=== PATIENT | male | born 1950 | race Caucasian/White ===

== ENCOUNTER → 2016-08-04 | Day surgery (SDC) | payer OTHER, MEDICARE ==
[2016-07-14 07:57] VITALS: Ht 177.8 cm; Wt 104.5 kg
[~2016-08-04] VITALS: Ht 177.8 cm; Wt 104.5 kg
[~2016-08-04] MED LIST: ASPI81TA28 PO; BRIM0.2S OPR; BROM0.07 OPL; HYDR-4383 PO; LATA0.009 OPB; LIDOCAINE HCL 1% MPF 5 ML VIAL ONE; LISI1TAB3 PO; PHEN32.44 PO; PRED10TA PO; PRED1SUS3 OPL; SIMV20TA2 PO; SODIUM CHLORIDE 0.9% INJ 10 ML VIAL ONE
--- NOTE | 2016-08-04 13:24 | History & Physical Bridge - SC ---
H&P Re-Evaluation Bridge Note: I have examined the patient, reviewed the History & Physical and in the interval since the performance of the History & Physical I have noted the following changes of clinical significance: No changes noted
[2016-08-04 13:50] VITALS: TEMP 37
--- NOTE | 2016-08-04 13:58 | Discharge Instructions ---
Discharge Instructions Date of Service Aug 04, 2016. Visit Reason for Visit: Lumbar Disc Degeneration Discharge Discharge Diagnosis / Problem: Right leg pain Discharge Goals Goal(s): Decrease discomfort, Improve function Activity Recommendations Activity Limitations: resume your previous activity Anesthesia . Post Anesthesia Instructions: If you have had General Anesthesia or IV Sedation: * Do not drive today. * Resume driving when surgeon permits. * Do not make important decisions or sign legal documents today. * Call surgeon for: 1. Temperature elevations greater than 101 degrees F. 2. Uncontrollable pain. 3. Excessive bleeding. 4. Persistent nausea and vomiting. 5. Medication intolerance (nausea, vomiting or rash). * For nausea and vomiting use only clear liquids such as: tea, soda, bouillon until nausea subsides, then gradually increase diet as tolerated. * If you have any concerns or questions, call your surgeon's office. If physician is unavailable and it is an emergency, call 911 or go to the nearest emergency room. . Diet Recommendations Recommended Home Diet: resume previous diet Procedures Procedures Performed: Caudal Epidural Steroid Injection Pending Studies Studies pending at discharge: no Medical Emergencies . Who to Call and When: Medical Emergencies: If at any time you feel your situation is an emergency, please call 911 immediately. . Non-Emergent Contact Non-Emergency issues call your: Specialist . . "Provider Documentation" section prepared by Valentino Milton.
[2016-08-04 14:01] VITALS: BP 133/80; PULSE 68; O2SAT 98
--- NOTE | 2016-08-04 14:34 | OPERATIVE REPORT ---
DATE OF OPERATION: 08/04/2016 PREOPERATIVE DIAGNOSIS: History of a left hemilaminectomy L5-S1, L5-S1 disc disease with persistent right lower extremity radiculopathy. POSTOPERATIVE DIAGNOSIS: Same. PROCEDURE: Caudal epidural steroid injection under fluoroscopic guidance. SURGEON: Dr. Valentino Milton. INDICATIONS: The patient is a 66-year-old white male who has received caudal epidurals in the past with very good results in terms of relieving pain. He last underwent one in October with good results. However, the pain has returned and is problematic and functionally limiting to him. He presents today for an epidural steroid injection to provide him with relief. PHYSICAL EXAMINATION: GENERAL: Pleasant male seated comfortably in no apparent distress. MUSCULOSKELETAL: Lumbar paraspinal muscles had some mild sciatic notch sensitivity. He had normal lower extremity strength. Negative seated straight leg raises. CONSENT: Verbal and written consent was obtained from the patient. Risks and benefits were reviewed. Risks include but are not limited to epidural abscess and allergic reaction and he wishes to proceed. PROCEDURE: The patient was taken back to the special procedures room of the [facility] where he was maintained in a prone position. Backside was cleansed with Betadine x3 and a dry sterile dressing was applied. Fluoroscope was used to identify the sacral hiatus and the overlying skin was then anesthetized with 4 mL of lidocaine 1% with a 25 gauge 1.5-inch needle with 5 mL of preservative free sodium chloride. A 25 gauge 3.5 inch spinal needle was then directed into the canal and advanced under fluoroscopic guidance. He then underwent injection after negative aspiration of 40 mg of Depo-Medrol and 5 mL of preservative free sodium chloride. Injection was well tolerated. DISPOSITION: 1. The patient is taken out into the discharge recovery area where he will be discharged home once discharge criteria have been met. 2. Follow up in the [facility] office in 2-4 weeks. I attest to the content of the Intraoperative Record and any orders documented therein. Any exceptio ns are noted below.
== END | disposition home or self-care (01) ==
LOC: X.SURG 12:47
PROVIDERS: ATTEND Physical Medicine & Rehabilitation
DX: M51.37 Other intervertebral disc degeneration, lumbosacral region (principal); M54.17 Radiculopathy, lumbosacral region

== ENCOUNTER → 2016-08-16 | Day surgery (SDC) | payer OTHER, MEDICARE ==
[2016-07-22 10:28] VITALS: Ht 177.8 cm; Wt 104.5 kg
[~2016-08-16] VITALS: Ht 177.8 cm; Wt 104.5 kg
[~2016-08-16] MED LIST changes: +500ML BSS 0.3ML EPI 1:1000PF IRRIG ONE; +ACETAMINOPHEN 325 MG TAB PO PRN; +AMVISC PLUS 0.8ML SYRINGE INT OCU ONE; +ATROPINE SULFATE 0.1 MG/ML 5ML SYR IV PRN; +BSS FLUSH ONE; +EpHEDrine SULFATE INJ 50 MG/ML AMP IV PRN; +EpINEphrine INJ 1MG/ML AMP 1 MG/ML AMP ONE; +LACTATED RINGER'S 1000ML 500 ML IV SCH; +LIDOCAINE 3.5% OPH GEL PER APPLICATION CHARGE ONE; +LIDOCAINE HCL 1% MPF 2 ML VIAL ONE; -LIDOCAINE HCL 1% MPF 5 ML VIAL ONE; +MIDAZOLAM HCL 1 MG/ML 2ML VIAL ONE; +OCUCOAT 1 ML SOLN IO ONE; +POVIDONE-IODINE OP SOLN 30 ML BTL ONE; -PRED10TA PO; +PROPARACAINE 0.5% OP SOLN PER DROP CHARGE OPR SCH; -SODIUM CHLORIDE 0.9% INJ 10 ML VIAL ONE; +TOBRAMYCIN/DEXAMETHASONE OPH OINT PER APPLN CHARGE ONE
[2016-08-16] MEDS: PHENYLEPHRINE HCL 2.5% OP SOLN PER DROP CHARGE OPR SCH ×2 (09:33→09:38)
[2016-08-16] MEDS: TROPICAMIDE 1% OP SOLN PER DROP CHARGE OPR SCH ×2 (09:34→09:39)
[2016-08-16] MEDS: CYCLOPENTOLATE HCL 1% OP SOLN PER DROP CHARGE OPR SCH ×2 (09:35→09:40)
[2016-08-16] MEDS: KETOROLAC 0.5% OP SOLN PER DROP CHARGE OPR SCH ×2 (09:36→09:41)
[2016-08-16] MEDS: GATIFLOXACIN OP SOLN PER DROP CHARGE OPR SCH ×2 (09:37→09:47)
--- NOTE | 2016-08-16 09:46 | History & Physical Bridge - SC ---
H&P Re-Evaluation Bridge Note: I have examined the patient, reviewed the History & Physical and in the interval since the performance of the History & Physical I have noted the following changes of clinical significance: Diagnosis: Right Cataract Procedure: Right Cataract Removal with Lens Implant No changes noted
[2016-08-16] MEDS: AMVISC PLUS 0.8ML SYRINGE INT OCU ONE ×4 (10:32→10:33)
--- NOTE | 2016-08-16 10:43 | Discharge Instructions-SurgCtr ---
Discharge Instructions Date of Service Aug 16, 2016. Visit Reason for Visit: Cataract Right Eye Discharge Discharge Diagnosis / Problem: cataract Discharge Goals Goal(s): Improve function Activity Recommendations Activity Limitations: per Instructions/Follow-up section Anesthesia . Post Anesthesia Instructions: If you have had General Anesthesia or IV Sedation: * Do not drive today. * Resume driving when surgeon permits. * Do not make important decisions or sign legal documents today. * Call surgeon for: 1. Temperature elevations greater than 101 degrees F. 2. Uncontrollable pain. 3. Excessive bleeding. 4. Persistent nausea and vomiting. 5. Medication intolerance (nausea, vomiting or rash). * For nausea and vomiting use only clear liquids such as: tea, soda, bouillon until nausea subsides, then gradually increase diet as tolerated. * If you have any concerns or questions, call your surgeon's office. If physician is unavailable and it is an emergency, call 911 or go to the nearest emergency room. . Instructions / Follow-Up Instructions / Follow-Up ACTIVITY RECOMMENDATIONS: * No strenuous lifting, jogging or running for 4 days * No swimming or yard work for 1 week. * Limited bending is permitted, such as putting on shoes. RETURN TO SCHOOL/WORK: No work until seen by physician in office. MEDICATIONS: Resume previous medications unless instructed otherwise by your surgeon. This includes eye drops for glaucoma. Zymaxid/Gatifloxacin (miramontes cap) - one drop every 2 hours until bedtime Nevanac/Ilevro/Prolensa/Ketorolac (dior cap) - one drop every 4 hours until bedtime Prednisolone (white/pink cap, SHAKE WELL) - one drop every 2 hours until bedtime Starting tomorrow - all 3 drops every 4 hours until seen in the office Optive drops - as needed for discomfort SPECIAL CARE INSTRUCTIONS: * Wear eyeshield when sleeping, for four nights. * You may wear your own glasses or sunglasses while awake. * You may read or watch TV * You may shower and wash your face, but be gentle around the eye and pat dry. * Blurry vision and mild irritation are normal. * Call office if pain is more severe or vision becomes dark at . FOLLOW UP VISIT: Follow-up with Dr Velazquez tomorrow. Diet Recommendations Home Diet: resume previous diet Procedures Procedures Performed: Right Cataract Phacoemulsification With Intraocular Lens Implant Pending Studies Studies pending at discharge: no Medical Emergencies . Who to Call and When: Medical Emergencies: If at any time you feel your situation is an emergency, please call 911 immediately. . Non-Emergent Contact Non-Emergency issues call your: Paper Folder . . "Provider Documentation" section prepared by Dirk Velazquez.
--- NOTE | 2016-08-16 10:43 | [facility] Operative Report ---
Operative Report Date of Service Aug 16, 2016. Operative Report 1. PREOPERATIVE DIAGNOSIS: Cataract of the right eye. 2. POSTOPERATIVE DIAGNOSIS: Same. 3. PROCEDURE: Phacoemulsification with intraocular lens implantation of the right eye. SURGEON: Dr. Dirk Velazquez. ANESTHESIA: Topical Lidocaine gel, 1% Non- Preserved intracameral Lidocaine, and monitored intravenous sedation. INDICATIONS FOR THE PROCEDURE: The patient is a 66 - year-old male with a history of cataract of the right eye causing significant visual impairment. The details of the proposed procedure were explained to the patient who asked appropriate questions and following discussion of all risks, benefits and alternatives agreed to have the procedure done. 4. OPERATION AND FINDINGS: DESCRIPTION OF PROCEDURE: After informed consent was obtained, the patient was brought to the Operating Room at the [facility]. The patient was placed in a supine position and then the right eye was prepped and draped in the usual sterile fashion for intraocular surgery. A drop of topical Lidocaine gel was placed in the operative eye. A wire lid speculum was then placed in the fornices. A corneal paracentesis was then created temporally. The Non-Preserved Lidocaine was then instilled into the anterior chamber. The anterior chamber was then pressurized with viscoelastic. A 2.0 mm clear corneal incision was then created temporally. A cystotome was inserted into the anterior chamber and used to create a tear in the anterior lens capsule. This capsular tear was then used to create a small flap and the flap was dragged in a counterclockwise direction in order to create a continuous curvilinear capsulorrhexis. Hydrodissection was accomplished with balanced salt solution. Phacoemulsification of the lens nucleus was then performed in a standard [id number] technique. The phaco time was 39 seconds with an average power of 19 %. The remaining cortical material was removed using irrigation aspiration. The capsular bag was then filled with viscoelastic. A B[employer]ch [employer] Lomb MI60L +18.0 diopters lens was then loaded into the injector and injected into the capsular bag. The remaining viscoelastic was removed with the irrigation aspiration handpiece. The wound was hydrated and then checked and found to be watertight. The intraocular pressure was checked and found to be adequate. The wire lid speculum was removed and the patient's face was cleaned and dried. TobraDex ointment was placed in the inferior fornix. The patient was discharged to the Recovery Room having tolerated the procedure well. There were no complications. The patient will be seen tomorrow in the office for follow-up. I attest to the content of the Intraoperative Record and any orders documented therein. Any exceptions are noted below.
[2016-08-16 10:45] VITALS: TEMP 36.7
[2016-08-16 10:58] VITALS: BP 131/74; PULSE 66; O2SAT 96
--- NOTE | 2016-08-16 11:00 | Anesthesia Progress Nt - [facility] ---
Anesthesia Post Op Note Date & Time Aug 16, 2016 at 10:59 Vital Signs Pain Intensity: 0 Vital Signs Past 12 Hours Date Time Temp Pulse Resp B/P Pulse Ox O2 Delivery O2 Flow Rate FiO2 08/16/16 10:45 36.7 66 18 148/82 97 Room Air 08/16/16 09:16 36.8 72 16 145/73 97 Room Air Notes Mental Status: alert / awake / arousable, participated in evaluation Pt Amnestic to Procedure: Yes Nausea / Vomiting: adequately controlled Pain: adequately controlled Airway Patency, RR, SpO2: stable & adequate BP & HR: stable & adequate Hydration State: stable & adequate Anesthetic Complications: no major complications apparent
== END | disposition home or self-care (01) ==
LOC: X.SURG 08:47
PROVIDERS: ATTEND Ophthalmology
DX: H26.9 Unspecified cataract (principal); R56.9 Unspecified convulsions; I10 Essential (primary) hypertension; F17.200 Nicotine dependence, unspecified, uncomplicated; E78.5 Hyperlipidemia, unspecified; Z79.899 Other long term (current) drug therapy; Z79.82 Long term (current) use of aspirin; Z83.6 Family history of other diseases of the respiratory system

== ENCOUNTER → 2016-09-13 | Day surgery (SDC) | payer OTHER, MEDICARE ==
[2016-08-29 12:02] VITALS: Ht 177.8 cm; Wt 102.3 kg
[~2016-09-13] VITALS: Ht 177.8 cm; Wt 102.3 kg
[~2016-09-13] MED LIST changes: +ONDANSETRON INJ 2 MG/ML 2 ML VIAL IV PRN; +PROPARACAINE 0.5% OP SOLN PER DROP CHARGE OPL SCH; -PROPARACAINE 0.5% OP SOLN PER DROP CHARGE OPR SCH
[2016-09-13] MEDS: PHENYLEPHRINE HCL 2.5% OP SOLN PER DROP CHARGE OPL SCH ×2 (10:07→10:12)
[2016-09-13] MEDS: TROPICAMIDE 1% OP SOLN PER DROP CHARGE OPL SCH ×2 (10:08→10:13)
[2016-09-13] MEDS: CYCLOPENTOLATE HCL 1% OP SOLN PER DROP CHARGE OPL SCH ×2 (10:09→10:14)
[2016-09-13] MEDS: KETOROLAC 0.5% OP SOLN PER DROP CHARGE OPL SCH ×2 (10:10→10:15)
[2016-09-13] MEDS: GATIFLOXACIN OP SOLN PER DROP CHARGE OPL SCH ×2 (10:11→10:21)
--- NOTE | 2016-09-13 11:13 | [facility] Operative Report ---
Operative Report Date of Service September 13, 2016. Operative Report 1. PREOPERATIVE DIAGNOSIS: Cataract of the left eye. 2. POSTOPERATIVE DIAGNOSIS: Same. 3. PROCEDURE: Phacoemulsification with intraocular lens implantation of the left eye. SURGEON: Dr. Dirk Velazquez. ANESTHESIA: Topical Lidocaine gel, 1% Non- Preserved intracameral Lidocaine, and monitored intravenous sedation. INDICATIONS FOR THE PROCEDURE: The patient is a 66 - year-old male with a history of cataract of the left eye causing significant visual impairment. The details of the proposed procedure were explained to the patient who asked appropriate questions and following discussion of all risks, benefits and alternatives agreed to have the procedure done. 4. OPERATION AND FINDINGS: DESCRIPTION OF PROCEDURE: After informed consent was obtained, the patient was brought to the Operating Room at the [facility]. The patient was placed in a supine position and then the left eye was prepped and draped in the usual sterile fashion for intraocular surgery. A drop of topical Lidocaine gel was placed in the operative eye. A wire lid speculum was then placed in the fornices. A corneal paracentesis was then created temporally. The Non-Preserved Lidocaine was then instilled into the anterior chamber. The anterior chamber was then pressurized with viscoelastic. A 2.0 mm clear corneal incision was then created temporally. A cystotome was inserted into the anterior chamber and used to create a tear in the anterior lens capsule. This capsular tear was then used to create a small flap and the flap was dragged in a counterclockwise direction in order to create a continuous curvilinear capsulorrhexis. Hydrodissection was accomplished with balanced salt solution. Phacoemulsification of the lens nucleus was then performed in a standard [id number] technique. The phaco time was 28 seconds with an average power of 15 %. The remaining cortical material was removed using irrigation aspiration. The capsular bag was then filled with viscoelastic. A Bausch & Lomb MI60L +18.0 diopters lens was then loaded into the injector and injected into the capsular bag. The remaining viscoelastic was removed with the irrigation aspiration handpiece. The wound was hydrated and then checked and found to be watertight. The intraocular pressure was checked and found to be adequate. The wire lid speculum was removed and the patient's face was cleaned and dried. TobraDex ointment was placed in the inferior fornix. The patient was discharged to the Recovery Room having tolerated the procedure well. There were no complications. The patient will be seen tomorrow in the office for follow-up. I attest to the content of the Intraoperative Record and any orders documented therein. Any exceptions are noted below.
--- NOTE | 2016-09-13 11:13 | Discharge Instructions-SurgCtr ---
Discharge Instructions Date of Service September 13, 2016. Visit Reason for Visit: Left Cataract Discharge Discharge Diagnosis / Problem: cataract Discharge Goals Goal(s): Improve function Activity Recommendations Activity Limitations: per Instructions/Follow-up section Anesthesia . Post Anesthesia Instructions: If you have had General Anesthesia or IV Sedation: * Do not drive today. * Resume driving when surgeon permits. * Do not make important decisions or sign legal documents today. * Call surgeon for: 1. Temperature elevations greater than 101 degrees F. 2. Uncontrollable pain. 3. Excessive bleeding. 4. Persistent nausea and vomiting. 5. Medication intolerance (nausea, vomiting or rash). * For nausea and vomiting use only clear liquids such as: tea, soda, bouillon until nausea subsides, then gradually increase diet as tolerated. * If you have any concerns or questions, call your surgeon's office. If physician is unavailable and it is an emergency, call 911 or go to the nearest emergency room. . Instructions / Follow-Up Instructions / Follow-Up ACTIVITY RECOMMENDATIONS: * No strenuous lifting, jogging or running for 4 days * No swimming or yard work for 1 week. * Limited bending is permitted, such as putting on shoes. RETURN TO SCHOOL/WORK: No work until seen by physician in office. MEDICATIONS: Resume previous medications unless instructed otherwise by your surgeon. This includes eye drops for glaucoma. Zymaxid/Gatifloxacin (miramontes cap) - one drop every 2 hours until bedtime Nevanac/Ilevro/Prolensa/Ketorolac (dior cap) - one drop every 4 hours until bedtime Prednisolone (white/pink cap, SHAKE WELL) - one drop every 2 hours until bedtime Starting tomorrow - all 3 drops every 4 hours until seen in the office Optive drops - as needed for discomfort SPECIAL CARE INSTRUCTIONS: * Wear eyeshield when sleeping, for four nights. * You may wear your own glasses or sunglasses while awake. * You may read or watch TV * You may shower and wash your face, but be gentle around the eye and pat dry. * Blurry vision and mild irritation are normal. * Call office if pain is more severe or vision becomes dark at . FOLLOW UP VISIT: Follow-up with Dr Velazquez tomorrow. Diet Recommendations Home Diet: resume previous diet Procedures Procedures Performed: Left Cataract Phacoemulsification With Intraocular Lens Implant Pending Studies Studies pending at discharge: no Medical Emergencies . Who to Call and When: Medical Emergencies: If at any time you feel your situation is an emergency, please call 911 immediately. . Non-Emergent Contact Non-Emergency issues call your: Salon/Spa Manager . . "Provider Documentation" section prepared by Dirk Velazquez. .
[2016-09-13 11:14] VITALS: TEMP 36.6
[2016-09-13 11:30] VITALS: BP 129/75; PULSE 60; O2SAT 95
--- NOTE | 2016-09-13 11:43 | Anesthesiology Progress Note ---
Anesthesia Post Op Note Date & Time September 13, 2016 at 11:43 Vital Signs Pain Intensity: 0 Vital Signs Past 12 Hours Date Time Temp Pulse Resp B/P Pulse Ox O2 Delivery O2 Flow Rate FiO2 09/13/16 11:30 60 16 129/75 95 Room Air 09/13/16 11:14 36.6 59 16 122/70 95 Room Air 09/13/16 10:00 36.9 78 18 110/69 96 Room Air Notes Mental Status: alert / awake / arousable, participated in evaluation Pt Amnestic to Procedure: Yes Nausea / Vomiting: adequately controlled Pain: adequately controlled Airway Patency, RR, SpO2: stable & adequate BP & HR: stable & adequate Hydration State: stable & adequate Anesthetic Complications: no major complications apparent
--- NOTE | 2016-09-13 11:47 | Anesthesiology Progress Note ---
Anesthesia Post Op Note Date & Time September 13, 2016 at 11:47 Vital Signs Pain Intensity: 0 Vital Signs Past 12 Hours Date Time Temp Pulse Resp B/P Pulse Ox O2 Delivery O2 Flow Rate FiO2 09/13/16 11:30 60 16 129/75 95 Room Air 09/13/16 11:14 36.6 59 16 122/70 95 Room Air 09/13/16 10:00 36.9 78 18 110/69 96 Room Air Notes Mental Status: alert / awake / arousable, participated in evaluation Pt Amnestic to Procedure: Yes Nausea / Vomiting: adequately controlled Pain: adequately controlled Airway Patency, RR, SpO2: stable & adequate BP & HR: stable & adequate Hydration State: stable & adequate Anesthetic Complications: no major complications apparent
== END | disposition home or self-care (01) ==
LOC: X.SURG 09:46
PROVIDERS: ATTEND Ophthalmology
DX: H26.9 Unspecified cataract (principal); K21.9 Gastro-esophageal reflux disease without esophagitis; M19.90 Unspecified osteoarthritis, unspecified site; E78.00 Pure hypercholesterolemia, unspecified; I10 Essential (primary) hypertension; Z86.711 Personal history of pulmonary embolism; Z86.718 Personal history of other venous thrombosis and embolism; Z79.82 Long term (current) use of aspirin; R56.9 Unspecified convulsions; J44.9 Chronic obstructive pulmonary disease, unspecified; E66.9 Obesity, unspecified

== ENCOUNTER → 2016-12-19 | Outpatient (CLI) | payer OTHER, MEDICARE ==
[~2016-12-19] MED LIST changes: -500ML BSS 0.3ML EPI 1:1000PF IRRIG ONE; -ACETAMINOPHEN 325 MG TAB PO PRN; -AMVISC PLUS 0.8ML SYRINGE INT OCU ONE; -ATROPINE SULFATE 0.1 MG/ML 5ML SYR IV PRN; -BSS FLUSH ONE; -EpHEDrine SULFATE INJ 50 MG/ML AMP IV PRN; -EpINEphrine INJ 1MG/ML AMP 1 MG/ML AMP ONE; -LACTATED RINGER'S 1000ML 500 ML IV SCH; -LIDOCAINE 3.5% OPH GEL PER APPLICATION CHARGE ONE; -LIDOCAINE HCL 1% MPF 2 ML VIAL ONE; -MIDAZOLAM HCL 1 MG/ML 2ML VIAL ONE; -OCUCOAT 1 ML SOLN IO ONE; -ONDANSETRON INJ 2 MG/ML 2 ML VIAL IV PRN; -POVIDONE-IODINE OP SOLN 30 ML BTL ONE; -PROPARACAINE 0.5% OP SOLN PER DROP CHARGE OPL SCH; -TOBRAMYCIN/DEXAMETHASONE OPH OINT PER APPLN CHARGE ONE
--- NOTE | 2016-12-19 09:06 | DIAGNOSTIC IMAGING REPORT ---
LEFT UPPER EXT JOINT WITHOUT CLINICAL HISTORY: 66 years-old Male presenting with ACUTE PAIN OF LEFT SHOULDER, NO HISTORY OF CANCER, CONCERN FOR ROTATOR CUFF TEAR, INJECTION OF THE LEFT LEFT SHOULDER LAST WEDDAY. TECHNIQUE: Multisequence, multiplanar MR imaging of the left shoulder was performed without the use of intravenous contrast. IV contrast: None. COMPARISON: None. FINDINGS: Image quality is mildly degraded by motion artifact. Localizer images: Unremarkable. Bony cystic change subjacent to the greater tuberosity. Minimal bony edema noted in the acromion subjacent to extensive degenerative changes of the acromioclavicular joint. The undersurface of the acromion is concave without narrowing of the acromiohumeral interval area No subluxation of the humeral head. Articular cartilage grossly intact. No focal labral tear, however, increased signal within the superior labrum may suggest chronic degenerative change. Increased signal intensity within the biceps labral complex with focal linear defect at the bony glenoid insertion suggesting partial tear of the origin of the long head of the biceps. The long head of the biceps tendon remains within the intertubercular groove. Short head of the biceps tendon normal. Trace laminar fluid within the subacromial subdeltoid bursa with a small amount of joint fluid. Increased signal intensity diffusely within the supraspinatus and infraspinatus tendons in both the critical zone and insertion of fibers. Additionally, full-thickness tear of the supraspinatus at the critical zone is evident along the anterior fibers. There is also a full-thickness tear of the infraspinatus at the junction with the supraspinatus within the medial insertional fibers. Teres minor and subscapularis tendons intact. Normal muscle bulk. No evidence of extensive fatty atrophy of the rotator cuff musculature. IMPRESSION: 1. Full-thickness tear of the supraspinatus in the anterior fibers at the critical zone. 2. Full-thickness tear of the infraspinatus at the junction with the supraspinatus within the medial insertional fibers. 3. Concern for partial tear of the origin of the long head of the biceps at the bony glenoid. 4. Bony cystic change at the greater tuberosity suggest chronic impingement. 5. Degenerative changes of the acromioclavicular joint. Electronically signed by: Angel Mcclain M.D. 12/19/2016 9:05 AM Dictated Date/Time: 12/19/2016 8:53 AM
== END | disposition home or self-care (01) ==
LOC: C.MRI 07:45
PROVIDERS: ATTEND Orthopaedic Surgery
DX: M75.102 Unspecified rotator cuff tear or rupture of left shoulder, not specified as traumatic (principal); X58.XXXA Exposure to other specified factors, initial encounter

== ENCOUNTER 2023-06-14 12:59 | Observation (INO) ==
--- NOTE | 2023-06-14 13:07 | ED Triage Note ---
Date of Service June 14, 2023 Provider in Triage Author: Kermit Sparks History of Present Illness This patient was briefly evaluated while in triage. An abbreviated physical exam was performed. This patient is a 73-year-old Male who presents to the ED for evaluation of palpitations and episodes of passing out over the past. Patient does have an upcoming appointment with a manager food safety. The patient reports his symptoms have been ongoing since last January when he was diagnosed with COVID-19. Patient reports brain fog and lightheadedness. Patient denies any chest pain. He does report shortness of breath. Symptoms have been intermittent in nature. Last syncopal episode was this past Monday when he was rushing from an upper floor to lower floor in his house. Physical Exam CONSTITUTIONAL: Healthy and well nourished. Alert and oriented x 3. HEENT: Pupils equal, round and reactive. RESPIRATORY: Clear to auscultation bilaterally with no wheezing, crackles, rhonchi or stridor. CARDIOVASCULAR: Regular rate and rhythm with no murmurs, rubs or gallops. MUSCULOSKELETAL: Full range of motion of all joints without discomfort. INTEGUMENTARY: No rash or other significant dermatologic conditions noted. HEMATOLOGIC: No ecchymosis or petechiae. PSYCHIATRIC: Positive affect. NEUROLOGIC: No focal neurologic deficits noted. Initial orders for labs and / or imaging were placed and patient was placed in the waiting area until a bed is available. Please see further documentation for the full ED course.
--- NOTE | 2023-06-14 13:56 | CT Scan Report ---
CT head/brain wo con CLINICAL HISTORY: Syncope Technique: Contiguous axial CT images of the head were acquired from the base of the skull to the jacqueline godfrey without intravenous contrast administration. Images were viewed in brain, subdural and bone [facility] . Automated dose lowering techniques and/or adjustment according to patient size were utilized for this exam. Comparison: Comparison is made to CT head 1121 Findings: The ventricles, basal cisterns, and cerebral sulci are normal. There is no acute intracranial hemorrh age or evidence of acute territorial infarction. Neither mass effect, shift of the midline structures , nor abnormal extra-axial fluid collections are shown. Imaged portions of the paranasal sinuses and mastoid air cells are clear. The orbits appear normal. There are no acute fractures of the calvaria or scalp swelling. Impression: No acute intracranial hemorrhage, no evidence of acute territorial infarction or other acute intracra nial disease process. ACT 112: Negative or not required by law. Electronically signed by: Manuel Lopez M.D. 06/14/2023 1:55 PM
[2023-06-14 13:59] LABS: Basophils # (auto) 0.06 K/uL (0.00-0.20); Basophils % (auto) 0.8 %; Eosinophils # (auto) 0.12 K/uL (0.00-0.50); Eosinophils % (auto) 1.6 %; Hematocrit (blood only) 49.6 % (42.0-52.0); Hemoglobin 16.2 g/dl (14.0-18.0); Immature Granulocytes # (auto) 0.02 K/uL (0.01-0.20); Immature Granulocytes % (auto) 0.3 %; Lymphocytes # (auto) 2.01 K/uL (1.20-3.40); Mean Corpuscular Hemoglobin 29.9 pg (25.0-34.0); Mean Corpuscular Hgb Conc 32.7 g/dL (32.0-36.0); Mean Corpuscular Volume 91.7 fL (80.0-100.0); Mean Platelet Volume 9.6 fL (9.4-12.4); Monocytes # (auto) 0.66 K/uL (0.11-0.59); Monocytes % (auto) 8.9 %; Neutrophils # (auto) 4.57 K/uL (1.40-6.50); Neutrophils % (auto) 61.4 %; Platelet Count 354 K/uL (130-400); RDW Coefficient of Variation 15.8 % (11.5-14.5); RDW Standard Deviation 53.1 fL (36.4-46.3); Red Blood Count 5.41 M/uL (4.70-6.10); White Blood Count 7.44 K/ul (4.8-10.8)
[2023-06-14 14:19] LABS: Albumin Globulin Ratio 0.8 (0.9-2); Albumin Level 3.1 gm/dl (3.4-5.0); BUN Creatinine Ratio 20.5 (10-20); Bilirubin,Total 0.3 mg/dl (0.2-1.0); Creatinine Clr Calc Pharmacy 102.7 ml/min; Est GFR (African American) 103.1 ml/min; Est GFR (Non-African American) 88.9 ml/min; Globulin 3.8 gm/dl (2.5-4.0); Potassium 4.2 mmol/L (3.5-5.1); Total Protein 6.9 gm/dl (6.0-8.3)
[2023-06-14 14:25] LABS: Troponin I High Sensitivity 7.5 pg/ml (0-20)
[2023-06-14 14:28] LABS: INR 1.1 (0.9-1.1); Partial Thromboplastin Ratio 0.9; Partial Thromboplastin Time 26 Seconds (21-31); Prothrombin Time 12.2 Seconds (9.0-12.0)
[2023-06-14 14:32] LABS: Thyroid Stimulating Hormone 3.441 uIu/ml (0.300-4.500)
--- NOTE | 2023-06-14 14:33 | XRay Report ---
XR chest 1V not portable CLINICAL HISTORY: Chest pain, nonspecific TECHNIQUE: Single frontal radiograph of the chest was obtained. Comparison: Comparison is made to chest radiograph 12/03/2021 FINDINGS: Left shoulder arthroplasty is seen, new from prior. The cardiomediastinal silhouette is normal. The l ungs are clear. No evidence of pleural effusion or pneumothorax. IMPRESSION: No acute chest disease. ACT 112: Negative or not required by law. Electronically signed by: Manuel Lopez M.D. 06/14/2023 2:32 PM
[2023-06-14 15:07] LABS: D Dimer 1800 ug/L FEU (0-500)
[2023-06-14] MEDS: OPTIRAY 320 125ml IV ONE (16:08)
--- NOTE | 2023-06-14 16:28 | CT Scan Report ---
CT angio chest PE protocol CLINICAL HISTORY: PE TECHNIQUE: Multidetector row helical CT of the chest was performed with angiographic protocol. Flores l and sagittal reformations were obtained. Coronal and sagittal MIPS were obtained from the axial river a set and were submitted for review. Automated dose lowering techniques and/or adjustment according to patient size were utilized for this exam. CT DOSE: 783.52 mGy.cm Comparison: None available at the time of this dictation. FINDINGS: Lungs and pleura: Atelectasis versus scarring is seen in the dependent portions of the lungs. Bronchi al wall thickening is seen. Heart and pericardium: Heart size is normal. No pericardial effusion. Vessels: No evidence of pulmonary embolism. Mediastinum and phuong: Subcentimeter lymph nodes are seen. Chest wall and lower neck: Unremarkable. Abdomen: A hiatal hernia is seen. Bones: Unremarkable. IMPRESSION: No acute abnormality and in particular no evidence of pulmonary embolus. ACT 112: Negative or not required by law. Electronically signed by: Manuel Lopez M.D. 06/14/2023 4:27 PM
--- NOTE | 2023-06-14 16:57 | Emergency Department Note ---
Impression & Plan Syncope, Palpitation ED Provider Note ED Provider Note NAME: BETY CUI AGE:73 SEX: Male : 1950 ARRIVES VIA: [] INFORMANT: Patient ED PROVIDER(s): Vane Marquez DO CHIEF COMPLAINT: syncope HPI: This is a 73-year-old male presents emerged part with at bedside due to concern for recent syncopal events. She states last episode was on Monday when he passed out while working in their home. She states he did not remember the episode and it took a long time for him to be back to normal. He states he has had multiple frequent episodes ever since COVID of lightheadedness and has had intermittent hypotension when he checks it at home. Patient does feel some of it is related to dehydration. states even prior to that he had had episodes of hypotension and near syncope that they attributed to medications including eyedrops for his glaucoma. Patient states he feels the episodes coming on and gets lightheaded, sweaty, gets tunnel vision, and the next thing he knows he is on the floor waking up. He states with an episode 2 weeks ago he did hit his head on the toilet. He states when this first started 2 years ago they did take him off his lisinopril and he seemed better for several months. He states he does not use any anticoagulation. He does not get any preceding chest pain, shortness of breath, or headaches. denies any seizure-like activity in the episode she has noted. Patient states he does get intermittent palpitations that have been ongoing for quite some time, these are worse at night with laying down. He does have a scheduled appointment in [address] Jansen of cardiology. PAST MEDICAL HISTORY:See Below PAST SURGICAL HISTORY:See Below FAMILY HISTORY:See Below SOCIAL HISTORY:See Below HOME MEDICATIONS:See Below ALLERGIES:See Below VITALS:See Below PHYSICAL EXAMINATION: GENERAL: alert, well appearing, well nourished, no distress, non-toxic EYE EXAM: normal conjunctiva, PERRL and EOM's grossly intact OROPHARYNX: no exudate, no erythema, lips, buccal mucosa, and tongue normal and mucous membranes are moist NECK: supple, no nuchal rigidity, no adenopathy, non-tender LUNGS: Clear to auscultation. Normal chest wall mechanics, no w/r/r HEART: no murmurs, S1 normal and S2 normal ABDOMEN: abdomen soft, non-tender, normo-active bowel sounds, no masses, no rebound or guarding. BACK: Back is symmetrical on inspection and there is no deformity, no midline tenderness, no CVA tenderness. SKIN: no rashes, petechiae, orbruising UPPER EXTREMITIES: upper extremities are grossly normal. FROM, nml pulses b/l. LOWER EXTREMITIES: No pitting edema. FROM, nml pulses b/l. NEURO EXAM: Normal sensorium, cranial nerves II-XII grossly intact, normal speech, no facial droop,nogross weakness of arms, no gross weakness of legs. Gross sensation intact. No ataxia. Vital Signs: reviewed and remarkable Differential Diagnosis: vasovagal event, infection, hypoglycemia, electrolyte abnormalities, toxidrome, substance abuse, dysrhythmia, ACS, as well as others were entertained. MEDICAL DECISION MAKING: This is a 73-year-old male presents emergency department due to concern for several episodes of syncope in the last 2 to 3 weeks. Patient was afebrile vital signs stable. Labs drawn and sent, IV established, EKG and chest x-ray performed at bedside interpreted by me and patient monitored on telemetry. Patient initially sent for CT of the head from triage which was unremarkable. D-dimer came back elevated and patient does have prior history of PEs and so he was sent for CT angiography of the chest additionally. No PE is noted per radiology. Patient's other labs reassuring. Patient was given 1 L of normal saline based on our discussion of his poor water intake and likely coming dehydration. Patient is also had intermittent palpitations that do not necessarily seem related to his episodes of syncope although he states his syncope is always with exertion. After IV fluids given here orthostatics were performed and were negative. Ambulatory trial performed with nursing staff and patient appeared unsteady and reported feeling unsteady and off-balance. After additional bedside discussion regarding concern for his safety and going home, unclear etiology of his symptoms, and importance of additional evaluation, the case was discussed with the hospitalist team for additional evaluation and management. Patient had verbalized understanding of this and was in agreement with the plan. Consultation(s): 1943: Discussed with Dr. Calderon, [place] hospitalist, for additional evaluation. ER Treatment Provided: See below Diagnostics Interpreted By Me: -ECG: Normal sinus at 80, leftward axis, normal intervals, no acute ST/T wave changes -Cardiac Monitoring: An order was placed for continuous cardiac monitoring. The monitor shows a rate of 70 with normal sinus rhythm. -Laboratory studies: As stated above and show below. -Imaging studies: X-ray Chest: A single view study of the chest was reviewed and was negative for cardiomegaly, focal infiltrate, effusion, pulmonary edema, or wide mediastinum. Triage Nursing Note Reviewed Prior/Outside Records Reviewed Past Med/Surg History Medical History Bulging disc Degenerative disc disease Osteoarthritis GERD (gastroesophageal reflux disease) Glaucoma Restless leg syndrome Seizure Grand mal (most recent 1978) Migraine Pulmonary embolism 1985 post-op (back surgery) Hypertension Hyperlipidemia Surgical History History of sinus surgery Endoscopic sinus surgery (08/09/18): LMA#5, atraumatic at [facility] [place]. No issues noted per post-op anesthesia progress note. H/O eye surgery Detached retina repairs H/O sinus surgery History of repair of rotator cuff R/L History of carpal tunnel release R/L History of discectomy Lumbar History of colonoscopy Dr. Richards with polypectomy History of tooth extraction History of cataract surgery R/L Family History Father Family hx of colon cancer Cancer Colorectal cancer Heart disease Grandfather (Maternal) Family hx of colon cancer Grandfather Colorectal cancer Social History Smoking Status: Current every day smoker Tobacco Type: Cigarettes Cigarettes Per Day: 7; Second Hand Exposure: Yes; Do You Dip or Chew Tobacco: No; Tobacco Cessation Education Requested by Patient: No Hx Alcohol Use: Yes Alcohol type: beer Hx Substance Use: No Preferred Language: [place]i Communication Ability: Effective Etl [employer] Architect Required: No Beliefs That Will Affect Care: None marital status: Current Living Situation: Spouse Other Information That Helps Us Care for You: No Feels Safe at Home: Yes Safety Concerns: Feels Safe At This Time Diet: regular Assistive Devices: Glasses Allergies Allergies Allergy/AdvReac Type Severity Reaction Status Date / Time dorzolamide Allergy Severe eyes Verified 06/14/23 20:59 swollen azithromycin Allergy Intermediate Rash Verified 06/14/23 21:04 Home Meds Home Medications Medication Instructions Recorded Confirmed latanoprost 0.005 % eye drops 1 drp OPB .DAILY IN AFTERNOON 08/01/18 06/14/23 multivitamin 1 tab PO QAM 08/01/18 06/14/23 phenobarbital 32.4 mg tablet 6 tab PO QPM 08/01/18 06/14/23 simvastatin 40 mg tablet 20 mg PO PM 08/01/18 06/14/23 cholecalciferol (vitamin D3) 50 50 mcg PO QAM 12/02/21 06/14/23 mcg (2,000 unit) tablet (Vitamin D3) cyanocobalamin (vitamin B-12) 500 500 mcg PO QAM 12/02/21 06/14/23 mcg tablet zinc 50 mg tablet 50 mg PO Q OTHER DAY 12/02/21 06/14/23 aspirin 81 mg tablet,delayed 81 mg PO QPM 06/14/23 06/14/23 release tamsulosin 0.4 mg capsule 0.4 mg PO QPM 06/14/23 06/14/23 Results & Data (ED) Vital Signs Vital Signs - 24 hr 06/14/23 13:03 06/14/23 16:53 06/14/23 17:16 Temperature 36.8 C Temperature Source Temporal Artery Scan Pulse Rate - Lying 71 Pulse Rate - Sitting 80 Pulse Rate - Standing 77 Pulse Rate 85 69 Pulse Rate [Finger] Respiratory Rate 18 Respiratory Effort / Characteristics Non-Labored Spontaneous Respiratory Depth Normal Respiratory Pattern Regular Blood Pressure - Lying 181/87 H Blood Pressure - Sitting 172/79 H Blood Pressure- Standing 163/83 H Blood Pressure 131/81 Blood Pressure [Right Arm] Blood Pressure Mean 97 Blood Pressure Mean [Right Arm] Blood Pressure Position Sitting Pulse Oximetry 97 Oxygen Delivery Method Room Air Sepsis Recent Fever Within 48 Hours No Sepsis New/Unexplained Change in Mental Status N/A Sepsis Action Taken by Nursing No Action Required 06/14/23 19:16 06/14/23 20:16 Temperature Temperature Source Pulse Rate - Lying Pulse Rate - Sitting Pulse Rate - Standing Pulse Rate Pulse Rate [Finger] 70 76 Respiratory Rate 14 19 Respiratory Effort / Characteristics Respiratory Depth Respiratory Pattern Blood Pressure - Lying Blood Pressure - Sitting Blood Pressure- Standing Blood Pressure Blood Pressure [Right Arm] 166/89 H 155/93 H Blood Pressure Mean Blood Pressure Mean [Right Arm] 114 113 Blood Pressure Position Pulse Oximetry 94 95 Oxygen Delivery Method Room Air Sepsis Recent Fever Within 48 Hours Sepsis New/Unexplained Change in Mental Status Sepsis Action Taken by Nursing Laboratory Data 06/14/23 13:30 06/14/23 13:30 Lab Results 06/14/23 Range/Units 13:30 WBC 7.44 (4.8-10.8) K/ul RBC 5.41 (4.70-6.10) M/uL Hgb 16.2 (14.0-18.0) g/dl Hct 49.6 (42.0-52.0) % MCV 91.7 (80.0-100.0) fL MCH 29.9 (25.0-34.0) pg MCHC 32.7 (32.0-36.0) g/dL RDW Std Deviation 53.1 H (36.4-46.3) fL RDW Coeff of Vince 15.8 H (11.5-14.5) % Plt Count 354 (130-400) K/uL MPV 9.6 (9.4-12.4) fL Immature Gran % (Auto) 0.3 % Neut % (Auto) 61.4 % Lymph % (Auto) 27.0 % [place] % (Auto) 8.9 % Eos % (Auto) 1.6 % Baso % (Auto) 0.8 % Neut # (Auto) 4.57 (1.40-6.50) K/uL Lymph # (Auto) 2.01 (1.20-3.40) K/uL [place] # (Auto) 0.66 H (0.11-0.59) K/uL Eos # (Auto) 0.12 (0.00-0.50) K/uL Baso # (Auto) 0.06 (0.00-0.20) K/uL Immature Gran # (Auto) 0.02 (0.01-0.20) K/uL PT 12.2 H (9.0-12.0) Seconds INR 1.1 (0.9-1.1) APTT 26 (21-31) Seconds PTT Ratio 0.9 D-Dimer 1800 H* (0-500) ug/L FEU Sodium 136 (136-145) mmol/L Potassium 4.2 (3.5-5.1) mmol/L Chloride 104 (98-107) mmol/L Carbon Dioxide 27 (21-32) mmol/L Anion Gap 5 (3-11) BUN 16 (6-23) mg/dl Creatinine 0.78 (0.6-1.4) mg/dl Est Cr Clr Drug Dosing 102.7 ml/min Est GFR ( Amer) 103.1 ml/min Est GFR (Non-Af Amer) 88.9 ml/min BUN/Creatinine Ratio 20.5 H (10-20) Glucose 81 (70-99(Fasting)) mg/dl Calcium 9.0 (8.6-10.3) mg/dl Phosphorus 3.9 (2.5-4.9) mg/dl Magnesium 1.7 (1.7-2.4) mg/dl Total Bilirubin 0.3 (0.2-1.0) mg/dl AST 21 (13-39) U/L ALT 15 (7-52) U/L Alkaline Phosphatase 83 (34-104) U/L Troponin I High Sens 7.5 (0-20) pg/ml Total Protein 6.9 (6.0-8.3) gm/dl Albumin 3.1 L (3.4-5.0) gm/dl Globulin 3.8 (2.5-4.0) gm/dl Albumin/Globulin Ratio 0.8 L (0.9-2) TSH 3.441 (0.300-4.500) uIu/ml Administered Medications Discontinued Medications Aspirin (Aspirin 81 Mg Ectab) 81 mg PO NOW STA Stop: 06/14/23 21:53 Last Admin: 06/14/23 22:30 Dose: 81 mg Documented By: HARRIETT Sodium Chloride (Nss) 1,000 mls @ 999 mls/hr IV .Q1H1M ONE Stop: 06/14/23 18:11 Last Infusion: 06/14/23 18:20 Dose: Infused Documented By: Admin: 06/14/23 17:15 Dose: 999 mls/hr Documented By: CARMITA Ioversol (Optiray 320 125ml) 115 ml IV ONCE ONE Stop: 06/14/23 16:08 Last Admin: 06/14/23 16:08 Dose: 115 ml Documented By: CONNOR Phenobarbital (Phenobarbital 30 Mg Tab) 180 mg PO NOW STA Stop: 06/14/23 21:53 Last Admin: 06/14/23 22:30 Dose: 180 mg Documented By: HARRIETT Simvastatin (Simvastatin 20 Mg Tab) 20 mg PO NOW STA Stop: 06/14/23 21:53 Last Admin: 06/14/23 22:30 Dose: 20 mg Documented By: HARRIETT Imaging Data Radiologist's Impression: Chest X-Ray 06/14/23 13:07 XR chest 1V not portable CLINICAL HISTORY: Chest pain, nonspecific TECHNIQUE: Single frontal radiograph of the chest was obtained. Comparison: Comparison is made to chest radiograph 12/03/2021 FINDINGS: Left shoulder arthroplasty is seen, new from prior. The cardiomediastinal silhouette is normal. The lungs are clear. No evidence of pleural effusion or pneumothorax. IMPRESSION: No acute chest disease. ACT 112: Negative or not required by law. Electronically signed by: Manuel Lopez M.D. 06/14/2023 2:[address] 06/14/23 13:07 CT head/brain wo con CLINICAL HISTORY: Syncope Technique: Contiguous axial CT images of the head were acquired from the base of the skull to the vertex without intravenous contrast administration. Images were viewed in brain, subdural and bone windows. Automated dose lowering techniques and/or adjustment according to patient size were utilized for this exam. Comparison: Comparison is made to CT head 1121 Findings: The ventricles, basal cisterns, and cerebral sulci are normal. There is no acute intracranial hemorrhage or evidence of acute territorial infarction. Neither mass effect, shift of the midline structures, nor abnormal extra-axial fluid collections are shown. Imaged portions of the paranasal sinuses and mastoid air cells are clear. The orbits appear normal. There are no acute fractures of the calvaria or scalp swelling. Impression: No acute intracranial hemorrhage, no evidence of acute territorial infarction or other acute intracranial disease process. ACT 112: Negative or not required by law. Electronically signed by: Manuel Lopez M.D. 06/14/2023 1:55 PM Chest CTA 06/14/23 15:56 CT angio chest PE protocol CLINICAL HISTORY: PE TECHNIQUE: Multidetector row helical CT of the chest was performed with angiographic protocol. Coronal and sagittal reformations were obtained. Coronal and sagittal MIPS were obtained from the axial data set and were submitted for review. Automated dose lowering techniques and/or adjustment according to patient size were utilized for this exam. CT DOSE: 783.52 mGy.cm Comparison: None available at the time of this dictation. FINDINGS: Lungs and pleura: Atelectasis versus scarring is seen in the dependent portions of the lungs. Bronchial wall thickening is seen. Heart and pericardium: Heart size is normal. No pericardial effusion. Vessels: No evidence of pulmonary embolism. Mediastinum and phuong: Subcentimeter lymph nodes are seen. Chest wall and lower neck: Unremarkable. Abdomen: A hiatal hernia is seen. Bones: Unremarkable. IMPRESSION: No acute abnormality and in particular no evidence of pulmonary embolus. ACT 112: Negative or not required by law. Electronically signed by: Manuel Lopez M.D. 06/14/2023 4:27 PM Discharge Plan Visit Data Chief Complaint: Syncope Stated Complaint: lightheade,sob, syncope, ref by doc ED Provider: Vane Marquez Discharge Problem: Syncope, Palpitation Patient Disposition: Admitted As Inpatient Discharge Instructions Interventions: ED Discharge Assessment Last Done: 06/14/23 21:16
[2023-06-14] MEDS: SODIUM CHLORIDE 0.9% 1,000 ML IV ONE (17:15)
[2023-06-14 17:33] LABS: Magnesium 1.7 mg/dl (1.7-2.4)
--- NOTE | 2023-06-14 20:23 | History & Physical Report ---
Date of Service June 14, 2023 Assessment & Plan (1) Palpitation: Plan: Patient with ongoing palpitations for the last 3+ months - started after having Covid. Electroltyes WNL as is TSH. Troponin is unremarkable. Ectopy noted on monitor. ?autonomic dysfunction post-covid, ?POTS -Observation to medical with telemetry -Check 2D echo -Repeat Orthostatic VS -Consider tilt-table testing (2) Syncope: Plan: Possibly secondary to orthostatic BP changes, ?POTS post-Covid -Monitor BP -Check orthostatic VS -PT/OT evaluation (3) Seizure: Plan: Chronic. Stable. Last seizure in 1978 -Continue Phenobarbital at home dose -Check level (4) Hyperlipidemia: Plan: Chronic. Stable -Continue Simvastatin (5) Hypertension: History of Present Illness Chief Complaint: syncope Primary Care Provider: Krystian Joel Dre Vera is a pleasant 73yo male with history of HTN, HLP, prior PE and Seizure disorder presenting from home with palpitations. Patient reports his symptoms all started after having Covid in January. He has been having palpitations daily, multiple times per day. The episodes last several minutes to hours. He does not think that he has associated chest pain or shortness of breath with the palpitations. He has had ongoing lightheadedness, XIE as well as multiple episodes of syncope but cannot clearly state that these episodes are associated with his palpitations. He has had brain fog intermittently as well and occasional diarrhea. Patient has had three syncopal episodes in the last two weeks. His first episode he just got out of bed and walked to the bathroom. He became dizzy and passed out at the toilet. He had another syncopal episode today - he was rushing around the house and going upstairs to get tools when he became dizzy and passed out. This event was witnessed by his - no reported seizure activity or incontinence. He was confused when he woke up and had no recollection of passing out. He reports occasional dizziness with positional changes. No cardiac disease or CHF. No arrhythmia. Patient had an event monitor 20 years ago for palpitations with unremarkable findings. Orthostatic VS NEGATIVE in the ER Allergies Allergy/AdvReac Type Severity Reaction Status Date / Time dorzolamide Allergy Severe eyes Verified 06/14/23 20:59 swollen azithromycin Allergy Intermediate Rash Verified 06/14/23 21:04 Home Medications Medication Instructions Recorded Confirmed Type latanoprost 0.005 % eye drops 1 drp OPB .DAILY IN AFTERNOON 08/01/18 06/14/23 History multivitamin 1 tab PO QAM 08/01/18 06/14/23 History phenobarbital 32.4 mg tablet 6 tab PO QPM 08/01/18 06/14/23 History simvastatin 40 mg tablet 20 mg PO PM 08/01/18 06/14/23 History cholecalciferol (vitamin D3) 50 50 mcg PO QAM 12/02/21 06/14/23 History mcg (2,000 unit) tablet (Vitamin D3) cyanocobalamin (vitamin B-12) 500 500 mcg PO QAM 12/02/21 06/14/23 History mcg tablet zinc 50 mg tablet 50 mg PO Q OTHER DAY 12/02/21 06/14/23 History aspirin 81 mg tablet,delayed 81 mg PO QPM 06/14/23 06/14/23 History release tamsulosin 0.4 mg capsule 0.4 mg PO QPM 06/14/23 06/14/23 History Past Med/Surg History Medical History (Updated 06/15/23 @ 02:59 by Libby Calderon DO) Bulging disc Degenerative disc disease Osteoarthritis GERD (gastroesophageal reflux disease) Glaucoma Restless leg syndrome Seizure Grand mal (most recent 1978) Migraine Pulmonary embolism 1985 post-op (back surgery) Hypertension Hyperlipidemia Surgical History History of sinus surgery Endoscopic sinus surgery (08/09/18): [place] [facility] [place] No issues not ed per post-op anesthesia progress note. H/O eye surgery Detached retina repairs H/O sinus surgery History of repair of rotator cuff R/L History of carpal tunnel release R/L History of discectomy Lumbar History of colonoscopy Dr. Richards with polypectomy History of tooth extraction History of cataract surgery R/L Family History Father Family hx of colon cancer Cancer Colorectal cancer Heart disease Grandfather (Maternal) Family hx of colon cancer Grandfather Colorectal cancer Social History Smoking Status: Current every day smoker Tobacco Type: Cigarettes Cigarettes Per Day: 7; Second Hand Exposure: Yes; Do You Dip or Chew Tobacco: No; Tobacco Cessation Education Requested by Patient: No Hx Alcohol Use: Yes Alcohol type: beer Hx Substance Use: No Preferred Language: Bermudian Communication Ability: Effective Manager Online Required: No Beliefs That Will Affect Care: None marital status: Current Living Situation: Spouse Other Information That Helps Us Care for You: No Feels Safe at Home: Yes Safety Concerns: Feels Safe At This Time Diet: regular Assistive Devices: Glasses Review of Systems Review of Systems: All systems reviewed & are unremarkable except as noted in HPI & below Physical Exam Physical Exam: General: patient resting comfortably, NAD, non-toxic in appearance, AA&O x 4 Skin: warm, dry, intact, no rashes or lesions HEENT: NC/AT, PERRL, EOMI, anicteric sclera, conjunctiva without injection, external ear normal to inspection and nontender, nares patent, moist mucus membranes, dentition intact, no oropharyngeal lesions, neck supple, trachea midline, no LAD, no thyromegaly, no JVD Heart: +S1/S2, regular, +Ectopy, no m/r/g Lungs: equal air entry bilaterally, no rales/rhonchi/wheezes Abd: +BS, soft, NT/ND, no masses/organomegaly/ascites Ext: warm, 2+ pulses in UE/LE bilaterally, no clubbing/cyanosis or edema Neuro: nonfocal, patient AA&O x 4, speech intact, no facial droop, moving all extremities on command with equal strength 5/5 Frequent PACs noted on beer runner Results & Data Results & Data Vital Signs (Past 12 Hours) Vital Signs Temp Pulse Pulse Resp BP BP Pulse Ox 06/14/23 20:16 76 19 155/93 H 95 06/14/23 19:16 70 14 166/89 H 94 06/14/23 16:53 69 06/14/23 13:03 36.8 C 85 18 131/81 97 O2 Del Method 06/14/23 20:16 06/14/23 19:16 Room Air 06/14/23 16:53 06/14/23 13:03 Room Air Laboratory Results Laboratory Results WBC 7.44 K/ul (4.8-10.8) 06/14/23 13:30 RBC 5.41 M/uL (4.70-6.10) 06/14/23 13:30 Hgb 16.2 g/dl (14.0-18.0) 06/14/23 13:30 Hct 49.6 % (42.0-52.0) 06/14/23 13:30 MCV 91.7 fL (80.0-100.0) 06/14/23 13:30 MCH 29.9 pg (25.0-34.0) 06/14/23 13:30 MCHC 32.7 g/dL (32.0-36.0) 06/14/23 13:30 RDW Std Deviation 53.1 fL (36.4-46.3) H 06/14/23 13:30 RDW Coeff of Vince 15.8 % (11.5-14.5) H 06/14/23 13:30 Plt Count 354 K/uL (130-400) 06/14/23 13:30 MPV 9.6 fL (9.4-12.4) 06/14/23 13:30 Immature Gran % (Auto) 0.3 % 06/14/23 13:30 Neut % (Auto) 61.4 % 06/14/23 13:30 Lymph % (Auto) 27.0 % 06/14/23 13:30 [place] % (Auto) 8.9 % 06/14/23 13:30 Eos % (Auto) 1.6 % 06/14/23 13:30 Baso % (Auto) 0.8 % 06/14/23 13:30 Neut # (Auto) 4.57 K/uL (1.40-6.50) 06/14/23 13:30 Lymph # (Auto) 2.01 K/uL (1.20-3.40) 06/14/23 13:30 [place] # (Auto) 0.66 K/uL (0.11-0.59) H 06/14/23 13:30 Eos # (Auto) 0.12 K/uL (0.00-0.50) 06/14/23 13:30 Baso # (Auto) 0.06 K/uL (0.00-0.20) 06/14/23 13:30 Immature Gran # (Auto) 0.02 K/uL (0.01-0.20) 02/14/24 13:30 PT 12.2 Seconds (9.0-12.0) H 06/14/23 13:30 INR 1.1 (0.9-1.1) 06/14/23 13:30 APTT 26 Seconds (21-31) 06/14/23 13:30 PTT Ratio 0.9 06/14/23 13:30 D-Dimer 1800 ug/L FEU (0-500) H* 06/14/23 13:30 Sodium 136 mmol/L (136-145) 06/14/23 13:30 Potassium 4.2 mmol/L (3.5-5.1) 06/14/23 13:30 Chloride 104 mmol/L (98-107) 06/14/23 13:30 Carbon Dioxide 27 mmol/L (21-32) 06/14/23 13:30 Anion Gap 5 (3-11) 06/14/23 13:30 BUN 16 mg/dl (6-23) 06/14/23 13:30 Creatinine 0.78 mg/dl (0.6-1.4) 06/14/23 13:30 Est Cr Clr Drug Dosing 102.7 ml/min 06/14/23 13:30 Est GFR ( Amer) 103.1 ml/min 06/14/23 13:30 Est GFR (Non-Af Amer) 88.9 ml/min 06/14/23 13:30 BUN/Creatinine Ratio 20.5 (10-20) H 06/14/23 13:30 Glucose 81 mg/dl (70-99(Fasting)) 06/14/23 13:30 Calcium 9.0 mg/dl (8.6-10.3) 06/14/23 13:30 Phosphorus 3.9 mg/dl (2.5-4.9) 06/14/23 13:30 Magnesium 1.7 mg/dl (1.7-2.4) 06/14/23 13:30 Total Bilirubin 0.3 mg/dl (0.2-1.0) 06/14/23 13:30 AST 21 U/L (13-39) 06/14/23 13:30 ALT 15 U/L (7-52) 06/14/23 13:30 Alkaline Phosphatase 83 U/L (34-104) 06/14/23 13:30 Troponin I High Sens 7.5 pg/ml (0-20) 06/14/23 13:30 Total Protein 6.9 gm/dl (6.0-8.3) 06/14/23 13:30 Albumin 3.1 gm/dl (3.4-5.0) L 06/14/23 13:30 Globulin 3.8 gm/dl (2.5-4.0) 06/14/23 13:30 Albumin/Globulin Ratio 0.8 (0.9-2) L 06/14/23 13:30 TSH 3.441 uIu/ml (0.300-4.500) 06/14/23 13:30 Impressions Chest X-Ray 06/14/23 13:07 XR chest 1V not portable CLINICAL HISTORY: Chest pain, nonspecific TECHNIQUE: Single frontal radiograph of the chest was obtained. Comparison: Comparison is made to chest radiograph 12/03/2021 FINDINGS: Left shoulder arthroplasty is seen, new from prior. The cardiomediastinal silhouette is normal. The lungs are clear. No evidence of pleural effusion or pneumothorax. IMPRESSION: No acute chest disease. ACT 112: Negative or not required by law. Electronically signed by: Manuel Lopez M.D. 06/14/2023 2:[address] 06/14/23 13:07 CT head/brain wo con CLINICAL HISTORY: Syncope Technique: Contiguous axial CT images of the head were acquired from the base of the skull to the vertex without intravenous contrast administration. Images were viewed in brain, subdural and bone windows. Automated dose lowering techniques and/or adjustment according to patient size were utilized for this exam. Comparison: Comparison is made to CT head 1121 Findings: The ventricles, basal cisterns, and cerebral sulci are normal. There is no acute intracranial hemorrhage or evidence of acute territorial infarction. Neither mass effect, shift of the midline structures, nor abnormal extra-axial fluid collections are shown. Imaged portions of the paranasal sinuses and mastoid air cells are clear. The orbits appear normal. There are no acute fractures of the calvaria or scalp swelling. Impression: No acute intracranial hemorrhage, no evidence of acute territorial infarction or other acute intracranial disease process. ACT 112: Negative or not required by law. Electronically signed by: Manuel Lopez M.D. 06/14/2023 1:55 PM Chest CTA 06/14/23 15:56 CT angio chest PE protocol CLINICAL HISTORY: PE TECHNIQUE: Multidetector row helical CT of the chest was performed with angiographic protocol. Coronal and sagittal reformations were obtained. Coronal and sagittal MIPS were obtained from the axial data set and were submitted for review. Automated dose lowering techniques and/or adjustment according to patient size were utilized for this exam. CT DOSE: 783.52 mGy.cm Comparison: None available at the time of this dictation. FINDINGS: Lungs and pleura: Atelectasis versus scarring is seen in the dependent portions of the lungs. Bronchial wall thickening is seen. Heart and pericardium: Heart size is normal. No pericardial effusion. Vessels: No evidence of pulmonary embolism. Mediastinum and phuong: Subcentimeter lymph nodes are seen. Chest wall and lower neck: Unremarkable. Abdomen: A hiatal hernia is seen. Bones: Unremarkable. IMPRESSION: No acute abnormality and in particular no evidence of pulmonary embolus. ACT 112: Negative or not required by law. Electronically signed by: Manuel Lopez M.D. 06/14/2023 4:27 PM Carotid Doppler Study 06/14/23 21:52 Exam(s): US CAROTID EXAM: US Duplex Bilateral Extracranial Arteries CLINICAL HISTORY: Syncope. TECHNIQUE: Real-time duplex ultrasound scan of the extracranial arteries integrating B-mode two-dimensional vascular structure, Doppler spectral analysis and color flow Doppler imaging. COMPARISON: No relevant prior studies available. FINDINGS: Right common carotid artery: The peak systolic velocity of the right common carotid artery is 69.8 cm/s. No occlusion or significant stenosis on color flow and spectral Doppler imaging. Right internal carotid artery: The peak systolic velocity of the right internal carotid artery is 85.3 cm/s. No occlusion or significant stenosis on color flow and spectral Doppler imaging. Right external carotid artery: Unremarkable. No occlusion or significant stenosis on color flow and spectral Doppler imaging. Right vertebral artery: Unremarkable. Antegrade flow. Right ICA/CCA ratio: The right ICA/CCA ratio is 1.3. Left common carotid artery: The peak systolic velocity of the left common carotid artery is 93.8 cm/s. No occlusion or significant stenosis on color flow and spectral Doppler imaging. Left internal carotid artery: The peak systolic velocity of the left internal carotid artery is 89.3 cm/s. No occlusion or significant stenosis on color flow and spectral Doppler imaging. Left external carotid artery: Unremarkable. No occlusion or significant stenosis on color flow and spectral Doppler imaging. Left vertebral artery: Unremarkable. Antegrade flow. Left ICA/CCA ratio: The left ICA/CCA ratio is 1.5. Lymph nodes: Unremarkable. No lymphadenopathy. CAROTID STENOSIS REFERENCE USING SRU CRITERIA: Mild - <50% stenosis. ICA PSV is less than 125 cm/second and plaque or intimal thickening is visible. Moderate - 50-69% stenosis. ICA PSV is 125 to 230 cm/second and plaque is visible. Severe - 70-94% stenosis. ICA PSV is more than 230 cm/second and visible plaque with lumen narrowing is seen. Near occlusion - 95-99% stenosis. ICA PSV is variable and significant plaque with luminal narrowing is seen. Occluded - 100% stenosis. No flow identified. IMPRESSION: No hemodynamically significant stenosis. Electronically signed by: Dori Lucia MD 06/14/23 23:37 PM ECG Additional Comments: EKG wtih NSR at 80bpm, incomplete RBBB PG Care Time/CCT Total # of Minutes Spent Total Time Spent with Patient: Total time spent is greater than 50% in coordination of care (as documented) at patient's floor/unit and/or counseling patient: Coding Level of Care Code 04858 INT INP/OBS CARE 2/55MIN Diagnoses Palpitation R00.2 Syncope R55 Seizure R56.9 Hyperlipidemia E78.5 Hypertension I10
[2023-06-14] MEDS ORDERED: ONDANSETRON INJ 2 MG/ML 2 ML VIAL IV PRN (21:52)
[2023-06-14] MEDS ORDERED: ACETAMINOPHEN 325 MG TAB PO PRN (21:52)
[2023-06-14 22:24] LABS: Phosphorus 3.9 mg/dl (2.5-4.9)
[2023-06-14] MEDS: SIMVASTATIN 20 MG TAB PO STA (22:30)
[2023-06-14] MEDS: ASPIRIN 81 MG ECTAB PO STA (22:30)
[2023-06-14] MEDS: PHENobarbitaL 30 MG TAB PO STA (22:30)
--- OUTSIDE RECORDS SUMMARY | 2023-06-14 23:17 | External Medical Summary | Summary of Care ---
Author Name Unknown Organization [facility] Address [address] [facility] [place] [address] Phone [phone] Care Team Providers Care Acidizer Helper Name Role Phone Rahul Tucker MD Primary Care Provide r Reason for Visit * Reason Onset Date Comments Fax 02/14/2023 Encounter Details Date Type Department Care Team Description 02/14/2023 Telephone Family Medicine [address] [phone] Rahul Tucker MD [address] [place], [place] [address] [id number] Fax Allergies Active Allergy Reactions Severity Noted Date Comments Azithromycin Hives 12/10/2010 documented as of this encounter (statuses as of 02/15/2023) Medications Medication Sig Dispensed Refills Start Date End Date Status SIMVASTATIN 20 MG PO TABS One pill by mouth once a day at bedtime 30 Tab 11 12/10/2010 Active ASPIRIN 81 MG PO CHEW One pill by mouth once a day with food 100 Tab 5 12/10/2010 Active PHENOBARBITAL 32.4 MG PO TABSIndications:Epi leptic seizure (HCC) 5 tabs daily 150 Tab 11 07/25/2012 Active Additional Information Patient taking differently: (No sig reported), Reported on 05/19/2016 latanoprost (XALATAN) 0.005 % ophthalmic solution Instill 1 Drop into both eyes. Each eye 11 04/21/2016 Active Brimonidine Tartrate 0.2 % Ophthalmic Solution (Alphagan) Instill 1 Drop into eye in the morning and 1 Drop at noon and 1 Drop before bedtime. 0 Active Tamsulosin HCl 0.4 MG Oral Capsule (Flomax) Take 1 Capsule by mouth in the morning. 0 06/21/2022 Active Lisinopril 5 MG Oral Tablet (Prinivil)Indicatio ns:HTN, goal below 140/90 Take 1 Tablet by mouth in the morning. 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 (statuses as of 02/15/2023) Resolved Problems Problem Noted Date Resolved Date Carpal tunnel syndrome 06/17/2014 8 Allergic rhinitis 06/17/2014 02/08/2018 Adjustment disorder with depressed mood 12/11/19 14 07/20/2017 Eczema 06/22/2012 07/20/2017 Epileptic seizure 12/10/2010 08/16/2018 documented as of this encounter (statuses as of 02/15/2023) Immunizations Name Administration Dates Next Due Pneumococcal Conjugate Vacc, 13 Valent (Prevnar) 06/17/2014 Pneumococcal Conjugate Vacci ne, 20-valent ([id number]) 02/15/2022 Pneumococcal Polysaccharide PPV23 (Pneumovax) 05/19/2016 SEASONAL INFLUENZA, PF, 6 M & Above, IM , (FLULAVAL or FLUZONE) 02/15/2022,02/28/2020,03/01/2019,02/08 Seasonal Influenza, Quadriva lent Hd (Fluzone Hd) 02/26/2021 Seasonal Influenza, Split, I IV3, No Preserve, Inj 02/13/2016,01/29/2014,01/23/2013 TDAP (age 10 and older)(Boostrix) 11/17/2011 Varicella Zoster Vaccine (Adult) 01/23/2013 documented as of this encounter Social History Tobacco Use Types Packs/Day Years Used Date Smoking Tobacco: Every Day Cigarettes 0.5 11 Cigars Smokeless Tobacco: Former Quit: 01/08/2015 Comments:Quit for 12 years Alcohol Use Standard Drinks/Week Comments Yes 0 (1 standard drink = 0.6 oz pur e alcohol) Food Insecurity Answer Date Recorded Within the past 12 months, y ou worried that your food would run out before you got money to buy more. Never true 07/29/2019 Within the past 12 months, t he food you bought just didn't last and you didn't have money to get more. Never true 07/29/2019 Sex Assigned at Date Recorded Not on file Job Start Date Occupation Industry Not on file Not on file Not on file documented as of this encounter Miscellaneous Notes * Telephone Encounter - SHAHID Ma - 02/15/2023 3:04 PM EDT Faxed to [phone] * Telephone Encounter - SHAHID Sheriff - 02/14/2023 1:10 PM EDT Caller requesting the following information to be faxed: Name/Company of caller: [facility] Information requested to be faxed: Last Office Visit Notes Fax number: [phone] Attention to Name/Company: Attn: [facility] Any additional information?: N/A documented in this encounter Plan of Treatment Upcoming Encounters Date Type Specialty Care Team Description 08/01/2023 Office Visit Family Medicine Rahul Tucker MD [address] [place] [address] [place] [address] Health Maintenance Due Date Last Done Comments DISCUSS TOBACCO CESSATION (REFER TO SMARTSET #[id number]) 1950 COVID-19 Vaccine (#1) 1950 Hepatitis C Screening 1967 Cologuard 1994 Fecal Occult Blood Test 1994 Sigmoidoscopy 1994 Zoster Vaccines (2 of 3) 04/01/2013 02/04/2013, 12/31 Depression Screening 12/09/2020 12/10/2019 DTaP,Tdap,and Td Vaccines (2 - Td or Tdap) 11/16/2021 11/17/2011 Influenza Vaccine (FLU shot) (#1) 2022 02/15/2022, 02/26/2021, 02/28/2020, Additional history exists Lipid Panel 02/27/2023 02/27/2018, 05/2016, 03/07/2016, Additional history exists GFR 07/27/2023 07/26/2022, 12/2020, 04/02/2019, Additional history exists Albumin/Creatinine Ratio 07/26/2025 07/26/2022, 05/2018 Colonoscopy 06/23/2030 06/23/2020, 06/03/2015 Colorectal Cancer Screening 06/23/2030 AAA Screening Completed 01/06/2021, 03/05/2012 Pneumococcal Vaccine: 65+ Years Completed 02/15/2022, 05/19/2016, 06/17/2014 GARDASIL-HPV IMMUNIZATION SERIES Aged Out No longer eligible based on patient's age to complete this topic Hepatitis B Aged Out No longer eligi ble based on patient's age to complete this topic MENINGOCOCCAL (MENACTRA/MENVEO) Aged Out No longer eligible based on patient's age to complete this topic documented as of this encounter Medical Devices Not on filedocumented as of this encounter Care Teams Acidizer Helper Relationship Specialty Start Date End Date Rahul Tucker MD [address] [place] [address] [place] [address] PCP - General Family Medicine 08/03/18 documented as of this encounter
--- NOTE | 2023-06-14 23:38 | Ultrasound Report ---
Exam(s): US CAROTID EXAM: US Duplex Bilateral Extracranial Arteries CLINICAL HISTORY: Syncope. TECHNIQUE: Real-time duplex ultrasound scan of the extracranial arteries integrating B-mode two-dimensional vascular structure, Doppler spectral analysis and color flow Doppler imaging. COMPARISON: No relevant prior studies available. FINDINGS: Right common carotid artery: The peak systolic velocity of the right common carotid artery is 69.8 cm/s. No occlusion or significant stenosis on color flow and spectral Doppler imaging. Right internal carotid artery: The peak systolic velocity of the right internal carotid artery is 85.3 cm/s. No occlusion or significant stenosis on color flow and spectral Doppler imaging. Right external carotid artery: Unremarkable. No occlusion or significant stenosis on color flow and spectral Doppler imaging. Right vertebral artery: Unremarkable. Antegrade flow. Right ICA/CCA ratio: The right ICA/CCA ratio is 1.3. Left common carotid artery: The peak systolic velocity of the left common carotid artery is 93.8 cm/s. No occlusion or significant stenosis on color flow and spectral Doppler imaging. Left internal carotid artery: The peak systolic velocity of the left internal carotid artery is 89.3 cm/s. No occlusion or significant stenosis on color flow and spectral Doppler imaging. Left external carotid artery: Unremarkable. No occlusion or significant stenosis on color flow and spectral Doppler imaging. Left vertebral artery: Unremarkable. Antegrade flow. Left ICA/CCA ratio: The left ICA/CCA ratio is 1.5. Lymph nodes: Unremarkable. No lymphadenopathy. CAROTID STENOSIS REFERENCE USING SRU CRITERIA: Mild - <50% stenosis. ICA PSV is less than 125 cm/second and plaque or intimal thickening is visible. Moderate - 50-69% stenosis. ICA PSV is 125 to 230 cm/second and plaque is visible. Severe - 70-94% stenosis. ICA PSV is more than 230 cm/second and visible plaque with lumen narrowing is seen. Near occlusion - 95-99% stenosis. ICA PSV is variable and significant plaque with luminal narrowing is seen. Occluded - 100% stenosis. No flow identified. IMPRESSION: No hemodynamically significant stenosis. Electronically signed by: Dori Lucia MD 06/14/23 23:37 PM
[2023-06-15 06:51] LABS: Hematocrit (blood only) 43.9 % (42.0-52.0); Hemoglobin 14.7 g/dl (14.0-18.0); Mean Corpuscular Hemoglobin 30.2 pg (25.0-34.0); Mean Corpuscular Hgb Conc 33.5 g/dL (32.0-36.0); Mean Corpuscular Volume 90.3 fL (80.0-100.0); Mean Platelet Volume 9.8 fL (9.4-12.4); Platelet Count 321 K/uL (130-400); RDW Coefficient of Variation 15.7 % (11.5-14.5); RDW Standard Deviation 51.8 fL (36.4-46.3); Red Blood Count 4.86 M/uL (4.70-6.10); White Blood Count 6.51 K/ul (4.8-10.8)
[2023-06-15 07:20] LABS: BUN Creatinine Ratio 14.8 (10-20); Calcium 8.4 mg/dl (8.6-10.3); Creatinine Clr Calc Pharmacy 99.3 ml/min; Est GFR (African American) 101.5 ml/min; Est GFR (Non-African American) 87.6 ml/min; Potassium 4.3 mmol/L (3.5-5.1)
--- NOTE | 2023-06-15 09:12 | Cardiology Consultation ---
Date of Consultation June 15, 2023 Assessment & Plan (1) Palpitation: (2) Syncope: (3) Hypertension: (4) PAC (premature atrial contraction): Plan ASSESSMENT/PLAN: 1. Syncope: One of the 2 episodes appeared orthostatic and the other 1 may have been as he was standing and reaching over his head. Orthostatic vital signs here demonstrated orthostatic blood pressure drop of more than 20 mmHg when going from seated to standing. Recommended thigh-high compression stockings, and increasing hydration. Also, recommend outpatient monitor to ensure no arrhythmia, significant bradycardia, or pauses. 2. Palpitations/PACs: Has had symptoms while hospitalized and no arrhythmia on monitor, but rather ectopy. We discussed PACs and PVCs. He was reassured. No specific treatment necessary. Symptoms mostly while in bed, specifically on the left side. 3. Hypertension: Blood pressure has been normotensive to mildly hypertensive. Would not aggressively manage given his orthostatic blood pressure and episode of syncope consistent with orthostatic hypotension. 4. Disposition: He already has an appointment scheduled on 06/30/2023 and can keep this appointment. Arranging outpatient 30-day event monitor. Patient care communicated with primary hospitalist, Dr. Reynaga. Thank you for allowing me to participate in the care of your patient. Please call for any other questions or concerns. Sincerely, Preet Jansen M.D. History of Present Illness Reason for Consultation: Palpitations and syncope Requesting Physician: Erma Reynaga MD Attending Physician: Erma Reynaga MD History of Present Illness Mr. Vera is a very pleasant 73-year-old gentleman with a history significant for hypertension, dyslipidemia, pulmonary embolism in 1985 following back surgery, and seizure disorder (most recent grand mal seizure was 1978). He was admitted on 06/14/2023 with palpitations and recent syncope. He has been experiencing palpitations since January 2023 when he had COVID infection. He did not require treatment with COVID but had chest tightness, palpitations, and lower blood pressure. Since then he has had intermittent palpitations described as a thumping sensation. He denies any racing heart rate. Symptoms have actually improved somewhat over the past 7 to 10 days. He notes palpitations mostly while laying down, especially on his left side. He has not noted any palpitations with exertion. Sometimes he will note palpitations while sitting, after completing a meal. He felt palpitations while hospitalized in his bed and was noted to have ectopy on telemetry but no arrhythmia. He experiences lightheadedness when he gets up from a seated position which is a newer issue. It typically last only a few seconds. Approximately 3 weeks ago, he got out of bed abruptly and went to use the restroom and had a syncopal event while walking to the bathroom. It was unwitnessed. He reports that he was quite hypotensive with systolic pressure of 48 mmHg afterwards. When he woke up however, he felt well. His second episode of syncope was on 06/12/2023. He was up and down stairs and denied chest pain or shortness of breath or lightheadedness. But then he was using a hand drill above his head, felt lightheaded, and lost consciousness. This was also unwitnessed. When he woke up he felt disoriented and denies urinary or fecal incontinence. He does not believe that he had a seizure. He typically drinks 3 portions of 24 ounces of water per day. He also drinks 1 or 2 cups of tea. He is active but does not participate in dedicated exercise. He denies exertional chest pain, shortness of breath, edema, or bleeding such as melena, hematochezia, or hematuria. Review of systems: As above. Review of systems otherwise negative/unremarkable. Family history: No known premature CAD. Father had CABG near the age of 80. Social history: Has smoked intermittently throughout his life, up to 1 pack/day at 1 time, currently 6 to 7 cigarettes/day. Consumes 4-8 beers per week. Does not drink on a daily basis. Lives at home with his , Bina. He was unaccompanied. Allergies Allergy/AdvReac Type Severity Reaction Status Date / Time dorzolamide Allergy Severe eyes Verified 06/14/23 20:59 swollen azithromycin Allergy Intermediate Rash Verified 06/14/23 21:04 Home Medications Medication Instructions Recorded Confirmed Type latanoprost 0.005 % eye drops 1 drp OPB .DAILY IN AFTERNOON 08/01/18 06/14/23 History multivitamin 1 tab PO QAM 08/01/18 06/14/23 History phenobarbital 32.4 mg tablet 6 tab PO QPM 08/01/18 06/14/23 History simvastatin 40 mg tablet 20 mg PO PM 08/01/18 06/14/23 History cholecalciferol (vitamin D3) 50 50 mcg PO QAM 12/02/21 06/14/23 History mcg (2,000 unit) tablet (Vitamin D3) cyanocobalamin (vitamin B-12) 500 500 mcg PO QAM 12/02/21 06/14/23 History mcg tablet zinc 50 mg tablet 50 mg PO Q OTHER DAY 12/02/21 06/14/23 History aspirin 81 mg tablet,delayed 81 mg PO QPM 06/14/23 06/14/23 History release tamsulosin 0.4 mg capsule 0.4 mg PO QPM 06/14/23 06/14/23 History Patient History Medical History Bulging disc Degenerative disc disease Osteoarthritis GERD (gastroesophageal reflux disease) Glaucoma Restless leg syndrome Seizure Grand mal (most recent 1978) Migraine Pulmonary embolism 1985 post-op (back surgery) Hypertension Hyperlipidemia Surgical History History of sinus surgery Endoscopic sinus surgery (08/09/18): LMA#5, atraumatic at [facility] [place]. No issues noted per post-op anesthesia progress note. H/O eye surgery Detached retina repairs H/O sinus surgery History of repair of rotator cuff R/L History of carpal tunnel release R/L History of discectomy Lumbar History of colonoscopy Dr. Richards with polypectomy History of tooth extraction History of cataract surgery R/L Family History Father Family hx of colon cancer Cancer Colorectal cancer Heart disease Grandfather (Maternal) Family hx of colon cancer Grandfather Colorectal cancer Social History Smoking Status: Current every day smoker Tobacco Type: Cigarettes Cigarettes Per Day: 7; Second Hand Exposure: Yes; Do You Dip or Chew Tobacco: No; Tobacco Cessation Education Requested by Patient: No Hx Alcohol Use: Yes Alcohol type: beer Hx Substance Use: No Preferred Language: [place] Communication Ability: Effective Rrt Required: No Beliefs That Will Affect Care: None marital status: Current Living Situation: Spouse Other Information That Helps Us Care for You: No Feels Safe at Home: Yes Safety Concerns: Feels Safe At This Time Diet: regular Assistive Devices: None Physical Exam Physical Exam: Gen.: No acute distress. Alert and oriented. HEENT: Anicteric sclera. Neck: No JVD. No bruits. Normal carotid upstrokes bilaterally. Cardiac: No ventricular heave. Regular. Normal S1-S2. No murmurs, rubs, or gallops. Pulmonary: Clear to auscultation bilaterally without wheezes, rales, or rhonchi. Abdomen: Soft, nontender, nondistended, with normoactive bowel sounds. No bruits noted. Extremities: 2+ radial pulses bilaterally. 2+ posterior tibialis pulses bilaterally. No edema or cyanosis. Psychiatric: Affect appears appropriate. Results & Data Vital Signs (Past 12 Hours) Vital Signs Temp Pulse Pulse Resp BP BP Pulse Ox 06/15/23 07:55 36.5 C 77 18 144/75 H 93 06/15/23 07:00 72 06/15/23 03:00 36.7 C 72 18 155/76 H 94 06/14/23 23:47 67 06/14/23 23:14 06/14/23 23:14 36.5 C 71 20 157/55 H 94 06/14/23 21:52 36.5 C 71 20 157/55 H 94 06/14/23 21:30 84 O2 Del Method 06/15/23 07:55 Room Air 06/15/23 07:00 06/15/23 03:00 Room Air 06/14/23 23:47 06/14/23 23:14 Room Air 06/14/23 23:14 Room Air 06/14/23 21:52 Room Air 06/14/23 21:30 Orthostatic vital signs were completed on 06/15/2023. Blood pressure was orthostatic. Laboratory Results Laboratory Results - last 24 hr 06/14/23 06/15/23 13:30 06:30 WBC 7.44 6.51 RBC 5.41 4.86 Hgb 16.2 14.7 Hct 49.6 43.9 MCV 91.7 90.3 MCH 29.9 30.2 MCHC 32.7 33.5 RDW Std Deviation 53.1 H 51.8 H RDW Coeff of Vince 15.8 H 15.7 H Plt Count 354 321 MPV 9.6 9.8 Immature Gran % (Auto) 0.3 Neut % (Auto) 61.4 Lymph % (Auto) 27.0 [place] % (Auto) 8.9 Eos % (Auto) 1.6 Baso % (Auto) 0.8 Neut # (Auto) 4.57 Lymph # (Auto) 2.01 [place] # (Auto) 0.66 H Eos # (Auto) 0.12 Baso # (Auto) 0.06 Immature Gran # (Auto) 0.02 PT 12.2 H INR 1.1 APTT 26 PTT Ratio 0.9 D-Dimer 1800 H* Sodium 136 139 Potassium 4.2 4.3 Chloride 104 109 H Carbon Dioxide 27 27 Anion Gap 5 3 BUN 16 12 Creatinine 0.78 0.81 Est Cr Clr Drug Dosing 102.7 99.3 Est GFR ( Amer) 103.1 101.5 Est GFR (Non-Af Amer) 88.9 87.6 BUN/Creatinine Ratio 20.5 H 14.8 Glucose 81 81 Calcium 9.0 8.4 L Phosphorus 3.9 Magnesium 1.7 Total Bilirubin 0.3 AST 21 ALT 15 Alkaline Phosphatase 83 Troponin I High Sens 7.5 Total Protein 6.9 Albumin 3.1 L Globulin 3.8 Albumin/Globulin Ratio 0.8 L TSH 3.441 Phenobarbital 12.1 Diagnostic Findings Chart reviewed. History and physical report reviewed. ECG personally reviewed 06/14/2023 at 1328: Sinus rhythm 80 bpm. Poor R wave progression. Incomplete right bundle branch block. Labs reviewed and notable for normal blood counts, elevated D-dimer, normal renal function, normal potassium, normal TSH, normal high-sensitivity troponin. CTA chest 06/14/2023 report reviewed: No acute abnormality. No PE. No pericardial effusion. Head CT 06/14/2023: No acute intracranial hemorrhage or stroke. Carotid Doppler 06/14/2023: No hemodynamically significant stenosis. Echo 06/15/2023: Normal LV size, wall motion, systolic function. EF 60 to 65%. No regional wall motion abnormalities. Telemetry personally reviewed: Sinus rhythm. No arrhythmias. PACs. Medications Administered Current Inpatient Medications Acetaminophen (Acetaminophen 325 Mg Tab) 650 mg PO Q4H PRN PRN Reason: pain/fever Stop: 03/15/24 21:51 Aspirin (Aspirin 81 Mg Ectab) 81 mg PO QPM MICHELLE Stop: 07/15/23 20:59 Latanoprost (Latanoprost 0.005% Op Soln 2.5 Ml Btl) 1 drops OPB Q24H MICHELLE Stop: 07/15/23 14:59 Ondansetron HCl (Ondansetron Inj 2 Mg/Ml 2 Ml Vial) 4 mg IV Q6H PRN PRN Reason: Nausea Stop: 07/14/23 21:51 Phenobarbital (Phenobarbital 30 Mg Tab) 180 mg PO QPM MICHELLE Stop: 07/15/23 20:59 Simvastatin (Simvastatin 20 Mg Tab) 20 mg PO PM MICHELLE Stop: 07/15/23 20:59 Tamsulosin HCl (Tamsulosin Hcl 0.4 Mg Cap) 0.4 mg PO QPM MICHELLE Stop: 07/15/23 20:59 PG Care Time/CCT Total # of Minutes Spent Total Time Spent with Patient: Total time spent is greater than 50% in coordination of care (as documented) at patient's floor/unit and/or counseling patient: Coding Level of Care Code 24338 INT INP/OBS CARE 2/55MIN Diagnoses Palpitation R00.2 Syncope R55 Hypertension I10 PAC (premature atrial contraction) I49.1
--- NOTE | 2023-06-15 09:20 | XCELERA ---
[id number]
--- NOTE | 2023-06-15 11:19 | Hospitalist Progress Note ---
Date of Service June 15, 2023 Assessment & Plan (1) Palpitation: Plan: Patient with ongoing palpitations for the last 3+ months - started after having Covid. Electroltyes WNL as is TSH. Troponin is unremarkable. Ectopy noted on monitor. He said episodes of palpitation have gotten worse over the past couple of weeks Etiology is uncertain 2D echo done ejection fraction 55 to 60%, no regional wall abnormalities -Observation to medical with telemetry (2) Syncope: Plan: Possibly secondary to orthostatic BP changes, ?POTS post-Covid -Monitor BP -Check orthostatic VS -PT/OT evaluation -Consider tilt table (3) Seizure: Plan: Chronic. Stable. Last seizure in 1978 -Continue Phenobarbital at home dose -Check level (4) Fall: Plan: Patient states that he has fallen twice, probably following a syncopal episode CT scan of the head did not show any acute pathology (5) Hyperlipidemia: Plan: Chronic. Stable -Continue Simvastatin (6) Hypertension: Plan Hopefully discharge in next 24 hours Admission and Anticipated Discharge Date Admission Date: June 14, 2023 Subjective Patient seen and examined, still complains of palpitations, but denies chest pain or shortness of breath or leg swelling. Review of Systems Review of Systems: All systems reviewed are negative, apart from the ones contained in the history. Physical Exam Physical Exam: The patient is awake, alert and oriented 3, well developed and well nourished, normocephalic and atraumatic, lying in bed and in no acute distress. HEENT--PERRL, EOMI, mucous membranes and oropharynx mildly dry Neck--supple. No JVD. No bruits. Thyroid normal, trachea midline, no adenopathy. Heart--normal S1 and S2. No murmurs, rubs or gallops. Lungs--clear bilaterally, no respiratory distress, no accessory muscle use. Abdomen--normal bowel sounds and soft. Mild epigastric and left sided abdominal pain Extremities--no cyanosis or clubbing. No edema. Dermatologic--normal skin turgor, normal color, no abnormal lymph nodes, no rash. Neurologic--cranial nerves II through XII grossly intact. Rheumatologic--normal range of motion. Psychiatric--normal affect. Results & Data Results & Data Vital Signs (Past 12 Hours) Vital Signs Temp Pulse Pulse Resp BP BP Pulse Ox 06/15/23 11:10 97.7 F 75 18 135/76 96 06/15/23 07:55 97.7 F 77 18 144/75 H 93 06/15/23 07:00 72 06/15/23 03:00 98.1 F 72 18 155/76 H 94 06/14/23 23:47 67 O2 Del Method 06/15/23 11:10 Room Air 06/15/23 07:55 Room Air 06/15/23 07:00 06/15/23 03:00 Room Air 06/14/23 23:47 PG Care Time/CCT Total # of Minutes Spent Total Time Spent with Patient: Total time spent is greater than 50% in coordination of care (as documented) at patient's floor/unit and/or counseling patient: Coding Level of Care Code 71663 SUB INP/OBS CARE 2/35MIN Diagnoses Palpitation R00.2 Syncope R55 Seizure R56.9 Fall W19.XXXA Hyperlipidemia E78.5 Hypertension I10 Time Spent (min) 35
[2023-06-15] MEDS: LATANOPROST 0.005% OP SOLN 2.5 ML BTL OPB SCH (15:19)
[2023-06-15] MEDS: TAMSULOSIN HCL 0.4 MG CAP PO SCH (20:59)
[2023-06-15] MEDS: SIMVASTATIN 20 MG TAB PO SCH (20:59)
[2023-06-15] MEDS: ASPIRIN 81 MG ECTAB PO SCH (20:59)
[2023-06-15] MEDS: PHENobarbitaL 30 MG TAB PO SCH (21:00)
--- NOTE | 2023-06-15 21:05 | Electrocardiogram Report ---
Test Reason : Blood Pressure : / mmHG Vent. Rate : 080 BPM Atrial Rate : 080 BPM P-R Int : 158 ms QRS Dur : 094 ms QT Int : 382 ms P-R-T Axes : 042 -55 048 degrees QTc Int : 440 ms Poor data quality, interpretation may be adversely affected Normal sinus rhythm Incomplete right bundle branch block Left anterior fascicular block Minimal voltage criteria for LVH, may be normal variant ( R in aVL ) Abnormal ECG When compared with ECG of 07-DEC-2010 11:57, Left anterior fascicular block is now Present Confirmed by Blas Jansen ([id number]) on 06/15/2023 9:05:49 PM Referred By: Confirmed By:Blas Jansen
--- NOTE | 2023-06-16 10:36 | Discharge Summary ---
Date of Service June 16, 2023 Admission HPI Per Admitting Provider Dre Vera is a pleasant 73yo male with history of HTN, HLP, prior PE and Seizure disorder presenting from home with palpitations. Patient reports his symptoms all started after having Covid in January. He has been having palpitations daily, multiple times per day. The episodes last several minutes to hours. He does not think that he has associated chest pain or shortness of breath with the palpitations. He has had ongoing lightheadedness, XIE as well as multiple episodes of syncope but cannot clearly state that these episodes are associated with his palpitations. He has had brain fog intermittently as well and occasional diarrhea. Patient has had three syncopal episodes in the last two weeks. His first episode he just got out of bed and walked to the bathroom. He became dizzy and passed out at the toilet. He had another syncopal episode today - he was rushing around the house and going upstairs to get tools when he became dizzy and passed out. This event was witnessed by his - no reported seizure activity or incontinence. He was confused when he woke up and had no recollection of passing out. He reports occasional dizziness with positional changes. No cardiac disease or CHF. No arrhythmia. Patient had an event monitor 20 years ago for palpitations with unremarkable findings. Orthostatic VS NEGATIVE in the ER Principal Diagnosis Palpitations, orthostatic hypotension Discharge Exam The patient is awake, alert and oriented 3, well developed and well nourished, normocephalic and atraumatic, lying in bed and in no acute distress. HEENT--PERRL, EOMI, mucous membranes and oropharynx mildly dry Neck--supple. No JVD. No bruits. Thyroid normal, trachea midline, no adenopathy. Heart--normal S1 and S2. No murmurs, rubs or gallops. Lungs--clear bilaterally, no respiratory distress, no accessory muscle use. Abdomen--normal bowel sounds and soft. Mild epigastric and left sided abdominal pain Extremities--no cyanosis or clubbing. No edema. Dermatologic--normal skin turgor, normal color, no abnormal lymph nodes, no rash. Neurologic--cranial nerves II through XII grossly intact. Rheumatologic--normal range of motion. Psychiatric--normal affect. Discharge Data Allergies Allergy/AdvReac Type Severity Reaction Status Date / Time dorzolamide Allergy Severe eyes Verified 06/14/23 20:59 swollen azithromycin Allergy Intermediate Rash Verified 06/14/23 21:04 Consultations 06/14/23 20:33 ED Decision to Admit Stat 06/15/23 07:32 Consult Cardiology Routine Ordered Studies 06/14/23 13:07 CT head/brain wo con Stat 06/14/23 15:56 CT angio chest PE protocol Stat 06/14/23 21:52 Carotid duplex [US carotid doppler BI] Urgent Hospital Course (1) Palpitation: Patient with ongoing palpitations for the last 3+ months - started after having Covid. Electroltyes WNL as is TSH. Troponin is unremarkable. Ectopy noted on monitor. He said episodes of palpitation have gotten worse over the past couple of weeks Etiology is uncertain 2D echo done ejection fraction 55 to 60%, no regional wall abnormalities -Observation to medical with telemetry -Discharge with 30-day Holter monitor Follow-up with cardiology- (2) Syncope: Secondary to orthostatic blood pressure changes -Monitor BP -Check orthostatic VS -PT/OT evaluation -Consider tilt table outpatient -Encourage compression stockings, -Also encourage getting up in stages (3) Seizure: Chronic. Stable. Last seizure in 1978 -Continue Phenobarbital at home dose -Check level (4) Fall: Patient states that he has fallen twice, probably following a syncopal episode CT scan of the head did not show any acute pathology (5) Hyperlipidemia: Chronic. Stable -Continue Simvastatin (6) Hypertension: Plan Discharge home Total Time Total Time Spent Total Time Spent (In Minutes): 35 Discharge Plan Discharge Items Patient Disposition: Home - Self-Care Reason For Visit: SYNCOPE, PALPITATIONS Discharge Diagnosis: syncope, orthostatic hypotension Activity: Resume your previous activity Non-emergency contact: Primary Care Provider and Director Of Patient Care Call non-emergency contact if: you have any medication questions Follow-up/Referrals: Krystian Joel [Primary Care Provider] - (PLEASE CALL YOUR PRIMARY CARE PROVIDER TO SCHEDULE A HOSPITAL FOLLOW-UP DISCHARGE APPOINTMENT WITHIN 7-10 DAYS) Diet: Regular Addtl Attending Provider Instructions: Please, as discussed, get up from a lying position in stages, first sit up for a few seconds, before standing up to go. Wear your compression stockings. 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 for your 30 day heart monitor Pending Studies at Discharge: No Stand-Alone Forms: My [facility], Smoking Cessation Medications and DC Order Prescriptions: Continued latanoprost 0.005 % Drops 1 drp OPB .DAILY IN AFTERNOON simvastatin 40 mg Tablet 20 mg PO PM phenobarbital 32.4 mg Tablet 6 tab PO QPM multivitamin Tablet 1 tab PO QAM cyanocobalamin (vitamin B-12) 500 mcg Tablet 500 mcg PO QAM zinc 50 mg Tablet 50 mg PO Q OTHER DAY cholecalciferol (vitamin D3) [Vitamin D3] 50 mcg (2,000 unit) Tablet 50 mcg PO QAM aspirin 81 mg tablet,delayed release (DR/EC) 81 mg PO QPM tamsulosin 0.4 mg Capsule 0.4 mg PO QPM Discharge Orders: Discharge Order (Routine); Ordered 06/16/23 Ordered By: Erma Reynaga Admission Data Admit Date/Time: 06/14/23 20:23 Attending Provider: Erma Reynaga Admit Provider: Libby Calderon Primary Care Provider: Krystian Joel Other Providers: Libby Calderon; Blas Jansen Coding Level of Care Code 64720 INP/OBS DISCH >30 MIN Diagnoses Palpitation R00.2 Syncope R55 Seizure R56.9 Fall W19.XXXA Hyperlipidemia E78.5 Hypertension I10 Time Spent (min) 35
== END 2023-06-16 13:12 | disposition home or self-care (01) ==
LOC: SUATTDRO → ED 12:59 → 2N 12:59 → SUATTDRO 20:23 → 2N 21:16

== ENCOUNTER 2023-11-19 11:50 | Observation (INO) ==
--- NOTE | 2023-11-19 12:08 | Emergency Department Note ---
Impression & Plan Cirrhosis, Abdominal pain, Abdominal ascites, Hypoalbuminemia ED Provider Note NAME: BETY CUI AGE: 73 SEX: M : 1950 ARRIVES VIA: Walk-In INFORMANT: Patient ED PROVIDER(S): Gurjit Izaguirre MD CHIEF COMPLAINT: Abdominal pain. PLAN: Disposition: Admit MEDICAL DECISION MAKING: The patient is a pleasant 73-year-old gentleman with a past medical history of hypertension, hyperlipidemia, GERD, migraines, seizure disorder who presents to the emergency department via walk-in accompanied by his for evaluation of acute onset mid abdominal pain that began around 1030 this morning and lasted for approximately an hour and a half before resolving spontaneously. On arrival emergency department he reports he has no active pain. He reports feeling some nausea but denies any vomiting. He reports he did have a bowel movement this morning which was small in volume but formed. He denies any fevers, chills, cough, congestion. He denies any burning with urination. Patient describes recent history of having edema of his legs which occurs in the setting of his report of having low blood pressure and near fainting episodes involving after having COVID-19 in January 2023. He had attributed these episodes to being on Flomax and understood that it was recommended that he increase his salt and fluid intake which she had subsequently then reports that his leg edema had developed. He reports recently started on Lasix. He had an outpatient echo performed through his primary care doctor in [facility] but he is unaware of the results. He did have an unremarkable echo at this facility in June of this year. On evaluation the patient is no acute distress, afebrile with stable vital signs. He exhibits dry mucous membranes but does have 2+ bilateral lower extremity pitting edema. He has mild anasarca. Abdomen is nontender/nondistended. EKG without overt acute ischemia. WBC within normal limits. H/H within normal limits. Platelets mildly elevated at 425, nonspecific. INR is slightly above normal at 1.3. Chemistry without metabolic acidosis. Electrolytes unremarkable. Alk phos is 158, mildly above normal and LFTs otherwise normal including normal total bilirubin. High- sensitivity troponin 18.1, within normal limits. Albumin continues to be low at 2.3 similar to a week or so ago and approximate to June when it was 3.1. Lipase is 18. CT of the abdomen pelvis demonstrates evidence of cirrhotic liver with small amount of ascites and moderate body wall edema and trace bilateral pleural effusions. Small amount of pericholecystic fluid is noted without gallbladder wall thickening likely related to diffuse edematous state. A few borderline fluid-filled dilated loops of bowel. Within the left side of the abdomen measures 3 cm in diameter without definitive transition point and may be consistent with mild ileus or low-grade partial small bowel obstruction (consider less likely given resolution of patient's symptoms). Additional note of indeterminate 1.4 cm lesion within the right interpolar kidney is described. Findings reviewed with the patient and his at the bedside. Patient is unaware of any previous diagnosis of cirrhosis. Review of the patient's CTA chest from June of this year does not show evidence of ascites in upper abdomen. Patient does report regular alcohol use but confidently describes his use to be limited to less than 5 beers a week which she usually consumes on Monday nights at the doctors hospital. They agree with plan for admission for further evaluation and management. Case was discussed with Dr. Kohli [facility] hospitalist, who will evaluate the patient for admission. Triage Nursing notes reviewed and agree them. Prior/external medical records reviewed Vital Signs: reviewed Differential diagnosis: Gastroenteritis, food borne illness, infections, appendicitis, diverticulitis, inflammatory bowel disease, obstruction, GI bleed, biliary pathology, volvulus, as well as other pathologies. ER treatment provided: See below. Diagnostics interpreted by me: ECG: Normal sinus rhythm, 77 bpm, no ectopy, no overt ST elevation or depression, left anterior fascicular block, QTc 457, QRS 88. Cardiac Monitoring: An order for continuous cardiac monitoring was placed and demonstrated Normal sinus rhythm, 77 bpm, no ectopy. Laboratory studies: See below Imaging studies: See below Consultation(s): Case was discussed with CHARISSE Samuels hospitalist, who will evaluate the patient for admission. HPI: The patient is a pleasant 73-year-old gentleman with a past medical history of hypertension, hyperlipidemia, GERD, migraines, seizure disorder who presents to the emergency department via walk-in accompanied by his for evaluation of acute onset mid abdominal pain that began around 1030 this morning and lasted for approximately an hour and a half before resolving spontaneously. On arrival emergency department he reports he has no active pain. He reports feeling some nausea but denies any vomiting. He reports he did have a bowel movement this morning which was small in volume but formed. He denies any fevers, chills, cough, congestion. He denies any burning with urination. Patient describes recent history of having edema of his legs which occurs in the setting of his report of having low blood pressure and near fainting episodes involving after having COVID-19 in January 2023. He had attributed these episodes to being on Flomax and understood that it was recommended that he increase his salt and fluid intake which she had subsequently then reports that his leg edema had developed. He reports recently started on Lasix. He had an outpatient echo performed through his primary care doctor in [facility] but he is unaware of the results. He did have an unremarkable echo at this facility in June of this year. ROS: See above HPI for pertinent positives & negatives. A total of 10 systems reviewed and were otherwise negative. VITALS:See Below PHYSICAL EXAMINATION: GENERAL: Awake, alert, in no distress HENT: Normocephalic, atraumatic. Oropharynx with dry mucous membranes and otherwise unremarkable. EYES: Normal conjunctiva. Sclera non-icteric. NECK: Supple. No nuchal rigidity. FROM. No JVD. RESPIRATORY: Clear to auscultation. CARDIAC: Regular rate, normal rhythm. Extremities warm and well perfused. Pulses equal. ABDOMEN: Mild anasarca. Nontender/nondistended. No rebound or guarding. MUSCULOSKELETAL: Chest examination reveals no tenderness. The back is symmetrical on inspection without obvious abnormality. There is no CVA tenderness to palpation. No joint edema. LOWER EXTREMITIES: Calves are equal size bilaterally and non-tender. 2+ BLE pitting edema. No discoloration. NEURO: Normal sensorium. No sensory or motor deficits noted. SKIN: No rash or jaundice noted. Gurjit Izaguirre MD Past Med/Surg History Problem List (Updated 11/19/23 @ 17:07 by Gurjit Izaguirre MD) Hypoalbuminemia (Acute) Abdominal ascites (Acute) Abdominal pain (Acute) Cirrhosis (Acute) Weakness (Acute) Edema (Acute) Shortness of breath (Acute) PVCs (premature ventricular contractions) PAC (premature atrial contraction) Fall Palpitation (Acute) Syncope (Acute) Rectal bleeding Rotator cuff arthropathy of right shoulder Impacted cerumen, right ear Sensorineural hearing loss (SNHL) of left ear with restricted hearing of right ear Perforation of tympanic membrane of left ear due to otitis media Allergic rhinitis Otitis externa in mycoses Abdominal pain Impacted cerumen of both ears Chronic sinusitis Encounter for pre-operative examination Orthostatic hypotension it's his standing blood pressure he has trouble with Seizure Grand mal (most recent 1978) GERD (gastroesophageal reflux disease) no current meds Hyperlipidemia Hypertension hx-no current meds; "has low blood pressure now" Migraine Medical History History of palpitations , hospitalized @[facility], "due to orthostatic hypotension"; f/u dr. garcia, [place] BPH (benign prostatic hyperplasia) History of COVID-19 03/2023, not hosp; still has low blood pressure now w/orthostatice hypotension Bulging disc Degenerative disc disease Osteoarthritis Glaucoma Restless leg syndrome Pulmonary embolism 1985 post-op (back surgery) Surgical History History of reverse total replacement of right shoulder joint right History of sinus surgery Endoscopic sinus surgery (08/09/18): LMA#5, atraumatic at [facility]. No issues noted per post-op anesthesia progress note. H/O eye surgery Detached retina repairs-bilateral H/O sinus surgery History of repair of rotator cuff R/L History of carpal tunnel release R/L History of discectomy Lumbar History of colonoscopy Dr. Richards with polypectomy History of tooth extraction History of cataract surgery R/L Family History Father Family hx of colon cancer Cancer Colorectal cancer Heart disease Grandfather (Maternal) Family hx of colon cancer Grandfather Colorectal cancer Social History Smoking Status: Current every day smoker Tobacco Type: Cigarettes Cigarettes Per Day: 10; Second Hand Exposure: Yes (hx growing up); Do You Dip or Chew Tobacco: No; Hx Alcohol Use: Yes Alcohol type: beer Hx Substance Use: No Preferred Language: Romanian Communication Ability: Effective Front Desk Person Required: No Beliefs That Will Affect Care: None marital status: Current Living Situation: Spouse Feels Safe at Home: Yes Diet: regular Assistive Devices: Glasses Allergies Allergies Allergy/AdvReac Type Severity Reaction Status Date / Time dorzolamide Allergy Severe eyes Verified 11/19/23 15:51 swollen azithromycin Allergy Intermediate Rash Verified 11/19/23 15:51 Home Meds Home Medications Medication Instructions Recorded Confirmed phenobarbital 32.4 mg tablet 6 tab PO QPM 08/01/18 11/19/23 simvastatin 40 mg tablet 20 mg PO QPM 08/01/18 11/19/23 aspirin 81 mg tablet,delayed 81 mg PO QPM 06/14/23 11/19/23 release furosemide 20 mg tablet 20 mg PO QAM 11/19/23 11/19/23 potassium chloride 10 mEq 10 meq PO Q OTHER DAY 11/19/23 11/19/23 tablet,extended release Results & Data (ED) Vital Signs Vital Signs - 24 hr 11/19/23 11:55 11/19/23 12:11 11/19/23 12:12 Temperature 36.9 C Temperature Source Oral Pulse Rate 77 Pulse Rate [Apical] 73 Pulse Strength [Apical] Normal Respiratory Rate 12 15 Respiratory Effort / Characteristics Non-Labored Spontaneous Non-Labored Spontaneous Respiratory Depth Normal Normal Respiratory Pattern Blood Pressure 128/79 Blood Pressure [Left Arm] 159/76 H Blood Pressure Mean 95 Blood Pressure Mean [Left Arm] 103 Pulse Oximetry 98 94 94 Oxygen Delivery Method Room Air Room Air Room Air Sepsis Recent Fever Within 48 Hours No Sepsis New/Unexplained Change in Mental Status No Sepsis Action Taken by Nursing No Action Required 11/19/23 12:19 11/19/23 12:54 11/19/23 14:03 Temperature Temperature Source Pulse Rate 73 Pulse Rate [Apical] 66 72 Pulse Strength [Apical] Respiratory Rate 18 19 Respiratory Effort / Characteristics Non-Labored Respiratory Depth Normal Respiratory Pattern Regular Blood Pressure Blood Pressure [Left Arm] 155/80 H 153/78 H Blood Pressure Mean Blood Pressure Mean [Left Arm] 105 103 Pulse Oximetry 94 95 Oxygen Delivery Method Room Air Sepsis Recent Fever Within 48 Hours Sepsis New/Unexplained Change in Mental Status Sepsis Action Taken by Nursing Laboratory Data Attestation: I reviewed the patient's lab results. 11/19/23 12:09 11/19/23 12:09 Lab Results 11/19/23 Range/Units 12:09 WBC 8.70 (4.8-10.8) K/ul RBC 5.26 (4.70-6.10) M/uL Hgb 15.9 (14.0-18.0) g/dl Hct 47.0 (42.0-52.0) % MCV 89.4 (80.0-100.0) fL MCH 30.2 (25.0-34.0) pg MCHC 33.8 (32.0-36.0) g/dL RDW Std Deviation 54.0 H (36.4-46.3) fL RDW Coeff of Vince 16.6 H (11.5-14.5) % Plt Count 425 H (130-400) K/uL MPV 9.9 (9.4-12.4) fL Immature Gran % (Auto) 0.2 % Neut % (Auto) 73.1 % Lymph % (Auto) 17.6 % Rogers % (Auto) 7.1 % Eos % (Auto) 1.3 % Baso % (Auto) 0.7 % Neut # (Auto) 6.36 (1.40-6.50) K/uL Lymph # (Auto) 1.53 (1.20-3.40) K/uL Rogers # (Auto) 0.62 H (0.11-0.59) K/uL Eos # (Auto) 0.11 (0.00-0.50) K/uL Baso # (Auto) 0.06 (0.00-0.20) K/uL Immature Gran # (Auto) 0.02 (0.01-0.20) K/uL PT 13.5 H (9.0-12.0) Seconds INR 1.3 H (0.9-1.1) Sodium 139 (136-145) mmol/L Potassium 4.4 (3.5-5.1) mmol/L Chloride 102 (98-107) mmol/L Carbon Dioxide 31 (21-32) mmol/L Anion Gap 6 (3-11) BUN 15 (6-23) mg/dl Creatinine 0.86 (0.6-1.4) mg/dl Est Cr Clr Drug Dosing 91.9 ml/min Est GFR ( Amer) 99.0 ml/min Est GFR (Non-Af Amer) 85.4 ml/min BUN/Creatinine Ratio 17.4 (10-20) Glucose 92 (70-99(Fasting)) mg/dl Calcium 8.6 (8.6-10.3) mg/dl Total Bilirubin 0.3 (0.2-1.0) mg/dl Direct Bilirubin 0.0 (0-0.2) mg/dl AST 29 (13-39) U/L ALT 15 (7-52) U/L Alkaline Phosphatase 158 H (34-104) U/L Troponin I High Sens 18.1 (0-20) pg/ml Total Protein 5.8 L (6.0-8.3) gm/dl Albumin 2.3 L (3.4-5.0) gm/dl Globulin 3.5 (2.5-4.0) gm/dl Albumin/Globulin Ratio 0.7 L (0.9-2) Lipase 18 (11-82) U/L Administered Medications Discontinued Medications Sodium Chloride (Nss) 1,000 mls @ 999 mls/hr IV .Q1H1M ONE Stop: 11/19/23 12:59 Last Infusion: 11/19/23 14:22 Dose: Infused Documented By: Admin: 11/19/23 12:35 Dose: 999 mls/hr Documented By: CLIF Ioversol (Optiray 320 100ml) 94 ml IV ONCE ONE Stop: 11/19/23 13:52 Last Admin: 11/19/23 13:52 Dose: 94 ml Documented By: HENRRY Imaging Data Radiologist's Impression: Abdomen/Pelvis CT 11/19/23 13:[address] WITH IV CONTRAST CT DOSE: 1484.46 mGy.cm HISTORY: mid abdominal pain TECHNIQUE: Multiaxial CT images of the abdomen and pelvis were performed following the use of intravenous contrast. A dose lowering technique was utilized adhering to the principles of ALARA. COMPARISON STUDY: None. FINDINGS: There are trace bilateral pleural effusions. Otherwise, the lung bases are clear. Moderate body wall edema. Nodular contour to the liver consistent with cirrhosis. No hepatic or splenic masses. The spleen is normal in size. The adrenal glands and pancreas unremarkable. Mild pericholecystic fluid. No gallbladder wall thickening. The main portal vein is patent. Normal caliber abdominal aorta. No retroperitoneal lymphadenopathy. Multiple bilateral renal hypodense lesions. These favor cysts. Some of these are too small to characterize. There is also an indeterminate exophytic 1.4 cm lesion within the interpolar right kidney on image 126. This could represent a hyperdense cyst or possibly a solid renal mass. No hydronephrosis. The bladder is unremarkable. Small amount of ascites is noted. No bowel wall thickening. A few colonic diverticula. No evidence for acute diverticulitis. Mild mesenteric edema is noted. Normal appendix. A few fluid-filled borderline dilated loops of small bowel within the left side of the abdomen measuring up to 3 cm in diameter. No definite transition point identified. This could represent a mild ileus or low- grade partial small bowel obstruction. IMPRESSION: 1. Cirrhotic liver with a small amount of ascites. 2. Moderate body wall edema and trace bilateral pleural effusions. 3. Small amount of pericholecystic fluid without gallbladder wall thickening. This is likely due to the patient's diffuse edematous state. 4. A few fluid-filled borderline dilated loops of small bowel within the left side of the abdomen measuring up to 3 cm in diameter. No definite transition point identified. This could represent a mild ileus or low-grade partial small bowel obstruction. 5. There is also an indeterminate exophytic 1.4 cm lesion within the interpolar right kidney which could represent a hyperdense cyst or possibly a solid renal mass. Follow-up nonemergent renal ultrasound recommended for further evaluation. ACT 112: Positive. There are findings on this exam that require communication between the performing entity and the patient following Patient Test Result Information Act ([place] Act 112) guidelines. Electronically signed by: Hitesh Garcia M.D. 11/19/2023 2:04 PM Discharge Plan Visit Data Chief Complaint: Abdominal Pain Stated Complaint: ABDOMINAL PAIN ED Provider: Gurjit Izaguirre Discharge Problem: Cirrhosis, Abdominal pain, Abdominal ascites, Hypoalbuminemia Forms Stand Alone Forms: [facility] Prescriptions Prescriptions: No Action simvastatin 40 mg Tablet 20 mg PO QPM phenobarbital 32.4 mg Tablet 6 tab PO QPM Rx Instructions: DOSE 194.4 MG potassium chloride 10 mEq tablet extended release 10 meq PO Q OTHER DAY furosemide 20 mg tablet 20 mg PO QAM aspirin 81 mg tablet,delayed release (DR/EC) 81 mg PO QPM Referrals Referrals: Krystian Joel [Primary Care Provider] - Discharge Problem: Cirrhosis Qualifiers: Hepatic cirrhosis type: unspecified hepatic cirrhosis Ascites presence: with ascites Qualified Code(s): K74.60 - Unspecified cirrhosis of liver Abdominal pain Qualifiers: Abdominal location: periumbilical Qualified Code(s): R10.33 - Periumbilical pain Abdominal ascites Qualifiers: Ascites type: other type Qualified Code(s): R18.8 - Other ascites
[2023-11-19 12:25] LABS: Basophils # (auto) 0.06 K/uL (0.00-0.20); Basophils % (auto) 0.7 %; Eosinophils # (auto) 0.11 K/uL (0.00-0.50); Eosinophils % (auto) 1.3 %; Hemoglobin 15.9 g/dl (14.0-18.0); Immature Granulocytes # (auto) 0.02 K/uL (0.01-0.20); Immature Granulocytes % (auto) 0.2 %; Lymphocytes # (auto) 1.53 K/uL (1.20-3.40); Lymphocytes % (auto) 17.6 %; Mean Corpuscular Hemoglobin 30.2 pg (25.0-34.0); Mean Corpuscular Hgb Conc 33.8 g/dL (32.0-36.0); Mean Corpuscular Volume 89.4 fL (80.0-100.0); Mean Platelet Volume 9.9 fL (9.4-12.4); Monocytes # (auto) 0.62 K/uL (0.11-0.59); Monocytes % (auto) 7.1 %; Neutrophils # (auto) 6.36 K/uL (1.40-6.50); Neutrophils % (auto) 73.1 %; Platelet Count 425 K/uL (130-400); RDW Coefficient of Variation 16.6 % (11.5-14.5); Red Blood Count 5.26 M/uL (4.70-6.10)
[2023-11-19] MEDS: SODIUM CHLORIDE 0.9% 1,000 ML IV ONE (12:35)
[2023-11-19 13:08] LABS: INR 1.3 (0.9-1.1); Prothrombin Time 13.5 Seconds (9.0-12.0)
[2023-11-19 13:14] LABS: Albumin Globulin Ratio 0.7 (0.9-2); Albumin Level 2.3 gm/dl (3.4-5.0); BUN Creatinine Ratio 17.4 (10-20); Bilirubin,Total 0.3 mg/dl (0.2-1.0); Calcium 8.6 mg/dl (8.6-10.3); Creatinine Clr Calc Pharmacy 91.9 ml/min; Est GFR (Non-African American) 85.4 ml/min; Globulin 3.5 gm/dl (2.5-4.0); Potassium 4.4 mmol/L (3.5-5.1); Total Protein 5.8 gm/dl (6.0-8.3)
[2023-11-19 13:21] LABS: Troponin I High Sensitivity 18.1 pg/ml (0-20)
[2023-11-19] MEDS: OPTIRAY 320 100ml IV ONE (13:52)
--- NOTE | 2023-11-19 14:06 | CT Scan Report ---
ABDOMEN AND PELVIS CT WITH IV CONTRAST CT DOSE: 1484.46 mGy.cm HISTORY: mid abdominal pain TECHNIQUE: Multiaxial CT images of the abdomen and pelvis were performed following the use of intrave nous contrast. A dose lowering technique was utilized adhering to the principles of ALARA. COMPARISON STUDY: None. FINDINGS: There are trace bilateral pleural effusions. Otherwise, the lung bases are clear. Moderate body wall edema. Nodular contour to the liver consistent with cirrhosis. No hepatic or splenic masses . The spleen is normal in size. The adrenal glands and pancreas unremarkable. Mild pericholecystic fl uid. No gallbladder wall thickening. The main portal vein is patent. Normal caliber abdominal aorta. No retroperitoneal lymphadenopathy. Multiple bilateral renal hypodense lesions. These favor cysts. So me of these are too small to characterize. There is also an indeterminate exophytic 1.4 cm lesion wit hin the interpolar right kidney on image 126. This could represent a hyperdense cyst or possibly a so lid renal mass. No hydronephrosis. The bladder is unremarkable. Small amount of ascites is noted. No bowel wall thickening. A few colonic diverticula. No evidence for acute diverticulitis. Mild mesenter ic edema is noted. Normal appendix. A few fluid-filled borderline dilated loops of small bowel within the left side of the abdomen measuring up to 3 cm in diameter. No definite transition point identifi ed. This could represent a mild ileus or low-grade partial small bowel obstruction. IMPRESSION: 1. Cirrhotic liver with a small amount of ascites. 2. Moderate body wall edema and trace bilateral pleural effusions. 3. Small amount of pericholecystic fluid without gallbladder wall thickening. This is likely due to t he patient's diffuse edematous state. 4. A few fluid-filled borderline dilated loops of small bowel within the left side of the abdomen dylan suring up to 3 cm in diameter. No definite transition point identified. This could represent a mild i leus or low-grade partial small bowel obstruction. 5. There is also an indeterminate exophytic 1.4 cm lesion within the interpolar right kidney which co uld represent a hyperdense cyst or possibly a solid renal mass. Follow-up nonemergent renal ultrasoun d recommended for further evaluation. ACT 112: Positive. There are findings on this exam that require communication between the performing entity and the patient following Patient Test Result Information Act ([place] Act 112) guidelines. Electronically signed by: Hitesh Garcia M.D. 11/19/2023 2:04 PM
--- NOTE | 2023-11-19 15:56 | History & Physical Report ---
Date of Service November 19, 2023 Assessment & Plan (1) Abdominal pain: Plan: Acute onset of abdominal pain, diaphoresis, nausea, and SOB that began at [facility] on 11/18 at 10:30 AM; lasted approximately 1 hour A/P CT revealed cirrhotic liver, pericholecystic fluid, and mild ileus versus low-grade partial SBO Concern regarding new onset of cirrhosis Notably, no transaminitis INR mildly elevated at 1.3 on arrival Mildly elevated alk phos at 158 Hypoalbuminemia at 2.3 Stool PCR ordered, pending Clear liquid diet for now Zofran as needed for nausea/vomiting Acetaminophen IV as needed for pain Dilaudid IV q3h as needed for breakthrough pain A.m. CBC, CMP, A1c, fasting lipid panel, PT/INR, magnesium, and phenobarb level (2) Cirrhosis: Plan: Blood patient reports his abdominal pain has subsided, he is mainly coming in at this time for new onset cirrhosis workup Liver ultrasound ordered, pending Lab work includes: RICKY Alpha-1 antitrypsin Anti-smooth muscle Ferritin Acute hepatitis panel DDx at this time includes autoimmune hepatitis, alcohol associated liver disease, nonalcoholic associated fatty liver disease, medication-induced cirrhosis, alpha 1 antitrypsin deficiency, hepatitis, hemochromatosis, and infection (among other etiologies) (3) Orthostatic hypotension: Plan: Fall precautions PT/OT evaluations appreciated (4) Hypertension: Plan Disposition: Obs -admit to MedSurg Full code Clear liquid diet, then advance to low-sodium diet as tolerated VTE PPx: Lovenox 40 mg SQ q24h History of Present Illness Chief Complaint: Abdominal pain Primary Care Provider: Krystian Erickson is a 73-year-old male with PMH of syncope, seizure, migraine, HTN, HLD, GERD, orthostatic hypotension, chronic sinusitis, and rectal bleeding. He presented on 11/18 for acute onset of abdominal pain that started while he was at [facility] today at 1030. Pain was located midline transverse across his umbilicus. He describes it as a sharp stabbing, constant pain. He rates it 10/10 at its worst, it is 0/10 now. The pain lasted from 10:30 AM to 12:30 PM (just over 1 hour) before subsiding on its own. Associated symptoms at the time included dizziness, diaphoresis, SOB, and nausea. Patient reports he has not had anything to eat today, and that has been feeling queasy. No similar past experiences like this 1. No prior history of abdominal surgeries. Patient reports he has not been eating as much recently because he has no appetite. The only medication he took this morning was his Lasix, which she started recently for lower extremity edema. He denies history of heart failure, CVA, DM, or FL. He does have a history of PE in 1985 that occurred after surgery, but this was a provoked episode, and he is not currently on blood thinners. No sick contacts. Additionally he endorses diarrhea x 1 week with 1 episode of bloody diarrhea. He attributes the bloody diarrhea to his rectal fissure. He also endorses loose stool for most of the diarrhea, but 1 day when it was completely liquid. No melena reported. No history of GI bleeds. No history of UTIs. Patient is a current everyday tobacco cigarette smoker; 0.5-1 PPD. He does endorse alcohol use6 beers per week. He denies history of heavy alcohol use. Denies other recreational drug use. Patient also endorses dizziness, diaphoresis, SOB, and blood in the stool. Patient is hypertensive at 153/78 at time of admission; vitals otherwise stable. ED course: NSS 1000 mL IV ROS: Patient endorses one episode of sever abdominal pain, increased fatigue, brain fog, XIE (ongoing; attributes it to low BP, then stopped taking Flomax and it went back up), intermittent chest palpitations, productive cough (clear; patient attributes to smoking), nausea, diarrhea, increased urinary frequency and straining (since he quit Tamsulosin), dysuria, burning with urination, nad intermittent hand tingling/numbness. Patient denies fever, chills, night-sweats, headache, changes in vision, fainting, chest pain, SOB at rest, hemopytsis, pleuritic CP, vomiting, melena, and gross hematuria. Allergies Allergy/AdvReac Type Severity Reaction Status Date / Time dorzolamide Allergy Severe eyes Verified 11/19/23 15:51 swollen azithromycin Allergy Intermediate Rash Verified 11/19/23 15:51 Home Medications Medication Instructions Recorded Confirmed Type phenobarbital 32.4 mg tablet 6 tab PO QPM 08/01/18 11/19/23 History simvastatin 40 mg tablet 20 mg PO QPM 08/01/18 11/19/23 History aspirin 81 mg tablet,delayed 81 mg PO QPM 06/14/23 11/19/23 History release furosemide 20 mg tablet 20 mg PO QAM 11/19/23 11/19/23 History potassium chloride 10 mEq 10 meq PO Q OTHER DAY 11/19/23 11/19/23 History tablet,extended release Past Med/Surg History Problem List (Updated 11/19/23 @ 16:52 by Hitesh Valladares PA-C) Cirrhosis Weakness (Acute) Edema (Acute) Shortness of breath (Acute) PVCs (premature ventricular contractions) PAC (premature atrial contraction) Fall Palpitation (Acute) Syncope (Acute) Rectal bleeding Rotator cuff arthropathy of right shoulder Impacted cerumen, right ear Sensorineural hearing loss (SNHL) of left ear with restricted hearing of right ear Perforation of tympanic membrane of left ear due to otitis media Allergic rhinitis Otitis externa in mycoses Abdominal pain Impacted cerumen of both ears Chronic sinusitis Encounter for pre-operative examination Orthostatic hypotension it's his standing blood pressure he has trouble with Seizure Grand mal (most recent 1978) GERD (gastroesophageal reflux disease) no current meds Hyperlipidemia Hypertension hx-no current meds; "has low blood pressure now" Migraine Medical History (Updated 11/19/23 @ 16:52 by Hitesh Valladares PA-C) History of palpitations , hospitalized @[facility], "due to orthostatic hypotension"; f/u dr. garcia, ma BPH (benign prostatic hyperplasia) History of COVID-19 03/2023, not hosp; still has low blood pressure now w/orthostatice hypotension Bulging disc Degenerative disc disease Osteoarthritis Glaucoma Restless leg syndrome Pulmonary embolism 1985 post-op (back surgery) Surgical History History of reverse total replacement of right shoulder joint right History of sinus surgery Endoscopic sinus surgery (08/09/18): [place]#5[place] [facility] [place] No issues noted per post-op anesthesia progress note. H/O eye surgery Detached retina repairs-bilateral H/O sinus surgery History of repair of rotator cuff R/L History of carpal tunnel release R/L History of discectomy Lumbar History of colonoscopy Dr. Richards with polypectomy History of tooth extraction History of cataract surgery R/L Family History Father Family hx of colon cancer Cancer Colorectal cancer Heart disease Grandfather (Maternal) Family hx of colon cancer Grandfather Colorectal cancer Social History Smoking Status: Current every day smoker Tobacco Type: Cigarettes Cigarettes Per Day: 10; Second Hand Exposure: Yes (hx growing up); Do You Dip or Chew Tobacco: No; Hx Alcohol Use: Yes Alcohol type: beer Hx Substance Use: No Preferred Language: Barbadian Communication Ability: Effective Repairer Finished Metal Required: No Beliefs That Will Affect Care: None marital status: Current Living Situation: Spouse Feels Safe at Home: Yes Diet: regular Assistive Devices: Glasses Review of Systems Review of Systems: See HPI above Physical Exam Physical Exam: General: no acute distress; pleasant affect; non-toxic appearing; well- nourished; cooperative; SpO2 92% on RA HEENT: normocephalic, atraumatic; no scleral icterus; PERRLA; vision and hearing grossly intact Neck: supple; no lymphadenopathy; trachea midline Skin: warm, dry without signs of tenting; no cyanosis; no rashes, bruising, lesions, or erythema noted CV: chest wall NTP; RRR; S1/S2 normal; no murmurs/rubs/gallops; pulses intact and symmetric at radial, DP, and PT Lungs: no acute respiratory distress; symmetrical chest wall expansion; clear breath sounds across all lung patten w/o adventitious sounds; no wheezing ABD: Soft, NTP in all 4 quadrants; specifically, no tenderness to palpation in the right upper quadrant, or around the umbilicus; BS present; no rebound/guarding; moderate distention secondary to body habitus; no signs of rashes, bruising, or erythema on the abdomen or flanks bilaterally MSK: no tics or fasciculations; +2 pitting edema in the lower extremities bilaterally, nonerythematous Neuro: A&Ox3; normal mood and affect; fluent speech; no focal deficits; sensation grossly intact in the LEs b/l Results & Data Results & Data Vital Signs (Past 12 Hours) Vital Signs Temp Pulse Pulse Resp BP BP Pulse Ox 11/19/23 14:03 72 19 153/78 H 95 11/19/23 12:54 66 18 155/80 H 94 11/19/23 12:19 73 11/19/23 12:12 94 11/19/23 12:11 73 15 159/76 H 94 11/19/23 11:55 36.9 C 77 12 128/79 98 O2 Del Method 11/19/23 14:03 Room Air 11/19/23 12:54 11/19/23 12:19 11/19/23 12:12 Room Air 11/19/23 12:11 Room Air 11/19/23 11:55 Room Air Laboratory Results Abnormal lab results 11/19/23 Range/Units 12:09 RDW Std Deviation 54.0 H (36.4-46.3) fL RDW Coeff of Vince 16.6 H (11.5-14.5) % Plt Count 425 H (130-400) K/uL Bremer # (Auto) 0.62 H (0.11-0.59) K/uL PT 13.5 H (9.0-12.0) Seconds INR 1.3 H (0.9-1.1) Alkaline Phosphatase 158 H (34-104) U/L Total Protein 5.8 L (6.0-8.3) gm/dl Albumin 2.3 L (3.4-5.0) gm/dl Albumin/Globulin Ratio 0.7 L (0.9-2) Diagnostic Findings Abdomen/Pelvis CT 11/19/23 13:[address] WITH IV CONTRAST CT DOSE: 1484.46 mGy.cm HISTORY: mid abdominal pain TECHNIQUE: Multiaxial CT images of the abdomen and pelvis were performed fol lowing the use of intravenous contrast. A dose lowering technique was utilized adhering to the principles of ALARA. COMPARISON STUDY: None. FINDINGS: There are trace bilateral pleural effusions. Otherwise, the lung bases are clear. Moderate body wall edema. Nodular contour to the liver consistent with cirrhosis. No hepatic or splenic masses. The spleen is normal in size. The adrenal glands and pancreas unremarkable. Mild pericholecystic fluid. No gallbladder wall thickening. The main portal vein is patent. Normal caliber abdominal aorta. No retroperitoneal lymphadenopathy. Multiple bilateral renal hypodense lesions. These favor cysts. Some of these are too small to characterize. There is also an indeterminate exophytic 1.4 cm lesion within the interpolar right kidney on image 126. This could represent a hyperdense cyst or possibly a solid renal mass. No hydronephrosis. The bladder is unremarkable. Small amount of ascites is noted. No bowel wall thickening. A few colonic diverticula. No evidence for acute diverticulitis. Mild mesenteric edema is noted. Normal appendix. A few fluid-filled borderline dilated loops of small bowel within the left side of the abdomen measuring up to 3 cm in diameter. No definite transition point identified. This could represent a mild ileus or low- grade partial small bowel obstruction. IMPRESSION: 1. Cirrhotic liver with a small amount of ascites. 2. Moderate body wall edema and trace bilateral pleural effusions. 3. Small amount of pericholecystic fluid without gallbladder wall thickening. This is likely due to the patient's diffuse edematous state. 4. A few fluid-filled borderline dilated loops of small bowel within the left side of the abdomen measuring up to 3 cm in diameter. No definite transition point identified. This could represent a mild ileus or low-grade partial small bowel obstruction. 5. There is also an indeterminate exophytic 1.4 cm lesion within the interpolar right kidney which could represent a hyperdense cyst or possibly a solid renal mass. Follow-up nonemergent renal ultrasound recommended for further evaluation. ACT 112: Positive. There are findings on this exam that require communication between the performing entity and the patient following Patient Test Result Information Act ([place] Act 112) guidelines. Electronically signed by: Hitesh Garcia M.D. 11/19/2023 2:04 PM ECG Additional Comments: ECG revealed NSR at 77 bpm; QTc 457 Code Status & VTE Plan Code Status Full code VTE Prophylaxis Plan VTE Prophylaxis will be ordered: Yes Supervising Physician Co-Signing Physician Notes Patient seen and examined, chart reviewed, case discussed with Hitesh Valladares PA-C and I agree with the assessment and plan as above except as otherwise noted Labs and images reviewed Dre is a 73-year-old male who presented for abdominal pain 2/10 and associated with dizziness, diaphoresis, shortness of breath which worsened during [facility] today. Has had blood in his stool with diarrhea recently. EKG normal sinus rhythm, left fascicular block. No territorial ST/T wave changes. No leukocytosis. Troponin is normal. No transaminitis. CTA/P shows cirrhotic liver with small amount of ascites, moderate body wall edema with trace bilateral pleural effusions, small amount of pericholecystic fluid without gall bladder wall thickening likely due to edema. Fluid filled loops of small bowel at the left abdomen measuring 3 cm suspicious for mild ileus versus low-grade partial small bowel obstruction. Exophytic 1.4 cm lesion within the interpolar right kidney noted? Dense cyst versus solid renal mass, follow-up with nonemergent renal ultrasound recommended. History of bilateral lower extremity edema, exertional dyspnea follows with cardiology. Patient has been taking teaspoons of salt prior development of edema to help increase his blood pressure, this was suspected to the cause of his edema. Was recommended for follow-up with PCP due to elevated protein/alk phos/abnormal UA. Last echo 06/2023 with EF 60-65%. 1-2 hours of abdominal pain with interval improvement. CT ?new cirrhosis. No prior history of cirrhosis. CT-chest did not note any abnormalities of the abdomen 06/2023 at that time. Has development of ascites today. Since march progressive fatigue and low BP, was taking salt to try and help with this. Cirrhosis Patient with evidence of cirrhosis and on CT which is new compared to prior imaging. He does not have a transaminitis. Small amount of ascites, can review with IR 11/19 to see if there is any pocket amenable to ultrasound-guided paracentesis with fluid analysis Has evidence of synthetic dysfunction with hypoalbuminemia and elevated INR at 1.3, does report that he eats around diet with lots of greens. No hemodynamic instability. Approximate 5 beers per week Lab workup ordered including hepatitis panel,fasting lipid panel, A1c, ferritin/iron panel, RICKY screen with anti-smooth muscle and alpha antitrypsin. No metastatic or malignant appearing lesions are noted on CT, patient does have an elevated alkaline phosphatase with weight loss. Follow-up of renal mass as noted below Right renal mass Right renal ultrasound ordered for further characterization ? Ileus CT with some concern for mild ileus versus low-grade partial small bowel obstruction. Patient reports he is passing gas, having bowel movements, has had some intermittent morning nausea but none currently and has been tolerating meals. Have some nausea this morning improved. Abdomen is soft and nontender, although distended.? Reactive from edema. Clears, advance diet as tolerated to low-salt Volume overload Patient with fluid overload including ascites and effusion; however has been taking teaspoons of salt and large amounts of water to try to keep his blood pressure. Does not have a history of systolic heart failure. Will continue above workup, Lasix 20 mg IV x 1, follow ins and outs and follow progression is noted Agree with above PG Care Time/CCT Total # of Minutes Spent Total Time Spent with Patient: Total time spent is greater than 50% in coordination of care (as documented) at patient's floor/unit and/or counseling patient: Coding [place] [address] INT INP/OBS CARE 3/75MIN Patient Type Established History Comprehensive Exam Comprehensive Medical Decision Making High Complexity Diagnoses Abdominal pain R10.9 Cirrhosis K74.60 Orthostatic hypotension I95.1 Hypertension I10
[2023-11-19 17:28] LABS: Magnesium 1.6 mg/dl (1.7-2.4)
[2023-11-19 17:48] LABS: Ferritin 85.6 ng/ml (8-388)
[2023-11-19] MEDS ORDERED: ACETAMINOPHEN 1,000 MG/100 ML VIAL IV PRN (17:50)
[2023-11-19] MEDS ORDERED: ONDANSETRON INJ 2 MG/ML 2 ML VIAL IV PRN (17:50)
[2023-11-19] MEDS ORDERED: HYDROmorphone INJ 0.5 MG/0.5 ML SYR IV PRN (17:50)
[2023-11-19] MEDS ORDERED: HYDROmorphone INJ 1 MG/ML SYRINGE IV PRN (17:50)
--- NOTE | 2023-11-19 18:16 | Ultrasound Report ---
ABDOMINAL ULTRASOUND, RIGHT UPPER QUADRANT HISTORY: Mid abdominal pain. Cirrhosis, gallbladder edema. COMPARISON: Abdomen and pelvis CT 11/19/2023. FINDINGS: Pancreas: The pancreatic head and tail are obscured by overlying bowel gas. The remaining portions of the pancreas are within normal limits. Liver: Subtle nodular contour to the liver consistent with cirrhosis. There is a small amount of gayatri hepatic ascites. The main portal vein is patent. Gallbladder: No gallbladder wall thickening. No gallstones. Trace pericholecystic fluid is again note d which likely corresponds the patient's known ascites. Negative sonographic Gutierrez sign. CBD: 5 mm. Right kidney: No hydronephrosis. Multiple cysts with the largest measuring 3 cm. The exophytic 1.4 cm lesion within the upper pole seen on the prior CT is not well visualized on this study. IMPRESSION: 1. Cirrhotic liver with a small amount of ascites. 2. No gallbladder wall thickening. No gallstones. 3. Normal caliber common bile duct. 4. The exophytic 1.4 cm lesion within the upper pole seen on the prior CT is not well visualized on t his study. This can be reassessed with a dedicated renal MRI to exclude the possibility of a renal ma ss. ACT 112: Positive. There are findings on this exam that require communication between the performing entity and the patient following Patient Test Result Information Act ([place] Act 112) guidelines. Electronically signed by: Hitesh Garcia M.D. 11/19/2023 6:14 PM
[2023-11-19 18:22] LABS: Appearance Urine Clear (Clear); Bacteria Urine Automated None Seen (None Seen); Bilirubin Urine Negative (Negative); Blood Urine 1+ (Negative); Cast Urine Automated 0-2 /lpf (0-2); Color Urine Yellow; Epithelial Cell Urine Auto 0-2 /hpf (0-2); Glucose Urine UA Negative (Negative); Ketones Urine Negative (Negative); Leukocyte Esterase Urine Negative (Negative); Nitrite Urine Negative (Negative); Protein Urine 4+ (Negative); RBC Urine Automated 0-2 /hpf (0-2); Specific Gravity Urine 1.045 (1.000-1.030); Urobilinogen Urine Negative (Negative); WBC Urine Automated 0-5 /hpf (0-5); pH Urine 6.5 (4.5-7.5)
[2023-11-19] MEDS: ENOXAPARIN INJ 40 MG/0.4 ML SYR SQ SCH (19:52)
[2023-11-19] MEDS: SIMVASTATIN 20 MG TAB PO SCH (19:53)
[2023-11-19] MEDS: ASPIRIN 81 MG ECTAB PO SCH (19:53)
[2023-11-19] MEDS: PHENobarbitaL 30 MG TAB PO SCH (21:06)
[2023-11-20 05:50] LABS: Basophils # (auto) 0.07 K/uL (0.00-0.20); Eosinophils % (auto) 2.9 %; Hematocrit (blood only) 40.6 % (42.0-52.0); Hemoglobin 13.8 g/dl (14.0-18.0); Immature Granulocytes # (auto) 0.02 K/uL (0.01-0.20); Immature Granulocytes % (auto) 0.3 %; Lymphocytes # (auto) 2.07 K/uL (1.20-3.40); Lymphocytes % (auto) 30.5 %; Mean Corpuscular Hemoglobin 29.9 pg (25.0-34.0); Mean Corpuscular Volume 88.1 fL (80.0-100.0); Mean Platelet Volume 9.7 fL (9.4-12.4); Monocytes # (auto) 0.73 K/uL (0.11-0.59); Monocytes % (auto) 10.8 %; Neutrophils % (auto) 54.5 %; Platelet Count 360 K/uL (130-400); RDW Coefficient of Variation 16.2 % (11.5-14.5); RDW Standard Deviation 52.5 fL (36.4-46.3); Red Blood Count 4.61 M/uL (4.70-6.10); White Blood Count 6.79 K/ul (4.8-10.8)
[2023-11-20 06:15] LABS: INR 1.2 (0.9-1.1); Prothrombin Time 12.8 Seconds (9.0-12.0)
[2023-11-20 06:16] LABS: Albumin Globulin Ratio 0.6 (0.9-2); Albumin Level 1.8 gm/dl (3.4-5.0); BUN Creatinine Ratio 15.3 (10-20); Bilirubin,Total 0.3 mg/dl (0.2-1.0); Calcium 7.7 mg/dl (8.6-10.3); Chol HDL Ratio 5.7 (0-5); Creatinine Clr Calc Pharmacy 109.7 ml/min; Est GFR (African American) 106.5 ml/min; Est GFR (Non-African American) 91.9 ml/min; Globulin 2.8 gm/dl (2.5-4.0); Magnesium 1.7 mg/dl (1.7-2.4); Potassium 3.9 mmol/L (3.5-5.1); Total Protein 4.6 gm/dl (6.0-8.3)
[2023-11-20 06:40] LABS: HepB Surface Ag with confirm Negative (Negative)
[2023-11-20 06:45] LABS: HepC Ab Rflx HepCQuant RNA Negative (Negative)
[2023-11-20] MEDS: POTASSIUM CHLORIDE 10 MEQ TABCR PO SCH (07:07)
[2023-11-20] MEDS: FUROSEMIDE 20 MG TAB PO SCH (07:08)
[2023-11-20 07:51] LABS: Estimated Average Glucose 105 mg/dl; Hemoglobin A1C 5.3 % (4.5-5.6)
--- NOTE | 2023-11-20 11:13 | Discharge Summary ---
Date of Service November 20, 2023 Admission HPI Per Admitting Provider Dre is a 73-year-old male with PMH of syncope, seizure, migraine, HTN, HLD, GERD, orthostatic hypotension, chronic sinusitis, and rectal bleeding. He presented on 11/18 for acute onset of abdominal pain that started while he was at [facility] today at 1030. Pain was located midline transverse across his umbilicus. He describes it as a sharp stabbing, constant pain. He rates it 10/10 at its worst, it is 0/10 now. The pain lasted from 10:30 AM to 12:30 PM (just over 1 hour) before subsiding on its own. Associated symptoms at the time included dizziness, diaphoresis, SOB, and nausea. Patient reports he has not had anything to eat today, and that has been feeling queasy. No similar past experiences like this 1. No prior history of abdominal surgeries. Patient reports he has not been eating as much recently because he has no appetite. The only medication he took this morning was his Lasix, which she started recently for lower extremity edema. He denies history of heart failure, CVA, DM, or OR. He does have a history of PE in 1985 that occurred after surgery, but this was a provoked episode, and he is not currently on blood thinners. No sick contacts. Additionally he endorses diarrhea x 1 week with 1 episode of bloody diarrhea. He attributes the bloody diarrhea to his rectal fissure. He also endorses loose stool for most of the diarrhea, but 1 day when it was completely liquid. No melena reported. No history of GI bleeds. No history of UTIs. Patient is a current everyday tobacco cigarette smoker; 0.5-1 PPD. He does endorse alcohol use6 beers per week. He denies history of heavy alcohol use. Denies other recreational drug use. Patient also endorses dizziness, diaphoresis, SOB, and blood in the stool. Patient is hypertensive at 153/78 at time of admission; vitals otherwise stable. ED course: NSS 1000 mL IV ROS: Patient endorses one episode of sever abdominal pain, increased fatigue, brain fog, XIE (ongoing; attributes it to low BP, then stopped taking Flomax and it went back up), intermittent chest palpitations, productive cough (clear; patient attributes to smoking), nausea, diarrhea, increased urinary frequency and straining (since he quit Tamsulosin), dysuria, burning with urination, nad intermittent hand tingling/numbness. Patient denies fever, chills, night-sweats, headache, changes in vision, fainting, chest pain, SOB at rest, hemopytsis, pleuritic CP, vomiting, melena, and gross hematuria. Principal Diagnosis epigastric abdominal pain, cirrhosis Discharge Exam Constitutional WD/WN, vitals as above Respiratory normal respiratory effort, lungs clear to auscultation Cardiovascular RRR, no murmur, no edema Gastrointestinal (Abdomen) normal bowel sounds, soft, nontender, no hepatosplenomegaly Skin no rashes, warm and dry Psychiatric A+Ox3, euthymic affect Discharge Data Allergies Allergy/AdvReac Type Severity Reaction Status Date / Time dorzolamide Allergy Severe eyes Verified 11/19/23 15:51 swollen azithromycin Allergy Intermediate Rash Verified 11/19/23 15:51 Consultations 11/19/23 15:47 ED Decision to Admit Stat Ordered Studies Abdomen/Pelvis CT 11/19/23 13:09 IMPRESSION: 1. Cirrhotic liver with a small amount of ascites. 2. Moderate body wall edema and trace bilateral pleural effusions. 3. Small amount of pericholecystic fluid without gallbladder wall thickening. This is likely due to the patient's diffuse edematous state. 4. A few fluid-filled borderline dilated loops of small bowel within the left side of the abdomen measuring up to 3 cm in diameter. No definite transition point identified. This could represent a mild ileus or low-grade partial small bowel obstruction. 5. There is also an indeterminate exophytic 1.4 cm lesion within the interpolar right kidney which could represent a hyperdense cyst or possibly a solid renal mass. Follow-up nonemergent renal ultrasound recommended for further evaluation. Electronically signed by: Hitesh Garcia M.D. 11/19/2023 2:04 PM Liver Ultrasound 11/19/23 16:43 IMPRESSION: 1. Cirrhotic liver with a small amount of ascites. 2. No gallbladder wall thickening. No gallstones. 3. Normal caliber common bile duct. 4. The exophytic 1.4 cm lesion within the upper pole seen on the prior CT is not well visualized on this study. This can be reassessed with a dedicated renal MRI to exclude the possibility of a renal mass. Electronically signed by: Hitesh Garcia M.D. 11/19/2023 6:14 PM 11/20/23 05:22 11/20/23 05:22 Vital Signs Temp 36.5 C 11/20/23 09:57 Pulse 76 11/20/23 09:57 Resp 16 11/20/23 09:57 BP 156/76 H 11/20/23 09:57 Pulse Ox 93 11/20/23 09:57 O2 Del Method Room Air 11/20/23 07:34 Hospital Course (1) Abdominal pain: Patient presented to the ED on 11/18 with chief complaint of abdominal pain, diaphoresis, nausea, and SOB that lasted about 1 hour. He underwent a CTAP that revealed new onset of cirrhosis, pericholecystic fluid, & mild ileus vs low grade partial SBO. Patient did endorse about a 1 week history of diarrhea. Patient has not had a BM since he reported to the hospital. CMP, CBC WNL. Patient was tolerating clear liquid diet. He reported his abdominal pain was subsided by time he went to ER but wanted to get a further workup for cirrhosis. He was given zofran as needed for nausea/vomiting and Tylenol as needed for pain with Dilaudid for breakthrough pain. On day of discharge patient reported no complaints. Hgb was 13.8 but likely dilutional from IVF. WBC WNL. Patient's protein and albumin were decreased but patient reports minimal oral intake over last week due to diarrhea. Patient likely had episode of gastroenteritis. Stool studies unfortunately not completed since patient did not have BM. (2) Cirrhosis: CTAP revealed new onset of cirrhosis. Follow up RUQ ultrasound also consistent with cirrhosis. Discussed w/ patient in detail. Liver workup was ordered including RICKY, ASMA, AMA, alpha-1 antitrypsin, ferritin, and acute hepatitis panel. Patient will follow up with PCP and GI upon discharge for results. If negative, likely alcohol induced given he drinks 6 pack of beer daily. Alcohol cessation highly encouraged to patient. Plan Patient discharged on low sodium diet. He is to resume previous outpatient medications. Total Time Total Time Spent Total Time Spent (In Minutes): 35 Total Time Includes: Examination of the Patient, Discharge Planning and Medication Reconciliation Discharge Plan Discharge Items Patient Disposition: Home - Self-Care Reason For Visit: ACUTE ABDOMINAL PAIN Discharge Diagnosis: epigastric abdominal pain Activity: Resume your previous activity Non-emergency contact: Primary Care Provider Call non-emergency contact if: you have any medication questions, your symptoms worsen and your pain is not controlled Follow-up/Referrals: Krystian Jole [Primary Care Provider] - (PLEASE CALL YOUR PCP TO MAKE A HOSPITAL FOLLOW UP VISIT IN 7-10 DAYS. I TRIED TO MAKE THIS APPOINTMENT FOR YOU, HOWEVER; THE OFFICE IS CLOSED ON MONDAYS.) Diet: Low Sodium (2gm) Addtl Attending Provider Instructions: Mr. Vera, You were recently hospitalized overnight due to abdominal pain. While in the hospital your symptoms resolved. There was findings of cirrhosis (advanced liver disease) on both CAT scan and ultrasound. You have been given a packet of information regarding cirrhosis as well to take home and review. Please see recommendations below regarding discharge. 1. Please continue on Lasix 20mg daily 2. Please restrict your sodium in your diet to 2gm daily for cirrhosis. -You may resume a regular diet since your abdominal pain has resolved. 3. Please start taking Pantoprazole 40mg once daily. -It is suspected that your abdominal pain was due to GERD vs gastritis. 4. Someone will be in contact with you to follow up in the GI office for further evaluation of cirrhosis. 5. Please resume previous medications as prescribed by your PCP. Please follow up with your PCP within 1-2 weeks. If you develop any worsening abdominal pain, chest pain, or shortness of breath please report to the ER for further evaluation. Sincerely, Brittney Gar PA-C Pending Studies at Discharge: No Stand-Alone Forms: My [facility], Smoking Cessation Medications and DC Order Prescriptions: New pantoprazole 40 mg tablet,delayed release (DR/EC) 40 mg PO QAM Qty: 30 0RF Continued simvastatin 40 mg Tablet 20 mg PO QPM phenobarbital 32.4 mg Tablet 6 tab PO QPM Rx Instructions: DOSE 194.4 MG potassium chloride 10 mEq tablet extended release 10 meq PO Q OTHER DAY furosemide 20 mg tablet 20 mg PO QAM aspirin 81 mg tablet,delayed release (DR/EC) 81 mg PO QPM Discharge Orders: Discharge Order (Routine); Ordered 11/20/23 Ordered By: Brittney Gar Admission Data Admit Date/Time: 11/19/23 16:50 Attending Provider: Meet Ruano Admit Provider: Angel Kohli Primary Care Provider: Krystian Joel Other Providers: Angel Kohli Other Interventions: Discharge Summary Assessment (RN) Last Done: 11/20/23 09:57 Supervising Physician Co-Signing Physician Notes The patient was not seen by me. The chart was reviewed. Case discussed with ELIA Erazo. Agree with assessment and plan Coding Level of Care Code 76714 INP/OBS DISCH >30 MIN Diagnoses Abdominal pain R10.9 Cirrhosis K74.60; R18.8 Ascites presence: with ascites Hepatic cirrhosis type: unspecified hepatic cirrhosis
--- NOTE | 2023-11-21 06:24 | Electrocardiogram Report ---
Test Reason : Blood Pressure : / mmHG Vent. Rate : 077 BPM Atrial Rate : 077 BPM P-R Int : 178 ms QRS Dur : 088 ms QT Int : 404 ms P-R-T Axes : 057 -63 057 degrees QTc Int : 457 ms Normal sinus rhythm Left anterior fascicular block Abnormal ECG When compared with ECG of 12-NOV-2023 12:27, No significant change was found Confirmed by Edward Villavicencio ([id number]) on 11/21/2023 6:24:24 AM Referred By: Confirmed By:Edward Villavicencio
== END 2023-11-20 11:38 | disposition home or self-care (01) ==
LOC: 3E 11:50 → ED 11:50 → SUATTDRO 16:50 → 3E 17:34

== ENCOUNTER 2024-03-13 12:13 | Inpatient (IN) ==
[2024-03-13] MEDS: MoRPHine SULFATE 4 MG/ML 1 ML CARP\\VIAL IV STA (13:55)
--- NOTE | 2024-03-13 13:56 | Ultrasound Report ---
LEFT LOWER EXTREMITY ARTERIAL DOPPLER ULTRASOUND CLINICAL HISTORY: Left lower extremity, pale LLE. COMPARISON STUDY: No previous studies for comparison. TECHNIQUE: Grayscale, color and duplex Doppler sonography of the left lower extremity arterial system was performed. FINDINGS: There is extensive atherosclerotic plaque within the left lower extremity. There is triphas ic flow within the left common femoral artery and biphasic flow within the proximal left superficial femoral artery. Elevated peak systolic velocity of 359 cm/s within the mid left superficial femoral a rtery is noted. Markedly dampened, monophasic flow within the mid to distal left superficial femoral artery is noted. There is monophasic flow within the left popliteal artery. There is markedly dampene d, monophasic flow within the proximal left posterior tibial and anterior tibial arteries with no def inite flow within the distal aspects of these vessels. 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 T here is no flow within the left dorsalis pedis. IMPRESSION: 1. Extensive atherosclerotic plaque within the left lower extremity. 2. Findings consistent with a stenosis, likely severe, within the mid left superficial femoral artery . Markedly dampened, monophasic flow distal to this stenosis. 3. Markedly diminished flow within the left calf vessels. Minimal flow within the proximal left calf vessels without definite distal flow. This suggests occlusion of the distal left calf vessels. These findings are age indeterminate. ACT 112: Negative or not required by law. Electronically signed by: Kulwant Odnonell M.D. 03/13/2024 1:54 PM
--- NOTE | 2024-03-13 13:57 | Emergency Department Note ---
Impression & Plan Ischemic leg, Abdominal ascites, Hypoalbuminemia, Left leg pain ED Provider Note CHIEF COMPLAINT: Left leg pain HISTORY OF PRESENT ILLNESS: This 73 year old male patient presents to the emergency department via private vehicle accompanied by female for evaluation of left leg pain. Pt. states symptoms started 1-2 days ago. Patient reports intermittent pain and swelling for several weeks. He states he is experiencing "liver issues" and being worked up by [facility]. Patient does report history of DVT after surgery. No DVT since that time. He denies any chest pain or shortness of breath at this time. He states that he has had some ascites and weight gain over the past several weeks. Pt. states he was taking ASA daily, but recently discontinued this due to some bleeding at the uretra with straight catheterizing himself and from an anal fissure. Patient states the leg pain is worse with sitting down and seems to improve when he is up and moving around. He states that when he removed the sock, the foot was red, but now appears to be more pale in color. History provided by: Patient REVIEW OF SYSTEMS: A 10 system review of systems was performed with positives and pertinent negatives listed in the history of present illness. All other systems were reviewed and are negative. ALLERGIES: azithromycin, dorzolamide PHYSICAL EXAM: VITALS: Vitals are noted on the nurse's note and reviewed by myself. GENERAL: This is a 73 year old male, in no acute distress, nondiaphoretic, well- developed well-nourished. SKIN: The left lower extremity from the knee to the toes is pale. There is no edema. There is some mild tenderness to palpation of the posterior aspect of the calf. Able to move the toes. He does report decreased sensation. Otherwise the skin was without rashes, erythema, edema, or bruising. There is no tenting of the skin. Capillary refill less than 2 seconds. HEAD: Normocephalic atraumatic. EYES: Conjunctivae without injection, sclerae without icterus. MOUTH: Mucous membranes moist. NECK: Supple without nuchal rigidity. No lymphadenopathy. No JVD. LUNGS: No retractions or accessory muscle use. MUSCULOSKELETAL: No muscle atrophy, erythema, or edema noted. Full range of motion without joint tenderness in all extremities. Strength 5/5 throughout. NEURO: Patient was alert and oriented to person place and time. Decreased sensation to light and sharp touch of the LLE. No focal neurological deficits. VASCULAR: Diminished left dorsal pedal and posterior tibial pulses. Imaging as interpreted by myself and the radiologist revealed arterial occlusion of the LLE, with radiologist interpretation as above. I agree with the radiologist's findings as based upon my independent interpretation. EMERGENCY DEPARTMENT COURSE: The patient was seen and evaluated as above. The patient presents to the emergency department for left lower extremity pain. This started about 1 to 2 days ago. On examination, the patient had diminished dorsal pedal pulse on the left lower extremity. The leg was pale. There is no significant edema. Given the examination findings and the history, we did elect to perform arterial study to evaluate the arterial flow of the left lower extremity. Ultrasound study was completed and reviewed by myself radiologist as noted. This was concerning for an occlusion of the left lower extremity. IV access was obtained, labs are drawn. I discussed the case with my attending physician. I discussed the case with Dr. Smith, vascular surgeon. He reviewed the imaging studies and is concerned for an arterial occlusion. He would like the patient to be admitted to the hospitalist service, initiated on heparin with cardiac workup completed go to the OR tomorrow. Discussed this recommendation with the patient and visitor at bedside. Labs are still pending at this time. Pt. agreeable with inpatient care. At this time, the LLE appears mottled and feels cool. I discussed case with transit manager. I discussed the case with Beatris Rapp PA-C with [facility] hospitalist. She did agree to evaluate the patient. Please see hospitalist/vascular dictation regarding ongoing management of this patient. Case was discussed with the attending physician. This visit is during a period of high volume and high acuity in the emergency department. I attest that I have personally reviewed the patient medication list. I attest that I have reviewed the patient's blood pressure and it was found to be elevated. GCS: 15 In the evaluation and treatment of this patient the following differential diagnoses were entertained: DVT, arterial occlusion, musculoskeletal, infection, joint effusion, trauma, lymphedema, idiopathic, CHF, as well as other pathologies. The chart was completed utilizing [employer] voice recognition software. Grammatical errors, random word insertions, pronoun errors, and incomplete sentences are an occasional consequence of this system due to software limitations, ambient noise, and hardware issues. Any formal questions or concerns about the content, text, or information contained within the body of this dictation should be directly addressed to the provider for clarification. Past Med/Surg History Problem List (Updated 03/13/24 @ 15:36 by Merry Barboza PA-C) Left leg pain (Acute) Ischemic leg (Acute) Hypoalbuminemia (Acute) Abdominal ascites (Acute) Abdominal pain (Acute) Cirrhosis (Acute) PVCs (premature ventricular contractions) PAC (premature atrial contraction) Fall Palpitation (Acute) Syncope (Acute) Rectal bleeding Rotator cuff arthropathy of right shoulder Impacted cerumen, right ear Sensorineural hearing loss (SNHL) of left ear with restricted hearing of right ear Perforation of tympanic membrane of left ear due to otitis media Allergic rhinitis Otitis externa in mycoses Abdominal pain Impacted cerumen of both ears Chronic sinusitis Encounter for pre-operative examination Orthostatic hypotension it's his standing blood pressure he has trouble with Seizure Grand mal (most recent 1978) GERD (gastroesophageal reflux disease) no current meds Hyperlipidemia Hypertension hx-no current meds; "has low blood pressure now" Migraine Medical History History of palpitations , hospitalized @[facility], "due to orthostatic hypotension"; f/u dr. 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 issues noted per post-op anesthesia progress note. H/O eye surgery Detached retina repairs-bilateral H/O sinus surgery History of repair of rotator cuff R/L History of carpal tunnel release R/L History of discectomy Lumbar History of colonoscopy Dr. Richards with polypectomy History of tooth extraction History of cataract surgery R/L Family History Father Family hx of colon cancer Cancer Colorectal cancer Heart disease Grandfather (Maternal) Family hx of colon cancer Grandfather Colorectal cancer Social History Smoking Status: Current every day smoker Tobacco Type: Cigarettes Cigarettes Per Day: 10; Second Hand Exposure: Yes (hx growing up); Do You Dip or Chew Tobacco: No; Hx Alcohol Use: Yes Alcohol type: beer Hx Substance Use: No Preferred Language: Yi Communication Ability: Effective Dba Developer Required: No Beliefs That Will Affect Care: None marital status: Current Living Situation: Spouse Feels Safe at Home: Yes Diet: regular Assistive Devices: None Allergies Allergies Allergy/AdvReac Type Severity Reaction Status Date / Time dorzolamide Allergy Severe eyes Verified 01/18/24 11:40 swollen azithromycin Allergy Intermediate Rash Verified 01/18/24 11:40 Home Meds Home Medications Medication Instructions Recorded Confirmed phenobarbital 32.4 mg tablet 6 tab PO QPM 08/01/18 01/18/24 simvastatin 40 mg tablet 20 mg PO QPM 08/01/18 01/18/24 aspirin 81 mg tablet,delayed 81 mg PO QPM 06/14/23 01/18/24 release potassium chloride 10 mEq 10 meq PO Q OTHER DAY 11/19/23 01/18/24 tablet,extended release furosemide 20 mg tablet 20 mg PO QAM PRN edema, wt gain, 01/18/24 01/18/24 short of breath Previous Rx's Medication Instructions Recorded pantoprazole 40 mg tablet,delayed 40 mg PO QAM #30 tabs 11/20/23 release midodrine 10 mg tablet 10 mg PO TID #60 tabs 02/04/24 Results & Data (ED) Vital Signs Vital Signs - 24 hr 03/13/24 12:16 03/13/24 14:15 03/13/24 14:39 Temperature 36.4 C L Temperature Source Temporal Artery Scan Pulse Rate 86 Pulse Rate [Apical] 59 L Pulse Rhythm [Apical] Pulse Strength [Apical] Respiratory Rate 18 16 11 L Respiratory Effort / Characteristics Non-Labored Non-Labored Spontaneous Respiratory Depth Normal Normal Respiratory Pattern Regular Regular Blood Pressure 128/78 Blood Pressure [Left Arm] 134/70 143/84 H Blood Pressure Mean 94 Blood Pressure Mean [Left Arm] 91 103 Blood Pressure Position [Left Arm] Sitting Pulse Oximetry 91 94 Oxygen Delivery Method Room Air Room Air Sepsis Recent Fever Within 48 Hours No Sepsis New/Unexplained Change in Mental Status N/A Sepsis Action Taken by Nursing No Action Required 03/13/24 14:44 Temperature Temperature Source Pulse Rate Pulse Rate [Apical] 60 Pulse Rhythm [Apical] Regular Pulse Strength [Apical] Normal Respiratory Rate 16 Respiratory Effort / Characteristics Non-Labored Spontaneous Respiratory Depth Normal Respiratory Pattern Regular Blood Pressure Blood Pressure [Left Arm] 143/84 H Blood Pressure Mean Blood Pressure Mean [Left Arm] 103 Blood Pressure Position [Left Arm] Sitting Pulse Oximetry 95 Oxygen Delivery Method Room Air Sepsis Recent Fever Within 48 Hours Sepsis New/Unexplained Change in Mental Status Sepsis Action Taken by Nursing Laboratory Data 03/13/24 13:30 03/13/24 13:30 Lab Results 03/13/24 Range/Units 13:30 WBC 16.04 H (4.8-10.8) K/ul RBC 5.18 (4.70-6.10) M/uL Hgb 15.9 (14.0-18.0) g/dl Hct 45.6 (42.0-52.0) % MCV 88.0 (80.0-100.0) fL MCH 30.7 (25.0-34.0) pg MCHC 34.9 (32.0-36.0) g/dL RDW Std Deviation 59.9 H (36.4-46.3) fL RDW Coeff of Vince 19.3 H (11.5-14.5) % Plt Count 490 H (130-400) K/uL MPV 10.3 (9.4-12.4) fL PT 13.0 H (9.0-12.0) Seconds INR 1.2 H (0.9-1.1) APTT 28 (21-31) Seconds PTT Ratio 1.0 Sodium 140 (136-145) mmol/L Potassium 4.2 (3.5-5.1) mmol/L Chloride 108 H (98-107) mmol/L Carbon Dioxide 25 (21-32) mmol/L Anion Gap 7 (3-11) BUN 79 H (6-23) mg/dl Creatinine 1.63 H (0.6-1.4) mg/dl Est Cr Clr Drug Dosing 48.1 ml/min eGFR 43.94 BUN/Creatinine Ratio 48.5 H (10-20) Glucose 125 H (70-99(Fasting)) mg/dl Calcium 8.2 L (8.6-10.3) mg/dl Magnesium 1.9 (1.7-2.4) mg/dl Total Bilirubin 0.3 (0.2-1.0) mg/dl AST 58 H (13-39) U/L ALT 36 (7-52) U/L Alkaline Phosphatase 741 H (34-104) U/L B-Natriuretic Peptide 445 H (0-100) pg/ml Total Protein 5.1 L (6.0-8.3) gm/dl Albumin 1.8 L (3.4-5.0) gm/dl Globulin 3.3 (2.5-4.0) gm/dl Albumin/Globulin Ratio 0.5 L (0.9-2) Administered Medications Discontinued Medications Morphine Sulfate (Morphine Sulfate 4 Mg/Ml 1 Ml Carp\\Vial) 4 mg IV NOW STA Stop: 03/13/24 13:53 Last Admin: 03/13/24 13:55 Dose: 4 mg Documented By: SNS Imaging Data Radiologist's Impression: Duplex Scan Lower Extremity Artery 03/13/24 12:48 LEFT LOWER EXTREMITY ARTERIAL DOPPLER ULTRASOUND CLINICAL HISTORY: Left lower extremity, pale LLE. COMPARISON STUDY: No previous studies for comparison. TECHNIQUE: Grayscale, color and duplex Doppler sonography of the left lower extremity arterial system was performed. FINDINGS: There is extensive atherosclerotic plaque within the left lower extremity. There is triphasic flow within the left common femoral artery and biphasic flow within the proximal left superficial femoral artery. Elevated peak systolic velocity of 359 cm/s within the mid left superficial femoral artery is noted. Markedly dampened, monophasic flow within the mid to distal left superficial femoral artery is noted. There is monophasic flow within the left popliteal artery. There is markedly dampened, monophasic flow within the proximal left posterior tibial and anterior tibial arteries with no definite flow within the distal aspects of these vessels. 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 There is no flow within the left dorsalis pedis. IMPRESSION: 1. Extensive atherosclerotic plaque within the left lower extremity. 2. Findings consistent with a stenosis, likely severe, within the mid left superficial femoral artery. Markedly dampened, monophasic flow distal to this stenosis. 3. Markedly diminished flow within the left calf vessels. Minimal flow within the proximal left calf vessels without definite distal flow. This suggests occlusion of the distal left calf vessels. These findings are age indeterminate. ACT 112: Negative or not required by law. Electronically signed by: Kulwant Odonnell M.D. 03/13/2024 1:54 PM Discharge Plan Visit Data Chief Complaint: Leg Injury/Pain Stated Complaint: LT LEG PAIN/POSSIBLE BLOOD CLOT ED Provider: [facility] ED Midlevel Provider: Merry Barboza Discharge Problem: Ischemic leg, Abdominal ascites, Hypoalbuminemia, Left leg pain Patient Disposition: Admitted As Inpatient Forms Stand Alone Forms: [facility] Prescriptions Prescriptions: No Action midodrine 10 mg tablet 10 mg PO TID Qty: 60 5RF Rx Instructions: do not give last dose of day after 6PM or within 4 hrs of bedtime furosemide 20 mg tablet 20 mg PO QAM PRN (Reason: edema, wt gain, short of breath) simvastatin 40 mg Tablet 20 mg PO QPM Hold Instructions: cirosis phenobarbital 32.4 mg Tablet 6 tab PO QPM Hold Instructions: diagnosed with cirosis Rx Instructions: DOSE 194.4 MG potassium chloride 10 mEq tablet extended release 10 meq PO Q OTHER DAY Hold Instructions: cirosis pantoprazole 40 mg tablet,delayed release (DR/EC) 40 mg PO QAM Qty: 30 0RF Hold Instructions: diagnosed with cirosis aspirin 81 mg tablet,delayed release (DR/EC) 81 mg PO QPM Referrals Referrals: Rahul Tucker MD [Primary Care Provider] -
--- NOTE | 2024-03-13 14:09 | Emergency Department Note ---
ED Visit Note I was consulted by the Advanced Practice Provider. I personally made or approved the management plan for the patient. I performed a substantive portion of the visit. This includes the aspects of: MDM. .
[2024-03-13 14:46] LABS: Hematocrit (blood only) 45.6 % (42.0-52.0); Hemoglobin 15.9 g/dl (14.0-18.0); Mean Corpuscular Hemoglobin 30.7 pg (25.0-34.0); Mean Corpuscular Hgb Conc 34.9 g/dL (32.0-36.0); Mean Platelet Volume 10.3 fL (9.4-12.4); Platelet Count 490 K/uL (130-400); RDW Coefficient of Variation 19.3 % (11.5-14.5); RDW Standard Deviation 59.9 fL (36.4-46.3); Red Blood Count 5.18 M/uL (4.70-6.10); White Blood Count 16.04 K/ul (4.8-10.8)
[2024-03-13 14:50] LABS: INR 1.2 (0.9-1.1); Partial Thromboplastin Time 28 Seconds (21-31)
--- NOTE | 2024-03-13 14:53 | History & Physical Report ---
Date of Service March 13, 2024 Assessment & Plan (1) Occlusion of artery of lower extremity: Plan Dre Vera is a 73y/o M with PMHx significant for dyslipidemia, peripheral vascular disease, Buerger's disease, HTN, BPH with obstruction/lower urinary tract symptoms, urinary retention, bilateral renal cyst, epilepsy, history of pulmonary embolism, monoclonal IgG kappa gammopathy, orthostatic hypotension, cirrhosis with ascites, CKD stage III and tobacco use disorder who presented to the ED on 03/13/2024 for evaluation of left lower leg pain and was found to have an occlusion of the distal left calf vessels on arterial ultrasound imaging. LLE Arterial Occlusion, Buerger's Disease: LLE Arterial Doppler US --> Extensive atherosclerotic plaque within the LLE, findings consistent with a stenosis (likely severe) within the mid L superficial femoral artery, markedly diminished flow within the L calf vessels and minimal flow within the proximal L calf vessels without definite distal flow suggesting occlusion of the distal L calf vessels. Vascular surgery already on board --> IV heparin drip initiated; Plan for patient to undergo LLE angio with possible thrombolysis, possible open thrombectomy/possible fem-distal bypass for limb salvage in OR tomorrow. Type/cross for 2 units of PRBCs if needed. Repeat H/H this evening to monitor Hgb - stable at this time. PRN pain control. Leukocytosis: WBC 16k on admission, likely reactive 2/2 pain however patient has been having some sinus congestion/chills/dysuria recently. CXR, UA pending to r/o infection. CKD Stage III, HTN History of Urinary Retention, BPH: Patient follows with [facility] - Dr. Swann. Per most recent outpatient documentation on [facility], it appears that the patient was diagnosed with CKD stage III. His baseline creatinine has been slowly uptrending since November of this year: 1.2 (November) -> 1.3 (January) -> 1.5 (03/05/2024) -> 1.63 on admission. Hold home Lasix. Bladder scan PRN. Avoid nephrotoxic medications when able. Monitor renal function closely and renally dose medications when able. May benefit from nephrology consultation. Patient does have previous issues with urinary retention. He has been seen by Dr. Dgulas Tadeo [[facility]] as an outpatient. He has been requiring self-catheterization at home. According to outpatient records on [facility], he is supposed to undergo cystoscopy to evaluate his lower urinary tract anatomy. Continue finasteride. Cirrhosis: reports he was recently diagnosed with cirrhosis back in October of this year. He recently saw Dr. Edmonds with [facility] in January. It was thought that his presumed etiology of cirrhosis was drug-induced +/- undiagnosed prior history of fatty liver disease. AST 58, Alk Phos 741 on admission, continue to monitor. May benefit from liver US. Seizure Disorder: Patient was previously on phenobarbital, however he stopped taking this medication approximately 2 months ago. He has not had a seizure since 1975. Seizure precautions. Tobacco Use Disorder: Patient smokes approximately 3 to 4 cigarettes/day. Encour age smoking cessation. Denies need for nicotine patch at this time. History of Proteinuria: He is currently being worked up by [facility] - Dr. Brian Dyson. There was concern of the possibly that the patient may have multiple myeloma as there was evidence of Bence-Cosme proteins in a recent urine sample as an outpatient. He had a bone marrow biopsy done on 03/05/2024 and patient was not made aware of the results. He has a PET scan scheduled next week on 03/19/2024. According to outpatient records on [facility], it was also suspected that the patient may have amyloidosis due to postural hypotension, nephrotic range proteinuria and hepatomegaly. Other Chronic Medical Conditions: BPH/glaucoma --> Can continue home medications for these specific conditions. PRN midodrine for SBP<100 - he takes this TID at home. DVT Prophylaxis: On IV heparin as per above. Code Status: FULL CODE PCP: Rahul Tucker MD Disposition: Admit to PCU/Telemetry Patient seen in collaboration with Dr. Hough. Please see addendum. I spent a total of 65 minutes coordinating, documenting, and providing care for this patient excluding time spent in the performance of separately billed services. This included personally reviewing all current laboratories and imaging studies, medical reconciliation, outpatient chart review and discussion with specialists. This chart was completed in part utilizing Speech Voice Recognition Software. Grammatical errors, random word insertions, pronoun errors, and incomplete sentences are an occasional consequence of this system due to software limitations, ambient noise, and hardware issues. Any formal questions or concerns about the content, text, or information contained within the body of this dictation should be directly addressed to the provider for clarification. History of Present Illness Chief Complaint: Left Lower Leg Pain Primary Care Provider: Rahul Tucker MD Dre Vera is a 73y/o M with PMHx significant for dyslipidemia, peripheral vascular disease, Buerger's disease, HTN, BPH with obstruction/lower urinary tract symptoms, urinary retention, bilateral renal cyst, epilepsy, history of pulmonary embolism, monoclonal IgG kappa gammopathy, orthostatic hypotension, cirrhosis and tobacco use disorder who presented to the ED on 03/13/2024 for evaluation of left lower leg pain. History obtained from the patient, at bedside (whom is a nurse) and associated chart review. Patient with worsening left lower leg pain since yesterday morning. reports that he has been south ving some pain in that left lower leg with ambulation for a few weeks however it worsened more so yesterday and has not improved. Admits that he has noticed some discoloration in his left foot and that it is cooler to the touch. Denies any recent fevers but does endorse some intermittent chills which he mentions he has had since being on midodrine. He had COVID about a year ago and has been dealing with some chronic shortness of breath with exertion since that however he has not required any supplemental oxygen use. He denies any recent increase in the shortness of breath but has been dealing with some sinus congestion. He reports that he had a urine sample taken earlier this month that was infected but he was never started on an oral antibiotic course. He mentions he has been having some burning with urination intermittently. He is currently being worked up by [facility] [Dr. Brian Dyson]. There was concern of the possibly that the patient may have multiple myeloma as there was evidence of Bence-Cosme proteins in a recent urine sample as an outpatient. He had a bone marrow biopsy done on 03/05/2024 and patient was not made aware of the results. He has a PET scan scheduled next week on 03/19/2024. According to outpatient records on [facility], it was also suspected that the patient may have amyloidosis due to postural hypotension, nephrotic range proteinuria and hepatomegaly. reports he was recently diagnosed with cirrhosis back in October of this year. reports that he is not as active as he used to be. Patient mentions that his energy level has significantly declined over the past month or so. Patient does have previous issues with urinary retention. He has seen Dr. Duglas Tadeo [[facility]] as an outpatient. reports that he has had to self catheterize and she has even had to put in a Sousa catheter at home to help drain his bladder. According to outpatient records on [facility], he is supposed to undergo cystoscopy to evaluate his lower urinary tract anatomy. He was started on finasteride in January of this year which seems to be helping per his . Patient reports he was diagnosed with Buerger's disease in 2020. He has a history of PE back in the late following a surgical procedure but has not dealt with any clots since then. He is not currently on any anticoagulation therapy as an outpatient. He is unsure of who diagnosed him with Buerger's disease. Patient and his were unsure of the pathophysiology of this disease as well. They report they were never educated well on this diagnosis. Allergies Allergy/AdvReac Type Severity Reaction Status Date / Time dorzolamide Allergy Severe eyes Verified 01/18/24 11:40 swollen azithromycin Allergy Intermediate Rash Verified 01/18/24 11:40 Home Medications Medication Instructions Recorded Confirmed Type furosemide 20 mg tablet 40 mg PO BID 01/18/24 03/13/24 History midodrine 10 mg tablet 10 mg PO TID #60 tabs 02/04/24 03/13/24 Rx finasteride 5 mg tablet 5 mg PO DAILY 03/13/24 03/13/24 History latanoprost 0.005 % eye drops 1 drp OPB DAILY 03/13/24 03/13/24 History Past Med/Surg History Problem List Occlusion of artery of lower extremity Left leg pain (Acute) Ischemic leg (Acute) Hypoalbuminemia (Acute) Abdominal ascites (Acute) Abdominal pain (Acute) Cirrhosis (Acute) PVCs (premature ventricular contractions) PAC (premature atrial contraction) Fall Palpitation (Acute) Syncope (Acute) Rectal bleeding Rotator cuff arthropathy of right shoulder Impacted cerumen, right ear Sensorineural hearing loss (SNHL) of left ear with restricted hearing of right ear Perforation of tympanic membrane of left ear due to otitis media Allergic rhinitis Otitis externa in mycoses Abdominal pain Impacted cerumen of both ears Chronic sinusitis Encounter for pre-operative examination Orthostatic hypotension it's his standing blood pressure he has trouble with Seizure Grand mal (most recent 1978) GERD (gastroesophageal reflux disease) no current meds Hyperlipidemia Hypertension hx-no current meds; "has low blood pressure now" Migraine Medical History History of palpitations , hospitalized @[facility], "due to orthostatic hypotension"; f/u dr. garcia, ms BPH (benign prostatic hyperplasia) History of COVID-19 03/2023, not hosp; still has low blood pressure now w/orthostatice hypotension Bulging disc Degenerative disc disease Osteoarthritis Glaucoma Restless leg syndrome Pulmonary embolism 1985 post-op (back surgery) Surgical History History of reverse total replacement of right shoulder joint right History of sinus surgery Endoscopic sinus surgery (08/09/18): LMA#5, [place] [facility] [place] No issues noted per post-op anesthesia progress note. H/O eye surgery Detached retina repairs-bilateral H/O sinus surgery History of repair of rotator cuff R/L History of carpal tunnel release R/L History of discectomy Lumbar History of colonoscopy Dr. Richards with polypectomy History of tooth extraction History of cataract surgery R/L Family History Father Family hx of colon cancer Cancer Colorectal cancer Heart disease Grandfather (Maternal) Family hx of colon cancer Grandfather Colorectal cancer Social History Smoking Status: Current every day smoker Tobacco Type: Cigarettes Cigarettes Per Day: 3; Second Hand Exposure: No; Do You Dip or Chew Tobacco: No; Tobacco Cessation Education Requested by Patient: No Hx Alcohol Use: No Hx Substance Use: No Preferred Language: Ugandan Communication Ability: Effective Client Service Administrator Required: No Beliefs That Will Affect Care: None marital status: Current Living Situation: Spouse Other Information That Helps Us Care for You: No Feels Safe at Home: Yes Safety Concerns: Feels Safe At This Time Diet: regular Assistive Devices: None Review of Systems Review of Systems: At least ten systems reviewed and negative, except as noted in the HPI. Physical Exam Physical Exam: General: WD/WN, vitals as above, NAD, sitting up in bed, pleasant, conversing appropriately, at bedside. A+Ox3, euthymic affect. HEENT: Normocephalic, atraumatic. Conjunctivae normal, anicteric sclerae. External ear and nose normal, oropharynx normal. Respiratory: Normal respiratory effort, lungs clear to auscultation, no wheeze, rales, rhonchi. No accessory muscle use. Cardiovascular: Regular rate, rhythm, no murmur, no BLE edema. Vessels: No JVD. Abdomen/GI: Normal bowel sounds, distended but soft, nontender. Extremities/Musculoskeletal: L lower leg and foot cool to the touch, L foot with evidence of mottling. Neurologic: No focal deficits, CN's II-XI not formally tested but appear grossly intact bilaterally. Results & Data Results & Data Vital Signs (Past 12 Hours) Vital Signs Temp Pulse Pulse Resp BP BP Pulse Ox 03/13/24 14:44 60 16 143/84 H 95 03/13/24 14:39 59 L 11 L 143/84 H 94 03/13/24 14:15 16 134/70 03/13/24 12:16 36.4 C L 86 18 128/78 91 O2 Del Method 03/13/24 14:44 Room Air 03/13/24 14:39 Room Air 03/13/24 14:15 03/13/24 12:16 Room Air Laboratory Results Short CBC 03/13/24 Range/Units 13:30 WBC 16.04 H (4.8-10.8) K/ul Hgb 15.9 (14.0-18.0) g/dl Hct 45.6 (42.0-52.0) % Plt Count 490 H (130-400) K/uL Diagnostic Findings Duplex Scan Lower Extremity Artery 03/13/24 12:48 LEFT LOWER EXTREMITY ARTERIAL DOPPLER ULTRASOUND CLINICAL HISTORY: Left lower extremity, pale LLE. COMPARISON STUDY: No previous studies for comparison. TECHNIQUE: Grayscale, color and duplex Doppler sonography of the left lower extremity arterial system was performed. FINDINGS: There is extensive atherosclerotic plaque within the left lower extremity. There is triphasic flow within the left common femoral artery and biphasic flow within the proximal left superficial femoral artery. Elevated peak systolic velocity of 359 cm/s within the mid left superficial femoral artery is noted. Markedly dampened, monophasic flow within the mid to distal left superficial femoral artery is noted. There is monophasic flow within the left popliteal artery. There is markedly dampened, monophasic flow within the proximal left posterior tibial and anterior tibial arteries with no definite flow within the distal aspects of these vessels. 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 There is no flow within the left dorsalis pedis. IMPRESSION: 1. Extensive atherosclerotic plaque within the left lower extremity. 2. Findings consistent with a stenosis, likely severe, within the mid left superficial femoral artery. Markedly dampened, monophasic flow distal to this stenosis. 3. Markedly diminished flow within the left calf vessels. Minimal flow within the proximal left calf vessels without definite distal flow. This suggests occlusion of the distal left calf vessels. These findings are age indeterminate. ACT 112: Negative or not required by law. Electronically signed by: Kulwant Odonnell M.D. 03/13/2024 1:54 PM Medications Administered Discontinued Medications Morphine Sulfate (Morphine Sulfate 4 Mg/Ml 1 Ml Carp\\Vial) 4 mg IV NOW STA Stop: 03/13/24 13:53 Last Admin: 03/13/24 13:55 Dose: 4 mg Documented By: SNS Code Status & VTE Plan Code Status FULL CODE Supervising Physician Co-Signing Physician Notes Patient is a 73-year-old male with multiple comorbidities presents for evaluation of worsening left leg pain since yesterday. He has been having intermittent pain with ambulation for the past few weeks. He noticed some discoloration of left foot and cold to touch. He has been having ongoing minimal cough but some shortness of breath for many months which he attributes to COVID infection. Also reports possible urinary tract infection workup done as outpatient. He reports minimal dysuria but no hematuria. Please review HPI for complete details of presentation. I personally reviewed blood work and imaging studies. Noted elevated white blood cell count 16K, creatinine 1.6. Left lower extremity arterial Doppler suggestive of extensive atherosclerotic plaque within the left lower extremity, findings suggestive of severe stenosis within mid left superficial femoral artery and also findings suggestive of occlusion of the distal left calf vessels. Physical Exam: Vitals signs as noted above General Appearance:Moderately built and nourished, no apparent distress Head: normocephalic, Atraumatic Eyes: normal inspection, EOMI Neck: supple, Trachea midline Respiratory/Chest: Normal breath sounds, CTA, No accessory muscle use Cardiovascular: S1, S2, No murmur Abdomen/GI:Soft, Non tender, Bowel sounds present Extremities/Musculoskeletal:normal inspection, left lower extremity cold, mottled, edematous Neurologic/Psych:AAOX3, grossly no focal neurological deficits Skin: normal color, warm Left lower extremity ischemia Peripheral artery disease Agree with starting IV heparin Vascular surgery consulted for possible thrombolysis, Gómez distal bypass [employer] SAL[employer] after midnight Pain control as needed Will update right lower extremity Doppler ultrasound as well [employer]keeping [employer] to quit smoking tobacco use Check lipid panel Consider to add aspirin daily as able Check urinalysis, chest x-ray as workup for leukocytosis I personally interviewed and examined at bedside. Patient's care is coordinated with Maribell Mackay PA-C. I have reviewed the advanced practitioner's documentation, and I agree with plan of care. Please refer to the documentation above for details of patient's presentation and for discussion of other issues. I spent a total [id number] coordinating, documenting, and providing care for this patient excluding time spent in the performance of separately billed services.
[2024-03-13 15:02] LABS: Albumin Level 1.8 gm/dl (3.4-5.0); Bilirubin,Total 0.3 mg/dl (0.2-1.0); Calcium 8.2 mg/dl (8.6-10.3); Magnesium 1.9 mg/dl (1.7-2.4); Potassium 4.2 mmol/L (3.5-5.1)
[2024-03-13 15:08] LABS: Albumin Globulin Ratio 0.5 (0.9-2); BUN Creatinine Ratio 48.5 (10-20); Creatinine Clr Calc Pharmacy 48.1 ml/min; Globulin 3.3 gm/dl (2.5-4.0); Total Protein 5.1 gm/dl (6.0-8.3)
--- NOTE | 2024-03-13 15:17 | Consultation ---
Date of Consultation March 13, 2024 Assessment & Plan (1) Ischemic leg: Pt with LLE ischemia, approx 1-2 days old. Pt with rest pain and mottled foot. Still able to move toes and has some sensation intact. Artieral US demonstrates a pop occlusion and no patent arteries to foot. Pt also seen by Dr Smith, recommends pt undergo LLE angio with possible thrombolysis, possible open thrombectomy, possible fem-distal bypass for limb salvage in OR tomorrow. Pt also present. Pt is agreeable. Start heparin drip. History of Present Illness Reason for Consultation: LLE ischemia History of Present Illness 73 yo m with hx of HTN, liver cirrhosis with ascites, PAC, hyperlipidemia, migraines, GERD, seizure, admitted with LLE pain and ischemia, seen in consultation today for same. Pt states he has had pain in L calf when ambulating for some time, but developed worse pain in LLE and foot 2 nights ago. Admits discoloration to L foot, chronic BLE edema and ascites, rest pain. Denies HERNANDEZ, fever, chest pain, SOB, abd pain, N/V, other complaints. Arterial US demonstrates pop occlusion with no patent arteries to foot. Allergies Allergy/AdvReac Type Severity Reaction Status Date / Time dorzolamide Allergy Severe eyes Verified 01/18/24 11:40 swollen azithromycin Allergy Intermediate Rash Verified 01/18/24 11:40 Home Medications Medication Instructions Recorded Confirmed Type phenobarbital 32.4 mg tablet 6 tab PO QPM 08/01/18 01/18/24 History simvastatin 40 mg tablet 20 mg PO QPM 08/01/18 01/18/24 History aspirin 81 mg tablet,delayed 81 mg PO QPM 06/14/23 01/18/24 History release potassium chloride 10 mEq 10 meq PO Q OTHER DAY 11/19/23 01/18/24 History tablet,extended release pantoprazole 40 mg tablet,delayed 40 mg PO QAM #30 tabs 11/20/23 01/18/24 Rx release furosemide 20 mg tablet 20 mg PO QAM PRN edema, wt gain, 01/18/24 01/18/24 History short of breath midodrine 10 mg tablet 10 mg PO TID #60 tabs 02/04/24 Rx Patient History Medical History History of palpitations , hospitalized @[facility], "due to orthostatic hypotension"; f/u dr. garcia, or BPH (benign prostatic hyperplasia) History of COVID-19 03/2023, not hosp; still has low blood pressure now w/orthostatice hypotension Bulging disc Degenerative disc disease Osteoarthritis Glaucoma Restless leg syndrome Pulmonary embolism 1985 post-op (back surgery) Surgical History History of reverse total replacement of right shoulder joint right History of sinus surgery Endoscopic sinus surgery (08/09/18): LMA#5, atraumatic at [facility] [place]. No issues noted per post-op anesthesia progress note. H/O eye surgery Detached retina repairs-bilateral H/O sinus surgery History of repair of rotator cuff R/L History of carpal tunnel release R/L History of discectomy Lumbar History of colonoscopy Dr. Richards with polypectomy History of tooth extraction History of cataract surgery R/L Family History Father Family hx of colon cancer Cancer Colorectal cancer Heart disease Grandfather (Maternal) Family hx of colon cancer Grandfather Colorectal cancer Social History Smoking Status: Current every day smoker Tobacco Type: Cigarettes Cigarettes Per Day: 10; Second Hand Exposure: Yes (hx growing up); Do You Dip or Chew Tobacco: No; Hx Alcohol Use: Yes Alcohol type: beer Hx Substance Use: No Preferred Language: Mohawk Communication Ability: Effective Neurosurgical Nurse Practitioner Required: No Beliefs That Will Affect Care: None marital status: Current Living Situation: Spouse Feels Safe at Home: Yes Diet: regular Assistive Devices: None Review of Systems Review of Systems: All systems reviewed & are unremarkable except as noted in HPI & below Physical Exam Constitutional: WD/WN, vitals as above healthy appearing, cooperative and comfortable; not in distress Neck: trachea midline Respiratory: normal respiratory effort, lungs clear to auscultation Auscultation: + diminished lung sounds Cardiovascular: Rate/Rhythm: regular rate and regular rhythm Vessels: posterior tibial pulses present (LLE no doppler) and dorsalis pedis pulses present (LLE no doppler); + abnormal peripheral pulses Extremities: + edema; + abnormal capillary refill (L foot mottled/cold) Gastrointestinal (Abdomen): Inspection/Auscultation: + abdomen distended Percussion/Palpation: abdomen soft; abdomen nontender Skin: no rashes, warm and dry L foot and lower leg mottled and cold. Neurologic: moves all extremities and awake; no focal motor deficits and not confused Psychiatric: A+Ox3, euthymic affect Results & Data Vital Signs (Past 12 Hours) Vital Signs Temp Pulse Pulse Resp BP BP Pulse Ox 03/13/24 14:44 60 16 143/84 H 95 03/13/24 14:39 59 L 11 L 143/84 H 94 03/13/24 14:15 16 134/70 03/13/24 12:16 36.4 C L 86 18 128/78 91 O2 Del Method 03/13/24 14:44 Room Air 03/13/24 14:39 Room Air 03/13/24 14:15 03/13/24 12:16 Room Air
[2024-03-13] MEDS: Heparin IV Adult Wt-Based Standard w/ INITIAL Bolus Protocol IV STA (15:19)
[2024-03-13 15:24] LABS: Basophils # (auto) 0.01 K/uL (0.00-0.20); Basophils % (auto) 0.1 %; Echinocytes 1+; Immature Granulocytes # (auto) 0.07 K/uL (0.01-0.20); Immature Granulocytes % (auto) 0.4 %; Lymphocytes % (auto) 5.6 %; Monocytes # (auto) 0.51 K/uL (0.11-0.59); Monocytes % (auto) 3.2 %; Neutrophils # (auto) 14.55 K/uL (1.40-6.50); Neutrophils % (auto) 90.7 %; Polychromasia 1+
[2024-03-13] MEDS ORDERED: SODIUM CHLORIDE 0.9% 100 ML IV PRN (16:35)
[2024-03-13] MEDS ORDERED: MAGNESIUM HYDROXIDE SUSP 30 ML UDC PO PRN (16:35)
[2024-03-13] MEDS ORDERED: SODIUM CHLORIDE 0.9% 50 ML IV PRN (16:35)
[2024-03-13] MEDS ORDERED: POLYETHYLENE (MIRALAX) 17 GM PACK PO PRN (16:35)
[2024-03-13] MEDS ORDERED: ACETAMINOPHEN 325 MG TAB PO PRN ×2 (16:35→17:32)
[2024-03-13] MEDS ORDERED: ONDANSETRON INJ 2 MG/ML 2 ML VIAL IV PRN (16:35)
[2024-03-13] MEDS ORDERED: MIDODRINE HCL 10 MG TAB PO PRN (17:00)
[2024-03-13] MEDS: HEPARIN SOD (PORCINE) 1000 UNIT/ML IV ONE (17:07)
[2024-03-13] MEDS: HEPARIN SODIUM/DEXTROSE 25,000 UNITS/500 ML BAG IV SCH (17:08)
[2024-03-13] MEDS: MoRPHine SULFATE 2 MG/ML CARP IV PRN (19:14)
[2024-03-13 19:54] LABS: Hemoglobin 14.5 g/dl (14.0-18.0)
--- NOTE | 2024-03-13 20:08 | XRay Report ---
Exam(s): XR CXR 1 VIEW EXAM: XR Chest, 1 View CLINICAL HISTORY: Reason for exam: R/o infection. TECHNIQUE: Frontal view of the chest. COMPARISON: 02/07/2024 FINDINGS: Lungs: Underexpanded lungs. Bilateral perihilar prominent bronchovascular/interstitial markings. Right basilar linear atelectatic changes. No consolidation. Pleural space: Eventration of the right hemidiaphragm. Blunting of right costophrenic sulcus. No pneumothorax. Heart: Stable mildly enlarged heart size. Mediastinum: Atherosclerotic mild tortuosity of the thoracic aorta. Normal mediastinal contour. Bones/joints: Osteopenia. No acute fracture. Total right shoulder replacement. Degenerative changes of the spine and shoulders. IMPRESSION: Low lung volumes. Prominent peripheral pulmonary vascular/interstitial markings, mild pulmonary interstitial edema versus infiltrates. Recommend clinical correlation. . Electronically signed by: Ramana Flynn MD, DABR 03/13/24 20:06 PM
[2024-03-13 22:00] LABS: Appearance Urine Cloudy (Clear); Bacteria Urine Automated None Seen (None Seen); Bilirubin Urine Negative (Negative); Blood Urine 2+ (Negative); Cast Urine Automated >20 /lpf (0-2); Color Urine Yellow; Glucose Urine UA Negative (Negative); Hyaline Casts Urine Present /lpf (None Presnt); Ketones Urine Negative (Negative); Leukocyte Esterase Urine Negative (Negative); Nitrite Urine Negative (Negative); Protein Urine 4+ (Negative); Specific Gravity Urine 1.021 (1.000-1.030); Urobilinogen Urine Negative (Negative); WBC Urine Automated 0-5 /hpf (0-5); pH Urine 5.5 (4.5-7.5)
--- NOTE | 2024-03-14 01:44 | Ultrasound Report ---
Exam(s): US ARTERIAL RIGHT LOWER EXTREMITY EXAM: US Duplex Right Lower Extremity Arteries CLINICAL HISTORY: Reason for exam: PAD. TECHNIQUE: Real-time duplex ultrasound scan of the right lower extremity arteries integrating B-mode two-dimensional vascular structure, Doppler spectral analysis and color flow Doppler imaging. COMPARISON: None. FINDINGS: Right common femoral artery: There is elevated peak systolic flow velocity: 233 cm/s. No occlusion . Normal triphasic waveform. Right superficial femoral artery: No acute findings. No occlusion or significant stenosis on color flow and spectral Doppler imaging. Normal waveform. Right popliteal artery: No acute findings. No occlusion or significant stenosis on color flow and spectral Doppler imaging. Normal waveform. Right calf/foot arteries: No acute findings. No occlusion or significant stenosis on color flow and spectral Doppler imaging. Triphasic/biphasic waveforms Soft tissues: Unremarkable.. 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 Mild/moderate arterial atherosclerosis below the knee joint. No high-grade stenosis or occlusion demonstrated in the rest of the right lower extremity arteries. . Electronically signed by: Ramana Flynn MD, MARIIR 03/14/24 01:42 AM
--- OUTSIDE RECORDS SUMMARY | 2024-03-14 01:50 | External Medical Summary | Summary of Care ---
Author Name Unknown Organization [facility] Address [address] [facility] [place] [address] Phone [phone] Care Team Providers Care Metal Die Finisher Name Role Phone Rahul Tucker MD Primary Care Provide r Reason for Visit * Reason Comments Outpatient Testing Encounter Details Date Type Department Care Team (Late st Contact Info) Description 03/06/2024 12:00 PM EST Laboratory Laboratory [address] [place] [phone] , Specimen Drop Off [address] [place] [address] Other cirrhosis of liver (HCC) Allergies Active Allergy Reactions Criticality Noted Date Comments Azithromycin Hives 12/10/2010 documented as of this encounter (statuses as of 03/06/2024) Medications Medication Sig Dispensed Refills Start Date End Date Status ASPIRIN 81 MG PO CHEW One pill by mouth once a day with food 100 Tab 5 12/10/2010 Active PHENOBARBITAL 32.4 MG PO TABSIndications:Ep ileptic seizure (HCC) 5 tabs daily 150 Tab 11 07/25/2012 Active Additional Information Patient not taking.Reported on 02/09/2024 Vyzulta 0.024 % Ophthalmic Solution (Latanoprostene Bunod) Instill into eye. Active Pantoprazole Sodium 40 MG Oral Tablet Delayed Release (Protonix) Take 1 Tablet by mouth in the morning. Active Potassium Chloride Rosamaria ER 10 MEQ Oral Tablet Extended Release Take 1 Tablet by mouth every other day. Active Midodrine HCl 10 MG Oral Tablet (Proamatine) Take 1 Tablet by mouth in the morning and 1 Tablet at noon and 1 Tablet in the evening. Active Furosemide 40 MG Oral Tablet (Lasix) Take 1 Tablet by mouth in the morning. 90 Tablet 3 02/13/2024 Active Tamsulosin HCl 0.4 MG Oral Capsule (Flomax) Take 1 Capsule by mouth in the morning. Taking every other day. 90 Capsule 3 02/13/2024 Active Additional Information Patient not taking.Reported on 02/28/2024 Finasteride 5 MG Oral Tablet (Proscar) Take 1 Tablet by mouth in the morning. 90 Tablet 3 02/28/2024 Active Latanoprost 0.005 % Ophthalmic Solution (Xalatan) Instill into eye. 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 (statuses as of 03/06/2024) Resolved Problems Problem Noted Date Diagnosed Date Resolved Date Carpal tunnel syndrome 06/17/201402/08 Allergic rhinitis 06/17/2014 02/08/2018 Adjustment disorder with depressed mood 12/10/2013 07/20/2017 Eczema 06/22/2012 07/20/2017 Epileptic seizure 12/10/2010 08/16/2018 documented as of this encounter (statuses as of 03/06/2024) Immunizations Name Administration Dates Next Due Pneumococcal Conjugate Vacc, 13 Valent (Prevnar) 06/17/2014 Pneumococcal Conjugate Vacci ne, 20-valent ([id number]) 02/15/2022 Pneumococcal Polysaccharide PPV23 (Pneumovax) 05/19/2016 Seasonal Influenza, PF, 6 M & above, IM , (FluLaval or Fluzone) 02/15/2022,02/28/2020,03/01/2019,02/08 Seasonal Influenza, Quadriva lent Hd (Fluzone Hd) 02/26/2021 Seasonal Influenza, Trivalen t, (IIV3), PF, (Fluzone) 02/13/2016,01/29/2014,01/23/2013 TDAP (age 10 and older)(Boostrix) 11/17/2011 Varicella Zoster Vaccine (Adult) 01/23/2013 documented as of this encounter Social History Tobacco Use Types Packs/Day Years Used Date Smoking Tobacco: Every Day Cigarettes 0.5 11 Cigars Smokeless Tobacco: Former Quit: 01/08/2015 Comments:Quit for 12 years Alcohol Use Standard Drinks/Week Comments Yes 0 (1 standard drink = 0.6 oz pur e alcohol) PHQ-2 Answer Date Recorded PHQ-2 Score 0 12/10/2019 Hunger Vital Sign Answer Date Recorded Worried About Running Out of Food in the Last Ye ar Never true 07/29/2019 Ran Out of Food in the Last Year Never true 07/29/2019 Sex and Gender Information Value Date Recorded Sex Assigned at Not on file Gender Identity Not on file Sexual Orientation Not on file Job Start Date Occupation Industry Not on file Not on file Not on file documented as of this encounter Plan of Treatment Upcoming Encounters Date Type Department Care Team (Late st Contact Info) Description 03/21/2024 11:30 AM EST Cardiac Studies Cardiac Studies [address] [place] [address] 03/23/2024 10:30 AM EST Imaging Radiology [address] 132 [facility] [place] [address] 03/25/2024 1:45 PM EST Imaging Radiology [address] 132 [place] [address] 04/03/2024 11:15 AM EST Office Visit Hematology/Oncology [facility] 200 [facility] [place] [phone] Brian Dyson MD 200 [facility] [place] [address] 04/15/2024 10:20 AM EST Office Visit Nephrology, [facility] 200 [facility] [place] [address] Arvin Swann MD [address] [place] [phone] 05/20/2024 6:20 PM EST Office Visit Family Medicine [address] [phone] Rahul Tucker MD [address] [place], [place] [address] [address] 07/17/2024 11:15 AM EDT Procedure Only Urology, [facility] 132 [facility] [place] [address] Duglas Tadeo MD [address] [facility] [place] [address] Pending Results Name Type Priority Associated Diagnoses Date /Time URINALYSIS WITH MICROSCOPIC EXAM Lab Routine Other cirrhosis of liver (HCC) 03/06/2024 2:37 PM EST Scheduled Procedures Name Priority Associated Diagnoses Date/Ti me ESOPHAGOGASTRODUODENOSCOPY ( EGD), FLEXIBLE, TRANSORAL, DIAGNOSTIC Recall Cirrhosis (HCC) Esophageal varices (HCC) Health Maintenance Due Date Last Done Comments DISCUSS TOBACCO CESSATION (REFER TO SMARTSET #1691) 1949 Cologuard 1994 Fecal Occult Blood Test 1994 Sigmoidoscopy 1994 Zoster Vaccines (2 of 3) 04/01/2013 02/04/2013, 12/31 Adult Wellness Visit 2015 Depression Screening 12/09/2020 12/10/2019 DTap/Tdap Vaccines (2 - Td or Tdap) 11/16/2021 11/17/2011 Lipid Panel 02/27/2023 02/27/2018, 1105/2016, 03/07/2016, Additional history exists COVID-19 Vaccine ( season) 2023 Influenza Vaccine (FLU shot) (#1) 2023 02/15/2022, 02/26/2021, 02/28/2020, Additional history exists GFR 03/05/2025 03/05/2024, 12/31, 12/25/2023, Additional history exists Albumin/Creatinine Ratio 07/26/2025 07/26/2022, 05/2018 Colonoscopy 06/23/2030 06/23/2020, 06/03/2015 Colorectal Cancer Screening 06/23/2030 AAA Screening Completed 01/06/2021, 03/05/2012 Pneumococcal Vaccine: 65+ Years Completed 02/15/2022, 05/18/2020, 05/19/2016, Additional history exists Hepatitis C Screening Completed 12/18/2023 HPV (Gardasil) Vaccine Aged Out No lo nger eligible based on patient's age to complete this topic Hepatitis B Vaccine Aged Out No longe r eligible based on patient's age to complete this topic MENINGOCOCCAL (MENACTRA/MENVEO) Aged Out No longer eligible based on patient's age to complete this topic documented as of this encounter Medical Devices Not on filedocumented as of this encounter Visit Diagnoses Diagnosis Other cirrhosis of liver (HCC) documented in this encounter Care Teams Metal Die Finisher Relationship Specialty Start Date End Date Rahul Tucker MD [address] [place] [address] [place] [phone] PCP - General Family Medicine 08/03/18 documented as of this encounter
--- OUTSIDE RECORDS SUMMARY | 2024-03-14 01:50 | External Medical Summary | Summary of Care ---
Author Name Unknown Organization [facility] Address [address] [facility] [place] [address] Phone [phone] Care Team Providers Care Paralegals Name Role Phone Rahul Tucker MD Primary Care Provide r Reason for Visit * Reason Comments Outpatient Testing Encounter Details Date Type Department Care Team (Late st Contact Info) Description 03/06/2024 12:00 PM EST Laboratory Laboratory [address] [place] [phone] , Specimen Drop Off [address] [place] [address] Other cirrhosis of liver (HCC) Allergies Active [...] (Prevnar) 06/17/2014 Pneumococcal Conjugate Vacci ne, 20-valent ([id number]) 02/15/2022 Pneumococcal Polysaccharide PPV23 (Pneumovax) 05/19/2016 Seasonal [...] 11:30 AM EST Cardiac Studies Cardiac Studies [address] [place] [address] 03/23/2024 10:30 AM EST Imaging Radiology [address] 132 [facility] [place] [address] 03/25/2024 1:45 PM EST Imaging Radiology [address] 132 [place] [address] 04/03/2024 11:15 AM EST Office Visit Hematology/Oncology [facility] 200 [facility] [place] [phone] Brian Dyson MD 200 [facility] [place] [address] 04/15/2024 10:20 AM EST Office Visit Nephrology, [facility] 200 [facility] [place] [address] Arvin Swann MD [address] [place] [phone] 05/20/2024 6:20 PM EST Office Visit Family Medicine [address] [place] [phone] Rahul Tucker MD [address] [place], [place] [address] [address] 07/17/2024 11:15 AM EDT Procedure Only Urology, [facility] 132 [facility] [place] [address] Duglas Tadeo MD [address] [place] [address] Pending Results Name Type Priority Associated Diagnoses Date /Time COMPREHENSIVE METABOLIC PANEL Lab Routine Other cirrhosis of liver (HCC) 03/06/2024 11:59 AM EST PT INR Lab Routine Other cirrhosis of liver (HCC) 03/06/2024 11:59 AM EST Scheduled Procedures Name Priority Associated Diagnoses Date/Ti me ESOPHAGOGASTRODUODENOSCOPY ( EGD), FLEXIBLE, TRANSORAL, DIAGNOSTIC Recall Cirrhosis (HCC) Esophageal varices (HCC) Health Maintenance Due Date Last Done Comments DISCUSS TOBACCO CESSATION (REFER TO SMARTSET #5071) 1949 Cologuard 1994 Fecal Occult Blood Test 1994 Sigmoidoscopy 1994 Zoster Vaccines (2 of 3) 04/01/2013 02/04/2013, 12/31 Adult Wellness Visit 2015 Depression Screening 12/09/2020 12/10/2019 DTap/Tdap Vaccines (2 - Td or Tdap) 11/16/2021 11/17/2011 Lipid Panel 02/27/2023 02/27/2018, 11/0 05/2016, 03/07/2016, Additional history exists COVID-19 Vaccine ( [...] (HCC) documented in this encounter Care Teams Paralegals Relationship Specialty Start Date End Date Rahul Tucker MD [address] [place] [address] [place] [phone] PCP - General Family Medicine 08/03/18 documented as of this encounter
--- OUTSIDE RECORDS SUMMARY | 2024-03-14 01:50 | External Medical Summary | Summary of Care ---
Author Name Unknown Organization [facility] Address [address] [facility] [place] [address] Phone [phone] Care Team Providers Care Loom Blower Name Role Phone Rahul Tucker MD Primary Care Provide r Reason for Visit * Reason Comments Outpatient Testing Encounter Details Date Type Department Care Team (Late st Contact Info) Description 03/06/2024 12:00 PM EST Laboratory Laboratory [address] [place] [phone] , Specimen Drop Off [address] [place] [address] Other cirrhosis of liver (HCC) Allergies Active [...] (Prevnar) 06/17/2014 Pneumococcal Conjugate Vacci ne, 20-valent ([id number]) 02/15/2022 Pneumococcal Polysaccharide PPV23 (Pneumovax) 05/19/2016 Seasonal [...] 11:30 AM EST Cardiac Studies Cardiac Studies [address] [place] [address] 03/23/2024 10:30 AM EST Imaging Radiology [address] 132 [facility] [place] [address] 03/25/2024 1:45 PM EST Imaging Radiology [address] 132 [place] [address] 04/03/2024 11:15 AM EST Office Visit Hematology/Oncology [facility] 200 [facility] [place] [phone] Brian Dyson MD 200 [place] [address] 04/15/2024 10:20 AM EST Office Visit Nephrology, [facility] 200 [facility] [place] [address] Arvin Swann MD 400 [facility] [place] [address] 05/20/2024 6:20 PM EST Office Visit Family Medicine [address] [phone] Rahul Tucker MD [address] [place], [place] [address] [address] 07/17/2024 11:15 AM EDT Procedure Only Urology, [facility] 132 [facility] [place] [address] Duglas Tadeo MD [address] [facility] [place] [phone] Scheduled Procedures Name Priority Associated Diagnoses Date/Ti me ESOPHAGOGASTRODUODENOSCOPY ( EGD), FLEXIBLE, TRANSORAL, DIAGNOSTIC Recall Cirrhosis (HCC) Esophageal varices (HCC) Health Maintenance Due Date Last Done Comments DISCUSS TOBACCO CESSATION (REFER TO SMARTSET #4124) 1949 Cologuard 1994 Fecal Occult Blood Test 1994 Sigmoidoscopy 1994 Zoster Vaccines (2 of 3) 04/01/2013 02/04/2013, 12/31 Adult Wellness Visit 2015 Depression Screening 12/09/2020 12/10/2019 DTap/Tdap Vaccines (2 - Td or Tdap) 11/16/2021 11/17/2011 Lipid Panel 02/27/2023 02/27/2018, 11/0 05/2016, 03/07/2016, Additional history exists COVID-19 Vaccine ( - season) 2023 Influenza Vaccine (FLU shot) (#1) 2023 02/15/2022, 02/26/2021, 02/28/2020, Additional history exists GFR 03/05/2025 03/05/2024, 12/31, 12/25/2023, Additional history exists Albumin/Creatinine Ratio 07/26/2025 07/26/2022, 11/0 05/2018 Colonoscopy 06/23/2030 06/23/2020, 06/03/2015 Colorectal Cancer [...] (HCC) documented in this encounter Care Teams Loom Blower Relationship Specialty Start Date End Date Rahul Tucker MD [address] [place] [address] [place] [address] PCP - General Family Medicine 08/03/18 documented as of this encounter
--- OUTSIDE RECORDS SUMMARY | 2024-03-14 01:50 | External Medical Summary | Summary of Care ---
Author Name Unknown Organization [facility] Address [address] [facility] [place] [address] Phone [phone] Care Team Providers Care Landing Scaler Name Role Phone Rahul Tucker MD Primary Care Provide r Reason for Visit * Reason Comments Outpatient Testing Encounter Details Date Type Department Care Team (Late st Contact Info) Description 03/06/2024 12:00 PM EST Laboratory Laboratory [address] [place] [phone] , Specimen Drop Off [address] [place] [address] Other cirrhosis of liver (HCC) Allergies Active [...] (Prevnar) 06/17/2014 Pneumococcal Conjugate Vacci ne, 20-valent ([id number]) 02/15/2022 Pneumococcal Polysaccharide PPV23 (Pneumovax) 05/19/2016 Seasonal [...] 11:30 AM EST Cardiac Studies Cardiac Studies [address] [place] [address] 03/23/2024 10:30 AM EST Imaging Radiology [address] 132 [facility] [place] [address] 03/25/2024 1:45 PM EST Imaging Radiology [address] 132 [place] [address] 04/03/2024 11:15 AM EST Office Visit Hematology/Oncology [facility] 200 [facility] [place] [phone] Brian Dyson MD 200 [facility] [place] [address] 04/15/2024 10:20 AM EST Office Visit Nephrology, [facility] 200 [facility] [place] [address] Arvin Swann MD [address] [place] [phone] 05/20/2024 6:20 PM EST Office Visit Family Medicine [address] [phone] Rahul Tucker MD [address] [place] [address] [place] [address] 07/17/2024 11:15 AM EDT Procedure Only Urology, [facility] 132 [facility] [place] [address] Duglas Tadeo MD [address] [place] [phone] Pending Results Name Type Priority Associated Diagnoses Date /Time CBC Lab Routine Other cirrhosis of liver (HCC) 03/06/2024 11:59 AM EST URINALYSIS WITH MICROSCOPIC EXAM Lab Routine Other cirrhosis of liver (HCC) 03/06/2024 11:59 AM EST COMPREHENSIVE METABOLIC PANEL Lab Routine Other cirrhosis of liver (HCC) 03/06/2024 11:59 AM EST PT INR Lab Routine Other cirrhosis of liver (HCC) 03/06/2024 11:59 AM EST Scheduled Procedures Name Priority Associated Diagnoses Date/Ti me ESOPHAGOGASTRODUODENOSCOPY ( EGD), FLEXIBLE, TRANSORAL, DIAGNOSTIC Recall Cirrhosis (HCC) Esophageal varices (HCC) Health Maintenance Due Date Last Done Comments DISCUSS TOBACCO CESSATION (REFER TO SMARTSET #1278) 1949 Cologuard 1994 Fecal Occult Blood Test [...] (HCC) documented in this encounter Care Teams Landing Scaler Relationship Specialty Start Date End Date Rahul Tucker MD [address] [place] [address] [place] [phone] PCP - General Family Medicine 08/03/18 documented as of this encounter
--- OUTSIDE RECORDS SUMMARY | 2024-03-14 01:51 | External Medical Summary ---
Author Name Unknown Address Unknown Organization [id number]:[facility] [place] - [address] [place] [address] Laboratory Report Ordering Provider Test Date Status YOLA CHURCH 03/05/2024 08:37:37 Final Exclude Heart Failure: <300 pg/mL
Diagnose Heart Failure:
Age <50 yr: >450 pg/mL
50-75 yr: >900 pg/mL
>75 yr: >1800 pg/mL
GFR is 30-59 mL/min: >1200 pg/mL or Age- adjusted values
GFR <30 mL/min: do not use, not reliable

Prognostic threshold: 1000 pg/mL Observation Date Value Abnormality Reference (Units ) Status BNP, Pro-hormone 03/05/2024 08:37:37 1478 Above high no rmal <300 (pg/mL) Final Performing Location [facility]ORY [facility] [place] - [address] [place] [address]
--- OUTSIDE RECORDS SUMMARY | 2024-03-14 01:51 | External Medical Summary ---
Author Name Unknown Address Unknown Organization [id number]:LAB[facility]ATORY [facility] - [address] [place] [address] Laboratory Report Ordering Provider Test Date Status YOLA CHURCH 03/05/2024 08:15:00 Final Observation Date Value Abnormality Reference (Units ) Status BONE MARROW FOR FLOW CYTOMETRY 03/05/2024 08:15:00 Yes Final Performing Location LABORATORY [facility] - [address] [place] [address]
--- OUTSIDE RECORDS SUMMARY | 2024-03-14 01:51 | External Medical Summary ---
Author Name Unknown Address Unknown Organization [id number]:[facility] [place] [address] [facility] [place] [address] Laboratory Report Ordering Provider Test Date Status YOLA CHURCH 03/05/2024 08:37:37 Final Observation Date Value Abnormality Reference (Units ) Status SYNC LEUKOCYTES IN BLOOD BY AUTOMATED COUNT 03/05/2024 08:37:37 10.82 Above high normal 4.00-10.80 (K/uL) Final Segs 03/05/2024 08:37:37 77.7 Above high normal 40.0-75.0 (%) Final Lymphs % 03/05/2024 08:37:37 13.2 Below low normal 18.0-42.0 (%) Final Monos 03/05/2024 08:37:37 7.0 1.0-11.0 (%) Final Eosinophils 03/05/2024 08:37:37 0.9 0.0-6.0 (%) Final Basos 03/05/2024 08:37:37 0.8 0.0-2.0 (%) Final Immature Granulocyte, Percent 03/05/2024 08:37:37 0.4 0.0-2.0 (%) Final Absolute Segs 03/05/2024 08:37:37 8.40 Above high normal 1.80-7.70 (K/uL) Final Lymphs, absolute 03/05/2024 08:37:37 1.43 1.00-4.80 (K/ul) Final Monos, Abs 03/05/2024 08:37:37 0.76 0.00-1.10 (K/uL) Final Eos, Abs 03/05/2024 08:37:37 0.10 0.00-0.70 (K/uL) Final Basos, Abs 03/05/2024 08:37:37 0.09 0.00-0.20 (K/uL) Final Immature Granulocytes, Number 03/05/2024 08:37:37 0.04 0.00-0.20 (K/uL) Final Performing Location [facility] [place] [facility] [place] [address]
--- OUTSIDE RECORDS SUMMARY | 2024-03-14 01:51 | External Medical Summary ---
Author Name Unknown Address Unknown Organization [id number]:[facility] [place] [address] Laboratory Report Ordering Provider Test Date Status YOLA CHURCH 03/05/2024 08:37:37 Final Observation Date Value Abnormality Reference (Units ) Status BUN 03/05/2024 08:37:37 58 Above high normal 6-20 (mg/dL) Final Creatinine 03/05/2024 08:37:37 1.5 Above high normal 0.6-1.2 (mg/dL) Final Glomerular filtration rate/1.73 sq M.predicted [Volume Rate/Area] in Serum, Plasma or Blood by Creatinine-based formula (CKD-EPI) 03/05/2024 08:37:37 47 Below low normal >=60 (mL/min) Final eGFR is calculated based on the CKD-EPI 2020 equation. Sodium 03/05/2024 08:37:37 143 135-146 (m mol/L) Final Potassium 03/05/2024 08:37:37 4.5 3.5-5.1 (m mol/L) Final Cl 03/05/2024 08:37:37 110 Above high normal 98 -107 (mmol/L) Final CO2 03/05/2024 08:37:37 25 22-32 (mmo l/L) Final Anion gap 03/05/2024 08:37:37 8 7-15 (mmol /L) Final Glucose 03/05/2024 08:37:37 107 70-120 (mg /dL) Final Albumin 03/05/2024 08:37:37 1.5 Below low normal 3.8 -5.0 (g/dL) Final Results rechecked. AST (Aspartate aminotransferase) 03/05/2024 08:37:37 65 Above high normal 10-50 (U/L) Final Alk Phos 03/05/2024 08:37:37 681 Above hi gh normal 35-130 (U/L) Final Bilirubin, Total 03/05/2024 08:37:37 0.2 <=1 .2 (mg/dL) Final Calcium 03/05/2024 08:37:37 8.8 8.4-1 0.2 (mg/dL) Final Protein 03/05/2024 08:37:37 5.1 Below lo w normal 6.0-8.3 (g/dL) Final ALT (Alanine aminotransferase) 03/05/2024 08:37:37 27 10-50 (U/L) Sarthak baez Performing Location [facility] [address] [place] [address]
--- OUTSIDE RECORDS SUMMARY | 2024-03-14 01:51 | External Medical Summary ---
Author Name Unknown Address Unknown Organization K09:[facility] [place] [address] Laboratory Report Ordering Provider Test Date Status YOLA CHURCH 03/05/2024 08:37:58 Final Warfarin Therapy
INR: 2 .0-3.0 conventional anticoagulation
INR: 2.5- 3.5 high intensity anticoagulation Observation Date Value Abnormality Reference (Units ) Status PT 03/05/2024 08:37:58 14.5 11.6-15.2 (seconds) Final INR 03/05/2024 08:37:58 1.1 0.8-1.2 Final Performing Location [facility] [place] [address]
--- OUTSIDE RECORDS SUMMARY | 2024-03-14 01:51 | External Medical Summary ---
Author Name Unknown Address Unknown Organization K01:LAB[facility] [place] - [address] [place] [address] Laboratory Report Ordering Provider Test Date Status YOLA CHURCH 03/05/2024 08:37:37 Final Anticoagulation may affect t esting. Refer to [facility] Test Catalog for a list of effects. Observation Date Value Abnormality Reference (Units ) Status aPTT panel - Platelet poor plasma 03/05/2024 08:37:37 36 21-38 (seconds) Final Performing Location LAB[facility]ORY [facility] [place] - [address] [place] [address]
--- OUTSIDE RECORDS SUMMARY | 2024-03-14 01:51 | External Medical Summary | Summary of Care ---
Author Name Unknown Organization [facility] Address [address] [place] [address] Phone [phone] Care Team Providers Care Log Deckman Name Role Phone Rahul Tucker MD Primary Care Provide r Reason for Referral * Precert (Diagnostic Medical) (Within 10 days (routine)) - Authorized Specialty Diagnoses / Procedures Referred By Contac t Referred To Contact Cardiac Studies Diagnoses Other cirrhosis of liver (HCC) Procedures ECHO, COMPLETE (2D), TRANS-THORACIC Dolores Edmonds MD [facility] [place] [address] Referral ID Status Reason Start Date Expiration Date V isits Requested Visits Authorized [id number] Authorized Precert 02/28/2024 999 999 * Precert (Within 10 days (routine)) - Authorized Specialty Diagnoses / Procedures Referred By Contac t Referred To Contact Radiology Diagnoses Other cirrhosis of liver (HCC) Procedures MRI LIVER W CONTRAST Dolores Edmonds MD [address] [place] [address] Referral ID Status Reason Start Date Expiration Date V isits Requested Visits Authorized [id number] Authorized 02/28/2024 999 999 Reason for Visit * Reason Onset Date Comments Test Results 02/27/2024 Encounter Details Date Type Department Care Team (Late st Contact Info) Description 02/27/2024 Telephone Family Medicine Vickey Pringle [address] [place] [address] [place] [phone] Rahul Tucker MD [address] [place] [address] [place] [id number] Test Results Allergies Active Allergy Reactions Criticality Noted Date Comments Azithromycin Hives 12/10/2010 documented as of this encounter (statuses as of 02/29/2024) Medications Medication Sig Dispensed Refills Start Date [...] Additional Information Patient not taking.Reported on 02/28/2024 documented as of this encounter (statuses as of 02/29/2024) Active Problems Problem Noted Date Diagnosed Date [...] as of this encounter (statuses as of 02/29/2024) Resolved Problems Problem Noted Date Diagnosed Date Resolved Date Carpal tunnel syndrome 06/17/201402/08 Allergic rhinitis 06/17/2014 02/08/2018 Adjustment disorder with depressed mood 12/10/2013 07/20/2017 Eczema 06/22/2012 07/20/2017 Epileptic seizure 12/10/2010 08/16/2018 documented as of this encounter (statuses as of 02/29/2024) Immunizations Name Administration Dates Next Due Pneumococcal Conjugate Vacc, 13 Valent (Prevnar) 06/17/2014 Pneumococcal Conjugate Vacci ne, 20-valent ([id number]) 02/15/2022 Pneumococcal Polysaccharide PPV23 (Pneumovax) 05/19/2016 Seasonal [...] encounter Miscellaneous Notes * Telephone Encounter - Skyla Ching LPN - 02/29/2024 2:12 PM EDT Bina is aware of recommendations. She will have lab work done tomorrow at his appt in [facility]. * Telephone Encounter - Skyla Ching LPN - 02/29/2024 1:53 PM EDT LMTRC. Please transfer back when she returns call. * Telephone Encounter - Edilson DeborahSHAHID - 02/29/2024 12:59 PM EDT Pt's Bina called returning phone call. Please contact Bina * Telephone Encounter - Vangie Ratliff CMA - 02/29/2024 10:10 AM EDT LM to call back RE: note. * Telephone Encounter - Dolores Edmonds MD - 02/28/2024 9:56 AM EDT Chart has been reviewed - I think she is confused based on what the radiologist wrote in the CT reports. MRI liver is ordered. Was going to order midodrine - but he is on it tid. Would check a cbc to see if hgb dropped regarding rectal bleeding, last egd 2 months ago and a repeat can be pursued if a drop in hgb. Would continue with trying to eat a higher protein diet which can be helpful to improve albumin. Given concerns over confusion- I will just order a ua to rule out infection as a contributor, I am not able to order blood cultures. I also ordered an echo of the heart. Orders placed. Please inform. * Telephone Encounter - Skyla Ching LPN - 02/27/2024 2:29 PM EDT Phone call placed to . She is very concerned about Dre. His BP is so low that he cannot stand up without being lightheaded and experiencing vertigo. She states he has SOB d/t his ascites. He has no appetite. He is very forgetful and has rectal bleeding. After she was given the impression from Dr. Edmonds, she became very upset, stating that is not what she read on his portal. She read the impression back to me: IMPRESSION 1. Ascites and suspected small gastric varices are concerning for portal hypertension. Liver is mildly nodular without definite evidence of cirrhosis on CT. Findings are nonspecific. Hepatomegaly is observed, which is typically more commonly seen with acute hepatic injury than chronic cirrhosis. 2. Small volume ascites and small gastric varices. 3. Mild body wall edema. Correlate with serum albumin level. 4. Additional findings as above. Spouse is requesting repeat EGD, labs and any other testing that may be needed to see if Dre has acute hepatic injury and portal hypertension. Please advise * Telephone Encounter - Skyla Ching LPN - 02/27/2024 2:29 PM EDT Dolores Edmonds MD P [facility] Gastro Nurse Pool/Class Please call and inform them the CT showed concerns for evolving cirrhosis in the setting of underlying fatty liver and a small amount of ascites. Would recommend repeat imaging in 6 months. * Telephone Encounter - Rebeca Todd OSA - 02/27/2024 10:22 AM EDT Patient calling in asking about liver scan results, please return call documented in this encounter Plan of Treatment Upcoming Encounters Date Type Department Care Team (Late st Contact Info) Description 03/01/2024 12:15 PM EDT Office Visit Hematology/Oncology [facility] [address] [facility] [place] [phone] Brian Dyson MD [address] [facility] [place] [address] 03/23/2024 10:30 AM EST Imaging Radiology [facility] [facility] [address] [facility] [place] [address] 04/15/2024 10:20 AM EST Office Visit Nephrology, [facility] [address] [facility] [place] [address] Arvin Swann MD [address] [place] [address] 05/20/2024 6:20 PM EST Office Visit Family Medicine [address] [place] [phone] Rahul Tucker MD [address] [place] [address] [place] [address] 07/17/2024 11:15 AM EDT Procedure Only Urology, [facility] [address] [facility] [place] [address] Duglas Tadeo MD [address] [place] [address] Scheduled Orders Name Type Priority Associated Diagnoses Orde r Schedule MRI LIVER W CONTRAST Medical Imaging Routine Other cirrhosis of liver (HCC) Expected: 02/28/2024, Expires: 03/30/2025 CBC Lab Routine Other cirrhosis of liver (HCC) Expected: 02/28/2024, Expires: 02/27/2025 ECHO, COMPLETE (2D), TRANS-THORACIC Echocardiology Routine Other cirrhosis of liver (HCC) Expected: 02/28/2024, Expires: 03/30/2026 URINALYSIS WITH MICROSCOPIC EXAM Lab Routine Other cirrhosis of liver (HCC) Expected: 02/28/2024, Expires: 02/27/2025 COMPREHENSIVE METABOLIC PANEL Lab Routine Other cirrhosis of liver (HCC) Expected: 02/28/2024, Expires: 02/27/2025 PT INR Lab Routine Other cirrhosis of liver (HCC) Expected: 02/28/2024, Expires: 02/27/2025 Health Maintenance Due Date Last Done Comments DISCUSS TOBACCO CESSATION (REFER TO SMARTSET #3165) 1950 Cologuard 1994 Fecal Occult Blood Test 1994 Sigmoidoscopy 1994 Zoster Vaccines (2 of 3) 04/01/2013 02/04/2013, 12/31 Adult Wellness Visit 2015 Depression Screening 12/09/2020 12/10/2019 DTap/Tdap Vaccines (2 - Td or Tdap) 11/16/2021 11/17/2011 Lipid Panel 02/27/2023 02/27/2018, 05/2016, 03/07/2016, Additional history exists COVID-19 Vaccine ( season) 2023 Influenza Vaccine (FLU shot) (#1) 2023 02/15/2022, 02/26/2021, 02/28/2020, Additional history exists GFR 01/18/2025 01/19/2024, 11/30, 12/18/2023, Additional history exists Albumin/Creatinine Ratio 07/26/2025 07/26/2022, [...] Visit Diagnoses Diagnosis Other cirrhosis of liver (HCC)- Primary documented in this encounter Care Teams Log Deckman Relationship Specialty Start Date End Date Rahul Tucker MD [address] [place] [address] [place] [phone] PCP - General Family Medicine 08/03/18 documented as of this encounter
--- OUTSIDE RECORDS SUMMARY | 2024-03-14 01:51 | External Medical Summary | Summary of Care ---
Author Name Unknown Organization [facility] Address [address] [facility] [place] [address] Phone [phone] Care Team Providers Care Lung Splitter Name Role Phone Rahul Tucker MD Primary Care Provide r Reason for Referral * Precert (Diagnostic Medical) (Within 10 days (routine)) - Authorized Specialty Diagnoses / Procedures Referred By Contac t Referred To Contact Cardiac Studies Diagnoses Other cirrhosis of liver (HCC) Procedures ECHO, COMPLETE (2D), TRANS-THORACIC Dolores Edmonds MD [facility] [place] [address] Referral ID Status Reason Start Date Expiration Date V isits Requested Visits Authorized [id number] Authorized Precert 02/28/2024 999 999 * Precert (Within 10 days (routine)) - Authorized Specialty Diagnoses / Procedures Referred By Contac t Referred To Contact Radiology Diagnoses Other cirrhosis of liver (HCC) Procedures MRI LIVER W CONTRAST Dolores Edmonds MD [address] [place] [address] Referral ID Status Reason Start Date Expiration Date V isits Requested Visits Authorized [id number] Authorized 02/28/2024 999 999 Reason for Visit * Reason Onset Date Comments Test Results 02/27/2024 Encounter Details Date Type Department Care Team (Late st Contact Info) Description 02/27/2024 Telephone Family Medicine Vickey Pringle [address] [place] [address] [place] [phone] Rahul Tucker MD [address] [place] [address] [place] [address] Test Results Allergies Active Allergy Reactions Criticality [...] (Prevnar) 06/17/2014 Pneumococcal Conjugate Vacci ne, 20-valent ([id number]) 02/15/2022 Pneumococcal Polysaccharide PPV23 (Pneumovax) 05/19/2016 Seasonal [...] she returns call. * Telephone Encounter - Deborah Waggoner OSA - 02/29/2024 12:59 PM EDT Pt's Bina [...] placed. Please inform. * Telephone Encounter - Sykla Ching LPN - 02/27/2024 2:29 PM EDT [...] 02/27/2024 2:29 PM EDT Dolores Edmonds MD [facility] Gastro Nurse Pool/Class Please call and inform [...] 03/01/2024 12:15 PM EDT Office Visit Hematology/Oncology [facility] Ronqu[facility] [place] [address] [facility] [place] [phone] Brian Dyson MD [address] [place] [place] [address] 03/23/2024 10:30 AM EST Imaging Radiology [facility] [address] [facility] [address] [place] [address] 04/15/2024 10:20 AM EST Office Visit Nephrology, [facility] [address] [facility] [place] [address] Arvin Swann MD [address] [facility] [place] [address] 05/20/2024 6:20 PM EST Office Visit Family Medicine [address] [phone] Rahul Tucker MD [address] [place] [address] [place] [address] 07/17/2024 11:15 AM EDT Procedure Only Urology, [facility] [address] [place] [address] Duglas Tadeo MD [address] [place] [address] [place] [address] Scheduled Orders Name Type Priority Associated Diagnoses [...] Comments DISCUSS TOBACCO CESSATION (REFER TO SMARTSET #0781) 1950 Cologuard 1994 Fecal Occult Blood Test [...] Primary documented in this encounter Care Teams Lung Splitter Relationship Specialty Start Date End Date Rahul Tucker MD [address] [place] [address] [place] [address] PCP - General Family Medicine 08/03/18 documented as of this encounter
--- OUTSIDE RECORDS SUMMARY | 2024-03-14 01:51 | External Medical Summary | Summary of Care ---
Author Name Unknown Organization [facility] [address] [facility] [address] Phone [phone] Care Team Providers Care Sweet Potato Disintegrator Name Role Phone Rahul Tucker MD Primary Care Provide r Reason for Referral * Precert (Within 10 days (routine)) - Authorized Specialty Diagnoses / Procedures Referred By Contac t Referred To Contact Radiology Diagnoses Paraproteinemia Light chain (AL) amyloidosis (HCC) Multiple myeloma not having achieved remission (HCC) Procedures PET CT WHOLE BODY FDG Brian Dyson MD [address] [facility] [place] [address] Referral ID Status Reason Start Date Expiration Date V isits Requested Visits Authorized [id number] Authorized 03/05/2024 999 999 Reason for Visit * Reason Comments Procedure BMBX Encounter Details Date Type Department Care Team (Late st Contact Info) Description 03/05/2024 8:00 AM EST Office Visit Hematology/Oncology [facility] [place] [address] [place] [id number] Brian Dyson MD [address] [facility] [place] [address] Paraproteinemia*; Light chain (AL) amyloidosis (HCC); Multiple myeloma not having achieved remission (HCC) Allergies Active Allergy Reactions Criticality Noted Date Comments Azithromycin Hives 12/10/2010 documented as of this encounter (statuses as of 03/05/2024) Medications Medication Sig Dispensed Refills Start Date [...] as of this encounter (statuses as of 03/05/2024) Active Problems Problem Noted Date Diagnosed Date [...] as of this encounter (statuses as of 03/05/2024) Resolved Problems Problem Noted Date Diagnosed Date Resolved Date Carpal tunnel syndrome 06/17/201402/08 Allergic rhinitis 06/17/2014 02/08/2018 Adjustment disorder with depressed mood 12/10/2013 07/20/2017 Eczema 06/22/2012 07/20/2017 Epileptic seizure 12/10/2010 08/16/2018 documented as of this encounter (statuses as of 03/05/2024) Immunizations Name Administration Dates Next Due Pneumococcal Conjugate Vacc, 13 Valent (Prevnar) 06/17/2014 Pneumococcal Conjugate Vacci ne, 20-valent ([id number]) 02/15/2022 Pneumococcal Polysaccharide PPV23 (Pneumovax) 05/19/2016 Seasonal [...] 11 Cigars Smokeless Tobacco: Former Quit: 01/08/2015 Tobacco Cessation:Ready to Q uit: Not Asked; Counseling Given: Not Answered Comments:Quit for 12 years Alcohol Use Standard [...] on file documented as of this encounter Last Filed Vital Signs Vital Sign Reading Time Taken Comments Blood Pressure 105/70 03/05/2024 7:51 AM EST Pulse 96 03/05/2024 7:50 AM EST Temperature 36.1 C (97 F) 03/05/2024 7:50 AM EST Respiratory Rate 20 03/05/2024 7:50 AM EST Oxygen Saturation 96% 03/05/2024 7:50 AM EST Inhaled Oxygen Concentration - - Weight 103.8 kg (228 lb 12.8 oz) 03/05/2024 7:50 AM EST Height - - Body Mass Index 32.83 03/01/2024 12:00 PM EDT documented in this encounter Patient Instructions * Patient Instructions* Brian Dyson MD - 03/05/2024 8:24 AM EST Patient Instructions for Bone Marrow Aspiration/Biopsy A pressure dressing was applied to your bone marrow aspiration/biopsy site. This should be checked when you return home to look for any bleeding. If the dressing is wet with blood apply pressure to the site for ten minutes and then replace the dressing with a new bandage. If the bleeding doesn't stop, then call the doctor's office immediately or go to the local emergency room. If the dressing is dry when you check it, please remove the dressing prior to going to bed. You may want to cover the site with a bandaid for one or two days until the wound is healed. Should you notice any redness or warmth around the wound, please notify the doctor's office immediately. You may use Tylenol as directed on the bottle for any discomfort that occurs after you return home. 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 INFORMED CONSENT: Obtain and in chart. Risks, benefits, and complications discussed with patient prior to procedure. SITE OF BONE MARROW: Right posterior superior iliac crest. ANESTHESIA: 1% Lidocaine - Local SUMMARY OF PROCEDURE: Patient place in left lateral decubitus position and posterior superior iliacspine palpated and marked. Area clean and draped in the usual fashion using sterile technique with Betadine. The skin, superficial and deep tissues, and periosteum anesthetized with 1% lidocaine in the usual fashion. Small skin incision made and bone marrow needle placed through this opening. Bone marrow needle advanced into bone with minimal difficulty. Bone marrow aspirate obtained without difficulty. Bone marrow needle advanced further and biopsy taken in the usual fashion without difficulty. Lab assisted and spicules present with biopsy specimen. Direct pressure applied to incisional sitewith good hemostasis and a 4 x [address] as a pressure dressing. Patient tolerated the procedure well and will remain in the Heme/Onc Clinic for approx 30 minutes. SPECIMENS: Bone marrow aspiration and bone marrow biopsy sent to the laboratory. Bone marrow sent for flow cytometry cytogenetics, FISH. ESTIMATED BLOOD LOSS: Less than approx 2 milliliters. COMPLICATIONS: NONE DISPOSITION: As above, patient to remain in Heme/Onc Clinic for approx 30 minutes prior to going home. May remove pressure dressing tomorrow AM. Will inform her regarding the bone marrow findings. RTC in about [address] Brian Dyson Hem/Onc documented in this encounter Nursing Notes * Emilia Rai MED ASSIST - 03/05/2024 8:53 AM EST Pt was identified by name and birthdate. All staff in the room agreed. Bone marrow biopsy performedon right side by Dr. Dyson. Patient was given instructions after the procedure * Brittney Rodas LPN - 03/05/2024 7:54 AM EST Patient identifed by name and birthdate Do you have any concerns about pain management for today's visit? No Living Will or Advance Directive for Health Care as noted on the problem list. [facility] is a way you can talk to your provider on line through e-mail. Would you like to sign up? I can activate it for you? ALREADY ACTIVE Filed Vitals: 03/05/24 0750 03/05/24 0751 BP: 94/66 105/70 Pulse: 96 Resp: 20 Temp: 36.1 C (97 F) TempSrc: Tympanic SpO2: 96% Weight: 103.8 kg (228 lb 12.8 oz) Patient was instructed to not get up on the exam table/exam chair until directed and assisted by their provider; patient is to remain seated in the chair/ wheelchair/ exam table/ exam chair for fall prevention and safety reasons. Patient is aware to have assistance to step down off exam table/exam chair with personnel. Patient voiced full comprehension of instructions. documented in this encounter Plan of Treatment Upcoming Encounters Date Type Department Care Team (Late st Contact Info) Description 03/21/2024 11:30 AM EST Cardiac Studies Cardiac Studies [address] [place] [address] 03/23/2024 10:30 AM EST Imaging Radiology [address] [facility] [place] [address] 03/25/2024 1:45 PM EST Imaging Radiology [address] [place] [address] 04/03/2024 11:15 AM EST Office Visit Hematology/Oncology [facility] [address] [facility] [place] [phone] Brian Dyson MD [address] [facility] [place] [address] 04/15/2024 10:20 AM EST Office Visit Nephrology, [facility] [address] [facility] [place] [address] Arvin Sawnn MD [address] [place] [address] [place] [address] 05/20/2024 6:20 PM EST Office Visit Family Medicine [address] [place] [phone] Rahul Tucker MD [address] [place] [address] [place] [address] 07/17/2024 11:15 AM EDT Procedure Only Urology, [facility] [address] [facility] [place] [address] Duglas Tadeo MD [address] [place] [address] Pending Results Name Type Priority Associated Diagnoses Date /Time BONE MARROW PANEL Lab Routine Paraproteinemia 03/05/2024 8:15 AM EST SURGICAL PATHOLOGY Pathology Routine Paraproteinemia 03/05/2024 8:15 AM EST [id number], SERUM Lab Routine Paraproteinemia 03/05/2024 8:37 AM EST APTT Lab Routine Paraproteinemia 03/05/2024 8:37 AM EST FACTOR X (10) CLOTTING ACTIVITY Lab Routine Paraproteinemia 03/05/2024 8:37 AM EST BONE MARROW ASPIRATE LAVENDER (MOLECULAR) - 2 TUB* Lab Routine Paraproteinemia 03/05/2024 8:15 AM EST BONE MARROW ASPIRATE GREEN (FLOW) Lab Routine Paraproteinemia 03/05/2024 8:15 AM EST BONE MARROW ASPIRATE GREEN (REFERRED) Lab Routine Paraproteinemia 03/05/2024 8:15 AM EST BONE MARROW WITH REFLEX TESTING Pathology Routine Paraproteinemia 03/05/2024 8:15 AM EST COMPREHENSIVE BONE MARROW CONSULTATION Pathology Routine Paraproteinemia 03/05/2024 8:15 AM EST Scheduled Orders Name Type Priority Associated Diagnoses Orde r Schedule DIAGNOSTIC BONE MARROW; BIOPSY(IES) AND ASPIRATION(S) Procedures Routine Paraproteinemia Ordered: 03/05/2024 BONE MARROW PANEL Lab Routine Paraproteinemia Expected: 03/05/2024, Expires: 03/05/2025 FACTOR X (10) CLOTTING ACTIVITY Lab Routine Paraproteinemia Expected: 03/05/2024, Expires: 03/05/[address] WHOLE BODY FDG Medical Imaging Routine Paraproteinemia Light chain (AL) amyloidosis (HCC) Multiple myeloma not having achieved remission (HCC) Ordered: 03/05/2024 Scheduled Procedures Name Priority Associated Diagnoses Date/Ti me ESOPHAGOGASTRODUODENOSCOPY ( EGD), FLEXIBLE, TRANSORAL, DIAGNOSTIC Recall Cirrhosis (HCC) Esophageal varices (HCC) Health Maintenance Due Date Last Done Comments DISCUSS TOBACCO CESSATION (REFER TO SMARTSET #1457) 1950 Cologuard 1994 Fecal Occult Blood Test [...] Not on filedocumented as of this encounter Procedures Procedure Name Priority Date/Time Associated Diagnosis Comments DIFFERENTIAL, AUTOMATED STAT 03/05/2024 8:37 AM EST Paraproteinemia BNP (NT-PROBNP) Routine 03/05/2024 8:37 AM EST Paraproteinemia COMPREHENSIVE METABOLIC PANEL STAT 03/05/2024 8:37 AM EST Paraproteinemia CBC STAT 03/05/2024 8:37 AM EST Paraproteinemia PT INR Routine 03/05/2024 8:37 AM EST Paraproteinemia CBC STAT 03/05/2024 8:37 AM EST Paraproteinemia DIFFERENTIAL, TECHNOLOGIST REVIEW Routine 03/05/2024 8:37 AM EST Paraproteinemia documented in this encounter Results * DIFFERENTIAL, TECHNOLOGIST REVIEW (03/05/2024 8:37 AM EST) Blood Venous blood specimen / Unknown Venipuncture / Unknown 03/05/2024 8:37 AM EST 03/05/2024 8:37 AM EST Brian Dyson MD LAB BLOOD ORDERABLES Performing Organization Address City/State/[facility] Co de Phone Number [facility]ATORY [facility] [address] [place] [address] * (ABNORMAL) DIFFERENTIAL, AUTOMATED (03/05/2024 8:37 AM EST) WBC 10.82(H) 4.00 - 10.80 K/uL 03/05/2024 3:03 PM EST [facility] Neutrophils % 77.7(H) 40.0 - 75.0 % 03/05/2024 3:03 PM EST [facility] Lymphocytes % 13.2(L) 18.0 - 42.0 % 03/05/2024 3:03 PM EST [facility] Monocytes % 7.0 1.0 - 11.0 % 03/05/2024 3:03 PM EST [facility] Eosinophils % 0.9 0.0 - 6.0 % 03/05/2024 3:03 PM EST [facility] Basophils % 0.8 0.0 - 2.0 % 03/05/2024 3:03 PM EST [facility] Immature Granulocytes % 0.4 0.0 - 2.0 % 03/05/2024 3:03 PM EST [facility] Absolute Neutrophils 8.40(H) 1.80 - 7.70 K/uL 03/05/2024 3:03 PM EST [facility] Absolute Lymphocytes 1.43 1.00 - 4.80 K/ul 03/05/2024 3:03 PM EST [facility] Absolute Monocytes 0.76 0.00 - 1.10 K/uL 03/05/2024 3:03 PM EST [facility] Absolute Eosinophils 0.10 0.00 - 0.70 K/uL 03/05/2024 3:03 PM EST [facility] Absolute Basophils 0.09 0.00 - 0.20 K/uL 03/05/2024 3:03 PM EST [facility] Absolute Immature Granulocytes 0.04 0.00 - 0.20 K/uL 03/05/2024 3:03 PM EST [facility] Blood Venous blood specimen / Unknown Venipuncture / Unknown 03/05/2024 8:37 AM EST 03/05/2024 8:37 AM EST Brian Dyson MD LAB BLOOD ORDERABLES Performing Organization Address City/State/[facility] Co de Phone Number [facility] [address] [place] [address] * (ABNORMAL) CBC (03/05/2024 8:37 AM EST) WBC 10.82(H) 4.00 - 10.80 K/uL 03/05/2024 2:35 PM EST [facility] RBC 5.13 4.50 - 5.25 M/uL 03/05/2024 2:35 PM EST [facility] HGB 15.5 14.0 - 16.8 g/dL 03/05/2024 2:35 PM EST [facility] HCT 47.9 40.0 - 48.4 % 03/05/2024 2:35 PM EST [facility] MCV 93.4 82.0 - 99.5 fL 03/05/2024 2:35 PM EST [facility] MCH 30.2 27.0 - 34.0 pg 03/05/2024 2:35 PM EST [facility] MCHC 32.4 32.0 - 36.0 g/dL 03/05/2024 2:35 PM EST [facility] RDW 19.1 11.5 - 15.5 % 03/05/2024 2:35 PM EST LABORATORY [facility] PLT 565(H) 140 - 400 K/uL 03/05/2024 2:35 PM EST [facility]ORY [facility] MPV 9.9 6.6 - 11.1 fL 03/05/2024 2:35 PM EST [facility] nRBCs 0 <=0 /100 WBCs 03/05/2024 2:35 PM EST [facility] Blood Venous blood specimen / Unknown Venipuncture / Unknown 03/05/2024 8:37 AM EST 03/05/2024 8:37 AM EST Brian Dyson MD LAB BLOOD ORDERABLES Performing Organization Address [facility] Phone Number LABORATORY [address] [address] * (ABNORMAL) BNP, NT-PRO (03/05/2024 8:37 AM EST) Pathologist [facility] BNP, NT-Pro 1,478(H) <300 pg/mL 03/05/2024 1:52 PM EST [facility]ORY [facility] Blood Venous blood specimen / Unknown Venipuncture / Unknown 03/05/2024 8:37 AM EST 03/05/2024 8:37 AM EST Narrative [facility] - 03/05/2024 1:52 PM EST Exclude Heart Failure: <300 pg/mL Diagnose Heart Failure: Age <50 yr: >450 pg/mL 50-75 yr: >900 pg/mL >75 yr: >1800 pg/mL GFR is 30-59 mL/min: >1200 pg/mL or Age-adjusted values GFR <30 mL/min: do not use, not reliable Prognostic threshold: 1000 pg/mL Brian Dyson MD LAB BLOOD ORDERABLES Performing Organization Address [facility] de Phone Number LABORATORY [address] [address] * PT INR (03/05/2024 8:37 AM EST) Prothrombin Time 14.5 11.6 - 15.2 seconds 03/05/2024 9:07 AM EST [facility] INR 1.1 0.8 - 1.2 03/05/2024 9:07 AM [facility] Blood Venous blood specimen / Unknown Venipuncture / Unknown 03/05/2024 8:37 AM EST 03/05/2024 8:37 AM EST Narrative [facility] 56- - 03/05/2024 9:07 AM EST Warfarin Therapy INR: 2.0-3.0 conventional anticoagulation INR: 2.5-3.5 high intensity anticoagulation Brian Dyson MD LAB BLOOD ORDERABLES [facility] [address] [place] [address] * (ABNORMAL) COMPREHENSIVE METABOLIC PANEL (03/05/2024 8:37 AM EST) BUN 58(H) 6 - 20 mg/dL 03/05/2024 9:50 AM [facility] CREATININE 1.5(H) 0.6 - 1.2 mg/dL 03/05/2024 9:50 AM [facility] 56 EGFR 47(L) >=60 mL/min 03/05/2024 9:50 AM [facility] Comment:eGFR is calculated b ased on the CKD-EPI 2020 equation. SODIUM 143 135 - 146 mmol/L 03/05/2024 9:50 AM [facility] POTASSIUM 4.5 3.5 - 5.1 mmol/L 03/05/2024 9:50 AM [facility] CHLORIDE 110(H) 98 - 107 mmol/L 03/05/2024 9:50 AM [facility] 56 CO2 25 22 - 32 mmol/L 03/05/2024 9:50 AM [facility] 56 ANION GAP 8 7 - 15 mmol/L 03/05/2024 9:50 AM [facility] 56 GLUCOSE 107 70 - 120 mg/dL 03/05/2024 9:50 AM [facility] Albumin 1.5(L) 3.8 - 5.0 g/dL 03/05/2024 9:50 AM [facility] 56 Comment:Results rechecked. AST 65(H) 10 - 50 U/L 03/05/2024 9:50 AM EST [facility] 56- Alkaline Phosphatase 681(H) 35 - 130 U/L 03/05/2024 9:50 AM EST [facility] 56 Bilirubin, Total 0.2 <=1.2 mg/dL 03/05/2024 9:50 AM EST [facility] 56- CALCIUM 8.8 8.4 - 10.2 mg/dL 03/05/2024 9:50 AM [facility] 56 Protein 5.1(L) 6.0 - 8.3 g/dL 03/05/2024 9:50 AM [facility] 56 ALT 27 10 - 50 U/L 03/05/2024 9:50 AM [facility] 56 Blood Venous blood specimen / Unknown Venipuncture / Unknown 03/05/2024 8:37 AM EST 03/05/2024 8:37 AM EST Brian Dyson MD LAB BLOOD ORDERABLES [facility] [address] [place], [place] [address] documented in this encounter Visit Diagnoses Diagnosis Paraproteinemia- Primary Other paraproteinemias Light chain (AL) amyloidosis (HCC) Multiple myeloma not having achieved remission (HCC) Multiple myeloma, without mention of having achieved remission documented in this encounter Care Teams Sweet Potato Disintegrator Relationship Specialty Start Date End Date Rahul Tucker MD [address] [place] [address] [place] [address] PCP - General Family Medicine 08/03/18 documented as of this encounter
--- OUTSIDE RECORDS SUMMARY | 2024-03-14 01:51 | External Medical Summary | Summary of Care ---
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 * Evaluate & Treat - Unlimited Visits (Within 3 days (urgent)) - Authorized Specialty Diagnoses / Procedures Referred By Contac t Referred To Contact Hematology/Oncology / Hematology Oncology Diagnoses IgG monoclonal protein disorder Arvin Swann MD [address] [place] [address] Referral ID Status Reason Start Date Expiration Date Visits Requested Visits Authorized [id number] Authorized Specialty Services Required 4 [phone] Encounter Details Date Type Department Care Team (Late st Contact Info) Description 03/01/2024 12:15 PM EDT Office Visit Hematology/Oncology [address] [place] [address] [place] [phone] Brian Dyson MD [address] [place] [address] Paraproteinemia* Allergies Active Allergy Reactions Criticality Noted Date Comments Azithromycin Hives 12/10/2010 documented as of this encounter (statuses as of 03/01/2024) Medications Medication Sig Dispensed Refills Start Date [...] the morning. 90 Tablet 3 02/28/2024 Active documented as of this encounter (statuses as of 03/01/2024) Active Problems Problem Noted Date Diagnosed Date [...] as of this encounter (statuses as of 03/01/2024) Resolved Problems Problem Noted Date Diagnosed Date Resolved Date Carpal tunnel syndrome 06/17/201402/08 Allergic rhinitis 06/17/2014 02/08/2018 Adjustment disorder with depressed mood 12/10/2013 07/20/2017 Eczema 06/22/2012 07/20/2017 Epileptic seizure 12/10/2010 08/16/2018 documented as of this encounter (statuses as of 03/01/2024) Immunizations Name Administration Dates Next Due Pneumococcal Conjugate Vacc, 13 Valent (Prevnar) 06/17/2014 Pneumococcal Conjugate Vacci ne, 20-valent ([id number]) 02/15/2022 Pneumococcal Polysaccharide PPV23 (Pneumovax) 05/19/2016 Seasonal [...] Sign Reading Time Taken Comments Blood Pressure 101/69 03/01/2024 12:01 PM EDT Pulse 88 03/01/2024 12:00 PM EDT Temperature 36.3 C (97.4 F) 03/01/2024 12:00 PM E DT Respiratory Rate - - Oxygen Saturation 93% 03/01/2024 12:00 PM EDT Inhaled Oxygen Concentration - - Weight 103.4 kg (228 lb) 03/01/2024 12:00 PM EDT Height 177.8 cm (5' 10") 03/01/2024 12:00 PM EDT Body Mass Index 32.71 03/01/2024 12:00 PM EDT documented in this encounter Progress Notes * Brian Dyson MD - 03/01/2024 12:15 PM EDT Hematology/Oncology Outpatient Consult Note [facility] [address] [facility] [place] [address] DRE VERA MR # [id number] :1950 73 years old male, REASON FOR CONSULTATION: Consultation for Dre Hitchcock Jody requested by Dr. 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 CURRENT TREATMENT: Planning for bone marrow next week. DIAGNOSTIC WORKUP: He says that he had a COVID-19 infection earlier in March of 2023 and he is not feeling quite well since then. In June of 2023, he had low blood pressure, he was passing out, he was seen at [facility] ER, CT head was unremarkable, CT chest with PE protocol on 06/14/2023: Unremarkable, normal cardiac size noted, no pericardial effusion. No PE. Subcentimeter mediastinal lymph nodes noted. Once again he was admitted in October 2023 for increasing leg edema, there was no evidence of DVT on Doppler evaluation CT scan of the abdomen pelvis with contrast on 11/19/2023 at [facility] showed findings suggestive of nodular counter of the liver consistent with cirrhosis, no liver or spleen masses. Blood workup showed normal WBC, normal hemoglobin level, Platelet count is slightly higher side around 450 to [id number] range. Urine showed significant protein. (4+). PT 13.5, INR 1.3, D-dimer 1800 (June 2023). BNP --> 416 (11/12/2023) --> 167 ( 02/07/2024). Liver function test showed normal AST, ALT but alkaline phosphatase gradually increased from normalvalue of 83 in June 2023 --> 150 in October 2019 4 to 370 o 02/07/[address] scan of the liver on 02/15/2024 showed nodular liver but enlargement of the liver with liver size measuring about 21 cm no splenomegaly. Small volume ascites and small gastric varices noted. Urine for protein/creatinine ratio --> 10,847 (02/13/2024). Blood workup on 01/19/2024: -BUN/Creat: 33/1.3, AST 54, ALT 37, alkaline phosphatase 400, bilirubin level less than 0.2. Albumin 2.1. Total protein 4.5. IgG 1067, IgA 207, IgM 106 SPEP showed IgG kappa paraprotein, M spike--> to 0.74 g/dL. Free kappa light chain --> 106, free lambda light chain--> 24.9, Calcium of 4.25 (02/19/2024). -Ferritin level --> 69. Acute hepatitis serology --> negative. OTHER IMPORTANT HISTORY: He is on Lasix 80 mg every day. He is on midodrine for hypotension -he had Sousa's catheter, currently he self catheterize 3 times a day. -history of smoking present -drinks alcohol socially. History of seizure, he was on phenobarbital, scan about 3 months back when he was noticed to have some abnormal liver findings. No seizure since 1978 INTERVAL HISTORY: He has come the clinic for the initial evaluation, he came to clinic in the wheelchair, he says that since last 9 months or so he is not feeling well, ambulating with the help of the wheelchair, has increasing bilateral leg edema, distention of the abdomen, weight loss noted, current weight around 228 lb, no headache, no bleeding from any sites. No fever. No infections. Denies any abdominal pain.Shortness of breath on minimal exertion. Blood pressure has remained on the lower side. Had few episodes of syncope in the past. REVIEW OF SYSTEMS: GENERAL: Weight loss, feeling weak and tired, no fever, sweats or chills. SKIN: No skin rash, no bruising. HEAD: No new or increasing headache, dizziness present. EYES: No recent change in the vision, no diplopia, EARS: No earache no tinnitus, NOSE: No epistaxis, No nasal discharge or stuffiness, MOUTH: No sores, no dysphagia, no hoarseness of voice, NECK: No lumps, No swelling in thyroid area. No stiffness. PULMONARY: No cough, shortness of breath, no hemoptysis, no chest pain, No wheezing. CARDIOVASCULAR: No anginal chest pain, no PND, no orthopnea. No palpitation, leg edema. No syncope. GASTROINTESTINAL: No abdominal pain, no nausea or vomiting. No diarrhea, No constipation. No blood in stool or black tarry stools. No abdominal distention. UROLOGIC: Had hematuria. MUSCULOSKELETAL: Chronic back pain, he says that he had spine surgery in the past. He is not on pain medication on a regular basis. HEMATOLOGIC: No anemia, no bleeding disorder, No bruising. NEUROLOGIC: History of seizures, no focal weakness, no speech difficulty, No memory disturbances. No tingling or numbness of the extremities. PSYCHIATRIC: No depression. No anxiety. No psychosis. Past Medical History: Diagnosis Date Buerger's disease (HCC) Cirrhosis (HCC) Dyslipidemia, goal LDL below 130 HTN, goal below 140/90 Other forms of epilepsy and recurrent seizures without mention of intractable epilepsy 05/01/1970 While in the service--Last seizure in 1978 Other pulmonary embolism and infarction 05/01/1985 10 days after back surgery Past Surgical History: Procedure Laterality Date CARPAL TUNNEL SURGERY 2011 right 2011 COLONOSCOPY 06/03/2015 PR--polyps--benign DENTAL SURGERY PROCEDURE NEC [place] teeth removed EGD, FLEXIBLE, DIAGNOSTIC 12/11/2023 ESOPHAGOGASTRODUODENOSCOPY (EGD), FLEXIBLE, TRANSORAL, DIAGNOSTIC performed by Dolores Edmonds MD at ENDOSCOPY [facility] PATIENT EDU, LUMBAR LAMINECTOMY 1986 Back surgery at [facility] ARTHROPLASTY GLENOHUMERAL JOINT TOTAL SHOULDER Right 11/2021 Dr. Correia RE-REPAIR DETACHED RETINA Both eyes REPAIR ARM TENDON/MUSCLE 2007 Right rotator cuff repair REPAIR RUPTURED ROTATOR CUFF, ACUTE Left 04/27/2017 Dr. Hui Current Outpatient Medications Medication Sig Dispense Refill ASPIRIN 81 MG PO CHEW One pill by mouth once a day with food 100 Tab 5 PHENOBARBITAL 32.4 MG PO TABS 5 tabs daily (Patient not taking: Reported on 02/09/2024) 150 Tab 11 Vyzulta 0.024 % Ophthalmic Solution (Latanoprostene Bunod) Instill into eye. Pantoprazole Sodium 40 MG Oral Tablet Delayed Release (Protonix) Take 1 Tablet by mouth in the morning. (Patient not taking: Reported on 02/09/2024) Potassium Chloride Rosamaria ER 10 MEQ Oral Tablet Extended Release Take 1 Tablet by mouth every other day. (Patient not taking: Reported on 02/09/2024) Midodrine HCl 10 MG Oral Tablet (Proamatine) Take 1 Tablet by mouth in the morning and 1 Tablet at noon and 1 Tablet in the evening. Furosemide 40 MG Oral Tablet (Lasix) Take 1 Tablet by mouth in the morning. 90 Tablet 3 Tamsulosin HCl 0.4 MG Oral Capsule (Flomax) Take 1 Capsule by mouth in the morning. Taking every other day. (Patient not taking: Reported on 02/28/2024) 90 Capsule 3 Finasteride 5 MG Oral Tablet (Proscar) Take 1 Tablet by mouth in the morning. 90 Tablet 3 No current facility-administered medications for this visit. Family History Problem Relation Name Age of Onset Neurological Disorder Mother Parkinson's Heart Disorder Father Musculo-skeletal Disorder Brother Back problems Other (Other) Son from overdose Social History Socioeconomic History Marital status: Spouse name: Not on file Number of children: Not on file Years of education: Not on file Highest education level: Not on file Occupational History Not on file Tobacco Use Smoking status: Every Day Current packs/day: 0.50 Average packs/day: 0.5 packs/day for 11.0 years (5.5 ttl pk-yrs) Types: Cigarettes, Cigars Smokeless tobacco: Former Quit date: 01/08/2015 Tobacco comments: Quit for 12 years Vaping Use Vaping status: Never Used Substance and Sexual Activity Alcohol use: Yes Drug use: No Sexual activity: Not on file Other Topics Concern Not on file Social History Narrative Not on file Social Determinants of Health Financial Resource Strain: Not on file Food Insecurity: No Food Insecurity (07/29/2019) Hunger Vital Sign Worried About Running Out of Food in the Last Year: Never true Ran Out of Food in the Last Year: Never true Transportation Needs: Not on file Social Connections: Unknown (02/28/2024) Social Connections How often do you feel lonely or isolated from those around you? (Adult - for ages 18 years and over): Not on file Housing Stability: Not on file On Exam: BP 101/69 (BP Site: Left Arm, BP Position: Standing, BP Cuff Size: Regular) | Pulse 88 | Temp 36.3 C (97.4 F) (Tympanic) | Ht 1.778 m (5' 10") | Wt 103.4 kg (228 lb) | SpO2 93% | BMI 32.71 kg/m| BSA 2.26 m Constitutional: Patient is alert, cooperative and oriented x 3. Well built man, Patient is in no acute distress. HEENT:No icterus, no pallor, Throat and pharynx normal. Sinuses are non-tender. Neck: Supple and without lymphadenopathy or masses. No JVD. No Palpable supraclavicular lymph nodes. Lungs: Clear to auscultation. Bilateral symmetric air entry. No wheezing or rhonchi. Cardiovascular: Normal heart sounds, no murmurs.Regular rate and rhythm. Abdomen: s/o free fluid, hepatomegaly +, no splenomegaly. Bowel sounds are normal. Neurological: No gross focal neurological deficit; Extremities: No finger clubbing, No cyanosis. leg edema. Skin:: No skin rash. SPINE: No spinal or paraspinal tenderness. LABS: As described below. IMAGING: As described above. ASSESSMENT AND PLAN: 73-year-old male, who has progressively increasing shortness of breath, syncope, hypotension, foundto have hepatomegaly, liver size about 21 cm, no splenomegaly, nephrotic range proteinuria, bilateral leg edema, declining performed status, ambulating with the help of the wheelchair. Additional blood workup shows IgG kappa paraprotein in the blood. No anemia, serum creatinine around 1.3 mg/dL, no hypercalcemia. Pro BNP was slightly on the high side around 450 range earlier. Overall clinical picture is suspicious for underlying amyloidosis. I would like to proceed with bone marrow early next week, will get additional blood workup at the same time when he comes for the bone marrow. -CBCD, comprehensive metabolic panel. - echocardiogram ( already ordered). - PET-CT scan -pro BNP, troponin T. -[id number] -PT, PTT, factor 10 level. Will decide about further management after reviewing bone marrow findings. Thanks for the consultation. Dr. Brian Dyson Hem/Onc (This note was completed using the dictation program Fluency Direct. As such, there may be misspellings word substitutions, or other variations that should not change the essence of the clinical content of this encounter note. If there is need for further clarification, please direct questions to the provider listed above.) documented in this encounter Nursing Notes * Yaima Urias CMA - 03/01/2024 12:01 PM EDT Patient identifed by name and birthdate Do you have any concerns about pain management for today's visit? No Living Will or Advance Directive for Health Care as noted on the problem list. [facility] is a way you can talk to your provider on line through e-mail. Would you like to sign up? I can activate it for you? ALREADY ACTIVE Filed Vitals: 03/01/24 1200 03/01/24 1201 BP: 96/62 101/69 Pulse: 88 Temp: 36.3 C (97.4 F) TempSrc: Tympanic SpO2: 93% Weight: 103.4 kg (228 lb) Height: 1.778 m (5' 10") Patient was instructed to not get up on the exam table/exam chair until directed and assisted by their provider; patient is to remain seated in the chair/ wheelchair/ exam table/ exam chair for fall prevention and safety reasons. Patient is aware to have assistance to step down off exam table/exam chair with personnel. Patient voiced full comprehension of instructions. Patient states that he does get lightheaded at times. documented in this encounter Plan of Treatment Upcoming Encounters Date Type Department Care Team (Late st Contact Info) Description 03/05/2024 8:00 AM EST Office Visit Hematology/Oncology [facility] [address] [facility] [place] [phone] Brian Dyson MD [address] [facility] [place] [address] 03/23/2024 10:30 AM EST Imaging Radiology [facility] [facility] [address] [facility] [place] [address] 04/15/2024 10:20 AM EST Office Visit Nephrology, [facility] [address] [facility] [place] [address] Arvin Swann MD 400 [facility] [place] [address] 05/20/2024 6:20 PM EST Office Visit Family Medicine [address] [phone] Rahul Tucker MD [address] [place] [address] [place] [address] 07/17/2024 11:15 AM EDT Procedure Only Urology, [facility] [address] [facility] [place] [address] Duglas Tadeo MD [address] [place] [address] [place] [address] Scheduled Procedures Name Priority Associated Diagnoses Date/Ti me ESOPHAGOGASTRODUODENOSCOPY ( EGD), FLEXIBLE, TRANSORAL, DIAGNOSTIC Recall Cirrhosis (HCC) Esophageal varices (HCC) Scheduled Referrals Name Type Priority Associated Diagnoses Orde r Schedule HEMATOLOGY/ONCOLOGY REFERRAL OP Referral Within 3 days (urgent) IgG monoclonal protein disorder Ordered: 02/20/2024 Health Maintenance Due Date Last Done Comments DISCUSS TOBACCO CESSATION (REFER TO SMARTSET #[id number]) 1950 Cologuard 1994 Fecal Occult Blood Test [...] as of this encounter Visit Diagnoses Diagnosis Paraproteinemia- Primary Other paraproteinemias documented in this encounter Care Teams Aerial Lineman Relationship Specialty Start Date End Date Rahul Tucker MD [address] [place] [address] [place] [address] PCP - General Family Medicine 08/03/18 documented as of this encounter
--- OUTSIDE RECORDS SUMMARY | 2024-03-14 01:51 | External Medical Summary ---
Author Name Unknown Address Unknown Organization : Laboratory Report Ordering Provider Test Date Status LYNNETTEYOLA 03/05/2024 08:37:58 Final Observation Date Value Abnormality Reference (Units ) Status Beta-2 Microglobulin 03/05/2024 08:37:58 5.76 Above high normal <=2.51 (mg/L) Final Test Performed at:
[facility]
[address] [facility] [place] [address]
Hitesh Treviño M.D., Ph.D.,Director of Laboratories Performing Location
--- OUTSIDE RECORDS SUMMARY | 2024-03-14 01:51 | External Medical Summary ---
Author Name Unknown Address Unknown Organization K01:LABOR[facility]ORY [facility] - [address] [facility] [place] [address] Laboratory Report Ordering Provider Test Date Status KACY NORTON 03/06/2024 14:37:53 Final Observation Date Value Abnormality Reference (Units ) Status Color of Urine by Auto 03/06/2024 14:37:53 Yellow Colorless, Light Yellow, Yellow, Dark Yellow Final Clarity, Urine 03/06/2024 14:37:53 Clear Clear Final Glucose [Mass/volume] in Urine by Automated test strip 03/06/2024 14:37:53 Negative Negative (mg/dL) Final Bilirubin.total [Presence] in Urine by Automated test strip 03/06/2024 14:37:53 Negative Negative Final Ketones [Mass/volume] in Urine by Automated test strip 03/06/2024 14:37:53 Negative Negative (mg/dL) Final Specific gravity, Urine 03/06/2024 14:37:53 1.016 1.003-1.030 Final Hemoglobin [Presence] in Urine by Automated test strip 03/06/2024 14:37:53 Small Abnormal Negative Final pH, Urine 03/06/2024 14:37:53 6.5 5.0-7.5 (Units) Final Protein [Mass/volume] in Urine by Automated test strip 03/06/2024 14:37:53 >300 Abnormal Negative (mg/dL) Final Urobilinogen [Mass/volume] in Urine by Automated test strip 03/06/2024 14:37:53 Normal Normal (mg/dL) Final Nitrite [Presence] in Urine by Automated test strip 03/06/2024 14:37:53 Negative Negative Final Leukocyte esterase [Presence] in Urine by Automated test strip 03/06/2024 14:37:53 Negative Negative Final RBC, Urine 03/06/2024 14:37:53 0-2 0-2 (/HPF) Final WBC, Urine 03/06/2024 14:37:53 3-5 Abnormal 0-2 (/HPF) Final Bacteria [#/area] in Urine sediment by Microscopy high power field 03/06/2024 14:37:53 26-50 Abnormal 0-25 (/HPF) Final Hyaline casts, Urine 03/06/2024 14:37:53 1-4 Abnormal None (/LPF) Final Granular casts [#/area] in Urine sediment by Microscopy low power field 03/06/2024 14:37:53 10-19 Abnormal None (/LPF) Final Performing Location LABOR[facility]ORY [facility] - [facility] [address] [address]
--- OUTSIDE RECORDS SUMMARY | 2024-03-14 01:51 | External Medical Summary ---
Author Name Unknown Address Unknown Organization K01:LABORATORY [facility] - [address] [place] [address] Laboratory Report Ordering Provider Test Date Status YOLA CHURCH 03/05/2024 08:37:37 Final Observation Date Value Abnormality Reference (Units ) Status WBC, Total 03/05/2024 08:37:37 10.82 Above high normal 4.00-10.80 (K/uL) Final RBC 03/05/2024 08:37:37 5.13 4.50-5.25 (M/uL) Final Hemoglobin 03/05/2024 08:37:37 15.5 14.0-16.8 (g/dL) Final HCT 03/05/2024 08:37:37 47.9 40.0-48.4 (%) Final MCV 03/05/2024 08:37:37 93.4 82.0-99.5 (fL) Final MCH 03/05/2024 08:37:37 30.2 27.0-34.0 (pg) Final MCHC 03/05/2024 08:37:37 32.4 32.0-36.0 (g/dL) Final RDW 03/05/2024 08:37:37 19.1 11.5-15.5 (%) Final Platelets 03/05/2024 08:37:37 565 Above high normal 140-400 (K/uL) Final MPV 03/05/2024 08:37:37 9.9 6.6-11.1 (fL) Final Nucleated erythrocytes/100 leukocytes [Ratio] in Blood by Automated count 03/05/2024 08:37:37 0 <=0 (/100 WBCs) Final Performing Location LABORATORY [facility] - [address] [place] [address]
--- OUTSIDE RECORDS SUMMARY | 2024-03-14 01:52 | External Medical Summary | Summary of Care ---
Author Name Unknown Organization [facility] Address [address] [facility] [address] Phone [phone] Care Team Providers Care Machine Builder Name Role Phone Evert Tucker MD Primary Care Provide r Reason for Visit * Reason Comments NEW PATIENT * Evaluate & Treat - Unlimited Visits (Within 3 days (urgent)) - Authorized Specialty Diagnoses / Procedures Referred By David t Referred To Contact Urology Diagnoses Acute on chronic urinary retention Arvin Swann MD [address] [facility] [place] [address] Referral ID Status Reason Start Date Expiration Date Visits Requested Visits Authorized [id number] Authorized Specialty Services Required 4 [phone] Encounter Details Date Type Department Care Team (Late st Contact Info) Description 02/28/2024 9:30 AM EDT Office Visit Urology, [facility] [address] [facility] [place] [address] Duglas Tadeo MD [address] [place] [address] BPH with obstruction/lower urinary tract symptoms*; Retention of urine; Renal cysts, acquired, bilateral Allergies Active Allergy Reactions Criticality Noted Date Comments Azithromycin Hives 12/10/2010 documented as of this encounter (statuses as of 02/28/2024) Medications Medication Sig Dispensed Refills Start Date [...] as of this encounter (statuses as of 02/28/2024) Active Problems Problem Noted Date Diagnosed Date [...] as of this encounter (statuses as of 02/28/2024) Resolved Problems Problem Noted Date Diagnosed Date Resolved Date Carpal tunnel syndrome 06/17/201402/08 Allergic rhinitis 06/17/2014 02/08/2018 Adjustment disorder with depressed mood 12/10/2013 07/20/2017 Eczema 06/22/2012 07/20/2017 Epileptic seizure 12/10/2010 08/16/2018 documented as of this encounter (statuses as of 02/28/2024) Immunizations Name Administration Dates Next Due Pneumococcal Conjugate Vacc, 13 Valent (Prevnar) 06/17/2014 Pneumococcal Conjugate Vacci ne, 20-valent ([id number]) 02/15/2022 Pneumococcal Polysaccharide PPV23 (Pneumovax) 05/19/2016 Seasonal [...] on file documented as of this encounter Progress Notes * Duglas Tadeo MD - 02/28/2024 9:30 AM EDT [id number] PCP: EVERT TUCKER [address] [place] [address] [place] [address] [phone] Dre Vera is a comorbid 73 year old male, who presents in referral for evaluation of urinary retention. Patient's recent visit with Nephrology is appreciated. Patient's history of orthostasisassociated with tamsulosin use is also noted. PVR in office 2 weeks ago was over 500 mL. Patient was recommended to initiate CIC which was performed by his who is also a nurse. She notes low urine output and therefore placed a Alcaraz catheter which has been in place for a couple of weeks. Interestingly, on catheter placement, minimal urine output was also noted. notes that this took place with the patient was still taking his poorly tolerated tamsulosin therefore might have been emptying better. Patient's diagnosis of hepatic dysfunction is noted. They notes difficulties with orthostasis. Patient notes a PSA of "approximately 5" from [facility] in the last year. BPH: Patient is being seen for BPH today. He has had the following symptoms: need for catheter placementand incomplete emptying. Severity is high. He has tried tamsulosin and indwelling alcaraz. Side effects of orthostasis with tamsulosin. He has previously had no surgery done. Problem has been present for years. Problem is getting worse. PSA Results: Lab Results Component Value Date/Time PSA-OUTSIDE LAB 1.60 03/16/2015 12:00 AM PSA-OUTSIDE LAB 1.90 02/04/2013 12:00 AM PSA-OUTSIDE LAB 1.2 04/19/2011 12:00 AM Creatinine Results: Lab Results Component Value Date/Time CREATININE - [facility] 1.3 (H) 01/19/2024 09:58 AM CREATININE - [facility] 1.1 12/25/2023 10:02 AM CREATININE - [facility] 1.2 12/18/2023 09:58 AM CREATININE - [facility] 1.03 04/02/2019 12:00 AM CREATININE - [facility] 1.0 02/27/2018 12:00 AM CREATININE - [facility] 1.2 12/06/2017 12:26 PM CREATININE - [facility] 1.0 03/01/2017 12:00 AM CREATININE - [facility] 0.9 03/08/2012 09:00 AM CREATININE, RANDOM URINE - [facility] 334 02/13/2024 03:27 PM CREATININE, RANDOM URINE - [facility] 159 07/26/2022 10:10 AM CREATININE, RANDOM URINE - [facility] 89 03/01/2019 10:13 AM Current Outpatient Medications Medication Sig Dispense Refill [...] Taking every other day. 90 Capsule 3 No current facility-administered medications for this visit. Review of patient's allergies indicates: Allergen Reactions Zithromax [Azithromycin] Hives Social History: Social History Tobacco Use Smoking status: Every Day Current packs/day: 0.50 Average packs/day: 0.5 packs/day for 11.0 years (5.5 ttl pk-yrs) Types: Cigarettes, Cigars Smokeless tobacco: Former Quit date: 01/08/2015 Tobacco comments: Quit for 12 years Substance Use Topics Alcohol use: Yes Vaping/E-Cigarette Use Vaping/E-Cigarette Use Never User Vaping/E-Cigarette Substances Vaping/E-Cigarette Devices Family History Problem Relation Name Age of Onset Neurological Disorder Mother Parkinson's Heart Disorder Father Musculo-skeletal Disorder Brother Back problems Other (Other) Son from overdose Past Surgical History: Procedure Laterality Date CARPAL TUNNEL SURGERY 2011 right 2011 [facility]ONOSCOPY [facility]/2015 [facility]benign DENTAL SURGERY PROCEDURE [facility] [place] teeth removed EGD, FLEXIBLE, DIAGNOSTIC 12/11/2023 ESOPHAGOGASTRODUODENOSCOPY (EGD), FLEXIBLE, TRANSORAL, DIAGNOSTIC performed by Dolores Edmonds MD at ENDOSCOPY [facility] PATIENT EDU, LUMBAR LAMINECTOMY 1985 Back surgery at [facility] ARTHROPLASTY GLENOHUMERAL JOINT TOTAL SHOULDER Right 11/2021 Dr. Correia RE-REPAIR DETACHED RETINA Both eyes REPAIR ARM TENDON/MUSCLE 2007 Right rotator cuff repair REPAIR RUPTURED ROTATOR CUFF, ACUTE Left 04/27/2017 Dr. 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 Constitutional: General: He is not in acute distress. Appearance: He is not ill-appearing or toxic-appearing. Comments: Using wheelchair HENT: Head: Normocephalic and atraumatic. Right Ear: External ear normal. Left Ear: External ear normal. Nose: Nose normal. Mouth/Throat: Mouth: Mucous membranes are moist. Eyes: Extraocular Movements: Extraocular movements intact. Cardiovascular: Pulses: Normal pulses. Heart sounds: No murmur heard. Pulmonary: Effort: Pulmonary effort is normal. No respiratory distress. Abdominal: General: There is no distension. Palpations: Abdomen is soft. Skin: Coloration: Skin is not pale. Neurological: Motor: Weakness present. Gait: Gait abnormal. Psychiatric: Behavior: Behavior normal. Thought Content: Thought content normal. Impression/Plan: 73 yo male with questionable retention. The possibility that the patient's postvoid residual outside medical sales representative ascitic fluid is reviewed. In any case, I think it would be fallon to restart CIC rather than indwelling alcaraz. Can perform CIC QID with a 16 fr straight catheter. Will arrange for cystoscopy to evaluate lower urinary tract anatomy. Will defer workup for the patient's ongoing issues to Nephrology and Hematology Oncology. Will startfinasteride for BPH control without associated orthostasis. Mechanism of action and time until onset of clinical effect is reviewed. Will see the patient back at the time of cystoscopy, contact us sooner with any interval difficulties. Above content is personally reviewed. Patient vocalizes good und erstanding of the treatment plan. Duglas Tadeo MD 8:00 AM 02/28/2024 documented in this encounter Nursing Notes * Libby De La Cruz LPN - 02/28/2024 9:13 AM EDT New pt. Patient presents with spouse. Postvoid residual 538 mL 02/12 at nephro appt, instructed to CIC TID. Patient's spouse states unable to get much urine via straight cath. Indwelling alcaraz x 2 weeks, placed by . documented in this encounter Plan of Treatment Upcoming Encounters Date Type Department Care Team (Late st Contact Info) Description 03/01/2024 12:15 PM EDT Office Visit Hematology/Oncology [employer] [facility] [place] [phone] Brian Dyson MD [address] [facility] [place] [address] 04/15/2024 10:20 AM EST Office [facility] [place] [address] Arvin Swann MD [address] [place] [address] [place] [address] 05/20/2024 6:20 PM EST Office Visit [address] [phone] Evert Tucker MD [address] [place] [address] [place] [address] 07/17/2024 11:15 AM EDT Procedure Only Urology, [facility] [address] [place] [address] Duglas Tadeo MD [address] [place] [address] Health Maintenance Due Date Last Done Comments DISCUSS TOBACCO CESSATION (REFER TO SMARTSET #[id number]) 1949 Cologuard 1994 Fecal Occult Blood Test [...] as of this encounter Visit Diagnoses Diagnosis BPH with obstruction/lower urinary tract symptoms- Primary Hypertrophy of prostate with urinary obstruction and other lower urinary tract symptoms (LUTS) Retention of urine Retention of urine, unspecified Renal cysts, acquired, bilateral Acquired cyst of kidney documented in this encounter Care Teams Machine Builder Relationship Specialty Start Date End Date Evert Tucker MD [address] [place] [address] [place] [phone] PCP - General Family Medicine 08/03/18 documented as of this encounter
--- OUTSIDE RECORDS SUMMARY | 2024-03-14 01:52 | External Medical Summary ---
Author Name Unknown Address Unknown Organization K01:[facility] - [facility] [address] [place] [address] Laboratory Report Ordering Provider Test Date Status BIBI MARLOW 02/19/2024 13:21:55 Final Observation Date Value Abnormality Reference (Units) Status PARAPROTEIN NORMAL/ABNORMAL 02/19/2024 13:21:55 Abnormal Abnormal Normal Final Protein, Urine 02/19/2024 13:21:55 436 (mg/dL) Final Albumin / Total protein, Urine 02/19/2024 13:21:55 66.7 (%) Final Gamma globulin / protein (UPEP) 02/19/2024 13:21:55 33.3 (%) Final Urine Protein Electrophoresis (UPEP) 02/19/2024 13:21:55 7.8 (%) Final Protein Fractions [Interpretation] in Urine by Electrophoresis Narrative 02/19/2024 13:21:55 Abnormal. Paraprotein present. See urine immunofixation results. Final Performing Location [facility] - [facility] [address] [place] [address]
--- OUTSIDE RECORDS SUMMARY | 2024-03-14 01:52 | External Medical Summary | Summary of Care ---
Author Name Unknown Organization [facility] Address [address] [facility] [address] Phone [phone] Care Team Providers Care Naturopathic Doctor Name Role Phone Rahul Tucker MD Primary Care Provide r Reason for Referral * Evaluate & Treat - Unlimited Visits (Within 3 days (urgent)) - Authorized Specialty Diagnoses / Procedures Referred By David sharp Referred To Contact Urology Diagnoses Acute on chronic urinary retention Arvin Swann MD [address] [place] [phone] Referral ID Status Reason Start Date Expiration Date Visits Requested Visits Authorized [id number] Authorized Specialty Services Required 4 [phone] Question Answer Referral Priority Within 3 days (urgent) Where should this appointment be scheduled? [facility] What is the patient being referred for? BPH - urinary retention Comments Has acute urinary retention Reason for Visit * Reason Onset Date Comments Outpatient Testing 02/15/2024 Encounter Details Date Type Department Care Team (Late st Contact Info) Description 02/15/2024 Telephone Nephrology, [place] [address] [place] [address] Arvin Swann MD [address] [place] [address] Outpatient Testing Allergies Active Allergy Reactions Criticality Noted Date Comments Azithromycin Hives 12/10/2010 documented as of this encounter (statuses as of 02/16/2024) Medications Medication Sig Dispensed Refills Start Date [...] other day. 90 Capsule 3 02/13/2024 Active documented as of this encounter (statuses as of 02/16/2024) Active Problems Problem Noted Date Diagnosed Date 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 08/16/2018 Tobacco use disorder 06/17/2014 Peripheral vascular disease 03/05/2012 HTN, goal below 140/90 12/10/2010 Dyslipidemia, goal LDL below 100 12/10/2010 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 (statuses as of 02/16/2024) Resolved Problems Problem Noted Date Diagnosed Date Resolved Date Carpal tunnel syndrome 06/17/201402/08 Allergic rhinitis 06/17/2014 02/08/2018 Adjustment disorder with depressed mood 12/10/2013 07/20/2017 Eczema 06/22/2012 07/20/2017 Epileptic seizure 12/10/2010 08/16/2018 documented as of this encounter (statuses as of 02/16/2024) Immunizations Name Administration Dates Next Due Pneumococcal Conjugate Vacc, 13 Valent (Prevnar) 06/17/2014 Pneumococcal Conjugate Vacci ne, 20-valent ([id number]) 02/15/2022 Pneumococcal Polysaccharide PPV23 (Pneumovax) 05/19/2016 Seasonal [...] encounter Miscellaneous Notes * Telephone Encounter - Yelena Corona LPN - 02/16/2024 4:25 PM EDT Let patient know to go for blood work tomorrow. PT IS AWARE TO HAVE LABS PER DR SWANN. MAY HAVE MONDAY, BUT MORE LIKELY ON MONDAY. * Telephone Encounter - Arvin Swann MD - 02/15/2024 5:11 PM EDT Called patient to discuss massive proteinuria of 10 g. I have ordered SPEP UPEP. catheterized patient and drain 2.2 L of urine. I placed Urology referral for acute urinary retention. They stopped Flomax due to hypotension. Patient says the edema has subsided on the Lasix 40 mg daily. Arvin Swann MD documented in this encounter Plan of Treatment Upcoming Encounters Date Type Department Care Team (Late st Contact Info) Description 04/15/2024 10:20 AM EST Office Visit Nephrology, [address] [place] [address] Arvin Swann MD [address] [facility] [place] [address] 05/20/2024 6:20 PM EST Office Visit Family Medicine [address] [phone] Rahul Tucker MD [address] [place] [address] [place] [address] 09/10/2024 9:30 AM EDT Office Visit Urology, [address] [place] [address] Duglas Tadeo MD [address] [place] [address] Scheduled Orders Name Type Priority Associated Diagnoses Orde r Schedule SERUM PROTEIN ELECTROPHORESIS REFLEX PROFILE Lab Routine Acute on chronic urinary retention Expected: 02/16/2024, Expires: 02/14/2025 URINE PROTEIN ELECTROPHORESIS REFLEX PROFILE, RANDOM URINE Lab Routine Acute on chronic urinary retention Expected: 02/15/2024, Expires: 02/14/2025 SERUM FREE LIGHT CHAINS Lab Routine Acute on chronic urinary retention Expected: 02/16/2024, Expires: 02/14/2025 Scheduled Referrals Name Type Priority Associated Diagnoses Orde r Schedule ADULT/PEDS UROLOGY REFERRAL OP Referral Within 3 days (urgent) Acute on chronic urinary retention Ordered: 02/15/2024 Health Maintenance Due Date Last Done Comments DISCUSS TOBACCO CESSATION (REFER TO SMARTSET #[id number]) 1949 Cologuard 1994 Fecal Occult Blood Test [...] Additional history exists Albumin/Creatinine Ratio 07/26/2025 07/26/2022, 1105/2018 Colonoscopy 06/23/2030 06/23/2020, 06/03/2015 Colorectal Cancer Screening [...] as of this encounter Visit Diagnoses Diagnosis Acute on chronic urinary retention- Primary documented in this encounter Additional Health Concerns Infection Onset Date Last Indicated Resolved Time Gastrointestinal Rule-Out 02/13/2024 02/13/2024 1:04 PM EDT documented as of this encounter Care Teams Naturopathic Doctor Relationship Specialty Start Date End Date Rahul Tucker MD [address] [place] [address] [place] [address] PCP - General Family Medicine 08/03/18 documented as of this encounter
--- OUTSIDE RECORDS SUMMARY | 2024-03-14 01:52 | External Medical Summary | Summary of Care ---
Author Name Unknown Organization [facility] Address [address] [facility] [place] [address] Phone [phone] Care Team Providers Care Negotiator Sales Name Role Phone Rahul Tucker MD Primary Care Provide r Reason for Visit * Reason Comments Outpatient Testing Encounter Details Date Type Department Care Team (Late st Contact Info) Description 02/19/2024 1:20 PM EDT Laboratory Laboratory [address] [place] [phone] [facility] Lab [address] [place] [address] Acute on chronic urinary retention Allergies Active Allergy Reactions Criticality Noted Date Comments Azithromycin Hives 12/10/2010 documented as of this encounter (statuses as of 02/20/2024) Medications Medication Sig Dispensed Refills Start Date [...] as of this encounter (statuses as of 02/20/2024) Active Problems Problem Noted Date Diagnosed Date 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 08/16/2018 Tobacco use disorder 06/17/2014 Peripheral vascular disease 03/05/2012 HTN, goal below 140/90 12/10/2010 Dyslipidemia, goal LDL below 100 12/10/2010 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 (statuses as of 02/20/2024) Resolved Problems Problem Noted Date Diagnosed Date Resolved Date Carpal tunnel syndrome 06/17/201402/08 Allergic rhinitis 06/17/2014 02/08/2018 Adjustment disorder with depressed mood 12/10/2013 07/20/2017 Eczema 06/22/2012 07/20/2017 Epileptic seizure 12/10/2010 08/16/2018 documented as of this encounter (statuses as of 02/20/2024) Immunizations Name Administration Dates Next Due Pneumococcal Conjugate Vacc, 13 Valent (Prevnar) 06/17/2014 Pneumococcal Conjugate Vacci ne, 20-valent ([id number]) 02/15/2022 Pneumococcal Polysaccharide PPV23 (Pneumovax) 05/19/2016 Seasonal [...] as of this encounter Miscellaneous Notes * Addendum Note - Jina Macdonald TECH - 02/20/2024 1:45 PM EDTAddended by: JINA MACDONALD on: 02/20/2024 01:45 PM Modules accepted: Orders documented in this encounter Plan of Treatment Upcoming Encounters Date Type Department Care Team (Late st Contact Info) Description 04/15/2024 10:20 AM EST Office Visit Nephrology, [address] [place] [address] Arvin Swann MD [address] [place] [address] [place] [phone] 05/20/2024 6:20 PM EST Office Visit Family Medicine [address] [place] [phone] Rahul Tucker MD [address] [place] [address] [place] [address] 09/10/2024 9:30 AM EDT Office Visit Urology, [facility] [address] [facility] [place] [address] Duglas Tadeo MD [address] [place] [address] Pending Results Name Type Priority Associated Diagnoses Date /Time IMMUNOGLOBULIN QUANTITATIVE Lab Routine Acute on chronic urinary retention 02/19/2024 1:21 PM EDT Scheduled Orders Name Type Priority Associated Diagnoses Orde r Schedule IMMUNOGLOBULIN QUANTITATIVE Lab Routine Acute on chronic urinary retention Expected: 02/20/2024, Expires: 02/19/2025 Health Maintenance Due Date Last Done Comments DISCUSS TOBACCO CESSATION (REFER TO SMARTSET #3297) 1950 Cologuard 1994 Fecal Occult Blood Test [...] Procedure Name Priority Date/Time Associated Diagnosis Comments URINE IMMUNOFIXATION, BENCE BADILLO PROTEIN, RANDOM URINE Routine 02/19/2024 1:21 PM EDT Acute on chronic urinary retention SERUM PROTEIN ELECTROPHORESIS REFLEX PROFILE Routine 02/19/2024 1:21 PM EDT Acute on chronic urinary retention SERUM IMMUNOFIXATION Routine 02/19/2024 1:21 PM EDT Acute on chronic urinary retention SERUM FREE LIGHT CHAINS Routine 02/19/20 1:21 PM EDT Acute on chronic urinary retention URINE PROTEIN ELECTROPHORESIS REFLEX PROFILE, RANDOM URINE Routine 02/19/2024 1:21 PM EDT Acute on chronic urinary retention documented in this encounter Results * (ABNORMAL) URINE IMMUNOFIXATION, BENCE BADILLO PROTEIN, RANDOM URINE (02/19/2024 1:21 PM EDT) Normal/Abnormal Abnormal(A) Normal 02/20/20 24 1:34 PM EDT [facility] Protein, Random Urine 436 mg/dL 02/20/2024 1:34 PM EDT [facility] Immunofixation Interpretation Abnormal. Monoclonal intact immunoglobulins present. A monoclonal IgG kappa gammopathy is present. 02/20/2024 1:34 PM EDT LABORATORY [facility] Urine Non-blood Collection / Unknown 02/19/2024 1:21 PM EDT 02/19/2024 1:28 PM EDT Arvin Swann MD LAB URINE ORDERABLES LABORATORY [facility] [address] [place] [address] * (ABNORMAL) SERUM IMMUNOFIXATION (02/19/2024 1:21 PM EDT) Normal/Abnormal Abnormal(A) Normal 02/20/20 1:34 PM EDT LAB[facility] Immunofixation Interpretation Abnormal, a monoclonal IgG kappa gammopathy is present. 02/20/2024 1:34 PM EDT [facility] Blood Venous blood specimen / Unknown Venipuncture / Unknown 02/19/2024 1:21 PM EDT 02/19/2024 1:21 PM EDT Arvin Swann MD LAB BLOOD ORDERABLES Performing Organization Address City/[facility] Co de Phone Number LABORATORY [facility] [address] [place] [address] * (ABNORMAL) SERUM FREE LIGHT CHAINS (02/19/2024 1:21 PM EDT) [place] Free Light Chains, Serum 106.85(H) 3.30 - 19.40 mg/L 02/20/2024 12:15 PM EDT LABORATORY [facility] Lambda Free Light Chains, Serum 24.95 5.71 - 26.30 mg/L 02/20/2024 12:15 PM EDT LAB[facility]ORY [facility] [place] Lambda Free Light Chains Ratio 4.28(H) 0.26 - 1.65 02/20/2024 12:15 PM EDT LABORATORY [facility] Blood Venous blood specimen / Unknown Venipuncture / Unknown 02/19/2024 1:21 PM EDT 02/19/2024 1:21 PM EDT Arvin Swann MD LAB BLOOD ORDERABLES Performing Organization Address [facility] Co de Phone Number LABORATORY [place] [address] [place] [address] * (ABNORMAL) URINE PROTEIN ELECTROPHORESIS REFLEX PROFILE, RANDOM URINE (02/19/2024 1:21 PM EDT) Normal/Abnormal Abnormal(A) Normal 02/20/20 1:34 PM EDT LABORATORY [facility] Protein, Random Urine 436 mg/dL 02/20/2024 1:34 PM EDT [facility] Albumin, Urine 66.7 % 02/20/2024 1:34 PM EDT [facility] Globulins, Urine 33.3 % 02/20/20 1:34 PM EDT [facility] M Jeff, Urine 7.8 % 02/20/2024 1:34 PM EDT [facility] Electrophoresis Intepretation Abnormal. Paraprotein present. See urine immunofixation results. 02/20/2024 1:34 PM EDT [facility] Urine Non-blood Collection / Unknown 02/19/2024 1:21 PM EDT 02/19/2024 1:28 PM EDT Arvin Swann MD LAB URINE ORDERABLES LABORATORY [facility] [address] [place] [address] * (ABNORMAL) SERUM PROTEIN ELECTROPHORESIS REFLEX PROFILE (02/19/2024 1:21 PM EDT) Normal/Abnormal Abnormal(A) Normal 02/20/20 1:33 PM EDT [facility] Protein 4.5(L) 6.0 - 8.3 g/dL 02/20/2024 1:33 PM EDT LAB[facility] Albumin 1.14(L) 3.30 - 4.40 g/dL 02/20/2024 1:33 PM EDT [facility] Alpha-1 Globulin 0.14 0.10 - 0.30 g/dL 02/20/2024 1:33 PM EDT LAB[facility] Alpha-2 Globulin 1.14(H) 0.60 - 1.00 g/dL 02/20/2024 1:33 PM EDT [facility] Beta-Globulin 0.98 0.80 - 1.30 g/dL 02/20/2024 1:33 PM EDT [facility] Gamma-Globulin 1.10 0.70 - 1.70 g/dL 02/20/2024 1:33 PM EDT LAB[facility] M Jeff 0.74 g/dL 02/20/2024 1:33 PM EDT LAB[facility] Electrophoresis Interpretation Abnormal. A paraprotein is present. Appropriate studies including quantitative immunoglobulins, serum free light chains, and serum immunofixation have been ordered in follow up. See serum immunofixation results. Urine immunofixation recommended in follow up if clinically indicated. 02/20/2024 1:33 PM EDT LABORATORY [facility] Blood Venous blood specimen / Unknown Venipuncture / Unknown 02/19/2024 1:21 PM EDT 02/19/2024 1:21 PM EDT Arvin Swann MD LAB BLOOD ORDERABLES [facility] [address] [facility] [place] [address] documented in this encounter Visit Diagnoses Diagnosis Acute on chronic urinary retention documented in this encounter Care Teams Negotiator Sales Relationship Specialty Start Date End Date Rahul Tucker MD [address] [place] [address] [place] [address] PCP - General Family Medicine 08/03/18 documented as of this encounter
--- OUTSIDE RECORDS SUMMARY | 2024-03-14 01:52 | External Medical Summary | Summary of Care ---
Author Name Unknown Organization [facility] Address [address] [facility] [address] Phone [phone] Care Team Providers Care Elementary School Counselor Name Role Phone Rahul Tucker MD Primary Care Provide r Reason for Visit * Reason Comments Outpatient Testing Encounter Details Date Type Department Care Team (Late st Contact Info) Description 02/13/2024 3:30 PM EDT Laboratory Laboratory [facility] [address] [place] [phone] [facility] [address] [place] [address] GARY (acute kidney injury) (HCC) Allergies Active Allergy Reactions Criticality Noted Date Comments Azithromycin Hives 12/10/2010 documented as of this encounter (statuses as of 02/13/2024) Medications Medication Sig Dispensed Refills Start Date [...] as of this encounter (statuses as of 02/13/2024) Active Problems Problem Noted Date Diagnosed Date 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 08/16/2018 Tobacco use disorder 06/17/2014 Peripheral vascular disease 03/05/2012 HTN, goal below 140/90 12/10/2010 Dyslipidemia, goal LDL below 100 12/10/2010 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 (statuses as of 02/13/2024) Resolved Problems Problem Noted Date Diagnosed Date Resolved Date Carpal tunnel syndrome 06/17/201402/08 Allergic rhinitis 06/17/2014 02/08/2018 Adjustment disorder with depressed mood 12/10/2013 07/20/2017 Eczema 06/22/2012 07/20/2017 Epileptic seizure 12/10/2010 08/16/2018 documented as of this encounter (statuses as of 02/13/2024) Immunizations Name Administration Dates Next Due Pneumococcal Conjugate Vacc, 13 Valent (Prevnar) 06/17/2014 Pneumococcal Conjugate Vacci ne, 20-valent ([id number]) 02/15/2022 Pneumococcal Polysaccharide PPV23 (Pneumovax) 05/19/2016 Seasonal [...] Team (Late st Contact Info) Description 02/15/2024 2:00 PM EDT Imaging Radiology [address] [place] [address] 04/15/2024 10:20 AM EST Office [address], [address] [address] Arvin Swann MD [address] [place], [place] [address] [address] 05/20/2024 6:20 PM EST Office Visit Family Medicine [address] [place] [phone] Rahul Tucker MD [address] [place] [address] [place] [address] Pending Results Name Type Priority Associated Diagnoses Date /Time URINALYSIS WITH MICROSCOPIC EXAM Lab Routine GARY (acute kidney injury) (HCC) 02/13/2024 3:27 PM EDT Health Maintenance Due Date Last Done Comments DISCUSS TOBACCO CESSATION (REFER TO SMARTSET #9814) 1950 Cologuard 1994 Fecal Occult Blood Test [...] Additional history exists Albumin/Creatinine Ratio 07/26/2025 07/26/2022, 110 05/2018 Colonoscopy 06/23/2030 06/23/2020, 06/03/2015 Colorectal Cancer [...] as of this encounter Visit Diagnoses Diagnosis GARY (acute kidney injury) (HCC) Acute kidney failure, unspecified documented in this encounter Additional Health Concerns Infection Onset Date Last Indicated Resolved Time C. difficile Rule-Out 02/13/2024 02/13/2024 Gastrointestinal Rule-Out 02/13/2024 02/13/2024 documented as of this encounter Care Teams Elementary [employer] Counselor Relationship Specialty Start Date End Date Rahul Tucker MD [address] [place] [address] [place] [phone] PCP - General Family Medicine 08/03/18 documented as of this encounter
--- OUTSIDE RECORDS SUMMARY | 2024-03-14 01:52 | External Medical Summary | Summary of Care ---
Author Name Unknown Organization [facility] Address [address] [place] [address] Phone [phone] Care Team Providers Care Oracle Developer Name Role Phone Rahul Tucker MD Primary Care Provide r Reason for Visit * Reason Onset Date Comments Order Request 02/16/2024 Encounter Details Date Type Department Care Team (Late st Contact Info) Description 02/16/2024 Telephone Nephrology, [address] [address] Arvin Swann MD [address] [place] [address] Order Request Allergies Active Allergy Reactions Criticality Noted Date Comments Azithromycin Hives 12/10/2010 documented as of this encounter (statuses as of 02/27/2024) Medications Medication Sig Dispensed Refills Start Date [...] as of this encounter (statuses as of 02/27/2024) Active Problems Problem Noted Date Diagnosed Date 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 08/16/2018 Tobacco use disorder 06/17/2014 Peripheral vascular disease 03/05/2012 HTN, goal below 140/90 12/10/2010 Dyslipidemia, goal LDL below 100 12/10/2010 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 (statuses as of 02/27/2024) Resolved Problems Problem Noted Date Diagnosed Date Resolved Date Carpal tunnel syndrome 06/17/201402/08 Allergic rhinitis 06/17/2014 02/08/2018 Adjustment disorder with depressed mood 12/10/2013 07/20/2017 Eczema 06/22/2012 07/20/2017 Epileptic seizure 12/10/2010 08/16/2018 documented as of this encounter (statuses as of 02/27/2024) Immunizations Name Administration Dates Next Due Pneumococcal Conjugate Vacc, 13 Valent (Prevnar) 06/17/2014 Pneumococcal Conjugate Vacci ne, 20-valent ([id number]) 02/15/2022 Pneumococcal Polysaccharide PPV23 (Pneumovax) 05/19/2016 Seasonal [...] Telephone Encounter - Yelena Corona LPN - 02/27/2024 8:48 AM EDT Urology appt 02-28-24. * Telephone Encounter - Yelena Corona LPN - 02/20/2024 4:00 PM EDT Per chart review, pt not yet scheduled with urology. * Telephone Encounter - Genoveva Cool OSA - 02/16/2024 12:37 PM EDT An order was requested for this patient. Name of Requesting Provider: pt Order Requested: urine catheter and supplies (Fully kit, straight cat kit thinks size 16, leg bag, iodine or swab, pre filled saline syringes, gloves large, ky jelly) Diagnosis/Reason for Request: stated that provider ordered this If order request is for Mammogram: Is the patient having any breast symptoms? N/A Is there a chance of ? N/A Has the patient had any breast problems in the past? NA What location AND department does the patient wish to have their order completed at? [facility] Fax Number, if applicable: [phone] If the caller is not a current patient, please advise the patient to call their current PCP to havethe order's prior to being seen in our office. The patient was informed that our providers would not order anything (medication, labs, etc.) prior to being seen. documented in this encounter Plan of Treatment Upcoming Encounters Date Type Department Care Team (Late st Contact Info) Description 02/28/2024 9:30 AM EDT Office Visit Urology, [facility] [address] [facility] [place] [address] Duglas Tadeo MD [address] [facility] [place] [address] 03/01/2024 12:15 PM EDT Office Visit Hematology/Oncology [facility] [phone] Brian Dyson MD [address] [place] [address] 04/15/2024 10:20 AM EST Office Visit Nephrology, [facility] [address] Arvin Swann MD [address] [place], [place] [address] [address] 05/20/2024 6:20 PM EST Office Visit Family Medicine [address] [place] [phone] Rahul Tucker MD [address] [place] [address] [place] [address] Health Maintenance Due Date Last Done Comments DISCUSS TOBACCO CESSATION (REFER TO SMARTSET #2319) 1950 Cologuard 1994 Fecal Occult Blood Test [...] filedocumented as of this encounter Care Teams Oracle Developer Relationship Specialty Start Date End Date Rahul Tucker MD [address] [place] [address] [place] [phone] PCP - General Family Medicine 08/03/18 documented as of this encounter
--- OUTSIDE RECORDS SUMMARY | 2024-03-14 01:52 | External Medical Summary | Summary of Care ---
Author Name Unknown Organization [facility] Address [address] [facility] [place] [address] Phone [phone] Care Team Providers Care Life Specialist Name Role Phone Rahul Tucker MD Primary Care Provide r Reason for Referral * Evaluate & Treat - Unlimited Visits (Within 3 days (urgent)) - Authorized Specialty Diagnoses / Procedures Referred By Contac t Referred To Contact Hematology/Oncology / Hematology Oncology Diagnoses IgG monoclonal protein disorder Arvin Swann MD [address] [place] [address] Referral ID Status Reason Start Date Expiration Date Visits Requested Visits Authorized [id number] Authorized Specialty Services Required 4 [phone] Question Answer Referral Priority Within 3 days (urgent) Where should this appointment be scheduled? [facility] Reason for Referral Abnormal SPEP or Protein Encounter Details Date Type Department Care Team (Late st Contact Info) Description 02/20/2024 Telephone Nephrology, [address] [address] Arvin Swann MD [address] [place] [address] Allergies Active Allergy Reactions Criticality Noted Date [...] (Prevnar) 06/17/2014 Pneumococcal Conjugate Vacci ne, 20-valent ([id number]) 02/15/2022 Pneumococcal Polysaccharide PPV23 (Pneumovax) 05/19/2016 Seasonal [...] encounter Miscellaneous Notes * Telephone Encounter - Arvin Swann MD - 02/20/2024 4:19 PM EDT Called patient to discuss recent results. He has 10 g of proteinuria. He also has monoclonal IgG kappa gammopathy. Will refer to Hematology. Arvin Swann MD documented in this encounter Plan of Treatment Upcoming Encounters Date Type Department Care Team (Late st Contact Info) Description 04/15/2024 10:20 AM EST Office Visit Nephrology, [facility] 200 [facility] [place] [address] Arvin Swann MD [address] [place] [address] 05/20/2024 6:20 PM EST Office Visit Family Medicine [address] [place] [phone] Rahul Tucker MD [address] [place] [address] [place] [address] 09/10/2024 9:30 AM EDT Office Visit Urology, [facility] 132 [facility] [place] [address] Duglas Tadeo MD 27 [facility] [place] [address] Scheduled Referrals Name Type Priority Associated Diagnoses Orde r Schedule HEMATOLOGY/ONCOLOGY REFERRAL OP Referral Within 3 days (urgent) IgG monoclonal protein disorder Ordered: 02/20/2024 Health Maintenance Due Date Last Done Comments DISCUSS TOBACCO CESSATION (REFER TO SMARTSET #6042) 1950 Cologuard 1994 Fecal Occult Blood Test [...] as of this encounter Visit Diagnoses Diagnosis 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
--- OUTSIDE RECORDS SUMMARY | 2024-03-14 01:52 | External Medical Summary ---
Author Name Unknown Address Unknown Organization K01:LABORATORY [facility] - [address] [place] [address] Laboratory Report Ordering Provider Test Date Status ROCIOAURABIBI 02/19/2024 13:21:55 Final Observation Date Value Abnormality Reference (Units) Status PARAPROTEIN NORMAL/ABNORMAL 02/19/2024 13:21:55 Abnormal Abnormal Normal Final Immunofixation for Serum or Plasma 02/19/2024 13:21:55 Abnormal, a monoclonal IgG kappa gammopathy is present. Final Performing Location LABORATORY [facility] - [address] [place] [address]
--- OUTSIDE RECORDS SUMMARY | 2024-03-14 01:52 | External Medical Summary ---
Author Name Unknown Address Unknown Organization K01:LABORATORY [facility] - [facility] [place] [address] Laboratory Report Ordering Provider Test Date Status BIBI MARLOW 02/19/2024 13:21:55 Final Observation Date Value Abnormality Reference (Units ) Status [place] light chains, Free, Serum 02/19/2024 13:21:55 106.85 Above high normal 3.30-19.40 (mg/L) Final Lambda light chains, free, Serum 02/19/2024 13:21:55 24.95 5.71-26.30 (mg/L) Final KAPPA LAMBDA FLC RATIO 02/19/2024 13:21:55 4.28 Above high normal 0.26-1.65 Final Performing Location LABORATORY [facility] - [facility] [place] [address]
--- OUTSIDE RECORDS SUMMARY | 2024-03-14 01:52 | External Medical Summary | Summary of Care ---
Author Name Unknown Organization [facility] Address [address] [facility] [place] [address] Phone [phone] Care Team Providers Care Activity Therapy Specialist Name Role Phone Rahul Tucker MD Primary Care Provide r Reason for Visit * Reason Comments NEW PATIENT Hx of Cirrhosis * Evaluate & Treat - Unlimited Visits (Within 30 days (routine)) - Authorized Specialty Diagnoses / Procedures Referred By Contac t Referred To Contact Nephrology Diagnoses Abnormal finding of diagnostic imaging Dolores Edmonds MD [address] [place] [address] [place] [address] Referral ID Status Reason Start Date Expiration Date Visits Requested Visits Authorized [id number] Authorized Specialty Services Required 4 [phone] Encounter Details Date Type Department Care Team (Late st Contact Info) Description 02/13/2024 1:40 PM EDT Office Visit Nephrology, [address] [place] [address] Arvin Swann MD [address] [place] [address] GARY (acute kidney injury) (HCC)*; Cirrhosis of liver with ascites, unspecified hepatic cirrhosis type (HCC); BPH with obstruction/lower urinary tract symptoms; Renal lesion Allergies Active Allergy Reactions Criticality Noted Date Comments Azithromycin Hives 12/10/2010 documented as of this encounter (statuses as of 02/13/2024) Medications Medication Sig Dispensed Refills Start Date End Date Status ASPIRIN 81 MG PO CHEW One pill by mouth once a day with food 100 Tab 5 12/10/2010 Active PHENOBARBITAL 32.4 MG PO TABSIndications: Epileptic seizure (HCC) 5 tabs daily 150 Tab [...] other day. 90 Capsule 3 02/13/2024 Active SIMVASTATIN 20 MG PO TABS One pill by mouth once a day at bedtime 30 Tab 11 12/10/2010 4 Discontinued Tamsulosin HCl 0.4 MG Oral Capsule (Flomax) Take 1 Capsule by mouth in the morning. Taking every other day. 06/21/2022 4 Discontinued Furosemide 20 MG Oral Tablet (Lasix) Take 1 Tablet by mouth in the morning. Taking 40mg for 3 days and then returning to 20mg. 4 Discontinued Furosemide 40 MG Oral Tablet (Lasix) Take 1 Tablet by mouth 2 times a day in the morning and at noon. 180 Tablet 3 02/13/2024 4 Discontinued documented as of this encounter (statuses as [...] (Prevnar) 06/17/2014 Pneumococcal Conjugate Vacci ne, 20-valent ([id number]) 02/15/2022 Pneumococcal Polysaccharide PPV23 (Pneumovax) 05/19/2016 Seasonal [...] Sign Reading Time Taken Comments Blood Pressure 95/58 02/13/2024 1:35 PM EDT Pulse 93 02/13/2024 1:35 PM EDT Temperature 36.4 C (97.6 F) 02/13/2024 1:29 PM ED T Respiratory Rate 20 02/13/2024 1:29 PM EDT Oxygen Saturation 95% 02/13/2024 1:29 PM EDT Inhaled Oxygen Concentration - - Weight 103.4 kg (228 lb) 02/13/2024 1:29 PM EDT Height - - Body Mass Index 32.71 12/15/2023 2:04 PM EDT documented in this encounter Progress Notes * Arvin Swann MD - 02/13/2024 1:40 PM EDT REASON FOR CONSULT: CKD Requesting physician:Dolores Edmonds MD HPI: Dre Vera is a 73 year old male seen in initial consultation. 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 Main complaint is abdominal swelling and exertional dyspnea. He quit taking phenobarbital about 2 months ago but has not had any seizures. No NSAID use. He was taking Flomax for BPH but quit due to dizziness. He is reporting reduced urinary output. Postvoid bladder scan today was positive [id number] mL. 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 Systems: General ROS: negative for - chills or fever Psychological ROS: negative for - mood swings ENT ROS: negative for - nasal congestion or nasal discharge Endocrine ROS: negative Respiratory ROS: + shortness of breath Cardiovascular ROS: + dyspnea on exertion Gastrointestinal ROS: no abdominal pain, change in bowel habits, or black or bloody stools Genito-Urinary ROS: Reduced urine output, urinary retention Musculoskeletal ROS: negative for - muscle pain Neurological ROS: no TIA or stroke symptoms Dermatological ROS: negative for rash Past Medical History: Diagnosis Date Buerger's disease [...] TUNNEL SURGERY 2011 right 2011 COLONOSCOPY 06/03/2015 RI--polyps--benign DENTAL SURGERY PROCEDURE NEC [place] teeth removed EGD, FLEXIBLE, DIAGNOSTIC 12/11/2023 ESOPHAGOGASTRODUODENOSCOPY (EGD), FLEXIBLE, TRANSORAL, DIAGNOSTIC performed by Dolores Edmonds MD at ENDOSCOPY [facility] PATIENT EDU, LUMBAR LAMINECTOMY 1985 Back surgery at [facility] ARTHROPLASTY GLENOHUMERAL JOINT TOTAL SHOULDER Right 11/2021 Dr. Correia RE-REPAIR DETACHED RETINA Both eyes REPAIR ARM TENDON/MUSCLE 2007 Right rotator cuff repair REPAIR RUPTURED ROTATOR CUFF, ACUTE Left 04/27/2017 Dr. Hui Review of patient's allergies indicates: Allergen Reactions Zithromax [Azithromycin] Hives Current Outpatient Medications Medication Sig Dispense Refill ASPIRIN 81 MG PO CHEW One pill by mouth once a day with food 100 Tab 5 Vyzulta 0.024 % Ophthalmic Solution (Latanoprostene Bunod) Instill into eye. Midodrine HCl 10 MG Oral Tablet (Proamatine) [...] Taking every other day. 90 Capsule 3 PHENOBARBITAL 32.4 MG PO TABS 5 tabs daily (Patient not taking: Reported on 02/09/2024) 150 Tab 11 Pantoprazole Sodium 40 MG Oral Tablet Delayed Release (Protonix) Take 1 Tablet by mouth in the morning. (Patient not taking: Reported on 02/09/2024) Potassium Chloride Rosamaria ER 10 MEQ Oral Tablet Extended Release Take 1 Tablet by mouth every other day. (Patient not taking: Reported on 02/09/2024) No current facility-administered medications for this visit. [...] Needs: Not on file Social Connections: Unknown (02/13/2024) Social Connections How often do you feel lonely or isolated from those around you? (Adult - for ages 18 years and over): Not on file Housing Stability: Not on file Filed Vitals: 02/13/24 1329 02/13/24 1335 BP: 120/70 95/58 Pulse: 85 93 Resp: 20 Temp: 36.4 C (97.6 F) SpO2: 95% Weight: 103.4 kg (228 lb) PHYSICAL EXAM: GENERAL: Well-appearing, Alert, in no acute distress. EYES: PERRL, conjunctivae anicteric. ENT: Mucous membranes moist, oropharynx clear. NECK: Supple, no JVD. LYMPH: No cervical or supraclavicular lymphadenopathy. LUNGS: Clear to auscultation bilaterally, no respiratory distress. CARDIAC: Regular rate and rhythm, normal S1/S2, no murmurs, rubs, or gallops. ABDOMEN: Soft, non-tender, mildly-distended, bowel sounds present. EXT/MSK: No clubbing, cyanosis, 1+ edema. SKIN: No rash, no jaundice. NEURO: Oriented x3, No tremor, no asterixis. LABS/STUDIES: Recent Labs Units 01/19/24 0958 12/25/23 1002 12/18/23 0958 08/10/22 1114 07/26/22 1010 SODIUM - [facility] mmol/L 137 137 137 -- 139 POTASSIUM - [facility] mmol/L 5.0 4.6 5.5* 5.1 5.6* CHLORIDE - [facility] mmol/L 104 103 102 -- 104 CO2 - [facility] mmol/L 27 27 27 -- 27 BUN - [facility] mg/dL 33* 27* 24* -- 19 CREATININE - [facility] mg/dL 1.3* 1.1 1.2 -- 0.9 Recent Labs Units 12/18/23 0958 WBC K/uL 8.74 HGB g/dL 16.4 PLT K/uL 477* Recent Labs Units 01/19/24 0958 12/25/23 1002 12/18/23 0958 07/26/22 1010 CALCIUM - [facility] mg/dL 8.9 8.8 9.2 9.4 No results for input(s): "HGBA1C" in the last 68002 hours. No results for input(s): "MICROALBUMIN", "PROCRRATIO" in the last 01314 hours. ASSESSMENT/PLAN: Dre was seen today for new patient. Diagnoses and all orders for this visit: GARY (acute kidney injury) (HCC) Patient with the acute kidney injury likely due to decompensated cirrhosis. Patient has been hypotensive. Blood pressure is slightly better on midodrine. He also has signs of volume overload. Will check urinalysis and urine protein. Repeat BMP in a week. Cirrhosis of liver with ascites, unspecified hepatic cirrhosis type (HCC) Patient with a liver cirrhosis thought to be due to phenobarbital. He is scheduled for a liver scan. He has edema some ascites and pleural effusion. Will increase his Lasix to 40 mg daily. If he tolerates that, will likely increase it 40 mg twice daily. BPH with obstruction/lower urinary tract symptoms Patient with BPH and urinary retention. He had a postvoid residual 538 mL. I have asked him to restart the Flomax. He needs catheterization as well. I offered to refer him to the Emergency Room but patient declined. 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 I have asked them to get straight cath and due clean intermittent catheterization at least 3 times a day. I also offered to refer to Urology but patient prefers to wait until he is done with the current workup for the liver issues. Renal lesion Patient found have a 1.4 cm intermediate renal lesion on CT scan done at [facility]. He will need the MRI kidney with contrast but again this can be done the next office visit after patient is done with the current workup for the liver cirrhosis. I spent a total of Greater than 55 mins (exact time 58 mins) on the date of service in preparation,delivery, and documentation of the care provided to Dre Vera excluding any time spent in the performance of separately billed services or time spent by another provider/QHP. Follow Up: Return in about 2 months (around 04/14/2024). Arvin Swann MD Nephrology, [facility] [address] [place] [address] This note was generated with the help of voice recognition software. Please excuse for errors. documented in this encounter Nursing Notes * Alem Beverly RN - 02/13/2024 1:36 PM EDT New patient today referred by Hepatology for Abnormal findings from ER visit on 02/07/24. ER recordsscanned in to GI record. Pt states that he is feeling like he is retaining fluid. Hx of Cirrhosis. present in room for visit. Er ordered increased Lasix to 40mg x 3 days though pt only took thatdose one day and returned to 20mg dose. Dyspnic on exertion and feels that he has increased abdominal swelling. He is also noting some upper thigh edema. documented in this encounter Plan of Treatment Upcoming Encounters Date Type Department Care Team (Late st Contact Info) Description 02/15/2024 2:00 PM EDT Imaging Radiology [facility], [place] [address] [facility] [place] [address] 04/15/2024 10:20 AM EST Office Visit Nephrology, [facility] [address] [place] [address] Arvin Swann MD [address] [place], [place] [address] [address] 05/20/2024 6:20 PM EST Office [place] [address] [place] [phone] Rahul Tucker MD [address] [place] [address] [place] [phone] Pending Results Name Type Priority Associated Diagnoses Date /Time URINALYSIS WITH MICROSCOPIC EXAM Lab Routine GARY (acute kidney injury) ([facility]) 02/13/2024 3:27 PM EDT PROTEIN/ CREATININE RATIO, URINE Lab Routine GARY (acute kidney injury) ([facility]) 02/13/2024 3:27 PM EDT Scheduled Orders Name Type Priority Associated Diagnoses Orde r Schedule POST VOID RESIDUAL BLADDER US (NURSE ONLY) Procedures Routine BPH with obstruction/lower urinary tract symptoms Ordered: 02/13/2024 URINALYSIS WITH MICROSCOPIC EXAM Lab Routine GARY (acute kidney injury) ([facility]) Expected: 02/13/2024, Expires: 02/12/2025 Health Maintenance Due Date Last Done Comments DISCUSS TOBACCO CESSATION (REFER TO SMARTSET #3296) 1950 Cologuard 1994 Fecal Occult Blood Test 1994 Sigmoidoscopy 1994 Zoster Vaccines (2 of 3) 04/01/2013 02/04/2013, 12/31 Adult Wellness Visit 2015 Depression Screening 12/09/2020 12/10/2019 DTap/Tdap Vaccines (2 - Td or Tdap) 11/16/2021 11/17/2011 Lipid Panel 02/27/2023 02/27/2018, 11/05/2016, 03/07/2016, Additional history exists COVID-19 Vaccine ( [...] Visit Diagnoses Diagnosis GARY (acute kidney injury) (HCC)- Primary Acute kidney failure, unspecified Cirrhosis of liver with ascites, unspecified hepatic cirrhosis type (HCC) BPH with obstruction/lower urinary tract symptoms Hypertrophy of prostate with urinary obstruction and other lower urinary tract symptoms (LUTS) Renal lesion Unspecified disorder of kidney and ureter documented in this encounter Additional Health Concerns Infection Onset Date Last Indicated Resolved Time C. difficile Rule-Out 02/13/2024 02/13/2024 Gastrointestinal Rule-Out 02/13/2024 02/13/2024 documented as of this encounter Care Teams Activity Therapy Specialist Relationship Specialty Start Date End Date Rahul Tucker MD [address] [place] [address] [place] [address] PCP - General Family Medicine 08/03/18 documented as of this encounter
--- OUTSIDE RECORDS SUMMARY | 2024-03-14 01:52 | External Medical Summary | Summary of Care ---
Author Name Unknown Organization [facility] Address [address] [facility] [place] [address] Phone [phone] Care Team Providers Care Code Machine Operator Name Role Phone Rahul Tucker MD Primary Care Provide r Reason for Visit * Reason Comments Outpatient Testing Encounter Details Date Type Department Care Team (Late st Contact Info) Description 02/19/2024 1:20 PM EDT Laboratory Laboratory [address] [place] [phone] [facility] [address] [place] [address] Acute on chronic urinary retention Allergies Active Allergy Reactions Criticality Noted Date Comments Azithromycin Hives 12/10/2010 documented as of this encounter (statuses as of 02/19/2024) Medications Medication Sig Dispensed Refills Start Date [...] as of this encounter (statuses as of 02/19/2024) Active Problems Problem Noted Date Diagnosed Date 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 08/16/2018 Tobacco use disorder 06/17/2014 Peripheral vascular disease 03/05/2012 HTN, goal below 140/90 12/10/2010 Dyslipidemia, goal LDL below 100 12/10/2010 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 (statuses as of 02/19/2024) Resolved Problems Problem Noted Date Diagnosed Date Resolved Date Carpal tunnel syndrome 06/17/201402/08 Allergic rhinitis 06/17/2014 02/08/2018 Adjustment disorder with depressed mood 12/10/2013 07/20/2017 Eczema 06/22/2012 07/20/2017 Epileptic seizure 12/10/2010 08/16/2018 documented as of this encounter (statuses as of 02/19/2024) Immunizations Name Administration Dates Next Due Pneumococcal Conjugate Vacc, 13 Valent (Prevnar) 06/17/2014 Pneumococcal Conjugate Vacci ne, 20-valent ([id number]) 02/15/2022 Pneumococcal Polysaccharide PPV23 (Pneumovax) 05/19/2016 Seasonal [...] 04/15/2024 10:20 AM EST Office Visit Nephrology, [address] [place] [address] Arvin Swann MD [address] [facility] [place] [address] 05/20/2024 6:20 PM EST Office Visit Family Medicine [address] [phone] Rahul Tucker MD [address] [place] [address] [place] [address] 09/10/2024 9:30 AM EDT Office Visit Urology, [facility] [address] [facility] [place] [address] Duglas Tadeo MD [address] [place] [phone] Pending Results Name Type Priority Associated Diagnoses Date /Time SERUM PROTEIN ELECTROPHORESIS REFLEX PROFILE Lab Routine Acute on chronic urinary retention 02/19/2024 1:21 PM EDT URINE PROTEIN ELECTROPHORESIS REFLEX PROFILE, RANDOM URINE Lab Routine Acute on chronic urinary retention 02/19/2024 1:21 PM EDT SERUM FREE LIGHT CHAINS Lab Routine Acute on chronic urinary retention 02/19/2024 1:21 PM EDT Health Maintenance Due Date Last Done Comments DISCUSS TOBACCO CESSATION (REFER TO SMARTSET #8087) 1949 Cologuard 1994 Fecal Occult Blood Test [...] retention documented in this encounter Care Teams Code Machine Operator Relationship Specialty Start Date End Date Rahul Tucker MD [address] [place] [address] [place] [phone] PCP - General Family Medicine 08/03/18 documented as of this encounter
--- OUTSIDE RECORDS SUMMARY | 2024-03-14 01:52 | External Medical Summary | Summary of Care ---
Author Name Unknown Organization [facility] Address [address] [place] [facility] [place] [place] [address] Phone [phone] Care Team Providers Care Price Accuracy Supervisor Name Role Phone Rahul Tucker MD Primary Care Provide r Reason for Referral * Precert (Diagnostic Medical) (Within 10 days (routine)) - Authorized Specialty Diagnoses / Procedures Referred By Contac t Referred To Contact Cardiac Studies Diagnoses Other cirrhosis of liver (HCC) Procedures ECHO, COMPLETE (2D), TRANS-THORACIC Dolores Edmonds MD [facility] [place] [address] Referral ID Status Reason Start Date Expiration Date V isits Requested Visits Authorized [id number] Authorized Precert 02/28/2024 999 999 * Precert (Within 10 days (routine)) - Authorized Specialty Diagnoses / Procedures Referred By Contac t Referred To Contact Radiology Diagnoses Other cirrhosis of liver (HCC) Procedures MRI LIVER W CONTRAST Dolores Edmonds MD [address] [place] [address] Referral ID Status Reason Start Date Expiration Date V isits Requested Visits Authorized [id number] Authorized 02/28/2024 999 999 Reason for Visit * Reason Onset Date Comments Test Results 02/27/2024 Encounter Details Date Type Department Care Team (Late st Contact Info) Description 02/27/2024 Telephone Family Medicine Vickey Pringle [address] [place] [address] [place] [phone] Rahul Tucker MD [address] [place] [address] [place] [address] Test Results Allergies Active Allergy Reactions Criticality [...] (Prevnar) 06/17/2014 Pneumococcal Conjugate Vacci ne, 20-valent ([id number]) 02/15/2022 Pneumococcal Polysaccharide PPV23 (Pneumovax) 05/19/2016 Seasonal [...] encounter Miscellaneous Notes * Telephone Encounter - Vangie Ratliff CMA [...] Please inform. * Telephone Encounter - Skyla ChingAMANDA - 02/27/2024 2:29 PM EDT Phone call [...] 2:29 PM EDT Dolores Edmonds MD P [facility] Gastro Nurse Pool/Class Please call and [...] 03/01/2024 12:15 PM EDT Office Visit Hematology/Oncology [facility] 200 [facility] [place] [phone] Brian Dyson MD [address] [facility] [address] [place] [address] 04/15/2024 10:20 AM EST Office Visit Nephrology, [facility] [address] [facility] [place] [address] Arvin Swann MD [address] [place] [address] [place] [address] 05/20/2024 6:20 PM EST Office Visit [address] [phone] Rahul Tucker MD [address] [place] [address] [place] [address] 07/17/2024 11:15 AM EDT Procedure Only Urology, [facility] [address] [place] [address] Duglas Tadeo MD [address] [place] [address] Scheduled Orders Name Type Priority Associated Diagnoses [...] TOBACCO CESSATION (REFER TO SMARTSET #3291) 1949 Cologuard 1994 Fecal Occult Blood Test [...] Primary documented in this encounter Care Teams Price Accuracy Supervisor Relationship Specialty Start Date End Date Rahul Tucker MD [address] [place] [address] [place] [address] PCP - General Family Medicine 08/03/18 documented as of this encounter
--- OUTSIDE RECORDS SUMMARY | 2024-03-14 01:52 | External Medical Summary ---
Author Name Unknown Address Unknown Organization K01:[facility] [place] [address] [place] [address] Laboratory Report Ordering Provider Test Date Status BIBI MARLOW 02/19/2024 13:21:55 Final Observation Date Value Abnormality Reference (Units ) Status IgG 02/19/2024 13:21:55 3148 [id number] ( mg/dL) Final IgA 02/19/2024 13:21:55 207 70-400 (mg /dL) Final IgM 02/19/2024 13:21:55 106 40-230 (mg /dL) Final Performing Location LABORATORY C - [address] [place] [address]
--- OUTSIDE RECORDS SUMMARY | 2024-03-14 01:52 | External Medical Summary | Summary of Care ---
Author Name Unknown Organization [facility] Address [address] [place] [facility] [place] [address] Phone [phone] Care Team Providers Care Inspector And Sorter Name Role Phone Rahul Tucker MD Primary Care Provide r Reason for Referral * Precert (Diagnostic Medical) (Within 10 days (routine)) - Authorized Specialty Diagnoses / Procedures Referred By Contac t Referred To Contact Cardiac Studies Diagnoses Other cirrhosis of liver (HCC) Procedures ECHO, COMPLETE (2D), TRANS-THORACIC Dolores Edmonds MD [facility] [place] [address] Referral ID Status Reason Start Date Expiration Date V isits Requested Visits Authorized [id number] Authorized Precert 02/28/2024 999 999 * Precert (Within 10 days (routine)) - Authorized Specialty Diagnoses / Procedures Referred By Contac t Referred To Contact Radiology Diagnoses Other cirrhosis of liver (HCC) Procedures MRI LIVER W CONTRAST Dolores Edmonds MD [address] [place] [address] Referral ID Status Reason Start Date Expiration Date V isits Requested Visits Authorized [id number] Authorized 02/28/2024 999 999 Reason for Visit * Reason Onset Date Comments Test Results 02/27/2024 Encounter Details Date Type Department Care Team (Late st Contact Info) Description 02/27/2024 Telephone Family Medicine Vickey Pringle [address] [place] [address] [place] [phone] Rahul Tucker MD [address] [place] [address] [place] [address] Test Results Allergies Active Allergy Reactions Criticality [...] (Prevnar) 06/17/2014 Pneumococcal Conjugate Vacci ne, 20-valent ([id number]) 02/15/2022 Pneumococcal Polysaccharide PPV23 (Pneumovax) 05/19/2016 Seasonal [...] encounter Miscellaneous Notes * Telephone Encounter - Deborah Waggoner OSA [...] 02/27/2024 2:29 PM EDT Dolores Edmonds MD [facility] Gastro Nurse Pool/Class Please call and [...] PM EDT Office Visit Hematology/Oncology [place] [address] [place] [phone] Brian Dyson MD 200 [facility] [place] [address] 03/23/2024 10:30 AM EST Imaging Radiology [address] 132 [facility] [place] [address] 04/15/2024 10:20 AM EST Office Visit Nephrology, [facility] 200 [facility] [place] [address] Arvin Swann MD [address] [place] [address] 05/20/2024 6:20 PM EST Office Visit Family Medicine [address] [place] [phone] Rahul Tucker MD [address] [place] [address] [place] [address] 07/17/2024 11:15 AM EDT Procedure Only Urology, [facility] 132 [facility] [place] [address] Duglas Tadeo MD [address] [place] [address] Scheduled Orders Name Type Priority Associated Diagnoses [...] Comments DISCUSS TOBACCO CESSATION (REFER TO SMARTSET #2032) 1950 Cologuard 1994 Fecal Occult Blood Test [...] Primary documented in this encounter Care Teams Inspector And Sorter Relationship Specialty Start Date End Date Rahul Tucker MD [address] [place] [address] [place] [phone] PCP - General Family Medicine 08/03/18 documented as of this encounter
--- OUTSIDE RECORDS SUMMARY | 2024-03-14 01:52 | External Medical Summary ---
Author Name Unknown Address Unknown Organization K01:LABORATORY [facility] [place] - [address] [place] [address] Laboratory Report Ordering Provider Test Date Status BIBI MARLOW 02/19/2024 13:21:55 Final Observation Date Value Abnormality Reference (Units) Status PARAPROTEIN NORMAL/ABNORMAL 02/19/2024 13:21:55 Abnormal Abnormal Normal Final Protein, Urine 02/19/2024 13:21:55 436 (mg/dL) Final Immunofixation for Urine Narrative 02/19/2024 13:21:55 Abnormal. Monoclonal intact immunoglobulins present. A monoclonal IgG kappa gammopathy is present. Final Performing Location LABORATORY [facility] - [address] [place] [address]
--- OUTSIDE RECORDS SUMMARY | 2024-03-14 01:52 | External Medical Summary ---
Author Name Unknown Address Unknown Organization K01:LAB[facility]ATORY [facility] - [address] [facility] [address] Laboratory Report Ordering Provider Test Date Status BIBI MARLOW 02/19/2024 13:21:55 Final Observation Date Value Abnormality Reference (Units) Status PARAPROTEIN NORMAL/ABNORMAL 13:21:55 Abnormal Abnormal Normal Final Protein 13:21:55 4.5 Below low normal 6.0-8.3 (g/dL) Final Albumin/Protein.tota l [Pure mass fraction] in Serum or Plasma by Electrophoresis 13:21:55 1.14 Below low normal 3.30-4.40 (g/dL) Final Alpha 1 globulin/Protein.tot al [Pure mass fraction] in Serum or Plasma by Electrophoresis 13:21:55 0.14 0.10-0.30 (g/dL) Final Alpha 2 globulin/Protein.tot al [Pure mass fraction] in Serum or Plasma by Electrophoresis 13:21:55 1.14 Above high normal 0.60-1.00 (g/dL) Final Beta globulin/Protein.tot al [Pure mass fraction] in Serum or Plasma by Electrophoresis 13:21:55 0.98 0.80-1.30 (g/dL) Final Gamma globulin/Protein.tot al [Pure mass fraction] in Serum or Plasma by Electrophoresis 13:21:55 1.10 0.70-1.70 (g/dL) Final Monoclonal protein 13:21:55 0.74 (g/dL) Final Protein Fractions [Interpretation] in Serum or Plasma by Electrophoresis Narrative 13:21:55 Abnormal. A paraprotein is present. Appropriate studies including quantitative immunoglobulins, serum free light chains, and serum immunofixation have been ordered in follow up. See serum immunofixation results. Urine immunofixation recommended in follow Final Protein Fractions [Interpretation] in Serum or Plasma by Electrophoresis Narrative 4 13:21:55 up if clinically indicated. Final Performing Location LAB[facility]ORY [facility] - [facility] [address] [facility] [address]
--- OUTSIDE RECORDS SUMMARY | 2024-03-14 01:52 | External Medical Summary | Summary of Care ---
Author Name Unknown Organization [facility] Address [address] [facility] [address] Phone [phone] Care Team Providers Care Pipe Organ Mechanic Name Role Phone Rahul Tucker MD Primary Care Provide r Reason for Referral * Precert (Diagnostic Medical) (Within 10 days (routine)) - Authorized Specialty Diagnoses / Procedures Referred By Contac t Referred To Contact Cardiac Studies Diagnoses Other cirrhosis of liver (HCC) Procedures ECHO, COMPLETE (2D), TRANS-THORACIC Dolores Edmonds MD [facility] [place] [address] Referral ID Status Reason Start Date Expiration Date V isits Requested Visits Authorized [id number] Authorized Precert 02/28/2024 999 999 * Precert (Within 10 days (routine)) - Authorized Specialty Diagnoses / Procedures Referred By Contac t Referred To Contact Radiology Diagnoses Other cirrhosis of liver (HCC) Procedures MRI LIVER W CONTRAST Dolores Edmonds MD [address] [place] [address] Referral ID Status Reason Start Date Expiration Date V isits Requested Visits Authorized [id number] Authorized 02/28/2024 999 999 Reason for Visit * Reason Onset Date Comments Test Results 02/27/2024 Encounter Details Date Type Department Care Team (Late st Contact Info) Description 02/27/2024 Telephone Family Medicine Vickey Pringle [address] [place] [address] [place] [phone] Rahul Tucker MD [address] [place] [address] [place] [address] Test Results Allergies Active Allergy Reactions Criticality [...] (Prevnar) 06/17/2014 Pneumococcal Conjugate Vacci ne, 20-valent ([id number]) 02/15/2022 Pneumococcal Polysaccharide PPV23 (Pneumovax) 05/19/2016 Seasonal [...] encounter Miscellaneous Notes * Telephone Encounter - Dolores Edmonds MD [...] 02/27/2024 2:29 PM EDT Dolores Edmonds MD Alan Timmons Gastro Nurse Pool/Class Please call and inform [...] 03/01/2024 12:15 PM EDT Office Visit Hematology/Oncology [facility] [address] [facility] [place] [phone] Brian Dyson MD [address] [facility] [place] [address] 04/15/2024 10:20 AM EST Office Visit Nephrology, [facility] [address] [facility] [place] [address] Arvin Swann MD [address] [place] [address] [place] [address] 05/20/2024 6:20 PM EST Office Visit Family Medicine [address] [place] [phone] Rahul Tucker MD [address] [place] [address] [place] [address] 07/17/2024 11:15 AM EDT Procedure Only Urology, [facility] [address] [place] [address] Duglas Tadeo MD [address] [place] [address] Scheduled Orders Name Type Priority Associated Diagnoses [...] Primary documented in this encounter Care Teams Pipe Organ Mechanic Relationship Specialty Start Date End Date Rahul Tucker MD [address] [place] [address] [place] [address] PCP - General Family Medicine 08/03/18 documented as of this encounter
--- OUTSIDE RECORDS SUMMARY | 2024-03-14 01:53 | External Medical Summary | Summary of Care ---
Author Name Unknown Organization [facility] Address [address] [facility] [place] [address] Phone [phone] Care Team Providers Care Playground Worker Name Role Phone Rahul Tucker MD Primary Care Provide r Reason for Visit * Reason Comments Outpatient Testing Encounter Details Date Type Department Care Team (Late st Contact Info) Description 02/13/2024 12:10 PM EDT Laboratory Laboratory [address] [place] [phone] Dr Specimen Drop Off [address] [place] [address] Diarrhea, unspecified type Allergies Active Allergy Reactions Criticality Noted Date [...] 5 12/10/2010 Active PHENOBARBITAL 32.4 MG PO TABSIndications:Epil eptic seizure (HCC) 5 tabs daily 150 Tab 11 07/25/2012 Active Additional Information Patient not taking.Reported on 02/09/2024 Tamsulosin HCl 0.4 MG Oral Capsule (Flomax) Take 1 Capsule by mouth in the morning. Taking every other day. 06/21/2022 Active Vyzulta 0.024 % Ophthalmic Solution (Latanoprostene Bunod) Instill into eye. Active Furosemide 20 MG Oral Tablet (Lasix) Take 1 Tablet by mouth in the morning. Taking 40mg for 3 days and then returning to 20mg. Active Pantoprazole Sodium 40 MG Oral Tablet [...] and 1 Tablet in the evening. Active documented as of this encounter (statuses [...] (Prevnar) 06/17/2014 Pneumococcal Conjugate Vacci ne, 20-valent ([id number]) 02/15/2022 Pneumococcal Polysaccharide PPV23 (Pneumovax) 05/19/2016 Seasonal [...] 02/13/2024 1:40 PM EDT Office Visit Nephrology, [address] [place] [address] Arvin Swann MD [address] [place] [address] [place] [address] 02/15/2024 2:00 PM EDT Imaging Radiology [address] [place] [address] 05/20/2024 6:20 PM EST Office Visit Family Medicine [address] [place] [phone] Rahul Tucker MD [address] [place] [address] [place] [address] Pending Results Name Type Priority Associated Diagnoses Date /Time CLOSTRIDIUM DIFFICILE, PCR Lab Routine Diarrhea, unspecified type 02/13/2024 12:02 PM EDT GASTROINTESTINAL PATHOGEN PANEL, STOOL Lab Routine Diarrhea, unspecified type 02/13/2024 12:02 PM EDT GASTROINTESTINAL PATHOGEN PANEL PCR Lab Routine Diarrhea, unspecified type 02/13/2024 12:02 PM EDT GASTROINTESTINAL PATHOGEN PANEL CULTURE Lab Routine Diarrhea, unspecified type 02/13/2024 12:02 PM EDT Health Maintenance Due Date Last [...] as of this encounter Visit Diagnoses Diagnosis Diarrhea, unspecified type documented in this encounter Additional Health Concerns Infection Onset Date Last Indicated Resolved Time C. difficile Rule-Out 02/13/2024 02/13/2024 Gastrointestinal Rule-Out 02/13/2024 02/13/2024 documented as of this encounter Care Teams Playground Worker Relationship Specialty Start Date End Date Rahul Tucker MD [address] [place] [address] [place] [phone] PCP - General Family Medicine 08/03/18 documented as of this encounter
--- OUTSIDE RECORDS SUMMARY | 2024-03-14 01:53 | External Medical Summary | Summary of Care ---
Author Name Unknown Organization [facility] Address [address] [facility] [place] [address] Phone [phone] Care Team Providers Care Chart Collector Name Role Phone Rahul Tucker MD Primary Care Provide r Reason for Visit * Reason Onset Date Comments Medical Nutrition Therapy 02/13/2024 Encounter Details Date Type Department Care Team (Late st Contact Info) Description 02/13/2024 2:00 PM EDT Scheduled Telephone Alan Mazariegos [address] [place] [address] Vikki Leiva, BLANK [address] [place] [address] Allergies Active Allergy Reactions Criticality Noted Date [...] and at noon. 180 Tablet 3 02/13/2024 Active documented as of this [...] (Prevnar) 06/17/2014 Pneumococcal Conjugate Vacci ne, 20-valent ([id number]) 02/15/2022 Pneumococcal Polysaccharide PPV23 (Pneumovax) 05/19/2016 Seasonal [...] encounter Miscellaneous Notes * Telephone Encounter - Vikki Leiva RDN - 02/13/2024 2:21 PM EDT Received phone call yesterday from pt that he is not doing well with eating recently. States he washaving abdominal pain the previous evening; questioning if these symptoms are related to gall bladder issues. States his weight has increased 14 lbs recently, but notes he is not eating well. Reportshe will be having a CT of his abdomen on , and is seeing a Gastroenterology provider on Monday this week. Notes he needs to see a Nephrology provider soon also. Encouraged him to eat what he can for now. Discussed scheduling a follow- up appointment after these symptoms are addressed and he is agreeable with this. Vikki Leiva RDN, Clinical Dietitian II, [facility] Clinical Nutrition Services [facility] [address] [place] [address] Available via Between Digital Portal documented in this encounter Plan of Treatment Upcoming Encounters Date Type Department Care Team (Late st Contact Info) Description 02/15/2024 2:00 PM EDT Imaging Radiology [facility] [place] [address] [facility] [place] [address] 05/20/2024 6:20 PM EST Office Visit Family Medicine [address] [place] [phone] Rahul Tucker MD [address] [place] [address] [place] [address] Health Maintenance Due Date Last Done Comments DISCUSS TOBACCO CESSATION (REFER TO SMARTSET #2366) 1950 Cologuard 1994 Fecal Occult Blood Test [...] Not on filedocumented as of this encounter Additional Health Concerns Infection Onset Date Last Indicated Resolved Time C. difficile Rule-Out 02/13/2024 02/13/2024 Gastrointestinal Rule-Out 02/13/2024 02/13/2024 documented as of this encounter Care Teams Chart Collector Relationship Specialty Start Date End Date Rahul Tucker MD [address] [place] [address] [place] [phone] PCP - General Family Medicine 08/03/18 documented as of this encounter
--- OUTSIDE RECORDS SUMMARY | 2024-03-14 01:53 | External Medical Summary ---
Author Name Unknown Address Unknown Organization K09:[facility]ATORY [facility] [address] - [address] [place] [address] Laboratory Report Ordering Provider Test Date Status BIBI MARLOW 02/13/2024 15:27:32 Final Observation Date Value Abnormality Reference (Units ) Status Color of Urine by Auto 02/13/2024 15:27:32 Brown Abnormal Light Yellow, Yellow, Dark Yellow Final Clarity, Urine 02/13/2024 15:27:32 Clear Clear Final Glucose [Mass/volume] in Urine by Automated test strip 02/13/2024 15:27:32 100 Abnormal Negative (mg/dL) Final Bilirubin.total [Presence] in Urine by Automated test strip 02/13/2024 15:27:32 Moderate Abnormal Negative Final Ketones [Mass/volume] in Urine by Automated test strip 02/13/2024 15:27:32 Trace Abnormal Negative (mg/dL) Final Specific gravity, Urine 02/13/2024 15:27:32 1.025 1.003-1.030 Final Hemoglobin [Presence] in Urine by Automated test strip 02/13/2024 15:27:32 Moderate Abnormal Negative Final pH, Urine 02/13/2024 15:27:32 5.5 5.0-7.5 (Units) Final Protein [Mass/volume] in Urine by Automated test strip 02/13/2024 15:27:32 >=300 Abnormal Negative (mg/dL) Final Urobilinogen [Mass/volume] in Urine by Automated test strip 02/13/2024 15:27:32 1.0 0.2, 1.0 (mg/dL) Final Nitrite [Presence] in Urine by Automated test strip 02/13/2024 15:27:32 Negative Negative Final Leukocyte esterase [Presence] in Urine by Automated test strip 02/13/2024 15:27:32 Negative Negative Final RBC, Urine 02/13/2024 15:27:32 6-9 Abnormal 0-2 (/HPF) Final WBC, Urine 02/13/2024 15:27:32 6-9 Abnormal 0-2 (/HPF) Final Bacteria [#/area] in Urine sediment by Microscopy high power field 02/13/2024 15:27:32 0-25 0-25 (/HPF) Final Granular casts [#/area] in Urine sediment by Microscopy low power field 02/13/2024 15:27:32 1-4 Abnormal None (/LPF) Final Performing Location [facility] [address] [place] [address]
--- OUTSIDE RECORDS SUMMARY | 2024-03-14 01:53 | External Medical Summary | Summary of Care ---
Author Name Unknown Organization [facility] Address [address] [facility] [place] [address] Phone [phone] Care Team Providers Care Clerk General Name Role Phone Rahul Tucker MD Primary Care Provide r Reason for Visit * Reason Onset Date Comments Medical Nutrition Therapy 02/12/2024 Encounter Details Date Type Department Care Team (Late st Contact Info) Description 02/12/2024 8:30 AM EDT Scheduled Telephone Alan Mazariegos [address] [place] [address] Vikki Leiva, BLANK [address] [place] [address] Allergies Active Allergy Reactions Criticality Noted Date Comments Azithromycin Hives 12/10/2010 documented as of this encounter (statuses as of 02/12/2024) Medications Medication Sig Dispensed Refills Start Date [...] as of this encounter (statuses as of 02/12/2024) Active Problems Problem Noted Date Diagnosed Date 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 08/16/2018 Tobacco use disorder 06/17/2014 Peripheral vascular disease 03/05/2012 HTN, goal below 140/90 12/10/2010 Dyslipidemia, goal LDL below 100 12/10/2010 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 (statuses as of 02/12/2024) Resolved Problems Problem Noted Date Diagnosed Date Resolved Date Carpal tunnel syndrome 06/17/201402/08 Allergic rhinitis 06/17/2014 02/08/2018 Adjustment disorder with depressed mood 12/10/2013 07/20/2017 Eczema 06/22/2012 07/20/2017 Epileptic seizure 12/10/2010 08/16/2018 documented as of this encounter (statuses as of 02/12/2024) Immunizations Name Administration Dates Next Due Pneumococcal Conjugate Vacc, 13 Valent (Prevnar) 06/17/2014 Pneumococcal Conjugate Vacci ne, 20-valent ([id number]) 02/15/2022 Pneumococcal Polysaccharide PPV23 (Pneumovax) 05/19/2016 Seasonal [...] Telephone Encounter - Vikki Leiva RDN - 02/12/2024 9:13 AM EDT Attempted to contact pt via cell phone to follow-up from initial nutrition visit from December 14. Left message on voicemail. Also, contacted pt on house phone. Left message with regarding scheduling a follow-up appointment. Vikki Leiva RDN, Clinical Dietitian II, [facility] Clinical Nutrition Services [facility] [address] [place] [address] Available via [employer] Portal documented in this encounter Plan of Treatment Upcoming Encounters Date Type Department Care Team (Late st Contact Info) Description 02/13/2024 1:40 PM EDT Office Visit Nephrology, Derrell Ronquillo [address] [place] [address] [place], [place] [phone] Arvin Swann MD [address] [place] [address] [place] [address] 02/15/2024 2:00 PM EDT Imaging Radiology [address], [place] [address] [place] [address] 05/20/2024 6:20 PM EST Office Visit Family Medicine [address] [place] [phone] Rahul Tucker MD [address] [place] [address] [place] [address] Health Maintenance Due Date Last Done Comments DISCUSS TOBACCO CESSATION (REFER TO SMARTSET #8981) 1950 Cologuard 1994 Fecal Occult Blood Test [...] filedocumented as of this encounter Care Teams Clerk General Relationship Specialty Start Date End Date Rahul Tucker MD [address] [place] [address] [place] [address] PCP - General Family Medicine 08/03/18 documented as of this encounter
--- OUTSIDE RECORDS SUMMARY | 2024-03-14 01:53 | External Medical Summary ---
Author Name Unknown Address Unknown Organization K01:LABORATORY [facility] - [address] [place] [address] Laboratory Report Ordering Provider Test Date Status KACY NORTON 02/13/2024 12:02:46 Final Observation Date Value Abnormality Reference (Units) Status Bacteria identified in Specimen by Culture 02/13/2024 12:02:46 No Aeromonas species or Plesiomonas species isolated. Final Test: Gastrointestinal Patho gen Panel Culture
Specimen Source: Stool
Specimen Type: Stool
Specimen Date: 02/13/2024 1202
Result Date: 02/16/2024 1122
Result Status: Final result
Resulting Lab: [facility]
[address]
[place] [address]

CULTURE

No Aeromonas species or Plesiomonas species isolated.

null Performing Location [facility]ORY [facility] - [address] [place] [address]
--- OUTSIDE RECORDS SUMMARY | 2024-03-14 01:53 | External Medical Summary | Summary of Care ---
Author Name Unknown Organization [facility] Address [address] [facility] [place] [address] Phone [phone] Care Team Providers Care Blender / Cook Name Role Phone Rahul Tucker MD Primary Care Provide r Reason for Visit * Reason Onset Date Comments Medical Nutrition Therapy 02/12/2024 Encounter Details Date Type Department Care Team (Late st Contact Info) Description 02/12/2024 8:30 AM EDT Scheduled Telephone Alan Mazariegos [address] [place] [address] Vikki Leiva, BLANK [address] [place] [address] Allergies Active Allergy Reactions Criticality Noted Date [...] (Prevnar) 06/17/2014 Pneumococcal Conjugate Vacci ne, 20-valent ([id number]) 02/15/2022 Pneumococcal Polysaccharide PPV23 (Pneumovax) 05/19/2016 Seasonal [...] appointment. Vikki Leiva RDN, Clinical Dietitian II, [facility] Clinical Nutrition Services [facility] [address] [place] [address] Available via [email or web address] Portal documented in this encounter Plan of Treatment Upcoming Encounters Date Type Department Care Team (Late st Contact Info) Description 02/13/2024 1:40 PM EDT Office Visit Nephrology, Derrell Ronquillo [address] [place] [address] [place], [place] [phone] Arvin Swann MD [address] [place] [address] [place] [address] 02/15/2024 2:00 PM EDT Imaging Radiology [address], [place] [address] [place] [address] 05/20/2024 6:20 PM EST Office Visit Family Medicine [address] [place] [phone] Rahul Tucker MD [address] [place] [address] [place] [address] Health Maintenance Due Date Last Done Comments DISCUSS TOBACCO CESSATION (REFER TO SMARTSET #8906) 1950 Cologuard 1994 Fecal Occult Blood Test [...] filedocumented as of this encounter Care Teams Blender / Cook Relationship Specialty Start Date End Date Rahul Tucker MD [address] [place] [address] [place] [address] PCP - General Family Medicine 08/03/18 documented as of this encounter
--- OUTSIDE RECORDS SUMMARY | 2024-03-14 01:53 | External Medical Summary | Summary of Care ---
Author Name Unknown Organization [facility] [address] [address] Phone [phone] Care Team Providers Care Director Digital Communications Name Role Phone Rahul Tucker MD Primary Care Provide r Reason for Referral * Evaluate & Treat - Unlimited Visits (Within 30 days (routine)) - Authorized Specialty Diagnoses / Procedures Referred By David sharp Referred To Contact Nephrology Diagnoses Abnormal finding of diagnostic imaging Dolores Edmonds MD [address] [place] [address] Referral ID Status Reason Start Date Expiration Date Visits Requested Visits Authorized [id number] Authorized Specialty Services Required 999 999 Question Answer Referral Priority Within 30 days (routine) Where should this appointment be scheduled? [facility] What condition is this patient being seen for? Other (please specify) - renal lesion * Precert (Within 10 days (routine)) - Authorized Specialty Diagnoses / Procedures Referred By David sharp Referred To Contact Radiology Diagnoses Other cirrhosis of liver (HCC) Procedures CT LIVER W WO IV CONTRAST - WO ORAL CONTRAST Dolores Edmonds MD [address] [place] [address] Referral ID Status Reason Start Date Expiration Date V isits Requested Visits Authorized [id number] Authorized 02/09/2024 999 999 Reason for Visit * Reason Comments NEW PATIENT New pt ref by Krystian Myles for cirrhosis. Pt has seen [facility] [place] [facility] [place] Pt c/o abdominal discomfort today w/ nausea and diarrhea. Worse after meals. Pt was recently seen at [facility] ED for abd bloating/discomfort. ED Dr increased his lasix to 40mg. Encounter Details Date Type Department Care Team (Late st Contact Info) Description 02/09/2024 11:20 AM EDT Office Visit Hepatology, [facility] [address] [facility] [place] [id number] Dolores Edmonds MD [address] [place] [address] Other cirrhosis of liver (HCC)*; Abnormal finding of diagnostic imaging; Diarrhea, unspecified type Allergies Active Allergy Reactions Criticality Noted Date Comments Azithromycin Hives 12/10/2010 documented as of this encounter (statuses as of 02/09/2024) Medications Medication Sig Dispensed Refills Start Date [...] as of this encounter (statuses as of 02/09/2024) Active Problems Problem Noted Date Diagnosed Date 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 08/16/2018 Tobacco use disorder 06/17/2014 Peripheral vascular disease 03/05/2012 HTN, goal below 140/90 12/10/2010 Dyslipidemia, goal LDL below 100 12/10/2010 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 (statuses as of 02/09/2024) Resolved Problems Problem Noted Date Diagnosed Date Resolved Date Carpal tunnel syndrome 06/17/201402/08 Allergic rhinitis 06/17/2014 02/08/2018 Adjustment disorder with depressed mood 12/10/2013 07/20/2017 Eczema 06/22/2012 07/20/2017 Epileptic seizure 12/10/2010 08/16/2018 documented as of this encounter (statuses as of 02/09/2024) Immunizations Name Administration Dates Next Due Pneumococcal Conjugate Vacc, 13 Valent (Prevnar) 06/17/2014 Pneumococcal Conjugate Vacci ne, 20-valent ([id number]) 02/15/2022 Pneumococcal Polysaccharide PPV23 (Pneumovax) 05/19/2016 Seasonal [...] Sign Reading Time Taken Comments Blood Pressure 100/62 02/09/2024 10:57 AM EDT Pulse 72 02/09/2024 10:57 AM EDT Temperature 36.6 C (97.9 F) 02/09/2024 1 0:57 AM EDT Respiratory Rate - - Oxygen Saturation 94% 02/09/2024 10: 57 AM EDT Inhaled Oxygen Concentration - - Weight 101.9 kg (224 lb 9.6 oz) 024 10:57 AM EDT Height - - Body Mass Index 32.23 12/15/2023 2:04 PM EDT documented in this encounter Progress Notes * Dolores Edmonds MD - 02/09/2024 11:06 AM EDT Hepatology [facility]: cirrhosis Referred by Rahul Tucker HPI: 73 yo male with a history of htn, hl, referred now for cirrhosis of the liver. He's with his today (she is a nurse) He has been seen at [facility], [place], and then also thru telemedicine in [place] prior to this appt. Had a diagnosis of cirrhosis made this summer- he was to the ER on at [facility] and diagnosed with cirrhosis thru imaging He was filling up with fluid - told it was from the heart, but it wasn't from the heart after seeing cardiology reportedly from what they tell me, and he was put on lasix 40 mg po daily, never on aldactone. Went back to the ER two weeks later for randa pain - cat scan was done that showed cirrhosis of theliver. He was referred to hepatology - with his today. They did a telemedicine appt with Hepatology in [place] and now here today. Drink 4-5 beers a week, no dui's, no dwi's. 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 No family history of liver problems. Never told he had a fatty liver. Prior needlesticks working in the lab but was told he tested negative for hepatitis b, c Hepatitis a igg + He reports he feels mild nausea, and also mild diarrhea for the last week - does not take abx. He doesn't do anything all day - just sits on the couch as he feels he doesn't have energy. 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 He also had been on Phenobarbital for many years that [place] [facility] had mentioned ? that may have contributed. 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 Furosemide 20 MG Oral Tablet (Lasix) Take 1 Tablet by mouth in the morning. Taking 40mg for 3 days and then returning to 20mg. Midodrine HCl 10 MG Oral Tablet (Proamatine) Take 1 Tablet by mouth in the morning and 1 Tablet at noon and 1 Tablet in the evening. SIMVASTATIN 20 MG PO TABS One pill by mouth once a day at bedtime (Patient not taking: Reported on 12/08/2023) 30 Tab 11 PHENOBARBITAL 32.4 MG PO TABS 5 tabs daily (Patient not taking: Reported on 02/09/2024) 150 Tab 11 Tamsulosin HCl 0.4 MG Oral Capsule (Flomax) Take 1 Capsule by mouth in the morning. Taking every other day. (Patient not taking: Reported on 12/08/2023) Pantoprazole Sodium 40 MG Oral Tablet Delayed [...] indicates: Allergen Reactions Zithromax [Azithromycin] Hives Social History Socioeconomic History Marital status: Spouse [...] Needs: Not on file Social Connections: Unknown (02/09/2024) Social Connections How often do you feel lonely or isolated from those around you? (Adult - for ages 18 years and over): Not on file Housing Stability: Not on file Family History Problem Relation Name Age of Onset Neurological Disorder Mother Parkinson's Heart Disorder Father Musculo-skeletal Disorder Brother Back problems Other (Other) Son from overdose ROS: Constitutional: No report of fever, chills, night sweats. There have been no non-intentional weightchanges. Eyes: No recent changes in visual acuity or blurring of vision. ENT: No change in auditory acuity, sense of smell or taste. CV: No chest pain, palpitations, dyspnea on exertion. Respiratory: No wheezing, cough, sputum production. : No dysuria, polyuria, change in urinary frequency. GI: Per HPI, otherwise negative. Psychiatric: No chronic changes in mood, affect or sensorium. Musculoskeletal: No myalgias, arthralgias, or joint pains. Neurological: No change in gait, change in maintenance of balance, neurologic injuries. Physical Exam Constitutional: BP 100/62 | Pulse 72 | Temp 36.6 C (97.9 F) | Wt 101.9 kg (224 lb 9.6 oz) | SpO2 94% | BMI 32.23 kg/m | BSA 2.24 m Well developed, well nourished male in no apparent distress. Eyes: Conjunctivae and sclerae are clear and non-icteric. Pupils are equally round and reactive to light, extra-ocular movements intact. ENT: Nares are patent and without discharge. Oropharynx is clear and without erythema or exudates. Buccal mucosa is moist. Neck: Supple; there is no adenopathy. No supraclavicular adenopathy is noted. CV: Heart is regular without murmur, rub or liu. Pulm: Clear to percussion and auscultation. GI: Abdomen is soft, non-tender, with normo-active bowel sounds in all four quadrants. No hepatosplenomegaly is appreciated. No masses are palpated. No guarding or rebound is noted. Psychiatric: The patient is alert and oriented in all four spheres. Mood is euthymic. Affect is appropriate for the situation. Skin: No rashes were noted. Musculoskeletal: Gait is normal. Patient is able to transfer from sitting position to exam table without assistance. Labs reviewed thru [facility] INR 1.1 Na 137 Cr 1.2 Biirubin 0.2 Aih markers negative, Iron markers negative Ceruloplasmin markers negative 02/07/24: Wbc 8.61, hbg 17.2, hct 51.6, plt 475 AST 51 LAT 27 AP 370 BNP 167 Alb 2.0 Lipase 28 TB 0.4 Over 50 pages of paperwork was reviewed that they brought with them today A/P: Cirrhosis - presumed etiology drug induced +/- undiagnosed prior history of fatty liver He was told he ascites- not seen on recent imaging, not seen on abd vivek that was done at [facility] for aparacentesis - on lasix 40, would cut back to 20 daily give he reports he has low bp and is on midodrine that his states is not working, eating egg whites and his wants him to get albumin infusions as he feels he is orthostatic but we discussed that typically albumin infusions are given with large volume paracentesis not as a standard of care as a daily infusion or even weekly infusion for cirrhotic patients Counseled on importance of prophylactic vaccines. We spoke of what cirrhosis is, what the meld score is, checking in every 6 months for meld labs andhcc screening, low salt diet, avoidance of ethanol CT liver in the interim before he comes back Given findings of a kidney lesion- refer to nephrology as he has never seen them before he states 6 month fup Dolores Edmonds MD documented in this encounter Nursing Notes * Vangie Ratliff CMA - 02/09/2024 10:57 AM EDT Chief Complaint Patient presents with NEW PATIENT New pt ref by Krystian Myles for cirrhosis. Pt has seen [facility] [place] [facility] [place] Pt c/o abdominal discomfort today w/ nausea and diarrhea. Worse after meals. Pt was recently seen at [facility] ED for abd bloating/discomfort. ED Dr increased his lasix to 40mg. documented in this encounter Plan of Treatment Upcoming Encounters Date Type Department Care Team (Late st Contact Info) Description 02/13/2024 1:40 PM EDT Office Visit Nephrology, [facility] [address] [place] [address] Arvin Swann MD [address] [place] [address] [place] [address] 02/15/2024 2:00 PM EDT Imaging [facility] 1[facility] Floor, [place] [address] [facility] [place] [address] 05/20/2024 6:20 PM EST Office Visit Family Medicine [address] [place] [phone] Rahul Tucker MD [address] [place] [address] [place] [address] Scheduled Orders Name Type Priority Associated Diagnoses Order Schedule CT LIVER W WO IV CONTRAST - WO ORAL CONTRAST Medical Imaging Routine Other cirrhosis of liver (HCC) Expected: 02/09/2024, Expires: 03/11/2025 GASTROINTESTINAL PATHOGEN PANEL, STOOL Lab Routine Diarrhea, unspecified type Expected: 02/09/2024, Expires: 02/08/2025 CLOSTRIDIUM DIFFICILE, PCR Lab Routine Diarrhea, unspecified type Expected: 02/09/2024, Expires: 02/08/2025 Scheduled Referrals Name Type Priority Associated Diagnoses Orde r Schedule NEPHROLOGY REFERRAL OP Referral Within 30 days (routine) Abnormal finding of diagnostic imaging Ordered: 02/09/2024 Health Maintenance Due Date Last Done Comments [...] Diagnosis Other cirrhosis of liver (HCC)- Primary Abnormal finding of diagnostic imaging Other nonspecific (abnormal) findings on radiological and other examinations of body structure Diarrhea, unspecified type documented in this encounter Care Teams Director Digital Communications Relationship Specialty Start Date End Date Rahul Tucker MD [address] [place] [address] [place] [address] PCP - General Family Medicine 08/03/18 documented as of this encounter"
--- OUTSIDE RECORDS SUMMARY | 2024-03-14 01:53 | External Medical Summary ---
Author Name Unknown Address Unknown Organization [id number]:[facility] [place] [facility] [address] [facility] [address] Laboratory Report Ordering Provider Test Date Status KACY NORTON 02/13/2024 12:02:46 Final Observation Date Value Abnormality Reference (Units ) Status Campylobacter sp DNA.diarrheagenic [Presence] in Stool by AURE with probe detection 02/13/2024 12:02:46 Negative Negative Final Salmonella sp rpoD gene [Presence] in Stool by AURE with probe detection 02/13/2024 12:02:46 Negative Negative Final Shigella species+EIEC invasion plasmid antigen H ipaH gene [Presence] in Stool by AURE with probe detection 02/13/2024 12:02:46 Negative Negative Final Vibrio sp DNA [Identifier] in Specimen by AURE with probe detection 02/13/2024 12:02:46 Negative Negative Final Yersinia enterocolitica recN gene [Presence] in Stool by AURE with probe detection 02/13/2024 12:02:46 Negative Negative Final Escherichia coli Stx1 toxin stx1 gene [Presence] in Stool by AURE with probe detection 02/13/2024 12:02:46 Negative Negative Final Escherichia coli Stx2 toxin stx2 gene [Presence] in Stool by AURE with probe detection 02/13/2024 12:02:46 Negative Negative Final Norovirus genogroups I and II RNA panel - Stool by AURE with probe detection 02/13/2024 12:02:46 Negative Negative Final Rotavirus A RNA [Presence] in Stool by AURE with probe detection 02/13/2024 12:02:46 Negative Negative Final Performing Location [facility] [place] [facility] [address] [facility] [address] [facility] [address]
--- OUTSIDE RECORDS SUMMARY | 2024-03-14 01:53 | External Medical Summary ---
Author Name Unknown Address Unknown Organization [id number]:[facility] [place] [address] [place] [address] Laboratory Report Ordering Provider Test Date Status KACY NORTON 02/13/2024 12:02:37 Final Observation Date Value Abnormality Reference (Units) Status Source 02/13/2024 12:02:37 Semi-formed Final Clostridioides difficile toxin and [id number] strain DNA panel - Stool by AURE with probe detection 02/13/2024 12:02:37 Negative. No C. difficile toxin B gene DNA detected by PCR (Amplified Probe). Negative Final Performing Location [facility] [place] [address] [place] [address]
--- OUTSIDE RECORDS SUMMARY | 2024-03-14 01:53 | External Medical Summary ---
Author Name Unknown Address Unknown Organization [id number][place] [place] [address] [place] [address] Laboratory Report Ordering Provider Test Date Status BIBI MARLOW 02/13/2024 15:27:32 Final Normal: <150 mg/ g creatinine
High: 150-500 mg/g creatinine
Very High: >500 mg/g creatinine
Nephrotic: >3000 mg/g creatinine Observation Date Value Abnormality Reference (Units ) Status Protein/Creatinine [Ratio] in Urine 02/13/2024 15:27:32 [address] Above high normal <150 (mg/g ) Final Protein, Urine 02/13/2024 15:27:32 3623 (mg/dL) Final Creatinine, Urine 02/13/2024 15:27:32 334 (mg/dL) Final Performing Location [facility] [place] [address] [place] [address]
[2024-03-14 02:37] LABS: ANTI-Xa, UFH(UnfractionatedHep 0.11 IU/ml (0.3-0.7)
[2024-03-14] MEDS: HEPARIN SOD (PORCINE) 1000 UNIT/ML IV ONE (03:16)
[2024-03-14] MEDS: FINASTERIDE 5 MG TAB PO SCH (08:37)
[2024-03-14] MEDS: LATANOPROST 0.005% OP SOLN 2.5 ML BTL OPB SCH (08:38)
[2024-03-14] MEDS ORDERED: fentaNYL citrate PF 100 MCG/2 ML VIAL ONE ×2 (08:38→10:30)
[2024-03-14] MEDS ORDERED: ONDANSETRON INJ 2 MG/ML 2 ML VIAL ONE (08:38)
[2024-03-14] MEDS ORDERED: MIDAZOLAM HCL 1 MG/ML 2ML VIAL ONE (08:38)
[2024-03-14] MEDS ORDERED: PROPOFOL IV EMULSION 10 MG/ML 20 ML VIAL IV ONE (08:38)
[2024-03-14] MEDS ORDERED: LIDOCAINE 2% 2 ML VIAL/AMP(20MG/ML) INFIL ONE (08:38)
[2024-03-14] MEDS ORDERED: ALBUMIN HUMAN 5% 12.5 GM/250 ML VIAL IV ONE (08:45)
--- NOTE | 2024-03-14 08:49 | Anesthesiology Consultation ---
Date of Service March 14, 2024 Assessment & Plan (1) Encounter for pre-operative examination: Chart Review Chart Review: Acceptable Risk for Surgery (urgent procedure) History Surgery Operation Date: 03/14/24 10:15 Proposed Procedures p Left Open Lower Extremity Thrombectomy, Possible Bypass - Abhishek Smith MD Height/Weight Height: 5 ft 10 in Weight: 106.7 kg Allergies Allergy/AdvReac Type Severity Reaction Status Date / Time dorzolamide Allergy Severe eyes Verified 01/18/24 11:40 swollen azithromycin Allergy Intermediate Rash Verified 01/18/24 11:40 Medications Home Medications Medication Instructions Recorded Confirmed Last Taken furosemide 20 mg tablet 40 mg PO BID 01/18/24 03/13/24 Unknown midodrine 10 mg tablet 10 mg PO TID #60 tabs 02/04/24 03/13/24 Unknown finasteride 5 mg tablet 5 mg PO DAILY 03/13/24 03/13/24 Unknown latanoprost 0.005 % eye drops 1 drp OPB DAILY 03/13/24 03/13/24 Unknown Active Medications Generic Name Dose Route Start Last Admin Trade Name Freq PRN Reason Stop Dose Admin Finasteride 5 mg 03/14/24 09:00 03/14/24 08:37 Finasteride 5 Mg Tab PO 04/13/24 08:59 5 mg DAILY MICHELLE Administration Heparin Sodium/Dextrose 25,000 units in 500 mls @ 34 mls/hr 03/13/24 15:30 03/14/24 07:35 Heparin Sodium/Dextrose IV 04/12/24 15:29 1,700 units/hr .[id number] MICHELLE 34 mls/hr Administration Protocol 1,700 UNITS/HR Latanoprost 1 drops 03/14/24 09:00 03/14/24 08:38 Latanoprost 0.005% Op Soln 2.5 Ml Btl OPB 04/13/24 08:59 1 drops DAILY MICHELLE Administration Morphine Sulfate 2 mg 03/13/24 17:25 03/13/24 23:05 Morphine Sulfate 2 Mg/Ml Carp IV 03/27/24 17:24 2 mg Q4H PRN Administration Severe Pain (Scale 7, 8, 9,10) Past Medical History Medical History (Updated 03/14/24 @ 08:46 by Dre Castaneda MD) Acute on chronic renal insufficiency Hypoalbuminemia Cirrhosis Orthostatic hypotension Syncope Sensorineural hearing loss (SNHL) of left ear with restricted hearing of right ear Seizure Grand mal (most recent 1978) Migraine History of palpitations BPH (benign prostatic hyperplasia) Bulging disc Osteoarthritis Glaucoma Restless leg syndrome Pulmonary embolism 1985 post-op (back surgery) Past Family History Family History Father Family hx of colon cancer Cancer Colorectal cancer Heart disease Grandfather (Maternal) Family hx of colon cancer Grandfather Colorectal cancer Past Surgical History Surgical History History of reverse total replacement of right shoulder joint right History of sinus surgery Endoscopic sinus surgery (08/09/18): LMA#5, [facility]ra[facility] at [facility] [place]. No issues noted per post-op anesthesia progress note. H/O eye surgery Detached retina repairs-bilateral H/O sinus surgery History of repair of rotator cuff R/L History of carpal tunnel release R/L History of discectomy Lumbar History of colonoscopy Dr. Richards with polypectomy History of tooth extraction History of cataract surgery R/L Social History Smoking Status: Current every day smoker tobacco type: cigarettes Smoking cigarettes per day: 3 Do You Dip or Chew Tobacco: No Hx Alcohol Use: No Alcohol type: beer alcohol intake frequency: a few times a week Hx Substance Use: No substance use type: does not use Physical Exam Vital Signs Last Vital Signs Temp 36.3 C L 03/14/24 07:22 Pulse 59 L 03/14/24 07:22 Resp 18 03/14/24 07:22 BP 128/55 L 03/14/24 07:22 Pulse Ox 94 03/14/24 07:22 O2 Del Method Room Air 03/14/24 07:22 Testing Laboratory Results 03/13/24 19:40 03/13/24 13:30 PT 13.0 Seconds (9.0-12.0) H 03/13/24 13:30 INR 1.2 (0.9-1.1) H 03/13/24 13:30 APTT 28 Seconds (21-31) 03/13/24 13:30 Urine Color Yellow 03/13/24 Unknown Urine Appearance Cloudy (Clear) A 03/13/24 Unknown Urine pH 5.5 (4.5-7.5) 03/13/24 Unknown Ur Specific [place] 1.021 (1.000-1.030) 03/13/24 Unknown Urine Protein 4+ (Negative) H 03/13/24 Unknown Urine Glucose (UA) Negative (Negative) 03/13/24 Unknown Urine Ketones Negative (Negative) 03/13/24 Unknown Urine Nitrite Negative (Negative) 03/13/24 Unknown Ur Leukocyte Esterase Negative (Negative) 03/13/24 Unknown Urine WBC (Auto) 0-5 /hpf (0-5) 03/13/24 Unknown Urine RBC (Auto) 11-20 /hpf (0-2) H 03/13/24 Unknown U Hyaline Cast (Auto) >20 /lpf (0-2) H 03/13/24 Unknown U Epithel Cells (Auto) 6-10 /hpf (0-2) H 03/13/24 Unknown Urine Bacteria (Auto) None Seen (None Seen) 03/13/24 Unknown Blood Type A Positive 03/13/24 16:50 Antibody Screen NEGATIVE 03/13/24 16:50 Laboratory Tests 03/13/24 13:30 Plt Count 490 H Electrocardiogram Date: 11/19/23 Findings: + NSR @ (77) Chest X-Ray Date: 03/13/24 mild pulmonary edema vs infiltrates low lung volumes Echocardiogram Date: 11/16/23 EF: 55-60% LV Function: normal Other Findings: + LVH (mild) Valvular Disease: + no significant valvular disease
--- NOTE | 2024-03-14 08:59 | Hospitalist Progress Note ---
Date of Service March 14, 2024 Assessment & Plan (1) Occlusion of artery of lower extremity: Plan Dre Vera is a 73y/o M with PMHx significant for dyslipidemia, peripheral vascular disease, Buerger's disease, HTN, BPH with obstruction/lower urinary tract symptoms, urinary retention, bilateral renal cyst, epilepsy, history of pulmonary embolism, monoclonal IgG kappa gammopathy, orthostatic hypotension, cirrhosis with ascites, CKD stage III and tobacco use disorder who presented to the ED on 03/13/2024 for evaluation of left lower leg pain and was found to have an occlusion of the distal left calf vessels on arterial ultrasound imaging. LLE Arterial Occlusion, Buerger's Disease: LLE Arterial Doppler US --> Extensive atherosclerotic plaque within the LLE, findings consistent with a stenosis (likely severe) within the mid L superficial femoral artery, markedly diminished flow within the L calf vessels and minimal flow within the proximal L calf vessels without definite distal flow suggesting occlusion of the distal L calf vessels. RLE Arterial Doppler US --> Mild/moderate arterial atherosclerosis below the knee joint, no high-grade stenosis or occlusion in the rest of the RLE arteries. Vascular surgery was consulted on admission. Patient underwent mechanical thrombectomy of the L superficial femoral artery and anterior tibial artery, SENIOR STRATEGY MANAGER and stenting of the L superficial femoral artery, LLE arteriogram with Dr. Smith today. He was transitioned to the ICU postoperatively for tPA infusion. Patient is currently NPO. He is scheduled to undergo LLE tPA recheck, possible intervention/femoral popliteal bypass with Dr. Smith tomorrow morning. Continue IV heparin. Hgb stable, PRBCs ordered if needed. Leukocytosis, Recent Untreated UTI: WBC continues to rise, likely reactive 2/2 pain however patient has been having some sinus congestion/chills/dysuria recently. CXR reviewed and without any evidence of consolidation. UA negative for bacteria this admission however he recently had an outpatient UA done on 03/06/2024 that was infected, which he never received ABX for. Will initiate IV Rocephin for now pending urine culture results. CKD Stage III, HTN History of Urinary Retention, BPH: [facility] - Dr. Swann. Per most recent outpatient documentation on [facility], it appears that the patient has CKD stage III. His baseline creatinine has been slowly uptrending since November of this year: 1.2 (November) -> 1.3 (January) -> 1.5 (03/05/2024) -> 1.63 on admission. Cr continues to worsen, likely 2/2 contrast use. Home Lasix on hold. May benefit from nephrology consultation. Bladder scan PRN. Avoid nephrotoxic medications when able. Patient does have previous issues with urinary retention. He has been seen by Dr. Duglas Tadeo [[facility]] as an outpatient. He has been requiring self-catheterization at home. According to outpatient records on [facility], he is supposed to undergo cystoscopy to evaluate his lower urinary tract anatomy. Continue finasteride, Sousa catheter in place. Cirrhosis: reports he was recently diagnosed with cirrhosis back in October of this year. He recently saw Dr. Edmonds with [facility] in January. It was thought that his presumed etiology of cirrhosis was drug-induced +/- undiagnosed prior history of fatty liver disease. AST 52, Alk Phos 627 today, continue to monitor. May benefit from liver US. Hyperlipidemia: Lipid panel this admission -> Total cholesterol 380, LDL 322, HDL 37. Patient was previously on statin therapy however this was stopped for unknown reasons. He would benefit from resumption of statin therapy and possibly even daily ASA. Seizure Disorder: Patient was previously on phenobarbital, however he stopped taking this medication approximately 2 months ago. He has not had a seizure since 1975. Seizure precautions. Tobacco Use Disorder: Patient smokes approximately 3 to 4 cigarettes/day. Encourage smoking cessation. Denies need for nicotine patch at this time. History of Proteinuria: He is currently being worked up by [facility] - Dr. Brian Dyson. There was concern of the possibly that the patient may have multiple myeloma as there was evidence of Bence-Cosme proteins in a recent urine sample as an outpatient. He had a bone marrow biopsy done on 03/05/2024 and patient was not made aware of the results. He has a PET scan scheduled next week on 03/19/2024. According to outpatient records on [facility], it was also suspected that the patient may have amyloidosis due to postural hypotension, nephrotic range proteinuria and hepatomegaly. Other Chronic Medical Conditions: BPH/glaucoma --> Can continue home medications for these specific conditions. PRN midodrine for SBP<100 - he takes this TID at home. DVT Prophylaxis: On IV heparin as per above. Code Status: FULL CODE PCP: Rahul Tucker MD Disposition: Admitted in ICU 2/2 tPA infusion ordered by vascular surgery. Patient seen in collaboration with Dr. Hough. Please see addendum. I spent a total of 50 minutes coordinating, documenting, and providing care for this patient excluding time spent in the performance of separately billed services. This included personally reviewing all current laboratories and imaging studies, medical reconciliation, outpatient chart review and discussion with specialists. This chart was completed in part utilizing Speech Voice Recognition Software. Grammatical errors, random word insertions, pronoun errors, and incomplete sentences are an occasional consequence of this system due to software limitations, ambient noise, and hardware issues. Any formal questions or concerns about the content, text, or information contained within the body of this dictation should be directly addressed to the provider for clarification. Admission and Anticipated Discharge Date Admission Date: March 13, 2024 Supervising Physician Co-Signing Physician Notes Patient is seen and examined at bedside Left leg pain much improved Reports some left leg stiffness this morning no bleeding issues while on IV heparin States feeling tired today Physical Exam: Vitals signs as noted above General Appearance:Moderately built and nourished, no apparent distress Head: normocephalic, Atraumatic Eyes: normal inspection, EOMI Neck: supple, Trachea midline Respiratory/Chest: Normal breath sounds, CTA, No accessory muscle use Cardiovascular: S1, S2, No murmur Abdomen/GI:Soft, Non tender, Bowel sounds present Extremities/Musculoskeletal:normal inspection, left lower extremity cold, mottled, edematous Neurologic/Psych:AAOX3, grossly no focal neurological deficits Skin: normal color, warm Left lower extremity ischemia/occlusion Peripheral artery disease Hyperlipidemia --S/P mechanical thrombectomy left superficial femoral artery and anterior tibial artery, tPA stenting by Dr. Smith on 03/14/2024 Continue IV heparin appreciate vascular surgery, critical care input Pain control Security Orderly to quit smoking tobacco use Consider to add aspirin, statin as able Persistent leukocytosis Check urine culture Empirically on Rocephin CKD Monitor renal function closely Avoid nephrotoxic agents as able Follows with [facility] nephrology as outpatient I personally interviewed and examined at bedside. Patient's care is coordinated with Maribell Mackay PA-C. I have reviewed the advanced practitioner's documentation, and I agree with plan of care. Please refer to the documentation above for details of patient's presentation and for discussion of other issues. I spent a total [id number] coordinating, documenting, and providing care for this patient excluding time spent in the performance of separately billed services. Subjective Patient seen and examined at bedside postoperatively this afternoon with his wif Bina vasquez, at bedside. Patient is receiving an infusion of tPA in the ICU. He reports that he has some burning in his left lower leg. His noted some mild swelling in his right lower extremity that started earlier this morning and is unchanged. Patient is complaining of a dry mouth but is being fed some ice chips. His reports that he has to go back to the OR tomorrow for further intervention. Review of Systems Review of Systems: At least ten systems reviewed and negative, except as noted in the subjective section. Physical Exam Physical Exam: General: NAD, laying down flat in bed eating some ice chips, conversing appropriately, at bedside. A+Ox3, euthymic affect. HEENT: Normocephalic, atraumatic. Conjunctivae normal, anicteric sclerae. Dance Therapist al ear and nose normal, oropharynx normal. Respiratory: Normal respiratory effort, lungs clear to auscultation, no wheeze, rales, rhonchi. No accessory muscle use. Cardiovascular: Regular rate, rhythm, no murmur, +1 RLE edema. Vessels: No JVD. Abdomen/GI: Normal bowel sounds, distended but soft, nontender. : Sousa catheter intact and draining clear, yellow urine without issue. No evidence of hematuria. Extremities/Musculoskeletal: L lower leg and foot cool to the touch, L foot mottling, R femoral sheath/cath site intact. Neurologic: No focal deficits, CN's II-XI not formally tested but appear grossly intact bilaterally. Results & Data Results & Data Vital Signs (Past 12 Hours) Vital Signs Temp Pulse Pulse Resp BP Pulse Ox O2 Del Method 03/14/24 07:22 36.3 C L 59 L 18 128/55 L 94 Room Air 03/14/24 03:29 36.4 C L 59 L 18 133/66 94 Room Air 03/13/24 23:09 36.5 C 65 18 144/75 H 91 Room Air 03/13/24 22:00 61 Laboratory Results Short CBC 03/13/24 03/13/24 Range/Units 13:30 19:40 WBC 16.04 H (4.8-10.8) K/ul Hgb 15.9 14.5 (14.0-18.0) g/dl Hct 45.6 42.0 (42.0-52.0) % Plt Count 490 H (130-400) K/uL BMP 03/13/24 13:30 Sodium 140 Potassium 4.2 Chloride 108 H Carbon Dioxide 25 BUN 79 H Creatinine 1.63 H Glucose 125 H Calcium 8.2 L Liver Function 03/13/24 Range/Units 13:30 Total Bilirubin 0.3 (0.2-1.0) mg/dl AST 58 H (13-39) U/L ALT 36 (7-52) U/L Alkaline Phosphatase 741 H (34-104) U/L Albumin 1.8 L (3.4-5.0) gm/dl Urine 03/13/24 Range/Units Unknown Urine Color Yellow Urine Appearance Cloudy A (Clear) Urine pH 5.5 (4.5-7.5) Ur Specific [place] 1.021 (1.000-1.030) Urine Protein 4+ H (Negative) Urine Glucose (UA) Negative (Negative)
--- NOTE | 2024-03-14 09:22 | History & Physical Bridge Note ---
Date of Service March 14, 2024 History & Physical Bridge Note I have examined the patient, reviewed the History & Physical and in the interval since the performance of the History & Physical I have noted the following changes of clinical significance: no changes noted
[2024-03-14 09:30] LABS: Basophils # (auto) 0.02 K/uL (0.00-0.20); Basophils % (auto) 0.1 %; Hematocrit (blood only) 41.2 % (42.0-52.0); Hemoglobin 14.5 g/dl (14.0-18.0); Immature Granulocytes % (auto) 0.6 %; Lymphocytes # (auto) 1.29 K/uL (1.20-3.40); Lymphocytes % (auto) 7.3 %; Mean Corpuscular Hemoglobin 30.7 pg (25.0-34.0); Mean Corpuscular Hgb Conc 35.2 g/dL (32.0-36.0); Mean Corpuscular Volume 87.1 fL (80.0-100.0); Mean Platelet Volume 9.9 fL (9.4-12.4); Monocytes # (auto) 1.01 K/uL (0.11-0.59); Monocytes % (auto) 5.7 %; Neutrophils # (auto) 15.22 K/uL (1.40-6.50); Neutrophils % (auto) 86.3 %; Platelet Count 434 K/uL (130-400); RDW Coefficient of Variation 18.9 % (11.5-14.5); RDW Standard Deviation 59.6 fL (36.4-46.3); Red Blood Count 4.73 M/uL (4.70-6.10); White Blood Count 17.64 K/ul (4.8-10.8)
--- NOTE | 2024-03-14 09:32 | XCELERA ---
[id number]
[2024-03-14 09:43] LABS: Albumin Globulin Ratio 0.5 (0.9-2); Albumin Level 1.6 gm/dl (3.4-5.0); BUN Creatinine Ratio 47.4 (10-20); Bilirubin,Total 0.3 mg/dl (0.2-1.0); Calcium 7.8 mg/dl (8.6-10.3); Chol HDL Ratio 10.3 (0-5); Creatinine Clr Calc Pharmacy 45.8 ml/min; Magnesium 1.9 mg/dl (1.7-2.4); Phosphorus 5.5 mg/dl (2.5-4.9); Potassium 4.3 mmol/L (3.5-5.1); Total Protein 4.6 gm/dl (6.0-8.3)
[2024-03-14] MEDS ORDERED: HYDROmorphone INJ 1 MG/ML SYRINGE IV PRN (09:45)
[2024-03-14] MEDS ORDERED: ONDANSETRON INJ 2 MG/ML 2 ML VIAL IV PRN (09:45)
[2024-03-14] MEDS ORDERED: ATROPINE SULFATE 0.1 MG/ML 10ML SYR IV PRN (09:45)
[2024-03-14 09:49] LABS: ANTI-Xa, UFH(UnfractionatedHep 0.13 IU/ml (0.3-0.7)
[2024-03-14] MEDS: ceFAZolin 2000MG 2,000 MG/15 ML SYR IV SCH (09:54)
[2024-03-14] MEDS ORDERED: ETOMIDATE 2 MG/ML 20 ML VIAL IV ONE (10:25)
[2024-03-14] MEDS ORDERED: HEPARIN SOD (PORCINE) 1000 UNIT/ML ONE (10:52)
[2024-03-14] MEDS: THROMBIN FOR SOLN 20000 UNIT KIT ONE (10:54)
[2024-03-14] MEDS: GELATIN SPONGE SZ 100 ONE (10:54)
[2024-03-14] MEDS: ceFAZolin 330 MG/ML 1 GM VIAL ONE (10:54)
[2024-03-14] MEDS: HEPARIN (PORCINE) 1000 UNIT/ML 10 ML (CATH LAB USE ONLY) ONE (11:35)
[2024-03-14] MEDS ORDERED: SUGAMMADEX SODIUM 200 MG/2 ML VIAL IV ONE (11:38)
[2024-03-14] MEDS: VISIPAQUE IV PRN (11:50)
[2024-03-14] MEDS ORDERED: ROCURONIUM BROMIDE 10 MG/ML 5 ML VIAL IV ONE (12:27)
--- NOTE | 2024-03-14 12:27 | Post Operative Brief Note ---
Immediate Post Op Note Date of Surgery March 14, 2024 Pre & Post Diagnosis Operation Date: 03/14/24 10:15 Pre-Op Diagnosis: Left lower extremity occlusion Post-Op Diagnosis: Left lower extremity occlusion I identified the patient and participated in the time-out.: Yes Procedure Operation Date: 03/14/24 10:15 Actual Procedures p Mechanical thrombectomy left superficial femoral artery and anterior tibial artery, ASSISTANT SECRETARY and stenting left superficial femoral artery, institution of TPA, left lower extremity arteriogram, ultrasound right common femoral artery(Left) - Abhishek Smith MD Surgeon Abhishek Smith MD Lapel Baster none Estimated Blood Loss 20 Findings Consistent with Post-Op Diagnosis Drains Sousa Catheter Anesthesia Type General Complications none Disposition Accompanied Patient To Recovery: No Disposition: Recovery Room
[2024-03-14] MEDS: HEPARIN SODIUM/DEXTROSE 25,000 UNIT/500 ML BAG IV SCH (12:58)
[2024-03-14] MEDS ORDERED: SODIUM CHLORIDE 0.9% 50 ML IV PRN (13:00)
[2024-03-14] MEDS ORDERED: SODIUM CHLORIDE 0.9% 100 ML IV PRN (13:00)
[2024-03-14 13:14] LABS: Basophils # (auto) 0.03 K/uL (0.00-0.20); Basophils % (auto) 0.2 %; Hematocrit (blood only) 43.6 % (42.0-52.0); Hemoglobin 15.3 g/dl (14.0-18.0); Immature Granulocytes # (auto) 0.11 K/uL (0.01-0.20); Immature Granulocytes % (auto) 0.6 %; Lymphocytes # (auto) 0.89 K/uL (1.20-3.40); Lymphocytes % (auto) 5.2 %; Mean Corpuscular Hemoglobin 30.9 pg (25.0-34.0); Mean Corpuscular Hgb Conc 35.1 g/dL (32.0-36.0); Mean Corpuscular Volume 88.1 fL (80.0-100.0); Monocytes # (auto) 0.69 K/uL (0.11-0.59); Neutrophils # (auto) 15.54 K/uL (1.40-6.50); Platelet Count 435 K/uL (130-400); RDW Coefficient of Variation 19.3 % (11.5-14.5); RDW Standard Deviation 60.7 fL (36.4-46.3); Red Blood Count 4.95 M/uL (4.70-6.10); White Blood Count 17.26 K/ul (4.8-10.8)
[2024-03-14] MEDS: ALTEPLASE, RECOMBINANT 24 MG in SODIUM CHLORIDE 0.9% 250 ML IV SCH (13:31)
[2024-03-14 13:49] LABS: Fibrinogen 427 mg/dl (184-400); Partial Thromboplastin Ratio 1.2; Partial Thromboplastin Time 33 Seconds (21-31)
--- NOTE | 2024-03-14 14:02 | Anesthesiology Progress Note ---
Date of Service March 14, 2024 Anesthesia Post Procedure Vital Signs Vital Signs: Temp Pulse Pulse Resp BP Pulse Ox O2 Del Method 03/14/24 13:51 Nasal Cannula 03/14/24 12:47 54 L 12 142/76 H 11 L Oxymask 03/14/24 12:25 52 L 19 153/85 H 98 Oxymask 03/14/24 12:10 36.5 C 54 L 8 L 147/86 H 99 Oxymask 03/14/24 09:24 36.6 C 64 18 134/69 96 Room Air 03/14/24 07:22 36.3 C L 59 L 18 128/55 L 94 Room Air 03/14/24 07:15 58 L 03/14/24 03:29 36.4 C L 59 L 18 133/66 94 Room Air 03/13/24 23:09 36.5 C 65 18 144/75 H 91 Room Air 03/13/24 22:00 61 03/13/24 19:35 36.3 C L 63 17 126/76 92 Room Air 03/13/24 17:00 70 03/13/24 16:39 36.3 C L 61 18 149/77 H 93 Room Air 03/13/24 15:00 65 18 160/81 H 96 Room Air 03/13/24 14:44 60 16 143/84 H 95 Room Air 03/13/24 14:39 59 L 11 L 143/84 H 94 Room Air 03/13/24 14:15 16 134/70 O2 Flow Rate 03/14/24 13:51 4 03/14/24 12:47 4 03/14/24 12:25 4 03/14/24 12:10 4 03/14/24 09:24 03/14/24 07:22 03/14/24 07:15 03/14/24 03:29 03/13/24 23:09 03/13/24 22:00 03/13/24 19:35 03/13/24 17:00 03/13/24 16:39 03/13/24 15:00 03/13/24 14:44 03/13/24 14:39 03/13/24 14:15 above pulse ov is a mistake - he is 98% Transfer of Care Handoff Completed per policy Notes Mental Status: alert / awake / arousable Patient Amnestic to Procedure: Yes Nausea / Vomiting: adequately controlled Pain: adequately controlled Airway Patency, RR, SpO2: stable & adequate BP & HR: stable & adequate Hydration State: stable & adequate Anesthetic Complications: no major complications apparent
[2024-03-14] MEDS: SODIUM CHLORIDE 0.9% 500 ML IV SCH (14:17)
[2024-03-14] MEDS: cefTRIAXone SODIUM 2,000 MG/50 ML BAG IV SCH (14:17)
[2024-03-14] MEDS: HEPARIN 25000 UNIT/500 ML D5W IV ONE (14:37)
--- NOTE | 2024-03-14 15:20 | Critical Care Consultation ---
Date of Consultation March 14, 2024 Assessment & Plan (1) Occlusion of artery of lower extremity: Postop day 0 from mechanical thrombectomy -Continuous tPA per vascular surgery (2) Left leg pain: (3) Ischemic leg: (4) GARY (acute kidney injury): Present on admission. -Avoid nephrotoxic medications History of Present Illness Reason for Consultation: Postprocedural tPA infusion Attending Physician: Munir Hough MD History of Present Illness Patient is a 73-year-old male with a history of peripheral arterial disease who presented with acute leg ischemia. Patient was seen in the ED for acute lower extremity pain was admitted to the hospital with an arterial ultrasound demonstrating a popliteal occlusion with no patent arteries to the foot. Today the patient went to the operating room with vascular surgery and underwent a mechanical thrombectomy of the left superficial femoral artery anterior tibial artery. Patient is receiving an infusion of tPA through indwelling catheters. Patient reports the pain has by enlarge resolved and his lower extremity and is now generally just numb. Mildly uncomfortable having to remain in a supine position. Otherwise no significant complaint. Allergies Allergy/AdvReac Type Severity Reaction Status Date / Time dorzolamide Allergy Severe eyes Verified 01/18/24 11:40 swollen azithromycin Allergy Intermediate Rash Verified 01/18/24 11:40 Home Medications Medication Instructions Recorded Confirmed Type furosemide 20 mg tablet 40 mg PO BID 01/18/24 03/13/24 History midodrine 10 mg tablet 10 mg PO TID #60 tabs 02/04/24 03/13/24 Rx finasteride 5 mg tablet 5 mg PO DAILY 03/13/24 03/13/24 History latanoprost 0.005 % eye drops 1 drp OPB DAILY 03/13/24 03/13/24 History Patient History Medical History (Updated 03/14/24 @ 15:57 by Champ Marino DO) Acute on chronic renal insufficiency Hypoalbuminemia Cirrhosis Orthostatic hypotension Syncope Sensorineural hearing loss (SNHL) of left ear with restricted hearing of right ear Seizure Grand mal (most recent 1978) Migraine History of palpitations BPH (benign prostatic hyperplasia) Bulging disc Osteoarthritis Glaucoma Restless leg syndrome Pulmonary embolism 1985 post-op (back surgery) Surgical History History of reverse total replacement of right shoulder joint right History of sinus surgery Endoscopic sinus surgery (08/09/18): LMA#5, atraumatic at [facility]. No issues noted per post-op anesthesia progress note. H/O eye surgery Detached retina repairs-bilateral H/O sinus surgery History of repair of rotator cuff R/L History of carpal tunnel release R/L History of discectomy Lumbar History of colonoscopy Dr. Richards with polypectomy History of tooth extraction History of cataract surgery R/L Family History Father Family hx of colon cancer Cancer Colorectal cancer Heart disease Grandfather (Maternal) Family hx of colon cancer Grandfather Colorectal cancer Social History Smoking Status: Current every day smoker Tobacco Type: Cigarettes Cigarettes Per Day: 3; Second Hand Exposure: No; Do You Dip or Chew Tobacco: No; Hx Alcohol Use: No Hx Substance Use: No Preferred Language: Kenyan Communication Ability: Effective Help Desk Administrator Required: No Beliefs That Will Affect Care: None marital status: Current Living Situation: Spouse Feels Safe at Home: Yes Diet: regular Assistive Devices: None Physical Exam Physical Exam: General: Alert. nontoxic. Skin: Warm, dry, Head: Atraumatic Ears, nose, mouth and throat: airway patent Cardiovascular: Normal peripheral perfusion Respiratory: no respiratory distress Gastrointestinal: Non distended Musculoskeletal: 1+ edema of the lower extremity. Results & Data Results & Data Vital Signs (Past 12 Hours) Vital Signs Temp Pulse Pulse Resp BP Pulse Ox O2 Del Method 03/14/24 13:51 Nasal Cannula 03/14/24 12:47 54 L 12 142/76 H 11 L Oxymask 03/14/24 12:25 52 L 19 153/85 H 98 Oxymask 03/14/24 12:10 36.5 C 54 L 8 L 147/86 H 99 Oxymask 03/14/24 09:24 36.6 C 64 18 134/69 96 Room Air 03/14/24 07:22 36.3 C L 59 L 18 128/55 L 94 Room Air 03/14/24 07:15 58 L 03/14/24 03:29 36.4 C L 59 L 18 133/66 94 Room Air O2 Flow Rate 03/14/24 13:51 4 03/14/24 12:47 4 03/14/24 12:25 4 03/14/24 12:10 4 03/14/24 09:24 03/14/24 07:22 03/14/24 07:15 03/14/24 03:29 Critical Care Results & Data Vital Signs (Past 12 Hours) Vital Signs Temp Pulse Pulse Resp BP BP Pulse Ox 03/14/24 15:30 159/84 H 03/14/24 15:30 60 14 97 03/14/24 15:27 65 14 95 03/14/24 15:21 36.4 C L 03/14/24 15:09 48 L 16 97 03/14/24 15:00 151/73 H 03/14/24 15:00 03/14/24 14:57 45 L 97 03/14/24 14:51 49 L 16 97 03/14/24 14:36 54 L 18 98 03/14/24 14:30 154/74 H 03/14/24 14:24 52 L 14 98 03/14/24 14:18 52 L 12 97 03/14/24 14:15 153/75 H 03/14/24 14:00 145/74 H 03/14/24 13:54 45 L 98 03/14/24 13:51 48 L 14 97 03/14/24 13:51 03/14/24 13:30 145/73 H 03/14/24 13:24 49 L 16 98 03/14/24 13:15 162/75 H 03/14/24 13:15 51 L 16 98 03/14/24 13:03 52 L 8 L 99 03/14/24 13:00 157/76 H 03/14/24 12:47 54 L 12 142/76 H 11 L 03/14/24 12:25 52 L 19 153/85 H 98 03/14/24 12:10 36.5 C 54 L 8 L 147/86 H 99 03/14/24 09:24 36.6 C 64 18 134/69 96 03/14/24 07:22 36.3 C L 59 L 18 128/55 L 94 03/14/24 07:15 58 L O2 Del Method O2 Flow Rate 03/14/24 15:30 03/14/24 15:30 Nasal Cannula 2 03/14/24 15:27 03/14/24 15:21 03/14/24 15:09 03/14/24 15:00 03/14/24 15:00 Nasal Cannula 4 03/14/24 14:57 03/14/24 14:51 Nasal Cannula 2 03/14/24 14:36 03/14/24 14:30 03/14/24 14:24 03/14/24 14:18 03/14/24 14:15 03/14/24 14:00 03/14/24 13:54 03/14/24 13:51 03/14/24 13:51 Nasal Cannula 4 03/14/24 13:30 03/14/24 13:24 03/14/24 13:15 03/14/24 13:15 Nasal Cannula 4 03/14/24 13:03 03/14/24 13:00 03/14/24 12:47 Oxymask 4 03/14/24 12:25 Oxymask 4 03/14/24 12:10 Oxymask 4 03/14/24 09:24 Room Air 03/14/24 07:22 Room Air 03/14/24 07:15 Lab & Micro Results (Past 24 Hours) RBC 4.95 M/uL (4.70-6.10) 03/14/24 WBC 17.26 K/ul (4.8-10.8) H 03/14/24 Hgb 15.3 g/dl (14.0-18.0) 03/14/24 Hct 43.6 % (42.0-52.0) 03/14/24 MCV 88.1 fL (80.0-100.0) 03/14/24 MCH 30.9 pg (25.0-34.0) 03/14/24 MCHC 35.1 g/dL (32.0-36.0) 03/14/24 RDW Standard Deviation 60.7 fL (36.4-46.3) H 03/14/24 RDW Coefficient of Variation 19.3 % (11.5-14.5) H 03/14/24 Plt Count 435 K/uL (130-400) H 03/14/24 MPV 10.0 fL (9.4-12.4) 03/14/24 Neutrophils (%) (Auto) 90.0 % 03/14/24 Lymphocytes (%) (Auto) 5.2 % 03/14/24 Monocytes # (Auto) 0.69 K/uL (0.11-0.59) H 03/14/24 Eosinophils # (Auto) 0.00 K/uL (0.00-0.50) 03/14/24 Immature Granulocyte % (Auto) 0.6 % 03/14/24 Neutrophils # (Auto) 15.54 K/uL (1.40-6.50) H 03/14/24 Lymphocytes # (Auto) 0.89 K/uL (1.20-3.40) L 03/14/24 Monocytes # (Auto) 0.69 K/uL (0.11-0.59) H 03/14/24 Eosinophils # (Auto) 0.00 K/uL (0.00-0.50) 03/14/24 Basophils # (Auto) 0.03 K/uL (0.00-0.20) 03/14/24 Immature Granulocyte # (Auto) 0.11 K/uL (0.01-0.20) 4 Na 139 mmol/L (136-145) 03/14/24 K 4.3 mmol/L (3.5-5.1) 03/14/24 Cl 108 mmol/L (98-107) H 03/14/24 CO2 24 mmol/L (21-32) 03/14/24 Anion Gap 7 (3-11) 03/14/24 BUN 82 mg/dl (6-23) H 03/14/24 Creatinine 1.73 mg/dl (0.6-1.4) H 03/14/24 BUN/Creatinine Ratio 47.4 (10-20) H 03/14/24 Glu 118 mg/dl (70-99(Fasting)) H 03/14/24 Ca 7.8 mg/dl (8.6-10.3) L 03/14/24 Phosphorus Level 5.5 mg/dl (2.5-4.9) H 03/14/24 Total Bilirubin 0.3 mg/dl (0.2-1.0) 03/14/24 AST 52 U/L (13-39) H 03/14/24 ALT 32 U/L (7-52) 03/14/24 Alkaline Phosphatase 627 U/L (34-104) H 03/14/24 TP 4.6 gm/dl (6.0-8.3) L 03/14/24 Albumin 1.6 gm/dl (3.4-5.0) L 03/14/24 Globulin 3.0 gm/dl (2.5-4.0) 03/14/24 Albumin/Globulin Ratio 0.5 (0.9-2) L 03/14/24 Mg 1.9 mg/dl (1.7-2.4) 03/14/24 08:49 Calcium Level 7.8 mg/dl (8.6-10.3) L 03/14/24 08:49 Diagnostic Findings (Past 24 Hours) Duplex Scan Lower Extremity Artery 03/13/24 17:51 Exam(s): US ARTERIAL RIGHT LOWER EXTREMITY EXAM: US Duplex Right Lower Extremity Arteries CLINICAL HISTORY: Reason for exam: PAD. TECHNIQUE: Real-time duplex ultrasound scan of the right lower extremity arteries integrating B-mode two-dimensional vascular structure, Doppler spectral analysis and color flow Doppler imaging. COMPARISON: None. FINDINGS: Right common femoral artery: There is elevated peak systolic flow velocity: 233 cm/s. No occlusion . Normal triphasic waveform. Right superficial femoral artery: No acute findings. No occlusion or significant stenosis on color flow and spectral Doppler imaging. Normal waveform. Right popliteal artery: No acute findings. No occlusion or significant stenosis on color flow and spectral Doppler imaging. Normal waveform. Right calf/foot arteries: No acute findings. No occlusion or significant stenosis on color flow and spectral Doppler imaging. Triphasic/biphasic waveforms Soft tissues: Unremarkable.. 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 Mild/moderate arterial atherosclerosis below the knee joint. No high-grade stenosis or occlusion demonstrated in the rest of the right lower extremity arteries. . Electronically signed by: Ramana Flynn MD, DABR 03/14/24 01:42 AM Chest X-Ray 03/13/24 17:59 Exam(s): XR CXR 1 VIEW EXAM: XR Chest, 1 View CLINICAL HISTORY: Reason for exam: R/o infection. TECHNIQUE: Frontal view of the chest. COMPARISON: 02/07/2024 FINDINGS: Lungs: Underexpanded lungs. Bilateral perihilar prominent bronchovascular/interstitial markings. Right basilar linear atelectatic changes. No consolidation. Pleural space: Eventration of the right hemidiaphragm. Blunting of right costophrenic sulcus. No pneumothorax. Heart: Stable mildly enlarged heart size. Mediastinum: Atherosclerotic mild tortuosity of the thoracic aorta. Normal mediastinal contour. Bones/joints: Osteopenia. No acute fracture. Total right shoulder replacement. Degenerative changes of the spine and shoulders. IMPRESSION: Low lung volumes. Prominent peripheral pulmonary vascular/interstitial markings, mild pulmonary interstitial edema versus infiltrates. Recommend clinical correlation. . Electronically signed by: Ramana Flynn MD, MARIIR 03/13/24 20:06 PM I & O Totals 24 Hours 03/13/24 03/14/24 03/15/24 06:59 06:59 06:59 Intake Total 438.184 / 438.184 24.367 / 24.367 Output Total 450 / 450 150 / 150 Balance -11.816 / -11.816 -125.633 / -125.633 Cumulative 03/13/24 12:13 thru 03/14/24 13:49 Intake Total 462.551 Output Total 600 Balance -137.449 RT Ventilator Mngmt (Last Documented) Ventilator Ordered Settings Respiratory Rate 14 03/14/24 15:30 Ventilator - PT Measurements Respiratory Rate 14 Coding Level of Care Code 68310 IN/OBS CONSULT LVL 3,45M Diagnoses Occlusion of artery of lower extremity I70.209 Left leg pain M79.605 Ischemic leg I99.8 GARY (acute kidney injury) N17.9
[2024-03-14] MEDS: oxyCODONE/ACETAMINOPHEN 5mg/325mg TAB PO PRN (15:58)
[2024-03-14] MEDS: ONDANSETRON INJ 2 MG/ML 2 ML VIAL IV PRN (16:07)
[2024-03-14] MEDS: HYDROmorphone INJ 1 MG/ML SYRINGE IV PRN (16:19)
[2024-03-14] MEDS: ceFAZolin 2000MG 2,000 MG/15 ML SYR IV ONE (18:06)
[2024-03-14 19:28] LABS: Hemoglobin 16.6 g/dl (14.0-18.0); Mean Corpuscular Hemoglobin 30.1 pg (25.0-34.0); Mean Corpuscular Hgb Conc 33.9 g/dL (32.0-36.0); Mean Corpuscular Volume 88.9 fL (80.0-100.0); Mean Platelet Volume 9.5 fL (9.4-12.4); Platelet Count 390 K/uL (130-400); RDW Coefficient of Variation 20.1 % (11.5-14.5); RDW Standard Deviation 62.2 fL (36.4-46.3); Red Blood Count 5.51 M/uL (4.70-6.10); White Blood Count 22.21 K/ul (4.8-10.8)
[2024-03-14 20:08] LABS: Anisocytosis Present; Basophils # (auto) 0.03 K/uL (0.00-0.20); Basophils % (auto) 0.1 %; Immature Granulocytes # (auto) 0.14 K/uL (0.01-0.20); Immature Granulocytes % (auto) 0.6 %; Lymphocytes # (auto) 0.67 K/uL (1.20-3.40); Monocytes # (auto) 1.37 K/uL (0.11-0.59); Monocytes % (auto) 6.2 %; Neutrophils % (auto) 90.1 %; Polychromasia 1+
[2024-03-14 20:25] LABS: Fibrinogen 521 mg/dl (184-400); Partial Thromboplastin Ratio 1.3; Partial Thromboplastin Time 35 Seconds (21-31)
[2024-03-15] MEDS: SODIUM CHLORIDE 0.9% 500 ML IV ONE ×3 (00:44→19:33)
[2024-03-15 01:07] LABS: Basophils # (auto) 0.03 K/uL (0.00-0.20); Basophils % (auto) 0.1 %; Hemoglobin 16.3 g/dl (14.0-18.0); Immature Granulocytes # (auto) 0.34 K/uL (0.01-0.20); Immature Granulocytes % (auto) 1.5 %; Lymphocytes # (auto) 0.66 K/uL (1.20-3.40); Lymphocytes % (auto) 2.9 %; Mean Corpuscular Hemoglobin 30.2 pg (25.0-34.0); Mean Corpuscular Volume 89.1 fL (80.0-100.0); Mean Platelet Volume 9.5 fL (9.4-12.4); Monocytes # (auto) 1.76 K/uL (0.11-0.59); Monocytes % (auto) 7.8 %; Neutrophils % (auto) 87.7 %; Platelet Count 365 K/uL (130-400); RDW Coefficient of Variation 20.4 % (11.5-14.5); RDW Standard Deviation 62.9 fL (36.4-46.3); Red Blood Count 5.39 M/uL (4.70-6.10); White Blood Count 22.49 K/ul (4.8-10.8)
[2024-03-15] MEDS: ALTEPLASE, RECOMBINANT 12 MG in SODIUM CHLORIDE 0.9% 250 ML IV SCH (01:14)
[2024-03-15] MEDS ORDERED: ALTEPLASE, RECOMBINANT 12 MG in SODIUM CHLORIDE 0.9% 250 ML IV SCH (01:15)
[2024-03-15 01:24] LABS: Anisocytosis Present
[2024-03-15 01:34] LABS: Fibrinogen 387 mg/dl (184-400); Partial Thromboplastin Ratio 1.4; Partial Thromboplastin Time 37 Seconds (21-31)
[2024-03-15] MEDS: FUROSEMIDE INJ 20 MG/2 ML VIAL IV STA (04:15)
[2024-03-15 05:27] LABS: Basophils # (auto) 0.04 K/uL (0.00-0.20); Basophils % (auto) 0.2 %; Hematocrit (blood only) 47.8 % (42.0-52.0); Hemoglobin 15.9 g/dl (14.0-18.0); Immature Granulocytes % (auto) 1.5 %; Lymphocytes # (auto) 1.04 K/uL (1.20-3.40); Lymphocytes % (auto) 5.2 %; Mean Corpuscular Hemoglobin 29.9 pg (25.0-34.0); Mean Corpuscular Hgb Conc 33.3 g/dL (32.0-36.0); Mean Platelet Volume 9.7 fL (9.4-12.4); Monocytes % (auto) 8.5 %; Neutrophils # (auto) 16.98 K/uL (1.40-6.50); Neutrophils % (auto) 84.6 %; Nucleated RBC # (auto) 0.02 K/uL (0.00-0.12); Nucleated RBC % (auto) 0.1 %; Platelet Count 363 K/uL (130-400); RDW Coefficient of Variation 20.4 % (11.5-14.5); Red Blood Count 5.31 M/uL (4.70-6.10); White Blood Count 20.06 K/ul (4.8-10.8)
[2024-03-15 05:42] LABS: Calcium 7.8 mg/dl (8.6-10.3); Creatinine Clr Calc Pharmacy 35.2 ml/min; Potassium 5.1 mmol/L (3.5-5.1)
[2024-03-15 05:56] LABS: Anisocytosis Present
[2024-03-15 06:02] LABS: Fibrinogen 319 mg/dl (184-400); Partial Thromboplastin Ratio 1.4; Partial Thromboplastin Time 39 Seconds (21-31)
--- NOTE | 2024-03-15 06:38 | Critical Care Progress Note ---
Date of Service March 15, 2024 Assessment & Plan (1) Occlusion of artery of lower extremity: (2) GARY (acute kidney injury): Plan Reason for critical care: LLE arterial occlusion Neuro: Dilaudid for pain control CV: LLE acute limb ischemia - POD#1 s/p mechanical thrombectomy, LLE still appears severely hypoperfused, tPA discontinued, continue Heparin. Vascular surgery to take patient back to OR for likely left AKA. Resp: Overnight supplemental O2 requirement, currently stable on room air. GI: No acute concerns. Consider escalating bowel regimen if persistently requiring opioids for pain control. Renal: GARY with worsening creatinine 1.7 -> 2.25, likely multifactorial in the setting of limb ischemia, contrast exposure, relative intravascular volume contraction. Continue IV NS @125ml/hour Avoid nephrotoxic meds. : Urine culture pending WBC 20, continue empiric Rocephin ID: as above Lines/Access: peripheral IV DVT ppx: Heparin Dispo: pending operative management Admission and Anticipated Discharge Date Admission Date: March 13, 2024 Supervising Physician Co-Signing Physician Notes Dr. Still was resident physician during care of patient. I separately evaluated patient for [place] portions of the history and the exam. I was present during the critical portion of medical decision making, and I discussed the case with the resident. I generally agree with the findings and plan. Patient's tPA is off, planned operative intervention today with likelihood of proceeding with lower extremity amputation. Worsening GARY. Awaiting postoperative report and disposition pending operative management. Subjective Patient reports severe overnight pain, now improved after receiving a dose of Dilaudid. Describes LLE as numb but not painful at present. Denies h/o respiratory issues or baseline supplemental O2 requirement but states that his shortness of breath has been progressively worsening. Review of Systems Review of Systems: as per HPI Physical Exam Constitutional: WD/WN, vitals as above Respiratory: normal respiratory effort; no respiratory distress Cardiovascular: Extremities: + abnormal capillary refill Absent distal pulses in LLE, cool to touch from knee down with diffuse pallor/mottling. 1+ edema Psychiatric: A+Ox3, euthymic affect Results & Data Results & Data Vital Signs (Past 12 Hours) Vital Signs Temp Pulse Resp BP Pulse Ox O2 Del Method O2 Flow Rate 03/15/24 06:09 75 23 95 03/15/24 06:00 36.6 C 127/62 03/15/24 05:51 84 30 H 92 03/15/24 05:00 87 21 96 03/15/24 05:00 161/67 H 03/15/24 04:09 78 10 L 93 03/15/24 04:00 136/73 03/15/24 04:00 136/73 03/15/24 03:45 68 3 L 95 03/15/24 03:06 66 4 L 97 03/15/24 03:01 119/68 03/15/24 03:01 119/68 03/15/24 02:54 66 4 L 96 03/15/24 02:11 82 03/15/24 02:00 102/57 L 03/15/24 02:00 70 3 L 97 03/15/24 01:03 75 2 L 93 03/15/24 01:00 109/59 L 03/15/24 01:00 109/59 L 03/15/24 00:57 79 4 L 96 03/15/24 00:03 36.4 C L 82 14 95 Nasal Cannula 4 03/15/24 00:00 126/72 03/15/24 00:00 126/72 03/14/24 23:57 75 8 L 95 03/14/24 23:09 69 0 L 96 03/14/24 23:00 102/62 03/14/24 23:00 102/62 03/14/24 22:57 75 0 L 96 03/14/24 22:12 68 4 L 96 03/14/24 22:00 110/65 03/14/24 22:00 110/65 03/14/24 21:54 68 5 L 96 03/14/24 21:49 113/69 03/14/24 21:48 83 12 96 03/14/24 21:45 73 5 L 95 03/14/24 21:36 73 4 L 95 03/14/24 21:21 76 6 L 96 03/14/24 21:12 75 10 L 113/69 96 03/14/24 21:03 79 3 L 94 03/14/24 20:54 83 8 L 96 03/14/24 20:30 79 5 L 95 03/14/24 20:30 116/74 03/14/24 20:15 122/68 03/14/24 20:00 Nasal Cannula 4 03/14/24 20:00 81 4 L 95 03/14/24 19:45 84 6 L 94 03/14/24 19:45 105/73 03/14/24 19:45 105/73 03/14/24 19:33 85 9 L 96 03/14/24 19:25 128/73 03/14/24 19:00 134/76 Resident Activity Tracking Resident Involvement: Resident Care Provided Care Provided: Adult [facility]
[2024-03-15] MEDS: SODIUM CHLORIDE 0.9% 1,000 ML IV SCH (07:21)
--- NOTE | 2024-03-15 07:49 | Surgery Progress Note ---
Date of Service March 15, 2024 Assessment & Plan (1) Ischemic leg: Plan: TPA did not improve flow to left lower leg. Leg is severely ischemic. Patient no developing GARY. Would recommend a left AKA on an emergent basis. Discussed this with the patient and his . She is on her way in to the hospital at this time. (2) GARY (acute kidney injury): Plan: Kidney function worsened. Most likely secondary to muscle breakdown, third spacing of fluid as he has total body edema, and a small amount of contrast during the procedure yesterday. Admission and Anticipated Discharge Date Admission Date: March 13, 2024 Subjective Patient complains of severe left leg pain. Physical Exam Constitutional: WD/WN, vitals as above Respiratory: normal respiratory effort, lungs clear to auscultation Cardiovascular: Rate/Rhythm: regular rate and regular rhythm Vessels: + posterior tibial pulses abnormal (none on left) and + dorsalis pedis pulses abnormal (none on left) Extremities: + calf tenderness; + abnormal capillary refill left leg cool from knee distally. No cap refill. Foot mottled. No sensation in left foot. Minimal toe movement in left foot Psychiatric: Orientation: alert and oriented x 3 Results & Data Vital Signs (Past 12 Hours) Vital Signs Temp Pulse Resp BP Pulse Ox O2 Del Method O2 Flow Rate 03/15/24 06:09 75 23 95 03/15/24 06:00 36.6 C 127/62 03/15/24 05:51 84 30 H 92 03/15/24 05:00 87 21 96 03/15/24 05:00 161/67 H 03/15/24 04:09 78 10 L 93 03/15/24 04:00 136/73 03/15/24 04:00 136/73 03/15/24 03:45 68 3 L 95 03/15/24 03:06 66 4 L 97 03/15/24 03:01 119/68 03/15/24 03:01 119/68 03/15/24 02:54 66 4 L 96 03/15/24 02:11 82 03/15/24 02:00 102/57 L 03/15/24 02:00 70 3 L 97 03/15/24 01:03 75 2 L 93 03/15/24 01:00 109/59 L 03/15/24 01:00 109/59 L 03/15/24 00:57 79 4 L 96 03/15/24 00:03 36.4 C L 82 14 95 Nasal Cannula 4 03/15/24 00:00 126/72 03/15/24 00:00 126/72 03/14/24 23:57 75 8 L 95 03/14/24 23:09 69 0 L 96 03/14/24 23:00 102/62 03/14/24 23:00 102/62 03/14/24 22:57 75 0 L 96 03/14/24 22:12 68 4 L 96 03/14/24 22:00 110/65 03/14/24 22:00 110/65 03/14/24 21:54 68 5 L 96 03/14/24 21:49 113/69 03/14/24 21:48 83 12 96 03/14/24 21:45 73 5 L 95 03/14/24 21:36 73 4 L 95 03/14/24 21:21 76 6 L 96 03/14/24 21:12 75 10 L 113/69 96 03/14/24 21:03 79 3 L 94 03/14/24 20:54 83 8 L 96 03/14/24 20:30 79 5 L 95 03/14/24 20:30 116/74 03/14/24 20:15 122/68 03/14/24 20:00 Nasal Cannula 4 03/14/24 20:00 81 4 L 95 03/14/24 19:45 84 6 L 94 03/14/24 19:45 105/73 03/14/24 19:45 105/73
--- NOTE | 2024-03-15 08:43 | Hospitalist Progress Note ---
Date of Service March 15, 2024 Assessment & Plan (1) Occlusion of artery of lower extremity: Plan This is a 73y/o M with PMHx significant for dyslipidemia, peripheral vascular disease, Buerger's disease, HTN, BPH with obstruction/lower urinary tract symptoms, urinary retention, bilateral renal cyst, epilepsy, history of pulmonary embolism, monoclonal IgG kappa gammopathy, orthostatic hypotension, cirrhosis with ascites, CKD stage III and tobacco use disorder who presented to the ED on 03/13/2024 for evaluation of left lower leg pain and was found to have an occlusion of the distal left calf vessels on arterial ultrasound imaging. LLE Arterial Occlusion, Buerger's Disease: LLE Arterial Doppler US --> Extensive atherosclerotic plaque within the LLE, findings consistent with a stenosis (likely severe) within the mid L superficial femoral artery, markedly diminished flow within the L calf vessels and minimal flow within the proximal L calf vessels without definite distal flow suggesting occlusion of the distal L calf vessels. POD#1 s/p mechanical thrombectomy, LLE severely ischemic this AM, vascular discontinued tPA, Heparin POD#0 L [id number] amputation, removal of tPA catheter right groin, mechanical closure right common femoral artery by Dr. Smith Post-op mgmt in ICU Consider to add aspirin, statin as able Continue local wound care Needs follow-up with vascular surgery on discharge GARY (acute kidney injury) on CKD III Cr 2.25 (1.73) in setting of limb ischemia, contrast exposure Continue IV NSS @ 125 ml/hr Repeat BMP in AM Leukocytosis, Recent Untreated UTI: WBC 20k CXR reviewed and without any evidence of consolidation Recent outpatient UA done on 03/06/2024 that was infected, which he never received ABX for. Empiric Rocephin discontinued today 2/2 negative urine cx History of Urinary Retention, BPH, CKD: Patient follows with [facility] Nephrology - Dr. Swann. Per most recent outpatient documentation on [facility], it appears that the patient has CKD stage III. His baseline creatinine has been slowly uptrending since November of this year: 1.2 (November) -> 1.3 (January) -> 1.5 (03/05/2024) -> 1.63 on admission. Cr continues to worsen, likely 2/2 contrast use. Home Lasix on hold Continue finasteride, Sousa catheter in place Cirrhosis: reports he was recently diagnosed with cirrhosis back in October of this year. He recently saw Dr. Edmonds with [facility]atology in January. It was thought that his presumed etiology of cirrhosis was drug-induced +/- undiagnosed prior history of fatty liver disease. AST 52, Alk Phos 627 today, continue to monitor. May benefit from liver US. Hyperlipidemia: Lipid panel this admission -> Total cholesterol 380, LDL 322, HDL 37. Patient was previously on statin therapy however this was stopped for unknown reasons. He would benefit from resumption of statin therapy and possibly even daily ASA Seizure Disorder: Patient was previously on phenobarbital, however he stopped taking this medication approximately 2 months ago. He has not had a seizure since 1975. Seizure precautions Tobacco Use Disorder: Patient smokes approximately 3 to 4 cigarettes/day. Encourage smoking cessation. Denies need for nicotine patch at this time History of Proteinuria: He is currently being worked up by [facility] Hematology/Oncology - Dr. Brian Dyson. There was concern of the possibly that the patient may have multiple myeloma as there was evidence of Bence-Cosme proteins in a recent urine sample as an outpatient. He had a bone marrow biopsy done on 03/05/2024 and patient was not made aware of the results. He has a PET scan scheduled next week on 03/19/2024. According to outpatient records on [facility], it was also suspected that the patient may have amyloidosis due to postural hypotension, nephrotic range proteinuria and hepatomegaly. Other Chronic Medical Conditions: BPH/glaucoma --> Can continue home medications for these specific conditions. PRN midodrine for SBP<100 - he takes this TID at home. DVT Prophylaxis: On IV heparin as per above. Code Status: FULL CODE PCP: Rahul Tucker MD Disposition: Admitted in ICU 2/2 vascular surgery. Patient seen in collaboration with Dr. Hough. Please see addendum. I spent a total of 50 minutes coordinating, documenting, and providing care for this patient excluding time spent in the performance of separately billed services. This included personally reviewing all current laboratories and imaging studies, medical reconciliation, outpatient chart review and discussion with specialists. Admission and Anticipated Discharge Date Admission Date: March 13, 2024 Supervising Physician Co-Signing Physician Notes Patient is seen and examined at bedside Drowsy during my encounter secondary to pain medications Patient's left leg ischemia and did not improve with angioplasty. Patient to undergo left AKA Family is aware and at bedside during my encounter Renal function noted to be worsening as well Physical Exam: Vitals signs as noted above General Appearance:Moderately built and nourished, no apparent distress Head: normocephalic, Atraumatic Eyes: normal inspection, EOMI Neck: supple, Trachea midline Respiratory/Chest: Normal breath sounds, CTA, No accessory muscle use Cardiovascular: S1, S2, No murmur Abdomen/GI:Soft, Non tender, Bowel sounds present Extremities/Musculoskeletal:normal inspection, left lower extremity cold, significantly mottled, edematous Neurologic/Psych:AAOX3, grossly no focal neurological deficits Skin: normal color, warm Left lower extremity ischemia/occlusion Peripheral artery disease Hyperlipidemia --S/P mechanical thrombectomy left superficial femoral artery and anterior tibial artery, tPA stenting by Dr. Smith on 03/14/2024 --Given no improvement of limb ischemia with angioplasty, plan for left AKA Appreciate vascular surgery, critical care input Pain control IV heparin discontinued [employer] to quit smoking tobacco use Consider to add aspirin, statin as able Continue local wound care Needs follow-up with vascular surgery on discharge Persistent leukocytosis likely due to above Urine culture negative IV Rocephin discontinued GARY on CKD III Monitor renal function closely Avoid nephrotoxic agents as able Follows with [facility] nephrology as outpatient Consider consulting nephrology if renal function continues to worsen Currently on IV fluids Monitor volume status closely I personally interviewed and examined at bedside. Patient's care is coordinated with Arianna Calderon PA-C. I have reviewed the advanced practitioner's documentation, and I agree with plan of care. Please refer to the documentation above for details of patient's presentation and for discussion of other issues. I spent a total [id number] coordinating, documenting, and providing care for this patient excluding time spent in the performance of separately billed services. Subjective Patient seen and examined in 110. Reporting pain of left lower extremity overnight but improved with IV pain medication. Resting comfortably. Denies any chest pain or shortness of breath. at bedside. Plan for return to OR today. Review of Systems Review of Systems: At least ten systems reviewed and negative except as noted in the HPI. Physical Exam Physical Exam: Gen: WD/WN, NAD, resting in bed, A&Ox3 HEENT: Normocephalic, atraumatic, conjunctivae moist, sclerae anicteric, mucous membranes moist Lung: Clear to Auscultation bilaterally, no wheezes/rales/rhonchi Heart: Regular rate, regular rhythm Abdomen: Soft, NT, ND +BS x 4 Extremities: no edema Skin: + LLE cool, pale, pulses absent with mottling, 1+ BLE edema Results & Data Results & Data Vital Signs (Past 12 Hours) Vital Signs Temp Pulse Resp BP Pulse Ox O2 Del Method O2 Flow Rate 03/15/24 06:09 75 23 95 03/15/24 06:00 36.6 C 127/62 03/15/24 05:51 84 30 H 92 03/15/24 05:00 87 21 96 03/15/24 05:00 161/67 H 03/15/24 04:09 78 10 L 93 03/15/24 04:00 136/73 03/15/24 04:00 136/73 03/15/24 03:45 68 3 L 95 03/15/24 03:06 66 4 L 97 03/15/24 03:01 119/68 03/15/24 03:01 119/68 03/15/24 02:54 66 4 L 96 03/15/24 02:11 82 03/15/24 02:00 102/57 L 03/15/24 02:00 70 3 L 97 03/15/24 01:03 75 2 L 93 03/15/24 01:00 109/59 L 03/15/24 01:00 109/59 L 03/15/24 00:57 79 4 L 96 03/15/24 00:03 36.4 C L 82 14 95 Nasal Cannula 4 03/15/24 00:00 126/72 03/15/24 00:00 126/72 03/14/24 23:57 75 8 L 95 03/14/24 23:09 69 0 L 96 03/14/24 23:00 102/62 03/14/24 23:00 102/62 03/14/24 22:57 75 0 L 96 03/14/24 22:12 68 4 L 96 03/14/24 22:00 110/65 03/14/24 22:00 110/65 03/14/24 21:54 68 5 L 96 03/14/24 21:49 113/69 03/14/24 21:48 83 12 96 03/14/24 21:45 73 5 L 95 03/14/24 21:36 73 4 L 95 03/14/24 21:21 76 6 L 96 03/14/24 21:12 75 10 L 113/69 96 03/14/24 21:03 79 3 L 94 03/14/24 20:54 83 8 L 96 Laboratory Results Short CBC 03/14/24 03/15/24 03/15/24 Range/Units 19:17 00:18 04:56 WBC 22.21 H 22.49 H 20.06 H (4.8-10.8) K/ul Hgb 16.6 16.3 15.9 (14.0-18.0) g/dl Hct 49.0 48.0 47.8 (42.0-52.0) % Plt Count 390 365 363 (130-400) K/uL BMP 03/15/24 04:56 Sodium 138 Potassium 5.1 Chloride 108 H Carbon Dioxide 21 BUN 90 H Creatinine 2.25 H D Glucose 112 H Calcium 7.8 L Diagnostic Findings Duplex Scan Lower Extremity Artery 03/13/24 12:48 LEFT LOWER EXTREMITY ARTERIAL DOPPLER ULTRASOUND CLINICAL HISTORY: Left lower extremity, pale LLE. COMPARISON STUDY: No previous studies for comparison. TECHNIQUE: Grayscale, color and duplex Doppler sonography of the left lower extr emity arterial system was performed. FINDINGS: There is extensive atherosclerotic plaque within the left lower extremity. There is triphasic flow within the left common femoral artery and biphasic flow within the proximal left superficial femoral artery. Elevated peak systolic velocity of 359 cm/s within the mid left superficial femoral artery is noted. Markedly dampened, monophasic flow within the mid to distal left superficial femoral artery is noted. There is monophasic flow within the left popliteal artery. There is markedly dampened, monophasic flow within the proximal left posterior tibial and anterior tibial arteries with no definite flow within the distal aspects of these vessels. 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 There is no flow within the left dorsalis pedis. IMPRESSION: 1. Extensive atherosclerotic plaque within the left lower extremity. 2. Findings consistent with a stenosis, likely severe, within the mid left superficial femoral artery. Markedly dampened, monophasic flow distal to this stenosis. 3. Markedly diminished flow within the left calf vessels. Minimal flow within the proximal left calf vessels without definite distal flow. This suggests occlusion of the distal left calf vessels. These findings are age indeterminate. ACT 112: Negative or not required by law. Electronically signed by: Kulwant Odonnell M.D. 03/13/2024 1:54 PM Duplex Scan Lower Extremity Artery 03/13/24 17:51 Exam(s): US ARTERIAL RIGHT LOWER EXTREMITY EXAM: US Duplex Right Lower Extremity Arteries CLINICAL HISTORY: Reason for exam: PAD. TECHNIQUE: Real-time duplex ultrasound scan of the right lower extremity arteries integrating B-mode two-dimensional vascular structure, Doppler spectral analysis and color flow Doppler imaging. COMPARISON: None. FINDINGS: Right common femoral artery: There is elevated peak systolic flow velocity: 233 cm/s. No occlusion . Normal triphasic waveform. Right superficial femoral artery: No acute findings. No occlusion or significant stenosis on color flow and spectral Doppler imaging. Normal waveform. Right popliteal artery: No acute findings. No occlusion or significant stenosis on color flow and spectral Doppler imaging. Normal waveform. Right calf/foot arteries: No acute findings. No occlusion or significant stenosis on color flow and spectral Doppler imaging. Triphasic/biphasic waveforms Soft tissues: Unremarkable.. IMPRESSION: Elevated velocity of the right [employer]: Hemodynamically significant stenosis. Mild/moderate arterial atherosclerosis below the knee joint. No high-grade stenosis or occlusion demonstrated in the rest of the right lower extremity arteries. . Electronically signed by: Ramana Flynn MD, DABR 03/14/24 01:42 AM Chest X-Ray 03/13/24 17:59 Exam(s): XR CXR 1 VIEW EXAM: XR Chest, 1 View CLINICAL HISTORY: Reason for exam: R/o infection. TECHNIQUE: Frontal view of the chest. COMPARISON: 02/07/2024 FINDINGS: Lungs: Underexpanded lungs. Bilateral perihilar prominent bronchovascular/interstitial markings. Right basilar linear atelectatic changes. No consolidation. Pleural space: Eventration of the right hemidiaphragm. Blunting of right costophrenic sulcus. No pneumothorax. Heart: Stable mildly enlarged heart size. Mediastinum: Atherosclerotic mild tortuosity of the thoracic aorta. Normal mediastinal contour. Bones/joints: Osteopenia. No acute fracture. Total right shoulder replacement. Degenerative changes of the spine and shoulders. IMPRESSION: Low lung volumes. Prominent peripheral pulmonary vascular/interstitial markings, mild pulmonary interstitial edema versus infiltrates. Recommend clinical correlation. . Electronically signed by: Ramana Flynn MD, DABR 03/13/24 20:06 PM
--- NOTE | 2024-03-15 09:33 | Billing Data ---
Date of Service March 15, 2024 Coding Level of Care Code 47555 SUB INP/OBS CARE MIN
[2024-03-15] MEDS ORDERED: fentaNYL citrate PF 100 MCG/2 ML VIAL ONE (11:37)
--- NOTE | 2024-03-15 11:40 | Anesthesiology Consultation ---
Date of Service March 15, 2024 Assessment & Plan (1) Encounter for pre-operative examination: Chart Review Chart Review: Acceptable Risk for Surgery History Surgery Operation Date: 03/14/24 10:15 Proposed Procedures p Left Open Lower Extremity Thrombectomy, Possible Bypass - Abhishek Smith MD Operation Date: 03/15/24 11:45 Proposed Procedures p Left Lower Extremity TPA Re-Check, Possible Intervention, Possible Femoral Popliteal Bypass - Abhishek Smith MD s Amputation Leg - Abhishek Smith MD Height/Weight Height: 5 ft 10 in Weight: 109.1 kg Allergies Allergy/AdvReac Type Severity Reaction Status Date / Time dorzolamide Allergy Severe eyes Verified 01/18/24 11:40 swollen azithromycin Allergy Intermediate Rash Verified 01/18/24 11:40 Medications Home Medications Medication Instructions Recorded Confirmed Last Taken furosemide 20 mg tablet 40 mg PO BID 01/18/24 03/13/24 Unknown midodrine 10 mg tablet 10 mg PO TID #60 tabs 02/04/24 03/13/24 Unknown finasteride 5 mg tablet 5 mg PO DAILY 03/13/24 03/13/24 Unknown latanoprost 0.005 % eye drops 1 drp OPB DAILY 03/13/24 03/13/24 Unknown Active Medications Generic Name Dose Route Start Last Admin Trade Name Freq PRN Reason Stop Dose Admin Finasteride 5 mg 03/14/24 09:00 03/15/24 11:28 Finasteride 5 Mg Tab PO 04/13/24 08:59 Not Given DAILY MICHELLE Hydromorphone HCl 1 mg 03/14/24 16:08 03/15/24 11:09 Hydromorphone Inj 1 Mg/Ml Syringe IV 03/28/24 16:00 1 mg Q1HWA PRN Administration Pain Heparin Sodium/Dextrose 25,000 unit in 500 mls @ 16 mls/hr 03/14/24 13:00 03/14/24 12:58 Heparin Sodium/Dextrose IV 04/13/24 12:59 16 mls/hr .Q24H MICHELLE Administration Ceftriaxone Sodium 2,000 mg in 50 mls @ 100 mls/hr 03/14/24 14:00 03/14/24 15:56 Rocephin IV 03/19/24 13:59 Infused Q24H MICHELLE Infusion Sodium Chloride 1,000 mls @ 125 mls/hr 03/15/24 06:15 03/15/24 07:21 Nss IV 03/16/24 06:14 125 mls/hr .Q8H MICHELLE Administration Iodixanol 100 ml 03/14/24 10:55 03/14/24 11:50 Visipaque IV 03/18/24 10:54 70 ml UD PRN Administration Radiology Use Latanoprost 1 drops 03/14/24 09:00 03/15/24 09:20 Latanoprost 0.005% Op Soln 2.5 Ml Btl OPB 04/13/24 08:59 1 drops DAILY MICHELLE Administration Ondansetron HCl 4 mg 03/14/24 12:13 03/14/24 16:07 Ondansetron Inj 2 Mg/Ml 2 Ml Vial IV 04/13/24 12:12 4 mg Q6H PRN Administration Nausea And Vomiting Oxycodone/Acetaminophen 1 tab 03/13/24 17:25 03/14/24 15:58 Oxycodone/Acetaminophen 5mg/325mg Tab PO 03/27/24 17:24 1 tab Q4H PRN Administration Moderate Pain (Scale 4, 5, 6) NPO Date Last Intake of Fluids: 03/14/24 Time Last Intake of Fluids: 21:00 Last Intake of Fluids Comment: ice chips Date Last Intake of Solids: 03/13/24 Time Last Intake of Solids: 20:00 Past Medical History Medical History Acute on chronic renal insufficiency Hypoalbuminemia Cirrhosis Orthostatic hypotension Syncope Sensorineural hearing loss (SNHL) of left ear with restricted hearing of right ear Seizure Grand mal (most recent 1978) Migraine History of palpitations BPH (benign prostatic hyperplasia) Bulging disc Osteoarthritis Glaucoma Restless leg syndrome Pulmonary embolism 1985 post-op (back surgery) Past Family History Family History Father Family hx of colon cancer Cancer Colorectal cancer Heart disease Grandfather (Maternal) Family hx of colon cancer Grandfather Colorectal cancer Past Surgical History Surgical History History of reverse total replacement of right shoulder joint right History of sinus surgery Endoscopic sinus surgery (08/09/18): LMA#5, atraumatic at [facility] [place]. No issues noted per post-op anesthesia progress note. H/O eye surgery Detached retina repairs-bilateral H/O sinus surgery History of repair of rotator cuff R/L History of carpal tunnel release R/L History of discectomy Lumbar History of colonoscopy Dr. Richards with polypectomy History of tooth extraction History of cataract surgery R/L Social History Smoking Status: Current every day smoker tobacco type: cigarettes Smoking cigarettes per day: 3 Do You Dip or Chew Tobacco: No Hx Alcohol Use: No Alcohol type: beer alcohol intake frequency: a few times a week Hx Substance Use: No substance use type: does not use Physical Exam Vital Signs Last Vital Signs Temp 36.4 C L 03/15/24 11:10 Pulse 80 03/15/24 11:10 Resp 29 H 03/15/24 11:10 BP 109/63 03/15/24 11:10 Pulse Ox 96 03/15/24 11:10 O2 Del Method Nasal Cannula 03/15/24 11:10 O2 Flow Rate 6 03/15/24 11:10 Testing Laboratory Results 03/15/24 04:56 03/15/24 04:56 PT 13.0 Seconds (9.0-12.0) H 03/13/24 13:30 INR 1.2 (0.9-1.1) H 03/13/24 13:30 APTT 39 Seconds (21-31) H 03/15/24 04:56 Urine Color Yellow 03/13/24 Unknown Urine Appearance Cloudy (Clear) A 03/13/24 Unknown Urine pH 5.5 (4.5-7.5) 03/13/24 Unknown Ur Specific [place] 1.021 (1.000-1.030) 03/13/24 Unknown Urine Protein 4+ (Negative) H 03/13/24 Unknown Urine Glucose (UA) Negative (Negative) 03/13/24 Unknown Urine Ketones Negative (Negative) 03/13/24 Unknown Urine Nitrite Negative (Negative) 03/13/24 Unknown Ur Leukocyte Esterase Negative (Negative) 03/13/24 Unknown Urine WBC (Auto) 0-5 /hpf (0-5) 03/13/24 Unknown Urine RBC (Auto) 11-20 /hpf (0-2) H 03/13/24 Unknown U Hyaline Cast (Auto) >20 /lpf (0-2) H 03/13/24 Unknown U Epithel Cells (Auto) 6-10 /hpf (0-2) H 03/13/24 Unknown Urine Bacteria (Auto) None Seen (None Seen) 03/13/24 Unknown Blood Type A Positive 03/13/24 16:50 Antibody Screen NEGATIVE 03/13/24 16:50 Electrocardiogram Date: 11/19/23 Findings: + NSR @ (77) Echocardiogram Date: 03/14/24 EF: 65-70% LV Function: normal Other Findings: + LVH (moderate) Valvular Disease: + no significant valvular disease
[2024-03-15] MEDS ORDERED: ATROPINE SULFATE 0.1 MG/ML 10ML SYR IV PRN (11:47)
[2024-03-15] MEDS ORDERED: ONDANSETRON INJ 2 MG/ML 2 ML VIAL IV PRN (11:47)
[2024-03-15] MEDS ORDERED: HYDROmorphone INJ 1 MG/ML SYRINGE IV PRN (11:47)
[2024-03-15] MEDS: ceFAZolin 2000MG 2,000 MG/15 ML SYR IV ONE (12:29)
[2024-03-15] MEDS ORDERED: ONDANSETRON INJ 2 MG/ML 2 ML VIAL ONE (13:28)
[2024-03-15] MEDS ORDERED: LIDOCAINE 2% 2 ML VIAL/AMP(20MG/ML) INFIL ONE (13:28)
[2024-03-15] MEDS ORDERED: PROPOFOL IV EMULSION 10 MG/ML 20 ML VIAL IV ONE (13:28)
[2024-03-15] MEDS ORDERED: ROCURONIUM BROMIDE 10 MG/ML 5 ML VIAL IV ONE (13:28)
[2024-03-15] MEDS ORDERED: SUGAMMADEX SODIUM 200 MG/2 ML VIAL IV ONE (13:29)
--- NOTE | 2024-03-15 14:07 | Post Operative Brief Note ---
Immediate Post Op Note Date of Surgery March 15, 2024 Pre & Post Diagnosis Operation Date: 03/15/24 11:45 Pre-Op Diagnosis: LEFT LOWER EXTREMITY ARTERIAL OCCLUSION Post-Op Diagnosis: LEFT LOWER EXTREMITY ARTERIAL OCCLUSION I identified the patient and participated in the time-out.: Yes Procedure Operation Date: 03/15/24 11:45 Actual Procedures p LEFT ABOVE THE KNEE AMPUTATION, REMOVAL OF TPA CATHETER RIGHT GROIN,MECHANICAL CLOSURE RIGHT COMMON FEMORAL ARTERY - Abhishek Smith MD Surgeon Abhishek Smith MD Bilingual Sales Consultant Kaitlyn,PAC Estimated Blood Loss 250 Findings Consistent with Post-Op Diagnosis Drains Sousa Catheter Anesthesia Type General Complications none Disposition Accompanied Patient To Recovery: No Disposition: Surgical ICU
[2024-03-15] MEDS ORDERED: PHENYLEPHRINE 100MCG/ML 5ML SYR ONE (14:09)
--- NOTE | 2024-03-15 15:44 | Anesthesiology Progress Note ---
Date of Service March 15, 2024 Anesthesia Post Procedure Vital Signs Vital Signs: Temp Pulse Pulse Resp BP BP Pulse Ox 03/15/24 15:00 36.5 C 91 H 16 136/67 97 03/15/24 14:45 36.5 C 90 18 134/61 97 03/15/24 14:39 128/71 03/15/24 14:39 128/71 03/15/24 14:35 139/69 03/15/24 14:33 86 0 L 98 03/15/24 14:30 135/78 03/15/24 14:30 135/78 03/15/24 14:25 143/79 H 03/15/24 14:25 143/79 H 03/15/24 14:25 143/79 H 03/15/24 14:21 85 0 L 98 03/15/24 14:20 158/71 H 03/15/24 14:20 158/71 H 03/15/24 14:20 158/71 H 03/15/24 14:20 158/71 H 03/15/24 14:18 88 0 L 97 03/15/24 14:15 144/72 H 03/15/24 14:15 144/72 H 03/15/24 14:15 144/72 H 03/15/24 14:15 144/72 H 03/15/24 14:15 83 0 L 98 03/15/24 14:10 146/74 H 03/15/24 14:10 36.6 C 84 16 146/74 H 97 03/15/24 14:05 162/73 H 03/15/24 14:05 162/73 H 03/15/24 13:39 0 L 03/15/24 13:30 0 L 03/15/24 13:15 0 L 03/15/24 13:03 0 L 03/15/24 12:45 0 L 03/15/24 12:30 0 L 03/15/24 12:15 0 L 03/15/24 12:03 88 11 L 94 03/15/24 12:00 121/82 03/15/24 11:57 89 4 L 95 03/15/24 11:45 88 6 L 90 03/15/24 11:18 81 4 L 96 03/15/24 11:10 36.4 C L 80 29 H 109/63 96 03/15/24 11:03 83 19 97 03/15/24 11:00 109/63 03/15/24 11:00 109/63 03/15/24 10:54 76 96 03/15/24 10:12 81 96 03/15/24 10:00 135/55 L 03/15/24 09:57 76 93 03/15/24 09:24 83 94 03/15/24 09:00 120/79 03/15/24 08:51 80 96 03/15/24 08:48 77 10 L 95 03/15/24 08:42 79 87 L 03/15/24 08:15 76 96 03/15/24 08:03 81 92 03/15/24 08:00 03/15/24 08:00 36.5 C 121/63 03/15/24 07:57 88 17 97 03/15/24 07:48 82 6 L 93 03/15/24 07:33 86 12 96 03/15/24 07:30 70 03/15/24 07:24 74 3 L 93 03/15/24 07:00 130/57 L 03/15/24 07:00 130/57 L 03/15/24 06:54 70 9 L 96 03/15/24 06:45 73 5 L 95 03/15/24 06:30 72 5 L 96 03/15/24 06:15 75 0 L 93 03/15/24 06:09 75 23 95 03/15/24 06:00 36.6 C 127/62 03/15/24 05:51 84 30 H 92 03/15/24 05:00 87 21 96 03/15/24 05:00 161/67 H 03/15/24 04:09 78 10 L 93 03/15/24 04:00 136/73 03/15/24 04:00 136/73 03/15/24 03:45 68 3 L 95 03/15/24 03:06 66 4 L 97 03/15/24 03:01 119/68 03/15/24 03:01 119/68 03/15/24 02:54 66 4 L 96 03/15/24 02:11 82 03/15/24 02:00 102/57 L 03/15/24 02:00 70 3 L 97 03/15/24 01:03 75 2 L 93 03/15/24 01:00 109/59 L 03/15/24 01:00 109/59 L 03/15/24 00:57 79 4 L 96 03/15/24 00:03 36.4 C L 82 14 95 03/15/24 00:00 126/72 03/15/24 00:00 126/72 03/14/24 23:57 75 8 L 95 03/14/24 23:09 69 0 L 96 03/14/24 23:00 102/62 03/14/24 23:00 102/62 03/14/24 22:57 75 0 L 96 03/14/24 22:12 68 4 L 96 03/14/24 22:00 110/65 03/14/24 22:00 110/65 03/14/24 21:54 68 5 L 96 03/14/24 21:49 113/69 03/14/24 21:48 83 12 96 03/14/24 21:45 73 5 L 95 03/14/24 21:36 73 4 L 95 03/14/24 21:21 76 6 L 96 03/14/24 21:12 75 10 L 113/69 96 03/14/24 21:03 79 3 L 94 03/14/24 20:54 83 8 L 96 03/14/24 20:30 79 5 L 95 03/14/24 20:30 116/74 03/14/24 20:15 122/68 03/14/24 20:00 03/14/24 20:00 81 4 L 95 03/14/24 19:45 84 6 L 94 03/14/24 19:45 105/73 03/14/24 19:45 105/73 03/14/24 19:33 85 9 L 96 03/14/24 19:25 128/73 03/14/24 19:00 134/76 03/14/24 17:42 69 91 03/14/24 17:36 77 22 91 03/14/24 17:31 148/78 H 03/14/24 17:18 61 93 03/14/24 17:15 131/69 03/14/24 17:00 143/72 H 03/14/24 16:51 56 L 92 03/14/24 16:45 65 19 92 03/14/24 16:45 157/72 H 03/14/24 16:35 03/14/24 16:30 148/113 H 03/14/24 16:30 61 14 93 03/14/24 16:30 66 03/14/24 16:25 147/77 H 03/14/24 16:24 63 14 96 03/14/24 16:15 152/76 H 03/14/24 16:12 60 97 03/14/24 16:06 59 L 17 95 03/14/24 16:01 161/79 H 03/14/24 15:57 60 14 96 03/14/24 15:45 150/110 H Pulse Ox O2 Del Method O2 Del Method O2 Flow Rate 03/15/24 15:00 Room Air 03/15/24 14:45 Oxymask 6 03/15/24 14:39 03/15/24 14:39 03/15/24 14:35 03/15/24 14:33 03/15/24 14:30 03/15/24 14:30 03/15/24 14:25 03/15/24 14:25 03/15/24 14:25 03/15/24 14:21 03/15/24 14:20 03/15/24 14:20 03/15/24 14:20 03/15/24 14:20 03/15/24 14:18 03/15/24 14:15 03/15/24 14:15 03/15/24 14:15 03/15/24 14:15 03/15/24 14:15 03/15/24 14:10 03/15/24 14:10 Oxymask 6 03/15/24 14:05 03/15/24 14:05 03/15/24 13:39 03/15/24 13:30 03/15/24 13:15 03/15/24 13:03 03/15/24 12:45 03/15/24 12:30 03/15/24 12:15 03/15/24 12:03 03/15/24 12:00 03/15/24 11:57 03/15/24 11:45 03/15/24 11:18 03/15/24 11:10 Nasal Cannula 6 03/15/24 11:03 03/15/24 11:00 03/15/24 11:00 03/15/24 10:54 03/15/24 10:12 03/15/24 10:00 03/15/24 09:57 03/15/24 09:24 03/15/24 09:00 03/15/24 08:51 03/15/24 08:48 03/15/24 08:42 03/15/24 08:15 03/15/24 08:03 03/15/24 08:00 Room Air 03/15/24 08:00 03/15/24 07:57 03/15/24 07:48 03/15/24 07:33 03/15/24 07:30 03/15/24 07:24 03/15/24 07:00 03/15/24 07:00 03/15/24 06:54 03/15/24 06:45 03/15/24 06:30 03/15/24 06:15 03/15/24 06:09 03/15/24 06:00 03/15/24 05:51 03/15/24 05:00 03/15/24 05:00 03/15/24 04:09 03/15/24 04:00 03/15/24 04:00 03/15/24 03:45 03/15/24 03:06 03/15/24 03:01 03/15/24 03:01 03/15/24 02:54 03/15/24 02:11 03/15/24 02:00 03/15/24 02:00 03/15/24 01:03 03/15/24 01:00 03/15/24 01:00 03/15/24 00:57 03/15/24 00:03 Nasal Cannula 4 03/15/24 00:00 03/15/24 00:00 03/14/24 23:57 03/14/24 23:09 03/14/24 23:00 03/14/24 23:00 03/14/24 22:57 03/14/24 22:12 03/14/24 22:00 03/14/24 22:00 03/14/24 21:54 03/14/24 21:49 03/14/24 21:48 03/14/24 21:45 03/14/24 21:36 03/14/24 21:21 03/14/24 21:12 03/14/24 21:03 03/14/24 20:54 03/14/24 20:30 03/14/24 20:30 03/14/24 20:15 03/14/24 20:00 Nasal Cannula 4 03/14/24 20:00 03/14/24 19:45 03/14/24 19:45 03/14/24 19:45 03/14/24 19:33 03/14/24 19:25 03/14/24 19:00 03/14/24 17:42 03/14/24 17:36 03/14/24 17:31 03/14/24 17:18 03/14/24 17:15 03/14/24 17:00 03/14/24 16:51 03/14/24 16:45 03/14/24 16:45 03/14/24 16:35 96 Nasal Cannula 03/14/24 16:30 03/14/24 16:30 03/14/24 16:30 03/14/24 16:25 03/14/24 16:24 03/14/24 16:15 03/14/24 16:12 03/14/24 16:06 03/14/24 16:01 03/14/24 15:57 Nasal Cannula 2 03/14/24 15:45 Pain Intensity Left Leg: Pain Intensity: 10 Transfer of Care Handoff Completed per policy Notes Mental Status: alert / awake / arousable Patient Amnestic to Procedure: Yes Nausea / Vomiting: adequately controlled Pain: adequately controlled Airway Patency, RR, SpO2: stable & adequate BP & HR: stable & adequate Hydration State: stable & adequate Anesthetic Complications: no major complications apparent
[2024-03-15] MEDS: ALBUMIN 25% 25 GM/100 ML VIAL IV ONE (19:42)
--- NOTE | 2024-03-15 19:53 | Communication Note ---
Date of Service: March 15, 2024 Patient with decreased urine output today as per RN. Vascular surgery and supervisor rod placing service deferring to hospitalist service for medical management as per CLASSROOM INSTRUCTIONAL AIDE. Patient denies chest pain, SOB. No unusual abdominal/flank pain. Just feeling weak all over. Serum creatinine 2.69 from 1.63 on admission (03/13) Serum potassium 5.5 AP ARF on CKD (baseline creatinine of 1.3-1.5 as per outpatient records) Recent LE angio procedure History BPH Monitor creatinine response to IV albumin (Patient with significant fluid retention from baseline likely from from NAFLD cirrhosis.) IV insulin and bicarb for hyperkalemia Hold home diuretic for now Renal ultrasound to rule out obstructive pathology Nephrology consult in a.m. for progressive kidney dysfunction if ultrasound negative for obstructive pathology (Patient well-known to [facility].) Plan discussed with patient and at bedside.
[2024-03-15] MEDS ORDERED: ACETAMINOPHEN 500 MG TAB PO PRN (20:41)
[2024-03-15 20:42] LABS: BUN Creatinine Ratio 36.1 (10-20); Calcium 7.7 mg/dl (8.6-10.3); Creatinine Clr Calc Pharmacy 29.8 ml/min; Potassium 5.5 mmol/L (3.5-5.1)
[2024-03-15] MEDS: PROMETHAZINE 6.25 MG/50.25 ML BAG IV PRN (21:00)
[2024-03-15] MEDS: SODIUM BICARB 8.4% INJ 50 MEQ/50 ML SYR IV STA (21:00)
[2024-03-15] MEDS: ceFAZolin 2000MG 2,000 MG/15 ML SYR IV SCH (21:00)
[2024-03-15] MEDS: DEXTROSE 50% 50 ML SYRINGE IV ONE (21:12)
[2024-03-15] MEDS: INSULIN HUMAN REGULAR PER UNIT 5 UNITS in SYRINGE 4.95 ML IV STA (21:12)
[2024-03-15 22:24] LABS: Amorphous Sediment Urine Present (None Prsent); Appearance Urine Cloudy (Clear); Bacteria Urine Automated None Seen (None Seen); Bilirubin Urine Negative (Negative); Blood Urine 2+ (Negative); Cast Urine Automated >20 /lpf (0-2); Color Urine Yellow; Epithelial Cell Urine Auto 0-2 /hpf (0-2); Glucose Urine UA Negative (Negative); Granular Casts Urine Present /lpf (None Prsent); Ketones Urine Negative (Negative); Leukocyte Esterase Urine 1+ (Negative); Nitrite Urine Negative (Negative); Protein Urine 4+ (Negative); Specific Gravity Urine 1.017 (1.000-1.030); Urobilinogen Urine Negative (Negative); WBC Urine Automated 21-50 /hpf (0-5); pH Urine 5.5 (4.5-7.5)
[2024-03-16] MEDS: ALBUMIN 25% 25 GM/100 ML VIAL IV SCH (00:15)
--- NOTE | 2024-03-16 00:43 | XRay Report ---
Exam(s): XR CXR 1 VIEW EXAM: XR Chest, 1 View CLINICAL HISTORY: Reason for exam: renal failure. TECHNIQUE: Frontal view of the chest. COMPARISON: 03/13/2024 FINDINGS: Lungs: Underexpanded lungs. Mildly prominent peripheral vascular markings. No consolidation. Pleural space: An elevated/eventrated right hemidiaphragm. No pneumothorax. Heart: Mildly enlarged cardiac silhouette. Mild tortuosity of the aortic arch. Bones/joints: Right shoulder replacement. No acute fracture. Left shoulder osteoarthrosis.. IMPRESSION: No acute cardiopulmonary abnormality noted. . Electronically signed by: Ramana Flynn MD, DABR 03/16/24 00:42 AM
--- NOTE | 2024-03-16 00:49 | Ultrasound Report ---
Exam(s): US RENAL EXAM: US Retroperitoneal Limited, Renal CLINICAL HISTORY: Reason for exam: worsening kidney dyfunction. TECHNIQUE: Real-time limited ultrasound of the retroperitoneum with image documentation. COMPARISON: CT abdomen and pelvis: 11/19/2023 FINDINGS: Right kidney: 12.0 x 4.5 x 5.0 cm in size. Multiple cortical cysts, largest is 2.3 x 2.3 x 2.1 cm. No stones. No solid mass. No hydronephrosis. Left kidney: 12.8 x 7.3 x 5.8 cm in size. Cortical cysts, largest is 1. 1 x 0.8 x 0.7 cm. No stones. No solid mass. No hydronephrosis. Other findings: Large amount of abdominal ascites is visualized. . IMPRESSION: Bilateral renal cortical cysts. Neither kidney shows calculi, hydronephrosis or discernible solid mass. . Electronically signed by: Ramana Flynn MD, MARIIR 03/16/24 00:49 AM
[2024-03-16 05:05] LABS: Calcium 7.7 mg/dl (8.6-10.3); Creatinine Clr Calc Pharmacy 25.9 ml/min; Magnesium 2.1 mg/dl (1.7-2.4); Potassium 4.7 mmol/L (3.5-5.1)
[2024-03-16 05:19] LABS: Hematocrit (blood only) 35.6 % (42.0-52.0); Hemoglobin 11.9 g/dl (14.0-18.0); Mean Corpuscular Hemoglobin 29.9 pg (25.0-34.0); Mean Corpuscular Hgb Conc 33.4 g/dL (32.0-36.0); Mean Corpuscular Volume 89.4 fL (80.0-100.0); Nucleated RBC # (auto) 0.06 K/uL (0.00-0.12); Nucleated RBC % (auto) 0.3 %; Platelet Count 259 K/uL (130-400); RDW Coefficient of Variation 19.5 % (11.5-14.5); RDW Standard Deviation 63.4 fL (36.4-46.3); Red Blood Count 3.98 M/uL (4.70-6.10); White Blood Count 18.41 K/ul (4.8-10.8)
--- NOTE | 2024-03-16 06:40 | Critical Care Progress Note ---
Date of Service March 16, 2024 Assessment & Plan (1) Occlusion of artery of lower extremity: (2) GARY (acute kidney injury): Plan Reason for critical care: LLE arterial occlusion Neuro: Oxycodone, Dilaudid for pain control CV: LLE acute limb ischemia - POD#1 s/p LLE AKA. Stable for downgrade. Resp: No acute concerns, currently stable on room air. GI: No acute concerns. Consider escalating bowel regimen if persistently requiring opioids for pain control. Renal: GARY with progressive worsening of renal function, decline in urine output - nephrology consulted, no need for urgent dialysis but will continue to monitor. Continue to monitor I/O, check AM BMP Avoid nephrotoxic meds. : As above Heme: Acute blood loss anemia, monitor for stability. Lines/Access: peripheral IV DVT ppx: chemical prophylaxis deferred in immediate post-op setting Dispo: stable for downgrade, critical care will sign off Admission and Anticipated Discharge Date Admission Date: March 13, 2024 Supervising Physician Co-Signing Physician Notes Dr. Still was resident physician during care of patient. I separately evaluated patient for [place] portions of the history and the exam. I was present during the critical portion of medical decision making, and I discussed the case with the resident. I generally agree with the findings and plan. Patient with worsening GARY. Nephrology consulted. Attempting to obtain advanced access with IV team. Critical care will sign off. Subjective Patient resting comfortably in bed, reports that pain is significantly less than pre-procedure. Denies fever/chills, chest pain, shortness of breath also improving today. Review of Systems Review of Systems: as per HPI Physical Exam Constitutional: WD/WN, vitals as above Respiratory: normal respiratory effort; no respiratory distress Neurologic: PERRL, EOMI, accommodation nl, no face palsy, no dysarthria Psychiatric: A+Ox3, euthymic affect Results & Data Results & Data Vital Signs (Past 12 Hours) Vital Signs Temp Pulse Resp BP Pulse Ox O2 Del Method O2 Flow Rate 03/16/24 06:00 72 10 L 96 03/16/24 05:06 75 14 97 03/16/24 05:00 136/64 03/16/24 04:57 72 20 97 03/16/24 04:30 147/62 H 03/16/24 04:30 147/62 H 03/16/24 04:24 75 16 98 03/16/24 04:00 75 14 95 03/16/24 03:30 133/65 03/16/24 03:30 133/65 03/16/24 03:30 133/65 03/16/24 03:30 73 20 95 03/16/24 03:03 74 20 94 03/16/24 03:00 140/66 03/16/24 03:00 140/66 03/16/24 03:00 140/66 03/16/24 02:57 75 17 96 03/16/24 02:30 80 17 98 03/16/24 02:30 146/70 H 03/16/24 02:30 146/70 H 03/16/24 02:30 146/70 H 03/16/24 02:30 146/70 H 03/16/24 02:03 73 17 96 03/16/24 02:00 138/68 03/16/24 02:00 138/68 03/16/24 01:51 66 14 96 03/16/24 01:30 141/60 H 03/16/24 01:30 141/60 H 03/16/24 01:27 78 16 97 03/16/24 01:00 122/60 03/16/24 01:00 122/60 03/16/24 00:48 71 16 97 03/16/24 00:00 144/65 H 03/16/24 00:00 36.5 C 144/65 H 03/16/24 00:00 144/65 H 03/16/24 00:00 68 03/16/24 00:00 36.5 C 70 12 144/65 H 97 Nasal Cannula 2 03/15/24 23:30 137/63 03/15/24 23:30 137/63 03/15/24 23:27 73 97 03/15/24 23:15 70 12 97 03/15/24 23:01 146/67 H 03/15/24 23:01 146/67 H 03/15/24 22:54 69 14 97 03/15/24 22:30 117/59 L 03/15/24 22:30 117/59 L 03/15/24 22:21 69 97 03/15/24 22:06 73 16 97 03/15/24 22:00 101/60 03/15/24 22:00 101/60 03/15/24 21:30 107 H 14 97 03/15/24 21:00 111/64 03/15/24 21:00 73 16 95 03/15/24 20:30 79 22 90 03/15/24 20:30 107/56 L 03/15/24 20:30 107/56 L 03/15/24 20:30 107/56 L 03/15/24 20:30 107/56 L 03/15/24 20:06 82 96 03/15/24 20:02 Nasal Cannula 2 03/15/24 19:30 75 93 03/15/24 19:30 130/58 L 03/15/24 19:30 130/58 L 03/15/24 19:30 130/58 L 03/15/24 19:30 130/58 L 03/15/24 19:06 75 96 Resident Activity Tracking Resident Involvement: Resident Care Provided Care Provided: Adult Hospital Medicine
--- NOTE | 2024-03-16 06:53 | Nephrology Consultation ---
Date of Consultation March 16, 2024 Assessment & Plan (1) GARY (acute kidney injury): rapidly worsening nonoliguric stage 2 GARY in the setting of prior to admission nephrotic range proteinuria (11 gm), monoclonal IgG kappa gammopathy, and already rapidly progressive/emerging CKD (baseline creatinine 1.0 until Dec 2023 when his creatinine moved to 1.4 w/ creat 1.5 on 03/05) in the setting of newly diagnosed gammopathy and of newly diagnosed liver disease. now also with acute illness including critical limb ischemia s/p obligate IV contrast for limb-preserving thrombectomy and then unfortunately limb. UA shows he already had ATN or nephritis (not UTI) on admission and on 03/05 prior to admission. differential here for GARY cause is broad > ATN, contrast induced nephropathy, hepatorenal syndrome; but really needs biopsy to evaluate likely impact of plasma cell neoplasm on kidney > including light chain cast nephropathy, interstitial nephritis, amyloidosis, plasma cell infiltration, or other. The same thrombophilic process that caused large artery clot could potentially affect the kidney, though no evidence to date of this. -continue strict I/O -continue daily BMP >>needs renal biopsy to evaluate for possible treatment -fairly likely to need urgent dialysis next 24-48 hours, though none needed today -agree w/ heart healthy, low K diet I sat with pt and his for 30 minutes and reviewed health events past several months and particularly past few weeks including the pathophysiology of nephrotic syndrome. Suggest transfer to tertiary care center for multispecialty care not available here > particularly renal biopsy and ko/urgent hematology evaluation for possible plasma cell neoplasm therapy and hypercoagulable w/u; care coordinated w/ Dr Hough regarding possible transfer and above concerns by telephone. I spent a total of 100 minutes coordinating, documenting, and providing care for this patient excluding time spent in the performance of separately billed services. This included personally reviewing all current laboratories and imaging studies, medication reconciliation, outpatient chart review, and discussion with other physicians, with nursing, and as applicable with the patient and family. (2) Ischemic leg: s/p L AKA; ? if in the setting of nephrotic range proteinuria and plasma cell neoplasm (both of which are pro-thrombotic conditions) or if this may relate to Buergers disease (aka thromboangiitis obliterans) << though this is usually in medium and small vessels and sounds like the dx is remote/details scarce; somewhat unusual to have arterial thrombosis in setting of nephrosis >>need discussion of whether hypercoagulable workup and/or anticoagulation is indicated; need ko evaluation by heme and possibly rheum -whatever the cause, makes tobacco cessation that much more important >> reviewed w/ pt and his (3) Cirrhosis: new diagnosis as of October 2023; undergoing w/u w/ hepatology; attributed to NAFLD and phenobarbital; do not believe plasma cell neoplasm has a role here but liver issues complicate his care >low Na diet (4) Plasma cell neoplasm: s/p bone marrow biopsy earlier this month and for PET scan later this month; fat pad biopsy also planned -continue OP f/u w/ hematology -may have a role in renal failure and ? in clotting -low threshold for renal biopsy History of Present Illness Reason for Consultation: GARY on CKD Requesting Physician: Dr Chavez Attending Physician: Munir Hough MD History of Present Illness 73 y/o M whom I'm asked to see for GARY on CKD was admitted on 03/13 for acute LLE ischemia s/p 03/14 mechanical thrombectomy w/ GARBAGE PERSON and stenting and then s/p 03/15 L above the knee amputation. PMH includes nephrotic range proteinuria (11 gm), emerging/progressive CKD (baseline creatinine 1.0 until Dec 2023 when his creatinine moved to 1.4 w/ creat 1.5 on 03/05), plasma cell neoplasm undergoing diagnostic work up (pt has not yet been apprised of test results from bone marrow bx 03/04 supporting this diagnosis) and monoclonal IgG kappa gammopathy, PVD, Buerger's disease diagnosed and w/o further details, HTN w/ orthostatic hypotension, prostatic hypertrophy with urinary retention and LUTS, bilateral renal cysts, long history of epilepsy, history of pulmonary embolism in the post operatively and not on OP AC, liver cirrhosis dx'd October 2023 attributed to NAFLD/phenobarbital, HL, and tobacco use disorder. also w/ chronic exertional though non hypoxic dyspnea since late 2022 Covid. Recently established in nephro clinic, where there was concern for 540 mL urinary retention but on urology evaluation this was attributed to ascites. PET scan to further delineate plasma cell neoplasm is scheduled 03/19; also has been referred to dermatology for fat pad biopsy to evaluate for amyloidosis. His creatinine on presentation here 03/13 was 1.6; the day after thrombectomy 03/15 creatinine increased to 2.23; it's up to 3.1 this am. Averaging 450-550 mL uop daily since admission, though so far today only 175 mL UOP. WBC are running 18-22 K since admission. no F since admission; SBP have been in 130- 140s and HR in 70-80s. Prior to admission pt c/o intermittent dysuria; outpatient UACM as below. his is at bedside and helps w/ hx. he has been sick for several months w/ anasarca and in 2 months gained 22 lb (from 206# > 228 on home scale). also w/ joint pain particularly in his small joints. stable chronic exertional dyspnea; lower extremities have only recently begun to swell. has hiccups and GI upset both attributed by him to anasarca/ ascites. no rash, no f/c; notes months of mm wasting. Allergies Allergy/AdvReac Type Severity Reaction Status Date / Time dorzolamide Allergy Severe eyes Verified 01/18/24 11:40 swollen azithromycin Allergy Intermediate Rash Verified 01/18/24 11:40 Home Medications Medication Instructions Recorded Confirmed Type furosemide 20 mg tablet 40 mg PO BID 01/18/24 03/13/24 History midodrine 10 mg tablet 10 mg PO TID #60 tabs 02/04/24 03/13/24 Rx finasteride 5 mg tablet 5 mg PO DAILY 03/13/24 03/13/24 History latanoprost 0.005 % eye drops 1 drp OPB DAILY 03/13/24 03/13/24 History Patient History Medical History Monoclonal gammopathy work up underway March 2024 Acute on chronic renal insufficiency Hypoalbuminemia Cirrhosis Orthostatic hypotension Syncope Sensorineural hearing loss (SNHL) of left ear with restricted hearing of right ear Seizure Grand mal (most recent 1978) Migraine History of palpitations BPH (benign prostatic hyperplasia) Bulging disc Osteoarthritis Glaucoma Restless leg syndrome Pulmonary embolism 1985 post-op (back surgery) Surgical History History of reverse total replacement of right shoulder joint right History of sinus surgery Endoscopic sinus surgery (08/09/18): LMA#5, atraumatic at [facility]. No issues noted per post-op anesthesia progress note. H/O eye surgery Detached retina repairs-bilateral H/O sinus surgery History of repair of rotator cuff R/L History of carpal tunnel release R/L History of discectomy Lumbar History of colonoscopy Dr. Richards with polypectomy History of tooth extraction History of cataract surgery R/L Family History Father Family hx of colon cancer Cancer Colorectal cancer Heart disease Grandfather (Maternal) Family hx of colon cancer Grandfather Colorectal cancer Social History Smoking Status: Current every day smoker Tobacco Type: Cigarettes Cigarettes Per Day: 3; Second Hand Exposure: No; Do You Dip or Chew Tobacco: No; Hx Alcohol Use: No Hx Substance Use: No Preferred Language: B[place] Communication Ability: Effective Welder Fitter Arc Required: No Beliefs That Will Affect Care: None marital status: Current Living Situation: Spouse Feels Safe at Home: Yes Diet: regular Assistive Devices: None Review of Systems 2 Review of Systems: All systems reviewed & are unremarkable except as noted in HPI & below Physical Exam 2 Constitutional: well developed (sitting in bed on RA > 2 person assist to role/move in bed), + frail appearing and cooperative; no acute distress Eyes: EOM intact bilaterally ENMT: Mouth: + dry oral mucous membranes Respiratory: normal respiratory effort Auscultation: + diminished lung sounds and + crackles (bibasilar) Cardiovascular: Rate/Rhythm: regular rate and regular rhythm Extremities: + edema (3+ R foot to hips) Gastrointestinal (Abdomen): Inspection/Auscultation: + abdomen distended, normal bowel sounds and + abdominal edema (anasarca) Percussion/Palpation: a bdomen soft and + ascites; abdomen nontender and no guarding Musculoskeletal: Extremities: strength 5/5 throughout Skin: no rashes, warm and dry Neurologic: mendez, fluent speech, no tremor Psychiatric: Orientation: alert and oriented x 3 Results & Data Vital Signs (Past 12 Hours) Vital Signs Temp Pulse Resp BP Pulse Ox O2 Del Method O2 Flow Rate 03/16/24 06:00 72 10 L 96 03/16/24 05:06 75 14 97 03/16/24 05:00 136/64 03/16/24 04:57 72 20 97 03/16/24 04:30 147/62 H 03/16/24 04:30 147/62 H 03/16/24 04:24 75 16 98 03/16/24 04:00 75 14 95 03/16/24 03:30 133/65 03/16/24 03:30 133/65 03/16/24 03:30 133/65 03/16/24 03:30 73 20 95 03/16/24 03:03 74 20 94 03/16/24 03:00 140/66 03/16/24 03:00 140/66 03/16/24 03:00 140/66 03/16/24 02:57 75 17 96 03/16/24 02:30 80 17 98 03/16/24 02:30 146/70 H 03/16/24 02:30 146/70 H 03/16/24 02:30 146/70 H 03/16/24 02:30 146/70 H 03/16/24 02:03 73 17 96 03/16/24 02:00 138/68 03/16/24 02:00 138/68 03/16/24 01:51 66 14 96 03/16/24 01:30 141/60 H 03/16/24 01:30 141/60 H 03/16/24 01:27 78 16 97 03/16/24 01:00 122/60 03/16/24 01:00 122/60 03/16/24 00:48 71 16 97 03/16/24 00:00 144/65 H 03/16/24 00:00 36.5 C 144/65 H 03/16/24 00:00 144/65 H 03/16/24 00:00 68 03/16/24 00:00 36.5 C 70 12 144/65 H 97 Nasal Cannula 2 03/15/24 23:30 137/63 03/15/24 23:30 137/63 03/15/24 23:27 73 97 03/15/24 23:15 70 12 97 03/15/24 23:01 146/67 H 03/15/24 23:01 146/67 H 03/15/24 22:54 69 14 97 03/15/24 22:30 117/59 L 03/15/24 22:30 117/59 L 03/15/24 22:21 69 97 03/15/24 22:06 73 16 97 03/15/24 22:00 101/60 03/15/24 22:00 101/60 03/15/24 21:30 107 H 14 97 03/15/24 21:00 111/64 03/15/24 21:00 73 16 95 03/15/24 20:30 79 22 90 03/15/24 20:30 107/56 L 03/15/24 20:30 107/56 L 03/15/24 20:30 107/56 L 03/15/24 20:30 107/56 L 03/15/24 20:06 82 96 03/15/24 20:02 Nasal Cannula 2 03/15/24 19:30 75 93 03/15/24 19:30 130/58 L 03/15/24 19:30 130/58 L 03/15/24 19:30 130/58 L 03/15/24 19:30 130/58 L 03/15/24 19:06 75 96 Laboratory Results 03/16/24 04:27 03/16/24 04:27 OP UA 03/05 26-50 bacteria, granular casts, no LE, no nitrites; + blood and protein OP BM Bx reviewed 03/05 03/15 UA 2+ blood, 4+ protein, granular casts, 21-50 WBC, 1+ LE, no nitrites Diagnostic Findings Renal u/s 03/15 Other findings: Large amount of abdominal ascites is visualized. . IMPRESSION: Bilateral renal cortical cysts. Neither kidney shows calculi, hydronephrosis or discernible solid mass. cxr no acute cp process (3) Cirrhosis Ascites presence: with ascites Hepatic cirrhosis type: unspecified hepatic cirrhosis Qualified Code(s): K74.60 - Unspecified cirrhosis of liver; R18.8 - Other ascites
[2024-03-16] MEDS: oxyCODONE HCL IR 5 MG TAB (IMMEDIATE RELEASE) PO PRN (09:03)
--- NOTE | 2024-03-16 09:47 | Surgery Progress Note ---
Date of Service March 16, 2024 Assessment & Plan (1) GARY (acute kidney injury): Plan: Creatinine up to 3. He is making urine at this point. Hopefully will improve renal function now that he is rehydrated and his ischemic lower extremity is now amputated. (2) Amputation above knee: Plan: Dressing dry and intact. Will start PT\OT. Will need rehab (3) Acute blood loss anemia: Plan: Drop in hgb a result of hydration and blood loss from a left AKA. Will follow blood counts Admission and Anticipated Discharge Date Admission Date: March 13, 2024 Subjective Patient much more alert today. Does have incisional pain but much less than pre amputation Physical Exam Constitutional: WD/WN, vitals as above Respiratory: normal respiratory effort; no respiratory distress Cardiovascular: Rate/Rhythm: regular rate and regular rhythm Extremities: + edema Gastrointestinal (Abdomen): Inspection/Auscultation: abdomen normal to inspection Percussion/Palpation: abdomen soft Skin: + incision (dressing intact) Neurologic: CN's II-XI intact bilaterally and moves all extremities Psychiatric: A+Ox3, euthymic affect Results & Data Vital Signs (Past 12 Hours) Vital Signs Temp Pulse Resp BP Pulse Ox O2 Del Method O2 Flow Rate 03/16/24 08:30 69 9 L 97 03/16/24 08:03 71 14 99 03/16/24 08:00 151/69 H 03/16/24 07:54 69 9 L 98 03/16/24 07:30 70 5 L 93 03/16/24 07:24 80 18 99 03/16/24 07:03 151/66 H 03/16/24 06:51 43 H 98 03/16/24 06:30 70 7 L 97 03/16/24 06:00 72 10 L 96 03/16/24 05:06 75 14 97 03/16/24 05:00 136/64 03/16/24 04:57 72 20 97 03/16/24 04:30 147/62 H 03/16/24 04:30 147/62 H 03/16/24 04:24 75 16 98 03/16/24 04:00 75 14 95 03/16/24 03:30 133/65 03/16/24 03:30 133/65 03/16/24 03:30 133/65 03/16/24 03:30 73 20 95 03/16/24 03:03 74 20 94 03/16/24 03:00 140/66 03/16/24 03:00 140/66 03/16/24 03:00 140/66 03/16/24 02:57 75 17 96 03/16/24 02:30 80 17 98 03/16/24 02:30 146/70 H 03/16/24 02:30 146/70 H 03/16/24 02:30 146/70 H 03/16/24 02:30 146/70 H 03/16/24 02:03 73 17 96 03/16/24 02:00 138/68 03/16/24 02:00 138/68 03/16/24 01:51 66 14 96 03/16/24 01:30 141/60 H 03/16/24 01:30 141/60 H 03/16/24 01:27 78 16 97 03/16/24 01:00 122/60 03/16/24 01:00 122/60 03/16/24 00:48 71 16 97 03/16/24 00:00 144/65 H 03/16/24 00:00 36.5 C 144/65 H 03/16/24 00:00 144/65 H 03/16/24 00:00 68 03/16/24 00:00 36.5 C 70 12 144/65 H 97 Nasal Cannula 2 03/15/24 23:30 137/63 03/15/24 23:30 137/63 03/15/24 23:27 73 97 03/15/24 23:15 70 12 97 03/15/24 23:01 146/67 H 03/15/24 23:01 146/67 H 03/15/24 22:54 69 14 97 03/15/24 22:30 117/59 L 03/15/24 22:30 117/59 L 03/15/24 22:21 69 97 03/15/24 22:06 73 16 97 03/15/24 22:00 101/60 03/15/24 22:00 101/60
[2024-03-16] MEDS ORDERED: ALBUMIN 25% 25 GM/100 ML VIAL IV SCH (12:00)
--- NOTE | 2024-03-16 13:37 | Hospitalist Progress Note ---
Date of Service March 16, 2024 Assessment & Plan (1) Occlusion of artery of lower extremity: Plan Patient is a 73 yr male with H/O significant for dyslipidemia, peripheral vascular disease, Buerger's disease, HTN, BPH with obstruction/lower urinary tract symptoms, urinary retention, bilateral renal cyst, epilepsy, history of pulmonary embolism, monoclonal IgG kappa gammopathy, orthostatic hypotension, cirrhosis with ascites, CKD stage III and tobacco use disorder who presented to the ED on 03/13/2024 for evaluation of left lower leg pain and was found to have an occlusion of the distal left calf vessels on arterial ultrasound imaging. LLE Arterial Occlusion, Buerger's Disease: LLE Arterial Doppler US --> Extensive atherosclerotic plaque within the LLE, findings consistent with a stenosis (likely severe) within the mid L superficial femoral artery, markedly diminished flow within the L calf vessels and minimal flow within the proximal L calf vessels without definite distal flow suggesting occlusion of the distal L calf vessels. S/P mechanical thrombectomy, tPA, IV Heparin>> no improvement needing amputation S/P left above-knee amputation by Dr. Smith on 03/15/2024 Acute blood loss anemia Pain control Continue local wound care Follow-up pathology results Appreciate vascular surgery, side sawyer help Consider to add aspirin, statin as able Needs follow-up with vascular surgery on discharge PT OT as able Acute kidney injury on CKD III Ongoing proteinuria Volume overload Baseline creatinine ~1 to 1.5 H/O bilateral renal cysts, undergoing diagnostic workup for plasma cell neoplasm, monoclonal IgG [place] gammopathy. Plan for PET scan as outpatient H/O urinary retention, BPH --Renal USD:Bilateral renal cortical cysts. Neither kidney shows calculi, hydronephrosis or discernible solid mass. Avoid nephrotoxic agents as able Follows with [facility] nephrology as outpatient Received IV fluids Currently on IV albumin Will likely need diuretics to help with volume overload Appreciate nephrology input Urine culture pending Continue Sousa catheter for now Monitor urine output, volume status closely Leukocytosis, Recent Untreated UTI: CXR reviewed and without any evidence of consolidation Recent outpatient UA done on 03/06/2024 that was infected, which he never received ABX for. Empiric Rocephin discontinued today 2/2 negative urine cx Repeat urine culture pending Monitor Cirrhosis: reports he was recently diagnosed with cirrhosis back in October of this year. He recently saw Dr. Edmonds with [facility] Hepatology in January. It was thought that his presumed etiology of cirrhosis was drug-induced +/- undiagnosed prior history of fatty liver disease. Follow-up as outpatient Hyperlipidemia: Lipid panel this admission -> Total cholesterol 380, LDL 322, HDL 37. Patient was previously on statin therapy however this was stopped for unknown reasons. He would benefit from resumption of statin therapy and possibly even daily ASA Seizure Disorder: Patient was previously on phenobarbital, however he stopped taking this medication approximately 2 months ago. He has not had a seizure since 1975. Seizure precautions Tobacco Use Disorder: Patient smokes approximately 3 to 4 cigarettes/day. Encourage smoking cessation. Denies need for nicotine patch History of Proteinuria: He is currently being worked up by [facility] Hematology/Oncology - Dr. Brian Dyson. There was concern of the possibly that the patient may have multiple myeloma as there was evidence of Bence-Cosme proteins in a recent urine sample as an outpatient. He had a bone marrow biopsy done on 03/05/2024 and patient was not made aware of the results. He has a PET scan scheduled on 03/19/2024. According to outpatient records on [facility], it was also suspected that the patient may have amyloidosis due to postural hypotension, nephrotic range proteinuria and hepatomegaly. DVT Px IV heparin discontinued Consider starting SQ heparin if ok with surgery Code Status: FULL CODE Disposition: To be determined Will need rehab placement Admission and Anticipated Discharge Date Admission Date: March 13, 2024 Subjective Patient is seen and examined at bedside Denies any significant left lower extremity pain Also denies any chest pain, dyspnea, nausea, vomiting, abdominal pain Discussed with patient's family at bedside Plan to transfer to PCU Review of Systems Review of Systems: All systems reviewed & are unremarkable except as noted in Subjective Physical Exam Physical Exam: Physical Exam: Vitals signs as noted above General Appearance:Moderately built and nourished, no apparent distress Head: normocephalic, Atraumatic Eyes: normal inspection, EOMI Neck: supple, Trachea midline Respiratory/Chest: Normal breath sounds, CTA, No accessory muscle use Cardiovascular: S1, S2, No murmur Abdomen/GI:Soft, Non tender, Bowel sounds present Extremities/Musculoskeletal:normal inspection, left AKA in dressing, edema Neurologic/Psych:AAOX3, grossly no focal neurological deficits Skin: normal color, warm Results & Data Results & Data Vital Signs (Past 12 Hours) Vital Signs Pulse Resp BP Pulse Ox 11/16/24 11:00 76 14 03/16/24 11:00 138/66 03/16/24 11:00 138/66 03/16/24 10:06 72 23 98 03/16/24 09:00 141/75 H 03/16/24 09:00 18 99 03/16/24 08:30 69 9 L 97 03/16/24 08:03 71 14 99 03/16/24 08:00 151/69 H 03/16/24 07:54 69 9 L 98 03/16/24 07:30 70 5 L 93 03/16/24 07:24 80 18 99 03/16/24 07:03 151/66 H 03/16/24 06:51 43 H 98 03/16/24 06:30 70 7 L 97 03/16/24 06:00 72 10 L 96 03/16/24 05:06 75 14 97 03/16/24 05:00 136/64 03/16/24 04:57 72 20 97 03/16/24 04:30 147/62 H 03/16/24 04:30 147/62 H 03/16/24 04:24 75 16 98 03/16/24 04:00 75 14 95 03/16/24 03:30 133/65 03/16/24 03:30 133/65 03/16/24 03:30 133/65 03/16/24 03:30 73 20 95 03/16/24 03:03 74 20 94 03/16/24 03:00 140/66 03/16/24 03:00 140/66 03/16/24 03:00 140/66 03/16/24 02:57 75 17 96 03/16/24 02:30 80 17 98 03/16/24 02:30 146/70 H 03/16/24 02:30 146/70 H 03/16/24 02:30 146/70 H 03/16/24 02:30 146/70 H 03/16/24 02:03 73 17 96 03/16/24 02:00 138/68 03/16/24 02:00 138/68 03/16/24 01:51 66 14 96 03/16/24 01:30 141/60 H 03/16/24 01:30 141/60 H 11/16/24 01:27 78 16 97 Laboratory Results Short CBC 03/16/24 Range/Units 04:27 WBC 18.41 H (4.8-10.8) K/ul Hgb 11.9 L D (14.0-18.0) g/dl Hct 35.6 L (42.0-52.0) % Plt Count 259 (130-400) K/uL BMP 03/15/24 03/15/24 03/16/24 19:57 22:58 04:27 Sodium 138 138 Potassium 5.5 H 4.8 4.7 Chloride 108 H 107 Carbon Dioxide 21 23 BUN 97 H 102 H Creatinine 2.69 H D 3.09 H D Glucose 91 78 Calcium 7.7 L 7.7 L Urine 03/15/24 Range/Units 21:40 Urine Color Yellow Urine Appearance Cloudy A (Clear) Urine pH 5.5 (4.5-7.5) Ur Specific [place] 1.017 (1.000-1.030) Urine Protein 4+ H (Negative) Urine Glucose (UA) Negative (Negative)
[2024-03-16] MEDS: BACLOFEN 10 MG TAB PO PRN (16:50)
--- NOTE | 2024-03-16 18:15 | Communication Note ---
Date of Service: March 16, 2024 On further discussion with Job Compositor emissions testing and repair technician, given worsening renal function and no clear diagnosis of worsening kidney function and need for Kidney biopsy, patient is recommended to be transferred to a tertiary care facility for further management. IR services limited at [facility]. Discussed with patient's family in detail who agrees to be transferred if accepted. discussed with emissions testing and repair technician Job Compositor at [facility] who agrees that patient would benefit from being transferred for further management.
[2024-03-17 05:54] LABS: Hemoglobin 10.6 g/dl (14.0-18.0); Mean Corpuscular Hemoglobin 30.2 pg (25.0-34.0); Mean Corpuscular Hgb Conc 34.2 g/dL (32.0-36.0); Mean Corpuscular Volume 88.3 fL (80.0-100.0); Mean Platelet Volume 10.2 fL (9.4-12.4); Nucleated RBC # (auto) 0.02 K/uL (0.00-0.12); Nucleated RBC % (auto) 0.2 %; Platelet Count 220 K/uL (130-400); Red Blood Count 3.51 M/uL (4.70-6.10); White Blood Count 11.94 K/ul (4.8-10.8)
[2024-03-17 06:10] LABS: BUN Creatinine Ratio 29.2 (10-20); Calcium 7.6 mg/dl (8.6-10.3); Potassium 4.6 mmol/L (3.5-5.1)
[2024-03-17 09:17] VITALS: RESP 18
--- NOTE | 2024-03-17 11:19 | Nephrology Progress Note ---
Date of Service March 17, 2024 Assessment & Plan (1) GARY (acute kidney injury): Plan: further and not unexpected worsening now borderline oliguric now stage 3 GARY in the setting of prior to admission nephrotic range proteinuria (11 gm), monoclonal IgG kappa gammopathy, and already rapidly progressive/emerging CKD (baseline creatinine 1.0 until Dec 2023 when his creatinine moved to 1.4 w/ creat 1.5 on 03/05) in the setting of newly diagnosed monoclonal gammopathy and of newly diagnosed liver disease. now also with acute illness including critical limb ischemia s/p obligate IV contrast for limb-preserving thrombectomy and then unfortunately limb. UA shows he already had ATN or nephritis (not UTI) on admission and on 03/05 prior to admission. differential here for GARY cause is broad > ATN, contrast induced nephropathy, hepatorenal syndrome; but really needs biopsy to evaluate likely/potential impact of plasma cell neoplasm on kidney > including light chain cast nephropathy, interstitial nephritis, amyloidosis, plasma cell infiltration, or other. The same thrombophilic process that caused large artery clot could potentially affect the kidney, as could his thromboangiitis obliterans, though no evidence to date of this. BUN up to 121 today and creat to 4.2, both rapdily climbing; UOP 475 today >ICU will get CXR after line to check placement; and will also reassess volume -continue strict I/O -continue daily BMP -stopped IV albumin > only worsening volume status at this point and now 2 days out from IV contrast >>needs renal biopsy to evaluate for possible treatment targets -agree w/ heart healthy, low K diet >>>w/ climbing/worsening uremia he needs to start dialysis. -coordinated w/ Dr Marino for dialysis catheter -coordinated w/ envelope stamping machine operator -reviewed indications, risks of, benefits for dialysis for about 15 minutes; consent obtained I sat with pt and his for another 10 minutes and again reviewed health events past several months and particularly past few weeks and how nephrotic syndrome and IV contrast and plasma cell neoplasm affect kidney function. Awaiting transfer to tertiary care center for multispecialty care not available here > particularly renal biopsy and ko/urgent hematology evaluation for possible plasma cell neoplasm therapy and hypercoagulable w/u. Care coordinated w/ Vinnie Hough and Ned in person and via TText repeatedly regarding dialysis indications/timing/plan > we are in agreement. I spent a total of 60 minutes coordinating, documenting, and providing care for this patient excluding time spent in the performance of separately billed services. This included personally reviewing all current laboratories and imaging studies, medication reconciliation, outpatient chart review, and discussion with other physicians, with nursing, and as applicable with the patient and family. (2) Ischemic leg: Plan: s/p emergent L AKA; ? if in the setting of nephrotic range proteinuria and plasma cell neoplasm (both of which are pro-thrombotic conditions) or if this may relate to Buergers disease (aka thromboangiitis obliterans) << though this is usually in medium and small vessels and sounds like the dx is remote/details scarce; somewhat unusual to have arterial thrombosis in setting of nephrosis >>need discussion of whether hypercoagulable workup and/or anticoagulation is indicated; needs ko evaluation by heme and possibly rheum -whatever the cause, makes tobacco cessation that much more important >> reviewed w/ pt and his (3) Cirrhosis: Plan: new diagnosis as of October 2023; undergoing w/u w/ hepatology; attributed to NAFLD and phenobarbital; do not believe plasma cell neoplasm has a role here but liver issues complicate his care >low Na diet (4) Plasma cell neoplasm: Plan: s/p bone marrow biopsy earlier this month and for PET scan later this month; fat pad biopsy also planned -continue OP f/u w/ hematology -may have a role in renal failure and ? in clotting -semi urgent renal bx is best path forward to tandem work up both renal failure and plasma cell neoplasm/monoclonal gammopathy >> transfer to [facility] when bed available Admission and Anticipated Discharge Date Admission Date: March 13, 2024 Subjective uneventful evening; no worsening sob; does c/o more tremors today; ongoing minimal/poor appetite; no uncontrolled pain; ongoing hiccups and reflux like sx; waiting on a bed at [facility] where he's been accepted Review of Systems 2 Review of Systems: All systems reviewed & are unremarkable except as noted in Subjective Physical Exam 2 Constitutional: well developed (sitting in bed on RA > still 2 person assist to sit forward in bed), + thin (but w/ volume overload), + frail appearing and cooperative; no acute distress Eyes: EOM intact bilaterally ENMT: Mouth: + dry oral mucous membranes Respiratory: normal respiratory effort Auscultation: + diminished lung sounds and + crackles (bibasilar) Cardiovascular: Rate/Rhythm: regular rate and regular rhythm Extremities: + edema (3+ R foot to hips) Gastrointestinal (Abdomen): Inspection/Auscultation: + abdomen distended, normal bowel sounds and + abdominal edema (anasarca) Percussion/Palpation: a bdomen soft and + ascites; abdomen nontender and no guarding Musculoskeletal: Extremities: strength 5/5 throughout (L AKA) Skin: no rashes, warm and dry (skin tear/groin irritation in R) Neurologic: mendez, fluent speech, mild new tremor Psychiatric: Orientation: alert and oriented x 3 Results & Data Vital Signs (Past 12 Hours) Vital Signs Temp Pulse Resp BP Pulse Ox O2 Del Method 03/17/24 09:16 36.5 C 72 18 163/65 H 93 Room Air 03/17/24 04:01 36.5 C 69 20 150/68 H 93 Room Air 03/16/24 23:30 36.6 C 79 16 147/66 H 96 Room Air Laboratory Results 03/17/24 05:10 03/17/24 05:10 (3) Cirrhosis Ascites presence: with ascites Hepatic cirrhosis type: unspecified hepatic cirrhosis Qualified Code(s): K74.60 - Unspecified cirrhosis of liver; R18.8 - Other ascites
--- NOTE | 2024-03-17 11:57 | Hospitalist Progress Note ---
Date of Service March 17, 2024 Assessment & Plan (1) Occlusion of artery of lower extremity: Plan Patient is a 73 yr male with H/O significant for dyslipidemia, peripheral vascular disease, Buerger's disease, HTN, BPH with obstruction/lower urinary tract symptoms, urinary retention, bilateral renal cyst, epilepsy, history of pulmonary embolism, monoclonal IgG kappa gammopathy, orthostatic hypotension, cirrhosis with ascites, CKD stage III and tobacco use disorder who presented to the ED on 03/13/2024 for evaluation of left lower leg pain and was found to have an occlusion of the distal left calf vessels on arterial ultrasound imaging. LLE Arterial Occlusion, Buerger's Disease: LLE Arterial Doppler US --> Extensive atherosclerotic plaque within the LLE, findings consistent with a stenosis (likely severe) within the mid L superficial femoral artery, markedly diminished flow within the L calf vessels and minimal flow within the proximal L calf vessels without definite distal flow suggesting occlusion of the distal L calf vessels. S/P mechanical thrombectomy, tPA, IV Heparin>> no improvement needing amputation S/P left above-knee amputation by Dr. Smith on 03/15/2024 Acute blood loss anemia Pain control Continue local wound care Follow-up pathology results--pending Appreciate vascular surgery, lab tester help Consider to add aspirin, statin as able Needs follow-up with vascular surgery on discharge Hemoglobin 10.6 today, drop partly dilutional secondary to volume overload Monitor CBC closely Leukocytosis trending down Acute kidney injury on CKD III Nephrotic range proteinuria Volume overload Baseline creatinine ~1 to 1.5 DD: Hepatorenal syndrome, plasma cell neoplasm of kidney, light chain cast nephropathy, plasma cell infiltration etc. H/O bilateral renal cysts, undergoing diagnostic workup for plasma cell neoplasm, monoclonal IgG [place] gammopathy. Plan for PET scan as outpatient H/O urinary retention, BPH --Renal USD:Bilateral renal cortical cysts. Neither kidney shows calculi, hydronephrosis or discernible solid mass. Avoid nephrotoxic agents as able Cr:4.15 tofday Follows with [facility] nephrology as outpatient Received IV fluids IV albumin discontinued Urine culture negative to date Continue Sousa catheter Monitor urine output, volume status closely Given worsening uremia, nephrology plans to initiate dialysis today Appreciate nephrology help Patient will need biopsy of the kidney to understand clear etiology. Patient is accepted at [facility], awaiting bed availability. Leukocytosis, Recent Untreated UTI: CXR reviewed and without any evidence of consolidation Recent outpatient UA done on 03/06/2024 that was infected, which he never received ABX for. Empiric Rocephin discontinued today 2/2 negative urine cx Repeat urine culture negative to date Monitor Cirrhosis: reports he was recently diagnosed with cirrhosis back in October of this year. He recently saw Dr. Edmonds with [facility] Hepatology in January. It was thought that his presumed etiology of cirrhosis was drug-induced +/- undiagnosed prior history of fatty liver disease. Follow-up as outpatient Hyperlipidemia: Lipid panel this admission -> Total cholesterol 380, LDL 322, HDL 37. Patient was previously on statin therapy however this was stopped for unknown reasons. He would benefit from resumption of statin therapy and possibly even daily ASA Seizure Disorder: Patient was previously on phenobarbital, however he stopped taking this medication approximately 2 months ago. He has not had a seizure since 1975. Seizure precautions Tobacco Use Disorder: Patient smokes approximately 3 to 4 cigarettes/day. Encourage smoking cessation. Denies need for nicotine patch History of Proteinuria: Monoclonal IgG kappa gammopathy He is currently being worked up by [facility] Hematology/Oncology - Dr. Brian Dyson. There was concern of the possibly that the patient may have multiple myeloma as there was evidence of Bence-Cosme proteins in a recent urine sample as an outpatient. He had a bone marrow biopsy done on 03/05/2024 and patient was not made aware of the results. He has a PET scan scheduled on 03/19/2024. According to outpatient records on [facility], it was also suspected that the patient may have amyloidosis due to postural hypotension, nephrotic range proteinuria and hepatomegaly. DVT Px IV heparin discontinued Consider starting SQ heparin if ok with surgery Code Status: FULL CODE Disposition: [facility] once bed available Admission and Anticipated Discharge Date Admission Date: March 13, 2024 Subjective Patient is seen and examined at bedside Reports constipation Left lower extremity stump pain is controlled Planned for dialysis today per Nephrology poor oral intake Discussed with patient's family at bedside Denies any chest pain, dyspnea, nausea, vomiting, abdominal pain Plan to transfer to [facility] once bed is available Review of Systems Review of Systems: All systems reviewed & are unremarkable except as noted in Subjective Physical Exam Physical Exam: Physical Exam: Vitals signs as noted above General Appearance:Moderately built and nourished, no apparent distress Head: normocephalic, Atraumatic Eyes: normal inspection, EOMI Neck: supple, Trachea midline Respiratory/Chest: Normal breath sounds, CTA, No accessory muscle use Cardiovascular: S1, S2, No murmur Abdomen/GI:Soft, Non tender, Bowel sounds present Extremities/Musculoskeletal:normal inspection, left AKA in dressing, significant edema Neurologic/Psych:AAOX3, grossly no focal neurological deficits Skin: normal color, warm Results & Data Results & Data Vital Signs (Past 12 Hours) Vital Signs Temp Pulse Resp BP Pulse Ox O2 Del Method 03/17/24 09:16 36.5 C 72 18 163/65 H 93 Room Air 03/17/24 04:01 36.5 C 69 20 150/68 H 93 Room Air Laboratory Results Short CBC 03/17/24 Range/Units 05:10 WBC 11.94 H (4.8-10.8) K/ul Hgb 10.6 L (14.0-18.0) g/dl Hct 31.0 L (42.0-52.0) % Plt Count 220 (130-400) K/uL BMP 03/17/24 05:10 Sodium 139 Potassium 4.6 Chloride 108 H Carbon Dioxide 21 BUN 121 H Creatinine 4.15 H D Glucose 85 Calcium 7.6 L
--- NOTE | 2024-03-17 12:46 | Procedure Note ---
Procedure Note Date of Service March 17, 2024 Procedure date: Noted above Procedure: Temporary hemodialysis catheter Pre-procedure indication: Need for hemodialysis Post-procedure Diagnosis: same as above Prior to Procedure: Informed Consent: The risks, benefits, indications, potential complications, and alternatives were explained to the patient and informed consent obtained. Attending Staff: Noemi Marino DO Resident/APC: Not applicable Skin Prep: Chlorhexidine Anesthesia: 4 mL 1% lidocaine without epinephrine The identity of the patient was confirmed and a bedside time out was performed. Description of Procedure: After sterile prep and sterile drape utilizing standard sterile technique the superficial skin of the right internal jugular area was anesthetized. The target vessel was identified and entered with an 18- gauge needle. Dark venous blood return was noted. A guidewire was inserted through the needle and into the vessel. The needle was withdrawn and a skin sung was made. A tissue dilator was advanced via Seldinger technique and removed. A double lumen catheter was inserted via Seldinger technique and the guidewire removed. All ports renata and flushed easily. A Biopatch was placed, and the catheter was secured via nylon. A sterile dressing was then applied. Complications: None Estimated blood loss: Trace Patient tolerated the procedure well. Procedure Date: Noted Above Procedure: Procedural Ultrasound Indication: Central venous access Attending: Noemi Marino DO Resident/Physician Traffic Operator: Not applicable Artery visualized: Yes Vein visualized: Yes Compressible Vein: Yes Vein patent: Yes Guidewire or Short Catheter seen in vein prior to dilation: Yes Line confirmed in Vein with ultrasound: Yes Lung Sliding on side of attempt (if applicable): NA If no lung sliding or not obtained has CXR been ordered: Yes Impression: Successful central venous access placement Images obtained are saved for permanent record [facility] Procedure Codes (Charges) Tubes, Drains, and Vasc Access Procedure 1: Tubes, Drains, and Vasc Access: [id number] Insertion Of Non-tunneled Catheter Age 4 Yrs> Procedure 2: Tubes, Drains, and Vasc Access: [id number] Ultrasound Guidance For Vascular Coding CPT Codes Tubes, Drains, and Vasc Access - Tubes, Drains, and Vasc Access: [id number] Insertion Of Non-tunneled Catheter Age 4 Yrs> ([id number]) Tubes, Drains, and Vasc Access - Tubes, Drains, and Vasc Access: [id number] Ultrasound Guidance For Vascular ([id number]) Additional Codes Date of Service ([email or web address])
[2024-03-17 12:47] VITALS: O2SAT 95
--- NOTE | 2024-03-17 13:17 | Discharge Summary ---
Date of Service March 17, 2024 Admission HPI Per Admitting Provider Dre Vera is a 73y/o M with PMHx significant for dyslipidemia, peripheral vascular disease, Buerger's disease, HTN, BPH with obstruction/lower urinary tract symptoms, urinary retention, bilateral renal cyst, epilepsy, history of pulmonary embolism, monoclonal IgG kappa gammopathy, orthostatic hypotension, cirrhosis and tobacco use disorder who presented to the ED on 03/13/2024 for evaluation of left lower leg pain. History obtained from the patient, at bedside (whom is a nurse) and associated chart review. Patient with worsening left lower leg pain since yesterday morning. reports that he has been having some pain in that left lower leg with ambulation for a few weeks however it worsened more so yesterday and has not improved. Admits that he has noticed some discoloration in his left foot and that it is cooler to the touch. Denies any recent fevers but does endorse some intermittent chills which he mentions he has had since being on midodrine. He had COVID about a year ago and has been dealing with some chronic shortness of breath with exertion since that however he has not required any supplemental oxygen use. He denies any recent increase in the shortness of breath but has been dealing with some sinus congestion. He reports that he had a urine sample taken earlier this month that was infected but he was never started on an oral antibiotic course. He mentions he has been having some burning with urination intermittently. He is currently being worked up by [facility] [Dr. Brian Dyson]. There was concern of the possibly that the patient may have multiple myeloma as there was evidence of Bence-Cosme proteins in a recent urine sample as an outpatient. He had a bone marrow biopsy done on 03/05/2024 and patient was not made aware of the results. He has a PET scan scheduled next week on 03/19/2024. According to outpatient records on [facility], it was also suspected that the patient may have amyloidosis due to postural hypotension, nephrotic range proteinuria and hepatomegaly. reports he was recently diagnosed with cirrhosis back in October of this year. reports that he is not as active as he used to be. Patient mentions that his energy level has significantly declined over the past month or so. Patient does have previous issues with urinary retention. He has seen Dr. Duglas Tadeo [[facility]] as an outpatient. reports that he has had to self catheterize and she has even had to put in a Sousa catheter at home to help drain his bladder. According to outpatient records on [facility], he is supposed to undergo cystoscopy to evaluate his lower urinary tract anatomy. He was started on finasteride in January of this year which seems to be helping per his . Patient reports he was diagnosed with Buerger's disease in 2020. He has a history of PE back in the late following a surgical procedure but has not dealt with any clots since then. He is not currently on any anticoagulation therapy as an outpatient. He is unsure of who diagnosed him with Buerger's disease. Patient and his were unsure of the pathophysiology of this disease as well. They report they were never educated well on this diagnosis. Admission Exam Per Admitting Provider General: WD/WN, vitals as above, NAD, sitting up in bed, pleasant, conversing appropriately, at bedside. A+Ox3, euthymic affect. HEENT: Normocephalic, atraumatic. Conjunctivae normal, anicteric sclerae. External ear and nose normal, oropharynx normal. Respiratory: Normal respiratory effort, lungs clear to auscultation, no wheeze, rales, rhonchi. No accessory muscle use. Cardiovascular: Regular rate, rhythm, no murmur, no BLE edema. Vessels: No JVD. Abdomen/GI: Normal bowel sounds, distended but soft, nontender. Extremities/Musculoskeletal: L lower leg and foot cool to the touch, L foot with evidence of mottling. Neurologic: No focal deficits, CN's II-XI not formally tested but appear grossly intact bilaterally. 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 plasma cell neoplasm on kidney/Multiple Myeloma/light chain cast nephropathy, interstitial nephritis, amyloidosis Cirrhosis Discharge Data Allergies Allergy/AdvReac Type Severity Reaction Status Date / Time dorzolamide Allergy Severe eyes Verified 01/18/24 11:40 swollen azithromycin Allergy Intermediate Rash Verified 01/18/24 11:40 Consultations 03/13/24 14:46 Consult Vascular Surgery Stat ED Decision to Admit Stat 03/14/24 12:13 Consult Loan Processing Supervisor Routine 03/16/24 01:18 Consult Nephrology Routine Laboratory Results WBC 11.94 K/ul (4.8-10.8) H 03/17/24 05:10 RBC 3.51 M/uL (4.70-6.10) L 03/17/24 05:10 Hgb 10.6 g/dl (14.0-18.0) L 03/17/24 05:10 Hct 31.0 % (42.0-52.0) L 03/17/24 05:10 MCV 88.3 fL (80.0-100.0) 03/17/24 05:10 MCH 30.2 pg (25.0-34.0) 03/17/24 05:10 MCHC 34.2 g/dL (32.0-36.0) 03/17/24 05:10 RDW Std Deviation 61.0 fL (36.4-46.3) H 03/17/24 05:10 RDW Coeff of Vince 19.0 % (11.5-14.5) H 03/17/24 05:10 Plt Count 220 K/uL (130-400) 03/17/24 05:10 MPV 10.2 fL (9.4-12.4) 03/17/24 05:10 Immature Gran % (Auto) 1.5 % 03/15/24 04:56 Neut % (Auto) 84.6 % 03/15/24 04:56 Lymph % (Auto) 5.2 % 03/15/24 04:56 [place] % (Auto) 8.5 % 03/15/24 04:56 Eos % (Auto) 0.0 % 03/15/24 04:56 Baso % (Auto) 0.2 % 03/15/24 04:56 Neut # (Auto) 16.98 K/uL (1.40-6.50) H 03/15/24 04:56 Lymph # (Auto) 1.04 K/uL (1.20-3.40) L 03/15/24 04:56 [place] # (Auto) 1.70 K/uL (0.11-0.59) H 03/15/24 04:56 Eos # (Auto) 0.00 K/uL (0.00-0.50) 03/15/24 04:56 Baso # (Auto) 0.04 K/uL (0.00-0.20) 03/15/24 04:56 Immature Gran # (Auto) 0.30 K/uL (0.01-0.20) H 03/15/24 04:56 Absolute Nucleated RBC 0.02 K/uL (0.00-0.12) 03/17/24 05:10 Nucleated RBC % (auto) 0.2 % 03/17/24 05:10 Polychromasia 1+ 03/14/24 19:17 Anisocytosis Present 03/15/24 04:56 Echinocytes 1+ 03/13/24 13:30 PT 13.0 Seconds (9.0-12.0) H 03/13/24 13:30 INR 1.2 (0.9-1.1) H 03/13/24 13:30 APTT 39 Seconds (21-31) H 03/15/24 04:56 PTT Ratio 1.4 03/15/24 04:56 Fibrinogen 319 mg/dl (184-400) 03/15/24 04:56 Heparin Anti-Xa, Unfract 0.13 IU/ml (0.3-0.7) L 03/14/24 08:49 Sodium 139 mmol/L (136-145) 03/17/24 05:10 Potassium 4.6 mmol/L (3.5-5.1) 03/17/24 05:10 Chloride 108 mmol/L (98-107) H 03/17/24 05:10 Carbon Dioxide 21 mmol/L (21-32) 03/17/24 05:10 Anion Gap 10 (3-11) 03/17/24 05:10 BUN 121 mg/dl (6-23) H 03/17/24 05:10 Creatinine 4.15 mg/dl (0.6-1.4) H D 03/17/24 05:10 Est Cr Clr Drug Dosing 19.0 ml/min 03/17/24 05:10 eGFR 14.32 03/17/24 05:10 BUN/Creatinine Ratio 29.2 (10-20) H 03/17/24 05:10 Glucose 85 mg/dl (70-99(Fasting)) 03/17/24 05:10 POC Glucose 112 mg/dl (70-99) H 03/15/24 21:43 Calcium 7.6 mg/dl (8.6-10.3) L 03/17/24 05:10 Phosphorus 5.5 mg/dl (2.5-4.9) H 03/14/24 08:49 Magnesium 2.1 mg/dl (1.7-2.4) 03/16/24 04:27 Total Bilirubin 0.3 mg/dl (0.2-1.0) 03/14/24 08:49 AST 52 U/L (13-39) H 03/14/24 08:49 ALT 32 U/L (7-52) 03/14/24 08:49 Alkaline Phosphatase 627 U/L (34-104) H 03/14/24 08:49 B-Natriuretic Peptide 445 pg/ml (0-100) H 03/13/24 13:30 Total Protein 4.6 gm/dl (6.0-8.3) L 03/14/24 08:49 Albumin 1.6 gm/dl (3.4-5.0) L 03/14/24 08:49 Globulin 3.0 gm/dl (2.5-4.0) 03/14/24 08:49 Albumin/Globulin Ratio 0.5 (0.9-2) L 03/14/24 08:49 Triglycerides 106 mg/dl (0-150) 03/14/24 08:49 Cholesterol 380 mg/dl (0-200) H 03/14/24 08:49 LDL Cholesterol, Calc 322 mg/dl 03/14/24 08:49 VLDL Cholesterol, Calc 21 mg/dl (0-30) 03/14/24 08:49 HDL Cholesterol 37 mg/dl 03/14/24 08:49 Cholesterol/HDL Ratio 10.3 (0-5) H 03/14/24 08:49 Urine Color Yellow 03/15/24 21:40 Urine Appearance Cloudy (Clear) A 03/15/24 21:40 Urine pH 5.5 (4.5-7.5) 03/15/24 21:40 Ur Specific [place] 1.017 (1.000-1.030) 03/15/24 21:40 Urine Protein 4+ (Negative) H 03/15/24 21:40 Urine Glucose (UA) Negative (Negative) 03/15/24 21:40 Urine Ketones Negative (Negative) 03/15/24 21:40 Urine Blood 2+ (Negative) H 03/15/24 21:40 Urine Nitrite Negative (Negative) 03/15/24 21:40 Urine Bilirubin Negative (Negative) 03/15/24 21:40 Urine Urobilinogen Negative (Negative) 03/15/24 21:40 Ur Leukocyte Esterase 1+ (Negative) H 03/15/24 21:40 Urine WBC (Auto) 21-50 /hpf (0-5) H 03/15/24 21:40 Urine RBC (Auto) 6-10 /hpf (0-2) H 03/15/24 21:40 U Hyaline Cast (Auto) >20 /lpf (0-2) H 03/15/24 21:40 U Epithel Cells (Auto) 0-2 /hpf (0-2) 03/15/24 21:40 Urine Bacteria (Auto) None Seen (None Seen) 03/15/24 21:40 Amorphous Sediment Present (None Prsent) A 03/15/24 21:40 Hyaline Casts Present /lpf (None Presnt) A 03/13/24 Unknown Granular Casts Present /lpf (None Prsent) A 03/15/24 21:40 Blood Type A Positive 03/13/24 16:50 Antibody Screen NEGATIVE 03/13/24 16:50 Crossmatch See Detail 03/13/24 16:50 Impressions Duplex Scan Lower Extremity Artery 03/13/24 17:51 Exam(s): US ARTERIAL RIGHT LOWER EXTREMITY EXAM: US Duplex Right Lower Extremity Arteries CLINICAL HISTORY: Reason for exam: PAD. TECHNIQUE: Real-time duplex ultrasound scan of the right lower extremity arteries integrating B-mode two-dimensional vascular structure, Doppler spectral analysis and color flow Doppler imaging. COMPARISON: None. FINDINGS: Right common femoral artery: There is elevated peak systolic flow velocity: 233 cm/s. No occlusion . Normal triphasic waveform. Right superficial femoral artery: No acute findings. No occlusion or significant stenosis on color flow and spectral Doppler imaging. Normal waveform. Right popliteal artery: No acute findings. No occlusion or significant stenosis on color flow and spectral Doppler imaging. Normal waveform. Right calf/foot arteries: No acute findings. No occlusion or significant stenosis on color flow and spectral Doppler imaging. Triphasic/biphasic waveforms Soft tissues: Unremarkable.. IMPRESSION: Elevated velocity of the right GLASSWARE ENGRAVER: Hemodynamically significant stenosis. Mild/moderate arterial atherosclerosis below the knee joint. No high-grade stenosis or occlusion demonstrated in the rest of the right lower extremity arteries. . Electronically signed by: Ramana Flynn MD, DABR 03/14/24 01:42 AM Renal Ultrasound 03/15/24 20:53 Exam(s): US RENAL EXAM: US Retroperitoneal Limited, Renal CLINICAL HISTORY: Reason for exam: worsening kidney dyfunction. TECHNIQUE: Real-time limited ultrasound of the retroperitoneum with image documentation. COMPARISON: CT abdomen and pelvis: 11/19/2023 FINDINGS: Right kidney: 12.0 x 4.5 x 5.0 cm in size. Multiple cortical cysts, largest is 2.3 x 2.3 x 2.1 cm. No stones. No solid mass. No hydronephrosis. Left kidney: 12.8 x 7.3 x 5.8 cm in size. Cortical cysts, largest is 1. 1 x 0.8 x 0.7 cm. No stones. No solid mass. No hydronephrosis. Other findings: Large amount of abdominal ascites is visualized. . IMPRESSION: Bilateral renal cortical cysts. Neither kidney shows calculi, hydronephrosis or discernible solid mass. . Electronically signed by: Ramana Flynn MD, DABR 03/16/24 00:49 AM Procedures Performed Operation Date: 03/15/24 11:45 Actual Procedures p LEFT ABOVE THE KNEE AMPUTATION, REMOVAL OF INFUSION CATHETER RIGHT GROIN (Left) - Abhishek Smith MD Ordered Studies 03/13/24 12:48 US arterial duplex LE LT Stat 03/13/24 17:51 US arterial duplex LE RT Routine 03/14/24 09:57 EV angio LE LT Routine US EV guide vascular access Routine 03/15/24 20:53 US renal/blad retro comp Urgent 03/17/24 12:06 US point of care ultrasound Routine Hospital Course (1) Occlusion of artery of lower extremity: Plan Patient is a 73 yr male with H/O significant for dyslipidemia, peripheral vascular disease, Buerger's disease, HTN, BPH with obstruction/lower urinary tract symptoms, urinary retention, bilateral renal cyst, epilepsy, history of pulmonary embolism, monoclonal IgG kappa gammopathy, orthostatic hypotension, cirrhosis with ascites, CKD stage III and tobacco use disorder who presented to the ED on 03/13/2024 for evaluation of left lower leg pain and was found to have an occlusion of the distal left calf vessels on arterial ultrasound imaging. LLE Arterial Occlusion, Buerger's Disease: LLE Arterial Doppler US --> Extensive atherosclerotic plaque within the LLE, findings consistent with a stenosis (likely severe) within the mid L superficial femoral artery, markedly diminished flow within the L calf vessels and minimal flow within the proximal L calf vessels without definite distal flow suggesting occlusion of the distal L calf vessels. S/P mechanical thrombectomy, tPA, IV Heparin>> no improvement needing amputation S/P left above-knee amputation by Dr. Smith on 03/15/2024 Acute blood loss anemia Pain control Continue local wound care Follow-up pathology results--pending Appreciate vascular surgery, piano regulator help Consider to add aspirin, statin as able Needs follow-up with vascular surgery on discharge Hemoglobin 10.6 today, drop partly dilutional secondary to volume overload Monitor CBC closely Leukocytosis trending down Acute kidney injury on CKD III Nephrotic range proteinuria Volume overload Baseline creatinine ~1 to 1.5 DD: Hepatorenal syndrome, plasma cell neoplasm of kidney, light chain cast nephropathy, plasma cell infiltration etc. H/O bilateral renal cysts, undergoing diagnostic workup for plasma cell neoplasm, monoclonal IgG [place] gammopathy. Plan for PET scan as outpatient H/O urinary retention, BPH --Renal USD:Bilateral renal cortical cysts. Neither kidney shows calculi, hydronephrosis or discernible solid mass. Avoid nephrotoxic agents as able Cr:4.15 tofday Follows with [facility] nephrology as outpatient Received IV fluids IV albumin discontinued Urine culture negative to date Continue Sousa catheter Monitor urine output, volume status closely Given worsening uremia, nephrology plans to initiate dialysis today Appreciate nephrology help Patient will need biopsy of the kidney to understand clear etiology. Patient is accepted at [facility], awaiting bed availability. Leukocytosis, Recent Untreated UTI: CXR reviewed and without any evidence of consolidation Recent outpatient UA done on 03/06/2024 that was infected, which he never rece ived ABX for. Empiric Rocephin discontinued today 2/2 negative urine cx Repeat urine culture negative to date Monitor Cirrhosis: reports he was recently diagnosed with cirrhosis back in October of this year. He recently saw Dr. Edmonds with [facility] in January. It was thought that his presumed etiology of cirrhosis was drug-induced +/- undiagnosed prior history of fatty liver disease. Follow-up as outpatient Hyperlipidemia: Lipid panel this admission -> Total cholesterol 380, LDL 322, HDL 37. Patient was previously on statin therapy however this was stopped for unknown re asons. He would benefit from resumption of statin therapy and possibly even daily ASA Seizure Disorder: Patient was previously on phenobarbital, however he stopped taking this medication approximately 2 months ago. He has not had a seizure since 1975. Seizure precautions Tobacco Use Disorder: Patient smokes approximately 3 to 4 cigarettes/day. Encourage smoking cessation. Denies need for nicotine patch History of Proteinuria: Monoclonal IgG kappa gammopathy He is currently being worked up by [facility] - Dr. Brian Dyson. There was concern of the possibly that the patient may have multiple myeloma as there was evidence of Bence-Cosme proteins in a recent urine sample as an outpatient. He had a bone marrow biopsy done on 03/05/2024 and patient was not made aware of the results. He has a PET scan scheduled on 03/19/2024. According to outpatient records on [facility], it was also suspected that the patient may have amyloidosis due to postural hypotension, nephrotic range proteinuria and hepatomegaly. DVT Px IV heparin discontinued Consider starting SQ heparin if ok with surgery Code Status: FULL CODE Disposition: 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 David Quach and Smoke Tester at [facility] for further Management Follow up with Vascular surgery as recommended Seek immediate medical attention if your symptoms reoccur or worsen Please take all medications as instructed on discharge list below. Please call if you have any questions or problems. You can reach a [facility] hospitalist on duty at [facility] 24 hours a day by calling [phone] [facility] Security Systems Integrator Provider Instructions: Current Inpatient Medications Acetaminophen (Acetaminophen 500 Mg Tab) 500 mg PO Q6H PRN PRN Reason: fever/pain Stop: 04/14/24 20:40 Baclofen (Baclofen 10 Mg Tab) 5 mg PO TID PRN PRN Reason: Hiccups Stop: 04/15/24 20:59 Last Admin: 03/16/24 16:50 Dose: 5 mg Finasteride (Finasteride 5 Mg Tab) 5 mg PO DAILY MICHELLE Stop: 04/13/24 08:59 Last Admin: 03/16/24 09:03 Dose: 5 mg Hydromorphone HCl (Hydromorphone Inj 1 Mg/Ml Syringe) 1 mg IV Q1HWA PRN PRN Reason: Pain Stop: 03/28/24 16:00 Last Admin: 03/15/24 18:52 Dose: 1 mg Cefazolin Sodium (Ancef 2000mg) 2,000 mg in 15 mls @ 3.75 mls/min IV Q8H MICHELLE Stop: 03/16/24 19:59 Last Admin: 03/16/24 12:05 Dose: 3.75 mls/min Promethazine HCl (Phenergan) 6.25 mg in 50.25 mls @ 201 mls/hr IV Q6H PRN PRN Reason: Nausea And Vomiting Stop: 04/14/24 20:09 Last Infusion: 03/15/24 21:15 Dose: Infused Albumin Human (Albumin 25%) 25 gm in 100 mls @ 50 mls/hr IV Q8H MICHELLE Stop: 03/19/24 00:00 Last Admin: 03/16/24 16:51 Dose: 50 mls/hr Latanoprost (Latanoprost 0.005% Op Soln 2.5 Ml Btl) 1 drops OPB DAILY MICHELLE Stop: 04/13/24 08:59 Last Admin: 03/16/24 09:05 Dose: 1 drops Magnesium Hydroxide (Magnesium Hydroxide Susp 30 Ml Udc) 30 ml PO Q12H PRN PRN Reason: Constipation Stop: 04/12/24 16:34 Midodrine (Midodrine Hcl 10 Mg Tab) 10 mg PO BID PRN PRN Reason: SBP LESS THAN 100 Stop: 04/12/24 16:59 Ondansetron HCl (Ondansetron Inj 2 Mg/Ml 2 Ml Vial) 4 mg IV Q6H PRN PRN Reason: Nausea And Vomiting Stop: 04/13/24 12:12 Last Admin: 03/16/24 09:07 Dose: 4 mg Oxycodone HCl (Oxycodone Hcl Ir 5 Mg Tab (Immediate Release)) 5 mg PO Q4H PRN PRN Reason: Pain Stop: 03/29/24 14:40 Last Admin: 03/16/24 15:11 Dose: 5 mg Polyethylene Glycol (Polyethylene (Miralax) 17 Gm Pack) 17 gm PO DAILY PRN PRN Reason: Constipation Stop: 04/12/24 16:34 Pending Studies at Discharge: Yes Studies:: Urine Culture Stand-Alone Forms: [facility] Skilled Items Patient informed of condition?: Yes DNR: No Discharge Level of Care: Other Communicable Disease: No Discharge Prognosis: Stable Lines: Peripheral IV Urinary Catheter: Yes Medications and DC Order Prescriptions: Continued latanoprost 0.005 % Drops 1 drp OPB DAILY finasteride 5 mg Tablet 5 mg PO DAILY Held midodrine 10 mg tablet 10 mg PO TID Qty: 60 5RF Hold Instructions: until further recommendations furosemide 20 mg tablet 40 mg PO BID Hold Instructions: Hold until further recommendations Discharge Orders: Discharge Order (Routine); Ordered 03/17/24 Ordered By: Munir Hough Admission Data Admit Date/Time: 03/13/24 15:11 Attending Provider: Munir Hough Admit Provider: Munir Hough Primary Care Provider: Rahul Tucker Other Providers: [place]; [facility]; Abhishek Smith; Munir Hough; Champ Marino; Cricket Warren; Martin Chiu; Jhoan Vidales; Valentino Kent; Berta Tellez; Johan Tadeo; Rebecca Bernabe; Tila Mazariegos; Benjamin Prado; Kyrie Mercer; Enedelia Jameson; Darby Mayorga; Madi Persaud; Arvin Swann; Chrissy Ferraro; Erna Covarrubias.
--- NOTE | 2024-03-17 13:41 | XRay Report ---
XR chest 1V portable HISTORY: 73 years-old Male lines status post placement of a right IJ central venous catheter COMPARISON: 03/15/2024 TECHNIQUE: AP view of the chest FINDINGS: Status post placement of a right IJ central venous catheter with distal tip in the expected location of the mid SVC. No pneumothorax. Pulmonary vascular congestion. Trace pleural effusions. Cardiomegaly . Right shoulder arthroplasty. IMPRESSION: 1. Status post placement of a right IJ central venous catheter. No postprocedural pneumothorax. 2. Cardiomegaly with pulmonary vascular congestion and trace pleural effusions. ACT 112: Negative or not required by law. The above report was generated using voice recognition software. It may contain grammatical, syntax o r spelling errors. Electronically signed by: Trevon Veliz M.D. 03/17/2024 1:39 PM
[2024-03-17 16:14] VITALS: BP 141/73; PULSE 66; TEMP 98.1
--- NOTE | 2024-03-18 19:08 | Electrocardiogram Report ---
Test Reason : Blood Pressure : */* mmHG Vent. Rate : 75 BPM Atrial Rate : 75 BPM P-R Int : 156 ms QRS Dur : 92 ms QT Int : 392 ms P-R-T Axes : 53 -59 82 degrees QTcB Int : 437 ms Normal sinus rhythm Left anterior fascicular block Possible Lateral infarct , age undetermined Abnormal ECG When compared with ECG of 19-Nov-2023 12:06, No significant change was found Confirmed by Blas Jansen ([id number]) on 03/18/2024 7:08:23 PM Referred By: REFERRED SELF Confirmed By: Blas Jansen
--- NOTE | 2024-03-27 10:02 | Operative Report ---
Post Operative Report Pre & Post Diagnosis Operation Date: 03/15/24 11:45 Pre-Op Diagnosis: LEFT LOWER EXTREMITY ARTERIAL OCCLUSION Post-Op Diagnosis: LEFT LOWER EXTREMITY ARTERIAL OCCLUSION I identified the patient and participated in the time-out.: Yes Procedure Operation Date: 03/15/24 11:45 Actual Procedures p LEFT ABOVE THE KNEE AMPUTATION, REMOVAL OF INFUSION CATHETER RIGHT GROIN, DISCONTINUATION OF THROMBOLYSIS (Left) - Abhishek Smith MD Surgeon Abhishek Smith MD Deputy Juvenile Officer Kaitlyn,PAC Estimated Blood Loss 250 Findings Consistent with Post-Op Diagnosis Specimens none Anesthesia Type General Complications none Disposition Accompanied Patient To Recovery: No Disposition: Recovery Room Indications This is a 74-year-old gentleman with severe ischemia left lower extremity. He underwent thrombectomy of his left superficial femoral artery and anterior tibial artery as well as thrombolytic therapy overnight. We were able to restore flow down to just above the knee but were unable to restore flow below the knee. He was in severe pain in the foot is fairly ischemic with no motion or sensation in the foot. Above-knee amputation and discontinuation of the thrombolytics was recommended. I have discussed the risks options and benefits of the procedure with the patient. The patient understands the risks options and benefits and agrees to the procedure. Description of Procedure The patient was taken the operating placed spine position. After general anesthesia was accomplished left lower extremity right groin prepped draped in a sterile manner. The infusion catheter was removed from the right groin sheath. We then inserted a 035 wire. Sheath was then pulled and the puncture site was closed with a Star closure device. Added hemostasis was noted. We then addressed the left lower extremity. We made a fishmouth incision just above the knee. The muscle of the anterior thigh were then transected using electrocautery. Once the femur was identified the periosteum was elevated. The femur was then transected using the Gigli saw. The posterior flap was then completed using the amputation knife and the leg was removed. Added hemostasis was obtained using free ties and suture ligatures. Once adequate hemostasis was noted the posterior fascial layer was brought up to the anterior fascial layer and approximated using 3-0 Vicryl sutures. Once this was completed the laly were used for the skin incision. Sterile dressings were applied to the wound.The patient left the operation room in satisfactory condition and tolerated the procedure well. All needle and sponge counts were correct at the end of the procedure. Bonnie Parikh Pac assisted due to lack of resident availability and was necessary for positioning, draping, retraction, wound closure deep layers, subcutaneous tissue, and skin closure and was necessary for assisting with the case. I attest to the content of the Intraoperative Record and any orders documented therein. Any exceptions are noted below.
--- NOTE | 2024-04-22 09:30 | Operative Report ---
Post Operative Report Pre & Post Diagnosis Operation Date: 03/14/24 10:15 Pre-Op Diagnosis: Left lower extremity occlusion Post-Op Diagnosis: Left lower extremity occlusion identified the patient and participated in the time-out.: Yes I identified the patient and participated in the time-out.: Yes Procedure Procedure Operation Date: 03/14/24 10:15 Actual Procedures p Mechanical thrombectomy left superficial femoral artery and anterior tibial artery, [employer] and stenting left superficial femoral artery, institution of TPA, left lower extremity arteriogram, ultrasound right common femoral artery(right) - Abhishek Smith MD Surgeon Abhishek Smith MD Junior [employer] Math Teacher KaitlynPAC Estimated Blood Loss 250 Findings Consistent with Post-Op Diagnosis Specimens none Anesthesia Type General Complications none Disposition Accompanied Patient To Recovery: No Disposition: Surgical ICU Indications This is a 69 severe right lower extremity ischemia. He has had multiple vascular procedures in the past. Attempt at Thrombectomy was recommended. I have discussed the risks options and benefits of the procedure with the patient. The patient understands the risks options and benefits and agrees to the procedure. Description of Procedure The patient was taken the operating placed spine position. General anesthesia was then accomplished. After groins and left lower extremities prepped draped in a sterile manner a timeout was performed and the patient was identified. Using ultrasound the right common femoral artery was identified. It was percutaneously punctured under ultrasound guidance. The common femoral artery is patent on ultrasound. 035 wire inserted as well as a rim catheter. This was passed around to the left side and advanced into the external iliac artery.Arteriography was then performed which showed occlusion of superficial femoral-popliteal popliteal vessels. A stiffened 035 wire was inserted. the 5fr sheath was exchanged to a 7fr destination sheath. The 035 wire was reinserted and passed down through the superficial femoral artery through the popliteal into the tibioperoneal. using an AngioJet catheter mechanical thro mbectomy was performed of the superficial femoral artery popliteal artery and the anterior tibial artery. Superficial femoral artery had a significant narrowing in the midportion. The wire was exchanged to an 018 wire and a 6x15 Viabahn stent inserted. Good results were seen, There was still no flow in the infrapopliteal vessels even after the mechanical thrombectomy of the popliteal and ant tibial artery. We therefore inserted an infusion catheter and began TPA infusion into the infrapopliteal vessels. Sterile dressing were the applied to the sheath insertion site and the patient transported to the ICU to continue TPA infusion. The patient left the operation room in satisfactory condition and tolerated the procedure well. All needle and sponge counts were correct at the end of the procedure. Bonnie Parikh Pac assisted due to lack of resident availability and was necessary for positioning, draping, retraction, wound closure deep layers, subcutaneous tissue, and skin closure and was necessary for assisting with the case. I attest to the content of the Intraoperative Record and any orders documented therein. Any exceptions are noted below.
== END 2024-03-17 16:35 | disposition short-term general hospital (02) | DRG 270 ==
LOC: ED 12:13 → 2S 15:11 → 1E 03-14 12:34 → 2E 03-16 14:47

== ENCOUNTER 2024-05-05 16:35 | Inpatient (IN) ==
--- OUTSIDE RECORDS SUMMARY | 2024-05-05 16:42 | External Medical Summary | Summary of Care ---
Author Name Unknown Organization [facility] Address [address] [place] [address] Phone [phone] Care Team Providers Care International Student Counselor Name Role Phone Rahul Tucker MD Primary Care Provide r Reason for Visit * Reason Onset Date Comments Advice 05/02/2024 Benadryl Encounter Details Date Type Department Care Team (Late st Contact Info) Description 05/02/2024 Telephone Hematology/Oncology [facility] [address] [place] [phone] Brian Dyson MD [address] [place] [address] Advice (Benadryl) Allergies Active Allergy Reactions Criticality Noted Date Comments Azithromycin Hives 12/10/2010 documented as of this encounter (statuses as of 05/02/2024) Medications Finasteride 5 MG Oral Tablet (Proscar) Take 1 Tablet by mouth in the morning. 90 Tablet 3 02/28/20 24 Active Latanoprost 0.005 % Ophthalmic Solution (Xalatan) Instill into eye. Ac tive Aspirin 81 MG Oral Tablet Delayed Release Take 1 Tablet by mouth in the morning. Active Atorvastatin Calcium 40 MG Oral Tablet (Lipitor) Take 1 Tablet by mouth every afternoon. 30 Tablet 5 03/29/20 24 Active Additional Information Patient not taking.Reported on 04/18/2024 Bisacodyl 5 MG Oral Tablet Delayed Release (Dulcolax) Take 1 Tablet by mouth twice per day (morning, before bedtime). 60 Tablet 5 03/29/20 24 Active Additional Information Patient not taking.Reported on 04/18/2024 Polyethylene Glycol 3350 17 GM/SCOOP Oral Powder (Miralax) Mix and dissove one capful (to fill line) in 8 oz of juice or water and take by mouth twice per day (morning, before bedtime). 238 g 03/29/20 Active Sennosides-Docu sate Sodium 8.6-50 MG Oral Tablet (Senokot-S) Take 1 Tablet by mouth in the morning and 1 Tablet at noon and 1 Tablet before bedtime. 90 Tablet 5 03/29/20 Active Additional Information Patient not taking.Reported on 04/22/2024 LiquaCel Oral Liquid Take 30 mL by mouth in the morning and 30 mL before bedtime. 1920 mL 11 03/29/20 24 025 Active Additional Information Patient not taking.Reported on 04/22/2024 Prochlorperazin e Maleate 10 MG Oral Tablet (Compazine)Kathryn cations:Light chain (AL) amyloidosis (HCC) Take 1 Tablet by mouth every 6 hours as needed for Nausea. 30 Tablet 3 04/11/20 24 Active Ondansetron HCl 8 MG Oral Tablet (Zofran)Indicat ions:Light chain (AL) amyloidosis (HCC) Take 1 Tablet by mouth every 8 hours as needed for Nausea. 30 Tablet 2 04/11/20 24 Active dexAMETHasone 4 MG Oral Tablet (Decadron)Indic ations:Light chain (AL) amyloidosis (HCC) Take 5 tablets by mouth once a week prior to treatment for 3 weeks, then 10 tablets weekly after. 55 Tablet 04/11/20 24 Active Acyclovir 400 MG Oral Tablet (Zovirax)Indica tions:Light chain (AL) amyloidosis (HCC) Take 1 Tablet by mouth in the morning and 1 Tablet before bedtime. 180 Tablet 1 04/11/20 24 Active Omeprazole 20 MG Oral Capsule Delayed Release (PriLOSEC)Indic ations:Light chain (AL) amyloidosis (HCC) Take 1 Capsule by mouth in the morning. 30 Capsule 1 04/16/20 24 Active cycloPHOSphamid e 50 MG Oral Capsule (Cytoxan)Indica tions:Amyloidos is, unspecified type (HCC) Take 6 capsules by mouth once a week. 24 Capsule 5 4 11:58 AM EST 04/18/20 24 Active Warfarin Sodium 5 MG Oral Tablet (Coumadin) Take up to 1 tablet by mouth daily as directed by anticoagulation clinic. 30 Tablet 5 04/19/20 24 Active Gabapentin 100 MG Oral Capsule (Neurontin) Take 1 capsule in AM and 1 capsule in afternoon. 04/22/20 24 Active Gabapentin 300 MG Oral Capsule (Neurontin) Take 1 Capsule by mouth at bedtime. 90 Capsule 3 04/26/20 24 Active Torsemide 20 MG Oral Tablet (Demadex) Take 3 Tablets by mouth in the morning. 90 Tablet 5 04/29/20 24 Active Midodrine HCl 10 MG Oral Tablet (Proamatine) Take 1 Tablet by mouth in the morning and 1 Tablet at noon and 1 Tablet in the evening. 60 Tablet 3 04/29/20 24 Active oxyCODONE HCl 5 MG Oral Tablet (Oxy IR) Take 1 Tablet by mouth at bedtime as needed for Pain, Severe. 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 Nephrotic range proteinuria 03/18/2024 Status post above-knee amputation of left lower extremity 03/18/2024 Cirrhosis of liver 03/17/2024 Retention of urine 02/28/2024 Renal cysts, acquired, bilateral 02/28/2024 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 08/16/2018 Tobacco use disorder 06/17/2014 Peripheral vascular disease 03/05/2012 HTN, goal below 140/90 12/10/2010 Dyslipidemia, goal LDL below 100 12/10/2010 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 (statuses as of 05/02/2024) Resolved Problems Problem Noted Date Diagnosed Date Resolved Date CKD (chronic kidney disease) stage 5, GFR less than 15 ml/min 03/28/2024 04/22/2024 Carpal tunnel syndrome 06/17/201402/08 Allergic rhinitis 06/17/2014 02/08/2018 Adjustment disorder with depressed mood 12/10/2013 07/20/2017 Eczema 06/22/2012 07/20/2017 Epileptic seizure 12/10/2010 08/16/2018 documented as of this encounter (statuses as of 05/02/2024) Immunizations Name Administration Dates Next Due Pneumococcal Conjugate Vacc, 13 Valent (Prevnar) 06/17/2014 Pneumococcal Conjugate Vacci ne, 20-valent ([id number]) 02/15/2022 Pneumococcal Polysaccharide PPV23 (Pneumovax) 05/19/2016 Seasonal Influenza, PF, 6 M & above, IM , (FluLaval or Fluzone) 02/15/2022,02/28/2020,03/01/2019,02/08 Seasonal Influenza, Quadriva lent Hd (Fluzone Hd) 02/26/2021 Seasonal Influenza, Trivalen t, (IIV3), PF, (Fluzone) 02/13/2016,01/29/2014,01/23/2013 TDAP (age 10 and older)(Boostrix) 11/17/2011 Varicella Zoster Vaccine (Adult) 01/23/2013 documented as of this encounter Social History Tobacco Use Types Packs/Day Years Used Date Smoking Tobacco: Former Cigarettes 0.5 11 Cigars Smokeless Tobacco: Former Quit: 01/08/2015 Comments:Quit 6 weeks ago Alcohol Use Standard Drinks/Week Comments Never 0 (1 standard drink = 0.6 oz pur e alcohol) PHQ-2 Answer Date Recorded PHQ Adult Total Score 2 04/18/2024 Hunger Vital Sign Answer Date Recorded Within the past 12 months, y ou worried that your food would run out before you got the money to buy more. Never true 04/18/20 24 Within the past 12 months, t he food you bought just didn't last and you didn't have money to get more. Never true 04/18/2024 Childcare Answer Date Recorded Do you feel overwhelmed with taking care of a child, family member or friend? No 04/18/2024 Does your family need help f inding childcare? (Household - for ages 0-17 years) Not on file 04/18/2024 Clothing Answer Date Recorded Have you been unable to get clothing when it was really needed? No 04/18/2024 Is your family able to get c lothes or diapers when needed? (Household - for ages 0-17 years) Not on file 04/18/2024 Personal Safety Answer Date Recorded Do you feel unsafe or have concerns for your saf ety? No 04/18/2024 Do you have concerns for you r family's safety? (Household - for ages 0-17 years) Not on file 04/18/2024 Utilities Answer Date Recorded Do you have trouble paying y our heating, water, or electric bill? No 04/18/2024 Is your family able to pay t he heat, water, or electric bill? (Household - for ages 0-17 years) Not on file 04/18/2024 Does your family have access to good internet? (Household - for ages 0-17 years) Not on file 04/18/2024 Employment Status Answer Date Recorded Are you unemployed or without regular income? No 04/18/2024 Does the [facility] have a [facility] source [facility] income? (Household - for ages 0-17 years) Not on file 04/18/2024 Social Connections Answer Date Recorded How often do you feel lonely or isolated from th ose around you? Never 04/18/2024 Financial Resource Strain Answer Date R ecorded Do you have any trouble payi ng for your medications, or do you think you might in the future? No 04/18/2024 Does your family have troubl e paying for medicine? (Household - for ages 0-17 years) Not on file 04/18/2024 Transportation Needs Answer Date Record ed Do you have trouble getting a ride to medical visits or work? (Adult - for ages 18 years and over) Not on file 04/18/2024 Does your family have a hard time getting a ride to doctors visits? (Household - for ages 0-17 years) Not on file 04/18/2024 Has lack of transportation k ept you from medical appointments, meetings, work, or from getting things needed for daily living? Check all that apply. No 04/18/2024 Do you (or your family) have trouble finding or paying for a ride (transportation)? (Household - for ages 0-17 years) Not on file 04/18/2024 Housing Stability Answer Date Recorded Do you currently live in a s helter or have no steady place to sleep at night? No 04/18/2024 Do you think you are at risk of becoming homeless? (Adult - for ages 18 years and over) Not on file 04/18/2024 Does your family worry about paying for your home or becoming homeless? (Household - for ages 0-17 years) Not on file 1 06/19/2023 Are you homeless or worried that you might be in the future? No 04/18/2024 Are you (or your family) cristóbal eless or worried that you might be in the future? (Household - for ages 0-17 years) Not on file Food Insecurity Answer Date Recorded Do you need food for this week? No 04/18/2024 Are you able to get enough f ood for your family? (Household - for ages 0-17 years) Not on file 04/18/2024 Does your family need food t his week? (Household - for ages 0-17 years) Not on file 04/18/2024 Do you always have enough fo od for your family? (Household - for ages 0-17 years) Not on file 04/18/2024 Sex and Gender Information Value Date Recorded Sex Assigned at Not on file Legal Sex Male 5:27 AM EST Gender Identity Not on file Sexual Orientation Not on file documented as of this encounter Functional Status * Are you deaf or do you have serious difficulty hearing? Answer Date of Assessment Author No 03/17/2024 6:46 PM Genoveva Vidal RN * Are you blind or do you have serious difficulty seeing, even when wearing glasses? Answer Date of Assessment Author No 03/17/2024 6:46 PM Genoveva Vidal RN * Do you have serious difficulty walking or climbing stairs? (5 years old or older) Answer Date of Assessment Author No 03/17/2024 6:46 PM EST Billheim, Genoveva, RN * Do you have difficulty dressing or bathing? (5 years old or older) Answer Date of Assessment Author No 03/17/2024 6:46 PM EST Genoveva Cardona RN * Because of a physical, mental, or emotional condition, do you have difficulty doing errands alone such as visiting a doctors office or shopping? (15 years old or older) Answer Date of Assessment Author No 03/17/2024 6:46 PM EST Genoveva Cardona RN documented as of this encounter Mental Status * Because of a physical, mental, or emotional condition, do you have serious difficulty concentrating, remembering, or making decisions? (5 years old or older) Answer Entry Date Author No 03/17/2024 6:46 PM EST Genoveva Cardona RN documented in this encounter Miscellaneous Notes * Telephone Encounter - Hitesh Worthy RN - 05/02/2024 1:[address] Dyson- change Benadryl pretreatment for all cycles from 50mg to 25mg. documented in this encounter Plan of Treatment Upcoming Encounters Date Type Department Care Team (Latest Contact Info) Description 05/02/2024 5:30 PM EST Anticoagulation Pharmacy, [address] [place] [id number] [place] [address] GARY (acute kidney injury) (HCC)*; Light chain (AL) amyloidosis (HCC) 05/09/2024 9:00 AM EST Pharmacy Pharmacy Hematology Oncology [facility] [address] [place] [address] [facility] Hem/Onc [address] [place] [address] 05/20/2024 6:20 PM EST Office Visit Family Medicine [address] [place] [phone] Rahul Tucker MD [address] [place] [address] [place] [address] 07/17/2024 11:15 AM EDT Procedure Only Urology, [facility] [address] [place] [address] Duglas Tadeo MD [address] [place] [id number] Scheduled Procedures Name Priority Associated Diagnoses Date/Ti me ESOPHAGOGASTRODUODENOSCOPY ( EGD), FLEXIBLE, TRANSORAL, DIAGNOSTIC Recall Cirrhosis (HCC) Esophageal varices (HCC) Health Maintenance Due Date Last Done Comments COVID-19 Vaccine (#1) 1955 Hepatitis B Vaccine (1 of 3 - Risk 3-dose series) 2009 Zoster Vaccines (1 of 2) 04/01/2013 02/04/2013, 12/31 Adult Wellness Visit 2015 DTap/Tdap Vaccines (2 - Td or Tdap) 11/16/2021 11/17/2011 Influenza Vaccine (FLU shot) (#1) 2023 02/15/2022, 02/26/2021, 02/28/2020, Additional history exists Depression Screening 04/18/2025 04/18/2024 Colonoscopy Discontinued 06/23/2020, 06/03/2015 Colorectal Cancer Screening Discontinued Pneumococcal Vaccine: 50+ Years Completed 02/15/2022, 05/18/2020, 05/19/2016, Additional history exists Albumin/Creatinine Ratio Discontinued 024, 07/26/2022, 03/01/2019 Cologuard Discontinued Fecal Occult Blood Test Discontinued HPV (Gardasil) Vaccine Aged Out No lo nger eligible based on patient's age to complete this topic MENINGOCOCCAL (MENACTRA/MENVEO) Aged Out No longer eligible based on patient's age to complete this topic Sigmoidoscopy Discontinued documented as of this encounter Medical Devices Not on filedocumented as of this encounter Advance Directives * Full Code (Latest Code Status on File) Date Activated Date Inactivated Comments 03/17/2024 7:37 PM 03/29/2024 7:58 PM This order reflects the patients wishes and were consensually agreed upon. Question Answer Comments Discussion of Advance Directives occurred with: Patient Care Teams International Student Counselor Relationship Specialty Start Date End Date Rahul Tucker MD [address] [place] [address] [place] [address] PCP - General Family Medicine 08/03/18 documented as of this encounter
--- OUTSIDE RECORDS SUMMARY | 2024-05-05 16:42 | External Medical Summary | Summary of Care ---
Author Name Unknown Organization [facility] Address [address] [facility] [address] Phone [phone] Care Team Providers Care Cardiothoracic Surgeon Name Role Phone Rahul Tucker MD Primary Care Provide r Encounter Details Date Type Department Care Team (Late st Contact Info) Description 04/25/2024 Orders Only Hematology/Oncology [facility] [place] [address] [facility] [place] [phone] Brian Dyson MD [address] [facility] [place] [address] Allergies Active Allergy Reactions Criticality Noted Date [...] day (morning, before bedtime). 238 g 03/29/20 24 Active Sennosides-Docu sate Sodium 8.6-50 MG Oral [...] 1 capsule in afternoon. 04/22/20 24 Active documented as of this encounter [...] (Prevnar) 06/17/2014 Pneumococcal Conjugate Vacci ne, 20-valent ([id number]) 02/15/2022 Pneumococcal Polysaccharide PPV23 (Pneumovax) 05/19/2016 Seasonal [...] No 04/18/2024 Does the household have a [facility] source of income? (Household - for ages [...] Genoveva Vidal RN * Do you have difficulty dressing or bathing? (5 years old or older) Answer Date of Assessment Author No 03/17/2024 6:46 PM Genoveva Vidal RN * Because of a physical, mental, or emotional condition, do you have difficulty doing errands alone such as visiting a doctors office or shopping? (15 years old or older) Answer Date of Assessment Author No 03/17/2024 6:46 PM Genoveva Vidal RN documented as of this encounter Mental Status * Because of a physical, mental, or emotional condition, do you have serious difficulty concentrating, remembering, or making decisions? (5 years old or older) Answer Entry Date Author No 03/17/2024 6:46 PM Genoveva Vidal RN documented in this encounter Plan of Treatment Upcoming Encounters Date Type Department Care Team (Latest Contact Info) Description 05/02/2024 5:30 PM EST Anticoagulation Pharmacy, [address] [place] [address] [place] [address] GARY (acute kidney injury) (HCC)*; Light chain (AL) amyloidosis (HCC) 05/09/2024 9:00 AM EST Pharmacy Pharmacy Hematology Oncology [facility] [address] [place] [address] [facility] Hem/Onc [facility] [place] [address] 05/20/2024 6:20 PM EST Office Visit Family Medicine [address] [place] [phone] Rahul Tucker MD [address] [place] [address] [place] [address] 07/17/2024 11:15 AM EDT Procedure Only Urology, [facility] [address] [facility] [place] [address] Duglas Tadeo MD [address] [place] [address] [place] [id number] Scheduled Procedures Name Priority Associated Diagnoses Date/Ti [...] Advance Directives occurred with: Patient Care Teams Cardiothoracic Surgeon Relationship Specialty Start Date End Date Rahul Tucker MD [address] [place] [address] [place] [address] PCP - General Family Medicine 08/03/18 documented as of this encounter
--- OUTSIDE RECORDS SUMMARY | 2024-05-05 16:42 | External Medical Summary | Summary of Care ---
Author Name Unknown Organization [facility] Address [address] [place] [address] Phone [phone] Care Team Providers Care Roof Fixer Name Role Phone Rahul Tucker MD Primary Care Provide r Reason for Visit * Reason Comments Chemotherapy C1/D1 - DaraVRD * Episode Based Medications (Routine) - Authorized Specialty Diagnoses / Procedures Referred By David t Referred To Contact Diagnoses Light chain (AL) amyloidosis (HCC) Procedures SD DARATUMUMAB, HYALURONIDASE SD INJECTION, BORTEZOMIB, 0.1MG Brian Dyson MD [address] [place] [address] Phone: tel: fax: Hematology/Oncology Treatment, [address] [address] Phone: tel: fax: Referral ID Status Reason Start Date Expiration Date V isits Requested Visits Authorized [id number] Authorized 04/11/2024 04/30/2099 [id number] Encounter Details Date Type Department Care Team (Latest Contact Info) Description 05/02/2024 11:45 AM EST Hem/Onc Treatment Hematology/Oncolog y Treatment, [address] [address] Light chain (AL) amyloidosis (HCC)*; Encounter for antineoplastic chemotherapy Allergies Active Allergy Reactions Criticality Noted Date [...] Tablet before bedtime. 90 Tablet 5 03/29/20 24 Active Additional Information [...] (Prevnar) 06/17/2014 Pneumococcal Conjugate Vacci ne, 20-valent ([id number]) 02/15/2022 Pneumococcal Polysaccharide PPV23 (Pneumovax) 05/19/2016 Seasonal [...] No 04/18/2024 Does the household have a re gular source of income? (Household - for ages [...] Sign Reading Time Taken Comments Blood Pressure 90/53 05/02/2024 11:37 AM EST baseline Pulse 64 05/02/2024 11:37 AM EST Temperature 36.5 C (97.7 F) 05/02/2024 1 1:37 AM EST Respiratory Rate 18 05/02/2024 11:3 7 AM EST Oxygen Saturation 94% 05/02/2024 11: 37 AM EST Inhaled Oxygen Concentration - - Weight 87.5 kg (192 lb 14.4 oz) 025 11:37 AM EST Height - - Body Mass Index 27.68 03/17/2024 6:46 PM EST documented in this encounter Functional Status * Are you deaf or do you have serious difficulty hearing? Answer Date of Assessment Author No 03/17/2024 6:46 PM EST Genoveva Cardona RN * Are you blind or do you have serious difficulty seeing, even when wearing glasses? Answer Date of Assessment Author No 03/17/2024 6:46 PM EST Genoveva Cardona RN * Do you have serious difficulty walking or climbing stairs? (5 years old or older) Answer Date of Assessment Author No 03/17/2024 6:46 PM EST Genoveva Cardona RN * Do you have difficulty dressing [...] Genoveva Vidal RN documented in this encounter Nursing Notes * Kavita Andrade RN - 05/02/2024 5:05 PM EST Goals: Patient will remain free from injury. Possible barriers to meeting goals: L AKA, use of wheelchair, low BP, dizziness on occaison Stability of the patient: Moderately stable - low risk of patient condition declining or worsening Summary regarding today's goals: Met: pt remained free of harm today Patient tolerated treatment well without any acute issues or problems. Injections given and patientstayed for 4 hour observation period. No issues. Background fluid ran at 10 ml/hr d/t renal function and on HD. Patient left facility in stable condition, in wheelchair, with , and denied any further needs. * Kavita Andrade RN - 05/02/2024 4:57 PM EST Chair 6. IV inserted. Labs reviewed with Dr. Dyson - sravan for tx today. Cr 4.3 - gets HD MWF, getting tomorrow. Overall feeling no different. Alk phos 1027. Okay to tx per Dr. Dyson. Patient here today with . Patient presents today for first cycle of chemotherapy. Patient was educated about establishing IV access, giving premeds, taking PRN home medications, process of getting medication from pharmacy, layout of treatment room, use of call costa, etc. Patient communicated understanding and denied any further questions, concerns, needs. Patient has L AKA and uses wheelchair, weight obtained with wheelchair weight subtracted from actual weight. Patient is ordered 50 mg IVP Benadryl. Since patient has hypotension, age is 74 yo, and also took Oxycodone before coming today and it fatigued, will only give 25 mg IVP Benadryl before treatments - reviewed and ordered by Dr. Dyson Chemotherapy/Immunotherapy agents: VELCADE and DARZALEX, plus Oral Cytoxan Consent for chemotherapy drug treatment complete, dated, and signed? yes, date - 04/10/2024 Treatment lab parameters met? Yes Has treatment weight changed > than 10%? No Treatment preauthorized? Yes VITALS Filed Vitals: 05/02/24 1137 BP: 90/53 Pulse: 64 Resp: 18 Temp: 36.5 C (97.7 F) TempSrc: Tympanic SpO2: 94% Weight: 87.5 kg (192 lb 14.4 oz) BP Readings from Last 2 Encounters: 05/02/24 90/53 04/25/24 68/44 Pulse Readings from Last 2 Encounters: 05/02/24 64 04/25/24 78 Resp Readings from Last 2 Encounters: 05/02/24 18 03/29/24 16 SpO2 Readings from Last 2 Encounters: 05/02/24 94% 04/25/24 94% Temp Readings from Last 2 Encounters: 05/02/24 36.5 C (97.7 F) (Tympanic) 04/25/24 36.9 C (98.4 F) (Tympanic) Urine protein: N/A Patient education completed for treatment? Yes Blood transfusion consent signed and complete? NA Return appointment scheduled? Yes Patient had provider visit today? No - If no provider visit must complete Pretreatment Assessment Functional Status: Functional status at today's visit: Ambulatory and capable of all selfcare but unable to carry out any work activities. Up and about more than 50% of waking hours The drug name, dose, infusion volume, rate and route of administration, expiration date and time, appearance and physical integrity of the drug and rate set on the pump and sequencing of drug administration (as applicable) were verified by me and second sign-in RN. Patient was assessed for symptoms or adverse side effects during treatment. Patient Education: Patient instructed on use of heat and massage functions where applicable. Patient shown how to operate the heat function of the chair and to alert nursing staff if the chair feels too warm. Patient instructed on the risk of potential mckeon while using the heat function. PRE-TREATMENT ASSESSMENT: NEURO: numbness or tingling: L stump, off and on, previously was painful but now more numb at the site, fatigue:ongoing and stable at this time, has not had tx yet, and OTHER: L AKA as of March 2024 CV/RESP: shortness of breath: d/t ascites GI/: OTHER: ascites present, has not been drained d/t hypotension, has a alcaraz catheter present OTHER: denies any additional symptoms PAIN: 0 no pain at this time, took 5 mg Oxycodone before coming today and states his L AKA stump only feels numb Safety and Risk for Injury Patient will remain free from injury. Ensure appropriate safety devices are available. Provide and maintain safe environment. documented in this encounter Plan of Treatment Upcoming Encounters Date Type Department Care Team (Latest Contact Info) Description 05/02/2024 5:30 PM EST Anticoagulation Pharmacy, [address] [place] [address] [place] [address] Anticoagulation management encounter*; GARY (acute kidney injury) (HCC); Light chain (AL) amyloidosis (HCC) 05/06/2024 5:40 PM EST Anticoagulation Pharmacy, [address] [place] [address] [place] [address] 05/09/2024 9:00 AM EST Pharmacy Pharmacy Hematology Oncology [address] [address] [facility] Hem/Onc [facility] [place] [address] 05/09/2024 11:40 AM EST Laboratory Laboratory Scenery [facility] [place] [address] [place] [phone] [place], Lab Scenery [address] [place] [address] 05/09/2024 12:45 PM EST Hem/Onc Treatment Hematology/Oncolog y Treatment, [place] [address] [place] [phone] Sh[place], Chair 7 Hem Onc Scenery [address] [place] [address] 05/16/2024 10:00 AM EST Laboratory Laboratory [address] [place] [address] [place] [phone] [place], Lab Scenery [address] [place] [address] 05/16/2024 11:00 AM EST Hem/Onc Treatment Hematology/Oncolog y Treatment, [place] [address] [place], [place] [phone] Shima, Chair 7 Hem Onc Scenery [address] [place], [place] [address] 05/20/2024 6:20 PM EST Office Visit [address] [place] [phone] Rahul Tucker MD [address] [place] [address] [place] [address] 05/23/2024 10:00 AM EST Laboratory Laboratory [facility] [place] [address] [place], [place] [phone] [place], Lab Scenery [address] [place], [place] [address] 05/23/2024 11:00 AM EST Hem/Onc Treatment Hematology/Oncolog y Treatment, [place] [facility] [place] [phone] Shima, Chair 11 Hem Onc Scenery [address] [place], [place] [address] 05/30/2024 10:00 AM EST Laboratory Laboratory [facility] [place] [address] [place], [place] [phone] [place], Lab Scenery [address] [place], [place] [address] 05/30/2024 11:00 AM EST Office Visit Hematology/Oncolog y Scenery [place] [address] [place], [place] [phone] Rebeca Aguillon CRNP [address] [facility] [place] [address] 05/30/2024 11:30 AM EST Hem/Onc Treatment Hematology/Oncolog y Treatment, [place] [address] [place] [address] Shima, Chair 8 Hem Onc Scenery [address] [place] [address] 07/17/2024 11:15 AM EDT Procedure Only Urology, [facility], [place] [address] [place] [address] Duglas Tadeo MD [address] [place] [address] Scheduled Procedures Name Priority Associated Diagnoses Date/Ti [...] as of this encounter Visit Diagnoses Diagnosis Light chain (AL) amyloidosis (HCC)- Primary Encounter for antineoplastic chemotherapy Anticoagulation management encounter- Primary Encounter for therapeutic drug monitoring GARY (acute kidney injury) (HCC) Acute kidney failure, unspecified Light chain (AL) amyloidosis (HCC) documented in this encounter Administered Medications Active Administered Medications - up to 3 most recent administrations Medication Order MAR Action Action Date Dose Rate Site diphenhydrAMINE (Benadryl) inj 50 mg 50 mg, IV Push, ONCE PRN Other, Hypersensitivity Reaction, Starting on Mon05/02/24 at 1210, Until Mon05/03/24 at 1209, For 24 hoursIndications:Light chain (AL) amyloidosis (HCC) EPINEPHrine 1 MG/ML inj 0.3 mg 0.3 mg, Intramuscular, ONCE PRN Other, Hypersensitivity Reaction or Anaphylaxis, Starting on Mon05/02/24 at 1210, Until Mon05/03/24 at 1209, For 24 hoursIndications:Light chain (AL) amyloidosis (HCC) Hydrocortisone Sod Suc (PF) (Solu-Cortef) inj 100 mg 100 mg, IV Push, ONCE PRN Other, Hypersensitivity Reaction, Starting on Mon05/02/24 at 1210, Until Mon05/03/24 at 1209, For 24 hoursIndications:Light chain (AL) amyloidosis (HCC) meperidine (Demerol) 25 MG/ML inj 25 mg 25 mg, Intramuscular, ONCE PRN Shivering, Chills/Rigors from acute infusion reaction, Starting on Mon05/02/24 at 1210, Until Mon05/03/24 at 1209, For 24 hoursIndications:Light chain (AL) amyloidosis (HCC) meperidine (Demerol) 25 MG/ML inj 25 mg 25 mg, IV Push, ONCE PRN Shivering, Starting on Mon05/02/24 at 1210, Until DiscontinuedIndications:Light chain (AL) amyloidosis (HCC) NSS infusion Intravenous, at 50 mL/hr, PRN, Starting on Mon05/02/24 at 1315, Until Discontinued, Maintenance lineIndications:Light chain (AL) amyloidosis (HCC) Rate Change 05/02/2024 1:11 PM EST 10 mL/hr Start Infusion 05/02/2024 12:15 PM EST 50 mL/hr oxygen GAS Inhalation, OXYGEN, First dose on Mon05/02/24 at 1600, Until Discontinued, Device/Managed by: Low Flow Device, Goal SPO2 (%): 91-95, Starting Device: Nasal Cannula, Initial Flow Rate (LPM): 2, Lowest Support: Nasal Cannula: Flow 0-6 LPM. Titrate up/down by 1 LPM., Higher Support: Non-Rebreather (NRB) Mask: Minimum of 10 LPM. Titrate to maintain bag inflation., Titration Interval: Q2 minutes and as needed., Notify Provider: For sudden DECREASE in resting SPO2 to less than 85% and when escalating delivery device., Wean patient off Oxygen when the oxygen saturation is greater than or equal to 93%Indications:Light chain (AL) amyloidosis (HCC) Inactive Administered Medications - up to 3 most recent administrations Medication Order MAR Action Action Date Dose Rate Site Acetaminophen (Tylenol) tab 650 mg 650 mg, Oral, ONCE, On Sabrina 05/02/24 at 1245, For 1 dose, Maximum of 4 grams (4000 mg) per day.Indications:Light chain (AL) amyloidosis (HCC) Given 05/02/2024 12:27 PM EST 650 mg Bortezomib (Velcade) 2.5 mg/mL subQ inj 2.75 mg 2.75 mg (rounded from 2.821 mg = 1.3 mg/m2 2.17 m2 Treatment Plan BSA from Recorded weight), Subcutaneous, ONCE, On Sabrina 05/02/24 at 1345, For 1 dose, Administer subcutaneously in thigh or abdomen-rotate siteIndications:Light chain (AL) amyloidosis (HCC) Given 05/02/2024 12:59 PM EST 2.75 mg Abdomen Right Lower Daratumumab-hyaluronida se-fij (Darzalex Faspro) 1800 mg-95009 units/ 15 ml subcut inj 15 mL, Subcutaneous, ONCE, On Sabrina 05/02/24 at 1415, For 1 dose, Inject subcutanteously into abdomen over 3 to 5 minutesIndications:Ligh t chain (AL) amyloidosis (HCC) Given 05/02/2024 12:59 PM EST 15 mL Abdomen Left Lower dexamethasone sodium phosphate 20 mg in NSS 50 mL ivpb 20 mg, IV Piggyback, ONCE, On Sabrina 05/02/24 at 1315, For 1 dose, PROTECT FROM LIGHT Infuse over 30 minutes!Indications:Lig ht chain (AL) amyloidosis (HCC) Start Infusion 05/02/2024 12:17 PM EST 20 mg 108 mL/hr diphenhydrAMINE (Benadryl) inj 50 mg 50 mg, IV Push, ONCE, On Sabrina 05/02/24 at 1315, For 1 doseIndications:Light chain (AL) amyloidosis (HCC) Given 05/02/2024 12:26 PM EST 25 mg Famotidine (Pepcid) tab 20 mg 20 mg, Oral, ONCE, On Sabrina 05/02/24 at 1315, For 1 doseIndications:Light chain (AL) amyloidosis (HCC) Given 05/02/2024 12:27 PM EST 20 mg documented in this encounter Advance Directives * Full Code (Latest Code Status on File) Date Activated Date Inactivated Comments 03/17/2024 7:37 PM 03/29/2024 7:58 PM This order reflects the patients wishes and were consensually agreed upon. Question Answer Comments Discussion of Advance Directives occurred with: Patient Care Teams Roof Fixer Relationship Specialty Start Date End Date Rahul Tucker MD [address] [place] [address] [place] [address] PCP - General Family Medicine 08/03/18 documented as of this encounter
--- OUTSIDE RECORDS SUMMARY | 2024-05-05 16:42 | External Medical Summary | Summary of Care ---
Author Name Unknown Organization [facility] Address [address] [place] [facility] [place] [address] Phone [phone] Care Team Providers Care Mat Repairer Name Role Phone Rahul Tucker MD Primary Care Provide r Reason for Visit * Reason Comments Dosage Adjustment Via Phone (anticoag Cl inic) Encounter Details Date Type Department Care Team (Latest Contact Info) Description 05/02/2024 5:30 PM [facility] Anticoagulation Pharmacy, [address] [place] [address] [place] [address] Anticoagulation management encounter*; GARY (acute kidney injury) (HCC); Light chain (AL) amyloidosis ([facility]) Allergies Active Allergy Reactions Criticality Noted Date [...] and 30 mL before bedtime. 1920 mL 03/29/20 24 025 Active Additional Information Patient [...] Capsule 5 4 11:58 AM EST 04/18/20 Active Warfarin Sodium 5 MG Oral Tablet [...] (Prevnar) 06/17/2014 Pneumococcal Conjugate Vacci ne, 20-valent ([id number]) 02/15/2022 Pneumococcal Polysaccharide PPV23 (Pneumovax) 05/19/2016 Seasonal [...] Genoveva Vidal RN documented in this encounter Progress Notes * Elli Tate CPhT - 05/02/2024 2:23 PM EST Caller's name: Bina Preferred call back number(OFFICE NUMBER FOR ): [phone] Reason for call: Pts spouse returning Brittney's call. Please return her call. Thank you, Elli Tate Conference Director Centralized Clinical Pharmacy Services 05/02/2024,2:23 PM * Brittney Villela Kelly, [facility] - 05/02/2024 11:30 AM EST Medication Therapy Disease Management - Anticoagulation Patient: Dre Vera | : 1950 Subjective Contacts Contact Date/Time Type Contact Phone/Fax 05/02/2024 12:33 PM EST Phone (Outgoing) Dre Vera V (Self) [phone] (M) Left Message 05/02/2024 02:22 PM EST Phone (Incoming) Bina Vera (Emergency Contact) [phone] (M) 05/02/2024 03:28 PM EST Phone (Outgoing) Bina Vera (Emergency Contact) [phone] (M) Spoke to Bina Patient-Reported Symptoms: Patient Findings Negatives: Signs/symptoms of thrombosis, Signs/symptoms of bleeding, Change in health, Change in alcohol use, Change in activity, Upcoming invasive procedure, Missed doses, Extra doses, Change in medications, Change in diet/appetite, Bruising Objective Current Warfarin Dose As of 05/02/2024 Warfarin maintenance plan: No maintenance plan INR Result As of 05/02/2024 INR goal: 2.0-3.0 INR used for dosin.5 (05/02/2024) Assessment & Plan Warfarin Plan As of 05/02/2024 Full warfarin instructions: 05/02: 2.5 mg; 05/03: 2.5 mg; 05/04: 5 mg; 05/05: 5 mg Next INR check: 05/06/2024 Repeat PT/INR in 4 day(s) Weekly dose: establishing Additional Dosing Information: Next INR with [facility] to be obtained on 05/06. Will need updated/new orders at that point for continued management. Description Pt would like to consider a home INR machine -- advised can try to submit paperwork after ~1 month of therapy (per most insurance requirements) Can use [facility] for INR draws (fax: [phone]) I spent a total of 10-19 minutes (exact time 10 mins) on the date of service in preparation, delivery, and documentation of the care provided to Dre Vera excluding any time spent in the performance of separately billed services or time spent by another provider/QHP. Brittney Villela [facility] Clinical Pharmacist 05/02/2024, 11:31 AM documented in this encounter Plan of Treatment Upcoming Encounters Date Type Department Care Team (Late st Contact Info) Description 05/06/2024 5:40 PM EST Anticoagulation Pharmacy, [address] [place] [address] [place] [address] 05/09/2024 9:00 AM EST Pharmacy Pharmacy Hematology Oncology [address] [place] [address] [facility] Hem/Onc [address] [place] [address] 05/20/2024 6:20 PM EST Office Visit Family [address] [place] [phone] Rahul Tucker MD [address] [place] [address] [place] [address] 07/17/2024 11:15 AM EDT Procedure Only Urology, [facility] [address] [place] [address] Duglas Tadeo MD [address] [place] [address] Scheduled Procedures Name Priority Associated Diagnoses Date/Ti [...] as of this encounter Visit Diagnoses Diagnosis Anticoagulation management encounter- Primary Encounter for therapeutic drug monitoring GARY (acute kidney injury) (HCC) Acute kidney failure, unspecified Light chain (AL) amyloidosis (HCC) documented in this encounter Advance Directives * Full Code (Latest Code Status on File) Date Activated Date Inactivated Comments 03/17/2024 7:37 PM 03/29/2024 7:58 PM This order reflects the patients wishes and were consensually agreed upon. Question Answer Comments Discussion of Advance Directives occurred with: Patient Care Teams Mat Repairer Relationship Specialty Start Date End Date Rahul Tucker MD [address] [place] [address] [place] [address] PCP - General Family Medicine 08/03/18 documented as of this encounter"
--- OUTSIDE RECORDS SUMMARY | 2024-05-05 16:43 | External Medical Summary | Summary of Care ---
Author Name Unknown Organization [facility] Address [address] [place] [address] Phone [phone] Care Team Providers Care Supervisor Force Adjustment Name Role Phone Rahul Tucker MD Primary Care Provide r Reason for Visit * Reason Comments Outpatient Testing Encounter Details Date Type Department Care Team (Late st Contact Info) Description 05/02/2024 10:40 AM EST Laboratory Laboratory Scenery [place] [address] [place] [phone] [facility] Lab Scenery [address] [place] [address] Light chain (AL) amyloidosis ([facility]); GARY (acute kidney injury) ([facility]); Anticoagulation management encounter Allergies Active Allergy Reactions Criticality Noted Date [...] (morning, before bedtime). 60 Tablet 5 03/29/20 Active Additional Information Patient [...] 30 mL before bedtime. 1920 mL 03/29/20 025 Active Additional Information Patient not taking.Reported [...] (Prevnar) 06/17/2014 Pneumococcal Conjugate Vacci ne, 20-valent ([id number]) 02/15/2022 Pneumococcal Polysaccharide PPV23 (Pneumovax) 05/19/2016 Seasonal [...] 04/18/2024 Does the household have a re lar source of income? (Household - for ages [...] Assessment Author No 03/17/2024 6:46 PM Genoveva Vidal, YOHAN * Do you have serious difficulty walking [...] Team (Late st Contact Info) Description 05/02/2024 11:45 AM EST Hem/Onc Treatment Hematology/Oncology Treatment, [place] [address] [place] [facility] [place] [address] Arrived 05/02/2024 5:30 PM EST Anticoagulation Pharmacy, [address] [place] [address] [place] [address] 05/20/2024 6:20 PM EST Office Visit Family Medicine [address] [place] [address] Rahul Tucker MD [address] [place] [address] [place] [address] 07/17/2024 11:15 AM EDT Procedure Only Urology, [facility] [address] [place] [address] Duglas Tadeo MD [address] [place] [id number] Pending Results Name Type Priority Associated Diagnoses Date /Time CBC WITH WBC DIFFERENTIAL Lab STAT Light chain (AL) amyloidosis (HCC) 05/02/2024 10:51 AM EST COMPREHENSIVE METABOLIC PANEL Lab STAT Light chain (AL) amyloidosis (HCC) 05/02/2024 10:51 AM EST SERUM PROTEIN ELECTROPHORESIS REFLEX PROFILE Lab STAT Light chain (AL) amyloidosis (HCC) 05/02/2024 10:51 AM EST CBC Lab STAT Light chain (AL) amyloidosis (HCC) 05/02/2024 10:51 AM EST DIFFERENTIAL, AUTOMATED Lab STAT Light chain (AL) amyloidosis (HCC) 05/02/2024 10:51 AM EST Scheduled Procedures Name Priority Associated [...] Visit Diagnoses Diagnosis Light chain (AL) amyloidosis (HCC) GARY (acute kidney injury) (HCC) Acute kidney failure, unspecified Anticoagulation management encounter Encounter for therapeutic drug monitoring documented in this encounter Advance Directives * Full Code (Latest Code Status on File) Date Activated Date Inactivated Comments 03/17/2024 7:37 PM 03/29/2024 7:58 PM This order reflects the patients wishes and were consensually agreed upon. Question Answer Comments Discussion of Advance Directives occurred with: Patient Care Teams Supervisor Force Adjustment Relationship Specialty Start Date End Date Rahul Tucker MD [address] [place] [address] [place] [id number] PCP - General Family Medicine 08/03/18 documented as of this encounter
--- OUTSIDE RECORDS SUMMARY | 2024-05-05 16:43 | External Medical Summary | Summary of Care ---
Author Name Unknown Organization [facility] Address [address] [place] [address] Phone [phone] Care Team Providers Care Party Supply Specialist Name Role Phone Rahul Tucker MD Primary Care Provide r Reason for Visit * Reason Onset Date Comments Home Health 04/29/2024 Encounter Details Date Type Department Care Team (Late st Contact Info) Description 04/29/2024 Telephone Family Medicine [address] [phone] Rahul Tucker MD [address] [place] [address] [place] [address] Home Health Allergies Active Allergy Reactions Criticality Noted Date Comments Azithromycin Hives 12/10/2010 documented as of this encounter (statuses as of 04/29/2024) Medications Finasteride 5 MG Oral Tablet (Proscar) [...] Additional Information Patient not taking.Reported on 04/18/2024 Torsemide 20 MG Oral Tablet (Demadex) Take 2 Tablets by mouth in the morning. 60 Tablet 5 03/29/20 Active Additional Information Patient taking differently: 60 mgOral Daily(AM), Reported on 04/26/2024 Bisacodyl 5 MG Oral Tablet Delayed Release [...] morning. 30 Capsule 1 04/16/20 24 Active Midodrine HCl 10 MG Oral Tablet (Proamatine) Take 1 Tablet by mouth in the morning and 1 Tablet at noon and 1 Tablet in the evening. Active cycloPHOSphamid e 50 MG Oral Capsule [...] bedtime. 90 Capsule 3 04/26/20 24 Active documented as of this encounter (statuses as of 04/29/2024) Active Problems Problem Noted Date Diagnosed Date [...] as of this encounter (statuses as of 04/29/2024) Resolved Problems Problem Noted Date Diagnosed Date Resolved Date CKD (chronic kidney disease) stage 5, GFR less than 15 ml/min 03/28/2024 04/22/2024 Carpal tunnel syndrome 06/17/201402/08 Allergic rhinitis 06/17/2014 02/08/2018 Adjustment disorder with depressed mood 12/10/2013 07/20/2017 Eczema 06/22/2012 07/20/2017 Epileptic seizure 12/10/2010 08/16/2018 documented as of this encounter (statuses as of 04/29/2024) Immunizations Name Administration Dates Next Due Pneumococcal Conjugate Vacc, 13 Valent (Prevnar) 06/17/2014 Pneumococcal Conjugate Vacci ne, 20-valent ([id number]) 02/15/2022 Pneumococcal Polysaccharide PPV23 (Pneumovax) 05/19/2016 Seasonal [...] Genoveva Vidal RN documented in this encounter Miscellaneous Notes * Telephone Encounter - Silvia Louis RPh - 04/29/2024 9:31 AM EST Faxing order to request INR be drawn today, 04/29/24 if possible and then 05/06/24 --> pt is scheduled for labs already on 05/02/24 and will have INR drawn then. Silvia Louis, PharmD, BCACP Clinical Pharmacist Medication Therapy Disease Management 04/29/2024, 9:32 AM * Telephone Encounter - Sarah Beth Hodges LPN - 04/29/2024 9:19 AM EST [facility], to request [facility]R order to be faxed. There is a standing order in chart but needs it to have dates of draw to be on order. Per [facility] note today pt is to have INR done tomorrow. Please fax order with dates to have INR completed to [facility] FAX [phone] documented in this encounter Plan of Treatment Upcoming Encounters Date Type Department Care Team (Late st Contact Info) Description 04/30/2024 7:00 AM EST Anticoagulation Pharmacy, [address] [place] [address] [place] [address] 05/02/2024 9:00 AM EST Pharmacy Pharmacy Hematology Oncology [facility] [place] [address] [place] [address] [facility] Hem/Onc [address] [place] [address] 05/02/2024 10:40 AM EST Laboratory Laboratory [facility] [address] [place] [phone] [place] [address] [place] [address] 05/02/2024 11:45 AM EST [facility] [address] [place] [phone] 05/02/2024 5:30 PM EST Anticoagulation Pharmacy, [address] [place] [address] [place] [address] 05/20/2024 6:20 PM EST Office Visit Family Medicine [address] [place] [phone] Rahul Tucker MD [address] [place] [address] [place] [address] 07/17/2024 11:15 AM EDT Procedure Only Urology, [facility] [address] [facility] [place] [address] Duglas Tadeo MD [address] [place] [address] [...] Advance Directives occurred with: Patient Care Teams Party Supply Specialist Relationship Specialty Start Date End Date Rahul Tucker MD [address] [place] [address] [place] [address] PCP - General Family Medicine 08/03/18 documented as of this encounter
--- OUTSIDE RECORDS SUMMARY | 2024-05-05 16:43 | External Medical Summary ---
Author Name Unknown Address Unknown Organization K[facility] [address] [place] [address] Laboratory Report Ordering Provider Test Date Status YOLA CHURCH 05/02/2024 10:51:06 Final Observation Date Value Abnormality Reference (Units ) Status BUN 05/02/2024 10:51:06 58 Above high normal 6-20 (mg/dL) Final Creatinine 05/02/2024 10:51:06 4.3 Above high normal 0.6-1.2 (mg/dL) Final Glomerular filtration rate/1.73 sq M.predicted [Volume Rate/Area] in Serum, Plasma or Blood by Creatinine-based formula (CKD-EPI) 05/02/2024 10:51:06 13 Below low normal >=60 (mL/min) Final eGFR is calculated based on the CKD-EPI 2020 equation. Sodium 05/02/2024 10:51:06 140 135-146 (m mol/L) Final Potassium 05/02/2024 10:51:06 3.8 3.5-5.1 (m mol/L) Final Cl 05/02/2024 10:51:06 98 98-107 (mm ol/L) Final CO2 05/02/2024 10:51:06 28 22-32 (mmo l/L) Final Anion gap 05/02/2024 10:51:06 14 7-15 (mmol /L) Final Glucose 05/02/2024 10:51:06 137 Above high normal 70 -120 (mg/dL) Final Albumin 05/02/2024 10:51:06 1.7 Below low normal 3.8 -5.0 (g/dL) Final AST (Aspartate aminotransferase) 05/02/2024 10:51:06 53 Above high normal 10-50 (U/L) Final Alk Phos 05/02/2024 10:51:06 1027 Above high normal 35 -130 (U/L) Final Bilirubin, Total 05/02/2024 10:51:06 0.3 <=1 .2 (mg/dL) Final Calcium 05/02/2024 10:51:06 8.0 Below low normal 8.4 -10.2 (mg/dL) Final Protein 05/02/2024 10:51:06 6.2 6.0-8.3 (g /dL) Final ALT (Alanine aminotransferase) 05/02/2024 10:51:06 25 10-50 (U/L) Sarthak baez Performing Location [facility] [address] [place] [address]
--- OUTSIDE RECORDS SUMMARY | 2024-05-05 16:43 | External Medical Summary | Summary of Care ---
Author Name Unknown Organization [facility] Address [address] [place] [address] Phone [phone] Care Team Providers Care Administrative Specialist Name Role Phone Rahul Tucker MD Primary Care Provide r Reason for Visit * Reason Onset Date Comments Advice 04/26/2024 Encounter Details Date Type Department Care Team (Late st Contact Info) Description 04/26/2024 Telephone Family Medicine [address] [phone] Rahul Tucker MD [address] [place] [address] [place] [id number] Advice Allergies Active Allergy Reactions Criticality Noted Date [...] 1 capsule in afternoon. 04/22/20 24 Active oxyCODONE HCl 5 MG Oral Tablet (Oxy IR) Take 1 Tablet by mouth at bedtime as needed for Pain, Severe. 20 Tablet 04/30/20 24 Active Torsemide 20 MG Oral Tablet (Demadex) Take 2 Tablets by mouth in the morning. 60 Tablet 5 03/29/20 24 024 Discontin ued(Refil l) Midodrine HCl 10 MG Oral Tablet (Proamatine) Take 1 Tablet by mouth in the morning and 1 Tablet at noon and 1 Tablet in the evening. 024 Discontin ued(Refil l) documented as of this encounter (statuses as [...] (Prevnar) 06/17/2014 Pneumococcal Conjugate Vacci ne, 20-valent ([id number]) 02/15/2022 Pneumococcal Polysaccharide PPV23 (Pneumovax) 05/19/2016 Seasonal [...] encounter Miscellaneous Notes * Telephone Encounter - Cassie Posadas LPN - 05/02/2024 11:46 AM EST Rebecca LOPEZ already talked to pt's about this. * Telephone Encounter - Rahul Tucker MD - 04/30/2024 10:28 AM EST Would recommend he hold gabapentin today and tomorrow and then can resume at just the 100 mg three times a day. He was dizzy before the gabapentin increase as well due to his low blood pressure. * Telephone Encounter - Adry Lopez LPN - 04/30/2024 9:27 AM EST YOHAN Hidalgo from [facility] is calling to check on the status of pt being prescribed for pain. Made Gwen aware that PCP prescribed Oxycodone 5 mg. Per 04/27 Med Request Encounter- reported that the pt is experiencing side effects from Gabapentin (dizziness, drowsiness and extremity swelling) Reports that the pt yesterday canceled all of his appts due to being too weak. Pt told his that he is never going back to the ER, hospital or rehab. Pt did see OT yesterday. Gwen is going out to see the pt this morning. Please advise. * Telephone Encounter - Rahul Tucker MD - 04/30/2024 8:51 AM EST With the complexity of his medical problems, he will need specialists to prescribe some of his medications. 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 If the pain remains uncontrolled, we could then have him see pain management. * Telephone Encounter - Merry Uriostegui MD - 04/29/2024 3:[address] Tucker is out of the office this week. Discussed with Rebecca. Unfortunately, as I am not familiar with the patient, I would recommend an appointment before any sort of controlled pain meds could be done (and no guarantee that would be appropriate if they do come in). Can consider a referral to pain management as he may need detention pain meds if they'd prefer. I will leave this message as well for Dr Tucker's return if she feels otherwise. * Telephone Encounter - Darby Mayorga MD - 04/26/2024 4:38 PM EST Unfortunately in complex pt like him unlikely that one provider can cover all meds Defer to PCP and to surgery to address phantom leg pain; pls update pt/ * Telephone Encounter - Rebecca Kaba RN - 04/26/2024 11:25 AM EST Hello. Patient is still having pretty bad phantom leg pain despite increasing the gabapentin dose. Patientis still restless at night and still moans from the pain. They are requesting something for pain. Bina called the surgeons office and the surgeon is out until after the new year to see if they could give something for pain. She spoke with the nurse and the nurse suggests reaching out to PCP to request pain medication or get a referral for pain management. Patients is wondering if one doctor can start prescribing all of his medications. She is getting frustrated with having to go back and fourth. Made her aware that sometimes this is hard because different specialist manages different medications but she wanted to me reach out to Dr. Tucker and Dr. Leigh and see if they have any suggestions. Thank you! documented in this encounter Plan of Treatment Upcoming Encounters Date Type Department Care Team (Latest Contact Info) Description 05/02/2024 5:30 PM EST Anticoagulation Pharmacy, [address] [place] [address] [place] [address] GARY (acute kidney injury) (HCC)*; Light chain (AL) amyloidosis (HCC) 05/20/2024 6:20 PM EST Office Visit Family Medicine [address] [place] [phone] Rahul Tucker MD [address] [place] [address] [place] [address] 07/17/2024 11:15 AM EDT Procedure Only Urology, [facility] [address] [facility] [place] [address] Duglas Tadeo MD [address] [place] [address] [...] Advance Directives occurred with: Patient Care Teams Administrative Specialist Relationship Specialty Start Date End Date Rahul Tucker MD [address] [place] [address] [place] [address] PCP - General Family Medicine 08/03/18 documented as of this encounter
--- OUTSIDE RECORDS SUMMARY | 2024-05-05 16:43 | External Medical Summary ---
Author Name Unknown Address Unknown Organization K09:[facility] [place] [address] Laboratory Report Ordering Provider Test Date Status YOLA CHURCH 05/02/2024 10:51:06 Final Observation Date Value Abnormality Reference (Units ) Status SYNC LEUKOCYTES IN BLOOD BY AUTOMATED COUNT 05/02/2024 10:51:06 20.32 Above high normal 4.00-10.80 (K/uL) Final Neutrophils/100 leukocytes in Blood by Manual count 05/02/2024 10:51:06 89.0 Above high normal 40.0-75.0 (%) Final Lymphocytes/100 leukocytes in Blood by Manual count 05/02/2024 10:51:06 6.0 Below low normal 18.0-42.0 (%) Final Monocytes/100 leukocytes in Blood by Manual count 05/02/2024 10:51:06 5.0 1.0-11.0 (%) Final Neutrophils [#/volume] in Blood by Manual count 05/02/2024 10:51:06 18.08 Above high normal 1.80-7.70 (K/uL) Final Lymphocytes [#/volume] in Blood by Manual count 05/02/2024 10:51:06 1.22 1.00-4.80 (K/uL) Final Monocytes [#/volume] in Blood by Manual count 05/02/2024 10:51:06 1.02 0.00-1.10 (K/uL) Final Nucleated erythrocytes/100 leukocytes [Ratio] in Blood by Automated count 05/02/2024 10:51:06 Final Target cells [Presence] in Blood by Light microscopy 05/02/2024 10:51:06 Moderate Abnormal None Seen Final Performing Location [facility] [address]
--- OUTSIDE RECORDS SUMMARY | 2024-05-05 16:43 | External Medical Summary | Summary of Care ---
Author Name Unknown Organization [facility] [address] [facility] [address] Phone [phone] Care Team Providers Care Asphalt Smoother Name Role Phone Rahul Tucker MD Primary Care Provide r Reason for Visit * Reason Onset Date Comments Other 05/02/2024 Encounter Details Date Type Department Care Team (Late st Contact Info) Description 05/02/2024 Telephone Pharmacy, [address] [place] [address] [place] [address] Other Allergies Active Allergy Reactions Criticality Noted Date [...] (Prevnar) 06/17/2014 Pneumococcal Conjugate Vacci ne, 20-valent ([id number]) 02/15/2022 Pneumococcal Polysaccharide PPV23 (Pneumovax) 05/19/2016 Seasonal [...] encounter Miscellaneous Notes * Telephone Encounter - Brittney Villela RPh - 05/02/2024 12:34 PM EST Patient Phone Numbers Attempted to return call, no answer. Will continue to follow up in separate ACC encounter. Brittney Villela RP, PharmD Clinical Pharmacist - Investigations Chief Medication Therapy [facility] 05/02/2024, 12:34 PM Ph.[phone] * Telephone Encounter - Hattie Merchant CPhT - 05/02/2024 8:57 AM EST Caller's name: Bina Preferred call back number(OFFICE NUMBER FOR ): [phone] Reason for call: Patient's calling in to let [facility] Brittney know that patient had a quite a bit of seeping from his incision site this morning. Asking for return call to [phone]. Thank you, Hattie Merchant General Farm Manager [facility] ([facility]) 05/02/2024,8:58 AM documented in this encounter Plan of Treatment Upcoming Encounters Date Type Department Care Team (Latest Contact Info) Description 05/02/2024 5:30 PM EST Anticoagulation Pharmacy, [address] [place] [address] [place] [address] GARY (acute kidney injury) (HCC)*; Light chain (AL) amyloidosis (HCC) 05/20/2024 6:20 PM EST Office Visit Family Medicine [address] [place] [phone] Rahul Tucker MD [address] [place] [address] [place] [address] 07/17/2024 11:15 AM EDT Procedure Only Urology, [facility] [address] [facility] [place] [address] Duglas Tadeo MD [address] [place] [address] Scheduled Procedures Name Priority Associated Diagnoses Date/Ti [...] Advance Directives occurred with: Patient Care Teams Asphalt Smoother Relationship Specialty Start Date End Date Rahul Tucker MD [address] [place] [address] [place] [address] PCP - General Family Medicine 08/03/18 documented as of this encounter
--- OUTSIDE RECORDS SUMMARY | 2024-05-05 16:43 | External Medical Summary | Summary of Care ---
Author Name Unknown Organization [facility] [address] [facility] [address] Phone [phone] Care Team Providers Care Senior Gl Accountant Name Role Phone Rahul Tucker MD Primary Care Provide r Encounter Details Date Type Department Care Team (Late st Contact Info) Description 05/02/2024 Orders Only Hematology/Oncology [address] [place] [address] [facility] [place] [phone] Brian Dyson MD [address] [facility] [place] [address] Allergies Active Allergy Reactions Criticality Noted Date [...] (Prevnar) 06/17/2014 Pneumococcal Conjugate Vacci ne, 20-valent ([id number]) 02/15/2022 Pneumococcal Polysaccharide PPV23 (Pneumovax) 05/19/2016 Seasonal [...] of Assessment Author No 03/17/2024 6:46 PM Gneoveva Vidal RN * Are you blind or [...] (Latest Contact Info) Description 05/02/2024 5:30 PM [facility] Anticoagulation Pharmacy, [address] [place] [address] [place] [address] GARY (acute kidney injury) (HCC)*; Light chain (AL) amyloidosis (HCC) 05/09/2024 9:00 AM [facility] Pharmacy Pharmacy Hematology Oncology [facility] [address] [place] [address] [facility] Hem/Onc [address] [place] [address] 05/20/2024 6:20 PM EST Office Visit Family Medicine [address] [place] [phone] Rahul Tucker MD [address] [place] [address] [place] [address] 07/17/2024 11:15 AM EDT Procedure Only Urology, [address] [place] [address] Duglas Tadeo MD [address] [place] [address] Scheduled Procedures Name Priority Associated Diagnoses Date/Ti [...] Advance Directives occurred with: Patient Care Teams Senior Gl Accountant Relationship Specialty Start Date End Date Rahul Tucker MD [address] [place] [address] [place] [address] PCP - General Family Medicine 08/03/18 documented as of this encounter
--- OUTSIDE RECORDS SUMMARY | 2024-05-05 16:43 | External Medical Summary | Summary of Care ---
Author Name Unknown Organization [facility] Address [address] [place] [facility] [place] [address] Phone [phone] Care Team Providers Care Optoelectronic Technician Name Role Phone Rahul Tucker MD Primary Care Provide r Reason for Visit * Reason Comments Dosage Adjustment Via Phone (anticoag Cl inic) Encounter Details Date Type Department Care Team (Latest Contact Info) Description 04/30/2024 7:00 AM EST Anticoagulation Pharmacy, [address] [place] [address] [place] [address] Anticoagulation management encounter*; GARY (acute kidney injury) (HCC); Light chain (AL) amyloidosis ([facility]) Allergies Active Allergy Reactions Criticality Noted Date Comments Azithromycin Hives 12/10/2010 documented as of this encounter (statuses as of 04/30/2024) Medications Finasteride 5 MG Oral Tablet (Proscar) [...] as of this encounter (statuses as of 04/30/2024) Active Problems Problem Noted Date Diagnosed Date [...] as of this encounter (statuses as of 04/30/2024) Resolved Problems Problem Noted Date Diagnosed Date Resolved Date CKD (chronic kidney disease) stage 5, GFR less than 15 ml/min 03/28/2024 04/22/2024 Carpal tunnel syndrome 06/17/201402/08 Allergic rhinitis 06/17/2014 02/08/2018 Adjustment disorder with depressed mood 12/10/2013 07/20/2017 Eczema 06/22/2012 07/20/2017 Epileptic seizure 12/10/2010 08/16/2018 documented as of this encounter (statuses as of 04/30/2024) Immunizations Name Administration Dates Next Due Pneumococcal Conjugate Vacc, 13 Valent (Prevnar) 06/17/2014 Pneumococcal Conjugate Vacci ne, 20-valent ([id number]) 02/15/2022 Pneumococcal Polysaccharide PPV23 (Pneumovax) 05/19/2016 Seasonal [...] documented in this encounter Progress Notes * Johanne Myers applied biology professor - 04/30/2024 11:06 AM EST Caller's name: Gwen Ortiz call back number(OFFICE NUMBER FOR ): [phone] Reason for call: nursing facility, [facility], calling with INR results. Result is 1.8 which was drawn on 04/30. Patient is not being discharged. Call with dosing instructions. Johanne Myers Industrial Truck Operator [facility] Clinical Pharmacy Services [address] [place] [address] [address] [place] [phone] 04/30/2024,11:06 AM * Brittney Villela [facility] - 04/30/2024 9:37 AM EST Images from the original note were not included. Medication Therapy Disease Management - Anticoagulation Patient: Dre Hitchcock Jody | : 1950 Subjective Contacts Contact Date/Time Type Contact Phone/Fax 04/30/2024 08:49 AM EST Phone (Outgoing) Dre Vera V (Self) [phone] (M) spoke to Bina 04/30/2024 11:05 AM EST Phone (Incoming) Gwen Mari [phone] 04/30/2024 11:21 AM EST Phone (Outgoing) Bina Vera (Emergency Contact) [phone] (M) Spoke to spouse Patient-Reported Symptoms: Patient Findings Negatives: Signs/symptoms of thrombosis, Signs/symptoms of bleeding, Change in health, Change in alcohol use, Change in activity, Upcoming invasive procedure, Missed doses, Extra doses, Change in medications, Change in diet/appetite, Bruising Objective Current Warfarin Dose As of 04/30/2024 Warfarin maintenance plan: No maintenance plan INR Result As of 04/30/2024 INR goal: 2.0-3.0 INR used for dosin.8 (04/30/2024) Assessment & Plan Warfarin Plan As of 04/30/2024 Full warfarin instructions: 04/30: 7.5 mg; 05/01: 5 mg Next INR check: 05/02/2024 Repeat PT/INR in 2 day(s) Weekly dose: establishing Additional Dosing Information: 9:39 AM - Called and spoke with Sammyctjaneen , confirmed they are planning to obtain INR this AM. Next INR with [facility] to be obtained on 05/06. Will need updated/new orders at that point for continued management. 11:18 AM - Spoke to spouse. Made aware of INR to be obtained with labs on 05/02, then [facility] toobtain on 05/06. Provided dosing, instructed to contact clinic with any additional questions or concerns. Description Pt would like to consider a home INR machine -- advised can try to submit paperwork after ~1 month of therapy (per most insurance requirements) Can use [facility] for INR draws (fax: [phone]) I spent a total of 20-29 minutes (exact time 20 mins) on the date of service in preparation, delivery, and documentation of the care provided to Dre Vera excluding any time spent in the performance of separately billed services or time spent by another provider/QHP. Brittney Villela RPh Clinical Pharmacist 04/30/2024, 9:39 AM * Vaishnavi Boo, applied biology professor - 04/30/2024 8:50 AM EST Called to remind pt they are due for INR labs. answered and stated she will not be taking him for INR draws. He had an episode yesterday and she didn't want to take him plus he does dialysis andits too much to be taking him out all the time for labs. She stated [facility] will be coming fora visit today at 10 and she would like for them to draw it weekly. Please advise documented in this encounter Plan of Treatment Upcoming Encounters Date Type Department Care Team (Late st Contact Info) Description 05/02/2024 9:00 AM EST Pharmacy Pharmacy Hematology Oncology [address] [address] [facility] Hem/Onc [facility] [place] [address] 05/02/2024 10:40 AM EST Laboratory Laboratory Scenery [facility] [address] [place] [phone] [place], Lab Scenery [address] [facility] [place] [address] 05/02/2024 11:45 AM EST Hem/Onc Treatment Hematology/Oncology Treatment, [place] [address] [facility] [phone] 05/02/2024 5:30 PM EST Anticoagulation Pharmacy, [address] [place] [address] [place] [address] 05/20/2024 6:20 PM EST Office Visit Family Medicine [address] [place] [phone] Rahul Tucker MD [address] [place] [address] [place] [address] 07/17/2024 11:15 AM EDT Procedure Only Urology, [facility] [address] [facility] [place] [id number] Duglas Tadeo MD [address] [place] [address] Scheduled Procedures Name Priority Associated [...] Procedure Name Priority Date/Time Associated Diagnosis Comments OUTSIDE LAB-PT/INR Routine 04/30/2024 documented in this encounter Results * OUTSIDE LAB-PT/INR (04/30/2024) INR-OUTSIDE LAB 1.8 04/30/2024 us History Per Patient LABORATORY Final Result documented in this encounter Visit Diagnoses Diagnosis Anticoagulation management [...] Advance Directives occurred with: Patient Care Teams Optoelectronic Technician Relationship Specialty Start Date End Date Rahul Tucker MD [address] [place] [address] [place] [address] PCP - General Family Medicine 08/03/18 documented as of this encounter"
--- OUTSIDE RECORDS SUMMARY | 2024-05-05 16:43 | External Medical Summary ---
Author Name Unknown Address Unknown Organization K01:LABORATORY [facility] - [address] [facility] [address] Laboratory Report Ordering Provider Test Date Status YOLA CHURCH 05/02/2024 10:51:06 Final Observation Date Value Abnormality Reference (Units) Status PARAPROTEIN NORMAL/ABNORMAL 05/02/2024 10:51:06 Abnormal Abnormal Normal Final Protein 05/02/2024 10:51:06 5.7 Below low normal 6.0-8.3 (g/dL) Final Albumin/Protein.total [Pure mass fraction] in Serum or Plasma by Electrophoresis 05/02/2024 10:51:06 1.39 Below low normal 3.30-4.40 (g/dL) Final Alpha 1 globulin/Protein.tota l [Pure mass fraction] in Serum or Plasma by Electrophoresis 05/02/2024 10:51:06 0.27 0.10-0.30 (g/dL) Final Alpha 2 globulin/Protein.tota l [Pure mass fraction] in Serum or Plasma by Electrophoresis 05/02/2024 10:51:06 0.96 0.60-1.00 (g/dL) Final Beta globulin/Protein.tota l [Pure mass fraction] in Serum or Plasma by Electrophoresis 05/02/2024 10:51:06 1.06 0.80-1.30 (g/dL) Final Gamma globulin/Protein.tota l [Pure mass fraction] in Serum or Plasma by Electrophoresis 05/02/2024 10:51:06 2.02 Above high normal 0.70-1.70 (g/dL) Final Monoclonal protein 05/02/2024 10:51:06 1.61 (g/dL) Final Protein Fractions [Interpretation] in Serum or Plasma by Electrophoresis Narrative 05/02/2024 10:51:06 Abnormal. 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 Final Performing Location LABORATORY C - [address] [facility] [address]
--- OUTSIDE RECORDS SUMMARY | 2024-05-05 16:43 | External Medical Summary | Summary of Care ---
Author Name Unknown Organization [facility] Address [address] [place] [facility] [place] [address] Phone [phone] Care Team Providers Care Inter Fold Roll Cutter Name Role Phone Rahul Tucker MD Primary Care Provide r Reason for Visit * Reason Onset Date Comments Med Request 04/27/2024 Encounter Details Date Type Department Care Team (Late st Contact Info) Description 04/27/2024 Telephone Family Medicine [address] [phone] Rahul Tucker MD [address] [place] [address] [place] [address] Med Request Allergies Active Allergy Reactions Criticality Noted [...] evening. 60 Tablet 3 04/29/20 24 Active Torsemide 20 MG Oral Tablet [...] (Prevnar) 06/17/2014 Pneumococcal Conjugate Vacci ne, 20-valent ([id number]) 02/15/2022 Pneumococcal Polysaccharide PPV23 (Pneumovax) 05/19/2016 Seasonal [...] documented in this encounter Miscellaneous Notes * Addendum Note - Alie Uriostegui MD - 04/29/2024 6:33 PM EST Addended by: ALIE URIOSTEGUI on: 04/29/2024 06:33 PM Modules accepted: Orders * Telephone Encounter - Alie Uriostegui MD - 04/29/2024 6:32 PM EST Covering for Dr Tucker, sent refills. * Addendum Note - Jena Akers RN - 04/29/2024 4:49 PM ESTAddended by: JENA AKERS on: 04/29/2024 04:49 PM Modules accepted: Orders * Telephone Encounter - Silvia Louis [facility] - 04/29/2024 7:49 AM EST Spoke to Alie regarding the PT/INR machine at home and explained that insurance likely will not yet cover until patient has been established on warfarin therapy for at least 30 days (some plans require 90 days or more). Alie can draw the INR on the home visit May 02. Pt was scheduled for a fingerstick today at [facility], but [facility] called off-- need to call and changethat to an arm draw, which I will do a little later this morning. 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 Those include dizziness, drowsiness, swelling extremities, and he was also in for an extra treatment of dialysis. Pt also needs refill for Midodrine and Torsemide. She's asking for a 90 day supply per refill. She would also like the Torsemide to be updated from 100mg to the 60 that he's supposed to be taking. Alie also was wondering if it would be possible to order a PT INR machine for home or if it couldbe arranged for the [facility] to draw the PT INRs. documented in this encounter Plan of Treatment Upcoming Encounters Date Type Department Care Team (Late st Contact Info) Description 04/30/2024 7:00 AM EST Anticoagulation Pharmacy, [address] [place] [address] [place] [address] 05/02/2024 9:00 AM EST Pharmacy Pharmacy Hematology Oncology [address] [place] [address] [facility], [facility] Hem/Onc [address] [place] [address] 05/02/2024 10:40 AM EST Laboratory Laboratory [facility] [place] [address] [place] [phone] [place], Lab Scenery [address] [facility] [place] [address] 05/02/2024 11:45 AM EST Hem/Onc Treatment Hematology/Oncology Treatment, [place] [address] [facility] [place] [phone] 05/02/2024 5:30 PM EST Anticoagulation Pharmacy, [address] [place] [address] [place] [address] 05/20/2024 6:20 PM EST Office Visit Family Medicine [address] [place] [phone] Rahul Tucker MD [address] [place] [address] [place] [address] 07/17/2024 11:15 AM EDT Procedure Only Urology, [facility] [address] [facility] [place] [address] Duglas Tadeo MD [address] [place] [address] Scheduled Procedures Name Priority Associated Diagnoses Date/Ti [...] Advance Directives occurred with: Patient Care Teams Inter Fold Roll Cutter Relationship Specialty Start Date End Date Rahul Tucker MD [address] [place] [address] [place] [phone] PCP - General Family Medicine 08/03/18 documented as of this encounter
--- OUTSIDE RECORDS SUMMARY | 2024-05-05 16:43 | External Medical Summary ---
Author Name Unknown Address Unknown Organization K09:[facility] [place] [address] Laboratory Report Ordering Provider Test Date Status YOLA CHURCH 05/02/2024 10:51:06 Final Observation Date Value Abnormality Reference (Units ) Status WBC, Total 05/02/2024 10:51:06 20.32 Above high normal 4 .00-10.80 (K/uL) Final RBC 05/02/2024 10:51:06 3.13 4.50-5.25 (M/uL) Final Hemoglobin 05/02/2024 10:51:06 9.8 Below low normal 14 .0-16.8 (g/dL) Final HCT 05/02/2024 10:51:06 31.0 Below low normal 40. 0-48.4 (%) Final MCV 05/02/2024 10:51:06 99.0 82.0-99.5 (fL) Final MCH 05/02/2024 10:51:06 31.3 27.0-34.0 (pg) Final MCHC 05/02/2024 10:51:06 31.6 32.0-36.0 (g/dL) Final RDW 05/02/2024 10:51:06 19.9 11.5-15.5 (%) Final Platelets 05/02/2024 10:51:06 810 Above high normal 14 0-400 (K/uL) Final MPV 05/02/2024 10:51:06 9.6 6.6-11.1 ( fL) Final Performing Location [facility] [place] [address]
--- OUTSIDE RECORDS SUMMARY | 2024-05-05 16:43 | External Medical Summary | Summary of Care ---
Author Name Unknown Organization [facility] Address [address] [facility] [place] [address] Phone [phone] Care Team Providers Care Director Of Leadership Development Name Role Phone Rahul Tucker MD Primary Care Provide r Encounter Details Date Type Department Care Team (Late st Contact Info) Description 05/02/2024 Orders Only Hematology/Oncology [place] [address] [facility] [place] [phone] Brian Dyson MD [address] [facility] [place] [address] Light chain (AL) amyloidosis (HCC)* Allergies Active Allergy Reactions Criticality Noted Date [...] (Prevnar) 06/17/2014 Pneumococcal Conjugate Vacci ne, 20-valent ([id number]) 02/15/2022 Pneumococcal Polysaccharide PPV23 (Pneumovax) 05/19/2016 Seasonal [...] Author No 03/17/2024 6:46 PM EST Genoveva Cardona, YOHAN documented as of this encounter Mental Status * Because of a physical, mental, or emotional condition, do you have serious difficulty concentrating, remembering, or making decisions? (5 years old or older) Answer Entry Date Author No 03/17/2024 6:46 PM EST Genoveva Cardona RN documented in this encounter Progress Notes * Brian Dyson MD - 05/02/2024 12:26 PM EST Would like to cut down the dose of Benadryl to 25 mg IV as a part of the pre- chemotherapy. ( his blood pressure on lower side, he is on hemodialysis, sleeping a lot). documented in this encounter Plan of Treatment Upcoming Encounters Date Type Department Care Team (Latest Contact Info) Description 05/02/2024 5:30 PM EST Anticoagulation Pharmacy, [address] [place] [address] [place] [address] GARY (acute kidney injury) (HCC)*; Light chain (AL) amyloidosis (HCC) 05/20/2024 6:20 PM EST Office Visit Family Medicine [address] [place] [phone] Rahul Tucker MD [address] [place] [address] [place] [address] 07/17/2024 11:15 AM EDT Procedure Only Urology, 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 Question Answer Comments Discussion of Advance Directives occurred with: Patient Care Teams Director Of Leadership Development Relationship Specialty Start Date End Date Rahul Tucker MD [address] [place] [address] [place] [phone] PCP - General Family Medicine 08/03/18 documented as of this encounter
--- OUTSIDE RECORDS SUMMARY | 2024-05-05 16:43 | External Medical Summary | Summary of Care ---
Author Name Unknown Organization [facility] Address [address] [place] [address] Phone [phone] Care Team Providers Care Vba Developer Name Role Phone Rahul Tucker MD Primary Care Provide r Reason for Visit * Reason Comments Medication Management Encounter Details Date Type Department Care Team (Late st Contact Info) Description 05/02/2024 9:00 AM [facility] Pharmacy Pharmacy Hematology Oncology [facility] [address] [place] [address] [facility], [facility] Hem/Onc [address] [place], [place] [id number] Light chain (AL) amyloidosis (HCC)* Allergies Active [...] (Prevnar) 06/17/2014 Pneumococcal Conjugate Vacci ne, 20-valent ([id number]) 02/15/2022 Pneumococcal Polysaccharide PPV23 (Pneumovax) 05/19/2016 Seasonal [...] No 04/18/2024 Does the household have a [facility] source of income? 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 Jeane Dyson Additional Therapy: Bortezomib Daratumumab Dexamethasone Supportive Care Meds: Ondansetron Prochlorperazine Prophylactic Meds: Acyclovir Bisacodyl Miralax Senokot Docusate Relevant Chronic Medications: Category Medications Pertinent Notes Antihypertensives Torsemide 40mg daily Per PCP Anticoagulation ASA 81mg daily Pt hx Treatment History: None Medication education: Confirmed pt has received information regarding goals and duration of therapy: yes Reviewed dosing and administration: yes Reviewed importance of medication compliance (document recommendations if barriers identified): yes Reviewed appropriate storage conditions: yes Reviewed handling precautions: yes empties pt's alcaraz bag - advised to wear gloves for safety. replied with understanding Reviewed handling body fluids and waste: yes Reviewed side effects, monitoring, and supportive care measures: yes Cystitis - Diarrhea This medication can cause loose stools You can purchase OTC loperamide (Imodium A-D) to help manage this side effect (4 mg x 1, followed by 2 mg Q4H or after every loose stool, not to exceed 16 mg/day) Drink plenty of fluids to prevent dehydration, ideally 8-10 glasses per day (unless a healthcare provider has instructed you to limit your fluid intake due to other health conditions) Dietary modifications: eat bland, low fiber foods such as bananas, rice, applesauce, and toast (BRAT diet), avoid dairy, avoid spicy, greasy or fatty foods When to call clinic: If approaching maximum dose of loperamide and still having diarrhea or if you have any s/sx of dehydration; if there is a concern for infectious diarrhea (especially in setting of neutropenia) Nausea/Vomiting This medication may cause nausea or vomiting Moderate/high emetic risk: Zofran 30 minutes prior to chemotherapy and q8h PRN. Compazine for breakthrough N/V Dietary modifications: avoid spicy, greasy, fatty foods If vomiting, increase water intake to avoid dehydration When to call clinic: N/V refractory to antiemetics or if unable to keep up with oral intake Confirmed pt has received written information about drug therapy: yes Changes to medication list since last visit: no Drug interaction assessment: Treatment plan and current medication list evaluated for drug-drug interactions. No clinically significant drug interaction identified Does patient rely on caregiver for medication management? no Assessment and plan: Pt verbalized understanding to information provided. All questions answered to the patient's satisfaction Pt was educated about role of Oral Chemotherapy Clinic and pharmacist in medication management, andplan for follow up. WBC/ALC elevated. Will monitor closely PLT elevated. Will monitor closely AST slightly above ULN. Will monitor closely All other labs stable Provided with [facility] and [facility] contact information. Advised pt to start cyclophosphamide and take after HD Repeat labs in 1 week Follow up: 1 week Eulalia Lawrence, PharmD, BCOP Clinical Pharmacist, [facility] Oral Chemotherapy [facility] 05/02/2024, 1:04 PM Monitoring Parameters: Estimated CrCl ESRD - on HD Hepatitis panel Latest Reference Range & Units 04/03/24 06:04 Hepatitis B Surface Antibody, Quantitative mIU/mL 8.5 HEPATITIS B SURFACE ANTIBODY Rpt Hepatitis B Surface Antibody, Interpretation Suggest repeat testing in 1 to 3 months. Hepatitis B Surface Antibody, Qualitative Indeterminate Hepatitis B Core Antibody IgM Negative Negative test N/A - male Suggested lab monitoring Suggested lab monitoring: CBCd/BMP every month; UA every Month (presence of erythrocytes and other signs of urotoxicity and nephrotoxicity). Urinalysis Date Protein result Next Due 03/20/24 7352 (24 hour urine);' 929 Treatment Parameters Per PI Pertinent labs: Latest Reference Range & Units 05/02/24 10:51 WBC 4.00 - 10.80 K/uL 20.32 (H) RBC 4.50 - 5.25 M/uL 3.13 HGB 14.0 - 16.8 g/dL 9.8 (L) HCT 40.0 - 48.4 % 31.0 (L) MCV 82.0 - 99.5 fL 99.0 MCH 27.0 - 34.0 pg 31.3 MCHC 32.0 - 36.0 g/dL 31.6 RDW 11.5 - 15.5 % 19.9 PLT 140 - 400 K/uL 810 (H) MPV 6.6 - 11.1 fL 9.6 CBC WITH WBC DIFFERENTIAL Rpt ! Absolute Neutrophils 1.80 - 7.70 K/uL 18.08 (H) Latest Reference Range & Units 05/02/24 10:51 Albumin 3.8 - 5.0 g/dL 1.7 (L) AST 10 - 50 U/L 53 (H) ALT 10 - 50 U/L 25 Alkaline Phosphatase 35 - 130 U/L 1,027 (H) Bilirubin, Total <=1.2 mg/dL 0.3 Time Spent on Encounter: 16 - 20 minutes Encounter Group: Hematology Encounter Interventions Item Category: Oral Chemotherapy Cyclophosphamide Problem/Rationale: Indication: Needs additional medication therapy - Untreated condition, - Synergistic therapy Education: Initial education Pharmacist Intervention(s): Education provided and Lab monitoring Magnitude of Intervention: Monitoring with direction (Level 1) documented in this encounter Plan of Treatment Upcoming Encounters Date Type Department Care Team (Latest Contact Info) Description 05/02/2024 5:30 PM EST Anticoagulation Pharmacy, [address] [place] [address] [place] [address] GARY (acute kidney injury) (HCC)*; Light chain (AL) amyloidosis (HCC) 05/09/2024 9:00 AM EST Pharmacy Pharmacy Hematology Oncology [facility] [address] [place] [address] [facility] Hem/Onc [facility] [place] [address] 05/20/2024 6:20 PM EST Office Visit Family Medicine [address] [place] [phone] Rahul Tucker MD [address] [place] [address] [place] [address] 07/17/2024 11:15 AM EDT Procedure Only Urology, [facility] 132 [facility] [place] [address] Duglas Tadeo MD [address] [place] [address] Scheduled Procedures Name Priority Associated Diagnoses Date/Ti [...] Diagnosis Light chain (AL) amyloidosis (HCC)- Primary GARY (acute kidney injury) (HCC)- Primary Acute kidney failure, unspecified Light chain (AL) amyloidosis (HCC) documented in this encounter Advance Directives * Full Code (Latest Code Status on File) Date Activated Date Inactivated Comments 03/17/2024 7:37 PM 03/29/2024 7:58 PM This order reflects the patients wishes and were consensually agreed upon. Question Answer Comments Discussion of Advance Directives occurred with: Patient Care Teams Vba Developer Relationship Specialty Start Date End Date Rahul Tucker MD [address] [place] [address] [place] [address] PCP - General Family Medicine 08/03/18 documented as of this encounter
--- OUTSIDE RECORDS SUMMARY | 2024-05-05 16:43 | External Medical Summary | Summary of Care ---
Author Name Unknown Organization [facility] Address [address] [place] [address] Phone [phone] Care Team Providers Care Welding Rod Coater Name Role Phone Rahul Tucker MD Primary Care Provide r Reason for Visit * Reason Onset Date Comments Med Request 04/27/2024 Encounter Details Date Type Department Care Team (Late st Contact Info) Description 04/27/2024 Telephone Family Medicine [address] [phone] Rahul Tucker MD [address] [place] [address] [place] [address] Med Request Allergies Active Allergy Reactions [...] (Prevnar) 06/17/2014 Pneumococcal Conjugate Vacci ne, 20-valent ([id number]) 02/15/2022 Pneumococcal Polysaccharide PPV23 (Pneumovax) 05/19/2016 Seasonal [...] Tucker, sent refills. * Addendum Note - New Akers RN - 04/29/2024 4:49 PM ESTAddended by: NEW AKERS on: 04/29/2024 04:49 PM Modules accepted: Orders * Telephone Encounter - Silvia Louis [facility] - 04/29/2024 7:49 AM EST Spoke to Alie regarding the PT/INR machine at home and explained that insurance likely will not yet cover until patient has been established on warfarin therapy for at least 30 days (some plans require 90 days or more). Alie can draw the INR on the home visit May 02. Pt was scheduled for a fingerstick today at [facility] [place], but [facility] called off-- need to call and changethat to an arm draw, which I will do a little later this morning. Silvia Louis, PharmD, BCACP Clinical Pharmacist Medication Therapy Disease Management 04/29/2024, 7:51 AM * Telephone Encounter - Fan Gonzalez OSA - 04/27/2024 3:36 PM EST Alie from [facility] called to inform Rahul Tucker MD that [...] or if it couldbe arranged for the [facility] to draw the PT INRs. documented in this encounter Plan of Treatment Upcoming Encounters Date Type Department Care Team (Late st Contact Info) Description 05/02/2024 9:00 AM EST Pharmacy Pharmacy Hematology Oncology [place] [address] [place] [address] [facility] Hem/Onc [facility] [place] [address] 05/02/2024 10:40 AM EST Laboratory Laboratory [facility] [address] [place] [phone] [place], Lab Scenery [address] [place] [address] 05/02/2024 11:45 AM EST Hem/Onc Treatment [facility]ematology[facility]cology [facility], [place] [facility] [place] [phone] 05/02/2024 5:30 PM EST Anticoagulation Pharmacy, [address] [place] [address] [place] [address] 05/20/2024 6:20 PM EST Office Visit Family Medicine [address] [place] [phone] Rahul Tucker MD [address] [place] [address] [place] [address] 07/17/2024 11:15 AM EDT Procedure Only Urology, [facility] [address] [place] [facility] [place] [address] Duglas Tadeo MD [address] [facility] [place] [phone] Scheduled Procedures Name Priority Associated Diagnoses Date/Ti [...] Advance Directives occurred with: Patient Care Teams Welding Rod Coater Relationship Specialty Start Date End Date aRhul Tucker MD [address] [place] [address] [place] [address] PCP - General Family Medicine 08/03/18 documented as of this encounter
--- OUTSIDE RECORDS SUMMARY | 2024-05-05 16:43 | External Medical Summary | Summary of Care ---
Author Name Unknown Organization [facility] Address [address] [place] [address] Phone [phone] Care Team Providers Care Vamp Strap Ironer Name Role Phone Rahul Tucker MD Primary Care Provide r Reason for Visit * Reason Onset Date Comments Med Request 04/27/2024 Encounter Details Date Type Department Care Team (Late st Contact Info) Description 04/27/2024 Telephone Family Medicine [address] [phone] Rahul Tucker MD [address] [place] [address] [place] [address] Med Request Allergies Active Allergy Reactions [...] (Prevnar) 06/17/2014 Pneumococcal Conjugate Vacci ne, 20-valent ([id number]) 02/15/2022 Pneumococcal Polysaccharide PPV23 (Pneumovax) 05/19/2016 Seasonal [...] encounter Miscellaneous Notes * Addendum Note - Jena Akers RN - 04/29/2024 4:49 PM ESTAddended by: JENA AKERS on: 04/29/2024 04:49 PM Modules accepted: Orders * Telephone Encounter - Silvia Louis [facility] - 04/29/2024 7:49 AM EST Spoke to Merry regarding the PT/INR machine at home and explained that insurance likely will not yet cover until patient has been established on warfarin therapy for at least 30 days (some plans require 90 days or more). Merry can draw the INR on the home visit May 02. Pt was scheduled for a fingerstick today at clinic, but [facility] called off-- need to call and changethat to an arm draw, which I will do a little later this morning. [place] Louis, PharmD, BCACP Clinical Pharmacist Medication Therapy Disease Management 04/29/2024, 7:51 AM Electronically signed by Silvia Louis [facility] at 04/29/2024 7:51 AM EST * Telephone Encounter - Fan Gonzalez OSA - 04/27/2024 3:36 PM EST Merry from [facility] called to inform Rahul Tucker MD [...] 60 that he's supposed to be taking. Merry also was wondering if it would be possible to order a PT INR machine for home or if it couldbe arranged for the [facility] to draw the PT INRs. documented in this encounter Plan of Treatment Upcoming Encounters Date Type Department Care Team (Late st Contact Info) Description 04/30/2024 7:00 AM EST Anticoagulation Pharmacy, [address] [place] [address] [place] [address] 05/02/2024 9:00 AM EST Pharmacy Pharmacy Hematology Oncology [place] [address] [place] [address] [facility] Hem/Onc [facility] [place] [address] 05/02/2024 10:40 AM EST Laboratory Laboratory [facility] [place] [address] [place] [phone] [place], Lab Scenery [address] [facility] [place] [address] 05/02/2024 11:45 AM EST Hem/Onc Treatment Hematology/Oncology Treatment, [place] [address] [place] [phone] 05/02/2024 5:30 PM EST Anticoagulation Pharmacy, [address] [place] [address] [place] [address] 05/20/2024 6:20 PM EST Office Visit Family Medicine [address] [place] [phone] Rahul Tucker MD [address] [place] [address] [place] [address] 07/17/2024 11:15 AM EDT Procedure Only Urology, [facility] 132 [facility] [place] [address] Duglas Tadeo MD [address] [place] [address] Scheduled Procedures Name Priority Associated Diagnoses Date/Ti [...] Advance Directives occurred with: Patient Care Teams Vamp Strap Ironer Relationship Specialty Start Date End Date Rahul Tucker MD [address] [place] [address] [place] [address] PCP - General Family Medicine 08/03/18 documented as of this encounter
--- OUTSIDE RECORDS SUMMARY | 2024-05-05 16:44 | External Medical Summary | Summary of Care ---
Author Name Unknown Organization [facility] Address [address] [place] [address] Phone [phone] Care Team Providers Care Supervisor Sewing Department Name Role Phone Rahul Tucker MD Primary Care Provide r Reason for Visit * Reason Comments Outpatient Testing Encounter Details Date Type Department Care Team (Late st Contact Info) Description 04/25/2024 11:30 AM EST Laboratory Laboratory Sc[place]ery [place] [address] [place] [phone] [facility] Lab Scenery [address] [place] [address] GARY (acute kidney injury) ([facility]); Anticoagulation management encounter Allergies Active Allergy Reactions Criticality Noted Date Comments Azithromycin Hives 12/10/2010 documented as of this encounter (statuses as of 04/25/2024) Medications Finasteride 5 MG Oral Tablet (Proscar) [...] 03/29/20 Active Additional Information Patient taking differently: 100 mgOral Daily(AM), Reported on 04/22/2024 Bisacodyl 5 MG Oral Tablet Delayed Release [...] 30 Tablet 5 04/19/20 24 Active Gabapentin 300 MG Oral Capsule (Neurontin) Take 1 Capsule by mouth at bedtime. 04/22/20 24 Active Gabapentin 100 MG Oral Capsule (Neurontin) Take 1 capsule in AM and 1 capsule in afternoon. 04/22/20 24 Active documented as of this encounter (statuses as of 04/25/2024) Active Problems Problem Noted Date Diagnosed Date [...] as of this encounter (statuses as of 04/25/2024) Resolved Problems Problem Noted Date Diagnosed Date Resolved Date CKD (chronic kidney disease) stage 5, GFR less than 15 ml/min 03/28/2024 04/22/2024 Carpal tunnel syndrome 06/17/201402/08 Allergic rhinitis 06/17/2014 02/08/2018 Adjustment disorder with depressed mood 12/10/2013 07/20/2017 Eczema 06/22/2012 07/20/2017 Epileptic seizure 12/10/2010 08/16/2018 documented as of this encounter (statuses as of 04/25/2024) Immunizations Name Administration Dates Next Due Pneumococcal Conjugate Vacc, 13 Valent (Prevnar) 06/17/2014 Pneumococcal Conjugate Vacci ne, 20-valent ([id number]) 02/15/2022 Pneumococcal Polysaccharide PPV23 (Pneumovax) 05/19/2016 Seasonal [...] Team (Late st Contact Info) Description 04/25/2024 5:30 PM EST Anticoagulation Pharmacy, [address] [place] [address] [place] [address] 04/26/2024 9:15 AM EST Pharmacy Pharmacy Hematology Oncology [address] [address] [facility] Hem/Onc [facility] [place] [address] 05/02/2024 10:40 AM EST Laboratory Laboratory [facility] [address] [place] [phone] [place], Lab Scenery [address] [place] [address] 05/02/2024 11:45 AM EST Hem/Onc Treatment Hematology/Oncology Treatment, [place] 200 [facility] [place] [phone] 05/20/2024 6:20 PM EST Office Visit Family Medicine [address] [place] [phone] Rahul Tucker MD [address] [place] [address] [place] [address] 07/17/2024 11:15 AM EDT Procedure Only Urology, [facility] [address] [place] [address] Duglas Tadeo MD [address] [place] [address] Pending Results Name Type Priority Associated Diagnoses Date /Time PT INR Lab Routine GARY (acute kidney injury) (HCC) Anticoagulation management encounter 04/25/2024 11:42 AM EST Scheduled Procedures Name Priority Associated [...] Directives occurred with: Patient Care Teams Supervisor Sewing Department Relationship Specialty Start Date End Date Rahul Tucker MD [address] [place] [address] [place] [phone] PCP - General Family Medicine 08/03/18 documented as of this encounter
--- OUTSIDE RECORDS SUMMARY | 2024-05-05 16:44 | External Medical Summary | Summary of Care ---
Author Name Unknown Organization [facility] Address [address] [place] [address] Phone [phone] Care Team Providers Care Electronics Production Supervisor Name Role Phone Rahul Tucker MD Primary Care Provide r Reason for Visit * Reason Onset Date Comments Precert Future 04/11/2024 DaraVd + Oral Cy toxan Encounter Details Date Type Department Care Team (Late st Contact Info) Description 04/11/2024 Telephone Hematology/Oncology [facility] [address] [facility] [place] [address] Lynnette Dyson MD [address] [place] [facility] [place] [address] Precert Future (DaraVd + Oral Cytoxan) Allergies Active Allergy Reactions Criticality Noted Date Comments Azithromycin Hives 12/10/2010 documented as of this encounter (statuses as of 04/25/2024) Medications Finasteride 5 MG Oral Tablet (Proscar) Take 1 Tablet by mouth in the morning. 90 Tablet 3 02/28/20 24 Active Latanoprost 0.005 % Ophthalmic Solution (Xalatan) Instill into eye. Active Aspirin 81 MG Oral Tablet Delayed Release Take 1 Tablet by mouth in the morning. Active Atorvastatin Calcium 40 MG Oral Tablet (Lipitor) Take 1 Tablet by mouth every afternoon. 30 Tablet 5 03/29/20 Active Additional Information Patient [...] (morning, before bedtime). 238 g 03/29/20 Active Sennosides-Doc usate Sodium 8.6-50 MG Oral Tablet (Senokot-S) Take 1 Tablet by mouth in the morning and 1 Tablet at noon and 1 Tablet before bedtime. 90 Tablet 5 03/29/20 Active Additional Information Patient not taking.Reported on 04/22/2024 LiquaCel Oral Liquid Take 30 mL by mouth in the morning and 30 mL before bedtime. 1920 mL 11 03/29/20 025 Active Additional Information Patient not taking.Reported on 04/22/2024 Gabapentin 100 MG Oral Capsule (Neurontin) Take 1 Capsule by mouth at bedtime. 30 Capsule 5 03/29/20 024 Discontinued documented as of this encounter (statuses [...] (Prevnar) 06/17/2014 Pneumococcal Conjugate Vacci ne, 20-valent ([id number]) 02/15/2022 Pneumococcal Polysaccharide PPV23 (Pneumovax) 05/19/2016 Seasonal [...] encounter Miscellaneous Notes * Telephone Encounter - Kyree Zhu OSA - 04/25/2024 11:48 AM EST Patient scheduled at check out * Telephone Encounter - Genoveva Diez RN - 04/25/2024 10:50 AM EST Per chart review, Cytoxan was shipped 04/19/24. Scheduling: after patient is done seeing Dr Dyson, please schedule - labs "CBCd, CMP"- can be day of or day prior to treatment - 5 hour appt "C1D1 daraCyBorD" Thanks! * Telephone Encounter - Alida Rios RN - 04/15/2024 1:14 PM EST Education completed, T&S completed 04/12. * Addendum Note - Alida Rios RN - 04/12/2024 8:42 AM ESTAddended by: ALIDA RIOS on: 04/12/2024 08:42 AM Modules accepted: Orders * Telephone Encounter - Genoveva Diez RN - 04/12/2024 8:14 AM EST Referral entered for darzalex and velcade. * Addendum Note - Lynnette Dyson MD - 04/11/2024 4:58 PM ESTAddended by: LYNNETTE DYSON on: 04/11/2024 04:58 PM Modules accepted: Orders * Telephone Encounter - Lynnette Dyson MD - 04/11/2024 4:58 PM EST Ordered oral chemotherapy with oral cyclophosphamide. * Telephone Encounter - Alida Rios RN - 04/11/2024 4:[address] Dyson- please place new oral oncology plan for oral cyclophosphamide. Thank you. MTM - fyi. * Telephone Encounter - Alida Rios RN - 04/11/2024 3:09 PM EST Orders received, plan built and routed. Awaiting auth. -Chemo Consent: 04/10/24 -Chemo Education: 04/12/24 -Port Placement: N/A -Standing Lab orders placed: CBCD,CMP, [place], SPEP, IG Quant ---- Also T&S for patient to have completed at [facility] prior to starting. -Medications Pended: Decadron, Zofran, Compazine, Acyclovir -Hep B Labs: Completed 03/17/24 documented in this encounter Plan of Treatment Upcoming Encounters Date Type Department Care Team (Late st Contact Info) Description 04/25/2024 5:30 PM EST Anticoagulation Pharmacy, [address] [place] [address] [place] [address] 04/26/2024 9:15 AM EST Pharmacy Pharmacy Hematology Oncology [address] [address] [facility] Hem/Onc [facility] [place] [address] 05/02/2024 10:40 AM EST Laboratory Laboratory [facility] [address] [facility] [place] [address] [place], Lab [facility] [address] [facility] [place] [address] 05/02/2024 11:45 AM EST Hem/Onc Treatment Hematology/Oncology Treatment, [place] [address] [facility] [place] [phone] 05/20/2024 6:20 PM EST Office Visit Family Medicine [address] [place] [phone] Rahul Tucker MD [address] [place] [address] [place] [address] 07/17/2024 11:15 AM EDT Procedure Only Urology, [facility] 132 [facility] [place] [address] Duglas Tadeo MD [address] [place] [address] Scheduled Orders Name Type Priority Associated Diagnoses Orde r Schedule CBC WITH WBC DIFFERENTIAL Lab STAT Light chain (AL) amyloidosis (HCC) Every Week for 52 Occurrences starting 04/11/2024 until 04/11/2025, 1 completed COMPREHENSIVE METABOLIC PANEL Lab STAT Light chain (AL) amyloidosis (HCC) Every Week for 52 Occurrences starting 04/11/2024 until 04/11/2025, 1 completed IMMUNOGLOBULIN QUANTITATIVE Lab STAT Light chain (AL) amyloidosis (HCC) Every Month for 12 Occurrences starting 04/11/2024 until 04/11/2025, 1 completed SERUM FREE LIGHT CHAINS Lab STAT Light chain (AL) amyloidosis (HCC) Every Month for 12 Occurrences starting 04/11/2024 until 04/11/2025, 1 completed SERUM PROTEIN ELECTROPHORESIS REFLEX PROFILE Lab STAT Light chain (AL) amyloidosis (HCC) 12 Occurrences starting 04/11/2024 until 04/11/2025, 1 completed Scheduled Procedures Name Priority Associated Diagnoses Date/Ti [...] Not on filedocumented as of this encounter Results * (ABNORMAL) SERUM PROTEIN ELECTROPHORESIS REFLEX PROFILE (04/22/2024 2:18 PM EST) Normal/Abnormal Abnormal(A) Normal 04/23/20 2:37 PM EST [facility] Protein 5.5(L) 6.0 - 8.3 g/dL 04/23/2024 2:37 PM EST [facility] Albumin 1.35(L) 3.30 - 4.40 g/dL 04/23/2024 2:37 PM EST [facility] Alpha-1 Globulin 0.26 0.10 - 0.30 g/dL 04/23/2024 2:37 PM EST [facility] Alpha-2 Globulin 0.90 0.60 - 1.00 g/dL 04/23/2024 2:37 PM EST [facility] Beta-Globulin 1.03 0.80 - 1.30 g/dL 04/23/2024 2:37 PM EST [facility] Gamma-Globulin 1.97(H) 0.70 - 1.70 g/dL 04/23/2024 2:37 PM EST [facility] M Jeff 1.63 g/dL 04/23/2024 2:37 PM EST [facility] Electrophoresis Interpretation Abnormal. 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 04/23/2024 2:37 PM EST [facility] Blood Venous blood specimen / Unknown Venipuncture / Unknown 04/22/2024 2:18 PM EST 04/22/2024 2:18 PM EST us Lynnette Dyson MD LAB BLOOD ORDERABLES Final Res ult [facility] [address] [place] [address] * (ABNORMAL) SERUM FREE LIGHT CHAINS (04/22/2024 2:18 PM EST) Misenheimer Free Light Chains, Serum 308.00(H) 3.30 - 19.40 mg/L 04/23/2024 3:16 PM EST [facility] Lambda Free Light Chains, Serum 143.09(H) 5.71 - 26.30 mg/L 04/23/2024 3:16 PM EST [facility] [place]heimer Lambda Free Light Chains Ratio 2.15(H) 0.26 - 1.65 04/23/2024 3:16 PM EST [facility] Blood Venous blood specimen / Unknown Venipuncture / Unknown 04/22/2024 2:18 PM EST 04/22/2024 2:18 PM EST Lynnette Dyson MD LAB BLOOD ORDERABLES Final Res ult [facility] [address] [place] [address] * (ABNORMAL) IMMUNOGLOBULIN QUANTITATIVE (04/22/2024 2:18 PM EST) Pathologist [facility] IgG 2,137(H) 700 - 1,600 mg/dL 04/23/2024 12:21 AM EST [facility] IgA 305 70 - 400 mg/dL 04/23/2024 12:21 AM EST [facility] IgM 99 40 - 230 mg/dL 04/23/2024 12:21 AM EST [facility] Blood Venous blood specimen / Unknown Venipuncture / Unknown 04/22/2024 2:18 PM EST 04/22/2024 2:18 PM EST Lynnette Dyson MD LAB BLOOD ORDERABLES Final Res ult [facility] [address] [place] [address] * (ABNORMAL) COMPREHENSIVE METABOLIC PANEL (04/22/2024 2:18 PM EST) Pathologist [facility] BUN 43(H) 6 - 20 mg/dL 04/23/2024 1:42 AM EST LABORATORY [facility] CREATININE 3.5(H) 0.6 - 1.2 mg/dL 04/23/2024 1:42 AM EST [facility] EGFR 18(L) >=60 mL/min 04/23/2024 1:42 AM EST [facility] Comment:eGFR is calculated b ased on the CKD-EPI 2020 equation. SODIUM 140 135 - 146 mmol/L 04/23/2024 1:42 AM EST [facility] POTASSIUM 4.2 3.5 - 5.1 mmol/L 04/23/2024 1:42 AM EST [facility] CHLORIDE 99 98 - 107 mmol/L 04/23/2024 1:42 AM EST [facility] CO2 26 22 - 32 mmol/L 04/23/2024 1:42 AM EST [facility] ANION GAP 15 7 - 15 mmol/L 04/23/2024 1:42 AM EST [facility] GLUCOSE 92 70 - 120 mg/dL 04/23/2024 1:42 AM EST [facility] Albumin 1.7(L) 3.8 - 5.0 g/dL 04/23/2024 1:42 AM EST [facility] AST 68(H) 10 - 50 U/L 04/23/2024 1:42 AM EST [facility] Alkaline Phosphatase 1,710(H) 35 - 130 U/L 04/23/2024 1:42 AM EST [facility] Bilirubin, Total 0.4 <=1.2 mg/dL 04/23/2024 1:42 AM EST [facility] CALCIUM 7.7(L) 8.4 - 10.2 mg/dL 04/23/2024 1:42 AM EST [facility] Protein 5.5(L) 6.0 - 8.3 g/dL 04/23/2024 1:42 AM EST [facility] ALT 35 10 - 50 U/L 04/23/2024 1:42 AM EST [facility] Blood Venous blood specimen / Unknown Venipuncture / Unknown 04/22/2024 2:18 PM EST 04/22/2024 2:18 PM EST us Lynnette Dyson MD LAB BLOOD ORDERABLES Final Res ult [facility] [address] [place] [address] * TYPE AND SCREEN (04/12/2024) Blood Venous blood specimen / Unknown 04/12/2024 us Lynnette Dyson MD LAB BLOOD BANK TEST ORDERABLES Final Result documented in this encounter Visit Diagnoses Diagnosis Light chain (AL) amyloidosis (HCC)- Primary documented in this encounter Advance Directives * Full Code (Latest Code Status on File) Date Activated Date Inactivated Comments 03/17/2024 7:37 PM 03/29/2024 7:58 PM This order reflects the patients wishes and were consensually agreed upon. Question Answer Comments Discussion of Advance Directives occurred with: Patient Care Teams Electronics Production Supervisor Relationship Specialty Start Date End Date Rahul Tucker MD [address] [place] [address] [place] [address] PCP - General Family Medicine 08/03/18 documented as of this encounter
--- OUTSIDE RECORDS SUMMARY | 2024-05-05 16:44 | External Medical Summary | Summary of Care ---
Author Name Unknown Organization [facility] Address [address] [place] [facility] [facility] [place] [address] Phone [phone] Care Team Providers Care Scan Coordinator Name Role Phone Rahul Tucker MD Primary Care Provide r Reason for Visit * Reason Comments Dosage Adjustment Via Phone (anticoag Cl inic) Encounter Details Date Type Department Care Team (Latest Contact Info) Description 04/29/2024 1:20 PM [facility] Anticoagulation Pharmacy, [address] [place] [address] [place] [address] Anticoagulation management encounter*; GARY (acute kidney injury) [...] (Prevnar) 06/17/2014 Pneumococcal Conjugate Vacci ne, 20-valent ([id number]) 02/15/2022 Pneumococcal Polysaccharide PPV23 (Pneumovax) 05/19/2016 Seasonal [...] documented in this encounter Progress Notes * Luis Louis, [facility] - 04/29/2024 7:52 AM EST Medication Therapy Disease Management - Anticoagulation Patient: Dre Hitchcock Jody | : 1950 Subjective Contacts Contact Date/Time Type Contact Phone/Fax 04/29/2024 08:16 AM EST Phone (Outgoing) Bina Vera (Emergency Contact) [phone] (M) Spoke to Patient Objective Current Warfarin Dose As of 04/29/2024 Warfarin maintenance plan: No maintenance plan INR Result As of 04/29/2024 INR goal: 2.0-3.0 INR used for dosing: No new INR was available at the time of this encounter. Assessment & Plan Warfarin Plan As of 04/29/2024 Full warfarin instructions: 04/29: 5 mg Next INR check: 04/29/2024 or 04/30/2024 -- > pt's unsure if they will be able to make it to the lab today Repeat PT/INR in 1 day(s) Weekly dose: establishing Additional Dosing Information: Description Pt would like to consider a home INR machine -- advised will try to submit paperwork after 1 month of therapy (per most insurance requirements) Can use [facility] for INR draws (fax: [phone]). I spent a total of 10-19 minutes (exact time 16 mins) on the date of service in preparation, delivery, and documentation of the care provided to Dre Vera excluding any time spent in the performance of separately billed services or time spent by another provider/QHP. Luis Louis [facility] Clinical Pharmacist 04/29/2024, 8:22 AM documented in this encounter Miscellaneous Notes * Addendum Note - Luis Louis RPh - 04/29/2024 12:53 PM EST Addended by: LUIS LOUIS on: 04/29/2024 12:53 PM Modules accepted: Level of Service documented in this encounter Plan of Treatment Upcoming Encounters Date Type Department Care Team (Late st Contact Info) Description 04/30/2024 7:00 AM EST Anticoagulation Pharmacy, [address] [place] [address] [place] [address] 05/02/2024 9:00 AM EST Pharmacy Pharmacy Hematology Oncology [address] [address] [facility] Hem/[place] [address] 05/02/2024 10:40 AM EST Laboratory Laboratory [facility] [place] [address] [place] [phone] [place], [facility] 200 [facility] [place] [address] 05/02/2024 11:45 AM EST Hem/Onc Treatment Hematology/Oncology Treatment, [place] [address] [facility] [place] [address] 05/02/2024 5:30 PM EST Anticoagulation Pharmacy, [address] [place] [address] [place] [address] 05/20/2024 6:20 PM EST Office Visit Family [address] [place] [phone] Rahul Tucker MD [address] [place] [address] [place] [address] 07/17/2024 11:15 AM EDT Procedure Only Urology, [facility] [address] [facility] [place] [address] uDglas Tadeo MD [address] [place] [address] Scheduled Procedures Name Priority Associated Diagnoses [...] Advance Directives occurred with: Patient Care Teams Scan Coordinator Relationship Specialty Start Date End Date Rahul Tucker MD [address] [place] [address] [place] [address] PCP - General Family Medicine 08/03/18 documented as of this encounter"
--- OUTSIDE RECORDS SUMMARY | 2024-05-05 16:44 | External Medical Summary | Summary of Care ---
Author Name Unknown Organization [facility] Address [address] [place] [address] Phone [phone] Care Team Providers Care Grocery Bagger Name Role Phone Rahul Tucker MD Primary Care Provide r Reason for Visit * Reason Onset Date Comments Advice 04/26/2024 Alcaraz cath Encounter Details Date Type Department Care Team (Late st Contact Info) Description 04/26/2024 Telephone Family Medicine [address] [phone] Rahul Tucker MD [address] [place] [address] [place] [address] Advice (Alcaraz cath) Allergies Active Allergy Reactions Criticality Noted Date Comments Azithromycin Hives 12/10/2010 documented as of this encounter (statuses as of 04/26/2024) Medications Finasteride 5 MG Oral Tablet (Proscar) [...] as of this encounter (statuses as of 04/26/2024) Active Problems Problem Noted Date Diagnosed Date [...] as of this encounter (statuses as of 04/26/2024) Resolved Problems Problem Noted Date Diagnosed Date Resolved Date CKD (chronic kidney disease) stage 5, GFR less than 15 ml/min 03/28/2024 04/22/2024 Carpal tunnel syndrome 06/17/201402/08 Allergic rhinitis 06/17/2014 02/08/2018 Adjustment disorder with depressed mood 12/10/2013 07/20/2017 Eczema 06/22/2012 07/20/2017 Epileptic seizure 12/10/2010 08/16/2018 documented as of this encounter (statuses as of 04/26/2024) Immunizations Name Administration Dates Next Due Pneumococcal Conjugate Vacc, 13 Valent (Prevnar) 06/17/2014 Pneumococcal Conjugate Vacci ne, 20-valent ([id number]) 02/15/2022 Pneumococcal Polysaccharide PPV23 (Pneumovax) 05/19/2016 Seasonal [...] encounter Miscellaneous Notes * Telephone Encounter - Ivania Tenorio CMA - 04/26/2024 11:29 AM EST Kaleigh called from [facility]. Dre still has the alcaraz catheter in place. She was questioning if it still needed to be in. I read her Dr. Bingham plan from the 04/22/2024 note that said they could remove it and resume straight cathing. She asked if they have the supplies. I told her I didn't know but base off the documenatation in the office visit it sounded like they had the knowledge and ability to do it. I told if they didn't tocall us back with the name of their home health and we could send the office note with the plan to them for orders or get an order put in to have it removed at his vist on Monday. documented in this encounter Plan of Treatment Upcoming Encounters Date Type Department Care Team (Latest Contact Info) Description 04/26/2024 5:10 PM EST Anticoagulation Pharmacy, [address] [place] [address] [place] [address] Anticoagulation management encounter*; GARY (acute kidney injury) (HCC); Light chain (AL) amyloidosis (HCC) 04/29/2024 1:20 PM EST Anticoagulation Pharmacy, [address] [place] [address] [place] [address] 05/02/2024 9:00 AM EST Pharmacy Pharmacy Hematology Oncology [facility] [address] [place] [address] [facility] Hem/Onc [address] [place] [address] 05/02/2024 10:40 AM EST Laboratory Laboratory [address] [place] [address] [place] [phone] [place], Lab [address]enery [address] [place] [address] 05/02/2024 11:45 AM EST Hem/Onc Treatment Hematology/Oncolog y Treatment, [place] [address] [place] [phone] 05/20/2024 6:20 PM EST Office Visit Family Medicine [address] [place] [phone] Rahul Tucker MD [address] [place] [address] [place] [address] 07/17/2024 11:15 AM EDT Procedure Only Urology, [facility] [address] [facility] [place] [address] Duglas Tadoe MD [address] [place] [address] Scheduled Procedures Name Priority Associated Diagnoses Date/Ti [...] Advance Directives occurred with: Patient Care Teams Grocery Bagger Relationship Specialty Start Date End Date Rahul Tucker MD [address] [place] [address] [place] [address] PCP - General Family Medicine 08/03/18 documented as of this encounter
--- OUTSIDE RECORDS SUMMARY | 2024-05-05 16:44 | External Medical Summary | Summary of Care ---
Author Name Unknown Organization [facility] Address [address] [facility] [place] [address] Phone [phone] Care Team Providers Care Provider Contracting Consultant Name Role Phone Rahul Tucker MD Primary Care Provide r Reason for Visit * Reason Comments Dosage Adjustment Via Phone (anticoag Cl inic) Encounter Details Date Type Department Care Team (Latest Contact Info) Description 04/29/2024 1:20 PM [facility] Anticoagulation Pharmacy, [address] [place] [address] [place] [address] Anticoagulation management encounter*; GARY (acute kidney injury) (HCC); Light chain (AL) amyloidosis ([facility]) Allergies Active Allergy Reactions Criticality [...] (Prevnar) 06/17/2014 Pneumococcal Conjugate Vacci ne, 20-valent ([id number]) 02/15/2022 Pneumococcal Polysaccharide PPV23 (Pneumovax) 05/19/2016 Seasonal [...] documented in this encounter Progress Notes * Silvia Louis, [facility] - 04/29/2024 7:52 AM EST Medication Therapy Disease Management - Anticoagulation Patient: Dre Hitchcock Jody | : 1950 Subjective Contacts Contact Date/Time Type Contact Phone/Fax 04/29/2024 08:16 AM EST Phone (Outgoing) Bina Vera (Emergency Contact) [phone] (M) Spoke to Patient Objective Current Warfarin [...] therapy (per most insurance requirements) [facility] (fax: [phone]). I spent a total of 10-19 minutes (exact time 16 mins) on the date of service in preparation, delivery, and documentation of the care provided to Dre Vera excluding any time spent in the performance of separately billed services or time spent by another provider/QHP. Silvia Louis [facility] Clinical Pharmacist 04/29/2024, 8:22 AM documented in this encounter Plan of Treatment Upcoming Encounters Date Type Department Care Team (Late st Contact Info) Description 04/30/2024 7:00 AM EST Anticoagulation Pharmacy, [address] [place] [address] [place] [address] 05/02/2024 9:00 AM EST Pharmacy Pharmacy Hematology Oncology [address] [address] [facility] Hem/Onc [facility] [place] [address] 05/02/2024 10:40 AM EST Laboratory Laboratory Scenery [facility] [address] [place] [phone] [place], Lab Scenery [address] [place] [address] 05/02/2024 11:45 AM EST Hem/Onc Treatment Hematology/Oncology Treatment, [place] [address] [place] [address] 05/02/2024 5:30 PM EST Anticoagulation Pharmacy, [address] [place] [address] [place] [address] 05/20/2024 6:20 PM EST Office Visit Family Medicine [address] [place] [phone] Rahul Tucker MD [address] [place] [address] [place] [address] 07/17/2024 11:15 AM EDT Procedure Only Urology, [facility] [place] [address] Duglas Tadeo MD [address] [place] [address] Scheduled Procedures Name Priority Associated Diagnoses Date/Ti [...] Advance Directives occurred with: Patient Care Teams Provider Contracting Consultant Relationship Specialty Start Date End Date Rahul Tucker MD [address] [place] [address] [place] [address] PCP - General Family Medicine 08/03/18 documented as of this encounter"
--- OUTSIDE RECORDS SUMMARY | 2024-05-05 16:44 | External Medical Summary | Summary of Care ---
Author Name Unknown Organization [facility] Address [address] [place] [address] Phone [phone] Care Team Providers Care Photo Studio Assistant Name Role Phone Rahul Tucker MD Primary Care Provide r Reason for Visit * Reason Comments Outpatient Testing Encounter Details Date Type Department Care Team (Late st Contact Info) Description 04/25/2024 11:30 AM EST Laboratory Laboratory [address] [place] [address] [place] [phone] [facility] Lab Scenery [address] [place] [address] GARY (acute kidney injury) ([facility]); Anticoagulation management encounter Allergies Active Allergy Reactions [...] (Prevnar) 06/17/2014 Pneumococcal Conjugate Vacci ne, 20-valent ([id number]) 02/15/2022 Pneumococcal Polysaccharide PPV23 (Pneumovax) 05/19/2016 Seasonal [...] Description 04/25/2024 5:30 PM EST Anticoagulation Pharmacy, [address] [place] [address] [place] [address] 04/26/2024 9:15 AM EST Pharmacy Pharmacy Hematology Oncology [address] [address] [facility] Hem/Onc [facility] [place] [address] 05/02/2024 10:40 AM EST Laboratory Laboratory [facility] [address] [place] [phone] [place], Lab Scenery [address] [place] [address] 05/02/2024 11:45 AM EST Hem/Onc Treatment Hematology/Oncology Treatment, [place] 200 [facility] [place] [address] 05/20/2024 6:20 PM EST Office Visit Family Medicine [address] [place] [phone] Rahul Tucker MD [address] [place] [address] [place] [address] 07/17/2024 11:15 AM EDT Procedure Only Urology, [facility] [address] [place] [address] Duglas Tadeo MD [address] [place] [address] Pending Results Name Type Priority Associated Diagnoses [...] Advance Directives occurred with: Patient Care Teams Photo Studio Assistant Relationship Specialty Start Date End Date Rahul Tucker MD [address] [place] [address] [place] [phone] PCP - General Family Medicine 08/03/18 documented as of this encounter
--- OUTSIDE RECORDS SUMMARY | 2024-05-05 16:44 | External Medical Summary | Summary of Care ---
Author Name Unknown Organization [facility] Address [address] [place] [address] Phone [phone] Care Team Providers Care Spirits Model Name Role Phone Rahul Tucker MD Primary Care Provide r Reason for Visit * Reason Comments Follow Up Return/Scan review Encounter Details Date Type Department Care Team (Late st Contact Info) Description 04/25/2024 10:45 AM EST Office Visit Hematology/Oncology [facility] [address] [facility] [place] [phone] Brian Dyson MD 200 [place] [address] Light chain (AL) amyloidosis (HCC)* Allergies Active [...] (Prevnar) 06/17/2014 Pneumococcal Conjugate Vacci ne, 20-valent ([id number]) 02/15/2022 Pneumococcal Polysaccharide PPV23 (Pneumovax) 05/19/2016 Seasonal [...] Sign Reading Time Taken Comments Blood Pressure 68/44 04/25/2024 10:32 AM EST Pulse 78 04/25/2024 10:32 AM EST Temperature 36.9 C (98.4 F) 04/25/2024 10:[address] Respiratory Rate - - Oxygen Saturation 94% 04/25/2024 10:32 AM EST Inhaled Oxygen Concentration - - Weight 90.7 kg (200 lb) 04/25/2024 10:32 AM EST Height - - Body Mass Index 28.7 03/17/2024 6:46 PM EST documented in this [...] Progress Notes * Brian Dyson MD - 04/25/2024 10:45 AM EST Hematology/Oncology Outpatient Consult Note Carson Dove [address] 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 He has significant proteinuria. Urine protein/creatinine ratio was around 26 g. ESRD, currently on hemodialysis. 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 He will have treatment on the following day of the dialysis. ( he is on dialysis 3 days a week, Monday, Monday, Monday). He was on heparin prophylaxis, now he is on oral Coumadin prophylaxis as he is at high-risk for thrombotic complications. DIAGNOSTIC WORKUP: He says that he had a COVID-19 infection earlier in March of 2023 and he is not feeling quite well since then. In June of 2023, he had low blood pressure, he was passing out, he was seen at [facility] ER, CT head was unremarkable, CT chest with PE protocol on 06/14/2023: Unremarkable, normal cardiac size noted, no pericardial effusion. No PE. Subcentimeter mediastinal lymph nodes noted. Once again he was admitted in October 2023 for increasing leg edema, there was no evidence of DVT on Doppler evaluation CT scan of the abdomen pelvis with contrast on 11/19/2023 at [facility] showed findings suggestive of nodular counter of the liver consistent with cirrhosis, no liver or spleen masses. Blood workup showed normal WBC, normal hemoglobin level, Platelet count is slightly higher side around 450 to 840397 range. Urine showed significant protein. (4+). PT [...] abnormal liver findings. 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 Currently he is on hemodialysis 3 days a week. His blood pressure has remained on the lower side, we have not start him on any kind of treatment so far but planning to start next week. He came to clinic in the wheelchair. No fever, feeling weak and tired, appetite, current weight around 200 lb, he says he still makes small amount of urine about 200 in a day. No fever. Shortness of breath is present. No anginal chest pain. No abdominal pain. No diarrhea or constipation. Past Medical History: Diagnosis Date Myras disease (HCC) Cirrhosis (HCC) Dyslipidemia, goal LDL below 130 HTN, goal below 140/90 Other forms of epilepsy and recurrent seizures without mention of intractable epilepsy 05/01/1970 While in the service--Last seizure in 1978 Other pulmonary embolism and infarction 05/01/1985 10 days after back surgery Past Surgical History: Procedure Laterality Date CARPAL TUNNEL SURGERY 2011 right 2011 COLONOSCOPY 06/03/2015 [place]--polyps--benign DENTAL SURGERY PROCEDURE NEC [place] teeth removed EGD, FLEXIBLE, DIAGNOSTIC 12/11/2023 mild portal hypertensive gastropathy/recall 2 years/ESOPHAGOGASTRODUODENOSCOPY (EGD), FLEXIBLE, TRANSORAL, DIAGNOSTIC performed by Dolores Edmonds MD at ENDOSCOPY [facility] IR BIOPSY 03/21/2024 IR VENOUS ACCESS NON-MEDIPORT 03/21/2024 PATIENT EDU, LUMBAR LAMINECTOMY 1986 Back surgery at [facility] [place] ARTHROPLASTY GLENOHUMERAL JOINT TOTAL SHOULDER Right 11/2021 Dr. Correia RE-REPAIR DETACHED RETINA Both eyes REPAIR ARM TENDON/MUSCLE 2007 Right rotator cuff repair REPAIR RUPTURED ROTATOR CUFF, ACUTE Left 04/27/2017 Dr. Hui Current Outpatient Medications Medication Sig Dispense Refill Finasteride 5 MG Oral Tablet (Proscar) Take 1 Tablet by mouth in the morning. 90 Tablet 3 Latanoprost 0.005 % Ophthalmic Solution (Xalatan) Instill into eye. Aspirin 81 MG Oral Tablet Delayed Release Take 1 Tablet by mouth in the morning. Atorvastatin Calcium 40 MG Oral Tablet (Lipitor) Take 1 Tablet by mouth every afternoon. (Patient not taking: Reported on 04/18/2024) 30 Tablet 5 Torsemide 20 MG Oral Tablet (Demadex) Take 2 Tablets by mouth in the morning. (Patient taking differently: Take 5 Tablets by mouth in the morning.) 60 Tablet 5 Bisacodyl 5 MG Oral Tablet Delayed Release (Dulcolax) Take 1 Tablet by mouth twice per day (morning, before bedtime). (Patient not taking: Reported on 04/18/2024) 60 Tablet 5 Polyethylene Glycol 3350 17 GM/SCOOP Oral Powder (Miralax) Mix and dissove one capful (to fill line) in 8 oz of juice or water and take by mouth twice per day (morning, before bedtime). 238 g 0 Sennosides-Docusate Sodium 8.6-50 MG Oral Tablet (Senokot-S) Take 1 Tablet by mouth in the morning and 1 Tablet at noon and 1 Tablet before bedtime. (Patient not taking: Reported on 04/22/2024) 90 Tablet 5 LiquaCel Oral Liquid Take 30 mL by mouth in the morning and 30 mL before bedtime. (Patient not taking: Reported on 04/22/2024) 1920 mL 11 Prochlorperazine Maleate 10 MG Oral Tablet (Compazine) Take 1 Tablet by mouth every 6 hours as needed for Nausea. 30 Tablet 3 Ondansetron HCl 8 MG Oral Tablet (Zofran) Take 1 Tablet by mouth every 8 hours as needed for Nausea. 30 Tablet 2 dexAMETHasone 4 MG Oral Tablet (Decadron) Take 5 tablets by mouth once a week prior to treatment for 3 weeks, then 10 tablets weekly after. 55 Tablet 0 Acyclovir 400 MG Oral Tablet (Zovirax) Take 1 Tablet by mouth in the morning and 1 Tablet before bedtime. 180 Tablet 1 Omeprazole 20 MG Oral Capsule Delayed Release (PriLOSEC) Take 1 Capsule by mouth in the morning. 30Capsule 1 Midodrine HCl 10 MG Oral Tablet (Proamatine) Take 1 Tablet by mouth in the morning and 1 Tablet at noon and 1 Tablet in the evening. cycloPHOSphamide 50 MG Oral Capsule (Cytoxan) Take 6 capsules by mouth once a week. 24 Capsule 5 Warfarin Sodium 5 MG Oral Tablet (Coumadin) Take up to 1 tablet by mouth daily as directed by anticoagulation clinic. 30 Tablet 5 Gabapentin 300 MG Oral Capsule (Neurontin) Take 1 Capsule by mouth at bedtime. Gabapentin 100 MG Oral Capsule (Neurontin) Take 1 capsule in AM and 1 capsule in afternoon. No current facility-administered medications for this visit. [...] Not on file Tobacco Use Smoking status: Former Current packs/day: 0.50 Average packs/day: 0.5 packs/day for 11.0 years (5.5 ttl pk-yrs) Types: Cigarettes, Cigars Smokeless tobacco: Former Quit date: 01/08/2015 Tobacco comments: Quit 6 weeks ago Vaping Use Vaping status: Never Used Substance and Sexual Activity Alcohol use: Never Drug use: No Sexual activity: Not on file Other Topics Concern Not on file Social History Narrative Not on file Social Needs Financial Resource Strain: Low Risk (04/18/2024) Financial Resource Strain Do you have any trouble paying for your medications, or do you think you might in the future? (Adult - for ages 18 years and over): No Does your family have trouble paying for medicine? (Household - for ages 0-17 years): Not on file Food Insecurity: No Food Insecurity (04/18/2024) Food Insecurity Do you need food for this week? (Adult - for ages 18 years and over): No Are you able to get enough food for your family? (Household - for ages 0-17 years): Not on file Does your family need food this week? (Household - for ages 0-17 years): Not on file Do you always have enough food for your family? (Household - for ages 0-17 years): Not on file Transportation Needs: No Transportation Needs (04/18/2024) Transportation Needs Do you have trouble getting a ride to medical visits or work? (Adult - for ages 18 years and over):Not on file Does your family have a hard time getting a ride to doctors visits? (Household - for ages 0-17 years): Not on file Has lack of transportation kept you from medical appointments, meetings, work, or from getting things needed for daily living? Check all that apply. (Adult - for ages 18 years and over): No Do you (or your family) have trouble finding or paying for a ride (transportation)? (Household - for ages 0-17 years): Not on file Social Connections: Socially Integrated (04/18/2024) Social Connections How often do you feel lonely or isolated from those around you? (Adult - for ages 18 years and over): Never Housing Stability: Low Risk (04/18/2024) Housing Stability Do you currently live in a skilled nursing or have no steady place to sleep at night? (Adult - for ages 18 years and over): No Do you think you are at risk of becoming homeless? (Adult - for ages 18 years and over): Not on file Does your family worry about paying for your home or becoming homeless? (Household - for ages 0-17 years): Not on file Are you homeless or worried that you might be in the future? (Adult - for ages 18 years and over): No Are you (or your family) homeless or worried that you might be in the future? (Household - for ages0-17 years): Not on file On Exam: BP 68/44 (BP Site: Left Arm, BP Position: Sitting, BP Cuff Size: Regular) | Pulse 78 | Temp 36.9 C (98.4 F) (Tympanic) | Wt 90.7 kg (200 lb) | SpO2 94% | BMI 28.70 kg/m | BSA 2.12 m Constitutional: Patient is alert, cooperative and [...] SPINE: No spinal or paraspinal tenderness. LABS: Reviewed blood workup done on 04/19/2024: -WBC 24865, Hemoglobin and hematocrit - 9.1/27.9, Platelet count of 072854 -MCV 94 -BUN/Creat: 27/2.8, AST 104, ALT 44, alkaline phosphatase > 1200, bilirubin level 0.6. IMAGING: Echocardiogram done on 03/26/2024: -LV ejection fraction 55 to 59%, -Beta-2 microglobulin--> 5.7 ( 03/05/2024 ) -pro BNP --> 9922 ( 03/18/2024). ASSESSMENT AND PLAN: 73-year-old male, who has progressively increasing shortness of breath, syncope, hypotension, foundto have hepatomegaly, liver size about 21 cm, no splenomegaly, nephrotic range proteinuria, bilateral leg edema, declining performed status, ambulating with the help of the wheelchair. Additional blood workup shows IgG kappa paraprotein in the blood. No anemia, serum creatinine around 1.3 mg/dL, no hypercalcemia. Subsequently he developed worseningrenal function test, he was transferred at [facility], had kidney biopsy which confirmed the diagnosis of AL amyloidosis, reviewed the bone marrow findings with him and his . He had left leg [id number] amputation for arterial clot. I reviewed with them regarding the diagnostic workup, has significantly elevated pro BNP around 10,000 range, currently on hemodialysis 5 days a week. We talked about systemic treatment that can be considered, reviewed the information outlined on [facility] website. I would consider following treatment plan and they are in agreement for that. -cyclophosphamide 150 mg/m every weekly by mouth (50% dose reduction because of ongoing hemodialysis ) -Velcade 1.3 mg/m every weekly -Darzalex Faspro every weekly for 8 weeks followed by every 2 weekly for additional x 8 doses and then every 4 weekly - Decadron 40 mg every weekly ( p.o. ). He should take oral medication as well as subcutaneous injections after the hemodialysis is done. He gets dialysis 3 days a week ( Monday, Monday, Monday, will come for the treatment on the following day of the dialysis). Earlier he was on heparin prophylaxis, now switch over to oral Coumadin prophylaxis. No new bleeding complications. He will take acyclovir prophylaxis. He will take Compazine Zofran for the symptomatic treatment of nausea and vomiting. Once we start on treatment will see him in about [address] Brian Dyson Hem/Onc (This note was [...] Nursing Notes * Yaima Urias CMA - 04/25/2024 10:32 AM EST Patient identifed by name and [...] it for you? ALREADY ACTIVE Filed Vitals: 04/25/24 1032 BP: 68/44 Pulse: 78 Temp: 36.9 C (98.4 F) TempSrc: Tympanic SpO2: 94% Weight: 90.7 kg (200 lb) Patient was instructed to not get up on the exam table/exam chair until directed and assisted by their provider; patient is to remain seated in the chair/ wheelchair/ exam table/ exam chair for fall prevention and safety reasons. Patient is aware to have assistance to step down off exam table/exam chair with personnel. Patient voiced full comprehension of instructions. Patient states that he is not dizzy some shortness of breathe and lightheadedness. documented in this encounter Plan of Treatment Upcoming Encounters Date Type Department Care Team (Late st Contact Info) Description 04/25/2024 5:30 PM EST Anticoagulation Pharmacy, [address] [place] [address] [place] [address] 04/26/2024 9:15 AM EST Pharmacy Pharmacy Hematology Oncology [place] [address] [place] [address] [facility] Hem/Onc [address] [place] [address] 05/02/2024 10:40 AM EST Laboratory Laboratory [facility] [place] [address] [place] [phone] [place], Lab [facility] 200 [facility] [place] [address] 05/02/2024 11:45 AM EST Hem/Onc Treatment Hematology/Oncology Treatment, [place] [address] [facility] [place] [phone] 05/20/2024 6:20 PM EST Office Visit Family Medicine [address] [place] [phone] Rahul Tucker MD [address] [facility] [place] [address] 07/17/2024 11:15 AM EDT Procedure Only Urology, [facility] [address] [facility] [place] [address] Duglas Tadeo MD [address] [place] [id number] Scheduled Procedures Name Priority Associated Diagnoses Date/Ti [...] Advance Directives occurred with: Patient Care Teams Spirits Model Relationship Specialty Start Date End Date Rahul Tucker MD [address] [place] [address] [place] [address] PCP - General Family Medicine 08/03/18 documented as of this encounter"
--- OUTSIDE RECORDS SUMMARY | 2024-05-05 16:44 | External Medical Summary | Summary of Care ---
Author Name Unknown Organization [facility] Address [address] [place] [address] Phone [phone] Care Team Providers Care Glazier Artist Name Role Phone Rahul Tucker MD Primary Care Provide r Reason for Visit * Reason Onset Date Comments FYI 04/27/2024 Advice 04/27/2024 Med Request 04/27/2024 Encounter Details Date Type Department Care Team (Late st Contact Info) Description 04/27/2024 Telephone Family Medicine [address] [phone] Rahul Tucker MD [address] [place] [address] [place] [address] FYI; Advice; Med Request Allergies Active Allergy Reactions Criticality [...] (Prevnar) 06/17/2014 Pneumococcal Conjugate Vacci ne, 20-valent ([id number]) 02/15/2022 Pneumococcal Polysaccharide PPV23 (Pneumovax) 05/19/2016 Seasonal [...] Notes * Telephone Encounter - Silvia Louis [facility] - 04/29/2024 7:49 AM EST [...] for a fingerstick today at clinic, but [facility] called off-- need to call and changethat to an arm draw, which I will do a little later this morning. Silvia Louis, PharmD, BCACP Clinical Pharmacist Medication Therapy Disease Management 04/29/2024, 7:51 AM * Telephone Encounter - Fan Gonzalez OSA - 04/27/2024 3:36 PM EST Merry from [facility] called to [...] or if it couldbe arranged for the [facility] to draw the PT INRs. documented in this encounter Plan of Treatment Upcoming Encounters Date Type Department Care Team (Latest Contact Info) Description 04/29/2024 1:20 PM EST Anticoagulation Pharmacy, [address] [place] [address] [place] [address] GARY (acute kidney injury) (HCC)*; Light chain (AL) amyloidosis (HCC) 05/02/2024 9:00 AM EST Pharmacy Pharmacy Hematology Oncology [address] [address] [facility] Hem/Onc [facility] [place] [address] 05/02/2024 10:40 AM EST Laboratory Laboratory [facility] [address] [place] [phone] [place], Lab [address] [place] [address] 05/02/2024 11:45 AM EST Hem/Onc Treatment Hematology/Oncology Treatment, [place] [address] [facility] [place] [address] 05/20/2024 6:20 PM EST Office Visit Family Medicine [address] [place] [phone] Rahul Tucker MD [address] [place] [address] [place] [address] 07/17/2024 11:15 AM EDT Procedure Only Urology, [facility] 132 [facility] [place] [address] Duglas Tadeo MD [address] [place] [address] Scheduled Procedures Name Priority Associated Diagnoses Date/Ti [...] Advance Directives occurred with: Patient Care Teams Glazier Artist Relationship Specialty Start Date End Date Rahul Tucker MD [address] [place] [address] [place] [address] PCP - General Family Medicine 08/03/18 documented as of this encounter
--- OUTSIDE RECORDS SUMMARY | 2024-05-05 16:44 | External Medical Summary | Summary of Care ---
Author Name Unknown Organization [facility] Address [address] [place] [address] Phone [phone] Care Team Providers Care Nurse Prn Name Role Phone Rahul Tucker MD Primary Care Provide r Reason for Visit * Reason Onset Date Comments Medication Refill 04/26/2024 Encounter Details Date Type Department Care Team (Late st Contact Info) Description 04/26/2024 Refill Family Medicine [address] [phone] Rebecca Kaba, RN [address] [place] [address] Allergies Active Allergy Reactions Criticality Noted Date [...] bedtime. 90 Capsule 3 04/26/20 24 Active Gabapentin 300 MG Oral Capsule (Neurontin) Take 1 Capsule by mouth at bedtime. 04/22/20 24 024 Discontin ued(Refil l) documented as of [...] (Prevnar) 06/17/2014 Pneumococcal Conjugate Vacci ne, 20-valent ([id number]) 02/15/2022 Pneumococcal Polysaccharide PPV23 (Pneumovax) 05/19/2016 Seasonal [...] Author No 03/17/2024 6:46 PM Genoveva Vidal, RN * Do you have serious difficulty [...] encounter Miscellaneous Notes * Telephone Encounter - Jelena Hussein MD - 04/26/2024 2:06 PM EST Signed Prescriptions: Disp Refills Gabapentin 300 MG Oral Capsule (Neurontin) 90 Cap*3 Sig: Take 1 Capsule by mouth at bedtime. Authorizing Provider: JELENA HUSSEIN * Telephone Encounter - Cass Cruz CMA - 04/26/2024 11:53 AM EST Did you pend patient's preferred pharmacy and medication before forwarding?yes Pharmacy: [facility] Pending Prescriptions: Disp Refills Gabapentin 300 MG Oral Capsule (Neurontin)90 Cap*3 Sig: Take 1 Capsule by mouth at bedtime. Last Visit: 04/22/2024 (in office), Visit date not found (telemedicine) Next Visit: 05/20/2024 If no future appointments scheduled, and last appointment is greater than a year ago, please schedule patient for a follow-up appointment Last date the medication was ordered: historical med Is this request for a controlled substance?No Urine Drug Screen:No results found for this or any previous visit. Patient Phone Numbers Labs: Lab Results Component Value Date/Time CREAT 3.5 (H) 04/22/2024 02:18 PM CREAT 1.03 04/02/2019 12:00 AM CREAT 1.2 12/06/2017 12:26 PM POTASSIUM 4.2 04/22/2024 02:18 PM POTASSIUM 4.5 04/02/2019 12:00 AM POTASSIUM 4.7 08/03/2018 09:26 AM LDL 221 (H) 03/17/2024 10:16 PM LDL 76 02/04/2013 12:00 AM LDL 87 09/13/2012 08:40 AM LDLCALC 95 02/27/2018 12:00 AM ALT 35 04/22/2024 02:18 PM ALT 21 03/01/2017 12:00 AM HGBA1C 5.1 04/02/2019 12:00 AM * Telephone Encounter - Rebecca Kaba RN - 04/26/2024 11:28 AM EST [place]. Patient is in need of gabapentin refill. She is wondering if she could have a 90 day supply. Thank you! documented in this encounter Plan of Treatment Upcoming Encounters Date Type Department Care Team (Latest Contact Info) Description 04/26/2024 5:10 PM EST Anticoagulation Pharmacy, [address] [place] [address] [place] [address] Anticoagulation management encounter*; GARY (acute kidney injury) (HCC); Light chain (AL) amyloidosis (HCC) 04/29/2024 1:20 PM EST Anticoagulation Pharmacy, [address] [place] [address] [place] [address] 05/02/2024 9:00 AM EST Pharmacy Pharmacy Hematology Oncology [facility] [address] [place] [address] [facility] Hem/Onc [address] [place] [address] 05/02/2024 10:40 AM EST Laboratory Laboratory [address] [place] [address] [place] [phone] [place], Lab [address] [place] [address] 05/02/2024 11:45 AM EST Hem/Onc Treatment Hematology/Oncolog y Treatment, [place] [address] [place] [address] 05/20/2024 6:20 PM EST Office Visit Family Medicine [address] [place] [phone] Rahul Tucker MD [address] [place] [address] [place] [address] 07/17/2024 11:15 AM EDT Procedure Only Urology, [facility] [address] [place] [address] Duglas Tadeo MD [address] [place] [address] Scheduled Procedures Name Priority Associated Diagnoses Date/Ti [...] Advance Directives occurred with: Patient Care Teams Nurse Prn Relationship Specialty Start Date End Date Rahul Tucker MD [address] [place] [address] [place] [phone] PCP - General Family Medicine 08/03/18 documented as of this encounter
--- OUTSIDE RECORDS SUMMARY | 2024-05-05 16:44 | External Medical Summary | Summary of Care ---
Author Name Unknown Organization [facility] Address [address] [place] [address] Phone [phone] Care Team Providers Care Procurement Buyer Name Role Phone Rahul Tucker MD Primary Care Provide r Reason for Visit * Reason Comments Dosage Adjustment Via Phone (anticoag Cl inic) * Evaluate & Treat - Unlimited Visits (Within 3 days (urgent)) - Authorized Specialty Diagnoses / Procedures Referred By Contac t Referred To Contact ANTI-COAG CLINIC / Pharmacy Diagnoses Light chain (AL) amyloidosis (HCC) Brian Dyson MD [address] [place] [address] Phone: tel: fax: Referral ID Status Reason Start Date Expiration Date Visits Requested Visits Authorized [id number] Authorized Specialty Services Required 4 10/22/2024 99 99 Encounter Details Date Type Department Care Team (Latest Contact Info) Description 04/26/2024 5:10 PM EST Anticoagulation Pharmacy, [address] [place] [address] [place] [address] Anticoagulation management encounter*; GARY (acute kidney injury) (HCC); Light chain (AL) amyloidosis (HCC) Allergies Active Allergy Reactions Criticality Noted Date Comments Azithromycin Hives 12/10/2010 documented as of this encounter (statuses as of 04/26/2024) Medications Finasteride 5 MG Oral Tablet (Proscar) Take 1 Tablet by mouth in the morning. 90 Tablet 3 02/28/20 Active Latanoprost 0.005 % Ophthalmic Solution (Xalatan) [...] needed for Nausea. 30 Tablet 3 04/11/20 Active Ondansetron HCl 8 MG Oral Tablet [...] (Prevnar) 06/17/2014 Pneumococcal Conjugate Vacci ne, 20-valent ([id number]) 02/15/2022 Pneumococcal Polysaccharide PPV23 (Pneumovax) 05/19/2016 Seasonal [...] documented in this encounter Progress Notes * Brittney Villela RPh - 04/26/2024 7:13 AM EST Updated referral signed by requested provider. Patient to continue to follow up with [facility] as previously scheduled. Anticoagulant: Warfarin Indication: Prevention of VTE Goal: 2-3 Duration: Indefinite Brittney Mendoza RPh, PharmD Medication Therapy Disease Management 04/26/2024, 7:13 AM [phone] documented in this encounter Plan of Treatment Upcoming Encounters Date Type Department Care Team (Late st Contact Info) Description 04/29/2024 1:20 PM EST Anticoagulation Pharmacy, [address] [place] [address] [place] [address] 05/02/2024 9:00 AM EST Pharmacy Pharmacy Hematology Oncology [facility] [place] [address] [place] [address] [facility] [place] [facility] Hem/Onc [address] [place] [address] 05/02/2024 10:40 AM EST Laboratory Laboratory [facility] [address] [facility] [place] [phone] [place], Lab [facility] [place] [address] 05/02/2024 11:45 AM EST [facility] [phone] 05/20/2024 6:20 PM EST Office Visit Family Medicine [address] [phone] Rahul Tucker MD [address] [place], [place] [address] [address] 07/17/2024 11:15 AM EDT Procedure Only Urology, [facility] [address] [facility] [place] [address] Duglas Tadeo MD 27 [facility] [place] [address] Scheduled Procedures Name Priority Associated Diagnoses Date/Ti me ESOPHAGOGASTRODUODENOSCOPY ( EGD), FLEXIBLE, TRANSORAL, DIAGNOSTIC Recall Cirrhosis (HCC) Esophageal varices (HCC) Scheduled Referrals Name Type Priority Associated Diagnoses Orde r Schedule ANTI-COAGULATION REFERRAL OP Referral Within 3 days (urgent) Light chain (AL) amyloidosis (HCC) Ordered: 04/25/2024 Health Maintenance Due Date Last Done Comments [...] Advance Directives occurred with: Patient Care Teams Procurement Buyer Relationship Specialty Start Date End Date Rahul Tucker MD [address] [place] [address] [place] [address] PCP - General Family Medicine 08/03/18 documented as of this encounter
--- OUTSIDE RECORDS SUMMARY | 2024-05-05 16:44 | External Medical Summary | Summary of Care ---
Author Name Unknown Organization [facility] Address [address] [place] [address] Phone [phone] Care Team Providers Care Project Coordinator Name Role Phone Rahul Tucker MD Primary Care Provide r Reason for Referral * Evaluate & Treat - Unlimited Visits (Within 3 days (urgent)) - Authorized Specialty Diagnoses / Procedures Referred By David sharp Referred To Contact ANTI-COAG CLINIC / Pharmacy Diagnoses Light chain (AL) amyloidosis (HCC) Brian Dyson MD [address] [place] [address] Phone: tel: fax: Referral ID Status Reason Start Date Expiration Date Visits Requested Visits Authorized [id number] Authorized Specialty Services Required 4 10/22/2024 99 99 Question Answer Referral Priority Within 3 days (urgent) Where should this appointment be scheduled? [facility] Comments Anticoagulation referral for management of: Warfarin Indication and INR goal for Warfarin Management: VTE: Prevention of Venous Thromboembolism, INR Goal: 2.0 - 3.0 Relevant History: Cancer Enoxaparin bridging required? No Minimum frequency patient should be seen in person for medication management: as appropriate per clinical condition and patient status By my signature, I understand that my patient Dre Vera will have his medication therapy managed by the [facility] Medication Therapy Disease Management Clinic ([facility]) per established policies, procedures, and protocols. I also certify that this referral may serve as an initiation of service for the management of drug therapy in the above noted patient. [facility] providers will be responsible for scheduling patient visits, obtaining appropriate laboratory studies, and adjusting medication management therapy per patient's need, in addition to those roles spelled out in the clinic policy, procedures, and drug management protocols. I understand that the service provided by the [facility] is voluntary and have informed patient that they can refuse the service at their discretion. I am aware that the [facility] Clinic will provide me with a copy of the patient encounter via my [employer]. I authorize the [facility] Clinic to carry out these activities on my behalf. I consider this program to be a necessary part of the patient's medical care. Encounter Details Date Type Department Care Team (Late st Contact Info) Description 04/25/2024 Telephone Pharmacy, [address] [place] [address] Brittney Villela, [facility] [address] [facility] [place] [address] Allergies Active Allergy Reactions Criticality Noted Date [...] the morning. 60 Tablet 5 03/29/20 24 Active Additional Information Patient taking differently: 100 [...] (Prevnar) 06/17/2014 Pneumococcal Conjugate Vacci ne, 20-valent ([id number]) 02/15/2022 Pneumococcal Polysaccharide PPV23 (Pneumovax) 05/19/2016 Seasonal [...] encounter Miscellaneous Notes * Telephone Encounter - Brian Dyson MD - 04/25/2024 3:08 PM EST - ordered anticoagulation clinic consultations with oral Coumadin for DVT prophylaxis * Telephone Encounter - Britteny Villela [facility] - 04/25/2024 2:40 PM EST Updating patient's [facility] referral to reflect current anticoagulation management. Dr. Dyson, please sign pended referral for continued management of patient's medications by [facility] if agreeable. Thank you! Brittney Villela [facility] Clinical Pharmacist Medication Therapy Management Clinic 04/25/2024 2:42 PM Electronically signed by Brittney Villela [facility] at 04/25/2024 2:43 PM EST documented in this encounter Plan of Treatment Upcoming Encounters Date Type Department Care Team (Latest Contact Info) Description 04/25/2024 5:30 PM EST Anticoagulation Pharmacy, [address] [place] [address] [place] [address] Anticoagulation management encounter*; GARY (acute kidney injury) (HCC) 04/29/2024 1:20 PM EST Anticoagulation Pharmacy, [address] [place] [address] [place] [address] 05/02/2024 9:00 AM EST Pharmacy Pharmacy Hematology Oncology [facility] [address] [place] [address] [facility] Hem/Onc [address] [place] [address] 05/02/2024 10:40 AM EST Laboratory Laboratory [facility] [address] [place] [phone] [place], Lab [address] [place] [address] 05/02/2024 11:45 AM EST Hem/Onc Treatment Hematology/Oncolog y Treatment, [place] [address] [place] [address] 05/20/2024 6:20 PM EST Office Visit Family [address] [address] Rahul Tucker MD [address] [place] [address] [place] [address] 07/17/2024 11:15 AM EDT Procedure Only Urology, [facility] 132 [facility] [place] [address] Duglas Tadeo MD [address] [place] [address] Scheduled Procedures Name Priority Associated Diagnoses Date/Ti [...] kidney injury) (HCC) Acute kidney failure, unspecified GARY (acute kidney injury) (HCC)- Primary Acute kidney failure, unspecified Light chain (AL) amyloidosis (HCC) documented in this encounter Advance Directives * Full Code (Latest Code Status on File) Date Activated Date Inactivated Comments 03/17/2024 7:37 PM 03/29/2024 7:58 PM This order reflects the patients wishes and were consensually agreed upon. Question Answer Comments Discussion of Advance Directives occurred with: Patient Care Teams Project Coordinator Relationship Specialty Start Date End Date Rahul Tucker MD [address] [place] [address] [place] [address] PCP - General Family Medicine 08/03/18 documented as of this encounter
--- OUTSIDE RECORDS SUMMARY | 2024-05-05 16:44 | External Medical Summary | Summary of Care ---
Author Name Unknown Organization [facility] Address [address] [place] [address] Phone [phone] Care Team Providers Care Sword Swallower Name Role Phone Rahul Tucker MD Primary Care Provide r Reason for Visit * Reason Onset Date Comments Home Health 04/29/2024 Encounter Details Date Type Department Care Team (Late st Contact Info) Description 04/29/2024 Telephone Family Medicine [address] [phone] Rahul Tucker MD [address] [place] [address] [place] [address] Home Health Allergies Active Allergy [...] (Prevnar) 06/17/2014 Pneumococcal Conjugate Vacci ne, 20-valent ([id number]) 02/15/2022 Pneumococcal Polysaccharide PPV23 (Pneumovax) 05/19/2016 Seasonal [...] - 04/29/2024 9:19 AM EST [facility] to request [facility]R order to be faxed. There is a standing order in chart but needs it to have dates of draw to be on order. Per [facility] note today pt is to have INR done tomorrow. Please fax order with dates to have [facility] FAX [phone] documented in this encounter Plan of Treatment Upcoming Encounters Date Type Department Care Team (Latest Contact Info) Description 04/29/2024 1:20 PM EST Anticoagulation Pharmacy, [address] [place] [address] [place] [address] Anticoagulation management encounter*; GARY (acute kidney injury) (HCC); Light chain (AL) amyloidosis (HCC) 04/30/2024 7:00 AM EST Anticoagulation Pharmacy, [address] [place] [address] [place] [address] 05/02/2024 9:00 AM EST Pharmacy Pharmacy Hematology Oncology [place] [address] [place] [address] [facility] Hem/Onc [facility] [place] [address] 05/02/2024 10:40 AM EST Laboratory Laboratory [facility]ery [facility] [address] [place] [phone] [place], Lab Scenery [address] [place] [address] 05/02/2024 11:45 AM EST Hem/Onc Treatment Hematology/Oncolog y Treatment, [place] [address] [place] [phone] 05/02/2024 5:30 PM EST Anticoagulation Pharmacy, [address] [place] [address] [place] [address] 05/20/2024 6:20 PM EST Office Visit Family Medicine [address] [place] [phone] Rahul Tucker MD [address] [place] [address] [place] [address] 07/17/2024 11:15 AM EDT Procedure Only Urology, [address] [place] [address] Duglas Tadeo MD [address] [place] [address] Scheduled Procedures Name Priority Associated Diagnoses Date/Ti [...] Advance Directives occurred with: Patient Care Teams Sword Swallower Relationship Specialty Start Date End Date Rahul Tucker MD [address] [place] [address] [place] [phone] PCP - General Family Medicine 08/03/18 documented as of this encounter
--- OUTSIDE RECORDS SUMMARY | 2024-05-05 16:44 | External Medical Summary | Summary of Care ---
Author Name Unknown Organization [facility] Address [address] [facility] [address] Phone [phone] Care Team Providers Care Guide Foreign Tour Name Role Phone Rahul Tucker MD Primary Care Provide r Reason for Visit * Reason Comments Dosage Adjustment Via Phone (anticoag Cl inic) Encounter Details Date Type Department Care Team (Latest Contact Info) Description 04/25/2024 5:30 PM [facility] Anticoagulation Pharmacy, [address] [place] [address] [place] [address] Anticoagulation management encounter*; GARY (acute kidney injury) (HCC) Allergies Active [...] (Prevnar) 06/17/2014 Pneumococcal Conjugate Vacci ne, 20-valent ([id number]) 02/15/2022 Pneumococcal Polysaccharide PPV23 (Pneumovax) 05/19/2016 Seasonal [...] in this encounter Progress Notes * Brittney [place]la, [facility] - 04/25/2024 12:35 PM EST Images from the original note were not included. Medication Therapy Disease Management - Anticoagulation Patient: Dre Vera | : 1950 Subjective Contacts Contact Date/Time Type Contact Phone/Fax 04/25/2024 02:33 PM EST Phone (Outgoing) Bina Vera (Emergency Contact) [phone] (M) Patient-Reported Symptoms: Patient Findings Negatives: Signs/symptoms of thrombosis, Signs/symptoms of bleeding, Change in health, Change in alcohol use, Change in activity, Upcoming invasive procedure, Missed doses, Extra doses, Change in medications, Change in diet/appetite, Bruising Objective Current Warfarin Dose As of 04/25/2024 Warfarin maintenance plan: No maintenance plan INR Result As of 04/25/2024 INR goal: 2.0-3.0 INR used for dosin.4 (04/25/2024) Assessment & Plan Warfarin Plan As of 04/25/2024 Full warfarin instructions: 04/25: 5 mg; 04/26: 2.5 mg; 04/27: 5 mg; 04/28: 5 mg Next INR check: 04/29/2024 Repeat PT/INR in 4 day(s) Weekly dose: establishing Additional Dosing Information: Patient had OV with heme/onc today. TE sent requesting updated referral. I spent a total of 10-19 minutes (exact time 15 mins) on the date of service in preparation, delivery, and documentation of the care provided to Dre Vera excluding any time spent in the performance of separately billed services or time spent by another provider/QHP. Brittney Villela [facility] Clinical Pharmacist 04/25/2024, 12:35 PM documented in this encounter Plan of Treatment Upcoming Encounters Date Type Department Care Team (Late st Contact Info) Description 04/29/2024 1:20 PM EST Anticoagulation Pharmacy, [address] [place] [address] [place] [address] 05/02/2024 9:00 AM EST Pharmacy Pharmacy Hematology Oncology [address] [address] [facility] Hem/Onc [facility] [place] [address] 05/02/2024 10:40 AM EST Laboratory Laboratory [facility] [address] [place] [phone] [place], Lab Scenery [address] [facility] [place] [address] 05/02/2024 11:45 AM EST Hem/Onc Treatment Hematology/Oncology Treatment, [place] [facility] [phone] 05/20/2024 6:20 PM EST Office Visit Family Medicine [address] [place] [phone] Rahul Tucker MD [address] [place] [address] [place] [address] 07/17/2024 11:15 AM EDT Procedure Only Urology, [facility] 132 [facility] [place] [id number] Duglas Tadeo MD [address] [place] [address] Scheduled Procedures Name Priority Associated Diagnoses Date/Ti [...] kidney failure, unspecified documented in this encounter Advance Directives * Full Code (Latest Code Status on File) Date Activated Date Inactivated Comments 03/17/2024 7:37 PM 03/29/2024 7:58 PM This order reflects the patients wishes and were consensually agreed upon. Question Answer Comments Discussion of Advance Directives occurred with: Patient Care Teams Guide Foreign Tour Relationship Specialty Start Date End Date Rahul Tucker MD [address] [place] [address] [place] [address] PCP - General Family Medicine 08/03/18 documented as of this encounter"
--- OUTSIDE RECORDS SUMMARY | 2024-05-05 16:45 | External Medical Summary | Summary of Care ---
Author Name Unknown Organization [facility] Address [address] [place] [address] Phone [phone] Care Team Providers Care Jewelry Store Manager Name Role Phone Rahul Tucker MD Primary Care Provide r Reason for Visit * Reason Onset Date Comments Advice 04/18/2024 Encounter Details Date Type Department Care Team (Late st Contact Info) Description 04/18/2024 Telephone Family Medicine [address] [phone] Rahul Tucker MD [address] [place] [address] [place] [address] Advice Allergies Active Allergy Reactions Criticality Noted Date Comments Azithromycin Hives 12/10/2010 documented as of this encounter (statuses as of 04/23/2024) Medications Finasteride 5 MG Oral Tablet (Proscar) Take 1 Tablet by mouth in the morning. 90 Tablet 3 4 Active Latanoprost 0.005 % Ophthalmic Solution (Xalatan) Instill into eye. Active Aspirin 81 MG Oral Tablet Delayed Release Take 1 Tablet by mouth in the morning. Active Atorvastatin Calcium 40 MG Oral Tablet (Lipitor) Take 1 Tablet by mouth every afternoon. 30 Tablet 5 4 Active Additional Information Patient not taking.Reported on 04/18/2024 Torsemide 20 MG Oral Tablet (Demadex) Take 2 Tablets by mouth in the morning. 60 Tablet 5 4 Active Additional Information Patient taking differently: 100 mgOral Daily(AM), Reported on 04/22/2024 Bisacodyl 5 MG Oral Tablet Delayed Release (Dulcolax) Take 1 Tablet by mouth twice per day (morning, before bedtime). 60 Tablet 5 4 Active Additional Information Patient not taking.Reported on 04/18/2024 Polyethylene Glycol 3350 17 GM/SCOOP Oral Powder (Miralax) Mix and dissove one capful (to fill line) in 8 oz of juice or water and take by mouth twice per day (morning, before bedtime). 238 g 4 Active Sennosides-Docus ate Sodium 8.6-50 MG Oral Tablet (Senokot-S) Take 1 Tablet by mouth in the morning and 1 Tablet at noon and 1 Tablet before bedtime. 90 Tablet 5 4 Active Additional Information Patient not taking.Reported on 04/22/2024 LiquaCel Oral Liquid Take 30 mL by mouth in the morning and 30 mL before bedtime. 1920 mL 11 4 03/24/20 25 Active Additional Information Patient not taking.Reported on 04/22/2024 Prochlorperazine Maleate 10 MG Oral Tablet (Compazine)Indic ations:Light chain (AL) amyloidosis (HCC) Take 1 Tablet by mouth every 6 hours as needed for Nausea. 30 Tablet 3 4 Active Ondansetron HCl 8 MG Oral Tablet (Zofran)Indicati ons:Light chain (AL) amyloidosis (HCC) Take 1 Tablet by mouth every 8 hours as needed for Nausea. 30 Tablet 2 4 Active dexAMETHasone 4 MG Oral Tablet (Decadron)Indica tions:Light chain (AL) amyloidosis (HCC) Take 5 tablets by mouth once a week prior to treatment for 3 weeks, then 10 tablets weekly after. 55 Tablet 4 Active Acyclovir 400 MG Oral Tablet (Zovirax)Indicat ions:Light chain (AL) amyloidosis (HCC) Take 1 Tablet by mouth in the morning and 1 Tablet before bedtime. 180 Tablet 1 4 Active Omeprazole 20 MG Oral Capsule Delayed Release (PriLOSEC)Indica tions:Light chain (AL) amyloidosis (HCC) Take 1 Capsule by mouth in the morning. 30 Capsule 1 4 Active Midodrine HCl 10 MG Oral Tablet (Proamatine) Take 1 Tablet by mouth in the morning and 1 Tablet at noon and 1 Tablet in the evening. Active cycloPHOSphamide 50 MG Oral Capsule (Cytoxan)Indicat ions:Amyloidosis , unspecified type (HCC) Take 6 capsules by mouth once a week. 24 Capsule 5 04/19/2024 11:58 AM EST 4 Active documented as of this encounter (statuses as of 04/23/2024) Active Problems Problem Noted Date Diagnosed Date [...] as of this encounter (statuses as of 04/23/2024) Resolved Problems Problem Noted Date Diagnosed Date Resolved Date CKD (chronic kidney disease) stage 5, GFR less than 15 ml/min 03/28/2024 04/22/2024 Carpal tunnel syndrome 06/17/201402/08 Allergic rhinitis 06/17/2014 02/08/2018 Adjustment disorder with depressed mood 12/10/2013 07/20/2017 Eczema 06/22/2012 07/20/2017 Epileptic seizure 12/10/2010 08/16/2018 documented as of this encounter (statuses as of 04/23/2024) Immunizations Name Administration Dates Next Due Pneumococcal Conjugate Vacc, 13 Valent (Prevnar) 06/17/2014 Pneumococcal Conjugate Vacci ne, 20-valent ([id number]) 02/15/2022 Pneumococcal Polysaccharide PPV23 (Pneumovax) 05/19/2016 Seasonal [...] Assessment Author No 03/17/2024 6:46 PM Genoveva Viadl RN * Because of a physical, mental, [...] encounter Miscellaneous Notes * Telephone Encounter - Darby Mayorga MD - 04/23/2024 12:47 PM EST Noted and appreciated; midodrine already on med list. * Telephone Encounter - Alem Beverly RN - 04/23/2024 9:59 AM EST TE with Moira at [facility] and is aware that pt is to restart Midodrine TID. TE with pt's who states pt is taking Torsemide 100mg and tolerating it better at bedtime. reports that primary complaints is that he has poor pain control. PCP did order increased Gabapentin doses but feels this is not effective. I encouraged her to reach out to surgical office as he is having phantom limb pain. states that his pain was controlled when he was on Oxycodone. Dr Kiel DE JESUS. * Telephone Encounter - Darby Mayorga MD - 04/22/2024 4:26 PM EST Pls see 04/19 note where I started him on coumadin after d/w hematology ; LIZA OK to resume midodrine 10 mg tid >>>pls clarify torsemide dose >> 40 mg daily very different than 10 mg daily (? If this reflects d/c summary from [facility] or not; unable to access this) >> if dizzy despite resuming midodrine, suggest lower torsemide dose to 60 mg daily He is on dialysis so we can remove fluid at HD as well Neph nurse >> pls contact [facility] in AM and we will review BP/meds/weights to optimize; pls reach out to on above as well Dr Jag DE JESUS * Telephone Encounter - Rahul Tucker MD - 04/18/2024 3:23 PM EST I have not seen him for any of this yet and have not started nor stopped any of these medications. I was relaying the info I had available from his hospital D/C summary. I have no records from [facility] to review. I saw the note about contacting the case repairer at [facility] about the prescription for Lovenox orheparin because he should have been sent home with it and it been on his discharge medication list if he were to be taking it. I don't know what he was on because it is not on any of his Epic med lists that I have available. His heparin from the hospital is marked as "discontinued" on 03/29/24. His midodrine was also discontinued when he was discharged from [facility]. I will defer to nephrology if he is to continue as it not a medication that I generally manage and the info I have states hewas to stop it. Will route to Dr. Dyson and Dr. Mayorga for any insight they may provide. * Telephone Encounter - Rahul Tucker MD - 04/18/2024 2:06 PM EST The midodrine was stopped by [facility] due to hypertension so he should not be taking that. There is no mention of DVT in hospital records. 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 Arterial clots are not treated like at DVT so heparin is not needed now. Gabapentin can accumulate in patient with renal failure so have to be careful but he could go up to100 mg twice a day and see how that goes. * Telephone Encounter - Rebecca Kaba RN - 04/18/2024 1:46 PM EST [place]. Called and spoke with patient .She asked me to talk to the home health nurse that was at the house. Spoke with Gala from [facility]. She was wondering about patients medications. She states that patient was not sent home with any heparin from [facility]. She is concerned because patient had DVT'S inpatient. Was also wondering if we could increase patients gabapentin as he is having phantom pain from recent above the knee amputation and current dose is not helping. She was also wondering about patients midodrine. Patient has been having low blood pressure and getting dizzy. Medication was not on discharge list and [facility] was wondering if its ok to continuetaking. Patient is still experiencing dizziness. Please advise. documented in this encounter Plan of Treatment Upcoming Encounters Date Type Department Care Team (Late st Contact Info) Description 04/25/2024 10:45 AM EST Office Visit Hematology/Oncology [facility] [address] [place] [phone] Brian Dyson MD [address] [place] [address] 04/25/2024 11:30 AM EST Laboratory Laboratory [facility] 200 [facility] [place] [phone] [facility] [address] [place] [address] 04/25/2024 5:30 PM EST Anticoagulation Pharmacy, [address] [place] [address] [place] [address] 04/26/2024 9:15 AM EST Pharmacy Pharmacy Hematology Oncology [address] [address] [facility] Hem/[place] [facility] [place] [address] 05/20/2024 6:20 PM EST Office Visit Family Medicine [address] [place] [phone] Rahul Tucker MD [address] [place] [address] [place] [address] 07/17/2024 11:15 AM EDT Procedure Only Urology, [facility] [address] [facility] [place] [address] Duglas Tadeo MD [address] [place] [address] Scheduled Procedures Name Priority Associated Diagnoses Date/Ti [...] 06/03/2015 Colorectal Cancer Screening Discontinued Pneumococcal Vaccine: 65+ Years Completed 02/15/2022, 05/18/2020, [...] as of this encounter Visit Diagnoses Diagnosis Orthostatic hypotension- Primary documented in this encounter Advance Directives * Full Code (Latest Code Status on File) Date Activated Date Inactivated Comments 03/17/2024 7:37 PM 03/29/2024 7:58 PM This order reflects the patients wishes and were consensually agreed upon. Question Answer Comments Discussion of Advance Directives occurred with: Patient Care Teams Jewelry Store Manager Relationship Specialty Start Date End Date Rahul Tucker MD [address] [place] [address] [place] [phone] PCP - General Family Medicine 08/03/18 documented as of this encounter
--- OUTSIDE RECORDS SUMMARY | 2024-05-05 16:45 | External Medical Summary | Summary of Care ---
Author Name Unknown Organization [facility] Address [address] [place] [address] Phone [phone] Care Team Providers Care Supermarket Manager Name Role Phone Rahul Tucker MD Primary Care Provide r Reason for Visit * Reason Comments Outpatient Testing Encounter Details Date Type Department Care Team (Late st Contact Info) Description 04/22/2024 2:20 PM EST Laboratory Laboratory [address] [place] [phone] [place] [address] Light chain (AL) amyloidosis (HCC) Allergies Active Allergy Reactions Criticality Noted Date Comments Azithromycin Hives 12/10/2010 documented as of this encounter (statuses as of 04/22/2024) Medications Finasteride 5 MG Oral Tablet (Proscar) Take 1 Tablet by mouth in the morning. 90 Tablet 3 02/28/20 24 Active Latanoprost 0.005 % Ophthalmic Solution (Xalatan) Instill into eye. Ac tive Aspirin 81 MG Oral Tablet Delayed Release Take 1 Tablet by mouth in the morning. Active Gabapentin 100 MG Oral Capsule (Neurontin) Take 1 Capsule by mouth at bedtime. 30 Capsule 5 03/29/20 24 Active Atorvastatin Calcium 40 MG Oral Tablet (Lipitor) Take 1 Tablet by mouth every afternoon. 30 Tablet 5 03/29/20 24 Active Additional Information Patient not taking.Reported on 04/18/2024 Torsemide 20 MG Oral Tablet (Demadex) Take 2 Tablets by mouth in the morning. 60 Tablet 5 03/29/20 Active Additional Information Patient taking differently: 100 mgOral Daily(AM), Reported on 04/18/2024 Bisacodyl 5 MG Oral Tablet [...] Additional Information Patient not taking.Reported on 04/18/2024 LiquaCel Oral Liquid Take 30 mL by mouth in the morning and 30 mL before bedtime. 1920 mL 03/29/20 025 Active Additional Information Patient not taking.Reported on 04/18/2024 Prochlorperazin e Maleate 10 MG Oral Tablet [...] clinic. 30 Tablet 5 04/19/20 24 Active documented as of this encounter (statuses as of 04/22/2024) Active Problems Problem Noted Date Diagnosed Date Amyloidosis, unspecified 04/17/2024 GARY (acute kidney injury) 03/29/2024 CKD (chronic kidney disease) stage 5, GFR less than 15 ml/min 03/28/2024 Light chain (AL) amyloidosis 03/25/2024 ESRD (end [...] as of this encounter (statuses as of 04/22/2024) Resolved Problems Problem Noted Date Diagnosed Date Resolved Date Carpal tunnel syndrome 06/17/201402/08 Allergic rhinitis 06/17/2014 02/08/2018 Adjustment disorder with depressed mood 12/10/2013 07/20/2017 Eczema 06/22/2012 07/20/2017 Epileptic seizure 12/10/2010 08/16/2018 documented as of this encounter (statuses as of 04/22/2024) Immunizations Name Administration Dates Next Due Pneumococcal Conjugate Vacc, 13 Valent (Prevnar) 06/17/2014 Pneumococcal Conjugate Vacci ne, 20-valent ([id number]) 02/15/2022 Pneumococcal Polysaccharide PPV23 (Pneumovax) 05/19/2016 Seasonal [...] Genoveva Cardona RN documented in this encounter Plan of Treatment Upcoming Encounters Date Type Department Care Team (Latest Contact Info) Description 04/22/2024 3:20 PM EST Anticoagulation Pharmacy, [address] [place] [address] [place] [address] 04/22/2024 5:40 PM EST Office Visit [address] [phone] Rahul Tucker MD [address] [place] [address] [place] [address] Hospital discharge follow-up*; Light chain (AL) amyloidosis (HCC); 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); ESRD (end stage renal disease) (HCC); Peripheral vascular disease (HCC); Hypotension, unspecified hypotension type 04/25/2024 10:45 AM EST Office Visit Hematology/Oncology [facility] [address] [facility] [place] [phone] Brian Dyson MD [address] [facility] [place] [address] 04/26/2024 9:15 AM EST Pharmacy Pharmacy Hematology Oncology [place] [address] [place] [address] [facility] Hem/Onc [facility] [place] [address] 05/20/2024 6:20 PM EST Office Visit Family [address] [place] [phone] Rahul Tucker MD [address] [place] [address] [place] [address] 07/17/2024 11:15 AM EDT Procedure Only Urology, [facility] 132 [facility] [place] [address] Duglas Tadeo MD [address] [place] [address] Pending Results Name Type Priority Associated Diagnoses Date /Time CBC WITH WBC DIFFERENTIAL Lab STAT Light chain (AL) amyloidosis (HCC) 04/22/2024 2:18 PM EST COMPREHENSIVE METABOLIC PANEL Lab STAT Light chain (AL) amyloidosis (HCC) 04/22/2024 2:18 PM EST IMMUNOGLOBULIN QUANTITATIVE Lab STAT Light chain (AL) amyloidosis (HCC) 04/22/2024 2:18 PM EST SERUM FREE LIGHT CHAINS Lab STAT Light chain (AL) amyloidosis (HCC) 04/22/2024 2:18 PM EST SERUM PROTEIN ELECTROPHORESIS REFLEX PROFILE Lab STAT Light chain (AL) amyloidosis (HCC) 04/22/2024 2:18 PM EST URINALYSIS, REFLEX TO MICROSCOPIC Lab STAT Light chain (AL) amyloidosis (HCC) 04/22/2024 2:18 PM EST CBC Lab STAT Light chain (AL) amyloidosis (HCC) 04/22/2024 2:18 PM EST DIFFERENTIAL, AUTOMATED Lab STAT Light chain (AL) amyloidosis (HCC) 04/22/2024 2:18 PM EST Scheduled Procedures Name Priority Associated [...] as of this encounter Visit Diagnoses Diagnosis Hospital discharge follow-up- Primary Other follow-up examination 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 Question Answer Comments Discussion of Advance Directives occurred with: Patient Care Teams Supermarket Manager Relationship Specialty Start Date End Date Rahul Tucker MD [address] [place] [address] [place] [address] PCP - General Family Medicine 08/03/18 documented as of this encounter
--- OUTSIDE RECORDS SUMMARY | 2024-05-05 16:45 | External Medical Summary | Summary of Care ---
Author Name Unknown Organization [facility] Address [address] [facility] [address] Phone [phone] Care Team Providers Care Seamer Elastic Band Name Role Phone Rahul Tucker MD Primary Care Provide r Reason for Visit * Reason Comments Dosage Adjustment In Person (Anticoag Cl inic) Encounter Details Date Type Department Care Team (Latest Contact Info) Description 04/22/2024 3:20 PM [facility] Anticoagulation Pharmacy, [address] [place] [address] [place] [address] Anticoagulation management encounter*; GARY (acute kidney injury) [...] in the morning. 30 Capsule 1 04/16/20 Active Midodrine HCl 10 MG Oral Tablet [...] by anticoagulation clinic. 30 Tablet 5 04/19/20 Active Gabapentin 300 MG Oral Capsule (Neurontin) Take 1 Capsule by mouth at bedtime. 04/22/20 Active Gabapentin 100 MG Oral Capsule (Neurontin) Take 1 capsule in AM and 1 capsule in afternoon. 04/22/20 Active documented as of this encounter (statuses [...] (Prevnar) 06/17/2014 Pneumococcal Conjugate Vacci ne, 20-valent ([id number]) 02/15/2022 Pneumococcal Polysaccharide PPV23 (Pneumovax) 05/19/2016 Seasonal [...] Progress Notes * Brittney Villela RPh - 04/22/2024 3:23 PM EST Images from the original note were not included. Medication Therapy Disease Management - Anticoagulation Patient: Dre Vera | : 1950 Patient presents with spouse Subjective Patient-Reported Symptoms: Patient Findings Negatives: Signs/symptoms of thrombosis, Signs/symptoms of bleeding, Change in health, Change in alcohol use, Change in activity, Upcoming invasive procedure, Missed doses, Extra doses, Change in medications, Change in diet/appetite, Bruising Objective Current Warfarin Dose As of 04/22/2024 Warfarin maintenance plan: No maintenance plan INR Result As of 04/22/2024 INR goal: 2.0-3.0 INR used for dosin.3 (04/22/2024) Assessment & Plan Warfarin Plan As of 04/22/2024 Full warfarin instructions: 04/22: 5 mg; 04/23: 2.5 mg; 04/24: 2.5 mg Next INR check: 04/25/2024 Repeat PT/INR in 3 day(s) Weekly dose: establishing Additional Dosing Information: I spent a total of 10-19 minutes (exact time 15 mins) on the date of service in preparation, delivery, and documentation of the care provided to Dre Vera excluding any time spent in the performance of separately billed services or time spent by another provider/QHP. Brittney Villela RPh Clinical Pharmacist 04/22/2024, 3:23 PM documented in this encounter Plan of Treatment Upcoming Encounters Date Type Department Care Team (Late st Contact Info) Description 04/25/2024 10:45 AM EST Office Visit Hematology/Oncology [facility] [place] [address] [place] [phone] Brian Dyson MD [address] [place] [address] 04/25/2024 11:30 AM EST Laboratory [facility] [address] [place] [phone] [place], [facility] [address] [place] [address] 04/25/2024 5:30 PM EST Anticoagulation Pharmacy, [address] [place] [address] [place] [address] 04/26/2024 9:15 AM EST Pharmacy Pharmacy Hematology Oncology [facility] [address] [place] [address] [facility] Hem/Onc [address] [place] [address] 05/20/2024 6:20 PM EST Office Visit Family Medicine [address] [place] [phone] Rahul Tucker MD [address] [place] [address] [place] [address] 07/17/2024 11:15 AM EDT Procedure Only Urology, [facility] [address] [facility] [place] [address] Duglas Tadeo MD [address] [place] [address] [...] Procedure Name Priority Date/Time Associated Diagnosis Comments INR FINGERSTICK, POINT OF CARE STAT 04/22/2024 3:32 PM EST GARY (acute kidney injury) (HCC) Anticoagulation management encounter documented in this encounter Results * INR FINGERSTICK, POINT OF CARE (04/22/2024 3:32 PM EST) Fingerstick INR 1.3 INR 7:47 AM EST [id number] 04/22/2024 3:32 PM EST 04/23/2024 7:47 AM EST Narrative [facility]-00 - 04/23/2024 7:47 AM EST Therapeutic ranges for non-operative patients: Prophylaxsis/treatment of DVT: (Range:2.0-3.0) Treatment of pulmonary embolism:(Range:2.0-3.0) Prevention of systemic embolism from: -tissue heart valves -acute myocardial infarction -valvular heart disease -atrial fibrillation (Range: 2.0-3.0) Mechanical prosthetic valves: (Range: 2.5-3.5) Brittney Villela [facility] LAB POINT OF CARE TEST DOCKED DEVICE UNSOLICITED RESULTS Final Result [facility] [address] [place] [address] [place] [address] documented in this encounter Visit Diagnoses Diagnosis [...] Advance Directives occurred with: Patient Care Teams Seamer Elastic Band Relationship Specialty Start Date End Date Rahul Tucker MD [address] [place] [address] [place] [address] PCP - General Family Medicine 08/03/18 documented as of this encounter"
--- OUTSIDE RECORDS SUMMARY | 2024-05-05 16:45 | External Medical Summary ---
Author Name Unknown Address Unknown Organization K09:[facility] [place] [address] Laboratory Report Ordering Provider Test Date Status CL [place] 04/25/2024 11:42:22 Final Warfarin Therapy
INR: 2 .0-3.0 conventional anticoagulation
INR: 2.5- 3.5 high intensity anticoagulation Observation Date Value Abnormality Reference (Units ) Status PT 04/25/2024 11:42:22 17.7 Above high normal 11 .6-15.2 (seconds) Final INR 04/25/2024 11:42:22 1.4 Above high normal 0. 8-1.2 Final Performing Location [facility] [place] [address]
--- OUTSIDE RECORDS SUMMARY | 2024-05-05 16:45 | External Medical Summary | Summary of Care ---
Author Name Unknown Organization [facility] Address [address] [place] [address] Phone [phone] Care Team Providers Care Hanger Off Name Role Phone Rahul Tucker MD Primary Care Provide r Reason for Visit * Reason Onset Date Comments Precert Future 04/11/2024 DaraVd + Oral Cy toxan Encounter Details Date Type Department Care Team (Late st Contact Info) Description 04/11/2024 Telephone Hematology/Oncology [facility] 200 [facility] [place] [address] Lynnette Dyson MD [address] [place] [facility] [place] [address] Precert Future (DaraVd + Oral Cytoxan) Allergies [...] (Prevnar) 06/17/2014 Pneumococcal Conjugate Vacci ne, 20-valent ([id number]) 02/15/2022 Pneumococcal Polysaccharide PPV23 (Pneumovax) 05/19/2016 Seasonal [...] encounter Miscellaneous Notes * Telephone Encounter - Genoveva Diez RN - 04/25/2024 10:50 AM EST Scheduling: after patient is done seeing Dr [...] oncology plan for oral cyclophosphamide. Thank you. MT - fyi. * Telephone Encounter - Alida Rios RN - 04/11/2024 3:09 PM EST Orders received, plan built and routed. Awaiting auth. -Chemo Consent: 04/10/24 -Chemo Education: 04/12/24 -Port Placement: N/A -Standing Lab orders placed: CBCD,CMP, [place], SPEP, IG Quant ---- Also T&S for patient to have completed at [facility] prior to starting. -Medications Pended: Decadron, Zofran, Compazine, Acyclovir -Hep B Labs: Completed 03/17/24 documented in this encounter Plan of Treatment Upcoming Encounters Date Type Department Care Team (Late st Contact Info) Description 04/25/2024 11:30 AM EST Laboratory Laboratory [address] [place] [address] [place] [phone] [place], Lab Scene [address] [place] [address] 04/25/2024 5:30 PM EST Anticoagulation Pharmacy, [address] [place] [address] [place] [address] 04/26/2024 9:15 AM EST Pharmacy Pharmacy Hematology Oncology [address] [address] [facility] Hem/Onc [address] [place] [address] 05/20/2024 6:20 PM EST Office Visit Family Medicine [address] [place] [phone] Rahul Tucker MD [address] [place] [address] [place] [address] 07/17/2024 11:15 AM EDT Procedure Only Urology, [facility] 132 [facility] [place] [address] Duglas Tadeo MD [address] [place] [address] Scheduled Orders Name Type Priority Associated Diagnoses [...] LAB BLOOD ORDERABLES Final Res ult [facility] [address] [place] [address] * (ABNORMAL) SERUM FREE LIGHT CHAINS (04/22/2024 2:18 PM EST) Pathologist [facility] [place] Free Light Chains, Serum 308.00(H) 3.30 - 19.40 mg/L 04/23/2024 3:16 PM EST [facility]ORY [facility] Lambda Free Light Chains, Serum 143.09(H) 5.71 - 26.30 mg/L 04/23/2024 3:16 PM EST [facility] [place] Lambda Free [place] Chains Ratio 2.15(H) 0.26 - 1.65 04/23/2024 3:16 PM EST [facility] Blood Venous blood specimen / Unknown Venipuncture / Unknown 04/22/2024 2:18 PM EST 04/22/2024 2:18 PM EST Lynnette Dyson MD LAB BLOOD ORDERABLES Final Res ult Performing Organization Address [facility] Co de Phone Number [facility]ORY [facility] [address] [place] [address] * (ABNORMAL) IMMUNOGLOBULIN QUANTITATIVE (04/22/2024 2:18 PM EST) IgG 2,137(H) 700 - 1,600 mg/dL 04/23/2024 12:21 AM EST [facility] IgA 305 70 - 400 mg/dL 04/23/2024 12:21 AM EST [facility] IgM 99 40 - 230 mg/dL 04/23/2024 12:21 AM EST LAB[facility]ORY [facility] Blood Venous blood specimen / Unknown Venipuncture / Unknown 04/22/2024 2:18 PM EST 04/22/2024 2:18 PM EST Lynnette Dyson MD LAB BLOOD ORDERABLES Final Res ult Performing Organization Address [facility] de Phone Number [facility]ORY [facility] [address] [place] [address] * (ABNORMAL) COMPREHENSIVE METABOLIC PANEL (04/22/2024 2:18 PM EST) BUN 43(H) 6 - 20 mg/dL 04/23/2024 1:42 AM EST LAB[facility]ORY [facility] CREATININE 3.5(H) 0.6 - 1.2 mg/dL 04/23/2024 [...] LAB BLOOD ORDERABLES Final Res ult [facility] [address] [place] [address] * TYPE AND SCREEN (04/12/2024) [...] Advance Directives occurred with: Patient Care Teams Hanger Off Relationship Specialty Start Date End Date Rahul Tucker MD [address] [place] [address] [place] [phone] PCP - General Family Medicine 08/03/18 documented as of this encounter
--- OUTSIDE RECORDS SUMMARY | 2024-05-05 16:45 | External Medical Summary | Summary of Care ---
Author Name Unknown Organization [facility] Address [address] [place] [address] Phone [phone] Care Team Providers Care Positive Printer Operator Name Role Phone Rahul Tucker MD Primary Care Provide r Reason for Visit * Reason Comments Outpatient Testing Encounter Details Date Type Department Care Team (Late st Contact Info) Description 04/22/2024 2:20 PM EST Laboratory Laboratory [address] [place] [phone] [place] [address] [place] chain ([place]) amyloidosis (HCC) Allergies Active [...] (Prevnar) 06/17/2014 Pneumococcal Conjugate Vacci ne, 20-valent ([id number]) 02/15/2022 Pneumococcal Polysaccharide PPV23 (Pneumovax) 05/19/2016 Seasonal [...] Description 04/22/2024 3:20 PM EST Anticoagulation Pharmacy, [address] [place] [address] [place] [address] 04/22/2024 5:40 PM EST Office Visit [address] [phone] Rahul Tucker MD [address] [place] [address] [place] [address] Hospital discharge follow-up*; Light chain (AL) amyloidosis (HCC); 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); ESRD (end stage renal disease) (HCC); Peripheral vascular disease (HCC); Hypotension, unspecified hypotension type 04/25/2024 10:45 AM EST Office Visit Hematology/Oncology [facility] 200 [facility] [place] [phone] Brian Dyson MD 200 [facility] [place] [address] 04/26/2024 9:15 AM EST Pharmacy Pharmacy Hematology Oncology [place] [address] [place] [address] [facility] Hem/Onc [facility] [place] [address] 05/20/2024 6:20 PM EST Office Visit Family [address] [place] [phone] Rahul Tucker MD [address] [place] [address] [place] [address] 07/17/2024 11:15 AM EDT Procedure Only Urology, [facility] 132 [facility] [place] [address] Duglas Tadeo MD [address] [place] [address] Pending Results Name Type Priority Associated Diagnoses [...] Advance Directives occurred with: Patient Care Teams Positive Printer Operator Relationship Specialty Start Date End Date Rahul Tucker MD [address] [place] [address] [place] [address] PCP - General Family Medicine 08/03/18 documented as of this encounter
--- OUTSIDE RECORDS SUMMARY | 2024-05-05 16:45 | External Medical Summary | Summary of Care ---
Author Name Unknown Organization [facility] Address [address] [place] [address] Phone [phone] Care Team Providers Care Table Runner Name Role Phone Rahul Tucker MD Primary Care Provide r Reason for Visit * Reason Onset Date Comments Precert Future 04/11/2024 DaraVd + Oral Cy toxan Encounter Details Date Type Department Care Team (Late st Contact Info) Description 04/11/2024 Telephone Hematology/Oncology [facility] 200 [facility] [place] [address] Lynnette Dyson MD [address] [facility] [address] Precert Future (DaraVd + Oral Cytoxan) Allergies [...] by mouth at bedtime. 30 Capsule 5 03/29/2024 Active Atorvastatin Calcium 40 MG Oral Tablet (Lipitor) Take 1 Tablet by mouth every afternoon. 30 Tablet 5 03/29/2024 Active Torsemide 20 MG Oral Tablet (Demadex) Take 2 Tablets by mouth in the morning. 60 Tablet 5 03/29/2024 Active Bisacodyl 5 MG Oral Tablet Delayed Release (Dulcolax) Take 1 Tablet by mouth twice per day (morning, before bedtime). 60 Tablet 5 03/29/2024 Active Polyethylene Glycol 3350 17 GM/SCOOP Oral Powder (Miralax) Mix and dissove one capful (to fill line) in 8 oz of juice or water and take by mouth twice per day (morning, before bedtime). 238 g 03/29/2024 Active Sennosides-Docu sate Sodium 8.6-50 MG Oral Tablet (Senokot-S) Take 1 Tablet by mouth in the morning and 1 Tablet at noon and 1 Tablet before bedtime. 90 Tablet 5 03/29/2024 Active LiquaCel Oral Liquid Take 30 mL by mouth in the morning and 30 mL before bedtime. 1920 mL 11 03/29/2024 Active documented as of this encounter (statuses as of 04/22/2024) Active Problems Problem Noted Date Diagnosed Date GARY (acute kidney injury) 03/29/2024 CKD (chronic [...] (Prevnar) 06/17/2014 Pneumococcal Conjugate Vacci ne, 20-valent ([id number]) 02/15/2022 Pneumococcal Polysaccharide PPV23 (Pneumovax) 05/19/2016 Seasonal [...] in the Last Year Never true 07/29/2019 Personal Safety Answer Date Recorded Do you feel unsafe or have concerns for your saf ety? No 03/17/2024 Do you have concerns for you r family's safety? (Household - for ages 0-17 years) Not on file 03/17/2024 Utilities Answer Date Recorded Do you have trouble paying y our heating, water, or electric bill? No 03/17/2024 Is your family able to pay t he heat, water, or electric bill? (Household - for ages 0-17 years) Not on file 03/17/2024 Does your family have access to good internet? (Household - for ages 0-17 years) Not on file 03/17/2024 Transportation Needs Answer Date Record ed Do you have trouble getting a ride to medical visits or work? (Adult - for ages 18 years and over) Not on file 03/17/2024 Does your family have a hard time getting a ride to doctors visits? (Household - for ages 0-17 years) Not on file 03/17/2024 Has lack of transportation k ept you from medical appointments, meetings, work, or from getting things needed for daily living? Check all that apply. No 03/17/2024 Do you (or your family) have trouble finding or paying for a ride (transportation)? (Household - for ages 0-17 years) Not on file 03/17/2024 Housing Stability Answer Date Recorded Do you currently live in a s helter or have no steady place to sleep at night? (Adult - for ages 18 years and over) Not on file 03/17/2024 Do you think you are at risk of becoming homeless? (Adult - for ages 18 years and over) Not on file 03/17/2024 Does your family worry about paying for your home or becoming homeless? (Household - for ages 0-17 years) Not on file 1 05/17/2023 Are you homeless or worried that you might be in the future? No 03/17/2024 Are you (or your family) cristóbal eless or worried that you might be in the future? (Household - for ages 0-17 years) Not on file Food Insecurity Answer Date Recorded Do you need food for this week? No 03/17/2024 Are you able to get enough f ood for your family? (Household - for ages 0-17 years) Not on file 03/17/2024 Does your family need food t his week? (Household - for ages 0-17 years) Not on file 03/17/2024 Do you always have enough fo od for your family? (Household - for ages 0-17 years) Not on file 03/17/2024 Sex and Gender Information Value Date Recorded [...] encounter Miscellaneous Notes * Telephone Encounter - Alida Rios RN [...] with oral cyclophosphamide. * Telephone Encounter - lAida Rios RN - 04/11/2024 4:[address] Dyson- please place new oral oncology plan for oral cyclophosphamide. Thank you. MT - fyi. * Telephone Encounter - Alida Rios RN - 04/11/2024 3:09 PM EST Orders received, plan built and routed. Awaiting auth. -Chemo Consent: 04/10/24 -Chemo Education: 04/12/24 -Port Placement: N/A -Standing Lab orders placed: CBCD,CMP, [place], SPEP, IG Quant ---- Also T&S for patient to have completed at [facility] prior to starting. -Medications Pended: Decadron, Zofran, Compazine, Acyclovir -Hep B Labs: Completed 03/17/24 documented in this encounter Plan of Treatment Upcoming Encounters Date Type Department Care Team (Late st Contact Info) Description 04/22/2024 5:40 PM EST Office Visit Family Medicine [address] [phone] Rahul Tucker MD [address] [place] [address] [place] [address] 04/25/2024 10:45 AM EST Office Visit Hematology/Oncology [facility] 200 [facility] [place] [phone] Lynnette Dyson MD 200 [facility] [place] [address] 04/26/2024 9:15 AM EST Pharmacy Pharmacy Hematology Oncology [facility] [address] [place] [address] [facility] [place] Hem/Onc [address] [place] [address] 05/20/2024 6:20 PM EST Office Visit Family Medicine [address] [phone] Rahul Tucker MD [address] [place] [address] [place] [address] 07/17/2024 11:15 AM EDT Procedure Only Urology, [facility] 132 [facility] [place] [address] Duglas Tadeo MD 27 [place] [address] Scheduled Orders Name Type Priority Associated Diagnoses Orde r Schedule CBC WITH WBC DIFFERENTIAL Lab STAT Light chain (AL) amyloidosis (HCC) Every Week for 52 Occurrences starting 04/11/2024 until 04/11/2025 COMPREHENSIVE METABOLIC PANEL Lab STAT [place] (AL) amyloidosis (HCC) Every Week for 52 Occurrences starting 04/11/2024 until 04/11/2025 IMMUNOGLOBULIN QUANTITATIVE Lab STAT [place] ([place]) amyloidosis (HCC) Every Month for 12 Occurrences starting 04/11/2024 until 04/11/2025 SERUM FREE LIGHT CHAINS Lab STAT [place] (AL) amyloidosis (HCC) Every Month for 12 Occurrences starting 04/11/2024 until 04/11/2025 SERUM PROTEIN ELECTROPHORESIS REFLEX PROFILE Lab STAT [place] (AL) amyloidosis (HCC) 12 Occurrences starting 04/11/2024 until 04/11/2025 Scheduled Procedures Name Priority Associated Diagnoses Date/Ti [...] filedocumented as of this encounter Results * TYPE AND SCREEN (04/12/2024) Blood Venous [...] Advance Directives occurred with: Patient Care Teams Table Runner Relationship Specialty Start Date End Date Rahul Tucker MD [address] [place] [address] [place] [address] PCP - General Family Medicine 08/03/18 documented as of this encounter
--- OUTSIDE RECORDS SUMMARY | 2024-05-05 16:45 | External Medical Summary ---
Author Name Unknown Address Unknown Organization K01:[facility] [address] [facility] [place] [address] Laboratory Report Ordering Provider Test Date Status YOLA CHURCH 04/22/2024 14:18:11 Final Observation Date Value Abnormality Reference (Units ) Status WBC, Total 04/22/2024 14:18:11 15.42 Above high normal 4.00-10.80 (K/uL) Final RBC 04/22/2024 14:18:11 3.27 4.50-5.25 (M/uL) Final Hemoglobin 04/22/2024 14:18:11 10.2 Below low normal 14.0-16.8 (g/dL) Final HCT 04/22/2024 14:18:11 33.8 Below low normal 40.0-48.4 (%) Final MCV 04/22/2024 14:18:11 103.4 82.0-99.5 (fL) Final MCH 04/22/2024 14:18:11 31.2 27.0-34.0 (pg) Final MCHC 04/22/2024 14:18:11 30.2 32.0-36.0 (g/dL) Final RDW 04/22/2024 14:18:11 20.8 11.5-15.5 (%) Final Platelets 04/22/2024 14:18:11 599 Above high normal 140-400 (K/uL) Final MPV 04/22/2024 14:18:11 10.3 6.6-11.1 (fL) Final Nucleated erythrocytes/100 leukocytes [Ratio] in Blood by Automated count 04/22/2024 14:18:11 0 <=0 (/100 WBCs) Final Performing Location [facility] [place] [address] [place] [address]
--- OUTSIDE RECORDS SUMMARY | 2024-05-05 16:45 | External Medical Summary ---
Author Name Unknown Address Unknown Organization : Laboratory Report Ordering Provider Test Date Status CL SPAIN 04/22/2024 15:32:26 Final Therapeutic ranges for non-o perative patients:
Prophylaxsis/treatment of DVT: (Range:2.0-3.0)
Treatment of pulmonary embolism:(Range:2.0-3.0)
Prevention of systemic embolism from:
-tissue heart valves
-acute myocardial infarction
-valvular heart disease
-atrial fibrillation
(Range: 2.0-3.0)
Mechanical prosthetic valves: (Range: 2.5-3.5) Observation Date Value Abnormality Reference (Units ) Status INR in Capillary blood by Coagulation assay 04/22/2024 15:32:26 1.3 (INR) Final Performing Location
--- OUTSIDE RECORDS SUMMARY | 2024-05-05 16:45 | External Medical Summary | Summary of Care ---
Author Name Unknown Organization [facility] Address [address] [place] [address] Phone [phone] Care Team Providers Care Closing Specialist Name Role Phone Rahul Tucker MD Primary Care Provide r Reason for Visit * Reason Comments Outpatient Testing Encounter Details Date Type Department Care Team (Late st Contact Info) Description 04/22/2024 2:20 PM EST Laboratory Laboratory [address] [place] [phone] [place] [address] [place] (AL) amyloidosis (HCC) Allergies Active [...] (Prevnar) 06/17/2014 Pneumococcal Conjugate Vacci ne, 20-valent ([id number]) 02/15/2022 Pneumococcal Polysaccharide PPV23 (Pneumovax) 05/19/2016 Seasonal [...] Description 04/22/2024 3:20 PM EST Anticoagulation Pharmacy, [address] [place] [address] [place] [address] 04/22/2024 5:40 PM EST Office Visit [address] [phone] Rahul Tucker MD [address] [place] [address] [place] [address] Hospital discharge follow-up*; Light chain (AL) amyloidosis (HCC); 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 Hem/Onc [facility] [place] [address] 05/20/2024 6:20 PM EST Office Visit Family [address] [place] [phone] Rahul Tucker MD [address] [place] [address] [place] [address] 07/17/2024 11:15 AM EDT Procedure Only Urology, [facility] 132 [facility] [place] [address] Duglas Tadeo MD [address] [place] [address] Pending Results Name Type Priority Associated Diagnoses [...] Advance Directives occurred with: Patient Care Teams Closing Specialist Relationship Specialty Start Date End Date Rahul Tucker MD [address] [place] [address] [place] [address] PCP - General Family Medicine 08/03/18 documented as of this encounter
--- OUTSIDE RECORDS SUMMARY | 2024-05-05 16:45 | External Medical Summary | Summary of Care ---
Author Name Unknown Organization [facility] Address [address] [place] [address] Phone [phone] Care Team Providers Care Shot Core Drill Operator Helper Name Role Phone Rahul Tucker MD Primary Care Provide r Reason for Visit * Reason Onset Date Comments Precert Future 04/11/2024 DaraVd + Oral Cy toxan Encounter Details Date Type Department Care Team (Late st Contact Info) Description 04/11/2024 Telephone Hematology/Oncology [facility] 200 [facility] [place] [phone] Lynnette Dyson MD [address] [place] [address] Precert Future (DaraVd + Oral Cytoxan) Allergies [...] (Prevnar) 06/17/2014 Pneumococcal Conjugate Vacci ne, 20-valent ([id number]) 02/15/2022 Pneumococcal Polysaccharide PPV23 (Pneumovax) 05/19/2016 Seasonal [...] oncology plan for oral cyclophosphamide. Thank you. [facility] - i. * Telephone Encounter - Alida Rios RN - 04/11/2024 3:09 PM EST Orders received, plan built and routed. Awaiting auth. -Chemo Consent: 04/10/24 -Chemo Education: 04/12/24 -Port Placement: N/A -Standing Lab orders placed: CBCD,CMP, [place], SPEP, IG Quant ---- Also T&S for patient to have completed at [facility] prior to starting. -Medications Pended: Decadron, Zofran, Compazine, Acyclovir -Hep B Labs: Completed 03/17/24 documented in this encounter Plan of Treatment Upcoming Encounters Date Type Department Care Team (Late st Contact Info) Description 04/25/2024 11:30 AM EST Laboratory Laboratory [address] [place] [address] [place] [phone] [place], Lab Scenery [address] [facility] [place] [address] 04/25/2024 5:30 PM EST Anticoagulation Pharmacy, [address] [place] [address] [place] [address] 04/26/2024 9:15 AM EST Pharmacy Pharmacy Hematology Oncology [address] [address] [facility] Hem/Onc [address] [place] [address] 05/20/2024 6:20 PM EST Office Visit Family Medicine [address] [place] [phone] Rahul Tucker MD [address] [place] [address] [place] [address] 07/17/2024 11:15 AM EDT Procedure Only Urology, [facility] 132 [facility] [place] [address] Duglas Tadeo MD [address] [place] [address] [...] LAB BLOOD ORDERABLES Final Res ult [facility] [address] [place] [address] * (ABNORMAL) SERUM FREE LIGHT CHAINS (04/22/2024 2:18 PM EST) [facility] [place] Free Light Chains, Serum 308.00(H) 3.30 - 19.40 mg/L 04/23/2024 3:16 PM EST [facility] [place]ambda Free [place], Serum 143.09(H) 5.71 - 26.30 mg/L 04/23/2024 3:16 PM EST [facility] [place] Lambda Free [place] Ratio 2.15(H) 0.26 - 1.65 04/23/2024 3:16 PM EST [facility] Blood Venous blood specimen / Unknown Venipuncture / Unknown 04/22/2024 2:18 PM EST 04/22/2024 2:18 PM EST us Lynnette Dyson MD LAB BLOOD ORDERABLES Final Res ult Performing Organization Address [facility]/ZIP Co de Phone Number [facility]ORY [facility] [address] [place] [address] * (ABNORMAL) IMMUNOGLOBULIN QUANTITATIVE (04/22/2024 2:18 PM [...] ORDERABLES Final Res ult Performing Organization Address [facility] de Phone Number [facility] [address] [place] [address] * (ABNORMAL) COMPREHENSIVE METABOLIC PANEL (04/22/2024 2:18 [...] ORDERABLES Final Res ult Performing Organization Address City/State/[place] Co de Phone Number [facility] [address] [place] [address] * TYPE AND SCREEN (04/12/2024) Blood Venous blood specimen / Unknown 04/12/2024 Lynnette Dyson MD LAB BLOOD BANK TEST [...] Advance Directives occurred with: Patient Care Teams Shot Core Drill Operator Helper Relationship Specialty Start Date End Date Rahul Tucker MD [address] [place] [address] [place] [address] PCP - General Family Medicine 08/03/18 documented as of this encounter
--- OUTSIDE RECORDS SUMMARY | 2024-05-05 16:45 | External Medical Summary | Summary of Care ---
Author Name Unknown Organization [facility] Address [address] [place] [address] Phone [phone] Care Team Providers Care Sourcing Assistant Name Role Phone Rahul Tucker MD Primary Care Provide r Reason for Visit * Reason Comments Outpatient Testing Encounter Details Date Type Department Care Team (Late st Contact Info) Description 04/22/2024 2:20 PM EST Laboratory Laboratory [address] [place] [phone] [place] [address] [place] amyloidosis (HCC) Allergies Active [...] (Prevnar) 06/17/2014 Pneumococcal Conjugate Vacci ne, 20-valent (Tescuoc58) 02/15/2022 Pneumococcal Polysaccharide PPV23 (Pneumovax) 05/19/2016 Seasonal [...] Team (Late st Contact Info) Description 04/22/2024 3:20 PM EST Anticoagulation Pharmacy, [address] [place] [address] [place] [address] 04/22/2024 5:40 PM EST Office Visit [address] [phone] Rahul Tucker MD [address] [place] [address] [place] [id number] Arrived 04/25/2024 10:45 AM EST Office Visit Hematology/Oncology [facility] [address] [facility] [place] [phone] Brian Dyson MD [address] [facility] [place] [address] 04/26/2024 9:15 AM EST Pharmacy Pharmacy Hematology Oncology [place] [address] [place] [address] [facility] Hem[facility]Onc [address] [place] [address] 05/20/2024 6:20 PM EST Office Visit Family [address] [phone] Rahul Tucker MD [address] [place] [address] [place] [address] 07/17/2024 11:15 AM EDT Procedure Only Urology, [facility] [address] [place] [address] Duglas Tadeo MD [address] [place] [address] Pending Results Name Type Priority Associated Diagnoses [...] Diagnoses Diagnosis [place] amyloidosis (HCC) documented in this encounter Advance Directives * Full Code (Latest Code Status on File) Date Activated Date Inactivated Comments 03/17/2024 7:37 PM 03/29/2024 7:58 PM This order reflects the patients wishes and were consensually agreed upon. Question Answer Comments Discussion of Advance Directives occurred with: Patient Care Teams Sourcing Assistant Relationship Specialty Start Date End Date Rahul Tucker MD [address] [place] [address] [place] [phone] PCP - General Family Medicine 08/03/18 documented as of this encounter
--- OUTSIDE RECORDS SUMMARY | 2024-05-05 16:45 | External Medical Summary | Summary of Care ---
Author Name Unknown Organization [facility] Address [address] [place] [address] Phone [phone] Care Team Providers Care Research Anthropologist Name Role Phone aRhul Tucker MD Primary Care Provide r Reason for Visit * Reason Onset Date Comments Hospital Follow-Up Hospital Follow-Up 04/22/2024 Encounter Details Date Type Department Care Team (Late st Contact Info) Description 04/22/2024 5:40 PM EST Office Visit Family Medicine [address] [place] [id number] Rahul Tucker MD [address] [place] [address] [place] [id number] Hospital discharge follow-up*; Light chain (AL) amyloidosis (HCC); 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); ESRD (end stage renal disease) (HCC); Hypotension, unspecified hypotension type; Peripheral vascular disease (HCC); Portal hypertension (HCC); Retention of urine; Diarrhea, unspecified type; History of pulmonary embolism; Nonintractable epilepsy without status epilepticus, unspecified epilepsy type (HCC); Cirrhosis of liver with ascites, unspecified hepatic cirrhosis type (HCC) Allergies Active Allergy Reactions Criticality Noted Date Comments Azithromycin Hives 12/10/2010 documented as of this encounter (statuses as of 04/22/2024) Medications Finasteride 5 MG Oral Tablet (Proscar) Take 1 Tablet by mouth in the morning. 90 Tablet 3 Active Latanoprost 0.005 % Ophthalmic Solution (Xalatan) Instill into eye. Ac tive Aspirin 81 MG Oral Tablet Delayed Release Take 1 Tablet by mouth in the morning. Active Atorvastatin Calcium 40 MG Oral Tablet (Lipitor) Take 1 Tablet by mouth every afternoon. 30 Tablet 5 Active Additional Information Patient not taking.Reported on 04/18/2024 Torsemide 20 MG Oral Tablet (Demadex) Take 2 Tablets by mouth in the morning. 60 Tablet 5 Active Additional Information Patient taking differently: 100 mgOral Daily(AM), Reported on 04/22/2024 Bisacodyl 5 MG Oral Tablet Delayed Release (Dulcolax) Take 1 Tablet by mouth twice per day (morning, before bedtime). 60 Tablet 5 Active Additional Information Patient not taking.Reported on 04/18/2024 Polyethylene Glycol 3350 17 GM/SCOOP Oral Powder (Miralax) Mix and dissove one capful (to fill line) in 8 oz of juice or water and take by mouth twice per day (morning, before bedtime). 238 g Active Sennosides-Doc usate Sodium 8.6-50 MG Oral Tablet (Senokot-S) Take 1 Tablet by mouth in the morning and 1 Tablet at noon and 1 Tablet before bedtime. 90 Tablet 5 Active Additional Information Patient not taking.Reported on 04/22/2024 LiquaCel Oral Liquid Take 30 mL by mouth in the morning and 30 mL before bedtime. 1920 mL 11 2024 Active Additional Information Patient not taking.Reported on 04/22/2024 Prochlorperazi ne Maleate 10 MG Oral Tablet (Compazine)Ind ications:Light chain (AL) amyloidosis (HCC) Take 1 Tablet by mouth every 6 hours as needed for Nausea. 30 Tablet 3 Active Ondansetron HCl 8 MG Oral Tablet (Zofran)Indica tions:Light chain (AL) amyloidosis (HCC) Take 1 Tablet by mouth every 8 hours as needed for Nausea. 30 Tablet 2 Active dexAMETHasone 4 MG Oral Tablet (Decadron)Kathryn cations:Light chain (AL) amyloidosis (HCC) Take 5 tablets by mouth once a week prior to treatment for 3 weeks, then 10 tablets weekly after. 55 Tablet 024 Active Acyclovir 400 MG Oral Tablet (Zovirax)Indic ations:Light chain (AL) amyloidosis (HCC) Take 1 Tablet by mouth in the morning and 1 Tablet before bedtime. 180 Tablet 1 Active Omeprazole 20 MG Oral Capsule Delayed Release (PriLOSEC)Kathryn cations:Light chain (AL) amyloidosis (HCC) Take 1 Capsule by mouth in the morning. 30 Capsule 1 Active Midodrine HCl 10 MG Oral Tablet (Proamatine) Take 1 Tablet by mouth in the morning and 1 Tablet at noon and 1 Tablet in the evening. Active cycloPHOSphami de 50 MG Oral Capsule (Cytoxan)Indic ations:Amyloid osis, unspecified type (HCC) Take 6 capsules by mouth once a week. 24 Capsule 5 04/19/20 24 11:58 AM EST Active Warfarin Sodium 5 MG Oral Tablet (Coumadin) Take up to 1 tablet by mouth daily as directed by anticoagulation clinic. 30 Tablet 5 024 Active Gabapentin 300 MG Oral Capsule (Neurontin) Take 1 Capsule by mouth at bedtime. Active Gabapentin 100 MG Oral Capsule (Neurontin) Take 1 capsule in AM and 1 capsule in afternoon. Active Gabapentin 100 MG Oral Capsule (Neurontin) Take 1 Capsule by mouth at bedtime. 30 Capsule 5 024 2023 Discontinued documented as of this encounter (statuses [...] (Prevnar) 06/17/2014 Pneumococcal Conjugate Vacci ne, 20-valent ([id number]) 02/15/2022 Pneumococcal Polysaccharide PPV23 (Pneumovax) 05/19/2016 Seasonal [...] Sign Reading Time Taken Comments Blood Pressure 79/47 04/22/2024 2:32 PM EST Pulse 79 04/22/2024 2:32 PM EST Temperature 36.3 C (97.3 F) 04/22/2024 2:32 PM ES T Respiratory Rate - - Oxygen Saturation 96% 04/22/2024 2:32 PM EST Inhaled Oxygen Concentration - - Weight - - Height - - Body Mass Index - - documented in this encounter Functional Status * [...] Genoveva Cardona RN documented in this encounter Patient Instructions * Patient Instructions* Rahul Tucker MD - 04/22/2024 2:46 PM EST Taking Medicine Safely Medicine is given to help treat or prevent illness. But if you don't take it correctly, it might not help. It might even harm you. Your doctor or pharmacist can help you learn the right way to take your medicine. Listed below are some tips to help you take medicine safely. Safety Tips Have a routine for taking each medicine. Make it part of something you do each day, such as brushing your teeth or eating a meal. When you go to the hospital or your doctor's office, bring all your current medicines in their original boxes or bottles. If you can't do that, bring an up-to-date list of your medicines. Do not stop taking a prescription medicine unless your doctor tells you to. Doing so could make your condition worse. Do not share medicines. Let your doctor and pharmacist know of any allergies you have. Taking prescription medicines with alcohol, street drugs, herbs, supplements, or even some sqzr-bca-nvyytft medicines can be harmful. Talk to your doctor or pharmacist before using any of these things while taking a prescription medicine. When filling your prescriptions, try using the same pharmacy for all your medicines. If not, let the pharmacist know what medicines you are already on. Keep medicines out of the reach of children and pets. Do not use medicine that has or that doesn't look or smell right. Get rid of it properly. To find out the right way to get rid of medicine: Call your community [facility]'s household trash and recycling service and ask if a drug take-back program is available in your community. Call your local pharmacy and ask the right way to get rid of the medicine. Go to http://www.fda.gov/ForConsumers/ConsumerUpdates/pgk662555 to learn how to get rid of medicines safely. Using Generic Medicines Medicines have brand names and generic (chemical) names. When a medicine is first made, it is sold only under its brand name. Later, it can be made and sold as a generic. Generic medicines cost less than brand-name medicines and most work just as well. Most people can use the generic medicine instead of the brand-name medicine, unless their doctor says otherwise. 6119-7854 [facility], [address] [place] [address], [place] [address]. All rights reserved. This information is not intended as a substitute for professional medical care. Always follow your healthcare professional's instructions. Coping with Your Diagnosis of a Chronic Health Condition If you have a chronic health condition, you have a problem that may not go away over time. Heart disease, asthma, arthritis, and diabetes are just a few of the chronic conditions that exist. Right now, these conditions have no known cure. But you can take an active role in managing your health. Coping with Your Diagnosis If you've just learned about your health condition, you may be angry, depressed, or afraid. Or you might feel relieved just to know what's wrong. Even if you've known about your health problem for a while, adjusting to it can be hard. But learning about your condition can help you cope. Look for books at your local library. If you have access to a computer, check the Internet. Or contact a group that focuses on your specific problem. Accepting Change Change is hard for most people. Yet right now you may be facing many changes. What you eat or the way you work may change. Your moods, and even your symptoms, might vary from day to day. Although it isn't easy, learning to accept change can help you feel more in control. Taking Control Feeling you have control can make living with your condition easier. Discuss treatment options withyour health care provider. The more you know, the more active you can be in your care. Moving Forward You may wonder whether you will be able to do the things you've always done. That depends on your age, the condition you have, and your goals. To make the most of each day, try to build caring relationships, be active, and eat right. Also, do your best to keep a sense of humor. 2391-2692 [facility], [address] [place] [address], [place] [address]. All rights reserved. This information is not intended as a substitute for professional medical care. Always follow your healthcare professional's instructions. Taking an Active Role in Your Medicines Take the time to learn about your medicine. For instance, why are you taking it? What does it do? Work with your doctor or other health care providers to get the answers you need. Talk to your pharmacist about how to take each medicine, and ask for a fact sheet on each one. Ask Questions About Your Medicine What is the name of the medicine? Why do I need to take it? When should I take it? How should I take it: with water? with food? on an empty stomach? How much do I take? What do I do if I miss a dose? What side effects could it cause and which ones should I call the doctor about? Are there any foods or medicines I should avoid while taking this medicine? Keeping track of your medications? Name of medicine: Taken for: Dose: Time(s) to take it: Take an Active Role Fill all your prescriptions at the same pharmacy. This keeps your medicine history in one place. Talk to the pharmacist. Make sure you understand how to take each medicine. Ask for a fact sheet about each one. Tell your doctor and pharmacist about all the prescription and xyav-yli-qjymzmr medicines you take.This includes vitamins and herbal remedies. Tell your doctor and pharmacist if you have any medical conditions or allergies to any medicine or food, or if you are or . Keep a list of all your medicines. Use the sample to the right as a guide for the type of information needed. 1203-6723 [facility], [address] [place] [address], [place] [address]. All rights reserved. This information is not intended as a substitute for professional medical care. Always follow your healthcare professional's instructions. documented in this encounter Progress Notes * Rahul Tucker MD - 04/22/2024 2:42 PM EST SUBJECTIVE: Dre Vera is a 74 year old male. Chief Complaint Patient presents with Hospital Follow-Up Hospital Follow-Up Recent Admission: Patient was recently admitted to [facility] on 03/13/24 and then transferred [place] [facility] [place]24 and then to [facility] 03/29/24-04/16/24. The date of discharge was 04/16/2024. Discharge report received and reviewed. HPI: Brief Clinical History Mr. 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 Patient was initially admitted to [facility] on 03/13/24 with left lower leg pain that started the day prior to admission. He had been having pain in the leg with ambulating a few weeks prior but got much worse the day prior to admission. The left foot was cool to touch and discolored. Patient had recently started work up with [facility] hematology for possibility of multiple myeloma due to Bence-Cosme protein on recent outpatient urine. This was eventually discovered to be light chain amyloidosis. 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 Patient was admitted and was found to have extensive left lower extremity plaque within the LLEand stenosis within the mid left superficial femoral artery and markedly diminished flow within theleft calf vessels without definite distal flow. He underwent mechanical thrombectomy, tPA, and IV heparin without improvement. He then underwent left AKA on 03/15/[address] Smith. Patient was noted to have GARY on CKD and nephrotic range proteinuria. Creatinine was up to 4.5 on the day of transfer.He had Sousa placed for surgery and was left in place. He was begun on dialysis while at [facility] on 03/17/24. Nephrology then recommended transfer [place] [facility] [place] biopsy. He had been started on midodrine 10 mg twice daily PRN for hypotension while at [facility]. Patient was transferred to [facility] on 03/17/24. He underwent kidney biopsy, which showed light chain (AL) amyloidosis. TTE was done to evaluate for cardiac involvement, which was OK. Liver tests were elevated and ultrasound did not reveal biliary source. He was recommended to have liver biopsy to evaluate for liver involvement, which was scheduled for 04/03/24. Patient's midodrine was discontinued prior to transfer to [facility] due to hypertension. His furosemide was discontinued and he was changed to torsemide. He was then transferred to [facility] from 03/29/24-04/16/24. No records are available from this stay. Patient was restarted on midodrine due to persistent hypotension per . He forgot to take any doses today. He received heparin while at [facility] but not discharged on anticoagulation. Hematology has recommended anticoagulation due to h/o PE and high risk for thrombotic complications. He was started on Coumadin after discussion with nephrology on 04/19/24. Following with Dr. Tadeo. Had started straight catheterizing just a few weeks before he got admitted for possible urinary retention. However on review of office notes, it was felt that urinary retention was questionable and patient developed GARY shortly after this. It was also noted he put out very little urine in the catheter prior to being admitted to the hospital with the issues as above and is now on dialysis. He was discharged from [facility] with the Sousa. notes that it was not attempted to be removed and had been placed prior to the amputation. is nurse and states she still has straight cath supplies at home and can cath him on a schedule if needed if he cannot void on hisown. Has been having diarrhea. Protein drinks and eating makes him move his bowels. The stool is very soft but not watery. Has been having 4-5 BMs a day at times. Had negative stool for C diff while admitted. Blood pressure has been running low. Has been taking the midodrine 10 mg TID. Had been stopped whenhe left [facility] due to hypertension. The midodrine was restarted when he was at [facility]. Is on torsemide. Having a lot of pain in his amputated leg. Has phantom pain and severe pins and needles. Keeps him awake at night. Having a hard time sleeping. Has been taking gabapentin 100 mg TID but is not helping. Remains on dialysis. Goes on MWF schedule but will be TTS this week and next week due to the holiday schedules. Is scheduled for follow-up with hematology 04/25/24. May possibly be starting chemotherapy for treatment of amyloidosis. 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 90 Tablet 3 Latanoprost 0.005 % Ophthalmic Solution (Xalatan) Instill into eye. Aspirin 81 MG Oral Tablet Delayed Release Take 1 Tablet by mouth in the morning. Torsemide 20 MG Oral Tablet (Demadex) Take 2 Tablets by mouth in the morning. (Patient taking differently: Take 5 Tablets by mouth in the morning.) 60 Tablet 5 Polyethylene Glycol 3350 17 GM/SCOOP Oral Powder (Miralax) Mix and dissove one capful (to fill line) in 8 oz of juice or water and take by mouth twice per day (morning, before bedtime). 238 g 0 Prochlorperazine Maleate 10 MG Oral Tablet (Compazine) [...] in AM and 1 capsule in afternoon. Atorvastatin Calcium 40 MG Oral Tablet (Lipitor) Take 1 Tablet by mouth every afternoon. (Patient not taking: Reported on 04/18/2024) 30 Tablet 5 Bisacodyl 5 MG Oral Tablet Delayed Release (Dulcolax) Take 1 Tablet by mouth twice per day (morning, before bedtime). (Patient not taking: Reported on 04/18/2024) 60 Tablet 5 Sennosides-Docusate Sodium 8.6-50 MG Oral Tablet (Senokot-S) Take 1 Tablet by mouth in the morning and 1 Tablet at noon and 1 Tablet before bedtime. (Patient not taking: Reported on 04/22/2024) 90 Tablet 5 LiquaCel Oral Liquid Take 30 mL by mouth in the morning and 30 mL before bedtime. (Patient not taking: Reported on 04/22/2024) 1920 mL 11 No current facility-administered medications for this visit. Current and discharge medications have been reconciled. Review of patient's allergies indicates: Allergen Reactions Zithromax [Azithromycin] Hives OBJECTIVE: BP 79/47 | Pulse 79 | Temp 97.3 F (36.3 C) (Tympanic) | SpO2 96% Review Of Systems: Skin: pt denies, new or changing moles, pigmentation change, rash, scaling, itching, bruising, lumps or bumps, hair changes, nail changes Eyes: negative Ears/Nose/Throat: pt denies:, deafness, tinnitus, vertigo, frequent URI's, sinus trouble Respiratory: pt denies:, cough, sputum, pneumonia or bronchitis, and +former smoker Cardiovascular: pt denies:, palpitations, tachycardia, chest pain, exertional chest pain or pressure, paroxysmal nocturnal dyspnea, lower extremity edema, and +h/o hypertension but hypotension Gastrointestinal: pt. denies:, abdominal pain, bloating or excess gas, dysphagia, heartburn, blood in stool or black stools, constipation or change in bowel habits, +diarrhea after eating. +cirrhosis Genitourinary: Sousa in place currently Musculoskeletal: +phantom limb pain Neurologic: +seizure disorder Psychiatric: pt denies:, sleep disturbance, anxiety, nervousness, and depression Hematologic/Lymphatic/Immunologic: +amyloidosis Endocrine: pt denies:, thyroid disorder, cold intolerance, heat intolerance, and diabetes PHYSICAL EXAM: General: alert, no distress, and chronically ill appearing male who lays down for much of the office visit Head: Normocephalic, No masses, lesions, tenderness or abnormalities Eye Exam: PERRLA, extraocular movements intact, conjunctiva are pink and non- injected, sclera clear Ears: External ears normal Nose: no mucosal erythema, no mucosal edema, no purulent discharge Oropharynx: no exudate, no erythema, lips, buccal mucosa, and tongue normal, and mucous membranes are moist Neck: supple, no adenopathy, no bruits Heart: regular rate & rhythm, no murmur, and no gallops Lungs: chest symmetric with normal AP diameter, no chest deformities noted, no chest wall tenderness, lungs clear to auscultation, decreased breath sounds Abdomen: abdomen soft, non-tender, normal bowel sounds, and ascites Extremities: left leg s/p AKA with dressing in place. 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 On hemodialysis currently and follow-up with hematology as scheduled 04/26/24. Considering chemotherapy for treatment. Liver biopsy pending. 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 Smith. Appears to be healing well. notes he will be starting with shrinkers and hopefully a prosthesis whenhealed. Having neuropathic pain. Increase gabapentin to 300 mg at bedtime and 100 mg in AM and 100 mg in afternoon. ESRD (end stage renal disease) (HCC)--on dialysis. Following with nephrology. Hypotension, unspecified hypotension type--Resumed midodrine 10 mg TID and noted this was OK with nephrology. Patient did not take today and hypotensive. Nephrology recommending to reduce torsemide to 60 mg if continues to be hypotensive. Peripheral vascular disease (HCC)--s/p left AKA due to arterial embolism. Started on Coumadin 04/19/24. Portal hypertension (HCC)--following with GI. To have liver biopsy. Retention of urine--unclear if he ever had urinary retension. Started straight catheterization for oliguria right before diagnosis of amyloidosis was made. Noted to have elevated PVR on bladder scan but urology felt ascites gave a false positive as he had scant urine return. He had Sousa placed prior to the AKA and was not taken out. Discussed with that she can discontinue it and resume CIC as per urology prior to admission to hospital in March. If needs to be replaced, can be done by home health. The Sousa is very bothersome and painful for patient and he would like to have it removed. Diarrhea, unspecified type--recommend Imodium daily and hold for constipation. Consider stool studies if persists/becomes watery. History of pulmonary embolism--started on Coumadin as above. Had remote provoked PE after surgery. Nonintractable epilepsy without status epilepticus, unspecified epilepsy type (HCC)--phenobarbital discontinued several months ago due to concerns of it causing liver injury. Has had not had a seizure for many years. Cirrhosis of liver with ascites, unspecified hepatic cirrhosis type (HCC)--to have liver biopsy. ?amyloidosis? PLAN: Continue present medication(s): Begin medication(s): Imodium daily for diarrhea, which appears to be associated with food. Change dose of medication(s) to Increase gabapentin to 300 mg at bedtime and 100 mg in the morning and 100 mg in the afternoon. Schedule labs: INR fingerstick today after this appointment as is new start on Coumadin. Had CBC w/diff, CMP, SPEP, serum free light chains, Patient education: OK to remove Sousa and resume intermittent straight catheterization schedule as per urology prior to the hospital admission and diagnosis of light chain amyloidosis affecting kidneys and now with ESRD on dialysis. Makes some urine but not much output and no clear h/o that he actually had urinary retention versus oliguria from amyloidosis. Discussed increasing the gabapentin as above Follow up as scheduled. I spent a total of 40-54 minutes (exact time 52 mins) minutes on the date of service in preparation, delivery, and documentation of the care provided to Dre Vera excluding any time spent in performance of separately billed services. Rahul Tucker MD documented in this encounter Nursing Notes * Beatris Davis LPN - 04/22/2024 2:32 PM EST Hospital follow up documented in this encounter Plan of Treatment Upcoming Encounters Date Type Department Care Team (Late st Contact Info) Description 04/25/2024 10:45 AM EST Office Visit Hematology/Oncology Derrell Ronquillo [address] [place] [phone] Brian Dyson MD [address] [place] [address] 04/25/2024 11:30 AM EST Laboratory Laboratory Scenery Shima Se[place] [address] [place] [phone] [place], Lab Scenery [address] [place] [address] 04/25/2024 5:30 PM EST Anticoagulation Pharmacy, [address] [place] [address] [place] [address] 04/26/2024 9:15 AM EST Pharmacy Pharmacy Hematology Oncology [address] [address] [facility] Hem/Onc [facility] [place] [address] 05/20/2024 6:20 PM EST Office Visit Family Medicine [address] [place] [phone] Rahul Tucker MD [address] [place] [address] [place] [address] 07/17/2024 11:15 AM EDT Procedure Only Urology, [facility] 132 [facility] [place] [address] Duglas Tadeo MD [address] [place] [phone] Scheduled Procedures Name Priority Associated Diagnoses Date/Ti [...] renal disease) (HCC) End stage renal disease Hypotension, unspecified hypotension type Peripheral vascular disease (HCC) Peripheral vascular disease, unspecified Portal hypertension (HCC) Portal hypertension Retention of urine Retention of urine, unspecified Diarrhea, unspecified type History of pulmonary embolism Personal history of pulmonary embolism Nonintractable epilepsy without status epilepticus, unspecified epilepsy type (HCC) Cirrhosis of liver with ascites, unspecified hepatic cirrhosis type (HCC) documented in this encounter Advance Directives * Full Code (Latest Code Status on File) Date Activated Date Inactivated Comments 03/17/2024 7:37 PM 03/29/2024 7:58 PM This order reflects the patients wishes and were consensually agreed upon. Question Answer Comments Discussion of Advance Directives occurred with: Patient Care Teams Research Anthropologist Relationship Specialty Start Date End Date Rahul Tucker MD [address] [place] [address] [place] [address] PCP - General Family Medicine 08/03/18 documented as of this encounter"
--- OUTSIDE RECORDS SUMMARY | 2024-05-05 16:45 | External Medical Summary | Summary of Care ---
Author Name Unknown Organization [facility] Address [address] [place] [address] Phone [phone] Care Team Providers Care Mortar Man Name Role Phone Rahul Tucker MD Primary Care Provide r Reason for Visit * Reason Comments Outpatient Testing Encounter Details Date Type Department Care Team (Late st Contact Info) Description 04/22/2024 2:20 PM EST Laboratory Laboratory [address] [place] [phone] [place] [address] Light chain (AL) amyloidosis (HCC) Allergies Active [...] (Prevnar) 06/17/2014 Pneumococcal Conjugate Vacci ne, 20-valent ([id number]) 02/15/2022 Pneumococcal Polysaccharide PPV23 (Pneumovax) 05/19/2016 Seasonal [...] Description 04/22/2024 3:20 PM EST Anticoagulation Pharmacy, [address] [place] [address] [place] [address] 04/22/2024 5:40 PM EST Office Visit [address] [phone] Rahul Tucker MD [address] [place] [address] [place] [address] Hospital discharge follow-up*; Light chain (AL) amyloidosis (HCC); 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); ESRD (end stage renal disease) (HCC); Peripheral vascular disease (HCC); Hypotension, unspecified hypotension type 04/25/2024 10:45 AM EST Office Visit Hematology/Oncology [facility] [place] [phone] Brian Dyson MD 200 [facility] [place] [address] 04/26/2024 9:15 AM EST Pharmacy Pharmacy Hematology Oncology [place] [address] [place] [address] [facility] Hem/Onc [facility] [place] [address] 05/20/2024 6:20 PM EST Office Visit Family [address] [place] [phone] Rahul Tucker MD [address] [place] [address] [place] [address] 07/17/2024 11:15 AM EDT Procedure Only Urology, [facility] 132 [facility] [place] [address] Duglas Tadeo MD [address] [place] [address] Pending Results Name Type Priority Associated Diagnoses [...] Advance Directives occurred with: Patient Care Teams Mortar Man Relationship Specialty Start Date End Date Rahul Tucker MD [address] [place] [address] [place] [address] PCP - General Family Medicine 08/03/18 documented as of this encounter
--- OUTSIDE RECORDS SUMMARY | 2024-05-05 16:46 | External Medical Summary ---
Author Name Unknown Address Unknown Organization K01:[facility] [address] [place] [address] Laboratory Report Ordering Provider Test Date Status YOLA CHURCH 04/22/2024 14:18:11 Final Observation Date Value Abnormality Reference (Units ) Status IgG 04/22/2024 14:18:11 2137 Above high normal 70 0-1600 (mg/dL) Final IgA 04/22/2024 14:18:11 305 70-400 (mg /dL) Final IgM 04/22/2024 14:18:11 99 40-230 (mg /dL) Final Performing Location [facility] [address] [place] [address]
--- OUTSIDE RECORDS SUMMARY | 2024-05-05 16:46 | External Medical Summary | Summary of Care ---
Author Name Unknown Organization [facility] Address [address] [place] [address] Phone [phone] Care Team Providers Care Group Manager Name Role Phone Rahul Tucker MD Primary Care Provide r Reason for Visit * Reason Onset Date Comments Medication Question 04/18/2024 Dr. Dyson Encounter Details Date Type Department Care Team (Late st Contact Info) Description 04/18/2024 Telephone Hematology/Oncology [facility] [address] [place] [phone] Brian Dyson MD [address] [place] [facility] [address] Medication Question (Dr. Dyson) Allergies Active Allergy Reactions Criticality Noted Date Comments Azithromycin Hives 12/10/2010 documented as of this encounter (statuses as of 04/18/2024) Medications Finasteride 5 MG Oral Tablet (Proscar) Take 1 Tablet by mouth in the morning. 90 Tablet 3 4 Active Latanoprost 0.005 % Ophthalmic Solution (Xalatan) Instill into eye. Active Aspirin 81 MG Oral Tablet Delayed Release Take 1 Tablet by mouth in the morning. Active Gabapentin 100 MG Oral Capsule (Neurontin) Take 1 Capsule by mouth at bedtime. 30 Capsule 5 4 Active Atorvastatin Calcium 40 MG Oral Tablet (Lipitor) Take 1 Tablet by mouth every afternoon. 30 Tablet 5 4 Active Torsemide 20 MG Oral Tablet (Demadex) Take 2 Tablets by mouth in the morning. 60 Tablet 5 4 Active Bisacodyl 5 MG Oral Tablet Delayed Release (Dulcolax) Take 1 Tablet by mouth twice per day (morning, before bedtime). 60 Tablet 5 4 Active Polyethylene Glycol 3350 17 GM/SCOOP Oral [...] before bedtime. 90 Tablet 5 4 Active LiquaCel Oral Liquid Take 30 mL by mouth in the morning and 30 mL before bedtime. 1920 mL 11 4 03/24/20 25 Active Prochlorperazine Maleate 10 MG Oral Tablet (Compazine)Indic [...] the morning. 30 Capsule 1 4 Active cycloPHOSphamide 50 MG Oral Tablet (CYTOXAN)Indicat ions:Light chain (AL) amyloidosis (HCC) Take 6 tablets by mouth once a week. 24 Tablet 5 Active documented as of this encounter (statuses as of 04/18/2024) Active Problems Problem Noted Date Diagnosed Date [...] as of this encounter (statuses as of 04/18/2024) Resolved Problems Problem Noted Date Diagnosed Date Resolved Date Carpal tunnel syndrome 06/17/201402/08 Allergic rhinitis 06/17/2014 02/08/2018 Adjustment disorder with depressed mood 12/10/2013 07/20/2017 Eczema 06/22/2012 07/20/2017 Epileptic seizure 12/10/2010 08/16/2018 documented as of this encounter (statuses as of 04/18/2024) Immunizations Name Administration Dates Next Due Pneumococcal Conjugate Vacc, 13 Valent (Prevnar) 06/17/2014 Pneumococcal Conjugate Vacci ne, 20-valent ([id number]) 02/15/2022 Pneumococcal Polysaccharide PPV23 (Pneumovax) 05/19/2016 Seasonal [...] Telephone Encounter - Genoveva Diez RN - 04/18/2024 11:26 AM EST Called and spoke to Bina. She states that patient was discharged home from [facility] on Monday. At [facility], patients states that he was getting heparin, she thinks twice a day. They just realized that he was not sent home with a prescription for this, has not been taking anything since discharge. Patients home care nurse is at [facility]. She states that the paperwork says patient had been receiving lovenox 40mg, but confirmed it is not listed under discharge medications to continue and he was not given a prescription. Patients states that she doesn't think he was getting lovenox, she thinks it was heparin because she thought they were drawing it from a vial and thinks lovenox would have been too expensive for them to give him while admitted. She didn't think about the injection after they left because she thought they were just giving it to him at dialysis. She states that Dr Dyson and Dr Mayorga had been talking about what the best choice for prophylaxis would be as they didn't think coumadin would work well. She states that [facility] had been monitoring the heparin and adjusting the heparin dose while he was there. Per Dr Dyson's office note: "He is at high-risk for thrombotic complications, he will continue subcutaneous heparin prophylaxis. " Asked to speak to home care nurse- advised that Dr Dyson is out of the office until Monday. She states that she will call [facility] family caseworker as they should have provided short term rx of prescription for whichever medication he was getting when he was discharged. * Telephone Encounter - Enedelia Ramey OSA - 04/18/2024 9:07 AM EST Pt's Bina requesting nurse callback to discuss Pt's heparin medication; she wants to know why it was discontinued because he needs it per Dr. Dyson. Please call Bina Vera to advise, documented in this encounter Plan of Treatment Upcoming Encounters Date Type Department Care Team (Late st Contact Info) Description 04/22/2024 9:15 AM EST Pharmacy Pharmacy Hematology Oncology [address] [address] [facility] Hem/Onc [facility] [place] [address] 04/22/2024 5:40 PM EST Office Visit Family [address] [phone] Rahul Tucker MD [address] [place] [address] [place] [address] 04/25/2024 10:45 AM EST Office Visit Hematology/Oncology [address] [place] [phone] Brian Dyson MD [address] [place] [address] [place] [address] 05/20/2024 6:20 PM EST Office Visit Family Medicine [address] [phone] Rahul Tucker MD [address] [place] [address] [place] [address] 07/17/2024 11:15 AM EDT Procedure Only Urology, [facility] [address] [place] [address] Duglas Tadeo MD [address] [place] [address] Scheduled Procedures Name Priority Associated Diagnoses Date/Ti me ESOPHAGOGASTRODUODENOSCOPY ( EGD), FLEXIBLE, TRANSORAL, DIAGNOSTIC Recall Cirrhosis (HCC) Esophageal varices (HCC) Health Maintenance Due Date Last Done Comments DISCUSS TOBACCO CESSATION (REFER TO SMARTSET #3295) 1950 COVID-19 Vaccine (#1) 1955 Hepatitis B Vaccine (1 of 3 - Risk 3-dose series) 2009 Zoster Vaccines (1 of 2) 04/01/2013 02/04/2013, 12/31 Adult Wellness Visit 2015 Depression Screening 12/09/2020 12/10/2019 DTap/Tdap Vaccines (2 - Td or Tdap) 11/16/2021 11/17/2011 Influenza Vaccine (FLU shot) (#1) 2023 02/15/2022, 02/26/2021, 02/28/2020, Additional history exists Colonoscopy Discontinued 06/23/2020, 06/03/2015 Colorectal Cancer Screening [...] Advance Directives occurred with: Patient Care Teams Group Manager Relationship Specialty Start Date End Date Rahul Tucker MD [address] [place] [address] [place] [phone] PCP - General Family Medicine 08/03/18 documented as of this encounter
--- OUTSIDE RECORDS SUMMARY | 2024-05-05 16:46 | External Medical Summary | Summary of Care ---
Author Name Unknown Organization [facility] Address [address] [place] [address] Phone [phone] Care Team Providers Care Securities Compliance Examiner Name Role Phone Rahul Tucker MD Primary Care Provide r Reason for Visit * Reason Onset Date Comments Precert Future 04/11/2024 DaraVd + Oral Cy toxan Encounter Details Date Type Department Care Team (Late st Contact Info) Description 04/11/2024 Telephone Hematology/Oncology [facility] [place] [phone] Lynnette Dyson MD [address] [facility] [address] Precert Future (DaraVd + Oral Cytoxan) Allergies Active Allergy Reactions Criticality Noted Date Comments Azithromycin Hives 12/10/2010 documented as of this encounter (statuses as of 04/15/2024) Medications Finasteride 5 MG Oral Tablet (Proscar) [...] as of this encounter (statuses as of 04/15/2024) Active Problems Problem Noted Date Diagnosed Date [...] as of this encounter (statuses as of 04/15/2024) Resolved Problems Problem Noted Date Diagnosed Date Resolved Date Carpal tunnel syndrome 06/17/201402/08 Allergic rhinitis 06/17/2014 02/08/2018 Adjustment disorder with depressed mood 12/10/2013 07/20/2017 Eczema 06/22/2012 07/20/2017 Epileptic seizure 12/10/2010 08/16/2018 documented as of this encounter (statuses as of 04/15/2024) Immunizations Name Administration Dates Next Due Pneumococcal Conjugate Vacc, 13 Valent (Prevnar) 06/17/2014 Pneumococcal Conjugate Vacci ne, 20-valent ([id number]) 02/15/2022 Pneumococcal Polysaccharide PPV23 (Pneumovax) 05/19/2016 Seasonal [...] No 03/17/2024 Are you (or your family) crsitóbal eless or worried that you might be [...] Placement: N/A -Standing Lab orders placed: CBCD,CMP, [place], SPEP, IG Quant ---- Also T&S for patient to have completed at [facility] prior to starting. -Medications Pended: Decadron, Zofran, Compazine, Acyclovir -Hep B Labs: Completed 03/17/24 documented in this encounter Plan of Treatment Upcoming Encounters Date Type Department Care Team (Late st Contact Info) Description 04/17/2024 1:30 PM EST Pharmacy Pharmacy Hematology Oncology [facility] [place] [address] [place] [address] [facility] Hem/Onc [address] [place] [address] 04/22/2024 5:40 PM EST Office Visit Family [address] [phone] Rahul Tucker MD [address] [place] [address] [place] [address] 04/25/2024 10:45 AM EST Office Visit Hematology/Oncology [address] [place] [phone] Lynnette Dyson MD 200 [facility] [address] 05/20/2024 6:20 PM EST Office Visit Family [address] [phone] Rahul Tucker MD [address] [place] [address] [place] [address] 07/17/2024 11:15 AM EDT Procedure Only Urology, [facility] 132 [facility] [place] [address] Duglas Tadeo MD [address] [place] [address] Scheduled Orders Name Type Priority Associated Diagnoses [...] Comments DISCUSS TOBACCO CESSATION (REFER TO SMARTSET #7055) 1950 Hepatitis B Vaccine (1 of 3 - Risk 3-dose series) 2009 Zoster Vaccines (2 of 3) 04/01/2013 02/04/2013, 12/31 Adult Wellness Visit 2015 Depression Screening 12/09/2020 12/10/2019 DTap/Tdap Vaccines (2 - Td or Tdap) 11/16/2021 11/17/2011 COVID-19 Vaccine (1 - season) 2023 Influenza Vaccine (FLU shot) [...] Advance Directives occurred with: Patient Care Teams Securities Compliance Examiner Relationship Specialty Start Date End Date Rahul Tucker MD [address] [place] [address] [place] [address] PCP - General Family Medicine 08/03/18 documented as of this encounter
--- OUTSIDE RECORDS SUMMARY | 2024-05-05 16:46 | External Medical Summary | Summary of Care ---
Author Name Unknown Organization [facility] Address [address] [place] [address] Phone [phone] Care Team Providers Care [place] Actor Name Role Phone Rahul Tucker MD Primary Care Provide r Reason for Visit * Reason Comments Medication Management Encounter Details Date Type Department Care Team (Late st Contact Info) Description 04/16/2024 9:15 AM [facility] Pharmacy Pharmacy Hematology Oncology [facility] [place] [address] [place] [address] [facility] Hem/Onc [address] [place], [place] [phone] Light chain (AL) amyloidosis (HCC)* Allergies Active Allergy Reactions Criticality Noted Date Comments Azithromycin Hives 12/10/2010 documented as of this encounter (statuses as of 04/16/2024) Medications Finasteride 5 MG Oral Tablet (Proscar) [...] before bedtime. 180 Tablet 1 4 Active cycloPHOSphamide 50 MG Oral Tablet (CYTOXAN)Indicat ions:Light chain (AL) amyloidosis (HCC) Take 6 Tablets by mouth once a week. 24 Tablet 5 4 Active documented as of this encounter (statuses as of 04/16/2024) Active Problems Problem Noted Date Diagnosed Date [...] as of this encounter (statuses as of 04/16/2024) Resolved Problems Problem Noted Date Diagnosed Date Resolved Date Carpal tunnel syndrome 06/17/201402/08 Allergic rhinitis 06/17/2014 02/08/2018 Adjustment disorder with depressed mood 12/10/2013 07/20/2017 Eczema 06/22/2012 07/20/2017 Epileptic seizure 12/10/2010 08/16/2018 documented as of this encounter (statuses as of 04/16/2024) Immunizations Name Administration Dates Next Due Pneumococcal Conjugate Vacc, 13 Valent (Prevnar) 06/17/2014 Pneumococcal Conjugate Vacci ne, 20-valent ([id number]) 02/15/2022 Pneumococcal Polysaccharide PPV23 (Pneumovax) 05/19/2016 Seasonal [...] 03/17/2024 6:46 PM Genoveva Vidal, YOHAN * Because of a physical, mental, or [...] in this encounter Progress Notes * Eulalia Lawrence RPh - 04/16/2024 9:16 AM EST Cyclophosphamide RX sent to [facility] to follow up in 2 days for medication education Eulalia Lawrence, PharmD, OP Clinical Pharmacist, [facility] Oral Chemotherapy [facility] 04/16/2024, 9:16 AM Time Spent on Encounter: 6 - 10 minutes Encounter Group: Hematology Encounter Interventions Item Category: Oral Chemotherapy Cyclophosphamide Problem/Rationale: War Plan Review: Clinical Review Pharmacist Intervention(s): Medication prescribed Magnitude of Intervention: Modification of medication for asymtomatic patients (Level 2) documented in this encounter Plan of Treatment Upcoming Encounters Date Type Department Care Team (Late st Contact Info) Description 04/18/2024 9:15 AM EST Pharmacy Pharmacy Hematology Oncology [address] [address] [facility] Hem/Onc [facility] [place] [address] 04/22/2024 5:40 PM EST Office Visit Family Medicine [address] [place] [phone] Rahul Tucker MD [address] [place] [address] [place] [address] 04/25/2024 10:45 AM EST Office Visit Hematology/Oncology [place] [address] [place] [phone] Brian Dyson MD 200 [facility] [place] [address] 05/20/2024 6:20 PM EST Office Visit Family Medicine [address] [place] [phone] Rahul Tucker MD [address] [place] [address] [place] [address] 07/17/2024 11:15 AM EDT Procedure Only Urology, [facility] [address] [place] [address] Duglas Tadeo MD [address] [place] [address] Scheduled Procedures Name Priority Associated Diagnoses Date/Ti me ESOPHAGOGASTRODUODENOSCOPY ( EGD), FLEXIBLE, TRANSORAL, DIAGNOSTIC Recall Cirrhosis (HCC) Esophageal varices (HCC) Health Maintenance Due Date Last Done Comments DISCUSS TOBACCO CESSATION (REFER TO SMARTSET #4738) 1950 Hepatitis B Vaccine (1 of 3 - Risk 3-dose series) 2009 Zoster Vaccines (2 of 3) 04/01/2013 02/04/2013, 12/31 Adult Wellness Visit 2015 Depression Screening 12/09/2020 12/10/2019 DTap/Tdap Vaccines (2 - Td or Tdap) 11/16/2021 11/17/2011 COVID-19 Vaccine ( - season) 2023 Influenza [...] Advance Directives occurred with: Patient Care Teams [place] Actor Relationship Specialty Start Date End Date Rahul Tucker MD [address] [place] [address] [place] [address] PCP - General Family Medicine 08/03/18 documented as of this encounter
--- OUTSIDE RECORDS SUMMARY | 2024-05-05 16:46 | External Medical Summary | Summary of Care ---
Author Name Unknown Organization [facility] Address [address] [place] [address] Phone [phone] Care Team Providers Care Service Department Manager Name Role Phone Rahul Tucker MD Primary Care Provide r Reason for Visit * Reason Comments Follow Up Review PET results Encounter Details Date Type Department Care Team (Late st Contact Info) Description 04/10/2024 9:30 AM EST Office Visit Hematology/Oncology [facility] 200 [facility] [place] [phone] Brian Dyson MD 200 [place] [address] Light chain (AL) amyloidosis (HCC)* Allergies Active [...] (Prevnar) 06/17/2014 Pneumococcal Conjugate Vacci ne, 20-valent ([id number]) 02/15/2022 Pneumococcal Polysaccharide PPV23 (Pneumovax) 05/19/2016 Seasonal [...] Sign Reading Time Taken Comments Blood Pressure 89/55 04/10/2024 9:23 AM EST Pulse 72 04/10/2024 9:23 AM EST Temperature 36.4 C (97.6 F) 04/10/2024 9:23 AM ES T Respiratory Rate - - Oxygen Saturation 92% 04/10/2024 9:23 AM EST Inhaled Oxygen Concentration - - Weight 95.7 kg (211 lb) 04/10/2024 9:23 AM EST Height - - Body Mass Index 30.28 03/17/2024 6:46 PM EST documented in this [...] Progress Notes * Brian Dyson MD - 04/10/2024 9:30 AM EST [facility]ematology[facility] [place] [address] DRE VERA MR # [id number] :1950 73 years old male, Date of consultation:02/29/2024 DIAGNOSIS: 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 He has significant proteinuria. Urine protein/creatinine ratio was around 26 g. ESRD, currently on hemodialysis. Bone marrow examination done on 02/03/2024 --> plasma cells about 10 to 20%, no amyloidosis noted IgH (14q32) Rearrangement - Detected CCND1(BCL1)/IgH t(11;14) Detected CURRENT TREATMENT: Planning for systemic chemotherapy with Velcade, cyclophosphamide, Darzalex Faspro and the Decadron. He will continue heparin prophylaxis as he is at high-risk for thrombotic complications. DIAGNOSTIC WORKUP: He says that he had a COVID-19 infection earlier in March of 2023 and he is not feeling quite well since then. In June of 2023, he had low blood pressure, he was passing out, he was seen at [facility] ER, CT head was unremarkable, CT chest with PE protocol on 06/14/2023: Unremarkable, normal cardiac size noted, no pericardial effusion. No PE. Subcentimeter mediastinal lymph nodes noted. Once again he was admitted in October 2023 for increasing leg edema, there was no evidence of DVT on Doppler evaluation CT scan of the abdomen pelvis with contrast on 11/19/2023 at [facility] showed findings suggestive of nodular counter of the liver consistent with cirrhosis, no liver or spleen masses. Blood workup showed normal WBC, normal hemoglobin level, Platelet count is slightly higher side around 450 to 405962 range. Urine showed significant protein. (4+). PT [...] findings. 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 because of worsening renal failure, underwent kidney biopsy, it showed findings suggestive of AL amyloidosis. Currently he is in the residential, he came to clinic in the wheelchair, leg edema is present on the right side, left above-knee amputation noted, shortness of breath, feeling tired, fair appetite, current weight around 211 lb. No fever. He has not much ambulating. Past Medical History: Diagnosis Date Buerger's disease [...] TUNNEL SURGERY 2011 right 2011 COLONOSCOPY 06/03/2015 [place]--polyps--benign DENTAL SURGERY PROCEDURE NEC Acra teeth removed EGD, FLEXIBLE, DIAGNOSTIC 12/11/2023 mild portal hypertensive gastropathy/recall 2 years/ESOPHAGOGASTRODUODENOSCOPY (EGD), FLEXIBLE, TRANSORAL, DIAGNOSTIC performed by Dolores Edmonds MD at ENDOSCOPY [facility] IR BIOPSY 03/21/2024 IR VENOUS ACCESS NON-MEDIPORT 03/21/2024 PATIENT EDU, LUMBAR LAMINECTOMY 1986 Back surgery at [facility] [place] ARTHROPLASTY GLENOHUMERAL JOINT TOTAL SHOULDER Right 11/2021 [...] 1 Tablet by mouth in the morning. Gabapentin 100 MG Oral Capsule (Neurontin) Take 1 Capsule by mouth at bedtime. 30 Capsule 5 Atorvastatin Calcium 40 MG Oral Tablet (Lipitor) Take 1 Tablet by mouth every afternoon. 30 Tablet 5 Torsemide 20 MG Oral Tablet (Demadex) Take 2 Tablets by mouth in the morning. 60 Tablet 5 Bisacodyl 5 MG Oral Tablet Delayed Release (Dulcolax) Take 1 Tablet by mouth twice per day (morning, before bedtime). 60 Tablet 5 Polyethylene Glycol 3350 17 [...] 1 Tablet before bedtime. 90 Tablet 5 LiquaCel Oral Liquid Take 30 mL by mouth in the morning and 30 mL before bedtime. 1920 mL 11 No current facility-administered medications [...] on file Social Needs Financial Resource Strain: Not on file Food Insecurity: No Food Insecurity (03/17/2024) Food Insecurity Do you need food for [...] on file Transportation Needs: No Transportation Needs (03/17/2024) Transportation Needs Do you have trouble getting [...] 0-17 years): Not on file Social Connections: Not on file Housing Stability: Low Risk (03/17/2024) Housing Stability Do you currently live in a long term or have no steady place to sleep at night? (Adult - for ages 18 years and over): Not on file Do you think you are at risk [...] ages0-17 years): Not on file On Exam: There were no vitals taken for this visit. Constitutional: Patient is alert, cooperative and oriented [...] Reviewed blood workup done on 04/19/2024: -WBC 99134, Hemoglobin and hematocrit - 9.1/27.9, Platelet count of 578918 -MCV 94 -BUN/Creat: 27/2.8, AST 104, ALT [...] worseningrenal function test, he was transferred at [facility], had kidney biopsy which confirmed the diagnosis of AL amyloidosis, reviewed the bone marrow findings with him and his . He had left leg [id number] amputation for arterial clot. I reviewed with [...] subcutaneous injections after the hemodialysis is done. We talked about overall treatment goal which would be palliative and not curative. He is at high-risk for thrombotic complications, he will continue subcutaneous heparin prophylaxis. Once we start on treatment will see [...] Nursing Notes * Yaima Urias CMA - 04/10/2024 9:24 AM EST Patient identifed by name and [...] it for you? ALREADY ACTIVE Filed Vitals: 04/10/24 0923 BP: 89/55 Pulse: 72 Temp: 36.4 C (97.6 F) TempSrc: Tympanic SpO2: 92% Weight: 95.7 kg (211 lb) Patient was instructed to not get [...] 9:15 AM EST Pharmacy Pharmacy Hematology Oncology [facility] [address] [place] [address] [facility], [facility] Hem/Onc [address] [place] [address] 04/22/2024 5:40 PM EST Office Visit Family Medicine [address] [phone] Rahul Tucker MD [address] [place] [address] [place] [address] 04/25/2024 10:45 AM EST Office Visit Hematology/Oncology [facility] [address] [place], [place] [address] [phone] Brian Dyson MD 200 [facility] [place] [address] 05/20/2024 6:20 PM EST Office Visit Family Medicine [address] [place] [phone] Rahul Tucker MD [address] [place] [address] [place] [address] 07/17/2024 11:15 AM EDT Procedure Only Urology, [facility] 132 [facility] [place] [address] Duglas Tadeo MD [address] [place] [address] Scheduled Procedures Name Priority Associated Diagnoses Date/Ti me ESOPHAGOGASTRODUODENOSCOPY ( EGD), FLEXIBLE, TRANSORAL, DIAGNOSTIC Recall Cirrhosis (HCC) Esophageal varices (HCC) Health Maintenance Due Date Last Done Comments DISCUSS TOBACCO CESSATION (REFER TO SMARTSET #3291) 1950 Hepatitis B Vaccine (1 of 3 - Risk 3-dose series) 2009 Zoster Vaccines (2 of 3) 04/01/2013 02/04/2013, 12/31 Adult Wellness Visit 2015 Depression Screening 12/09/2020 12/10/2019 DTap/Tdap Vaccines (2 - Td or Tdap) 11/16/2021 11/17/2011 COVID-19 Vaccine ( season) 2023 Influenza Vaccine [...] Advance Directives occurred with: Patient Care Teams Service Department Manager Relationship Specialty Start Date End Date Rahul Tucker MD [address] [place] [address] [place] [address] PCP - General Family Medicine 08/03/18 documented as of this encounter
--- OUTSIDE RECORDS SUMMARY | 2024-05-05 16:46 | External Medical Summary | Summary of Care ---
Author Name Unknown Organization [facility] Address [address] [place] [address] Phone [phone] Care Team Providers Care Back Shoe Worker Name Role Phone Rahul Tucker MD Primary Care Provide r Reason for Referral * Evaluate & Treat - Unlimited Visits (Within 10 days (routine)) - Authorized Specialty Diagnoses / Procedures Referred By David sharp Referred To Contact Pharmacist / Pharmacy Diagnoses Light chain (AL) amyloidosis (HCC) Eulalia Bautista, [facility] [address] [place] [address] Phone: tel: fax: Referral ID Status Reason Start Date Expiration Date Visits Requested Visits Authorized [id number] Authorized Specialty Services Required 4 99 99 Question Answer Referral Priority Within 10 days (routine) Where should this appointment be scheduled? [facility] Referring Provider Role: Specialist Specialty: Heme/Onc Reason for Referral: Oral Chemo Has consent been obtained for new oral chemo agent(s)? Yes Comments ORAL CHEMOTHERAPY MTDM MONITORING REFERRAL This patient is being referred to the Oral Chemotherapy Clinic for medication co-management. The planned duration of treatment is: Until disease progression/toxicity Please start oral chemotherapy: Once therapy has arrived from specialty pharmacy Oral Chemotherapy Monitoring will continue until one of the following discharge criteria has been met. The provider will be informed if any of these occur. 1. Disease progression. 2. Patient non-compliance 3. Compliance and tolerating treatment well without major toxicities with routine provider follow up. 4. Completion of therapy. Additional Comments: N/a By my signature, I understand that my patient will have their medication therapy managed by the [facility] Medication Therapy Disease Management Clinic ([facility]) per established policies, procedures, and protocols. I also certify that this referral may serve as an initiation of service for the management of drug therapy in the above noted patient. [facility] providers will be responsible for scheduling patient visits, obtaining appropriate laboratory studies, and adjusting medication management therapy per patient's need, in addition to those roles spelled out in the clinic policy, procedures, and drug management protocols. I understand that the service provided by the [facility] Clinic is voluntary and have informed patient that they can refuse the service at their discretion. I am aware that the [facility] Clinic will provide me with a copy of the patient encounter via my [employer]. I authorize the [facility] Clinic to carry out these activities on my behalf. I consider this program to be a necessary part of the patient's medical care. Encounter Details Date Type Department Care Team (Late st Contact Info) Description 04/12/2024 Orders Only Hematology/Oncology [facility] 200 [facility] [place], [place] [phone] Brian Dyson MD 200 [place] [address] Light chain (AL) amyloidosis (HCC)* Allergies Active [...] (Prevnar) 06/17/2014 Pneumococcal Conjugate Vacci ne, 20-valent ([id number]) 02/15/2022 Pneumococcal Polysaccharide PPV23 (Pneumovax) 05/19/2016 Seasonal [...] encounter Miscellaneous Notes * Addendum Note - Eulalia Bautista RPh - 04/16/2024 9:15 AM ESTAddended by: EULALIA BAUTISTA on: 04/16/2024 09:15 AM Modules accepted: Orders documented in this encounter Plan of Treatment Upcoming Encounters Date Type Department Care Team (Late st Contact Info) Description 04/18/2024 9:15 AM EST Pharmacy Pharmacy Hematology Oncology [address] [address] [facility] [place] [place], [facility] Hem/Onc [address] [place] [address] 04/22/2024 5:40 PM EST Office Visit Family [address] [phone] Rahul Tucker MD [address] [place] [address] [place] [address] 04/25/2024 10:45 AM EST Office Visit Hematology/Oncology [facility] [place] [address] [facility] [place] [phone] Brian Dyson MD 200 [facility] [place] [address] 05/20/2024 6:20 PM EST Office Visit Family [address] [phone] Rahul Tucker MD [address] [place] [address] [place] [address] 07/17/2024 11:15 AM EDT Procedure Only Urology, [facility] [address] [place] [address] Duglas Tadeo MD [address] [place] [address] Scheduled Orders Name Type Priority Associated Diagnoses Orde r Schedule CBC WITH WBC DIFFERENTIAL Lab STAT Light chain (AL) amyloidosis (HCC) Every Month for 12 Occurrences starting 04/16/2024 until 04/16/2025 COMPREHENSIVE METABOLIC PANEL Lab STAT Light chain (AL) amyloidosis (HCC) Every Month for 12 Occurrences starting 04/16/2024 until 04/16/2025 URINALYSIS, REFLEX TO MICROSCOPIC Lab STAT Light chain (AL) amyloidosis (HCC) Every Month for 12 Occurrences starting 04/16/2024 until 04/16/2025 Scheduled Procedures Name Priority Associated Diagnoses Date/Ti me ESOPHAGOGASTRODUODENOSCOPY ( EGD), FLEXIBLE, TRANSORAL, DIAGNOSTIC Recall Cirrhosis (HCC) Esophageal varices (HCC) Scheduled Referrals Name Type Priority Associated Diagnoses Orde r Schedule PHARMACIST MEDS THERAPY MGMT REFERRAL OP Referral Within 10 days (routine) Light chain (AL) amyloidosis (HCC) Ordered: 04/16/2024 Health Maintenance Due Date Last Done Comments DISCUSS TOBACCO CESSATION (REFER TO SMARTSET #8214) 1950 Hepatitis B Vaccine (1 of 3 [...] Advance Directives occurred with: Patient Care Teams Back Shoe Worker Relationship Specialty Start Date End Date Rahul Tucker MD [address] [place] [address] [place] [address] PCP - General Family Medicine 08/03/18 documented as of this encounter
--- OUTSIDE RECORDS SUMMARY | 2024-05-05 16:46 | External Medical Summary | Summary of Care ---
Author Name Unknown Organization [facility] Address [address] [place] [address] Phone [phone] Care Team Providers Care Composite Engineer Name Role Phone Rahul Tucker MD Primary Care Provide r Reason for Visit * Reason Comments Dosage Adjustment Via Phone (anticoag Cl inic) * Evaluate & Treat - Unlimited Visits (Within 24 hrs (call dept; emergent)) - Authorized Specialty Diagnoses / Procedures Referred By Contrajendra t Referred To Contact ANTI-COAG CLINIC / Pharmacy Diagnoses GARY (acute kidney injury) (HCC) Darby Mayorga MD [address] [place] [address] Phone: tel: fax: Referral ID Status Reason Start Date Expiration Date Visits Requested Visits Authorized [id number] Authorized Specialty Services Required 4 10/16/2024 99 99 Encounter Details Date Type Department Care Team (Latest Contact Info) Description 04/19/2024 5:10 PM EST Anticoagulation Pharmacy, [address] [place] [address] [place] [address] Anticoagulation management encounter*; GARY (acute kidney injury) (HCC) Allergies Active Allergy Reactions Criticality Noted Date Comments Azithromycin Hives 12/10/2010 documented as of this encounter (statuses as of 04/19/2024) Medications Finasteride 5 MG Oral Tablet (Proscar) [...] mouth at bedtime. 30 Capsule 5 03/29/20 Active Atorvastatin Calcium 40 MG Oral Tablet [...] as of this encounter (statuses as of 04/19/2024) Active Problems Problem Noted Date Diagnosed Date [...] as of this encounter (statuses as of 04/19/2024) Resolved Problems Problem Noted Date Diagnosed Date Resolved Date Carpal tunnel syndrome 06/17/201402/08 Allergic rhinitis 06/17/2014 02/08/2018 Adjustment disorder with depressed mood 12/10/2013 07/20/2017 Eczema 06/22/2012 07/20/2017 Epileptic seizure 12/10/2010 08/16/2018 documented as of this encounter (statuses as of 04/19/2024) Immunizations Name Administration Dates Next Due Pneumococcal Conjugate Vacc, 13 Valent (Prevnar) 06/17/2014 Pneumococcal Conjugate Vacci ne, 20-valent ([id number]) 02/15/2022 Pneumococcal Polysaccharide PPV23 (Pneumovax) 05/19/2016 Seasonal [...] this encounter Progress Notes * Brittney Villela, [facility] - 04/19/2024 12:43 PM EST Patient Phone Numbers Patient referred to [facility] for anticoagulation management by Darby Mayorga MD Anticoagulant: Warfarin Indication: Hypercoagulable state. Per chart review, hx of PE/DVT Goal: 2-3 Duration: Indefinite Per 04/19 TE, Not currently on any anticoagulation but with strong clotting hx and risk ff above. During his [facility] admission I had d/w and pt his thrombophilia and likely need for AC; he was d/c from extended admission w/o this. called dialysis unit to question if AC needed. I reviewed his chart, d/w education supervisor covering for Dr Dyson who is OOO, and based on this will refer to AC clinic for urgent coumadin start; no need to bridge w/ SQ heparin per heme. Called and reviewed case with Dr Leigh. Will plan to start warfarin today, however in future will need to obtain updated ACC referral from hematology for continued anticoagulation management. Currently working with Dr Dyson, upcoming OV on 04/25. Called and spoke to spouse. Reviewed role of ACC and Rph in patient's care. Provided with dosing aswell as toll-free ACC number to call with any questions. Will plan to start at 2.5mg daily, recheckx3 days at the lab. Brittney Villela [facility] Medication Therapy Management Clinic 04/19/2024 12:43 PM documented in this encounter Plan of Treatment Upcoming Encounters Date Type Department Care Team (Late st Contact Info) Description 04/22/2024 9:15 AM EST Pharmacy Pharmacy Hematology Oncology [address] [address] [facility] Hem/Onc [facility] [place] [address] 04/22/2024 5:40 PM EST Office Visit Family Medicine [address] [place] [phone] Rahul Tucker MD [address] [place] [address] [place] [address] 04/23/2024 7:00 AM EST Anticoagulation Pharmacy, [address] [place] [address] [place] [address] 04/25/2024 10:45 AM EST Office Visit Hematology/Oncology [facility] 200 [facility] [place] [phone] Brian Dyson MD [address] [place] [address] 05/20/2024 6:20 PM EST Office Visit Family Medicine [address] [place] [phone] Rahul Tucker MD [address] [place] [address] [place] [address] 07/17/2024 11:15 AM EDT Procedure Only Urology, [facility] [address] [place] [address] Duglas Tadeo MD [address] [place] [address] Scheduled Orders Name Type Priority Associated Diagnoses Orde r Schedule PT INR Lab Routine GARY (acute kidney injury) (HCC) Anticoagulation management encounter 26 Occurrences starting 04/19/2024 until 04/19/2025 INR FINGERSTICK, POINT OF CARE Point of Care Testing - Unsolicited Results STAT GARY (acute kidney injury) (HCC) Anticoagulation management encounter Every 2 Weeks for 26 Occurrences starting 04/19/2024 until 04/19/2025 Scheduled Procedures Name Priority Associated Diagnoses Date/Ti [...] Advance Directives occurred with: Patient Care Teams Composite Engineer Relationship Specialty Start Date End Date Rahul Tucker MD [address] [place] [address] [place] [address] PCP - General Family Medicine 08/03/18 documented as of this encounter
--- OUTSIDE RECORDS SUMMARY | 2024-05-05 16:46 | External Medical Summary ---
Author Name Unknown Address Unknown Organization [id number]:LABORATORY [facility] - [address] [facility] [place] [address] Laboratory Report Ordering Provider Test Date Status YOLA CHURCH 04/22/2024 14:18:11 Final Observation Date Value Abnormality Reference (Units ) Status BUN 04/22/2024 14:18:11 43 Above high normal 6-20 (mg/dL) Final Creatinine 04/22/2024 14:18:11 3.5 Above high normal 0.6-1.2 (mg/dL) Final Glomerular filtration rate/1.73 sq M.predicted [Volume Rate/Area] in Serum, Plasma or Blood by Creatinine-based formula (CKD-EPI) 04/22/2024 14:18:11 18 Below low normal >=60 (mL/min) Final eGFR is calculated based on the CKD-EPI 2020 equation. Sodium 04/22/2024 14:18:11 140 135-146 (m mol/L) Final Potassium 04/22/2024 14:18:11 4.2 3.5-5.1 (m mol/L) Final Cl 04/22/2024 14:18:11 99 98-107 (mm ol/L) Final CO2 04/22/2024 14:18:11 26 22-32 (mmo l/L) Final Anion gap 04/22/2024 14:18:11 15 7-15 (mmol /L) Final Glucose 04/22/2024 14:18:11 92 70-120 (mg /dL) Final Albumin 04/22/2024 14:18:11 1.7 Below low normal 3.8 -5.0 (g/dL) Final AST (Aspartate aminotransferase) 04/22/2024 14:18:11 68 Above high normal 10-50 (U/L) Final Alk Phos 04/22/2024 14:18:11 1710 Above high normal 35 -130 (U/L) Final Bilirubin, Total 04/22/2024 14:18:11 0.4 <=1 .2 (mg/dL) Final Calcium 04/22/2024 14:18:11 7.7 Below low normal 8.4 -10.2 (mg/dL) Final Protein 04/22/2024 14:18:11 5.5 Below low normal 6.0 -8.3 (g/dL) Final ALT (Alanine aminotransferase) 04/22/2024 14:18:11 35 10-50 (U/L) Sarthak baez Performing Location LABORATORY [facility] - [facility] [address] [place]. [facility] [address]
--- OUTSIDE RECORDS SUMMARY | 2024-05-05 16:46 | External Medical Summary ---
Author Name Unknown Address Unknown Organization K01:[facility] [facility] [address] [facility] [address] [facility] [address] Laboratory Report Ordering Provider Test Date Status YOLA CHURCH 04/22/2024 14:18:11 Final Observation Date Value Abnormality Reference (Units ) Status [place] light chains, Free, Serum 04/22/2024 14:18:11 308.00 Above high normal 3.30-19.40 (mg/L) Final Lambda light chains, free, Serum 04/22/2024 14:18:11 143.09 Above high normal 5.71-26.30 (mg/L) Final KAPPA LAMBDA FLC RATIO 04/22/2024 14:18:11 2.15 Above high normal 0.26-1.65 Final Performing Location [facility] [place] [facility] [place] [address]
--- OUTSIDE RECORDS SUMMARY | 2024-05-05 16:46 | External Medical Summary | Summary of Care ---
Author Name Unknown Organization [facility] Address [address] [place] [address] Phone [phone] Care Team Providers Care Dynamics Ax Consultant Name Role Phone Rahul Tucker MD Primary Care Provide r Reason for Visit * Reason Comments Medication Management Encounter Details Date Type Department Care Team (Late st Contact Info) Description 04/15/2024 1:15 PM [facility] Pharmacy Pharmacy Hematology Oncology [facility] [address] [place] [address] [facility] [place] [facility] Hem[facility]Onc [address] [place], [place] [id number] Light chain (AL) amyloidosis (HCC)* Allergies Active [...] before bedtime. 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 Jeane Dyson Additional Therapy: Bortezomib Daratumumab Dexamethasone Supportive Care Meds: Ondansetron Prochlorperazine Prophylactic Meds: Acyclovir Bisacodyl Miralax Senokot Docusate Relevant Chronic Medications: Category Medications Pertinent Notes Antihypertensives Torsemide 40mg daily Per PCP Anticoagulation ASA 81mg daily Pt hx The Hematology/Oncology Oral Chemotherapy Clinic will assess medication compliance at each patient encounter Assessment and Plan: Yes/no Date Action Taken Hope plan entered? yes 04/12/24 Consent completed? yes 04/10/24 Intro/med rec completed? yes 04/15/24 Precert completed? yes 04/12/24 Test claim completed? yes 04/12/24 GSP- medicare B billing - copay to be determined at time of fillwhen supplemental coverage is verified Financial assistance needed? Physician signature? yes 04/12/24 Rx released? Education completed? [facility] will contact patient once med shipped/received to complete medication education Please refer to initial intake note for detailed review of regimen and patient- specific education points Ning Marquez Repeat Chief III Hematology Oncology Oral Chemotherapy Clinic Medication Therapy Disease Management [facility] 04/15/2024 10:52 AM Time Spent on Encounter: < 5 minutes * Ning Marquez, [facility] - 04/15/2024 10:16 AM EST NEW REFERRAL TO ORAL CHEMO CLINIC/MEDICATION RECONCILIATION NOTE Dre Vera [id number] Patient Phone Numbers Communication: Spoke to: Treatment: Medication: Cyclophosphamide (Cytoxan) Indication/Staging/Diagnosis Code: 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 Jeane Dyson Provider has consented patient: Yes Patient was introduced to Oral Chemotherapy Clinic: OCC is a free service for patients receiving oral chemo therapy. We are Pharmacists & Pharmacy Technicians, who are a part of hematology & oncology care across the [facility] system offering telephone based appointments from the comfort of your own home. Pharmacists are available Monday-Monday from 8am - 4:30pm. After 4:30pm, non- urgent messages can be left on the pharmacist voicemail, and urgent calls/questions/concerns should be directed to their oncologist office directly (number provided). In case of an emergency, patient is awareto call 911 or travel to nearest emergency department. Communicated to patient: Pharmacists will provide education about your medication, manage oral chemotherapy side effects & review labs. All information will be shared & available to your oncologist. Explained to patient: once they decide on a treatment with their Oncologist, a Pharmacist will review the treatment plan to ensure correct dosing, review labs & medications to prevent any interactions. Medication authorization is submitted to your insurance. Once approved, your Rx will be sent to the Pharmacy determined by your insurance plan. Specialty Pharmacy will contact you to arrange delivery & discuss co-payment and any assistance options, if required. A Pharmacist will contact you to provide medication education, follow up periodically to review lab results & to assess/manage side effects. Patient was reassured the process to obtain medication can take several days-weeks. Patient was informed that hepatitis B screening must be completed prior to initiation of treatment.- Completed Patient has given verbal consent that staff from the Oral Chemotherapy Clinic can speak to Patient, Jackson Curran and Jt Bobo regarding their treatment Patient has given verbal consent that staff from the Oral Chemotherapy Clinic can leave a voicemailwith treatment-related information: Yes This information can be left on Cell Performed medication reconciliation with patient; pharmacist will be in touch if there are any druginteractions with oral chemo. - no medications added to med list. Patient voiced understanding on all accounts. She had no questions or concerns today. Ning Marquez Repeat Chief III Hematology Oncology Oral Chemotherapy Clinic Medication Therapy Disease Management [facility] 04/15/2024 10:49 AM Time Spent on Encounter: 21 - 25 minutes Encounter Group: Hematology Encounter Interventions Item Category: Oral Chemotherapy Cyclophosphamide Problem/Rationale: Education: Clarification Pharmacist Intervention(s): Medication reconciliation Magnitude of Intervention: Monitoring with no interventions (Level 0) documented in this encounter Plan of Treatment Upcoming Encounters Date Type Department Care Team (Late st Contact Info) Description 04/16/2024 9:15 AM EST Pharmacy Pharmacy Hematology Oncology [address] [address] [facility] [place] [facility] Hem/[facility]c [facility] [place] [address] 04/18/2024 9:15 AM EST Pharmacy Pharmacy Hematology Oncology [place] [address] [place] [address] [facility] [place] [facility] Hem/Onc [address] [place] [address] 04/22/2024 5:40 PM EST Office Visit Family [address] [place] [phone] Rahul Tucker MD [address] [place] [address] [place] [address] 04/25/2024 10:45 AM EST Office Visit Hematology/Oncology [address] [place] [phone] Brian Dyson MD [address] [facility] [place] [address] 05/20/2024 6:20 PM EST Office Visit Family [address] [place] [phone] Rahul Tucker MD [address] [place] [address] [place] [address] 07/17/2024 11:15 AM EDT Procedure Only Urology, [facility] [address] [facility] [place] [address] Duglas Tadeo MD [address] [place] [address] Scheduled Procedures Name Priority Associated Diagnoses Date/Ti me ESOPHAGOGASTRODUODENOSCOPY ( EGD), FLEXIBLE, TRANSORAL, DIAGNOSTIC Recall Cirrhosis (HCC) Esophageal varices (HCC) Health Maintenance Due Date Last Done Comments DISCUSS TOBACCO CESSATION (REFER TO SMARTSET #1262) 1950 Hepatitis B Vaccine (1 of 3 [...] Advance Directives occurred with: Patient Care Teams Dynamics Ax Consultant Relationship Specialty Start Date End Date Rahul Tucker MD [address] [place] [address] [place] [address] PCP - General Family Medicine 08/03/18 documented as of this encounter
--- OUTSIDE RECORDS SUMMARY | 2024-05-05 16:46 | External Medical Summary | Continuity of Care Document ---
Author Name Unknown Organization [facility] [address] Address [address] [place] [address] [phone] Care Team Providers Care Electrician Chief Name Role Phone Rahul Tucker Primary Care Physician [phone] [id number] Date(s): 04/10/24 - 04/10/24 [facility] [address] [place] [address] [phone] Encounter Diagnosis S/P above knee amputation(Discharge Diagnosis) - 04/10/24 Discharge Disposition: Home or Self Care Attending Physician: MD Tucker Doriann L Referring Physician: ANIL Parikh Lynn Allergies, Adverse Reactions, Alerts Substance Criticality Severity Reaction Reaction Severity Status Zithromax Z-Arnold hives Acti ve Assessment and Plan Extracted from: Title:Clinical Document Author:ANIL Parikh Lynn Date:04/10/24 [facility] OUTPATIENT NOTE Name: BETY VERA V Patient Number: [id number] : 1950 Date of Service: 04/10/2024 Chief Complaint: _Follow-up for left leg AKA HPI: _Mr. Vera is an elderly male who presents to Dr. Smith's vascular surgery clinic today for a 1 week follow-up visit regarding his left leg above-knee amputation site. He initially presented postoperatively last week, at which time he was noted to have significant edema in the stump, and it was felt to be prudent to wait another week prior to staple removal. Patient states that he is having significantly less drainage than previous, and that the swelling has gone down considerably. He denies any fevers chills nausea vomiting or other new concerns. Current Home Meds: (Last Updated 04/10 10:50) aspirin (Aspir 81) 81 mg PO Daily atorvastatin (atorvastatin 40 mg oral tablet) 40 mg PO Daily bisacodyl (Bisac-Evac 5 mg oral delayed release tablet) 5 mg PO Daily PRN: as needed for constipation docusate-senna (docusate-senna 50 mg-8.6 mg oral tablet) 1 tab PO tid finasteride (finasteride 5 mg oral tablet) 5 mg PO Daily HAZARDOUS MEDICATION | tablet: green Women of childbearing age should not touch or handle broken tablets. - Luis Del Valle 04/04 15:17 gabapentin (gabapentin 100 mg oral capsule) 100 mg PO qhs heparin (heparin 5000 units/mL injectable solution) 5,000 unit subQ q12h iron sucrose (Venofer 20 mg/mL intravenous solution) 100 mg IV q7days with dialysis M, W, F latanoprost ophthalmic (latanoprost 0.005% ophthalmic solution) 1 drop both eyes Daily Store intact bottles under refrigeration. Once opened, the container may be stored at room temperature for 6 weeks. - Luis Del Valle 04/04 15:17 meloxicam (meloxicam 15 mg oral tablet) 15 mg PO Daily methylPREDNISolone (Medrol Dosepak 4 mg oral tablet) Take as directed on package labeling for 6 days. oxyCODONE (oxyCODONE 10 mg oral tablet) 10 mg PO q12h PRN: Pain polyethylene glycol 3350 (polyethylene glycol 3350 oral powder for reconstitution) 17 g PO Daily torsemide (torsemide 40 mg oral tablet) 40 mg PO Daily Allergies and Sensitivities: Zithromax Z-Arnold(hives) Past Medical History: Problems: S/P above knee amputation Lumbar degenerative disc disease Lumbar radiculopathy Back pain OBJECTIVE Vitals: Last Updated 04/10/24 10:50 Date Temp BP Location Pulse RR SpO2 Pain 04/10/24 0 04/04/24 112/50 Left Arm 77 97 0 09/05/16 7 Vital Signs are the last 3 documented. No Orthostatic Data Available Height and Weight: Last Updated 09/30/15 09:29 Date BMI Wt(kg) Wt(lb) Method Ht(cm) (ft-in) Method 09/30/15 33 104.33 230 177.8 5-10 Heights and Weights are the last 3 documented. Physical Exam Constitutional: In general patient is a mild chronic ill-appearing elderly male no distress. Is alert and oriented by 4 deficits. His left leg above-knee potation site has minimal edema at this point. His suture line is clean dry and intact with laly. There is a small amount of bloody drainage from the lateral aspect, this appears consistent with liquefying hematoma. There is no erythema, ecchymosis, or warmth. ASSESSMENT: _ PLAN: _ 1 ) _status post left leg AKA Patient is overall doing well since his recent procedure. His AKA site is healing as expected. The edema has improved. The laly were removed without difficulty or wound dehiscence. Steri-Strips were placed over the wound and a dry dressing was placed to the lateral aspect where the bloody drainage is occurring. Patient was encouraged to change the dressings daily and to stop placing a dressing once there is no further drainage. This should improve over time. We will have him return here in another 4 weeks or so for reevaluation. He is advised to call any questions or concerns. Is agreeable to this plan. Thank you for letting us participate in the care of this patient. Medications Aspir 81 Start: 09/30/15 9:34:00 AM EDT, 81 mg =, PO, Daily Start Date: 09/30/15 Status: Ordered atorvastatin 40 mg oral tablet Start: 04/04/24 3:14:00 PM EST, 1 tab, PO, Daily Start Date: 04/04/24 Status: Ordered Bisac-Evac 5 mg oral delayed release tablet Start: 04/04/24 3:15:00 PM EST, 1 tab, PO, Daily, PRN: as needed for constipation Start Date: 04/04/24 Status: Ordered docusate-senna 50 mg-8.6 mg oral tablet Start: 04/04/24 3:13:00 PM EST, 1 tab, PO, tid Start Date: 04/04/24 Status: Ordered finasteride 5 mg oral tablet Start: 04/04/24 3:14:00 PM EST, 1 tab, PO, Daily Start Date: 04/04/24 Status: Ordered gabapentin 100 mg oral capsule Start: 04/04/24 3:14:00 PM EST, 1 cap, PO, qhs Start Date: 04/04/24 Status: Ordered heparin 5000 units/mL injectable solution Start: 04/04/24 3:17:00 PM EST, 5,000 unit =, subQ, q12h Start Date: 04/04/24 Status: Ordered latanoprost 0.005% ophthalmic solution Start: 04/04/24 3:15:00 PM EST, 1 drop, both eyes, Daily Start Date: 04/04/24 Status: Ordered polyethylene glycol 3350 oral powder for reconstitution Start: 04/04/24 3:15:00 PM EST, 17 g =, PO, Daily Start Date: 04/04/24 Status: Ordered torsemide 40 mg oral tablet Start: 04/04/24 3:15:00 PM EST, 1 tab, PO, Daily Start Date: 04/04/24 Status: Ordered Venofer 20 mg/mL intravenous solution Start: 04/04/24 3:17:00 PM EST, 100 mg =, IV, q7days, with dialysis M, W, F Start Date: 04/04/24 Status: Ordered Mental Status 04/10/24 Barriers to Learning one year None evide nt Mandatory Health Literacy Documentation Yes Health Literacy Communication Barriers N ever Primary Language Malaysian Problem List Condition Confirmation Course Effective Dates Status H ealth Status Informant Back pain Confirmed Active Lumbar degenerative disc disease Confirmed Active S/P above knee amputation Confirmed Active Lumbar radiculopathy Confirmed Active Diagnosis Diagnosis Type Effective Dates Health Status Clinical Service Informant S/P above knee amputation Discharge Diagnosis 04/10/24 Procedures Procedure Date Related Diagnosis Body Site Status LLE AKA 03/15/24 Completed LLE Atherectomy SFA and AT, ship's captain/stent SFA, TPA infusion 03/14/24 Completed Back Completed CTS (carpal tunnel syndrome) Completed Shoulder Completed Social History Social History Type Response Smoking Status Former Smoker, quit > 1 yr Sex Male Sex Representation Male (finding) [facility] Outpt Note * ANIL Parikh Lynn: PERFORM Event Display: [facility] Outpt Note Authored Date: [id number] [facility] OUTPATIENT NOTE Name: BETY VERA V Patient Number: [id number] : 1950 Date of Service: 04/10/2024 Chief Complaint: _Follow-up for left leg AKA HPI: _Mr. Vera is an elderly male who presents to Dr. Smith[facility] vascular surgery clinic today fora 1 week follow-up visit regarding his left leg above- knee amputation site. He initially presented postoperatively last week, at which time he was noted to have significant edema in the stump, and itwas felt to be prudent to wait another week prior to staple removal. Patient states that he is having significantly less drainage than previous, and that the swelling has gone down considerably. He denies any fevers chills nausea vomiting or other new concerns. Current Home Meds: (Last Updated 04/10 10:50) aspirin (Aspir 81) 81 mg PO Daily atorvastatin (atorvastatin 40 mg oral tablet) 40 mg PO Daily bisacodyl (Bisac-Evac 5 mg oral delayed release tablet) 5 mg PO Daily PRN: as needed for constipation docusate-senna (docusate-senna 50 mg-8.6 mg oral tablet) 1 tab PO tid finasteride (finasteride 5 mg oral tablet) 5 mg PO Daily HAZARDOUS MEDICATION | tablet: green Womenof childbearing age should not touch or handle broken tablets. - Luis Del Valle 04/04 15:17 gabapentin (gabapentin 100 mg oral capsule) 100 mg PO qhs heparin (heparin 5000 units/mL injectable solution) 5,000 unit subQ q12h iron sucrose (Venofer 20 mg/mL intravenous solution) 100 mg IV q7days with dialysis M, W, F latanoprost ophthalmic (latanoprost 0.005% ophthalmic solution) 1 drop both eyes Daily Store intactbottles under refrigeration. Once opened, the container may be stored at room temperature for 6 weeks. - Luis Del Valle 04/04 15:17 meloxicam (meloxicam 15 mg oral tablet) 15 mg PO Daily methylPREDNISolone (Medrol Dosepak 4 mg oral tablet) Take as directed on package labeling for 6 days. oxyCODONE (oxyCODONE 10 mg oral tablet) 10 mg PO q12h PRN: Pain polyethylene glycol 3350 (polyethylene glycol 3350 oral powder for reconstitution) 17 g PO Daily torsemide (torsemide 40 mg oral tablet) 40 mg PO Daily Allergies and Sensitivities: Zithromax Z-Arnold(hives) Past Medical History: Problems: S/P above knee amputation Lumbar degenerative disc disease Lumbar radiculopathy Back pain OBJECTIVE Vitals: Last Updated 04/10/24 10:50 Date Temp BP Location Pulse RR SpO2 Pain 04/10/24 0 12/05/24 112/50 Left Arm 77 97 0 05/08/17 7 Vital Signs are the last 3 documented. No Orthostatic Data Available Height and Weight: Last Updated 09/30/15 09:29 Date BMI Wt(kg) Wt(lb) Method Ht(cm) (ft-in) Method 09/30/15 33 104.33 230 177.8 5-10 Heights and Weights are the last 3 documented. Physical Exam Constitutional: In general patient is a mild chronic ill-appearing elderly male no distress. Is alert and oriented by 4 deficits. His left leg above-knee potation site has minimal edema at this point. His suture line is clean dry and intact with laly. There is a small amount of bloody drainage from the lateral aspect, this appears consistent with liquefying hematoma. There is no erythema, ecchymosis, or warmth. ASSESSMENT: _ PLAN: _ 1 ) _status post left leg AKA Patient is overall doing well since his recent procedure. His AKA site is healing as expected. The edema has improved. The laly were removed without difficulty or wound dehiscence. Steri-Strips were placed over the wound and a dry dressing was placed to the lateral aspect where the bloody drainage is occurring. Patient was encouraged to change the dressings daily and to stop placing a dressingonce there is no further drainage. This should improve over time. We will have him return here in another 4 weeks or so for reevaluation. He is advised to call any questions or concerns. Is agreeableto this plan. Thank you for letting us participate in the care of this patient. Electronic Signature on File CC: [place] Lehman [address] [place] [id number] * Electronically Reviewed/Signed by: Bonnie Parikh PA-C Author Signature Dt/Tm:04/10/2024 11:29 AM [facility] [place], [address] [place] [address] LM Patient Care team information Care Team Personnel Name: MD Tucker Doriann L Position: Referring DIRECT Member Role: Primary Care Provider Address: [address] [place], [place] [id number] [place] Care Team Related Persons Name: GORDY VERA"
--- OUTSIDE RECORDS SUMMARY | 2024-05-05 16:46 | External Medical Summary | Summary of Care ---
Author Name Unknown Organization [facility] Address [address] [place] [address] Phone [phone] Care Team Providers Care Assistant Produce Manager Name Role Phone Rahul Tucker MD Primary Care Provide r Reason for Visit * Reason Onset Date Comments Medication Refill 04/12/2024 Encounter Details Date Type Department Care Team (Late st Contact Info) Description 04/12/2024 Refill Hematology/Oncology [facility] [address] [facility] [place] [phone] Lynnette Dyson MD [address] [place] [address] Light chain (AL) amyloidosis (HCC)* Allergies Active [...] the morning. 30 Capsule 1 4 Active documented as of this [...] (Prevnar) 06/17/2014 Pneumococcal Conjugate Vacci ne, 20-valent ([id number]) 02/15/2022 Pneumococcal Polysaccharide PPV23 (Pneumovax) 05/19/2016 Seasonal [...] Telephone Encounter - Genoveva Diez RN - 04/16/2024 12:16 PM ESTSigned Prescriptions: Disp Refills Omeprazole 20 MG Oral Capsule Delayed Rele*30 Cap*1 Sig: Take 1 Capsule by mouth in the morning.Authorizing Provider: LYNNETTE DYSON * Telephone Encounter - Lynnette Dysno MD - 04/16/2024 12:10 PM EST E-prescribed. * Telephone Encounter - Genoveva Diez RN - 04/16/2024 10:39 AM ESTPending Prescriptions: Disp Refills Omeprazole 20 MG Oral Capsule Delayed Rele*30 Cap*1 Sig: Take 1 Capsule by mouth in the morning. * Telephone Encounter - Hitesh Worthy RN - 04/12/2024 8:17 AM EST Pended Omeprazole prior to DaraVd. documented in this encounter Plan of Treatment Upcoming Encounters Date Type Department Care Team (Late st Contact Info) Description 04/18/2024 9:15 AM EST Pharmacy Pharmacy Hematology Oncology [facility] [address] [place] [address] [facility] [place] Hem/Onc [facility] [place] [address] 04/22/2024 5:40 PM EST Office Visit [address] [phone] Rahul Tucker MD [address] [place] [address] [place] [address] 04/25/2024 10:45 AM EST Office Visit Hematology/Oncology [facility] [address] [facility] [place] [phone] Lynnette Dyson MD [address] [facility] [place] [address] 05/20/2024 6:20 PM EST Office Visit [address] [phone] Rahul Tucker MD [address] [place] [address] [place] [address] 07/17/2024 11:15 AM EDT Procedure Only Urology, [facility] [address] [facility] [place] [address] Duglas Tadeo MD [address] [place] [id number] Scheduled Procedures Name Priority Associated Diagnoses Date/Ti me ESOPHAGOGASTRODUODENOSCOPY ( EGD), FLEXIBLE, TRANSORAL, DIAGNOSTIC Recall Cirrhosis (HCC) Esophageal varices (HCC) Health Maintenance Due Date Last Done Comments DISCUSS TOBACCO CESSATION (REFER TO SMARTSET #3290) 1950 COVID-19 Vaccine (#1) 1955 Hepatitis B [...] Advance Directives occurred with: Patient Care Teams Assistant Produce Manager Relationship Specialty Start Date End Date Rahul Tucker MD [address] [place] [address] [place] [address] PCP - General Family Medicine 08/03/18 documented as of this encounter
--- OUTSIDE RECORDS SUMMARY | 2024-05-05 16:46 | External Medical Summary ---
Author Name Unknown Address Unknown Organization [id number]:[facility] [place] [facility] [address] [facility] [address] [facility] [address] Laboratory Report Ordering Provider Test Date Status YOLA CHURCH 04/22/2024 14:18:11 Final Observation Date Value Abnormality Reference (Units) Status PARAPROTEIN NORMAL/ABNORMAL 04/22/2024 14:18:11 Abnormal Abnormal Normal Final Protein 04/22/2024 14:18:11 5.5 Below low normal 6.0-8.3 (g/dL) Final Albumin/Protein.total [Pure mass fraction] in Serum or Plasma by Electrophoresis 04/22/2024 14:18:11 1.35 Below low normal 3.30-4.40 (g/dL) Final Alpha 1 globulin/Protein.tota l [Pure mass fraction] in Serum or Plasma by Electrophoresis 04/22/2024 14:18:11 0.26 0.10-0.30 (g/dL) Final Alpha 2 globulin/Protein.tota l [Pure mass fraction] in Serum or Plasma by Electrophoresis 04/22/2024 14:18:11 0.90 0.60-1.00 (g/dL) Final Beta globulin/Protein.tota l [Pure mass fraction] in Serum or Plasma by Electrophoresis 04/22/2024 14:18:11 1.03 0.80-1.30 (g/dL) Final Gamma globulin/Protein.tota l [Pure mass fraction] in Serum or Plasma by Electrophoresis 04/22/2024 14:18:11 1.97 Above high normal 0.70-1.70 (g/dL) Final Monoclonal protein 04/22/2024 14:18:11 1.63 (g/dL) Final Protein Fractions [Interpretation] in Serum or Plasma by Electrophoresis Narrative 04/22/2024 14:18:11 Abnormal. 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 Final Performing Location [facility] [place] [address] [facility] [facility] [address]
--- OUTSIDE RECORDS SUMMARY | 2024-05-05 16:46 | External Medical Summary | Summary of Care ---
Author Name Unknown Organization [facility] Address [address] [place] [address] Phone [phone] Care Team Providers Care Business Unit Manager Name Role Phone Rahul Tucker MD Primary Care Provide r Reason for Visit * Reason Onset Date Comments Medication Refill 04/17/2024 Encounter Details Date Type Department Care Team (Late st Contact Info) Description 04/17/2024 Refill Hematology/Oncology [facility] [address] [facility] [place] [phone] Brian Dyson MD 200 [place] [address] Light chain (AL) amyloidosis (HCC)* Allergies Active Allergy Reactions Criticality Noted Date Comments Azithromycin Hives 12/10/2010 documented as of this encounter (statuses as of 04/17/2024) Medications Finasteride 5 MG Oral Tablet (Proscar) [...] afternoon. 30 Tablet 5 03/29/20 24 Active Torsemide 20 MG Oral Tablet (Demadex) Take 2 Tablets by mouth in the morning. 60 Tablet 5 03/29/20 24 Active Bisacodyl 5 MG Oral Tablet Delayed Release (Dulcolax) Take 1 Tablet by mouth twice per day (morning, before bedtime). 60 Tablet 5 03/29/20 24 Active Polyethylene Glycol 3350 17 GM/SCOOP Oral [...] bedtime. 90 Tablet 5 03/29/20 24 Active LiquaCel Oral Liquid Take 30 mL by mouth in the morning and 30 mL before bedtime. 1920 mL 11 03/29/20 24 025 Active Prochlorperazin e Maleate 10 MG Oral Tablet [...] 24 Active cycloPHOSphamid e 50 MG Oral Tablet (CYTOXAN)Indica tions:Light chain (AL) amyloidosis (HCC) Take 6 Tablets by mouth once a week. 24 Tablet 5 04/17/20 24 Active cycloPHOSphamid e 50 MG Oral Tablet (CYTOXAN)Indica tions:Light chain (AL) amyloidosis (HCC) Take 6 Tablets by mouth once a week. 24 Tablet 5 04/16/20 24 024 Discontinued documented as of this encounter (statuses as of 04/17/2024) Active Problems Problem Noted Date Diagnosed Date [...] as of this encounter (statuses as of 04/17/2024) Resolved Problems Problem Noted Date Diagnosed Date Resolved Date Carpal tunnel syndrome 06/17/201402/08 Allergic rhinitis 06/17/2014 02/08/2018 Adjustment disorder with depressed mood 12/10/2013 07/20/2017 Eczema 06/22/2012 07/20/2017 Epileptic seizure 12/10/2010 08/16/2018 documented as of this encounter (statuses as of 04/17/2024) Immunizations Name Administration Dates Next Due Pneumococcal Conjugate Vacc, 13 Valent (Prevnar) 06/17/2014 Pneumococcal Conjugate Vacci ne, 20-valent ([id number]) 02/15/2022 Pneumococcal Polysaccharide PPV23 (Pneumovax) 05/19/2016 Seasonal [...] encounter Miscellaneous Notes * Telephone Encounter - Eulalia Lawrence RPh - 04/17/2024 12:33 PM EST Cyclophosphamide RX per 04/16 TE - sent with updated diagnosis code Dr. Dyson/Genoveva/Hitesh/HAYLEY: LIZA Time Spent on Encounter: 6 - 10 minutes Encounter Group: Hematology Encounter Interventions Item Category: Oral Chemotherapy Cyclophosphamide Problem/Rationale: Adherence - Medication product not available Pharmacist Intervention(s): Contacted specialty pharmacy and Medication prescribed Magnitude of Intervention: Modification of medication for asymtomatic patients (Level 2) documented in this encounter Plan of Treatment Upcoming Encounters Date Type Department Care Team (Late st Contact Info) Description 04/22/2024 9:15 AM EST Pharmacy Pharmacy Hematology Oncology [facility] [address] [place] [address] [facility] [place] [facility] Hem/Onc [address] [place] [address] 04/22/2024 5:40 PM EST Office Visit [address] [phone] Rahul Tucker MD [address] [place] [address] [place] [address] 04/25/2024 10:45 AM EST Office Visit Hematology/Oncology [facility] [address] [facility] [place] [address] Brian Dyson MD [address] [facility] [place] [address] 05/20/2024 6:20 PM EST Office Visit Family Medicine [address] [phone] Rahul Tucker MD [address] [place] [address] [place] [address] 07/17/2024 11:15 AM EDT Procedure Only Urology, [facility] 132 [facility] [place] [address] Duglas Tadeo MD [address] [place] [id number] Scheduled Procedures Name Priority Associated Diagnoses Date/Ti me ESOPHAGOGASTRODUODENOSCOPY ( EGD), FLEXIBLE, TRANSORAL, DIAGNOSTIC Recall Cirrhosis (HCC) Esophageal varices (HCC) Health Maintenance Due Date Last Done Comments DISCUSS TOBACCO CESSATION (REFER TO SMARTSET #5599) 1950 COVID-19 Vaccine (#1) 1955 Hepatitis B [...] Advance Directives occurred with: Patient Care Teams Business Unit Manager Relationship Specialty Start Date End Date Rahul Tucker MD [address] [place] [address] [place] [phone] PCP - General Family Medicine 08/03/18 documented as of this encounter
--- OUTSIDE RECORDS SUMMARY | 2024-05-05 16:46 | External Medical Summary ---
Author Name Unknown Address Unknown Organization K01:[facility]ATORY [facility] [place] - [address] [facility] [address] Laboratory Report Ordering Provider Test Date Status YOLA CHURCH 04/22/2024 14:18:11 Final Observation Date Value Abnormality Reference (Units ) Status Color of Urine by Auto 04/22/2024 14:18:11 Yellow Colorless, Light Yellow, Yellow, Dark Yellow Final Clarity, Urine 04/22/2024 14:18:11 Clear Clear Final Glucose [Mass/volume] in Urine by Automated test strip 04/22/2024 14:18:11 150 Abnormal Negative (mg/dL) Final Bilirubin.total [Presence] in Urine by Automated test strip 04/22/2024 14:18:11 Negative Negative Final Ketones [Mass/volume] in Urine by Automated test strip 04/22/2024 14:18:11 Negative Negative (mg/dL) Final Specific gravity, Urine 04/22/2024 14:18:11 1.017 1.003-1.030 Final Hemoglobin [Presence] in Urine by Automated test strip 04/22/2024 14:18:11 Small Abnormal Negative Final pH, Urine 04/22/2024 14:18:11 8.0 Above high normal 5.0-7.5 (Units) Final Protein [Mass/volume] in Urine by Automated test strip 04/22/2024 14:18:11 >300 Abnormal Negative (mg/dL) Final Urobilinogen [Mass/volume] in Urine by Automated test strip 04/22/2024 14:18:11 Normal Normal (mg/dL) Final Nitrite [Presence] in Urine by Automated test strip 04/22/2024 14:18:11 Negative Negative Final Leukocyte esterase [Presence] in Urine by Automated test strip 04/22/2024 14:18:11 Negative Negative Final RBC, Urine 04/22/2024 14:18:11 6-9 Abnormal 0-2 (/HPF) Final WBC, Urine 04/22/2024 14:18:11 10-19 Abnormal 0-2 (/HPF) Final Bacteria [#/area] in Urine sediment by Microscopy high power field 04/22/2024 14:18:11 0-25 0-25 (/HPF) Final Hyaline casts, Urine 04/22/2024 14:18:11 5-9 Abnormal None (/LPF) Final Performing Location LABORATORY [facility] [place] - [facility] [address] [facility] [address]
--- OUTSIDE RECORDS SUMMARY | 2024-05-05 16:46 | External Medical Summary ---
Author Name Unknown Address Unknown Organization K09:[facility]ATORY [place] [address] Laboratory Report Ordering Provider Test Date Status MED EASLEY 04/15/2024 06:19:15 Final Observation Date Value Abnormality Reference (Units ) Status Phosphate 04/15/2024 06:19:15 6.1 Above high normal 2. 5-4.8 (mg/dL) Final Performing Location [facility] [place] [address]
--- OUTSIDE RECORDS SUMMARY | 2024-05-05 16:46 | External Medical Summary | Summary of Care ---
Author Name Unknown Organization [facility] Address [address] [place] [address] Phone [phone] Care Team Providers Care Medical Administrator Name Role Phone Rahul Tucker MD Primary Care Provide r Reason for Referral * Evaluate & Treat - Unlimited Visits (Within 24 hrs (call dept; emergent)) - Authorized Specialty Diagnoses / Procedures Referred By David t Referred To Contact ANTI-[facility]AG CLINIC / Pharmacy Diagnoses GARY (acute kidney injury) (HCC) Darby Mayorga MD [address] [place] [address] Phone: tel: fax: Referral ID Status Reason Start Date Expiration Date Visits Requested Visits Authorized [id number] Authorized Specialty Services Required 4 10/16/2024 99 99 Question Answer Referral Priority Within 24 hrs (call dept; emergent) Where should this appointment be scheduled? [facility] Comments Anticoagulation referral for management of: Warfarin Indication and INR goal for Warfarin Management: VTE: Treatment of Deep Vein Thrombosis, INR Goal: 2.0 - 3.0 Relevant History: Hypercoagulable state: presumed Enoxaparin bridging required? No Minimum frequency patient should be seen in person for medication management: as appropriate per clinical condition and patient status By my signature, I understand that my patient Dre Vera will have his medication therapy managed by the [facility] Medication Therapy [facility] ([facility]) per established policies, procedures, and protocols. I also certify that this referral may serve as an initiation of service for the management of drug therapy in the above noted patient. [facility] providers will be responsible for scheduling patient visits, obtaining appropriate laboratory studies, and adjusting medication management therapy per patient's need, in addition to those roles spelled out in the clinic policy, procedures, and drug management protocols. I understand that the service provided by the [facility] Clinic is voluntary and have informed patient that they can refuse the service at their discretion. I am aware that the [facility] Clinic will provide me with a copy of the patient encounter via my [employer]. I authorize the [facility] Clinic to carry out these activities on my behalf. I consider this program to be a necessary part of the patient's medical care. Siobhan Allen RN Reason for Visit * Reason Onset Date Comments Order Request 04/19/2024 Encounter Details Date Type Department Care Team (Late st Contact Info) Description 04/19/2024 [address]phone [address] [place] [address] Darby Mayorga MD [address] [place] [address] [place] [address] Order Request Allergies Active Allergy Reactions Criticality [...] Additional Information Patient not taking.Reported on 04/18/2024 Prochlorperazine Maleate 10 MG Oral Tablet (Compazine)Indic [...] once a week. 24 Capsule 5 4 Active documented as of this [...] (Prevnar) 06/17/2014 Pneumococcal Conjugate Vacci ne, 20-valent ([id number]) 02/15/2022 Pneumococcal Polysaccharide PPV23 (Pneumovax) 05/19/2016 Seasonal [...] Date Author No 03/17/2024 6:46 PM EST [place], Genoveva, RN documented in this encounter Plan of Treatment Upcoming Encounters Date Type Department Care Team (Late st Contact Info) Description 04/19/2024 5:10 PM EST Anticoagulation Pharmacy, [address] [place] [address] [place] [address] 04/22/2024 9:15 AM EST Pharmacy Pharmacy Hematology Oncology [facility] [address] [place] [address] [facility] Hem/Onc [address] [place] [address] 04/22/2024 5:40 PM EST Office Visit Family Medicine [address] [place] [phone] Rahul Tucker MD [address] [place] [address] [place] [address] 04/25/2024 10:45 AM EST Office Visit Hematology/Oncology [facility] 200 [facility] [place] [phone] Brian Dyson MD [address] [facility] [place] [address] 05/20/2024 6:20 PM EST Office Visit Family Medicine [address] [place] [phone] Rahul Tucker MD [address] [place] [address] [place] [address] 07/17/2024 11:15 AM EDT Procedure Only Urology, [facility] 132 [facility] [place] [address] Duglas Tadeo MD [address] [place] [address] Scheduled Procedures Name Priority Associated Diagnoses Date/Ti me ESOPHAGOGASTRODUODENOSCOPY ( EGD), FLEXIBLE, TRANSORAL, DIAGNOSTIC Recall Cirrhosis (HCC) Esophageal varices (HCC) Scheduled Referrals Name Type Priority Associated Diagnoses Orde r Schedule ANTI-COAGULATION REFERRAL OP Referral Within 24 hrs (call dept; emergent) GARY (acute kidney injury) (HCC) Ordered: 04/19/2024 Health Maintenance Due Date Last Done Comments [...] injury) (HCC)- Primary Acute kidney failure, unspecified documented in this encounter Advance Directives * Full Code (Latest Code Status on File) Date Activated Date Inactivated Comments 03/17/2024 7:37 PM 03/29/2024 7:58 PM This order reflects the patients wishes and were consensually agreed upon. Question Answer Comments Discussion of Advance Directives occurred with: Patient Care Teams Medical Administrator Relationship Specialty Start Date End Date Rahul Tucker MD [address] [place] [address] [place] [address] PCP - General Family Medicine 08/03/18 documented as of this encounter
--- OUTSIDE RECORDS SUMMARY | 2024-05-05 16:46 | External Medical Summary | Summary of Care ---
Author Name Unknown Organization [facility] Address [address] [place] [address] Phone [phone] Care Team Providers Care Commercial Real Estate Paralegal Name Role Phone Rahul Tucker MD Primary Care Provide r Encounter Details Date Type Department Care Team (Late st Contact Info) Description 04/15/2024 Orders Only Hematology/Oncology [facility] [place] 200 [facility] [place] [phone] Brian Dyson MD 200 [facility] [place] [address] Amyloidosis, unspecified type (HCC)*; Light chain (AL) amyloidosis (HCC) Allergies Active [...] and 30 mL before bedtime. 1920 mL 4 03/24/20 25 Active Additional Information Patient [...] 1 4 Active cycloPHOSphamide 50 MG Oral Capsule (Cytoxan)Indicat ions:Amyloidosis , unspecified type (HCC) Take 6 Capsules by mouth once a week. 24 Capsule [...] (Prevnar) 06/17/2014 Pneumococcal Conjugate Vacci ne, 20-valent ([id number]) 02/15/2022 Pneumococcal Polysaccharide PPV23 (Pneumovax) 05/19/2016 Seasonal [...] 9:15 AM EST Pharmacy Pharmacy Hematology Oncology [facility] [address] [place] [address] [facility] [place] Hem/Onc [address] [place] [address] 04/22/2024 5:40 PM EST Office Visit Family Medicine [address] [phone] Rahul Tucker MD [address] [place] [address] [place] [address] 04/25/2024 10:45 AM EST Office Visit Hematology/Oncology [facility] 200 [facility] [place] [phone] Brian Dyson MD 200 [facility] [place] [address] 05/20/2024 6:20 PM EST Office Visit Family [address] [phone] Rahul Tucker MD [address] [place] [address] [place] [address] 07/17/2024 11:15 AM EDT Procedure Only Urology, [facility] 132 [facility] [place] [address] Duglas Tadeo MD 27 [place] [phone] Scheduled Procedures Name Priority Associated Diagnoses Date/Ti [...] Procedure Name Priority Date/Time Associated Diagnosis Comments TYPE AND SCREEN Routine 04/12/2024 Light chain (AL) amyloidosis (HCC) documented in this encounter Results * TYPE AND SCREEN (04/12/2024) Blood Venous blood specimen / Unknown 04/12/2024 Brian Dyson MD LAB BLOOD BANK TEST ORDERABLES Final Result documented in this encounter Visit Diagnoses Diagnosis Amyloidosis, unspecified type (HCC)- Primary Light chain (AL) amyloidosis (HCC) documented in this encounter Advance Directives * Full Code (Latest Code Status on File) Date Activated Date Inactivated Comments 03/17/2024 7:37 PM 03/29/2024 7:58 PM This order reflects the patients wishes and were consensually agreed upon. Question Answer Comments Discussion of Advance Directives occurred with: Patient Care Teams Commercial Real Estate Paralegal Relationship Specialty Start Date End Date Rahul Tucker MD [address] [place] [address] [place] [address] PCP - General Family Medicine 08/03/18 documented as of this encounter
--- OUTSIDE RECORDS SUMMARY | 2024-05-05 16:47 | External Medical Summary ---
Author Name Unknown Address Unknown Organization K0G:LABORATORY [place] [address] - [address] [place] [address] Laboratory Report Ordering Provider Test Date Status BERTHA DELUCA 04/13/2024 07:05:38 Final Observation Date Value Abnormality Reference (Units ) Status BUN 04/13/2024 07:05:38 30 Above high normal 6-20 (mg/dL) Final Creatinine 04/13/2024 07:05:38 3.3 Above high normal 0.6-1.2 (mg/dL) Final Glomerular filtration rate/1.73 sq M.predicted [Volume Rate/Area] in Serum, Plasma or Blood by Creatinine-based formula (CKD-EPI) 04/13/2024 07:05:38 19 Below low normal >=60 (mL/min) Final eGFR is calculated based on the CKD-EPI 2020 equation. Sodium 04/13/2024 07:05:38 135 135-146 (m mol/L) Final Potassium 04/13/2024 07:05:38 4.0 3.5-5.1 (m mol/L) Final Cl 04/13/2024 07:05:38 98 98-107 (mm ol/L) Final CO2 04/13/2024 07:05:38 30 22-32 (mmo l/L) Final Anion gap 04/13/2024 07:05:38 7 7-15 (mmol /L) Final Glucose 04/13/2024 07:05:38 77 70-120 (mg /dL) Final Calcium 04/13/2024 07:05:38 7.3 Below low normal 8.4 -10.2 (mg/dL) Final Performing Location LABORATORY [place] [address] 0 - [address] [place] [address]
--- OUTSIDE RECORDS SUMMARY | 2024-05-05 16:47 | External Medical Summary | Summary of Care ---
Author Name Unknown Organization [facility] Address [address] [place] [address] Phone [phone] Care Team Providers Care Braille Translator Name Role Phone Rahul Tucker MD Primary Care Provide r Reason for Visit * Reason Onset Date Comments Hospital Follow-Up 04/12/2024 Hem/ onc disc harge Encounter Details Date Type Department Care Team (Late st Contact Info) Description 04/12/2024 Telephone Hematology/Oncology Treatment, [place] [address] [address] Brian Dyson MD 200 [place] [address] Hospital Follow-Up (Hem/ onc discharge) Allergies Active Allergy Reactions Criticality Noted Date Comments Azithromycin Hives 12/10/2010 documented as of this encounter (statuses as of 04/12/2024) Medications Finasteride 5 MG Oral Tablet (Proscar) [...] as of this encounter (statuses as of 04/12/2024) Active Problems Problem Noted Date Diagnosed Date [...] as of this encounter (statuses as of 04/12/2024) Resolved Problems Problem Noted Date Diagnosed Date Resolved Date Carpal tunnel syndrome 06/17/201402/08 Allergic rhinitis 06/17/2014 02/08/2018 Adjustment disorder with depressed mood 12/10/2013 07/20/2017 Eczema 06/22/2012 07/20/2017 Epileptic seizure 12/10/2010 08/16/2018 documented as of this encounter (statuses as of 04/12/2024) Immunizations Name Administration Dates Next Due Pneumococcal Conjugate Vacc, 13 Valent (Prevnar) 06/17/2014 Pneumococcal Conjugate Vacci ne, 20-valent ([id number]) 02/15/2022 Pneumococcal Polysaccharide PPV23 (Pneumovax) 05/19/2016 Seasonal [...] Assessment Author No 03/17/2024 6:46 PM Genoveva Vidla RN * Do you have difficulty dressing [...] Encounter - Genoveva Diez RN - 04/12/2024 10:14 AM EST HEMATOLOGY/ONCOLOGY HOSPITAL DISCHARGE FOLLOW-UP Call not placed to patient to follow up after hospital discharge- he already came to see Dr Dyson 04/10/24, spoke to patients several times after discharge Dates patient was admitted at [facility] [place]: 03/17/24 to 03/29/24 with a primary diagnosis of ESRD, amyloidosis. Currently has no complaints. All current medications reviewed with patient. Patient verbalizes understanding of regimen. Chemo education today. Post discharge hospital visit is scheduled and patient is aware, had appt 04/10/24.. documented in this encounter Plan of Treatment Upcoming Encounters Date Type Department Care Team (Latest Contact Info) Description 04/12/2024 1:00 PM EST Pharmacy Pharmacy Hematology Oncology [address] [address] [facility] [place] Hem/Onc [address] [place] [address] Light chain (AL) amyloidosis (HCC)* 04/15/2024 1:15 PM EST Pharmacy Pharmacy Hematology Oncology [address] [address] [facility] [place] Hem/Onc [address] [place] [address] 04/17/2024 1:30 PM EST Pharmacy Pharmacy Hematology Oncology [address] [address] [facility] [place] Hem/Onc [address] [place] [phone] 04/25/2024 10:45 AM EST Office Visit Hematology/Oncology [facility] [address] [place] [phone] Brian Dyson MD [address] [facility] [place] [address] 05/20/2024 6:20 PM EST Office Visit Family Medicine [address] [phone] Rahul Tucker MD [address] [place] [address] [place] [address] 07/17/2024 11:15 AM EDT Procedure Only Urology, [facility] [address] [place] [address] Duglas Tadeo MD [address] [facility] [place] [phone] Scheduled Procedures Name Priority Associated Diagnoses Date/Ti me ESOPHAGOGASTRODUODENOSCOPY ( EGD), FLEXIBLE, TRANSORAL, DIAGNOSTIC Recall Cirrhosis (HCC) Esophageal varices (HCC) Health Maintenance Due Date Last Done Comments DISCUSS TOBACCO CESSATION (REFER TO SMARTSET #2553) 1950 Hepatitis B Vaccine (1 of 3 [...] Advance Directives occurred with: Patient Care Teams Braille Translator Relationship Specialty Start Date End Date Rahul Tucker MD [address] [place] [address] [place] [address] PCP - General Family Medicine 08/03/18 documented as of this encounter
--- OUTSIDE RECORDS SUMMARY | 2024-05-05 16:47 | External Medical Summary ---
Author Name Unknown Address Unknown Organization [id number]:[facility] [address] [place] [address] Laboratory Report Ordering Provider Test Date Status BERTHA DELUCA 04/13/2024 07:05:38 Final Observation Date Value Abnormality Reference (Units ) Status WBC, Total 04/13/2024 07:05:38 15.11 Above high normal 4 .00-10.80 (K/uL) Final RBC 04/13/2024 07:05:38 2.99 4.50-5.25 (M/uL) Final Hemoglobin 04/13/2024 07:05:38 9.1 Below low normal 14 .0-16.8 (g/dL) Final HCT 04/13/2024 07:05:38 28.0 Below low normal 40. 0-48.4 (%) Final MCV 04/13/2024 07:05:38 93.6 82.0-99.5 (fL) Final MCH 04/13/2024 07:05:38 30.4 27.0-34.0 (pg) Final MCHC 04/13/2024 07:05:38 32.5 32.0-36.0 (g/dL) Final RDW 04/13/2024 07:05:38 22.4 11.5-15.5 (%) Final Platelets 04/13/2024 07:05:38 594 Above high normal 14 0-400 (K/uL) Final MPV 04/13/2024 07:05:38 9.7 6.6-11.1 ( fL) Final Performing Location [facility] [address] [place] [address]
--- OUTSIDE RECORDS SUMMARY | 2024-05-05 16:47 | External Medical Summary | Summary of Care ---
Author Name Unknown Organization [facility] Address [address] [place] [address] Phone [phone] Care Team Providers Care Faith Healer Name Role Phone Rahul Tucker MD Primary Care Provide r Reason for Visit * Reason Comments Follow Up Review PET results Encounter Details Date Type Department Care Team (Late st Contact Info) Description 04/10/2024 9:30 AM EST Office Visit Hematology/Oncology [facility] 200 [facility] [phone] Brian Dyson MD 200 [place] [address] Light chain (AL) amyloidosis (HCC)* Allergies Active [...] (Prevnar) 06/17/2014 Pneumococcal Conjugate Vacci ne, 20-valent ([id number]) 02/15/2022 Pneumococcal Polysaccharide PPV23 (Pneumovax) 05/19/2016 Seasonal [...] 9:30 AM EST [facility] 200 [facility] [place] [address] BETY VERA MR # [id number] :1950 73 years old male, Date of [...] was passing out, he was seen at [facility] ER, CT head was unremarkable, CT chest with PE protocol on 06/14/2023: Unremarkable, normal cardiac size noted, no pericardial effusion. No PE. Subcentimeter mediastinal lymph nodes noted. Once again he was admitted in October 2023 for increasing leg edema, there was no evidence of DVT on Doppler evaluation CT scan of the abdomen pelvis with contrast on 11/19/2023 at [facility] showed findings suggestive of nodular counter of the liver consistent with cirrhosis, no liver or spleen masses. Blood workup showed normal WBC, normal hemoglobin level, Platelet count is slightly higher side around 450 to 123844 range. Urine showed significant protein. (4+). 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 Currently he is in the alf, he came to clinic in the wheelchair, [...] TUNNEL SURGERY 2011 right 2011 COLONOSCOPY 06/03/2015 [place]--polyps--benign DENTAL SURGERY PROCEDURE NEC [place] teeth removed EGD, FLEXIBLE, DIAGNOSTIC 12/11/2023 mild portal hypertensive gastropathy/recall 2 years/ESOPHAGOGASTRODUODENOSCOPY (EGD), FLEXIBLE, TRANSORAL, DIAGNOSTIC performed by Dolores Edmonds MD at ENDOSCOPY [facility] IR BIOPSY 03/21/2024 IR VENOUS ACCESS NON-MEDIPORT 03/21/2024 PATIENT EDU, LUMBAR LAMINECTOMY [address] [facility] OR ARTHROPLASTY GLENOHUMERAL JOINT TOTAL SHOULDER Right 11/2021 [...] Stability Do you currently live in a fci or have no steady place to sleep [...] Reviewed blood workup done on 04/19/2024: -WBC 43513, Hemoglobin and hematocrit - 9.1/27.9, [place] [address] -MCV 94 -BUN/Creat: 27/2.8, AST 104, ALT [...] worseningrenal function test, he was transferred at [facility], had kidney biopsy which confirmed the diagnosis of AL amyloidosis, reviewed the bone marrow findings with him and his . He had left leg [id number]-[id number] amputation for arterial clot. I reviewed with [...] st Contact Info) Description 04/15/2024 1:15 PM EST Pharmacy Pharmacy Hematology Oncology [address] [address] [facility], [facility] Hem/Onc [address] [place] [address] 04/17/2024 1:30 PM EST Pharmacy Pharmacy Hematology Oncology [address] [address] [facility], [facility] Hem/Onc [address] [place] [address] 04/25/2024 10:45 AM EST Office Visit Hematology/Oncology [facility] [address] [place] [phone] Brian Dyson MD [address] [place] [address] 05/20/2024 6:20 PM EST Office Visit Family Medicine [address] [place] [phone] Rahul Tucker MD [address] [place] [address] [place] [address] 07/17/2024 11:15 AM EDT Procedure Only Urology, [facility] 132 [facility] [place] [address] Duglas Tadeo MD [address] [place] [address] Scheduled Procedures Name Priority Associated Diagnoses Date/Ti [...] Advance Directives occurred with: Patient Care Teams Faith Healer Relationship Specialty Start Date End Date Rahul Tucker MD [address] [place] [address] [place] [address] PCP - General Family Medicine 08/03/18 documented as of this encounter
--- OUTSIDE RECORDS SUMMARY | 2024-05-05 16:47 | External Medical Summary | Summary of Care ---
Author Name Unknown Organization [facility] Address [address] [place] [facility] [place] [address] Phone [phone] Care Team Providers Care Truck Driver Heavy Name Role Phone Rahul Tucker MD Primary Care Provide r Reason for Visit * Reason Comments Education [facility] Encounter Details Date Type Department Care Team (Late st Contact Info) Description 04/12/2024 10:00 AM EST Pt Ed by Nurse Hematology/Oncology [facility] [place] [address] [place] [phone] Nurse Shima Hem Onc [facility] 200 [facility] [place] [address] Arrived Allergies Active Allergy Reactions Criticality Noted Date [...] (Prevnar) 06/17/2014 Pneumococcal Conjugate Vacci ne, 20-valent ([id number]) 02/15/2022 Pneumococcal Polysaccharide PPV23 (Pneumovax) 05/19/2016 Seasonal [...] documented in this encounter Progress Notes * Hitesh Worthy RN - 04/12/2024 11:02 AM EST Education completed. Pt going to [facility] to have T&S done. Called [facility] and spoke with Mirian that a new Darzalex patient is coming to have T&S done, she is aware and will notify the outpatient lab to draw the correct labs. documented in this encounter Plan of Treatment Upcoming Encounters Date Type Department Care Team (Latest Contact Info) Description 04/12/2024 1:00 PM EST Pharmacy Pharmacy Hematology Oncology [address] [address] [facility], [facility] Hem/Onc [address] [place] [address] Light chain (AL) amyloidosis (HCC)* 04/15/2024 1:15 PM EST Pharmacy Pharmacy Hematology Oncology [address] [address] [facility], [facility] Hem/Onc [address] [place] [address] 04/17/2024 1:30 PM EST Pharmacy Pharmacy Hematology Oncology [address] [address] [facility], [facility] Hem/Onc [address] [place] [address] 04/25/2024 10:45 AM EST Office Visit Hematology/Oncology [facility]rell [address] [place] [address] [place] [phone] Brian Dyson MD [address] [place], [place] [address] 05/20/2024 6:20 PM EST Office Visit Family Medicine [address] [place] [phone] Rahul Tucker MD [address] [place] [address] [place] [address] 07/17/2024 11:15 AM EDT Procedure Only Urology, [facility] 132 [facility] [place] [address] Duglas Tadeo MD [address] [place] [address] Scheduled Procedures Name Priority Associated Diagnoses Date/Ti me ESOPHAGOGASTRODUODENOSCOPY ( EGD), FLEXIBLE, TRANSORAL, DIAGNOSTIC Recall Cirrhosis (HCC) Esophageal varices (HCC) Health Maintenance Due Date Last Done Comments DISCUSS TOBACCO CESSATION (REFER TO SMARTSET #3695) 1950 Hepatitis B Vaccine (1 of 3 [...] Advance Directives occurred with: Patient Care Teams Truck Driver Heavy Relationship Specialty Start Date End Date Rahul Tucker MD [address] [place] [address] [place] [address] PCP - General Family Medicine 08/03/18 documented as of this encounter
--- OUTSIDE RECORDS SUMMARY | 2024-05-05 16:47 | External Medical Summary | Summary of Care ---
Author Name Unknown Organization [facility] Address [address] [place] [address] Phone [phone] Care Team Providers Care Curtain Fitter Name Role Phone Rahul Tucker MD Primary Care Provide r Reason for Visit * Reason Onset Date Comments Hospital Follow-Up 04/12/2024 Hem/ onc disc harge Encounter Details Date Type Department Care Team (Late st Contact Info) Description 04/12/2024 Telephone Hematology/Oncology Treatment, [place] [address] [place] [address] Brian Dyson MD 200 [place] [address] Hospital Follow-Up (Hem/ onc discharge) Allergies Active [...] (Prevnar) 06/17/2014 Pneumococcal Conjugate Vacci ne, 20-valent ([id number]) 02/15/2022 Pneumococcal Polysaccharide PPV23 (Pneumovax) 05/19/2016 Seasonal [...] after discharge Dates patient was admitted at [facility]: 03/17/24 to 03/29/24 with a primary diagnosis [...] 1:00 PM EST Pharmacy Pharmacy Hematology Oncology [address] [address] [facility], [facility] Hem/Onc [address] [place] [phone] Light chain (AL) amyloidosis (HCC)* 04/15/2024 1:15 PM EST Pharmacy Pharmacy Hematology Oncology [address] [address] [facility], [facility] Hem/Onc [address] [place] [address] 04/17/2024 1:30 PM EST Pharmacy Pharmacy Hematology Oncology [address] [address] [facility], [facility] Hem/Onc [address] [place] [address] 04/25/2024 10:45 AM EST Office Visit Hematology/Oncology [facility] 200 [facility] [place] [phone] Brian Dyson MD 200 [facility] [place] [address] 05/20/2024 6:20 PM EST Office Visit Family Medicine [address] [phone] Rahul Tucker MD [address] [place] [address] [place] [address] 07/17/2024 11:15 AM EDT Procedure Only Urology, [facility] [address] [place] [address] Duglas Tadeo MD 27 [facility] [place] [phone] Scheduled Procedures Name Priority Associated Diagnoses Date/Ti me ESOPHAGOGASTRODUODENOSCOPY ( EGD), FLEXIBLE, TRANSORAL, DIAGNOSTIC Recall Cirrhosis (HCC) Esophageal varices (HCC) Health Maintenance Due Date Last Done Comments DISCUSS TOBACCO CESSATION (REFER TO SMARTSET #0565) 1950 Hepatitis B Vaccine (1 of 3 [...] Advance Directives occurred with: Patient Care Teams Curtain Fitter Relationship Specialty Start Date End Date Rahul Tucker MD [address] [place] [address] [place] [address] PCP - General Family Medicine 08/03/18 documented as of this encounter
--- OUTSIDE RECORDS SUMMARY | 2024-05-05 16:47 | External Medical Summary | Summary of Care ---
Author Name Unknown Organization [facility] Address [address] [place] [address] Phone [phone] Care Team Providers Care Green Material Value Added Assessor Name Role Phone Rahul Tucker MD Primary Care Provide r Reason for Visit * Reason Comments Follow Up Review PET results Encounter Details Date Type Department Care Team (Late st Contact Info) Description 04/10/2024 9:30 AM EST Office Visit Hematology/Oncology [facility] 200 [facility] [place] [place] [phone] Brian Dyson MD 200 [place] [address] Light chain (AL) amyloidosis (HCC)* Allergies Active [...] (Prevnar) 06/17/2014 Pneumococcal Conjugate Vacci ne, 20-valent ([id number]) 02/15/2022 Pneumococcal Polysaccharide PPV23 (Pneumovax) 05/19/2016 Seasonal [...] 9:30 AM EST [facility] 200 [facility] [place] [address] BETY VERA MR # [id number] :1950 73 years old male, Date of [...] was passing out, he was seen at [facility] ER, CT head was unremarkable, CT chest with PE protocol on 06/14/2023: Unremarkable, normal cardiac size noted, no pericardial effusion. No PE. Subcentimeter mediastinal lymph nodes noted. Once again he was admitted in October 2023 for increasing leg edema, there was no evidence of DVT on Doppler evaluation CT scan of the abdomen pelvis with contrast on 11/19/2023 at [facility] showed findings suggestive of nodular counter of the liver consistent with cirrhosis, no liver or spleen masses. Blood workup showed normal WBC, normal hemoglobin level, Platelet count is slightly higher side around 450 to 990269 range. Urine showed significant protein. (4+). 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 Currently he is in the snf, he came to clinic in the wheelchair, [...] TUNNEL SURGERY 2011 right 2011 COLONOSCOPY 06/03/2015 [place]--polyps--benign DENTAL SURGERY PROCEDURE NEC [place] teeth removed EGD, FLEXIBLE, DIAGNOSTIC 12/11/2023 mild portal hypertensive gastropathy/recall 2 years/ESOPHAGOGASTRODUODENOSCOPY (EGD), FLEXIBLE, TRANSORAL, DIAGNOSTIC performed by Dolores Edmonds MD at ENDOSCOPY [facility] IR BIOPSY 03/21/2024 IR VENOUS ACCESS NON-MEDIPORT 03/21/2024 PATIENT EDU, LUMBAR LAMINECTOMY 1986 Back surgery at [facility] [place] ARTHROPLASTY GLENOHUMERAL JOINT TOTAL SHOULDER Right 11/2021 [...] Stability Do you currently live in a nursing home or have no steady place to sleep [...] Reviewed blood workup done on 04/19/2024: -WBC 31475, Hemoglobin and hematocrit - 9.1/27.9, Platelet count of 393207 -MCV 94 -BUN/Creat: 27/2.8, AST 104, ALT [...] worseningrenal function test, he was transferred at [facility], had kidney biopsy which confirmed the diagnosis of AL amyloidosis, reviewed the bone marrow findings with him and his . He had left leg [id number] amputation for arterial clot. I reviewed with [...] 1:15 PM EST Pharmacy Pharmacy Hematology Oncology [address] [address] [facility], [facility] Hem/Onc [address] [place] [address] 04/17/2024 1:30 PM EST Pharmacy Pharmacy Hematology Oncology [address] [address] [facility], [facility] Hem/Onc [address] [place] [address] 04/25/2024 10:45 AM EST Office Visit Hematology/Oncology [facility] [address] [place] [phone] Brian Dyson MD [address] [place] [address] 05/20/2024 6:20 PM EST Office Visit Family Medicine [address] [place] [phone] Rahul Tucker MD [address] [place] [address] [place] [address] 07/17/2024 11:15 AM EDT Procedure Only Urology, [facility] 132 [facility] [place] [address] Duglas Tadeo MD [address] [place] [address] Scheduled Procedures Name Priority Associated Diagnoses Date/Ti [...] Advance Directives occurred with: Patient Care Teams Green Material Value Added Assessor Relationship Specialty Start Date End Date Rahul Tucker MD [address] [place] [address] [place] [address] PCP - General Family Medicine 08/03/18 documented as of this encounter
--- NOTE | 2024-05-05 17:10 | Emergency Department Note ---
Impression & Plan AMS (altered mental status), CKD (chronic kidney disease), Anemia, Elevated troponin, Chronic indwelling Sousa catheter ED Provider Note ED Provider Note NAME: BETY CUI AGE:74 SEX: Male : 1950 ARRIVES VIA: EMS INFORMANT: EMS, family ED PROVIDER(s): Vane Marquez DO CHIEF COMPLAINT: Confusion, shakiness, weakness HPI: This is a 74-year-old male presents emergency department via EMS due to family concern for confusion, increasing weakness and shakiness. Family states he started chemotherapy on for recent diagnosis of multiple myeloma. Family states he seemed well after chemo although was still having pain in his stump from his recent left AKA. She did give him oxycodone on . Patient went to dialysis as regularly scheduled on Monday. She states he did give him the new additional medications for his multiple myeloma on Monday as well. She states that after chemo he seemed more tired compared to normal. She states yesterday he was intermittently confused and appeared more tired and weak. She also noticed some slight shaking and he had a decrease in his appetite. She states today he seemed worse so she contacted Dr. Dyson of oncology and they feel is likely related to the new medications recently started. She had not noticed any fevers. Denies any other overt sick contacts. Patient does still make urine, she has been emptying his catheter daily. PAST MEDICAL HISTORY:See Below PAST SURGICAL HISTORY:See Below FAMILY HISTORY:See Below SOCIAL HISTORY:See Below HOME MEDICATIONS:See Below ALLERGIES:See Below VITALS:See Below PHYSICAL EXAMINATION: GENERAL: alert, well nourished, no distress, non-toxic EYE EXAM: normal conjunctiva, PERRL and EOM's grossly intact OROPHARYNX: no exudate, no erythema, lips, buccal mucosa, and tongue normal and mucous membranes are moist NECK: supple, no nuchal rigidity, no adenopathy, non-tender LUNGS: Clear to auscultation. Normal chest wall mechanics, no w/r/r HEART: no murmurs, S1 normal and S2 normal CHEST WALL: catheter noted right ant/sup chest wall ABDOMEN: abdomen soft, non-tender, normo-active bowel sounds, no masses, no rebound or guarding. BACK: Back is symmetrical on inspection and there is no deformity, no midline tenderness, no CVA tenderness. SKIN: no rashes, petechiae, orbruising UPPER EXTREMITIES: upper extremities are grossly normal. FROM, nml pulses b/l. LOWER EXTREMITIES: No pitting edema. FROM, nml RLE pulses b/l, left AKA, stump well-healed NEURO EXAM: Confused, cranial nerves II-XII grossly intact, normal speech, no facial droop,moving arms and legs spontaneously, difficulty cooperating for neuro testing, tremulous Vital Signs: reviewed and remarkable Differential Diagnosis: CVA/TIA, ICH, GARY, PNA, UTI, medication ADR, bacteremia/sepsis, occult trauma, hypoxia, hypercapnia, electrolyte abnormality, as well as others were considered MEDICAL DECISION MAKING: This is a 74 yo male brought in due to increasing confusion and weakness per family. He was unable to provide history. He was afebrile on arrival and vital signs stable although he was unwell appearing. Labs and cultures drawn and sent, IV established, EKG and cxr performed at bedside and interpreted by me and he was monitored on telemetry. He was started on gentle IVF due to hx of CKD on HD as family reported he had decreased oral intake in the last 2 days. Patient noted have elevated wbc and vanco/cefepime added due to concern for occult infection as patient on chemo. After obtaining records from his oncologist, it was noted patient had similar WBC count 3 days ago and medication list included dexamethasone. He was sent for CT head a precaution. His exam did not reveal any lateralizing findings to further suggest stroke and I suspect his confusion is more likely from medication or infection. Nasal swab for respiratory panel added. Ammonia added due to hx of cirrhosis and was normal. VBG reassuring. CT head reassuring. Urine sent from bag for culture. Patient is anticoagulated and INR therapeutic. Case discussed with the hospitalist team for additional evaluation and mgmt. Consultation(s): 1901: Discussed with Dr. Gomez, [facility] hospitalist team, for additional evaluation and mgmt. ER Treatment Provided: See below Diagnostics Interpreted By Me: -ECG: Normal sinus at 94, leftward axis, normal intervals, nonspecific ST/T wave changes, baseline aberrancy and artifact noted -Cardiac Monitoring: An order was placed for continuous cardiac monitoring. The monitor shows a rate of 82 with normal sinus rhythm. -Laboratory studies: As stated above and show below. -Imaging studies: X-ray Chest: A single view study of the chest was reviewed and was negative for cardiomegaly, focal infiltrate, effusion, pulmonary edema, or wide mediastinum. Catheter present. Triage Nursing Note Reviewed Prior/Outside Records Reviewed - reviewed outpatient note from Dr. Dyson from . Past Med/Surg History Problem List (Updated 05/06/24 @ 21:54 by Vane Marquez, DO) Chronic indwelling Sousa catheter (Acute) Elevated troponin (Acute) Anemia (Acute) CKD (chronic kidney disease) (Acute) AMS (altered mental status) (Acute) Cirrhosis Myocardial injury Acute metabolic encephalopathy Sepsis Multiple myeloma without remission Immunocompromised AL amyloidosis ESRD (end stage renal disease) on dialysis Buerger disease Amputation above knee Left leg pain (Acute) Hyperlipidemia Hypertension hx-no current meds; "has low blood pressure now" Medical History AMS (altered mental status) Plasma cell neoplasm Occlusion of artery of lower extremity Ischemic leg Abdominal ascites History of COVID-19 03/2023, not hosp; still has low blood pressure now w/orthostatice hypotension PVCs (premature ventricular contractions) PAC (premature atrial contraction) Fall Rectal bleeding Rotator cuff arthropathy of right shoulder Perforation of tympanic membrane of left ear due to otitis media Degenerative disc disease GERD (gastroesophageal reflux disease) no current meds Monoclonal gammopathy work up underway March 2024 Acute on chronic renal insufficiency Hypoalbuminemia Orthostatic hypotension Syncope Sensorineural hearing loss (SNHL) of left ear with restricted hearing of right ear Seizure Grand mal (most recent 1978) Migraine History of palpitations BPH (benign prostatic hyperplasia) Bulging disc Osteoarthritis Glaucoma Restless leg syndrome Pulmonary embolism 1985 post-op (back surgery) Surgical History History of reverse total replacement of right shoulder joint right History of sinus surgery Endoscopic sinus surgery (08/09/18): L[place]#5[place] [facility] No issues noted per post-op anesthesia progress note. H/O eye surgery Detached retina repairs-bilateral H/O sinus surgery History of repair of rotator cuff R/L History of carpal tunnel release R/L History of discectomy Lumbar History of colonoscopy Dr. Richards with polypectomy History of tooth extraction History of cataract surgery R/L Family History Father Family hx of colon cancer Cancer Colorectal cancer Heart disease Grandfather (Maternal) Family hx of colon cancer Grandfather Colorectal cancer Social History Smoking Status: Unknown if ever smoked Second Hand Exposure: No; Do You Dip or Chew Tobacco: No; Hx Alcohol Use: No Hx Substance Use: No Preferred Language: [place] Communication Ability: Effective Business Management Analyst Required: No Beliefs That Will Affect Care: None marital status: Current Living Situation: Spouse Other Information That Helps Us Care for You: No Feels Safe at Home: Yes Safety Concerns: Feels Safe At This Time Diet: regular Assistive Devices: Bedside Commode, Glasses, Hospital Bed, Slide Board and Wheelchair Allergies Allergies Allergy/AdvReac Type Severity Reaction Status Date / Time dorzolamide Allergy Severe eyes Verified 05/05/24 20:55 swollen azithromycin Allergy Intermediate Rash Verified 05/05/24 20:55 Home Meds Home Medications Medication Instructions Recorded Confirmed finasteride 5 mg tablet 5 mg PO DAILY 03/13/24 05/05/24 latanoprost 0.005 % eye drops 1 drp OPB DAILY 03/13/24 05/05/24 Demadex 100 mg PO .QPM/UD 05/05/24 05/05/24 aspirin 81 mg tablet,delayed 81 mg PO QAM 05/05/24 05/05/24 release oxycodone 5 mg tablet 5 mg PO HS PRN Pain 05/05/24 05/05/24 warfarin 2.5 mg tablet 2.5 mg PO UD 05/05/24 05/05/24 warfarin 5 mg tablet 5 mg PO .QPM/UD 05/05/24 05/05/24 Previous Rx's Medication Instructions Recorded midodrine 10 mg tablet 10 mg PO TID #60 tabs 02/04/24 Results & Data (ED) Vital Signs Vital Signs - 24 hr 05/05/24 16:37 05/05/24 16:51 05/05/24 17:00 Temperature 36.7 C Temperature Source Oral Pulse Rate 79 82 Pulse Rate [Apical] Respiratory Rate 15 Respiratory Effort / Characteristics Non-Labored Spontaneous Respiratory Depth Normal Respiratory Pattern Blood Pressure 145/95 H Blood Pressure [Right Arm] Blood Pressure Mean 111 Blood Pressure Mean [Right Arm] Blood Pressure Position Lying Pulse Oximetry 94 Oxygen Delivery Method Room Air Room Air Sepsis Recent Fever Within 48 Hours No Sepsis New/Unexplained Change in Mental Status Yes Sepsis Action Taken by Nursing No Action Required 05/05/24 17:00 05/05/24 17:03 05/05/24 17:15 Temperature Temperature Source Pulse Rate Pulse Rate [Apical] 80 87 Respiratory Rate 18 18 Respiratory Effort / Characteristics Non-Labored Spontaneous Non-Labored Spontaneous Respiratory Depth Normal Normal Respiratory Pattern Regular Regular Blood Pressure Blood Pressure [Right Arm] 130/93 135/73 Blood Pressure Mean Blood Pressure Mean [Right Arm] 105 93 Blood Pressure Position Pulse Oximetry 91 93 Oxygen Delivery Method Room Air Room Air Room Air Sepsis Recent Fever Within 48 Hours Sepsis New/Unexplained Change in Mental Status Sepsis Action Taken by Nursing 05/05/24 17:30 05/05/24 17:49 05/05/24 18:00 Temperature 36.7 C Temperature Source Oral Pulse Rate Pulse Rate [Apical] 89 73 78 Respiratory Rate 18 18 12 Respiratory Effort / Characteristics Non-Labored Spontaneous Non-Labored Spontaneous Non-Labored Spontaneous Respiratory Depth Normal Normal Normal Respiratory Pattern Regular Regular Regular Blood Pressure Blood Pressure [Right Arm] 105/62 127/74 142/68 H Blood Pressure Mean Blood Pressure Mean [Right Arm] 76 91 92 Blood Pressure Position Pulse Oximetry 96 95 94 Oxygen Delivery Method Room Air Room Air Room Air Sepsis Recent Fever Within 48 Hours Sepsis New/Unexplained Change in Mental Status Sepsis Action Taken by Nursing 05/05/24 18:15 05/05/24 18:30 05/05/24 19:00 Temperature Temperature Source Pulse Rate Pulse Rate [Apical] 85 89 71 Respiratory Rate 18 18 18 Respiratory Effort / Characteristics Non-Labored Spontaneous Non-Labored Spontaneous Non-Labored Spontaneous Respiratory Depth Normal Normal Normal Respiratory Pattern Regular Regular Regular Blood Pressure Blood Pressure [Right Arm] 135/78 136/102 H 153/82 H Blood Pressure Mean Blood Pressure Mean [Right Arm] 97 113 105 Blood Pressure Position Pulse Oximetry 95 96 97 Oxygen Delivery Method Room Air Room Air Room Air Sepsis Recent Fever Within 48 Hours Sepsis New/Unexplained Change in Mental Status Sepsis Action Taken by Nursing Laboratory Data 05/05/24 16:57 05/05/24 16:57 Lab Results 05/05/24 05/05/24 05/05/24 Range/Units 16:47 16:54 16:57 WBC 20.45 H (4.8-10.8) K/ul RBC 3.25 L (4.70-6.10) M/uL Hgb 10.0 L (14.0-18.0) g/dl Hct 30.4 L (42.0-52.0) % MCV 93.5 (80.0-100.0) fL MCH 30.8 (25.0-34.0) pg MCHC 32.9 (32.0-36.0) g/dL RDW Std Deviation 64.9 H (36.4-46.3) fL RDW Coeff of Vince 19.0 H (11.5-14.5) % Plt Count 654 H (130-400) K/uL MPV 10.3 (9.4-12.4) fL Immature Gran % (Auto) 0.8 % Neut % (Auto) 83.5 % Lymph % (Auto) 5.0 % [place] % (Auto) 10.6 % Eos % (Auto) 0.0 % Baso % (Auto) 0.1 % Neut # (Auto) 17.08 H (1.40-6.50) K/uL Lymph # (Auto) 1.02 L (1.20-3.40) K/uL [place] # (Auto) 2.17 H (0.11-0.59) K/uL Eos # (Auto) 0.00 (0.00-0.50) K/uL Baso # (Auto) 0.02 (0.00-0.20) K/uL Immature Gran # (Auto) 0.16 (0.01-0.20) K/uL Absolute Nucleated RBC 0.20 H (0.00-0.12) K/uL Nucleated RBC % (auto) 1.0 % PT 23.3 H (9.0-12.0) Seconds INR 2.3 H (0.9-1.1) VBG pH (7.36-7.41) VBG pCO2 (38-50) mmHg VBG pO2 mmHg VBG HCO3 mmol/L VBG O2 Saturation % VBG Base Excess mEq/L Sodium 138 (136-145) mmol/L Potassium 3.8 (3.5-5.1) mmol/L Chloride 99 (98-107) mmol/L Carbon Dioxide 29 (21-32) mmol/L Anion Gap 10 (3-11) BUN 96 H (6-23) mg/dl Creatinine 4.55 H* (0.6-1.4) mg/dl Est Cr Clr Drug Dosing 14.9 ml/min eGFR 12.74 BUN/Creatinine Ratio 21.1 H (10-20) Glucose 105 H (70-99(Fasting)) mg/dl POC Glucose 111 H (70-99) mg/dl Lactate (0.4-2.0) mmol/L Calcium 7.8 L (8.6-10.3) mg/dl Magnesium 1.9 (1.7-2.4) mg/dl Total Bilirubin 0.4 (0.2-1.0) mg/dl Direct Bilirubin 0.2 (0-0.2) mg/dl AST 42 H (13-39) U/L ALT 32 (7-52) U/L Alkaline Phosphatase 627 H (34-104) U/L Ammonia (18-72) umol/L Troponin I High Sens 62.8 H* (0-20) pg/ml Total Protein 5.8 L (6.0-8.3) gm/dl Albumin 1.9 L (3.4-5.0) gm/dl Procalcitonin 1.44 H (0-0.5) ng/ml TSH (0.300-4.500) uIu/ml Adenovirus (PCR) Not Detected (NotDetected) B. pertussis DNA (PCR) Not Detected (NotDetected) B.parapertussis DNA PCR Not Detected (NotDetected) C. pneumoniae DNA (PCR) Not Detected (NotDetected) Coronavirus OC43 (PCR) Not Detected (NotDetected) Coronavirus HKU1 (PCR) Not Detected (NotDetected) Coronavirus 229E (PCR) Not Detected (NotDetected) SARS-CoV-2 (PCR) Not Detected (NotDetected) Coronavirus NL63 (PCR) Not Detected (NotDetected) Human Metapneumovir PCR Not Detected (NotDetected) Influenza Type A (PCR) Not Detected (NotDetected) Influenza Type B (PCR) Not Detected (NotDetected) M. pneumoniae (PCR) Not Detected (NotDetected) Parainfluenza 1 (PCR) Not Detected (NotDetected) Parainfluenza 2 (PCR) Not Detected (NotDetected) Parainfluenza 3 (PCR) Not Detected (NotDetected) Parainfluenza 4 (PCR) Not Detected (NotDetected) RSV (PCR) Not Detected (NotDetected) Entero/Rhino (PCR) Not Detected (NotDetected) 05/05/24 05/05/24 05/05/24 Range/Units 17:00 17:25 19:45 WBC (4.8-10.8) K/ul RBC (4.70-6.10) M/uL Hgb (14.0-18.0) g/dl Hct (42.0-52.0) % MCV (80.0-100.0) fL MCH (25.0-34.0) pg MCHC (32.0-36.0) g/dL RDW Std Deviation (36.4-46.3) fL RDW Coeff of Vince (11.5-14.5) % Plt Count (130-400) K/uL MPV (9.4-12.4) fL Immature Gran % (Auto) % Neut % (Auto) % Lymph % (Auto) % [place] % (Auto) % Eos % (Auto) % Baso % (Auto) % Neut # (Auto) (1.40-6.50) K/uL Lymph # (Auto) (1.20-3.40) K/uL [place] # (Auto) (0.11-0.59) K/uL Eos # (Auto) (0.00-0.50) K/uL Baso # (Auto) (0.00-0.20) K/uL Immature Gran # (Auto) (0.01-0.20) K/uL Absolute Nucleated RBC (0.00-0.12) K/uL Nucleated RBC % (auto) % PT (9.0-12.0) Seconds INR (0.9-1.1) VBG pH 7.43 H (7.36-7.41) VBG pCO2 43 (38-50) mmHg VBG pO2 50 mmHg VBG HCO3 29 mmol/L VBG O2 Saturation 79.4 % VBG Base Excess 3.7 mEq/L Sodium (136-145) mmol/L Potassium (3.5-5.1) mmol/L Chloride (98-107) mmol/L Carbon Dioxide (21-32) mmol/L Anion Gap (3-11) BUN (6-23) mg/dl Creatinine (0.6-1.4) mg/dl Est Cr Clr Drug Dosing ml/min eGFR BUN/Creatinine Ratio (10-20) Glucose (70-99(Fasting)) mg/dl POC Glucose (70-99) mg/dl Lactate 2.0 (0.4-2.0) mmol/L Calcium (8.6-10.3) mg/dl Magnesium (1.7-2.4) mg/dl Total Bilirubin (0.2-1.0) mg/dl Direct Bilirubin (0-0.2) mg/dl AST (13-39) U/L ALT (7-52) U/L Alkaline Phosphatase (34-104) U/L Ammonia 54.0 (18-72) umol/L Troponin I High Sens 60.4 H* (0-20) pg/ml Total Protein (6.0-8.3) gm/dl Albumin (3.4-5.0) gm/dl Procalcitonin (0-0.5) ng/ml TSH 3.111 (0.300-4.500) uIu/ml Adenovirus (PCR) (NotDetected) B. pertussis DNA (PCR) (NotDetected) B.parapertussis DNA PCR (NotDetected) C. pneumoniae DNA (PCR) (NotDetected) Coronavirus OC43 (PCR) (NotDetected) Coronavirus HKU1 (PCR) (NotDetected) Coronavirus 229E (PCR) (NotDetected) SARS-CoV-2 (PCR) (NotDetected) Coronavirus NL63 (PCR) (NotDetected) Human Metapneumovir PCR (NotDetected) Influenza Type A (PCR) (NotDetected) Influenza Type B (PCR) (NotDetected) M. pneumoniae (PCR) (NotDetected) Parainfluenza 1 (PCR) (NotDetected) Parainfluenza 2 (PCR) (NotDetected) Parainfluenza 3 (PCR) (NotDetected) Parainfluenza 4 (PCR) (NotDetected) RSV (PCR) (NotDetected) Entero/Rhino (PCR) (NotDetected) Administered Medications Folic Acid (Folic Acid 1 Mg Tab) 1 mg PO QAM [facility] Stop: 06/05/24 08:59 Last Admin: 05/06/24 08:01 Dose: 1 mg Documented By: GURVINDER Piperacillin Sod/Tazobactam Sod (Zosyn) 4.5 gm in 100 mls @ 25 mls/hr IV Q12H [facility]; Protocol Stop: 05/08/24 19:59 Last Admin: 05/06/24 20:00 Dose: 25 mls/hr Documented By: JOSEFA Midodrine (Midodrine Hcl 10 Mg Tab) 10 mg PO TID@0800,1400,1800 [facility] Stop: 06/04/24 21:11 Last Admin: 05/06/24 16:44 Dose: 10 mg Documented By: Admin: 05/06/24 13:56 Dose: 10 mg Documented By: Admin: 05/06/24 08:01 Dose: 10 mg Documented By: Admin: 05/05/24 22:25 Dose: 10 mg Documented By: EMMETT Nystatin (Nystatin Susp 500,000 U/5 Ml Udc) 5 ml PO QID [facility] Stop: 05/16/24 08:59 Last Admin: 05/06/24 20:01 Dose: 5 ml Documented By: Admin: 05/06/24 16:44 Dose: 5 ml Documented By: Admin: 05/06/24 13:55 Dose: 5 ml Documented By: Admin: 05/06/24 08:02 Dose: 5 ml Documented By: GURVINDER Thiamine HCl (Thiamine Hcl 100 Mg Tab) 100 mg PO QAM [facility] Stop: 06/05/24 08:59 Last Admin: 05/06/24 08:01 Dose: 100 mg Documented By: GURVINDER Warfarin Sodium (Warfarin Sod 5 Mg Tab) 5 mg PO DAILY@1600 [facility] Stop: 06/05/24 15:59 Last Admin: 05/06/24 16:44 Dose: 5 mg Documented By: GURVINDER Discontinued Medications Acyclovir (Acyclovir 400 Mg Tab) 400 mg PO BID [facility] Stop: 06/04/24 21:11 Last Admin: 05/06/24 08:01 Dose: 400 mg Documented By: Admin: 05/05/24 22:24 Dose: 400 mg Documented By: EMMETT Sodium Chloride (Nss) 1,000 mls @ 125 mls/hr IV .Q8H [facility] Stop: 05/06/24 16:59 Last Infusion: 05/06/24 06:03 Dose: Infused Documented By: Infusion: 05/05/24 17:29 Dose: 75 mls/hr Documented By: Admin: 05/05/24 17:28 Dose: 125 mls/hr Documented By: JOAN Vancomycin HCl 1,750 mg/ (Sodium Chloride) 535 mls @ 200 mls/hr IV NOW ONE Stop: 05/05/24 20:03 Last Infusion: 05/05/24 20:41 Dose: Infused Documented By: Admin: 05/05/24 18:00 Dose: 200 mls/hr Documented By: JOAN Cefepime HCl (Maxipime 2000mg) 2,000 mg in 20 mls @ 5 mls/min IV NOW STA; Protocol Stop: 05/05/24 17:26 Last Admin: 05/05/24 17:28 Dose: 5 mls/min Documented By: JOAN Cefepime HCl (Maxipime 2000mg) 1,000 mg in 10 mls @ 5 mls/min IV Q12H [facility]HELLE; Protocol Stop: 05/08/24 05:59 Last Admin: 05/06/24 05:57 Dose: 5 mls/min Documented By: MARQUISE Piperacillin Sod/Tazobactam Sod (Zosyn) 4.5 gm in 100 mls @ 200 mls/hr IV ONE ONE; Protocol Stop: 05/06/24 11:44 Last Infusion: 05/06/24 12:17 Dose: Infused Documented By: Admin: 05/06/24 11:47 Dose: 200 mls/hr Documented By: GURVINDER Vancomycin HCl 750 mg/ Sodium (Chloride) 265 mls @ 200 mls/hr IV 1400 ONE Stop: 05/06/24 15:19 Last Infusion: 05/06/24 15:38 Dose: Infused Documented By: Admin: 05/06/24 14:12 Dose: 200 mls/hr Documented By: GURVINDER Ioversol (Optiray 320 100ml) 93 ml IV ONCE ONE Stop: 05/06/24 10:59 Last Admin: 05/06/24 11:00 Dose: 93 ml Documented By: MARIAH Nystatin (Nystatin Susp 500,000 U/5 Ml Udc) 10 ml PO NOW STA Stop: 05/06/24 00:48 Last Admin: 05/06/24 01:32 Dose: 10 ml Documented By: MARQUISE Imaging Data Radiologist's Impression: Chest X-Ray 05/05/24 16:51 Chest radiograph, one view History: Sepsis Comparison: 03/17/2024 Findings: Single AP view of the chest performed. Right IJ dual-lumen central venous catheter tip is seen at the mid to high right atrium. There are low lung volumes at the time of exam, with crowding of the bronchovascular structures. No focal consolidation or pleural effusion. No pneumothorax. The cardiomediastinal silhouette is within normal limits. Normal pulmonary vascularity. No evidence for lymphadenopathy. No visualized bony or soft tissue abnormality. Impression: Normal chest radiograph. Low lung volumes with crowding of the bronchovascular structures at the time of exam. Consider repeat with full inspiratory technique, as above. No focal consolidation. Electronically signed by Ramakrishna Posadas 05-05-2024 5:[address] 05/05/24 17:34 CT head without contrast History: Trauma Comparison: None Technique: Using multidetector thin collimation helical acquisition technique, axial, coronal and sagittal CT images from the skull base to the vertex were obtained without intravenous contrast. Dose reduction techniques were achieved by using automatic exposure control and/or adjustment of mA and/or kV according to patient size and/or use of iterative reconstruction technique. Findings: No intracranial hemorrhage, mass-effect, or midline shift. The ventricles are proportionate to the cerebral sulci. The dior to white matter differentiation of the cerebral hemispheres is preserved. The basal cisterns are patent. Mild generalized cerebral atrophy. The visualized paranasal sinuses are clear. Mastoid air cells are clear. Bilateral pseudophakia. Impression: No acute intracranial pathology. Electronically signed by Ramakrishna Posadas 05-05-2024 6:36 PM Discharge Plan Visit Data Chief Complaint: Confusion Stated Complaint: AM, ALOC, TREMORS ED Provider: Vane Marquez Discharge Problem: AMS (altered mental status), CKD (chronic kidney disease), Anemia, Elevated troponin, Chronic indwelling Sousa catheter Patient Disposition: Admitted As Inpatient Discharge Instructions Interventions: ED Discharge Assessment Last Done: 05/05/24 21:12
[2024-05-05 17:17] LABS: Basophils # (auto) 0.02 K/uL (0.00-0.20); Basophils % (auto) 0.1 %; Hematocrit (blood only) 30.4 % (42.0-52.0); Immature Granulocytes # (auto) 0.16 K/uL (0.01-0.20); Immature Granulocytes % (auto) 0.8 %; Lymphocytes # (auto) 1.02 K/uL (1.20-3.40); Mean Corpuscular Hemoglobin 30.8 pg (25.0-34.0); Mean Corpuscular Hgb Conc 32.9 g/dL (32.0-36.0); Mean Corpuscular Volume 93.5 fL (80.0-100.0); Mean Platelet Volume 10.3 fL (9.4-12.4); Monocytes # (auto) 2.17 K/uL (0.11-0.59); Monocytes % (auto) 10.6 %; Neutrophils # (auto) 17.08 K/uL (1.40-6.50); Neutrophils % (auto) 83.5 %; Platelet Count 654 K/uL (130-400); RDW Standard Deviation 64.9 fL (36.4-46.3); Red Blood Count 3.25 M/uL (4.70-6.10); White Blood Count 20.45 K/ul (4.8-10.8)
--- NOTE | 2024-05-05 17:19 | XRay Report ---
Chest radiograph, one view History: Sepsis Comparison: 03/17/2024 Findings: Single AP view of the chest performed. Right IJ dual-lumen central venous catheter tip is seen at the mid to high right atrium. There are low lung volumes at the time of exam, with crowding of the bronchovascular structures. No focal consolidation or pleural effusion. No pneumothorax. The cardiomediastinal silhouette is within normal limits. Normal pulmonary vascularity. No evidence for lymphadenopathy. No visualized bony or soft tissue abnormality. Impression: Normal chest radiograph. Low lung volumes with crowding of the bronchovascular structures at the time of exam. Consider repeat with full inspiratory technique, as above. No focal consolidation. Electronically signed by Ramakrishna Posadas 05-05-2024 5:19 PM
[2024-05-05] MEDS ORDERED: VANCOMYCIN CONSULT ACTIVE PRN ×2 (17:23→21:12)
[2024-05-05] MEDS: SODIUM CHLORIDE 0.9% 1,000 ML IV SCH (17:28)
[2024-05-05] MEDS: CEFEPIME 2000MG 2,000 MG/20 ML SYR IV STA (17:28)
[2024-05-05 17:35] LABS: Base Excess VBG 3.7 mEq/L; HCO3 VBG 29 mmol/L; Oxygen Saturation VBG 79.4 %; PCO2 VBG 43 mmHg (38-50); PO2 VBG 50 mmHg; pH VBG 7.43 (7.36-7.41)
[2024-05-05 17:38] LABS: Albumin Level 1.9 gm/dl (3.4-5.0); BUN Creatinine Ratio 21.1 (10-20); Bilirubin Direct 0.2 mg/dl (0-0.2); Bilirubin,Total 0.4 mg/dl (0.2-1.0); Calcium 7.8 mg/dl (8.6-10.3); Creatinine Clr Calc Pharmacy 14.9 ml/min; Magnesium 1.9 mg/dl (1.7-2.4); Potassium 3.8 mmol/L (3.5-5.1); Total Protein 5.8 gm/dl (6.0-8.3)
[2024-05-05 17:41] LABS: Troponin I High Sensitivity 62.8 pg/ml (0-20)
[2024-05-05 17:43] LABS: INR 2.3 (0.9-1.1); Prothrombin Time 23.3 Seconds (9.0-12.0)
[2024-05-05] MEDS: VANCOMYCIN HCL 1,750 MG in SODIUM CHLORIDE 0.9% 500 ML IV ONE (18:00)
--- NOTE | 2024-05-05 18:37 | CT Scan Report ---
CT head without contrast History: Trauma Comparison: None Technique: Using multidetector thin collimation helical acquisition technique, axial, coronal and sagittal CT images from the skull base to the vertex were obtained without intravenous contrast. Dose reduction techniques were achieved by using automatic exposure control and/or adjustment of mA and/or kV according to patient size and/or use of iterative reconstruction technique. Findings: No intracranial hemorrhage, mass-effect, or midline shift. The ventricles are proportionate to the cerebral sulci. The dior to white matter differentiation of the cerebral hemispheres is preserved. The basal cisterns are patent. Mild generalized cerebral atrophy. The visualized paranasal sinuses are clear. Mastoid air cells are clear. Bilateral pseudophakia. Impression: No acute intracranial pathology. Electronically signed by Ramakrishna Posadas 05-05-2024 6:36 PM
--- NOTE | 2024-05-05 20:04 | History & Physical Report ---
Date of Service May 05, 2024 Assessment & Plan (1) Acute metabolic encephalopathy: Plan: -patient orriented to place and self, confused throughout examination -likely multifactorial in setting of hyperactive delirium and metabolic deranagements (Sepsis, recent chemo) Plan: -treat underlying condition -check TSH (B12 WNL) -start thiamine, folic acid supplementation -delirium precautions (2) Multiple myeloma without remission: Plan: -IgG Atkinson multiple myeloma, follows with Dr. Brian Dyson -last treatment 05/02/2024 with valcade, darzalex, cyclophosphamide, decadron with palliative intent only -given treatment 4 days ago may be beginning to have side effects from chemotherapy and worsening immunocompromised state Plan: -continue acyclovir prophylaxis -hold decadron - requests consult with Dr. Leigh and Dr. Dyson inpatient if possible to discuss next steps (3) Sepsis: Plan: -in setting of immunocompromised state (amyloid, active multiple myeloma, recent chemotherapy) -very high WBC count and procalcitonin, along with relative tachycardia with chills, shakes suggestive of possible infection -source unclear, differential is broad, includes UTI (alcaraz catheter), CAP, intraabdominal pathology, meningitis (given AMS), other infectious sites Plan: -broad spectrum coverage vanc/cefepime for now -f/u blood, urine cultures -respiratory viral panel ordered -ID consult in AM, may need lumbar puncture (no nuchal ridgiditiy, no fever for now) -finish 1L of NS at slow rate given ESRD -replace alcaraz in AM (4) Immunocompromised: Plan: -in setting of the above (5) AL amyloidosis: Plan: -contributer to immunocompromised state and MM -likely also contributer to metabolic encephalopathy (6) Myocardial injury: Plan: -elevated troponin on admission -likely in setting of ESRD and sepsis Plan: -trend troponin -echo if troponin continues to increase (7) Cirrhosis: Plan: -noted by elevated LFTs -does not appear significantly volume up, minimal to no fluid wave on exam (8) ESRD (end stage renal disease) on dialysis: Plan: -gets dialysis MWF Plan: -nephrology consult for dialysis (9) Buerger disease: Plan: -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 (10) Amputation above knee: Plan: -noted on exam (11) Left leg pain: Plan: -phantom limb pain and neuropathic pain in left leg -gabapentin minimally effective Plan: -recommend consideration of pregablin outpatient (12) Hyperlipidemia: Plan: -not taking statin outpatient Plan Feeding/fluids: regular Analgesia: tylenol liver adjusted Sedation: none Thromboprophylaxis: warfarin Head up position: 30 degrees Ulcer prophylaxis: none Glycemic control: none Spontaneous breathing trial: none Bowel care: miralax Indwelling catheter removal: will need replaced Deescalation of antibiotics: vanc/cefepime, pending clinical course I spent a total of 75 minutes coordinating, documenting, and providing care for this patient excluding time spent in the performance of separately billed services. History of Present Illness Chief Complaint: confusion Primary Care Provider: Rahul Tucker MD 74-year-old male with past medical history of IgG kappa multiple myeloma, ESRD, peripheral vascular disease, cirrhosis, Burger's disease, BPH, AL light chain amyloidosis, left knee amputation, history of pulmonary embolism, tobacco use, hyperlipidemia, hypertension who presents for confusion. Collateral provided by and friend. Patient did not participate in gathering of history. states that he received chemotherapy for his multiple myeloma on . On Monday and Monday he showed signs of fatigue and weakness. Today, he became confused more fatigued and weak than normal. His states that he is quite sick at baseline and this is worse since she has seen him. states patient has not expressed signs of chest pain, shortness of shortness of breath, other associated symptoms. Denies any noted neck stiffness. Long discussion regarding CODE STATUS. is unsure on what to do at this time and they would like full code for now. Is open to further discussions regarding CODE STATUS and goals of care as disease progresses. Is open to palliative care consult at discharge For assistance with controlling symptoms. History of prior tobacco use, social alcohol use. Allergies Allergy/AdvReac Type Severity Reaction Status Date / Time dorzolamide Allergy Severe eyes Verified 01/18/24 11:40 swollen azithromycin Allergy Intermediate Rash Verified 01/18/24 11:40 Home Medications Medication Instructions Recorded Confirmed Type furosemide 20 mg tablet 40 mg PO BID 01/18/24 03/13/24 History midodrine 10 mg tablet 10 mg PO TID #60 tabs 02/04/24 05/05/24 Rx finasteride 5 mg tablet 5 mg PO DAILY 03/13/24 03/13/24 History latanoprost 0.005 % eye drops 1 drp OPB DAILY 03/13/24 03/13/24 History oxycodone 5 mg tablet mg 05/05/24 History warfarin 5 mg tablet mg 05/05/24 History Past Med/Surg History Problem List (Updated 05/05/24 @ 20:38 by Kermit Gomez MD) Cirrhosis Myocardial injury Acute metabolic encephalopathy Sepsis Multiple myeloma without remission Immunocompromised AL amyloidosis ESRD (end stage renal disease) on dialysis Buerger disease Amputation above knee Left leg pain (Acute) Hyperlipidemia Hypertension hx-no current meds; "has low blood pressure now" Medical History AMS (altered mental status) Plasma cell neoplasm Occlusion of artery of lower extremity Ischemic leg Abdominal ascites History of COVID-19 03/2023, not hosp; still has low blood pressure now w/orthostatice hypotension PVCs (premature ventricular contractions) PAC (premature atrial contraction) Fall Rectal bleeding Rotator cuff arthropathy of right shoulder Perforation of tympanic membrane of left ear due to otitis media Degenerative disc disease GERD (gastroesophageal reflux disease) no current meds Monoclonal gammopathy work up underway March 2024 Acute on chronic renal insufficiency Hypoalbuminemia Cirrhosis Orthostatic hypotension Syncope Sensorineural hearing loss (SNHL) of left ear with restricted hearing of right ear Seizure Grand mal (most recent 1978) Migraine History of palpitations BPH (benign prostatic hyperplasia) Bulging disc Osteoarthritis Glaucoma Restless leg syndrome Pulmonary embolism 1985 post-op (back surgery) Surgical History History of reverse total replacement of right shoulder joint right History of sinus surgery Endoscopic sinus surgery (08/09/18): LMA#5, atraumatic at [facility] [place]. No issues noted per post-op anesthesia progress note. H/O eye surgery Detached retina repairs-bilateral H/O sinus surgery History of repair of rotator cuff R/L History of carpal tunnel release R/L History of discectomy Lumbar History of colonoscopy Dr. Richards with polypectomy History of tooth extraction History of cataract surgery R/L Family History Father Family hx of colon cancer Cancer Colorectal cancer Heart disease Grandfather (Maternal) Family hx of colon cancer Grandfather Colorectal cancer Social History Smoking Status: Unknown if ever smoked Tobacco Type: Cigarettes Cigarettes Per Day: 3; Second Hand Exposure: No; Do You Dip or Chew Tobacco: No; Hx Alcohol Use: No Hx Substance Use: No Preferred Language: American Communication Ability: Effective Ui Software Developer Required: No Beliefs That Will Affect Care: None marital status: Current Living Situation: Spouse Feels Safe at Home: Yes Diet: regular Assistive Devices: None Review of Systems Review of Systems: Unable to perform full ROS due to patient status. However, patient denies neck pain, abdominal pain, leg pain. Physical Exam Physical Exam: Gen: A&O 2 NAD HEENT: NCAT, EOMI, not icteric. External ears normal. No rhinorrhea. Moist mucous membranes. Neck: Supple, full range of motion, no observable masses, No meningeal sign. No tenderness to palpation or movement Lungs: No Respiratory distress. CV: RRR, no edema. Abdomen: Soft, nondistended, No rebound tenderness. MSK: No joint swelling, no redness. Noted left leg amputation, no tenderness to palpation Skin: No rashes, petechiae, lesions. Normal color per patient. Neuro: moving all 4 extremtieis Psych: quite altered, appears delirius Results & Data Results & Data Vital Signs (Past 12 Hours) Vital Signs Temp Pulse Pulse Resp BP BP Pulse Ox 05/05/24 19:00 71 18 153/82 H 97 05/05/24 18:30 89 18 136/102 H 96 05/05/24 18:15 85 18 135/78 95 05/05/24 18:00 78 12 142/68 H 94 05/05/24 17:49 36.7 C 73 18 127/74 95 05/05/24 17:30 89 18 105/62 96 05/05/24 17:15 87 18 135/73 93 05/05/24 17:03 05/05/24 17:00 80 18 130/93 91 05/05/24 17:00 82 05/05/24 16:51 05/05/24 16:37 36.7 C 79 15 145/95 H 94 O2 Del Method 05/05/24 19:00 Room Air 05/05/24 18:30 Room Air 05/05/24 18:15 Room Air 05/05/24 18:00 Room Air 05/05/24 17:49 Room Air 05/05/24 17:30 Room Air 05/05/24 17:15 Room Air 05/05/24 17:03 Room Air 05/05/24 17:00 Room Air 05/05/24 17:00 05/05/24 16:51 Room Air 05/05/24 16:37 Room Air Laboratory Results Laboratory Results WBC 20.45 K/ul (4.8-10.8) H 05/05/24 16:57 RBC 3.25 M/uL (4.70-6.10) L 05/05/24 16:57 Hgb 10.0 g/dl (14.0-18.0) L 05/05/24 16:57 Hct 30.4 % (42.0-52.0) L 05/05/24 16:57 MCV 93.5 fL (80.0-100.0) 05/05/24 16:57 MCH 30.8 pg (25.0-34.0) 05/05/24 16:57 MCHC 32.9 g/dL (32.0-36.0) 05/05/24 16:57 RDW Std Deviation 64.9 fL (36.4-46.3) H 05/05/24 16:57 RDW Coeff of Vince 19.0 % (11.5-14.5) H 05/05/24 16:57 Plt Count 654 K/uL (130-400) H 05/05/24 16:57 MPV 10.3 fL (9.4-12.4) 05/05/24 16:57 Immature Gran % (Auto) 0.8 % 05/05/24 16:57 Neut % (Auto) 83.5 % 05/05/24 16:57 Lymph % (Auto) 5.0 % 05/05/24 16:57 [place] % (Auto) 10.6 % 05/05/24 16:57 Eos % (Auto) 0.0 % 05/05/24 16:57 Baso % (Auto) 0.1 % 05/05/24 16:57 Neut # (Auto) 17.08 K/uL (1.40-6.50) H 05/05/24 16:57 Lymph # (Auto) 1.02 K/uL (1.20-3.40) L 05/05/24 16:57 Erie # (Auto) 2.17 K/uL (0.11-0.59) H 05/05/24 16:57 Eos # (Auto) 0.00 K/uL (0.00-0.50) 05/05/24 16:57 Baso # (Auto) 0.02 K/uL (0.00-0.20) 05/05/24 16:57 Immature Gran # (Auto) 0.16 K/uL (0.01-0.20) 05/05/24 16:57 Absolute Nucleated RBC 0.20 K/uL (0.00-0.12) H 05/05/24 16:57 Nucleated RBC % (auto) 1.0 % 05/05/24 16:57 PT 23.3 Seconds (9.0-12.0) H 05/05/24 16:57 INR 2.3 (0.9-1.1) H 05/05/24 16:57 VBG pH 7.43 (7.36-7.41) H 05/05/24 17:25 VBG pCO2 43 mmHg (38-50) 05/05/24 17:25 VBG pO2 50 mmHg 05/05/24 17:25 VBG HCO3 29 mmol/L 05/05/24 17:25 VBG O2 Saturation 79.4 % 05/05/24 17:25 VBG Base Excess 3.7 mEq/L 05/05/24 17:25 Sodium 138 mmol/L (136-145) 05/05/24 16:57 Potassium 3.8 mmol/L (3.5-5.1) 05/05/24 16:57 Chloride 99 mmol/L (98-107) 05/05/24 16:57 Carbon Dioxide 29 mmol/L (21-32) 05/05/24 16:57 Anion Gap 10 (3-11) 05/05/24 16:57 BUN 96 mg/dl (6-23) H 05/05/24 16:57 Creatinine 4.55 mg/dl (0.6-1.4) H* 05/05/24 16:57 Est Cr Clr Drug Dosing 14.9 ml/min 05/05/24 16:57 eGFR 12.74 05/05/24 16:57 BUN/Creatinine Ratio 21.1 (10-20) H 05/05/24 16:57 Glucose 105 mg/dl (70-99(Fasting)) H 05/05/24 16:57 POC Glucose 111 mg/dl (70-99) H 05/05/24 16:47 Lactate 2.0 mmol/L (0.4-2.0) 05/05/24 17:00 Calcium 7.8 mg/dl (8.6-10.3) L 05/05/24 16:57 Magnesium 1.9 mg/dl (1.7-2.4) 05/05/24 16:57 Total Bilirubin 0.4 mg/dl (0.2-1.0) 05/05/24 16:57 Direct Bilirubin 0.2 mg/dl (0-0.2) 05/05/24 16:57 AST 42 U/L (13-39) H 05/05/24 16:57 ALT 32 U/L (7-52) 05/05/24 16:57 Alkaline Phosphatase 627 U/L (34-104) H 05/05/24 16:57 Ammonia 54.0 umol/L (18-72) 05/05/24 17:00 Troponin I High Sens 62.8 pg/ml (0-20) H* 05/05/24 16:57 Total Protein 5.8 gm/dl (6.0-8.3) L 05/05/24 16:57 Albumin 1.9 gm/dl (3.4-5.0) L 05/05/24 16:57 Procalcitonin 1.44 ng/ml (0-0.5) H 05/05/24 16:57 Impressions Chest X-Ray 05/05/24 16:51 Chest radiograph, one view History: Sepsis Comparison: 03/17/2024 Findings: Single AP view of the chest performed. Right IJ dual-lumen central venous catheter tip is seen at the mid to high right atrium. There are low lung volumes at the time of exam, with crowding of the bronchovascular structures. No focal consolidation or pleural effusion. No pneumothorax. The cardiomediastinal silhouette is within normal limits. Normal pulmonary vascularity. No evidence for lymphadenopathy. No visualized bony or soft tissue abnormality. Impression: Normal chest radiograph. Low lung volumes with crowding of the bronchovascular structures at the time of exam. Consider repeat with full inspiratory technique, as above. No focal consolidation. Electronically signed by Ramakrishna Posadas 05-05-2024 5:[address] 05/05/24 17:34 CT head without contrast History: Trauma Comparison: None Technique: Using multidetector thin collimation helical acquisition technique, axial, coronal and sagittal CT images from the skull base to the vertex were obtained without intravenous contrast. Dose reduction techniques were achieved by using automatic exposure control and/or adjustment of mA and/or kV according to patient size and/or use of iterative reconstruction technique. Findings: No intracranial hemorrhage, mass-effect, or midline shift. The ventricles are proportionate to the cerebral sulci. The dior to white matter differentiation of the cerebral hemispheres is preserved. The basal cisterns are patent. Mild generalized cerebral atrophy. The visualized paranasal sinuses are clear. Mastoid air cells are clear. Bilateral pseudophakia. Impression: No acute intracranial pathology. Electronically signed by Ramakrishna Posadas 05-05-2024 6:36 PM Medications Administered Sodium Chloride (Nss) 1,000 mls @ 125 mls/hr IV .Q8H MICHELLE Stop: 05/06/24 16:59 Last Infusion: 05/05/24 17:29 Dose: 75 mls/hr Documented By: Admin: 05/05/24 17:28 Dose: 125 mls/hr Documented By: JOAN Code Status & VTE Plan VTE Prophylaxis Plan VTE Prophylaxis will be ordered: Yes (3) Sepsis Sepsis type: sepsis due to unspecified organism Sepsis acute organ dysfunction status: with acute organ dysfunction Severe sepsis acute organ dysfunction type: encephalopathy Severe sepsis shock status: without septic shock Qualified Code(s): A41.9 - Sepsis, unspecified organism; R65.20 - Severe sepsis without septic shock; G93.41 - Metabolic encephalopathy (7) Cirrhosis Ascites presence: with ascites Hepatic cirrhosis type: unspecified hepatic cirrhosis Qualified Code(s): K74.60 - Unspecified cirrhosis of liver; R18.8 - Other ascites (12) Hyperlipidemia Hyperlipidemia type: mixed hyperlipidemia Qualified Code(s): E78.2 - Mixed hyperlipidemia
[2024-05-05 20:24] LABS: Adenovirus PCR Not Detected (NotDetected); Bordetella parapertussis PCR Not Detected (NotDetected); Bordetella pertussis PCR Not Detected (NotDetected); Chlamydia pneumoniae PCR Not Detected (NotDetected); Coronavirus 229E PCR Not Detected (NotDetected); Coronavirus CoV-2 (COVID19)PCR Not Detected (NotDetected); Coronavirus HKU1 PCR Not Detected (NotDetected); Coronavirus NL63 PCR Not Detected (NotDetected); Coronavirus OC43PCR Not Detected (NotDetected); Human Metapneumovirus PCR Not Detected (NotDetected); Influenza A PCR Not Detected (NotDetected); Influenza B PCR Not Detected (NotDetected); Mycoplasma pneumoniae PCR Not Detected (NotDetected); Parainfluenza Virus 1 PCR Not Detected (NotDetected); Parainfluenza Virus 2 PCR Not Detected (NotDetected); Parainfluenza Virus 3 PCR Not Detected (NotDetected); Parainfluenza Virus 4 PCR Not Detected (NotDetected); Respiratory Syncytial VirusPCR Not Detected (NotDetected); Rhinovirus/Enterovirus PCR Not Detected (NotDetected)
[2024-05-05 20:29] LABS: Troponin I High Sensitivity 60.4 pg/ml (0-20)
[2024-05-05] MEDS ORDERED: POLYETHYLENE (MIRALAX) 17 GM PACK PO PRN (21:12)
[2024-05-05 21:59] LABS: Thyroid Stimulating Hormone 3.111 uIu/ml (0.300-4.500)
[2024-05-05] MEDS: ACYCLOVIR 400 MG TAB PO SCH (22:24)
[2024-05-05] MEDS: MIDODRINE HCL 10 MG TAB PO SCH (22:25)
[2024-05-06 00:55] LABS: Appearance Urine Clear (Clear); Bacteria Urine Automated None Seen (None Seen); Bilirubin Urine Negative (Negative); Blood Urine Trace (Negative); Color Urine Yellow; Epithelial Cell Urine Auto 0-2 /hpf (0-2); Glucose Urine UA 1+ (Negative); Ketones Urine Negative (Negative); Leukocyte Esterase Urine Trace (Negative); Nitrite Urine Negative (Negative); Protein Urine 4+ (Negative); RBC Urine Automated 0-2 /hpf (0-2); Specific Gravity Urine 1.016 (1.000-1.030); Urobilinogen Urine Negative (Negative)
[2024-05-06] MEDS: NYSTATIN SUSP 500,000 U/5 ML UDC PO STA (01:32)
[2024-05-06] MEDS: CEFEPIME 1000MG 1,000 MG/10 ML SYR IV SCH (05:57)
[2024-05-06 07:00] LABS: INR 2.2 (0.9-1.1)
[2024-05-06] MEDS: THIAMINE HCL 100 MG TAB PO SCH (08:01)
[2024-05-06] MEDS: FOLIC ACID 1 MG TAB PO SCH (08:01)
[2024-05-06] MEDS: NYSTATIN SUSP 500,000 U/5 ML UDC PO SCH (08:02)
--- NOTE | 2024-05-06 09:31 | Pharmacy Report ---
Pharmacy PK ABX Note - Date of Service May 06, 2024 - Assessment and Plan Assessment 74 year old M receiving vancomycin and cefepime for potential sepsis. Patient admitted with altered mental status, hx of multiple myeloma recently receiving chemotherapy, ESRD on HD (MWF typically), hx of amputation above knee. Elevated procalcitonin and WBC on admission. Blood cultures x 2 pending. Plan Vancomycin * Loading dose: 1750 mg x 1 received last evening * Random vancomycin level this AM was 13.5 mcg/ml * Patient typically on MWF schedule of HD - plan to redose with vancomycin post dialysis today if ordered. Likely could give small supplemental dose if no dialysis is ordered today (plan for 2360-9293 mg x 1 dose today pending dialysis plan) * Plan to order another random level prior to next dialysis session to assist with further dosing Pharmacy will continue to follow and will adjust dose/frequency as necessary. Thank you. Pharmacy has transitioned to AUC monitoring for vancomycin. AUC/NEHA is the preferred PK/PD target and is associated with decreased risk of nephrotoxicity compared to traditional trough targets.
--- NOTE | 2024-05-06 09:41 | Hospitalist Progress Note ---
Date of Service May 06, 2024 Assessment & Plan (1) Acute metabolic encephalopathy: (2) Multiple myeloma without remission: (3) Sepsis: (4) Immunocompromised: (5) AL amyloidosis: (6) Myocardial injury: (7) Cirrhosis: (8) ESRD (end stage renal disease) on dialysis: (9) Buerger disease: (10) Amputation above knee: (11) Left leg pain: (12) Hyperlipidemia: Plan Patient is a 74-year-old male with past medical history of ESRD on hemodialysis, IgG kappa multiple myeloma, peripheral vascular disease, liver cirrhosis who was brought to the hospital with altered mental status for 3 days. Altered mental status, possibly metabolic encephalopathy Possible sepsis POA AL Amyloidosis on chemotherapy Patient presented with altered mental status and tremors for 3 days; reported to have started on 05/03/2024. Patient had first session of chemotherapy on 05/02/2024 for palliative intent only. Leukocytosis present on admission Urinalysis not suggestive of infection Respiratory viral panel negative CTA chest shows small volume PE with no evidence of right heart strain. No previous CTA chest to rule out previous history of PE; patient was recently started on Coumadin. CTA abdomen showed ascites; no source of sepsis Discussed with Dr. Dyson from oncology on 05/06/2024 whether chemotherapeutic drugs contributed to patient's confusion or not; it is a possibility as per him; mentation is expected to improve if the source is due to chemotherapy agents. MRI brain without contrast is ordered; however patient is confused/agitated; may not be able to undergo the MRI. CT head on admission within normal limits. Continue on empiric antibiotics; follow-up on culture results. ESRD on hemodialysis-nephrology consulted for comanagement Elevated high sensitive troponin in setting of ESRD -troponins elevated to 60s with flat trend. Monitor on telemetry; no complaint of chest pain Cirrhosisascites on CT abdomen/pelvis present. On empiric antibiotics. Burergers disease- conitnue on aspirin. Goals of care was discussed with patient's over the phone. Patient has multiple medical comorbidities including ESRD on hemodialysis, cirrhosis, amyloidosis on chemotherapy.She acknowledges that patient patient had significant decline in his health condition in the last few months.. She would like the patient to be full code for the time being; she will get back to the treatment team later if she would want the CODE STATUS to be changed. Her hope is the patient improves in subsequent days and comes home; she would like him to at home. I also updated her about the CT of the chest finding. Patient has increased risks of blood clots due to nephrotic range proteinuria/co- morbidities; no previous CTA to check whether these clots are acute versus chronic. Coumadin to be continued for the time being after the discussion. Time spent evaluating patient, direct bedside care, chart review, placing orders, interpretation of diagnostic studies, discussion with consultants, patient, and family members, as well as other required patient management activities is 75 minutes Please note the above document was generated using voice recognition software. It may contain grammatical, syntax or spelling errors. Any formal questions or concerns about the content, text or information contained within the body of this dictation should be directly addressed to the provider for clarification Admission and Anticipated Discharge Date Admission Date: May 05, 2024 Subjective Patient seen and examined at bedside. Vital signs are stable; he is afebrile Review of Systems Review of Systems: Unobtainable due to cognitive status Physical Exam Physical Exam: Constitutional: Awake, oriented to self. Not able to answer questions. Unable to follow commands Respiratory: Bilateral vesicular breath sound. Se Cardiovascular: RRR, no murmur, no edema Vessels: no JVD or carotid bruit Chest: normal inspection of chest Abdomen: Soft, nontender. Musculoskeletal: no cyanosis or clubbing, extremities motor strength 5/5 Skin: no rashes, warm and dry normal turgor Neurologic: Grossly moves all extremities. Unable to follow any commands Results & Data Results & Data Vital Signs (Past 12 Hours) Vital Signs Temp Pulse Pulse Resp BP Pulse Ox O2 Del Method 05/06/24 07:44 36.4 C L 73 20 176/69 H 96 Nasal Cannula 05/06/24 03:49 69 05/06/24 02:55 37.0 C 86 19 167/70 H 93 Nasal Cannula 05/06/24 01:00 159/82 H 05/05/24 23:30 36.7 C 71 18 168/88 H 91 Nasal Cannula 05/05/24 22:00 80 18 128/45 L 98 Nasal Cannula O2 Flow Rate 05/06/24 07:44 2 05/06/24 03:49 05/06/24 02:55 2.0 05/06/24 01:00 05/05/24 23:30 2.0 05/05/24 22:00 2 (3) Sepsis Sepsis acute organ dysfunction status: with acute organ dysfunction Sepsis type: sepsis due to unspecified organism Severe sepsis acute organ dysfunction type: encephalopathy Severe sepsis shock status: without septic shock Qualified Code(s): A41.9 - Sepsis, unspecified organism; R65.20 - Severe sepsis without septic shock; G93.41 - Metabolic encephalopathy (7) Cirrhosis Ascites presence: with ascites Hepatic cirrhosis type: unspecified hepatic cirrhosis Qualified Code(s): K74.60 - Unspecified cirrhosis of liver; R18.8 - Other ascites (12) Hyperlipidemia Hyperlipidemia type: mixed hyperlipidemia Qualified Code(s): E78.2 - Mixed hyperlipidemia
[2024-05-06] MEDS: OPTIRAY 320 100ml IV ONE (11:00)
[2024-05-06] MEDS: 4.5GM X1 IV ONE (11:47)
--- NOTE | 2024-05-06 12:03 | CT Scan Report ---
CT abd pelvis IV con only CLINICAL HISTORY: sepsis, rule out intra-abdominal cause TECHNIQUE: Helical axial images of the abdomen and pelvis were obtained and displayed. Automated dose lowering techniques and/or adjustment according to patient size were utilized for this exam. This e xam was performed with intravenous contrast. COMPARISON: Comparison is made to CT abdomen pelvis 11/19/2023 FINDINGS: Lower chest: Trace bilateral pleural effusions are seen with underlying atelectasis. Liver: Unremarkable. No focal lesions are seen. Gallbladder and biliary tree: No calcified gallstones. Normal caliber wall. No intra- or extrahepatic biliary ductal dilation. Pancreas: Unremarkable, no focal lesions. Spleen: Unremarkable. Adrenals: Unremarkable. Kidneys and ureters: Sr. Seen, so which measure greater than simple fluid density. Bladder: Sousa catheter is seen. Reproductive organs: Unremarkable. Bowel: The appendix is normal. There is a small hiatal hernia. Lymph nodes Retroperitoneal: Unremarkable. Pelvic: Unremarkable. Mesenteric: Unremarkable. Peritoneum: Moderate ascites is seen. Vessels: Atherosclerotic calcifications are seen. Abdominal wall: Minimal body wall edema is seen. Bones: Degenerative changes in the visualized spine. IMPRESSION: 1. Moderate ascites is seen. No acute abnormality is seen otherwise. 2. Nodular contour of the liver compatible with cirrhosis. 3. Small amount of body wall edema. 4. Multiple hypodense renal lesions, some of which measure greater than simple fluid density. These were previously evaluated by ultrasound and found to represent cysts, likely proteinaceous or hemorrh agic. ACT 112: Negative or not required by law. Electronically signed by: Manuel Lopez M.D. 05/06/2024 12:01 PM
--- NOTE | 2024-05-06 12:41 | CT Scan Report ---
CHEST CT WITH CONTRAST CT DOSE: DLP is 2423 HISTORY: Rule out pneumonia TECHNIQUE: Multiaxial CT images of the chest were performed following the IV administration of 93 cc of Optiray. A dose lowering technique was utilized adhering to the principles of ALARA. COMPARISON STUDY: 06/14/2023 FINDINGS: There is moderate cardiomegaly with mild prominence of the pulmonary vasculature suggesting CHF. There are trace bilateral pleural effusions with minimal adjacent compressive atelectasis at th e lower lung lobes. Otherwise no pneumonia is seen. No pneumothorax. Right dialysis catheter tip is a t the cavoatrial junction. No pericardial effusion. There are diffuse coronary artery and aortic calc ifications. There are a few small bilateral pulmonary emboli with low clot burden. RV LV ratio is les s than 1. No enlarged adenopathy. No acute osseous findings. Small amount of ascites is present at th e visualized upper abdomen. IMPRESSION: 1. Small volume pulmonary embolism with no evidence of right heart strain. 2. CHF with trace pleural effusions. No pneumonia otherwise. 3. Otherwise as described. ACT 112: Positive. There are findings on this exam that require communication between the performing entity and the patient following Patient Test Result Information Act ([place] Act 112) guidelines. Electronically signed by: Benjamin Gomez 05/06/2024 12:39 PM
[2024-05-06] MEDS: VANCOMYCIN 750 MG in SODIUM CHLORIDE 0.9% 250 ML IV ONE (14:12)
--- NOTE | 2024-05-06 14:25 | Nephrology Consultation ---
Date of Consultation May 06, 2024 Assessment & Plan (1) ESRD (end stage renal disease) on dialysis: currently getting incenter hemodialysis Monday. he had massive edema last time I saw him when he was in [facility] but currently has no edema. still does have radiological evidence of fluid overload to some extent with mild ascites. No significant electrolyte problem. we will do dialysis tomorrow partly because of scheduling reason and lack of emergency need for dialysis today (2) Multiple myeloma without remission: currently getting chemotherapy -cyclophosphamide 150 mg/m every weekly by mouth (50% dose reduction because of ongoing hemodialysis ) ,Velcade 1.3 mg/m every weekly, Darzalex Faspro every weekly for 8 weeks followed by every 2 weekly for additional x 8 doses and then every 4 weekly and Decadron 40 mg every weekly ( p.o. ). appears he had chemo last week (3) Cirrhosis: does have cirrhosis on imaging as well as some degree of ascites (4) Acute metabolic encephalopathy: unclear etiology and he is being worked up in detail Plan Case complexity high and reviewed Oncology note as well as discussed with primary team and call patient's by phone. overall his situation in his prognosis is grim-- multiple myeloma without remission in a patient who already has end-stage renal disease and cirrhosis is as bad prognosis as it gets. is agreeable to get Palliative Medicine involved which is reasonable. total time spent 62 minutes History of Present Illness Reason for Consultation: ESRD on dialysis Attending Physician: Zaire Lopez MD History of Present Illness 74-year-old male who is ESRD on dialysis ( MWF) and gets incenter hemodialysis at the [facility] unit in [place] under the care of Dr. Darby Leigh. other medical problems includes IgG kappa multiple myeloma currently undergoing chemotherapy, peripheral vascular disease, cirrhosis, Burger's disease, BPH, AL light chain amyloidosis, left knee amputation, history of pulmonary embolism, tobacco use, hyperlipidemia, hypertension who presented to the hospital last night because of confusion secondary to encephalopathy. at the time of my examination family member not present at the bedside and patient unable to answer difficult questions. patient received chemotherapy for his multiple myeloma on . On Monday and Monday he showed signs of fatigue and weakness. yesterday, he became confused more fatigued and weak than normal. he did not have chest pain, shortness of shortness of breath, other associated symptoms. last dialysis was on Monday. review of systems unable to obtain as patient is confused and no family member at the bedside. I did call his by phone and gathered basic history as detailed above Physical Exam Physical Exam: Gen: awake alert with eyes closed and moving around. However unable to get meaningful history from the patient and patient is quite confused HEENT: Moist mucous membranes. Neck: Supple, no JVD Lungs: No Respiratory distress. poor inspiratory effort but with limited exam clear to auscultation CV: RRR, no edema. Abdomen: Soft, nondistended, No rebound tenderness. Skin: No rashes Neuro: moving all 4 extremtieis Allergies Allergy/AdvReac Type Severity Reaction Status Date / Time dorzolamide Allergy Severe eyes Verified 05/05/24 20:55 swollen azithromycin Allergy Intermediate Rash Verified 05/05/24 20:55 Home Medications Medication Instructions Recorded Confirmed Type midodrine 10 mg tablet 10 mg PO TID #60 tabs 02/04/24 05/05/24 Rx finasteride 5 mg tablet 5 mg PO DAILY 03/13/24 05/05/24 History latanoprost 0.005 % eye drops 1 drp OPB DAILY 03/13/24 05/05/24 History Demadex 100 mg PO .QPM/UD 05/05/24 05/05/24 History aspirin 81 mg tablet,delayed 81 mg PO QAM 05/05/24 05/05/24 History release oxycodone 5 mg tablet 5 mg PO HS PRN Pain 05/05/24 05/05/24 History warfarin 2.5 mg tablet 2.5 mg PO UD 05/05/24 05/05/24 History warfarin 5 mg tablet 5 mg PO .QPM/UD 05/05/24 05/05/24 History Patient History Medical History AMS (altered mental status) Plasma cell neoplasm Occlusion of artery of lower extremity Ischemic leg Abdominal ascites History of COVID-19 03/2023, not hosp; still has low blood pressure now w/orthostatice hypotension PVCs (premature ventricular contractions) PAC (premature atrial contraction) Fall Rectal bleeding Rotator cuff arthropathy of right shoulder Perforation of tympanic membrane of left ear due to otitis media Degenerative disc disease GERD (gastroesophageal reflux disease) no current meds Monoclonal gammopathy work up underway March 2024 Acute on chronic renal insufficiency Hypoalbuminemia Orthostatic hypotension Syncope Sensorineural hearing loss (SNHL) of left ear with restricted hearing of right ear Seizure Grand mal (most recent 1978) Migraine History of palpitations BPH (benign prostatic hyperplasia) Bulging disc Osteoarthritis Glaucoma Restless leg syndrome Pulmonary embolism 1985 post-op (back surgery) Surgical History History of reverse total replacement of right shoulder joint right History of sinus surgery Endoscopic sinus surgery (08/09/18): LMA#5, [place] [facility] No issues noted per post-op anesthesia progress note. H/O eye surgery Detached retina repairs-bilateral H/O sinus surgery History of repair of rotator cuff R/L History of carpal tunnel release R/L History of discectomy Lumbar History of colonoscopy Dr. Richards with polypectomy History of tooth extraction History of cataract surgery R/L Family History Father Family hx of colon cancer Cancer Colorectal cancer Heart disease Grandfather (Maternal) Family hx of colon cancer Grandfather Colorectal cancer Social History Smoking Status: Unknown if ever smoked Second Hand Exposure: No; Do You Dip or Chew Tobacco: No; Hx Alcohol Use: No Hx Substance Use: No Preferred Language: Indonesian Communication Ability: Effective Broth Mixer Required: No Beliefs That Will Affect Care: None marital status: Current Living Situation: Spouse Other Information That Helps Us Care for You: No Feels Safe at Home: Yes Safety Concerns: Feels Safe At This Time Diet: regular Assistive Devices: None Results & Data Vital Signs (Past 12 Hours) Vital Signs Temp Pulse Pulse Resp BP Pulse Ox O2 Del Method 05/06/24 11:40 36.4 C L 84 19 138/71 96 Oxymask 05/06/24 07:44 36.4 C L 73 20 176/69 H 96 Nasal Cannula 05/06/24 03:49 69 05/06/24 02:55 37.0 C 86 19 167/70 H 93 Nasal Cannula O2 Flow Rate 05/06/24 11:40 2 05/06/24 07:44 2 05/06/24 03:49 05/06/24 02:55 2.0 Laboratory Results reviewed Diagnostic Findings reviewed (3) Cirrhosis Ascites presence: with ascites Hepatic cirrhosis type: unspecified hepatic cirrhosis Qualified Code(s): K74.60 - Unspecified cirrhosis of liver; R18.8 - Other ascites
[2024-05-06] MEDS: WARFARIN SOD 5 MG TAB PO SCH (16:44)
[2024-05-06] MEDS: PIPERACILLIN/TAZOBACTAM 4.5 GM/100 ML BAG IV SCH (20:00)
[2024-05-07 05:56] LABS: Basophils # (auto) 0.01 K/uL (0.00-0.20); Basophils % (auto) 0.1 %; Eosinophils # (auto) 0.27 K/uL (0.00-0.50); Eosinophils % (auto) 1.7 %; Hematocrit (blood only) 28.3 % (42.0-52.0); Hemoglobin 9.5 g/dl (14.0-18.0); Immature Granulocytes # (auto) 0.09 K/uL (0.01-0.20); Immature Granulocytes % (auto) 0.6 %; Lymphocytes # (auto) 1.19 K/uL (1.20-3.40); Lymphocytes % (auto) 7.6 %; Mean Corpuscular Hemoglobin 30.7 pg (25.0-34.0); Mean Corpuscular Hgb Conc 33.6 g/dL (32.0-36.0); Mean Corpuscular Volume 91.6 fL (80.0-100.0); Mean Platelet Volume 10.5 fL (9.4-12.4); Monocytes % (auto) 9.5 %; Neutrophils # (auto) 12.69 K/uL (1.40-6.50); Neutrophils % (auto) 80.5 %; Nucleated RBC # (auto) 0.18 K/uL (0.00-0.12); Nucleated RBC % (auto) 1.1 %; Platelet Count 553 K/uL (130-400); RDW Coefficient of Variation 18.7 % (11.5-14.5); RDW Standard Deviation 60.6 fL (36.4-46.3); Red Blood Count 3.09 M/uL (4.70-6.10); White Blood Count 15.75 K/ul (4.8-10.8)
[2024-05-07 06:08] LABS: BUN Creatinine Ratio 17.7 (10-20); Calcium 7.5 mg/dl (8.6-10.3); Creatinine Clr Calc Pharmacy 12.1 ml/min; Potassium 3.7 mmol/L (3.5-5.1)
[2024-05-07 06:20] LABS: INR 1.9 (0.9-1.1); Prothrombin Time 19.2 Seconds (9.0-12.0)
--- NOTE | 2024-05-07 06:28 | Electrocardiogram Report ---
Test Reason : Blood Pressure : */* mmHG Vent. Rate : 94 BPM Atrial Rate : 94 BPM P-R Int : 144 ms QRS Dur : 76 ms QT Int : 382 ms P-R-T Axes : 64 -51 52 degrees QTcB Int : 477 ms Poor data quality, interpretation may be adversely affected Sinus rhythm Left anterior fascicular block Possible Lateral infarct (cited on or before 15-Mar-2024) Abnormal ECG When compared with ECG of 15-Mar-2024 22:05, No significant change Confirmed by Edward Villavicencio ([id number]) on 05/07/2024 6:27:48 AM Referred By: REFERRED SELF Confirmed By: Edward Villavicencio
--- NOTE | 2024-05-07 08:06 | Pharmacy Report ---
Pharmacy PK ABX Note - Date of Service May 07, 2024 - Assessment and Plan Assessment 05/07 * Random vancomycin level this AM ~17 mcg/ml - HD ordered for today, anticipate ~30% removal * Plan to order vancomycin 1000 mg x 1 for after dialysis today * Will order another random level prior to next dialysis session to assist with further dosing if continued 05/06 * 74 year old M receiving vancomycin and cefepime for potential sepsis. Patient admitted with altered mental status, hx of multiple myeloma recently receiving chemotherapy, ESRD on HD (MWF typically), hx of amputation above knee. Elevated procalcitonin and WBC on admission. Blood cultures x 2 pending. Plan Vancomycin * Plan to give 1000 mg x 1 after dialysis to maintain therapeutic levels * Will order another random prior to next dialysis session Pharmacy will continue to follow and will adjust dose/frequency as necessary. Thank you. Pharmacy has transitioned to AUC monitoring for vancomycin. AUC/NEHA is the preferred PK/PD target and is associated with decreased risk of nephrotoxicity compared to traditional trough targets.
--- NOTE | 2024-05-07 09:36 | Hospitalist Progress Note ---
Date of Service May 07, 2024 Assessment & Plan (1) Acute metabolic encephalopathy: (2) Multiple myeloma without remission: (3) Sepsis: (4) Immunocompromised: (5) AL amyloidosis: (6) Myocardial injury: (7) Cirrhosis: (8) ESRD (end stage renal disease) on dialysis: (9) Buerger disease: (10) Amputation above knee: (11) Left leg pain: (12) Hyperlipidemia: Plan Patient is a 74-year-old male with past medical history of ESRD on hemodialysis, IgG kappa multiple myeloma, peripheral vascular disease, liver cirrhosis who was brought to the hospital with altered mental status for 3 days. Altered mental status, possibly metabolic encephalopathy Possible sepsis POA-ruled out AL Amyloidosis on chemotherapy Patient presented with altered mental status and tremors for 3 days; reported to have started on 05/03/2024. Patient had first session of chemotherapy on 05/02/2024 for palliative intent only. Leukocytosis present on admission; seems chronic from 03/2024 Urinalysis not suggestive of infection Respiratory viral panel negative CTA chest shows small volume PE with no evidence of right heart strain. No previous CTA chest to rule out previous history of PE; patient was recently started on Coumadin. Findings were discussed with patient on 05/06/2023; CTA abdomen showed ascites; no source of sepsis Discussed with Dr. Dyson from oncology on 05/06/2024 whether chemotherapeutic drugs contributed to patient's confusion or not; it is a possibility as per him; mentation is expected to improve in next few days if the source is due to chemotherapy agents. Infectious work up negative so far. Discussed with patient's over the phone on 05/07; she reports that patient's mentation has improved compared to how he was when she visited him in the afternoon on 05/06. She feels that patient's mentation is gradually improving and is getting closer to baseline. I discussed patient's inability to undergo MRI of the brain due to him not be able to lie still. Repeat CT head did not show any other acute finding. I discussed possibility of doing a lumbar puncture for further evaluation. She does not want him to undergo lumbar puncture. I also discussed possible palliative care consult; she does not want palliative care consult as well. She feels that patient will continue to improve with observation. I ordered EEG which she is in agreement with. Antibiotics with vancomycin and Zosyn to be continued for next 24 hours. Continue delirium precaution. She does not want him to get acyclovir which has been discontinued. Neurology consulted for further evaluation for the time being. ESRD on hemodialysis-nephrology consulted for comanagement, Dialysis on MWF Elevated high sensitive troponin in setting of ESRD -troponins elevated to 60s with flat trend. Monitor on telemetry; no complaint of chest pain Cirrhosisascites on CT abdomen/pelvis present. Burergers disease- continue on aspirin. Full code DVT prophylaxis coumadin Time spent evaluating patient, direct bedside care, chart review, placing orders, interpretation of diagnostic studies, discussion with consultants, patient, and family members, as well as other required patient management activities is 50 minutes Please note the above document was generated using voice recognition software. It may contain grammatical, syntax or spelling errors. Any formal questions or concerns about the content, text or information contained within the body of this dictation should be directly addressed to the provider for clarification Admission and Anticipated Discharge Date Admission Date: May 05, 2024 Subjective Patient seen and examined at bedside. He is awake, oriented to self. He is only answering yes/no questions. Vital signs stable; no significant events overnight. Review of Systems Review of Systems: Unobtainable due to mental health condition Physical Exam Physical Exam: Constitutional: Awake, oriented to self. Able to answer questions with yes/no. Respiratory: Bilateral vesicular breath sound. Cardiovascular: RRR, no murmur, no edema Vessels: no JVD or carotid bruit Chest: normal inspection of chest Abdomen: Soft, nontender. Musculoskeletal: left lega AKA Skin: no rashes, warm and dry normal turgor Neurologic: Grossly moves all extremities. Results & Data Results & Data Vital Signs (Past 12 Hours) Vital Signs Temp Pulse Pulse Resp BP Pulse Ox O2 Del Method 05/07/24 07:39 Nasal Cannula 05/07/24 07:37 36.2 C L 91 H 18 165/82 H 98 Nasal Cannula 05/07/24 03:36 36.3 C L 77 18 168/55 H 97 Room Air 05/06/24 23:06 72 05/06/24 22:12 36.6 C 74 18 167/73 H 96 Room Air O2 Flow Rate 05/07/24 07:39 1 05/07/24 07:37 1 05/07/24 03:36 05/06/24 23:06 05/06/24 22:12 (3) Sepsis Sepsis acute organ dysfunction status: with acute organ dysfunction Sepsis type: sepsis due to unspecified organism Severe sepsis acute organ dysfunction type: encephalopathy Severe sepsis shock status: without septic shock Qualified Code(s): A41.9 - Sepsis, unspecified organism; R65.20 - Severe sepsis without septic shock; G93.41 - Metabolic encephalopathy (7) Cirrhosis Ascites presence: with ascites Hepatic cirrhosis type: unspecified hepatic cirrhosis Qualified Code(s): K74.60 - Unspecified cirrhosis of liver; R18.8 - Other ascites (12) Hyperlipidemia Hyperlipidemia type: mixed hyperlipidemia Qualified Code(s): E78.2 - Mixed hyperlipidemia
--- NOTE | 2024-05-07 10:22 | Dialysis Progress Note ---
Date of Service May 07, 2024 Assessment & Plan Admission and Anticipated Discharge Date Admission Date: May 05, 2024 Subjective Assessment & Plan (1) ESRD (end stage renal disease) on dialysis: currently getting in center hemodialysis Monday. he had massive edema last time I saw him when he was in [facility] but currently has no edema. still does have radiological evidence of fluid overload to some extent with mild ascites. No significant electrolyte problem. we will do dialysis today 3.5 hrs and take 2 kilo off. 3k. Consider Palliative med consult. overall his situation and his prognosis is grim-- multiple myeloma without remission in a patient who already has end-stage renal disease and cirrhosis is as bad prognosis as it gets. (2) Multiple myeloma without remission: currently getting chemotherapy -cyclophosphamide 150 mg/m every weekly by mouth (50% dose reduction because of ongoing hemodialysis ) ,Velcade 1.3 mg/m every weekly, Darzalex Faspro every weekly for 8 weeks followed by every 2 weekly for additional x 8 doses and then every 4 weekly and Decadron 40 mg ev eben weekly ( p.o. ). appears he had chemo last week (3) Cirrhosis: does have cirrhosis on imaging as well as some degree of ascites (4) Acute metabolic encephalopathy: unclear etiology and he is being worked up in detail Plan Case complexity high and reviewed Oncology note as well as discussed with primary team and call patient's by phone. S--seen during dialysis. BP is already low. CVC fine. review of systems unable to obtain as patient is confused and no family member at the bedside. I did call his by phone and gathered basic history as detailed above. Physical Exam Physical Exam: Gen: awake alert with eyes closed and moving around. However unable to get meaningful history from the patient and patient is quite confused HEENT: Moist mucous membranes. Neck: Supple, no JVD Lungs: No Respiratory distress. poor inspiratory effort but with limited exam clear to auscultation CV: RRR, no edema. Abdomen: Soft, nondistended, No rebound tenderness. Skin: No rashes Neuro: moving all 4 extremtieis Results & Data Vital Signs (Past 12 Hours) Vital Signs Temp Pulse Pulse Pulse Resp BP BP 05/07/24 10:00 69 98/52 L 05/07/24 09:30 74 96/57 L 05/07/24 09:04 76 109/61 05/07/24 08:57 36.4 C L 76 05/07/24 07:39 05/07/24 07:37 36.2 C L 91 H 18 165/82 H 05/07/24 03:36 36.3 C L 77 18 168/55 H 05/06/24 23:06 72 Pulse Ox O2 Del Method O2 Flow Rate 05/07/24 10:00 05/07/24 09:30 05/07/24 09:04 05/07/24 08:57 05/07/24 07:39 Nasal Cannula 1 05/07/24 07:37 98 Nasal Cannula 1 05/07/24 03:36 97 Room Air 05/06/24 23:06
--- NOTE | 2024-05-07 13:12 | CT Scan Report ---
CT head/brain wo con CLINICAL HISTORY: 74 years-old Male with rule out stroke, unable to undergo MRI. Acute stroke like s ymptoms TECHNIQUE: Multiple axial CT images of the head were obtained without contrast. A dose lowering tech nique was utilized adhering to the principles of ALARA. CT DOSE: 627.18 mGy.cm COMPARISON: 05/05/2024 FINDINGS: Motion degraded exam. Involutional changes with white matter hypodensities suggestive of chronic micr ovascular ischemic disease. No acute intracranial hemorrhage, midline shift, intracranial mass, hydro cephalus, territorial ischemia or abnormal extra-axial collection. The calvarium is intact. The paranasal sinuses, mastoid air cells, and middle ear cavities are clear . IMPRESSION: Motion degraded exam. No acute intracranial abnormality identified. ACT 112: Negative or not required by law. The above report was generated using voice recognition software. It may contain grammatical, syntax o r spelling errors. Electronically signed by: Trevon Veliz M.D. 05/07/2024 1:10 PM
--- NOTE | 2024-05-07 14:35 | Neurology Consultation ---
Date of Consultation May 07, 2024 Assessment & Plan (1) Acute metabolic encephalopathy: Concern remains for possible leptomeningeal carcinomatosis versus metabolic etiology of encephalopathy Patient has known liver and kidney disease as well as multiple myeloma Recommend continued antimicrobial treatment with OUTSIDE SALES MANAGER coverage Continue to monitor for s/s of infection Continue to monitor mentation closely Continue frequent neurological assessments Obtain stat CT brain without contrast for any acute neurological decline Continue to monitor/control blood pressure & blood glucose Agree with continued metabolic workup Recommend MRI brain with and without contrast if mentation does not improve EEG pending, continue to monitor fo s/s of seizure, provide seizure precautions If able to undergo LP recommend meningitis encephalitis panel, cell count, culture, glucose, protein as well as cell cytology to eval for above Agree with continued anticoagulation at this time given PE Continue to monitor for s/s of hemorrhage Continue to monitor/treat pain, try to avoid oversedation Telehealth Consultation Telehealth Information Telehealth Information: I performed this visit using a real-time telehealth connection between my location and the patients location ([facility]). After connecting through interactive tele-video, patient was identified by name and date of and/or wristband check.Patient (or authorized healthcare quality control representative) was informed that this was a telemedicine visit and it was being conducted confidentially over secure lines. My office door was closed and no on e else was present in the room with me.Patient (or authorized healthcare quality control representative) provided consent to proceed with the visit, expressed an understanding of privacy and security of the telemedicine visit, and gave permission to have a hospital quality control representative in the room in order to assist with the visit and to conduct portions of the visit, as needed. I informed the patient (or authorized healthcare quality control representative) that I reviewed their record and presented the opportunity for them to ask any questions regarding the visit today. The patient agreed to participate. History of Present Illness Reason for Consultation: Altered Mental Status Requesting Physician: Dr. Lopez Attending Physician: Zaire Lopez MD History of Present Illness 74yo male with significant past medical hx including ESRD, multiple myeloma, liver cirrhosis, PVD was reportedly demonstrating changes in mentation for several days prior to presentation. He has been undergoing infectious workup since admit on 05/05/24. He has reportedly undergone his initial chemotherapy on 05/02/24. It is noted that changes in mentation reportedly began on 05/03/24. He has undergone CTA chest revealing evidence of PE. He has been on full anticoagulation. CT brain without contrast performed revealing no overt evidence of an acute intracranial process. is reporting some improvement but still far from his baseline. He remains on antimicrobial therapy. EEG is pending. Allergies Allergy/AdvReac Type Severity Reaction Status Date / Time dorzolamide Allergy Severe eyes Verified 05/05/24 20:55 swollen azithromycin Allergy Intermediate Rash Verified 05/05/24 20:55 Home Medications Medication Instructions Recorded Confirmed Type midodrine 10 mg tablet 10 mg PO TID #60 tabs 02/04/24 05/05/24 Rx finasteride 5 mg tablet 5 mg PO DAILY 03/13/24 05/05/24 History latanoprost 0.005 % eye drops 1 drp OPB DAILY 03/13/24 05/05/24 History Demadex 100 mg PO .QPM/UD 05/05/24 05/05/24 History aspirin 81 mg tablet,delayed 81 mg PO QAM 05/05/24 05/05/24 History release oxycodone 5 mg tablet 5 mg PO HS PRN Pain 05/05/24 05/05/24 History warfarin 2.5 mg tablet 2.5 mg PO UD 05/05/24 05/05/24 History warfarin 5 mg tablet 5 mg PO .QPM/UD 05/05/24 05/05/24 History Patient History Medical History AMS (altered mental status) Plasma cell neoplasm Occlusion of artery of lower extremity Ischemic leg Abdominal ascites History of COVID-19 03/2023, not hosp; still has low blood pressure now w/orthostatice hypotension PVCs (premature ventricular contractions) PAC (premature atrial contraction) Fall Rectal bleeding Rotator cuff arthropathy of right shoulder Perforation of tympanic membrane of left ear due to otitis media Degenerative disc disease GERD (gastroesophageal reflux disease) no current meds Monoclonal gammopathy work up underway March 2024 Acute on chronic renal insufficiency Hypoalbuminemia Orthostatic hypotension Syncope Sensorineural hearing loss (SNHL) of left ear with restricted hearing of right ear Seizure Grand mal (most recent 1978) Migraine History of palpitations BPH (benign prostatic hyperplasia) Bulging disc Osteoarthritis Glaucoma Restless leg syndrome Pulmonary embolism 1985 post-op (back surgery) Surgical History History of reverse total replacement of right shoulder joint right History of sinus surgery Endoscopic sinus surgery (08/09/18): LMA#5, atraumatic at [facility] [place]. No issues noted per post-op anesthesia progress note. H/O eye surgery Detached retina repairs-bilateral H/O sinus surgery History of repair of rotator cuff R/L History of carpal tunnel release R/L History of discectomy Lumbar History of colonoscopy Dr. Richards with polypectomy History of tooth extraction History of cataract surgery R/L Family History Father Family hx of colon cancer Cancer Colorectal cancer Heart disease Grandfather (Maternal) Family hx of colon cancer Grandfather Colorectal cancer Social History Smoking Status: Unknown if ever smoked Second Hand Exposure: No; Do You Dip or Chew Tobacco: No; Hx Alcohol Use: No Hx Substance Use: No Preferred Language: Tajik Communication Ability: Effective Vegetable Packer Required: No Beliefs That Will Affect Care: None marital status: Current Living Situation: Spouse Other Information That Helps Us Care for You: No Feels Safe at Home: Yes Safety Concerns: Feels Safe At This Time Diet: regular Assistive Devices: Bedside Commode, Glasses, Hospital Bed, Slide Board and Wheelchair Physical Exam Neurological Examination: Mental Status: Patient is awake Will follow simple commands with persistence Does not readily follow simple commands Does not answer questions or repeat phrases Does not name objects on televideo screens and family at bedside CN testing: I: Unable to accurately assess II:Unable to accurately assess III/IV/: No evidence of gaze preference, hippus, nystagmus or roving eye movements V: Difficult to reliably assess VII: Facial movements appear without evidence of asymmetry VIII: reports hypoacusis- will respond to loud voice inconsistently IX/X: Unable to accurately assess XI: Unable to accurately assess XII: Tongue protrudes midline without evidence of biting Motor exam: Strength appears grossly intact/symmetric in all extremities LLE above knee amputation Sensory: Unable to accurately assess Coordination: Deferred Reflexes: Deferred Gait: Deferred Results & Data Vital Signs (Past 12 Hours) Vital Signs Temp Pulse Pulse Pulse Resp BP BP 05/07/24 12:40 36.4 C L 85 153/65 H 05/07/24 12:30 83 128/69 05/07/24 12:00 92 H 110/81 05/07/24 11:30 78 119/71 05/07/24 11:00 61 88/41 L 05/07/24 10:00 69 98/52 L 05/07/24 09:30 74 96/57 L 05/07/24 09:04 76 109/61 05/07/24 08:57 36.4 C L 76 05/07/24 07:39 05/07/24 07:37 36.2 C L 91 H 18 165/82 H 05/07/24 03:36 36.3 C L 77 18 168/55 H Pulse Ox O2 Del Method O2 Flow Rate 05/07/24 12:40 05/07/24 12:30 05/07/24 12:00 05/07/24 11:30 05/07/24 11:00 05/07/24 10:00 05/07/24 09:30 05/07/24 09:04 05/07/24 08:57 05/07/24 07:39 Nasal Cannula 1 05/07/24 07:37 98 Nasal Cannula 1 05/07/24 03:36 97 Room Air Laboratory Results Abnormal lab results 05/07/24 Range/Units 05:27 WBC 15.75 H (4.8-10.8) K/ul RBC 3.09 L (4.70-6.10) M/uL Hgb 9.5 L (14.0-18.0) g/dl Hct 28.3 L (42.0-52.0) % RDW Std Deviation 60.6 H (36.4-46.3) fL RDW Coeff of Vince 18.7 H (11.5-14.5) % Plt Count 553 H (130-400) K/uL Neut # (Auto) 12.69 H (1.40-6.50) K/uL Lymph # (Auto) 1.19 L (1.20-3.40) K/uL Bay # (Auto) 1.50 H (0.11-0.59) K/uL Absolute Nucleated RBC 0.18 H (0.00-0.12) K/uL PT 19.2 H (9.0-12.0) Seconds INR 1.9 H (0.9-1.1) BUN 100 H (6-23) mg/dl Creatinine 5.64 H* D (0.6-1.4) mg/dl Calcium 7.5 L (8.6-10.3) mg/dl Diagnostic Findings Head CT 05/07/24 09:31 CT head/brain wo con CLINICAL HISTORY: 74 years-old Male with rule out stroke, unable to undergo MRI. Acute stroke like symptoms TECHNIQUE: Multiple axial CT images of the head were obtained without contrast. A dose lowering technique was utilized adhering to the principles of ALARA. CT DOSE: 627.18 mGy.cm COMPARISON: 05/05/2024 FINDINGS: Motion degraded exam. Involutional changes with white matter hypodensities suggestive of chronic microvascular ischemic disease. No acute intracranial hemorrhage, midline shift, intracranial mass, hydrocephalus, territorial ischemia or abnormal extra-axial collection. The calvarium is intact. The paranasal sinuses, mastoid air cells, and middle ear cavities are clear. IMPRESSION: Motion degraded exam. No acute intracranial abnormality identified. ACT 112: Negative or not required by law. The above report was generated using voice recognition software. It may contain grammatical, syntax or spelling errors. Electronically signed by: Trevon Veliz M.D. 05/07/2024 1:10 PM Medications Administered Home Medications Medication Instructions Recorded Confirmed Last Taken midodrine 10 mg tablet 10 mg PO TID #60 tabs 02/04/24 05/05/24 Unknown finasteride 5 mg tablet 5 mg PO DAILY 03/13/24 05/05/24 Unknown latanoprost 0.005 % eye drops 1 drp OPB DAILY 03/13/24 05/05/24 Unknown Demadex 100 mg PO .QPM/UD 05/05/24 05/05/24 Unknown aspirin 81 mg tablet,delayed 81 mg PO QAM 05/05/24 05/05/24 Unknown release oxycodone 5 mg tablet 5 mg PO HS PRN Pain 05/05/24 05/05/24 Unknown warfarin 2.5 mg tablet 2.5 mg PO UD 05/05/24 05/05/24 05/04/24 18:00 2.5MG warfarin 5 mg tablet 5 mg PO .QPM/UD 05/05/24 05/05/24 05/03/24 18:00 5 MG Active Medications Generic Name Dose Route Start Last Admin Trade Name Rafaela PRN Reason Stop Dose Admin Folic Acid 1 mg 05/06/24 09:00 05/07/24 08:17 Folic Acid 1 Mg Tab PO 06/05/24 08:59 1 mg QAM MICHELLE Administration Piperacillin Sod/Tazobactam Sod 4.5 gm in 100 mls @ 25 mls/hr 05/06/24 20:00 05/07/24 13:18 Zosyn IV 05/08/24 19:59 25 mls/hr Q12H MICHELLE Administration Protocol Midodrine 10 mg 05/05/24 21:12 05/07/24 13:18 Midodrine Hcl 10 Mg Tab PO 06/04/24 21:11 10 mg TID@0800,1400,1800 MICHELLE Administration Nystatin 5 ml 05/06/24 09:00 05/07/24 12:18 Nystatin Susp 500,000 U/5 Ml Udc PO 05/16/24 08:59 Not Given QID MICHELLE Thiamine HCl 100 mg 05/06/24 09:00 05/07/24 08:17 Thiamine Hcl 100 Mg Tab PO 06/05/24 08:59 100 mg QAM MICHELLE Administration Warfarin Sodium 5 mg 05/06/24 16:00 05/06/24 16:44 Warfarin Sod 5 Mg Tab PO 06/05/24 15:59 5 mg DAILY@1600 MICHELLE Administration
[2024-05-07] MEDS: ACETAMINOPHEN 500 MG TAB PO PRN (15:08)
[2024-05-07] MEDS: THIAMINE HCL 200 MG in SODIUM CHLORIDE 0.9% 50 ML IV SCH (15:54)
[2024-05-07] MEDS: VANCOMYCIN HCL 1,000 MG/270 ML BAG IV ONE (16:36)
[2024-05-08 06:47] LABS: Basophils # (auto) 0.01 K/uL (0.00-0.20); Basophils % (auto) 0.1 %; Eosinophils # (auto) 0.21 K/uL (0.00-0.50); Eosinophils % (auto) 1.3 %; Hemoglobin 9.8 g/dl (14.0-18.0); Immature Granulocytes # (auto) 0.07 K/uL (0.01-0.20); Immature Granulocytes % (auto) 0.4 %; Lymphocytes # (auto) 1.06 K/uL (1.20-3.40); Lymphocytes % (auto) 6.5 %; Mean Corpuscular Hemoglobin 31.4 pg (25.0-34.0); Mean Corpuscular Hgb Conc 33.8 g/dL (32.0-36.0); Mean Corpuscular Volume 92.9 fL (80.0-100.0); Mean Platelet Volume 10.8 fL (9.4-12.4); Monocytes # (auto) 1.65 K/uL (0.11-0.59); Neutrophils # (auto) 13.43 K/uL (1.40-6.50); Neutrophils % (auto) 81.7 %; Nucleated RBC # (auto) 0.11 K/uL (0.00-0.12); Nucleated RBC % (auto) 0.7 %; Platelet Count 526 K/uL (130-400); RDW Coefficient of Variation 19.5 % (11.5-14.5); RDW Standard Deviation 61.5 fL (36.4-46.3); Red Blood Count 3.12 M/uL (4.70-6.10); White Blood Count 16.43 K/ul (4.8-10.8)
[2024-05-08 07:06] LABS: INR 1.8 (0.9-1.1); Prothrombin Time 18.8 Seconds (9.0-12.0)
[2024-05-08 07:08] LABS: BUN Creatinine Ratio 14.6 (10-20); Calcium 7.4 mg/dl (8.6-10.3); Creatinine Clr Calc Pharmacy 18.7 ml/min; Potassium 3.4 mmol/L (3.5-5.1)
[2024-05-08] MEDS: WARFARIN SOD 2 MG TAB PO ONE (10:04)
--- NOTE | 2024-05-08 10:14 | Nephrology Progress Note ---
Date of Service May 08, 2024 Assessment & Plan Admission and Anticipated Discharge Date Admission Date: May 05, 2024 Subjective Assessment & Plan (1) ESRD (end stage renal disease) on dialysis: currently getting in center hemodialysis Monday. he had massive edema last time I saw him when he was in [facility] but currently has no edema. still does have radiological evidence of fluid overload to some extent with mild ascites. No significant electrolyte problem. we will do dialysis tomorrow and then Monday-- 3 hrs and take 1--1.5 kilo off . next week will be back on schedule of F Consider Palliative med consult. overall his situation and his prognosis is grim-- multiple myeloma without remission in a patient who already has end-stage renal disease and cirrhosis is as bad prognosis as it gets. (2) Multiple myeloma without remission: currently getting chemotherapy -cyclophosphamide 150 mg/m every weekly by mouth (50% dose reduction because of ongoing hemodialysis ) ,Velcade 1.3 mg/m every weekly, Darzalex Faspro every weekly for 8 weeks followed by every 2 we ekly for additional x 8 doses and then every 4 weekly and Decadron 40 mg every weekly ( p.o. ). appears he had chemo last week (3) Cirrhosis: does have cirrhosis on imaging as well as some degree of ascites (4) Acute metabolic encephalopathy: unclear etiology and he is being worked up in detail.neuro consult reviewed S--had dialysis yesterday. NO major issues with that. CVC fine. review of systems unable to obtain as patient is confused and no family member at the bedside. I did call his by phone and gathered basic history as detailed above. Physical Exam Physical Exam: Gen: awake alert with eyes closed and moving around. However unable to get meaningful history from the patient and patient is quite confused HEENT: Moist mucous membranes. Neck: Supple, no JVD Lungs: No Respiratory distress. poor inspiratory effort but with limited exam clear to auscultation CV: RRR, no edema. Abdomen: Soft, nondistended, No rebound tenderness. Skin: No rashes Neuro: moving all 4 extremtieis Results & Data Vital Signs (Past 12 Hours) Vital Signs Temp Pulse Pulse Pulse Resp BP Pulse Ox 05/08/24 07:24 36.5 C 83 16 157/71 H 99 05/08/24 02:49 36.6 C 81 18 141/65 H 97 05/07/24 22:57 84 05/07/24 22:40 36.6 C 88 18 144/64 H 98 O2 Del Method O2 Flow Rate 05/08/24 07:24 Nasal Cannula 1 05/08/24 02:49 Nasal Cannula 1 05/07/24 22:57 05/07/24 22:40 Nasal Cannula 1
--- NOTE | 2024-05-08 11:33 | Pharmacy Report ---
Pharmacy PK ABX Note - Date of Service May 08, 2024 - Assessment and Plan Assessment 05/08 * Random vancomycin level was ~19 mcg/ml - therapeutic * No dialysis ordered for today, per nephrology notes plan to do dialysis again tomorrow () then Monday. * Would anticipate level to remain therapeutic over the next 24 hours - no supplemental vancomycin dose needed for today * Will plan to redose again tomorrow after dialysis - will order another random in AM to assist with further dosing. 05/07 * Random vancomycin level this AM ~17 mcg/ml - HD ordered for today, anticipate ~30% removal * Plan to order vancomycin 1000 mg x 1 for after dialysis today * Will order another random level prior to next dialysis session to assist with further dosing if continued 05/06 * 74 year old M receiving vancomycin and cefepime for potential sepsis. Patient admitted with altered mental status, hx of multiple myeloma recently receiving chemotherapy, ESRD on HD (MWF typically), hx of amputation above knee. Elevated procalcitonin and WBC on admission. Blood cultures x 2 pending. Plan Vancomycin * Last vancomycin dose was yesterday evening after dialysis * No supplemental doses of vancomycin needed for today, patient to remain therapeutic over the next 24 hours * Will order random level tomorrow AM to assist with further dosing Pharmacy will continue to follow and will adjust dose/frequency as necessary. Thank you. Pharmacy has transitioned to AUC monitoring for vancomycin. AUC/NEHA is the preferred PK/PD target and is associated with decreased risk of nephrotoxicity compared to traditional trough targets.
--- NOTE | 2024-05-08 13:00 | Infectious Disease Consult ---
Date of Service May 08, 2024 Telehealth Information I performed this visit using a real-time telehealth connection between my location and the patients location ([facility]). After connecting through interactive tele-video, patient was identified by name and date of and/or wristband check.Patient (or authorized healthcare internet sales representative) was informed that this was a telemedicine visit and it was being conducted confidentially over secure lines. My office door was closed and no o ne else was present in the room with me.Patient (or authorized healthcare internet sales representative) provided consent to proceed with the visit, expressed an understanding of privacy and security of the telemedicine visit, and gave permission to have a hospital internet sales representative in the room in order to assist with the visit and to conduct portions of the visit, as needed. I informed the patient (or authorized healthcare internet sales representative) that I reviewed their record and presented the opportunity for them to ask any questions regarding the visit today. The patient agreed to participate. Assessment & Plan (1) Chronic indwelling Alcaraz catheter: Plan: Recommend changing alcaraz catheter and repeating urine culture (2) AMS (altered mental status): Plan: Recommend MRI of brain with sedation if feasible (3) Multiple myeloma without remission: Plan: Chemotherapy on hold Plan Patient who presented with AMS and was started on broad spectrum antibiotics currently on zosyn with negative infectious work up .There is no clear source of infection and so would recommend discontinuing zosyn .His does not want a LP and zosyn is not an appropriate antibiotic for a neuro infection.He has multiple myeloma and multiple co-morbidities which give him a poor prognosis but his does not want a palliative consult and is not in agreement with a trail of IV acyclovir as if this is a neuro infection it is most likely viral encephalitis and HSV is one of the few treatable viral encephalitis.Recommend monitoring off antibiotics and agree with a MRI of his brain with sedation if feasible.His nurse reports that there was purulent discharge around his alcaraz and so would recommend changing his alcaraz and repeating his urine culture.His prefers to monitor him without agressive interventions and while this is reasonable if he is improving if he deteriorates we should revisit the LP or trial of acyclovir. Thank you for allowing us to participate in the care of this patient ID will continue to follow History of Present Illness History of Present Illness 74 y/o M PMHx of IgG kappa multiple myeloma, ESRD, peripheral vascular disease, cirrhosis, Burger's disease, BPH, AL light chain amyloidosis, s/p left knee amputation, history of pulmonary embolism, tobacco use, hyperlipidemia, hypertension who presented with confusion. His stated that he received chemotherapy for his multiple myeloma last week and 2 days later he showed signs of fatigue and weakness. On May 05 he became more confused and fatigued and was evaluated in the ER where he was started on cefepime and vancomycin later switched to zosyn and vancomycin and now currently on zosyn .His blood and urine cultures were NGTD ,his CT chest revealed small PE and he was started on blood thinners .His CT abdomen revealed ascites and hypodense renal lesions and his infectious work up has so far been negative .A MRI of his brain could not be done Allergies Allergy/AdvReac Type Severity Reaction Status Date / Time dorzolamide Allergy Severe eyes Verified 05/05/24 20:55 swollen azithromycin Allergy Intermediate Rash Verified 05/05/24 20:55 Home Medications Medication Instructions Recorded Confirmed Type midodrine 10 mg tablet 10 mg PO TID #60 tabs 02/04/24 05/05/24 Rx finasteride 5 mg tablet 5 mg PO DAILY 03/13/24 05/05/24 History latanoprost 0.005 % eye drops 1 drp OPB DAILY 03/13/24 05/05/24 History Demadex 100 mg PO .QPM/UD 05/05/24 05/05/24 History aspirin 81 mg tablet,delayed 81 mg PO QAM 05/05/24 05/05/24 History release oxycodone 5 mg tablet 5 mg PO HS PRN Pain 05/05/24 05/05/24 History warfarin 2.5 mg tablet 2.5 mg PO UD 05/05/24 05/05/24 History warfarin 5 mg tablet 5 mg PO .QPM/UD 05/05/24 05/05/24 History Patient History Medical History AMS (altered mental status) Plasma cell neoplasm Occlusion of artery of lower extremity Ischemic leg Abdominal ascites History of COVID-19 03/2023, not hosp; still has low blood pressure now w/orthostatice hypotension PVCs (premature ventricular contractions) PAC (premature atrial contraction) Fall Rectal bleeding Rotator cuff arthropathy of right shoulder Perforation of tympanic membrane of left ear due to otitis media Degenerative disc disease GERD (gastroesophageal reflux disease) no current meds Monoclonal gammopathy work up underway March 2024 Acute on chronic renal insufficiency Hypoalbuminemia Orthostatic hypotension Syncope Sensorineural hearing loss (SNHL) of left ear with restricted hearing of right ear Seizure Grand mal (most recent 1978) Migraine History of palpitations BPH (benign prostatic hyperplasia) Bulging disc Osteoarthritis Glaucoma Restless leg syndrome Pulmonary embolism 1985 post-op (back surgery) Surgical History History of reverse total replacement of right shoulder joint right History of sinus surgery Endoscopic sinus surgery (08/09/18): LMA#5, atraumatic at [facility] [place]. No issues not ed per post-op anesthesia progress note. H/O eye surgery Detached retina repairs-bilateral H/O sinus surgery History of repair of rotator cuff R/L History of carpal tunnel release R/L History of discectomy Lumbar History of colonoscopy Dr. Richards with polypectomy History of tooth extraction History of cataract surgery R/L Family History Father Family hx of colon cancer Cancer Colorectal cancer Heart disease Grandfather (Maternal) Family hx of colon cancer Grandfather Colorectal cancer Social History Smoking Status: Unknown if ever smoked Second Hand Exposure: No; Do You Dip or Chew Tobacco: No; Hx Alcohol Use: No Hx Substance Use: No Preferred Language: Burmese Communication Ability: Effective Pre Parole Counseling Aide Required: No Beliefs That Will Affect Care: None marital status: Current Living Situation: Spouse Other Information That Helps Us Care for You: No Feels Safe at Home: Yes Safety Concerns: Feels Safe At This Time Diet: regular Assistive Devices: Bedside Commode, Glasses, Hospital Bed, Slide Board and Wheelchair Review of Systems lethargic but also agitated Physical Exam no respiratory distress flails his arms and legs no neck stiffness Results & Data Vital Signs (Past 12 Hours) Vital Signs Temp Pulse Pulse Resp BP Pulse Ox O2 Del Method 05/08/24 10:56 36.7 C 89 17 125/61 94 Room Air 05/08/24 07:24 36.5 C 83 16 157/71 H 99 Nasal Cannula 05/08/24 02:49 36.6 C 81 18 141/65 H 97 Nasal Cannula O2 Flow Rate 05/08/24 10:56 05/08/24 07:24 1 05/08/24 02:49 1 Laboratory Results WBC [id number] Diagnostic Findings IMPRESSION: 1. Small volume pulmonary embolism with no evidence of right heart strain. 2. CHF with trace pleural effusions. No pneumonia otherwise. IMPRESSION: 1. Moderate ascites is seen. No acute abnormality is seen otherwise. 2. Nodular contour of the liver compatible with cirrhosis. 3. Small amount of body wall edema. 4. Multiple hypodense renal lesions, some of which measure greater than simple fluid density. These were previously evaluated by ultrasound and found to represent cysts, likely proteinaceous or hemorrhagic.
[2024-05-08 16:11] LABS: Adenovirus F 40/41 PCR Not Detected (NotDetected); Astrovirus PCR Not Detected (NotDetected); Campylobacter PCR Not Detected (NotDetected); Cryptosporidium PCR Not Detected (NotDetected); Cyclospora cayetanensis PCR Not Detected (NotDetected); Entamoeba histolytica PCR Not Detected (NotDetected); Enteroaggregative E.coli(EAEC) Not Detected (NotDetected); Enteropathogenic E.coli (EPEC) Not Detected (NotDetected); Enterotoxigenic E.coli (ETEC) Not Detected (NotDetected); Giardia lamblia PCR Not Detected (NotDetected); Norovirus GI/GII PCR Not Detected (NotDetected); Plesiomonas shigelloides PCR Not Detected (NotDetected); Rotavirus A PCR Not Detected (NotDetected); Salmonella PCR Not Detected (NotDetected); Sapovirus PCR Not Detected (NotDetected); Shiga-like Toxin E.coli (STEC) Not Detected (NotDetected); Shigella/Enteroinvasive E.coli Not Detected (NotDetected); Vibrio cholerae PCR Not Detected (NotDetected); Vibrio species PCR Not Detected (NotDetected); Yersinia enterocolitica PCR Not Detected (NotDetected)
--- NOTE | 2024-05-08 16:16 | Hospitalist Progress Note ---
Date of Service May 08, 2024 Assessment & Plan (1) Acute metabolic encephalopathy: (2) Multiple myeloma without remission: (3) Sepsis: (4) Immunocompromised: (5) AL amyloidosis: (6) Myocardial injury: (7) Cirrhosis: (8) ESRD (end stage renal disease) on dialysis: (9) Buerger disease: (10) Amputation above knee: (11) Left leg pain: (12) Hyperlipidemia: Plan Patient is a 74-year-old male with past medical history of ESRD on hemodialysis, IgG kappa multiple myeloma, peripheral vascular disease, liver cirrhosis who was brought to the hospital with altered mental status for 3 days. Altered mental status, possibly metabolic encephalopathy Possible sepsis POA-ruled out AL Amyloidosis on chemotherapy Patient presented with altered mental status and tremors for 3 days; reported to have started on 05/03/2024. Patient had first session of chemotherapy on 05/02/2024 for palliative intent only. Leukocytosis present on admission; seems chronic from 03/2024 Admitting Urinalysis not suggestive of infection Respiratory viral panel negative CTA chest shows small volume PE with no evidence of right heart strain. No previous CTA chest to rule out previous history of PE; patient was recently started on Coumadin. Findings were discussed by prior attending with patient on 05/06/2023; CTA abdomen showed ascites; no source of sepsis Prior attending discussed with Dr. Dyson from oncology on 05/06/2024 whether chemotherapeutic drugs contributed to patient's confusion or not; it is a possibility as per him; mentation is expected to improve in next few days if the source is due to chemotherapy agents. Infectious work up negative so far. Patient's mentation is gradually improving and is getting closer to baseline. Neurology evaluated 05/07, appreciate recommendation. Prior attending discussed with patient's inability to undergo MRI brain and patient does not want LP. Patient's does not want palliative care consult as well.Patient's does not want him to get acyclovir which has been discontinued. Await EEG, continue delirium precaution. ID evaluated 05/08, DC antibiotic, monitor off antibiotic. Pus noted during alcaraz care, admitting UA neg for UTI, change alcaraz 05/08, fu UA 05/09. DC atb per ID recs, c/t monitor. ESRD on hemodialysis-nephrology consulted for comanagement, Dialysis on MWF Elevated high sensitive troponin in setting of ESRD -troponins elevated to 60s with flat trend. Monitor on telemetry; no complaint of chest pain Cirrhosisascites on CT abdomen/pelvis present. Burergers disease- continue on aspirin. Full code DVT prophylaxis coumadin Admission and Anticipated Discharge Date Admission Date: May 05, 2024 Subjective Patient seen and examined at bedside. He is awake, oriented to self. ROS not Able due to cognition status. Per RN, he is having 5-6 large bowel movements per day, will get a stool PCR, will add probiotics and psyllium fiber. Per RN, there is a note of pus in the Alcaraz catheter during Alcaraz care yesterday, urine in the bag looks light yellow and clear. Urine analysis at admission reviewed. Patient's reported to be eating not so great. Per RN, overall mentation seems to be in improving trend. Physical Exam Physical Exam: Constitutional: Awake, oriented to self. Respiratory: Bilateral vesicular breath sound. Cardiovascular: RRR, no murmur, no edema Vessels: no JVD or carotid bruit Chest: normal inspection of chest Abdomen: Soft, nontender. Musculoskeletal: left lega AKA Skin: no rashes, warm and dry normal turgor Neurologic: Grossly moves all extremities. Alcaraz catheter in situ, light yellow urine collection noted in the bag. Results & Data Results & Data Vital Signs (Past 12 Hours) Vital Signs Temp Pulse Pulse Resp BP Pulse Ox O2 Del Method 05/08/24 15:22 36.4 C L 81 18 133/68 94 Room Air 05/08/24 10:56 36.7 C 89 17 125/61 94 Room Air 05/08/24 07:24 36.5 C 83 16 157/71 H 99 Nasal Cannula O2 Flow Rate 05/08/24 15:22 05/08/24 10:56 05/08/24 07:24 1 (3) Sepsis Sepsis type: sepsis due to unspecified organism Sepsis acute organ dysfunction status: with acute organ dysfunction Severe sepsis acute organ dysfunction type: encephalopathy Severe sepsis shock status: without septic shock Qualified Code(s): A41.9 - Sepsis, unspecified organism; R65.20 - Severe sepsis without septic shock; G93.41 - Metabolic encephalopathy (7) Cirrhosis Ascites presence: with ascites Hepatic cirrhosis type: unspecified hepatic cirrhosis Qualified Code(s): K74.60 - Unspecified cirrhosis of liver; R18.8 - Other ascites (12) Hyperlipidemia Hyperlipidemia type: mixed hyperlipidemia Qualified Code(s): E78.2 - Mixed hyperlipidemia
[2024-05-08] MEDS: PSYLLIUM or GUAR GUM FIBER 4GM PACKET PO SCH (17:23)
[2024-05-08] MEDS: ADVANCED PROBIOTIC 625 MG CAPSULE PO SCH (17:23)
--- NOTE | 2024-05-08 20:31 | Surgery Consultation ---
Date of Consultation May 08, 2024 Assessment & Plan (1) Leg wound, left: Patient is a 74-year-old male admitted to the hospitalist service on 05/05/2024 for metabolic encephalopathy. He does take Coumadin at baseline. Patient had a previous left AKA and this evening the he was noted to have a small pin-point wound to the base of the stump. Nursing staff did attempt to hold pressure and applied a dressing, however the wound was noted to continue have some slight bleeding from the area. Patient was seen and evaluated at bedside this evening. He is alert to person, resting comfortably, with stable vitals. There was a small dressing to the area which was taken down during my exam, there is noted to be a < 0.5cm pin-point wound at the base of the LLE stump with a small amount of bleeding present. I placed some QuikClot gauze and a pressure dressing to the area. We will leave this in place for now and will re-assess patient later this evening. History of Present Illness Reason for Consultation: Left lower extremity wound History of Present Illness Patient is a 74-year-old male with a past medical history of ESRD on hemodialysis (M/W/F), IgG kappa multiple myeloma, peripheral vascular disease, above the knee amputation to the REGINE, and liver cirrhosis who was admitted to the hospitalist service on 05/05/2024 for metabolic encephalopathy. He does take Coumadin at baseline. This evening at shift change the patient was noted to have a small pin-point wound to the base of his LLE stump. It is unclear how the wound had gotten there however the patient did require a Sousa exchange earlier this evening and it was reported that it took multiple staff members to assist due to the patient not cooperating. Nursing staff did attempt to hold pressure at the wound site and also did apply a dressing however it did not seem to stop the bleeding. Surgery team was called due to continued oozing at the wound. Allergies Allergy/AdvReac Type Severity Reaction Status Date / Time dorzolamide Allergy Severe eyes Verified 05/05/24 20:55 swollen azithromycin Allergy Intermediate Rash Verified 05/05/24 20:55 Home Medications Medication Instructions Recorded Confirmed Type midodrine 10 mg tablet 10 mg PO TID #60 tabs 02/04/24 05/05/24 Rx finasteride 5 mg tablet 5 mg PO DAILY 03/13/24 05/05/24 History latanoprost 0.005 % eye drops 1 drp OPB DAILY 03/13/24 05/05/24 History Demadex 100 mg PO .QPM/UD 05/05/24 05/05/24 History aspirin 81 mg tablet,delayed 81 mg PO QAM 05/05/24 05/05/24 History release oxycodone 5 mg tablet 5 mg PO HS PRN Pain 05/05/24 05/05/24 History warfarin 2.5 mg tablet 2.5 mg PO UD 05/05/24 05/05/24 History warfarin 5 mg tablet 5 mg PO .QPM/UD 05/05/24 05/05/24 History Patient History Medical History AMS (altered mental status) Plasma cell neoplasm Occlusion of artery of lower extremity Ischemic leg Abdominal ascites History of COVID-19 03/2023, not hosp; still has low blood pressure now w/orthostatice hypotension PVCs (premature ventricular contractions) PAC (premature atrial contraction) Fall Rectal bleeding Rotator cuff arthropathy of right shoulder Perforation of tympanic membrane of left ear due to otitis media Degenerative disc disease GERD (gastroesophageal reflux disease) no current meds Monoclonal gammopathy work up underway March 2024 Acute on chronic renal insufficiency Hypoalbuminemia Orthostatic hypotension Syncope Sensorineural hearing loss (SNHL) of left ear with restricted hearing of right ear Seizure Grand mal (most recent 1978) Migraine History of palpitations BPH (benign prostatic hyperplasia) Bulging disc Osteoarthritis Glaucoma Restless leg syndrome Pulmonary embolism 1985 post-op (back surgery) Surgical History History of reverse total replacement of right shoulder joint right History of sinus surgery Endoscopic sinus surgery (08/09/18): LMA#5, atraumatic at [facility]. No issues noted per post-op anesthesia progress note. H/O eye surgery Detached retina repairs-bilateral H/O sinus surgery History of repair of rotator cuff R/L History of carpal tunnel release R/L History of discectomy Lumbar History of colonoscopy Dr. Richards with polypectomy History of tooth extraction History of cataract surgery R/L Family History Father Family hx of colon cancer Cancer Colorectal cancer Heart disease Grandfather (Maternal) Family hx of colon cancer Grandfather Colorectal cancer Social History Smoking Status: Unknown if ever smoked Second Hand Exposure: No; Do You Dip or Chew Tobacco: No; Hx Alcohol Use: No Hx Substance Use: No Preferred Language: Vincentian Communication Ability: Effective Drivability Technician Required: No Beliefs That Will Affect Care: None marital status: Current Living Situation: Spouse Other Information That Helps Us Care for You: No Feels Safe at Home: Yes Safety Concerns: Feels Safe At This Time Diet: regular Assistive Devices: Bedside Commode, Glasses, Hospital Bed, Slide Board and Wheelchair Review of Systems Review of Systems: All systems reviewed & are unremarkable except as noted in HPI & below Physical Exam Constitutional: WD/WN, vitals as above Respiratory: normal respiratory effort, lungs clear to auscultation Cardiovascular: RRR, no murmur, no edema Gastrointestinal (Abdomen): normal bowel sounds, soft, nontender, no hepatosplenomegaly Musculoskeletal: LLE noted to have AKA Small pin-point wound (< 0.5cm) noted at the base with slight oozing Results & Data Vital Signs (Past 12 Hours) Vital Signs Temp Pulse Pulse Resp BP Pulse Ox O2 Del Method 05/08/24 19:15 36.6 C 71 18 149/76 H 98 Room Air 05/08/24 15:22 36.4 C L 81 18 133/68 94 Room Air 05/08/24 10:56 36.7 C 89 17 125/61 94 Room Air PG Care Time/CCT Total # of Minutes Spent Total Time Spent with Patient: Total time spent is greater than 50% in coordination of care (as documented) at patient's floor/unit and/or counseling patient: [place] [address] Inpt Consult Level 1 Patient Type New Medical Decision Making Straight Forward Diagnoses Leg wound, left S81.763A
[2024-05-09] MEDS: SILVER NITR/POTASSIUM NITRATE APPLICATOR EXT ONE (03:42)
[2024-05-09 06:12] LABS: Hematocrit (blood only) 27.8 % (42.0-52.0); Hemoglobin 9.4 g/dl (14.0-18.0); Mean Corpuscular Hemoglobin 31.6 pg (25.0-34.0); Mean Corpuscular Hgb Conc 33.8 g/dL (32.0-36.0); Mean Corpuscular Volume 93.6 fL (80.0-100.0); Mean Platelet Volume 10.6 fL (9.4-12.4); Nucleated RBC # (auto) 0.05 K/uL (0.00-0.12); Nucleated RBC % (auto) 0.3 %; Platelet Count 469 K/uL (130-400); RDW Coefficient of Variation 19.5 % (11.5-14.5); RDW Standard Deviation 62.9 fL (36.4-46.3); Red Blood Count 2.97 M/uL (4.70-6.10); White Blood Count 15.15 K/ul (4.8-10.8)
[2024-05-09 06:31] LABS: BUN Creatinine Ratio 12.3 (10-20); Calcium 7.4 mg/dl (8.6-10.3); Creatinine Clr Calc Pharmacy 14.7 ml/min; Magnesium 1.7 mg/dl (1.7-2.4); Phosphorus 6.7 mg/dl (2.5-4.9); Potassium 3.4 mmol/L (3.5-5.1)
[2024-05-09 06:35] LABS: INR 2.1 (0.9-1.1); Prothrombin Time 21.7 Seconds (9.0-12.0)
--- NOTE | 2024-05-09 10:59 | Nephrology Progress Note ---
Date of Service May 09, 2024 Assessment & Plan Admission and Anticipated Discharge Date Admission Date: May 05, 2024 Subjective Assessment & Plan (1) ESRD (end stage renal disease) on dialysis: currently getting in center hemodialysis Monday. he had massive edema last time I saw him when he was in [facility] but currently has no edema. still does have radiological evidence of fluid overload to some extent with mild ascites. No significant electrolyte problem. we will do dialysis later today and then Monday-- 3 hrs and take 1 kilo off. next week will be back on schedule of MWF Consider Palliative med consult. reviewed that does not want this. he is actively dying and is almost totally unresponsive overall his situation and his prognosis is grim-- multiple myeloma without remission in a patient who already has end-stage renal disease and cirrhosis is as bad prognosis as it gets. (2) Multiple myeloma without remission: currently getting chemotherapy -cyclophosphamide 150 mg/m every weekly by mouth (50% dose reduction because of ongoing hemodialysis ) ,Velcade 1.3 mg/m every weekly, Darzalex Faspro every weekly for 8 weeks followed by every 2 weekly for additional x 8 doses and then every 4 weekly and Decadron 40 mg every weekly ( p.o. ). appears he had chemo last week (3) Cirrhosis: does have cirrhosis on imaging as well as some degree of ascites (4) Acute metabolic encephalopathy: unclear etiology and he is being worked up in detail.neuro consult reviewed S--is totally unresponsive--even more than yesterday. CVC fine. review of systems unable to obtain as patient is confused and no family member at the bedside. I did call his by phone and gathered basic history as detailed above. Physical Exam Physical Exam: Gen: awake alert with eyes closed and moving around. However unable to get meaningful history from the patient and patient is quite confused HEENT: Moist mucous membranes. Neck: Supple, no JVD Lungs: No Respiratory distress. poor inspiratory effort but with limited exam clear to auscultation CV: RRR, no edema. Abdomen: Soft, nondistended, No rebound tenderness. Skin: No rashes Neuro: moving all 4 extremtieis Results & Data Vital Signs (Past 12 Hours) Vital Signs Temp Pulse Pulse Resp BP Pulse Ox O2 Del Method 05/09/24 07:58 36.4 C L 87 18 151/63 H 97 Room Air 05/09/24 03:56 37.1 C 81 17 151/72 H 95 Room Air 05/08/24 23:37 36.9 C 86 17 133/70 99 Room Air 05/08/24 23:18 84
--- NOTE | 2024-05-09 15:59 | Surgery Progress Note ---
Date of Service May 09, 2024 Assessment & Plan (1) Leg wound, left: Plan: bleeding controlled with quick clot and pressure dressing H/H stable call as needed. Admission and Anticipated Discharge Date Admission Date: May 05, 2024 Subjective pt seen. resting comfortably. no further bleeding Physical Exam Physical Exam: dressing intact. no blood. Results & Data Vital Signs (Past 12 Hours) Vital Signs Temp Pulse Pulse Resp BP BP BP 05/09/24 15:46 36.5 C 77 18 157/64 H 05/09/24 13:36 05/09/24 11:30 36.5 C 86 16 153/73 H 05/09/24 10:45 36.5 C 99 H 131/83 05/09/24 10:30 89 162/92 H 05/09/24 10:17 93 H 156/75 H 05/09/24 10:11 36.5 C 93 H 05/09/24 07:58 36.4 C L 87 18 151/63 H Pulse Ox O2 Del Method 05/09/24 15:46 98 Room Air 05/09/24 13:36 Room Air 05/09/24 11:30 98 Room Air 05/09/24 10:45 05/09/24 10:30 05/09/24 10:17 05/09/24 10:11 05/09/24 07:58 97 Room Air PG Care Time/CCT Total # of Minutes Spent Total Time Spent with Patient: Total time spent is greater than 50% in coordination of care (as documented) at patient's floor/unit and/or counseling patient: Coding Level of Care Code 91134 SUB INP/OBS CARE 05/25MIN Diagnoses Leg wound, left S81.802A
--- NOTE | 2024-05-09 16:16 | Hospitalist Progress Note ---
Date of Service May 09, 2024 Assessment & Plan (1) Acute metabolic encephalopathy: (2) Multiple myeloma without remission: (3) Sepsis: (4) Immunocompromised: (5) AL amyloidosis: (6) Myocardial injury: (7) Cirrhosis: (8) ESRD (end stage renal disease) on dialysis: (9) Buerger disease: (10) Amputation above knee: (11) Left leg pain: (12) Hyperlipidemia: Plan Patient is a 74-year-old male with past medical history of ESRD on hemodialysis, IgG kappa multiple myeloma, peripheral vascular disease, liver cirrhosis who was brought to the hospital with altered mental status for 3 days. Altered mental status, possibly metabolic encephalopathy Possible sepsis POA-ruled out AL Amyloidosis on chemotherapy Patient presented with altered mental status and tremors for 3 days; reported to have started on 05/03/2024. Patient had first session of chemotherapy on 05/02/2024 for palliative intent only. Leukocytosis present on admission; seems chronic from 03/2024 Admitting Urinalysis not suggestive of infection Respiratory viral panel negative CTA chest shows small volume PE with no evidence of right heart strain. No previous CTA chest to rule out previous history of PE; patient was recently started on Coumadin. Findings were discussed by prior attending with patient on 05/06/2023; CTA abdomen showed ascites; no source of sepsis Prior attending discussed with Dr. Dyson from oncology on 05/06/2024 whether chemotherapeutic drugs contributed to patient's confusion or not; it is a possibility as per him; mentation is expected to improve in next few days if the source is due to chemotherapy agents. Infectious work up negative so far. Patient's mentation is gradually improving and is getting closer to baseline. Neurology evaluated 05/07, appreciate recommendation. Prior attending discussed with patient's inability to undergo MRI brain and patient does not want LP. Patient's does not want palliative care consult as well.Patient's does not want him to get acyclovir which has been discontinued. Await EEG, continue delirium precaution. ID evaluated 05/08, DC antibiotic, monitor off antibiotic. Pus noted during alcaraz care, admitting UA neg for UTI, change alcaraz 05/08, fu UA 05/09. UA sent 05/09. DC atb per ID recs, c/t monitor. No deterioration in mentation observed off of antibiotic. Left AKA stump site bleeding: Noted overnight of 1/8 - 05/09. General surgery evaluated, compression bandage applied, bleeding controlled. HnH stable. ESRD on hemodialysis-nephrology consulted for comanagement, Dialysis on MWF Elevated high sensitive troponin in setting of ESRD -troponins elevated to 60s with flat trend. Monitor on telemetry; no complaint of chest pain Cirrhosisascites on CT abdomen/pelvis present. Burergers disease- continue on aspirin. Full code DVT prophylaxis coumadin PT/OT, CM to assist with DC planning. Admission and Anticipated Discharge Date Admission Date: May 05, 2024 Subjective Patient seen and examined at bedside. He is awake, oriented to self. ROS not Able due to cognition status. Per RN patient had multiple loose large bowel movements yesterday and overnight, so far 1 bowel movement today by late afternoon. Overnight, patient had small bleeding from his left AKA site with surgery evaluated. Per RN, overall mentation seems to be in improving trend. Physical Exam Physical Exam: Constitutional: Awake, oriented to self. Respiratory: Bilateral vesicular breath sound. Cardiovascular: RRR, no murmur, no edema Vessels: no JVD or carotid bruit Chest: normal inspection of chest Abdomen: Soft, nontender. Musculoskeletal: left lega AKA Skin: no rashes, warm and dry normal turgor Neurologic: Grossly moves all extremities. Alcaraz catheter in situ, light yellow urine collection noted in the bag. Results & Data Results & Data Vital Signs (Past 12 Hours) Vital Signs Temp Pulse Pulse Resp BP BP BP 05/09/24 15:46 36.5 C 77 18 157/64 H 05/09/24 13:36 05/09/24 11:30 36.5 C 86 16 153/73 H 05/09/24 10:45 36.5 C 99 H 131/83 05/09/24 10:30 89 162/92 H 05/09/24 10:17 93 H 156/75 H 05/09/24 10:11 36.5 C 93 H 05/09/24 07:58 36.4 C L 87 18 151/63 H Pulse Ox O2 Del Method 05/09/24 15:46 98 Room Air 05/09/24 13:36 Room Air 05/09/24 11:30 98 Room Air 05/09/24 10:45 05/09/24 10:30 05/09/24 10:17 05/09/24 10:11 05/09/24 07:58 97 Room Air (3) Sepsis Sepsis type: sepsis due to unspecified organism Sepsis acute organ dysfunction status: with acute organ dysfunction Severe sepsis acute organ dysfunction type: encephalopathy Severe sepsis shock status: without septic shock Qualified Code(s): A41.9 - Sepsis, unspecified organism; R65.20 - Severe sepsis without septic shock; G93.41 - Metabolic encephalopathy (7) Cirrhosis Ascites presence: with ascites Hepatic cirrhosis type: unspecified hepatic cirrhosis Qualified Code(s): K74.60 - Unspecified cirrhosis of liver; R18.8 - Other ascites (12) Hyperlipidemia Hyperlipidemia type: mixed hyperlipidemia Qualified Code(s): E78.2 - Mixed hyperlipidemia
[2024-05-10 05:22] LABS: Appearance Urine Clear (Clear); Bacteria Urine Automated None Seen (None Seen); Bilirubin Urine Negative (Negative); Blood Urine 1+ (Negative); Color Urine Yellow; Epithelial Cell Urine Auto 0-2 /hpf (0-2); Glucose Urine UA 2+ (Negative); Ketones Urine Trace (Negative); Leukocyte Esterase Urine Trace (Negative); Nitrite Urine Negative (Negative); Protein Urine 4+ (Negative); Specific Gravity Urine 1.021 (1.000-1.030); Urobilinogen Urine Negative (Negative); pH Urine 7.5 (4.5-7.5)
[2024-05-10 07:17] LABS: Hematocrit (blood only) 29.6 % (42.0-52.0); Hemoglobin 9.8 g/dl (14.0-18.0); Mean Corpuscular Hemoglobin 31.3 pg (25.0-34.0); Mean Corpuscular Hgb Conc 33.1 g/dL (32.0-36.0); Mean Corpuscular Volume 94.6 fL (80.0-100.0); Mean Platelet Volume 10.6 fL (9.4-12.4); Nucleated RBC # (auto) 0.02 K/uL (0.00-0.12); Nucleated RBC % (auto) 0.2 %; Platelet Count 485 K/uL (130-400); RDW Coefficient of Variation 19.7 % (11.5-14.5); RDW Standard Deviation 63.8 fL (36.4-46.3); Red Blood Count 3.13 M/uL (4.70-6.10); White Blood Count 13.32 K/ul (4.8-10.8)
[2024-05-10 07:39] LABS: INR 2.2 (0.9-1.1); Prothrombin Time 22.7 Seconds (9.0-12.0)
[2024-05-10 07:41] LABS: BUN Creatinine Ratio 11.6 (10-20); Calcium 7.4 mg/dl (8.6-10.3); Creatinine Clr Calc Pharmacy 13.8 ml/min
[2024-05-10 10:06] LABS: Potassium 3.5 mmol/L (3.5-5.1)
--- NOTE | 2024-05-10 10:20 | Dialysis Progress Note ---
Date of Service May 10, 2024 Assessment & Plan Admission and Anticipated Discharge Date Admission Date: May 05, 2024 Subjective Assessment & Plan (1) ESRD (end stage renal disease) on dialysis: currently getting in center hemodialysis Monday. he had massive edema last time I saw him when he was in [facility] but currently has no edema. still does have radiological evidence of fluid overload to some extent with mild ascites. No significant electrolyte problem. we will do dialysis today and then Monday-- 3 hrs and take 1-1.5 kilo off. next week will be back on schedule of MWF reviewed that does not want palliative and also wants to continue dialysis. I am not revisiting this Again and will continue Dialysis unless told otherwise by . overall his situation and his prognosis is grim-- multiple myeloma without remission in a patient who already has end-stage renal disease and cirrhosis is as bad prognosis as it gets. (2) Multiple myeloma without remission: currently getting chemotherapy -cyclophosphamide 150 mg/m every weekly by mouth (50% dose reduction because of ongoing hemodialysis ) ,Velcade 1.3 mg/m every weekly, Darzalex Faspro every weekly for 8 weeks followed by every 2 weekly for additional x 8 doses and then every 4 weekly and Decadron 40 mg every weekly ( p.o. ). appears he had chemo last week (3) Cirrhosis: does have cirrhosis on imaging as well as some degree of ascites (4) Acute metabolic encephalopathy: unclear etiology and he is being worked up in detail. neuro consult reviewed S- Seen in dialysis. So far he is calm. However was dangerously agitated/Confused in Dialysis yesterday and had to stop dialysis. BPis fine and CVC fine. review of systems unable to obtain as patient is confused and no family member at the bedside. I did call his by phone and gathered basic history as detailed above. Physical Exam Physical Exam: Gen: awake alert with eyes closed and moving around. However unable to get meaningful history from the patient and patient is quite confused HEENT: Moist mucous membranes. Neck: Supple, no JVD Lungs: No Respiratory distress. poor inspiratory effort but with limited exam clear to auscultation CV: RRR, no edema. Abdomen: Soft, nondistended, No rebound tenderness. Skin: No rashes Neuro: moving all 4 extremities Results & Data Vital Signs (Past 12 Hours) Vital Signs Temp Pulse Pulse Pulse Resp BP Pulse Ox 05/10/24 09:16 36.5 C 72 05/10/24 08:00 36.6 C 84 16 156/83 H 97 05/10/24 04:48 36.6 C 76 16 124/54 L 92 05/10/24 00:01 36.4 C L 80 16 148/70 H 98 05/09/24 23:44 85 O2 Del Method 05/10/24 09:16 05/10/24 08:00 Room Air 05/10/24 04:48 Room Air 05/10/24 00:01 Room Air 05/09/24 23:44
--- NOTE | 2024-05-10 13:06 | Hospitalist Progress Note ---
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 Altered mental status, possibly metabolic encephalopathy Possible sepsis POA-ruled out AL Amyloidosis on chemotherapy Patient presented with altered mental status and tremors for 3 days; reported to have started on 05/03/2024. Patient had first session of chemotherapy on 05/02/2024 for palliative intent only. Leukocytosis present on admission; seems chronic from 03/2024 Admitting Urinalysis not suggestive of infection Respiratory viral panel negative CTA chest shows small volume PE with no evidence of right heart strain. No previous CTA chest to rule out previous history of PE; patient was recently started on Coumadin. Findings were discussed by prior attending with patient on 05/06/2023; CTA abdomen showed ascites; no source of sepsis Prior attending discussed with Dr. Dyson from oncology on 05/06/2024 whether chemotherapeutic drugs contributed to patient's confusion or not; it is a possibility as per him; mentation is expected to improve in next few days if the source is due to chemotherapy agents. Infectious work up negative so far. Patient's mentation is gradually improving and is getting closer to baseline. Neurology evaluated 05/07, appreciate recommendation. Prior attending discussed with patient's inability to undergo MRI brain and patient does not want LP. Patient's does not want palliative care consult as well.Patient's does not want him to get acyclovir which has been discontinued. Await EEG, continue delirium precaution. ID evaluated 05/08, DC antibiotic, monitor off antibiotic. Pus noted during alcaraz care, admitting UA neg for UTI, change alcaraz 05/08 was ordered, fu UA 05/09 and UCx. DC atb per ID recs, c/t monitor. No deterioration in mentation observed off of antibiotic. Left AKA stump site bleeding: Noted overnight of 05/08 - 05/09. General surgery evaluated, compression bandage applied, bleeding controlled. HnH stable. ESRD on hemodialysis-nephrology consulted for comanagement, Dialysis on MWF Elevated high sensitive troponin in setting of ESRD -troponins elevated to 60s with flat trend. Monitor on telemetry; no complaint of chest pain Cirrhosisascites on CT abdomen/pelvis present. Burergers disease- continue on aspirin. Full code DVT prophylaxis coumadin PT/OT, CM to assist with DC planning. likely should be able to dc in 1-2 days. Patient's Bina was updated over the phone 05/10, answered all her questions. She wanted PT/OT to eval him and would like to see if she can take him home versus he needs rehab. Admission and Anticipated Discharge Date Admission Date: May 05, 2024 Subjective Patient seen and examined at bedside. He is awake, oriented to self and year today. ROS not Able due to cognition status. but he denies pain. Per RN patient had loose stools 2 overnight and 1 in AM. Per RN, overall mentation seems to be in improving trend. Physical Exam Physical Exam: Constitutional: Awake, oriented to self. Respiratory: Bilateral vesicular breath sound. Cardiovascular: RRR, no murmur, no edema Vessels: no JVD or carotid bruit Chest: normal inspection of chest Abdomen: Soft, nontender. Musculoskeletal: left lega AKA Skin: no rashes, warm and dry normal turgor Neurologic: Grossly moves all extremities. Alcaraz catheter in situ, light yellow urine collection noted in the bag. Results & Data Results & Data Vital Signs (Past 12 Hours) Vital Signs Temp Pulse Pulse Pulse Resp BP BP 05/10/24 11:30 63 128/68 05/10/24 11:00 64 129/66 05/10/24 10:30 69 106/64 05/10/24 10:00 64 140/70 05/10/24 09:30 69 122/69 05/10/24 09:24 69 116/68 05/10/24 09:16 36.5 C 72 05/10/24 08:00 36.6 C 84 16 156/83 H 05/10/24 07:40 05/10/24 04:48 36.6 C 76 16 124/54 L Pulse Ox O2 Del Method 05/10/24 11:30 05/10/24 11:00 05/10/24 10:30 05/10/24 10:00 05/10/24 09:30 05/10/24 09:24 05/10/24 09:16 05/10/24 08:00 97 Room Air 05/10/24 07:40 Room Air 05/10/24 04:48 92 Room Air (3) Sepsis Sepsis acute organ dysfunction status: with acute organ dysfunction Sepsis type: sepsis due to unspecified organism Severe sepsis acute organ dysfunction type: encephalopathy Severe sepsis shock status: without septic shock Qualified Code(s): A41.9 - Sepsis, unspecified organism; R65.20 - Severe sepsis without septic shock; G93.41 - Metabolic encephalopathy (7) Cirrhosis Ascites presence: with ascites Hepatic cirrhosis type: unspecified hepatic cirrhosis Qualified Code(s): K74.60 - Unspecified cirrhosis of liver; R18.8 - Other ascites (12) Hyperlipidemia Hyperlipidemia type: mixed hyperlipidemia Qualified Code(s): E78.2 - Mixed hyperlipidemia
[2024-05-10] MEDS: ASPIRIN 81 MG ECTAB PO SCH (14:17)
[2024-05-10] MEDS: LATANOPROST 0.005% OP SOLN 2.5 ML BTL OPB SCH (14:18)
[2024-05-11 07:10] LABS: Hematocrit (blood only) 30.9 % (42.0-52.0); Mean Corpuscular Hemoglobin 31.3 pg (25.0-34.0); Mean Corpuscular Hgb Conc 32.4 g/dL (32.0-36.0); Mean Corpuscular Volume 96.6 fL (80.0-100.0); Mean Platelet Volume 10.3 fL (9.4-12.4); Platelet Count 470 K/uL (130-400); RDW Coefficient of Variation 17.8 % (11.5-14.5); RDW Standard Deviation 61.8 fL (36.4-46.3); White Blood Count 11.93 K/ul (4.8-10.8)
[2024-05-11 07:43] LABS: BUN Creatinine Ratio 9.2 (10-20); Calcium 7.2 mg/dl (8.6-10.3); Creatinine Clr Calc Pharmacy 19.5 ml/min; Magnesium 1.7 mg/dl (1.7-2.4); Potassium 3.7 mmol/L (3.5-5.1)
[2024-05-11] MEDS: FINASTERIDE 5 MG TAB PO SCH (08:22)
[2024-05-11] MEDS: LOPERAMIDE HCL 2 MG CAP PO PRN (10:37)
--- NOTE | 2024-05-11 14:30 | Hospitalist Progress Note ---
Date of Service May 11, 2024 Assessment & Plan (1) Acute metabolic encephalopathy: (2) Multiple myeloma without remission: (3) Sepsis: (4) Immunocompromised: (5) AL amyloidosis: (6) Myocardial injury: (7) Cirrhosis: (8) ESRD (end stage renal disease) on dialysis: (9) Buerger disease: (10) Amputation above knee: (11) Left leg pain: (12) Hyperlipidemia: Plan Patient is a 74-year-old male with past medical history of ESRD on hemodialysis, IgG kappa multiple myeloma, peripheral vascular disease, liver cirrhosis who was brought to the hospital with altered mental status for 3 days. Altered mental status, possibly metabolic encephalopathy Possible sepsis POA-ruled out AL Amyloidosis on chemotherapy Patient presented with altered mental status and tremors for 3 days; reported to have started on 05/03/2024. Patient had first session of chemotherapy on 05/02/2024 for palliative intent only. Leukocytosis present on admission; seems chronic from 03/2024 Admitting Urinalysis not suggestive of infection Respiratory viral panel negative CTA chest shows small volume PE with no evidence of right heart strain. No previous CTA chest to rule out previous history of PE; patient was recently started on Coumadin. Findings were discussed by prior attending with patient on 05/06/2023; CTA abdomen showed ascites; no source of sepsis Prior attending discussed with Dr. Dyson from oncology on 05/06/2024 whether chemotherapeutic drugs contributed to patient's confusion or not; it is a possibility as per him; mentation is expected to improve in next few days if the source is due to chemotherapy agents. Infectious work up negative so far. Patient's mentation is gradually improving and is getting closer to baseline. Neurology evaluated 05/07, appreciate recommendation. Prior attending discussed with patient's inability to undergo MRI brain and patient does not want LP. Patient's does not want palliative care consult as well.Patient's does not want him to get acyclovir which has been discontinued. Await EEG, continue delirium precaution. ID evaluated 05/08, DC antibiotic, monitor off antibiotic. Pus noted during alcaraz care, admitting UA neg for UTI, change alcaraz 05/08 was ordered, fu UA 05/09 and UCx. DC atb per ID recs, c/t monitor. No deterioration in mentation observed off of antibiotic. Loose stool: neg for c diff, stool pcr neg. c/w probiotic, psyllium, add loperamide and questran. follow. Pt not belly pain or tenderness. Left AKA stump site bleeding: Noted overnight of 05/08 - 05/09. General surgery evaluated, compression bandage applied, bleeding controlled. HnH stable. ESRD on hemodialysis-nephrology consulted for comanagement, Dialysis on MWF Elevated high sensitive troponin in setting of ESRD -troponins elevated to 60s with flat trend. Monitor on telemetry; no complaint of chest pain Cirrhosisascites on CT abdomen/pelvis present. Burergers disease- continue on aspirin. Full code DVT prophylaxis coumadin PT/OT, CM to assist with DC planning. likely should be able to dc in 1-2 days. Patient's Bina was updated over the phone 05/10 and 05/11, answered all her questions. She wanted PT/OT to eval him and would like to see if she can take him home versus he needs rehab. Admission and Anticipated Discharge Date Admission Date: May 05, 2024 Subjective Patient seen and examined at bedside. He is awake, oriented to self and year and person today. ROS not Able due to cognition status. but he denies pain. Per RN patient had loose stools 2 overnight and 1 in AM. reports multiple loose stools yesterday Physical Exam Physical Exam: Constitutional: Awake, oriented to self. Respiratory: Bilateral vesicular breath sound. Cardiovascular: RRR, no murmur, no edema Vessels: no JVD or carotid bruit Chest: normal inspection of chest Abdomen: Soft, nontender. Musculoskeletal: left lega AKA Skin: no rashes, warm and dry normal turgor Neurologic: Grossly moves all extremities. Alcaraz catheter in situ, light yellow urine collection noted in the bag. Results & Data Results & Data Vital Signs (Past 12 Hours) Vital Signs Temp Pulse Pulse Resp BP Pulse Ox O2 Del Method 05/11/24 12:05 36.5 C 69 18 100/51 L 95 Room Air 05/11/24 07:16 36.9 C 69 19 135/62 98 Room Air 05/11/24 02:49 36.6 C 66 18 136/63 96 Room Air (3) Sepsis Sepsis type: sepsis due to unspecified organism Sepsis acute organ dysfunct ion status: with acute organ dysfunction Severe sepsis acute organ dysfunction type: encephalopathy Severe sepsis shock status: without septic shock Qualified Code(s): A41.9 - Sepsis, unspecified organism; R65.20 - Severe sepsis without septic shock; G93.41 - Metabolic encephalopathy (7) Cirrhosis Ascites presence: with ascites Hepatic cirrhosis type: unspecified hepatic cirrhosis Qualified Code(s): K74.60 - Unspecified cirrhosis of liver; R18.8 - Other ascites (12) Hyperlipidemia Hyperlipidemia type: mixed hyperlipidemia Qualified Code(s): E78.2 - Mixed hyperlipidemia
[2024-05-11] MEDS: CHOLESTYRAMINE LIGHT 4 GM PKT PO SCH (15:02)
--- NOTE | 2024-05-11 16:28 | Nephrology Progress Note ---
Date of Service May 11, 2024 Assessment & Plan (1) ESRD (end stage renal disease) on dialysis: Plan: currently getting [facility] hemodialysis Monday. No significant electrolyte problem. patient tolerated dialysis well yesterday. Electrolytes are stable and no signs of volume overload. No indication for dialysis today. Next dialysis will be Monday. From renal standpoint patient can be discharged (2) Multiple myeloma without remission: Plan: currently getting chemotherapy -cyclophosphamide 150 mg/m every weekly by mouth (50% dose reduction because of ongoing hemodialysis ) ,Velcade 1.3 mg/m every weekly, Darzalex Faspro every weekly for 8 weeks followed by every 2 weekly for additional x 8 doses and then every 4 weekly and Decadron 40 mg every weekly ( p.o. ). Admission and Anticipated Discharge Date Admission Date: May 05, 2024 Subjective seen for ESRD. He feels fine. No shortness of breath. He had dialysis yesterday Review of Systems 2 Review of Systems: All other systems were reviewed and negative except as noted in HPI Physical Exam 2 Physical Exam: General exam: Appears comfortable, no acute distress HEENT: Pupils are equal and reactive to light Neck: No JVD, neck is supple trachea is midline Respiratory system: Clear breath sounds bilaterally. Gastrointestinal: Abdomen is soft, non distended, non tender, bowel sounds are present CVS: Regular rate and rhythm. No murmurs, rubs or gallops Musculoskeletal: No joint or muscle tenderness Extremities: Non tender, no edema, peripheral pulses are present Neuro: Oriented, no tremors, no focal neurological deficits Skin: No rashes Results & Data Vital Signs (Past 12 Hours) Vital Signs Temp Pulse Resp BP Pulse Ox O2 Del Method 05/11/24 12:05 36.5 C 69 18 100/51 L 95 Room Air 05/11/24 07:16 36.9 C 69 19 135/62 98 Room Air Laboratory Results 05/11/24 05:45 05/11/24 05:45 WBC 11.93 H RBC 3.20 L MCV 96.6 MCH 31.3 MCHC 32.4 RDW Std Deviation 61.8 H RDW Coeff of Vince 17.8 H Plt Count 470 H MPV 10.3
--- NOTE | 2024-05-12 01:33 | Communication Note ---
Date of Service: May 12, 2024 Notified by RN of 40 cc output through alcaraz and bladder scan reading of 794. Patient comfortable as per RN. AP Abnormal bladder scan Ascites on imaging Dedicated bladder ultrasound
--- NOTE | 2024-05-12 02:26 | Ultrasound Report ---
EXAM: US retro bladder ltd CLINICAL HISTORY: Residual after catheter placement. TECHNIQUE: An ultrasound examination of the retroperitoneum limited/urinary bladder is performed in real-time and duplex. COMPARISON: US dated 03/15/2024. FINDINGS: Residual urine in the urinary bladder after catheter placement as mentioned in the notes The urinary bladder is partially filled with folly's blub is seen in place. Urine volume within the urinary bladder measures 2.8 x 5.9 x 5.1 cm with a volume of 44.2 ml. No calculus or mass is identified. Mild ascites were noted adjacent to the urinary bladder. IMPRESSION: 1. Mild ascites were noted adjacent to the urinary bladder. 2. The urinary bladder is partially filled (44.2 ml) with a folly's blub seen in place. 3. The previous scan shows no ultrasound images of the urinary bladder However ascites were noted previously. 4. CT scan abdomen is advised if clinically indicated. Electronically signed by Ethan Parmar 05-12-2024 02:25 AM
[2024-05-12 06:49] LABS: BUN Creatinine Ratio 9.4 (10-20); Calcium 7.2 mg/dl (8.6-10.3); Creatinine Clr Calc Pharmacy 15.6 ml/min; Magnesium 1.7 mg/dl (1.7-2.4); Phosphorus 5.8 mg/dl (2.5-4.9); Potassium 3.2 mmol/L (3.5-5.1)
[2024-05-12] MEDS: LOPERAMIDE HCL 2 MG CAP PO PRN (07:53)
[2024-05-12 11:45] LABS: INR 2.7 (0.9-1.1); Prothrombin Time 27.2 Seconds (9.0-12.0)
--- NOTE | 2024-05-12 14:49 | Hospitalist Progress Note ---
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 Altered mental status, possibly metabolic encephalopathy Possible sepsis POA-ruled out AL Amyloidosis on chemotherapy Patient presented with altered mental status and tremors for 3 days; reported to have started on 05/03/2024. Patient had first session of chemotherapy on 05/02/2024 for palliative intent only. Leukocytosis present on admission; seems chronic from 03/2024 Admitting Urinalysis not suggestive of infection Respiratory viral panel negative CTA chest shows small volume PE with no evidence of right heart strain. No previous CTA chest to rule out previous history of PE; patient was recently started on Coumadin. Findings were discussed by prior attending with patient on 05/06/2023; CTA abdomen showed ascites; no source of sepsis Prior attending discussed with Dr. Dyson from oncology on 05/06/2024 whether chemotherapeutic drugs contributed to patient's confusion or not; it is a possibility as per him; mentation is expected to improve in next few days if the source is due to chemotherapy agents. Infectious work up negative so far. Patient's mentation is gradually improving and is getting closer to baseline. Neurology evaluated 05/07, appreciate recommendation. Prior attending discussed with patient's inability to undergo MRI brain and patient does not want LP. Patient's does not want palliative care consult as well.Patient's does not want him to get acyclovir which has been discontinued. Await EEG, continue delirium precaution. ID evaluated 05/08, DC antibiotic, monitor off antibiotic. Pus noted during alcaraz care, admitting UA neg for UTI, change alcaraz 05/08 was ordered, fu UA 05/09 and UCx. DC atb per ID recs, c/t monitor. No deterioration in mentation observed off of antibiotic. Loose stool: neg for c diff, stool pcr neg. c/w probiotic, psyllium, add loperamide and questran. follow. Pt not belly pain or tenderness. Left AKA stump site bleeding: Noted overnight of 05/08 - 05/09. General surgery evaluated, compression bandage applied, bleeding controlled. HnH stable. ESRD on hemodialysis-nephrology consulted for comanagement, Dialysis on MWF Elevated high sensitive troponin in setting of ESRD -troponins elevated to 60s with flat trend. Monitor on telemetry; no complaint of chest pain Cirrhosisascites on CT abdomen/pelvis present. Burergers disease- continue on aspirin. Full code DVT prophylaxis coumadin PT/OT, CM to assist with DC planning. likely should be able to dc in 1-2 days. PT/OT recommends rehab. Patient's Bina was updated over the phone 05/10 and 05/11, answered all her questions. She wanted PT/OT to eval him and would like to see if she can take him home versus he needs rehab. Admission and Anticipated Discharge Date Admission Date: May 05, 2024 Subjective Patient seen and examined at bedside. He is awake, oriented to self and year and place today. ROS not Able due to cognition status. but he denies pain. Per RN He had 1 loose stool yesterday and 1 overnight, frequency of loose stool improving. Patient had 7 beat of asymptomatic V. tach around 1300 today, will replace with 20 mEq potassium and 2 g IV magnesium. Physical Exam Physical Exam: Constitutional: Awake, oriented to self. Respiratory: Bilateral vesicular breath sound. Cardiovascular: RRR, no murmur, no edema Vessels: no JVD or carotid bruit Chest: normal inspection of chest Abdomen: Soft, nontender. Musculoskeletal: left lega AKA Skin: no rashes, warm and dry normal turgor Neurologic: Grossly moves all extremities. Alcaraz catheter in situ, light yellow urine collection noted in the bag. Results & Data Results & Data Vital Signs (Past 12 Hours) Vital Signs Temp Pulse Resp BP Pulse Ox O2 Del Method 05/12/24 11:18 36.6 C 68 18 106/59 L 96 Room Air 05/12/24 07:07 36.7 C 69 18 140/65 96 Room Air 05/12/24 03:30 36.7 C 71 18 136/69 96 Room Air (3) Sepsis Sepsis type: sepsis due to unspecified organism Sepsis acute organ dysfunction status: with acute organ dysfunction Severe sepsis acute organ dysfunction type: encephalopathy Severe sepsis shock status: without septic shock Qualified Code(s): A41.9 - Sepsis, unspecified organism; R65.20 - Severe sepsis without septic shock; G93.41 - Metabolic encephalopathy (7) Cirrhosis Ascites presence: with ascites Hepatic cirrhosis type: unspecified hepatic cirrhosis Qualified Code(s): K74.60 - Unspecified cirrhosis of liver; R18.8 - Other ascites (12) Hyperlipidemia Hyperlipidemia type: mixed hyperlipidemia Qualified Code(s): E78.2 - Mixed hyperlipidemia
[2024-05-12] MEDS: POTASSIUM CHLORIDE CRTAB 20 MEQ TABCR PO STA (14:53)
[2024-05-12] MEDS: MAGNESIUM SULFATE / D5W 1 GM/100 ML BAG IV SCH (14:54)
--- NOTE | 2024-05-12 15:18 | Nephrology Progress Note ---
Date of Service May 12, 2024 Assessment & Plan (1) ESRD (end stage renal disease) on dialysis: Plan: currently getting [facility] hemodialysis Monday. Potassium is low. Last dialysis was on Monday. Will dialyze him tomorrow on a 4K bath. From renal standpoint patient can be discharged (2) Multiple myeloma without remission: Plan: currently getting chemotherapy -cyclophosphamide 150 mg/m every weekly by mouth (50% dose reduction because of ongoing hemodialysis ) ,Velcade 1.3 mg/m every weekly, Darzalex Faspro every weekly for 8 weeks followed by every 2 weekly for additional x 8 doses and then every 4 weekly and Decadron 40 mg every weekly ( p.o. ). Admission and Anticipated Discharge Date Admission Date: May 05, 2024 Subjective seen for ESRD. No shortness of breath or leg swelling. Complains of weakness. Review of Systems 2 Review of Systems: All other systems were reviewed and negative except as noted in HPI Physical Exam 2 Physical Exam: General exam: Appears comfortable, no acute distress HEENT: Pupils are equal and reactive to light Neck: No JVD, neck is supple trachea is midline Respiratory system: Clear breath sounds bilaterally. Gastrointestinal: Abdomen is soft, non distended, non tender, bowel sounds are present CVS: Regular rate and rhythm. No murmurs, rubs or gallops Musculoskeletal: No joint or muscle tenderness Extremities: Non tender, no edema, peripheral pulses are present Neuro: Oriented, no tremors, no focal neurological deficits Skin: No rashes Results & Data Vital Signs (Past 12 Hours) Vital Signs Temp Pulse Resp BP Pulse Ox O2 Del Method 05/12/24 11:18 36.6 C 68 18 106/59 L 96 Room Air 05/12/24 07:07 36.7 C 69 18 140/65 96 Room Air 05/12/24 03:30 36.7 C 71 18 136/69 96 Room Air Laboratory Results 05/12/24 05:31 05/12/24 05:31 Phosphorus 5.8 H
[2024-05-13 03:27] VITALS: O2SAT 95
--- NOTE | 2024-05-13 06:21 | Electroencephalogram ---
EEG Procedure Note Date of Service May 08, 2024 Start / End Times Start Time: 612 End Time: [address] Jessica Reyes History A 74 year old male encephalopathy. EEG performed for evaluation of epileptiform activity. Home Medication List Medication Instructions Recorded Confirmed Type midodrine 10 mg tablet 10 mg PO TID #60 tabs 02/04/24 05/05/24 Rx finasteride 5 mg tablet 5 mg PO DAILY 03/13/24 05/05/24 History latanoprost 0.005 % eye drops 1 drp OPB DAILY 03/13/24 05/05/24 History Demadex 100 mg PO .QPM/UD 05/05/24 05/05/24 History aspirin 81 mg tablet,delayed 81 mg PO QAM 05/05/24 05/05/24 History release oxycodone 5 mg tablet 5 mg PO HS PRN Pain 05/05/24 05/05/24 History warfarin 2.5 mg tablet 2.5 mg PO UD 05/05/24 05/05/24 History warfarin 5 mg tablet 5 mg PO .QPM/UD 05/05/24 05/05/24 History Inpatient Medication List Acetaminophen (Acetaminophen 500 Mg Tab) 500 mg PO Q6 PRN PRN Reason: pain Stop: 06/04/24 20:41 Last Admin: 05/08/24 18:17 Dose: 500 mg Documented By: Admin: 05/08/24 10:37 Dose: 500 mg Documented By: Admin: 05/08/24 01:36 Dose: 500 mg Documented By: Admin: 05/07/24 15:08 Dose: 500 mg Documented By: PK Aspirin (Aspirin 81 Mg Ectab) [facility] Stop: 06/09/24 08:59 Last Admin: 05/12/24 07:47 Dose: 81 mg Documented By: Admin: 05/11/24 08:22 Dose: 81 mg Documented By: Admin: 05/10/24 14:17 Dose: 81 mg Documented By: STEVEN Cholestyramine Resin (Cholestyramine Light 4 Gm Pkt) 4 gm PO BID@1000,2200 [facility] Stop: 06/10/24 14:29 Last Admin: 05/12/24 21:30 Dose: 4 gm Documented By: Admin: 05/12/24 12:04 Dose: 4 gm Documented By: Admin: 05/11/24 20:53 Dose: 4 gm Documented By: Admin: 05/11/24 15:02 Dose: 4 gm Documented By: JOHN Finasteride (Finasteride 5 Mg Tab) 5 mg PO DAILY MICHELLE Stop: 06/10/24 08:59 Last Admin: 05/12/24 07:45 Dose: 5 mg Documented By: Admin: 05/11/24 08:22 Dose: 5 mg Documented By: JOHN Folic Acid (Folic Acid 1 Mg Tab) 1 mg PO QAM MICHELLE Stop: 06/05/24 08:59 Last Admin: 05/12/24 07:47 Dose: 1 mg Documented By: Admin: 05/11/24 08:23 Dose: 1 mg Documented By: Admin: 05/10/24 08:52 Dose: 1 mg Documented By: Admin: 05/09/24 08:14 Dose: 1 mg Documented By: Admin: 05/08/24 08:18 Dose: 1 mg Documented By: Admin: 05/07/24 08:17 Dose: 1 mg Documented By: Admin: 05/06/24 08:01 Dose: 1 mg Documented By: KTS Lactobacillus Acidophilus (Advanced Probiotic 625 Mg Capsule) 1,250 mg PO DAILY MICHELLE Stop: 06/07/24 16:14 Last Admin: 05/12/24 07:45 Dose: 1,250 mg Documented By: Admin: 05/11/24 08:22 Dose: 1,250 mg Documented By: Admin: 05/10/24 08:52 Dose: 1,250 mg Documented By: Admin: 05/09/24 08:14 Dose: 1,250 mg Documented By: Admin: 05/08/24 17:23 Dose: 1,250 mg Documented By: PK Latanoprost (Latanoprost 0.005% Op Soln 2.5 Ml Btl) 1 drops OPB DAILY MICHELLE Stop: 06/09/24 08:59 Last Admin: 05/12/24 07:47 Dose: 1 drops Documented By: Admin: 05/11/24 08:23 Dose: 1 drops Documented By: Admin: 05/10/24 14:18 Dose: 1 drops Documented By: STEVEN Loperamide HCl (Loperamide Hcl 2 Mg Cap) 2 mg PO Q3H PRN PRN Reason: Diarrhea Stop: 06/10/24 10:12 Last Admin: 05/12/24 07:53 Dose: 2 mg Documented By: JOHN Midodrine (Midodrine Hcl 10 Mg Tab) 10 mg PO TID@0800,1400,1800 MICHELLE Stop: 06/04/24 21:11 Last Admin: 05/12/24 17:18 Dose: 10 mg Documented By: Admin: 05/12/24 14:11 Dose: 10 mg Documented By: Admin: 05/12/24 07:46 Dose: 10 mg Documented By: Admin: 05/11/24 17:31 Dose: 10 mg Documented By: Admin: 05/11/24 14:11 Dose: 10 mg Documented By: Admin: 05/11/24 08:22 Dose: 10 mg Documented By: Admin: 05/10/24 17:20 Dose: 10 mg Documented By: Admin: 05/10/24 14:18 Dose: 10 mg Documented By: Admin: 05/10/24 08:51 Dose: 10 mg Documented By: Admin: 05/09/24 17:11 Dose: 10 mg Documented By: Admin: 05/09/24 15:13 Dose: 10 mg Documented By: Admin: 05/09/24 08:14 Dose: 10 mg Documented By: Admin: 05/08/24 17:23 Dose: 10 mg Documented By: Admin: 05/08/24 14:59 Dose: 10 mg Documented By: Admin: 05/08/24 08:18 Dose: 10 mg Documented By: Admin: 05/07/24 17:41 Dose: 10 mg Documented By: Admin: 05/07/24 13:18 Dose: 10 mg Documented By: Admin: 05/07/24 08:17 Dose: 10 mg Documented By: Admin: 05/06/24 16:44 Dose: 10 mg Documented By: Admin: 05/06/24 13:56 Dose: 10 mg Documented By: Admin: 05/06/24 08:01 Dose: 10 mg Documented By: Admin: 05/05/24 22:25 Dose: 10 mg Documented By: GCC Nystatin (Nystatin Susp 500,000 U/5 Ml Udc) 5 ml PO QID MICHELLE Stop: 05/16/24 08:59 Last Admin: 05/12/24 21:30 Dose: 5 ml Documented By: Admin: 05/12/24 16:31 Dose: 5 ml Documented By: Admin: 05/12/24 14:11 Dose: 5 ml Documented By: Admin: 05/12/24 07:47 Dose: 5 ml Documented By: Admin: 05/11/24 20:53 Dose: 5 ml Documented By: Admin: 05/11/24 17:31 Dose: 5 ml Documented By: Admin: 05/11/24 14:11 Dose: 5 ml Documented By: Admin: 05/11/24 08:24 Dose: 5 ml Documented By: Admin: 05/10/24 20:24 Dose: Not Given Documented By: Admin: 05/10/24 17:20 Dose: 5 ml Documented By: Admin: 05/10/24 14:17 Dose: 5 ml Documented By: Admin: 05/10/24 08:53 Dose: 5 ml Documented By: Admin: 05/09/24 20:18 Dose: 5 ml Documented By: Admin: 05/09/24 17:11 Dose: 5 ml Documented By: Admin: 05/09/24 12:48 Dose: 5 ml Documented By: Admin: 05/09/24 08:14 Dose: 5 ml Documented By: Admin: 05/08/24 20:09 Dose: 5 ml Documented By: Admin: 05/08/24 17:23 Dose: 5 ml Documented By: Admin: 05/08/24 12:14 Dose: 5 ml Documented By: Admin: 05/08/24 08:17 Dose: 5 ml Documented By: Admin: 05/07/24 20:04 Dose: 5 ml Documented By: Admin: 05/07/24 17:41 Dose: 5 ml Documented By: Admin: 05/07/24 12:18 Dose: Not Given Documented By: Admin: 05/07/24 08:17 Dose: 5 ml Documented By: Admin: 05/06/24 20:01 Dose: 5 ml Documented By: Admin: 05/06/24 16:44 Dose: 5 ml Documented By: Admin: 05/06/24 13:55 Dose: 5 ml Documented By: Admin: 05/06/24 08:02 Dose: 5 ml Documented By: GURVINDER Psyllium Hydrophilic Mucilloid (Psyllium Or Guar Gum Fiber 4gm Packet) 4 gm PO QAM MICHELLE Stop: 06/07/24 16:14 Last Admin: 05/12/24 07:45 Dose: 4 gm Documented By: Admin: 05/11/24 08:24 Dose: 4 gm Documented By: Admin: 05/10/24 08:53 Dose: 4 gm Documented By: Admin: 05/09/24 08:14 Dose: 4 gm Documented By: Admin: 05/08/24 17:23 Dose: 4 gm Documented By: ELOY Thiamine HCl (Thiamine Hcl 100 Mg Tab) 100 [facility] [place] [facility] Stop: 06/05/24 08:59 Last Admin: 05/12/24 07:47 Dose: 100 mg Documented By: Admin: 05/11/24 08:22 Dose: 100 mg Documented By: Admin: 05/07/24 08:17 Dose: 100 mg Documented By: Admin: 05/06/24 08:01 Dose: 100 mg Documented By: KTS Warfarin Sodium (Warfarin Sod 5 Mg Tab) 5 mg PO DAILY@1600 MICHELLE Stop: 06/05/24 15:59 Last Admin: 05/12/24 15:00 Dose: 5 mg Documented By: Admin: 05/11/24 15:03 Dose: 5 mg Documented By: Admin: 05/10/24 17:20 Dose: 5 mg Documented By: Admin: 05/09/24 15:14 Dose: 5 mg Documented By: Admin: 05/08/24 15:00 Dose: 5 mg Documented By: Admin: 05/07/24 15:08 Dose: 5 mg Documented By: Admin: 05/06/24 16:44 Dose: 5 mg Documented By: GURVINDER Discontinued Medications Acyclovir (Acyclovir 400 Mg Tab) 400 mg PO BID MICHELLE Stop: 06/04/24 21:11 Last Admin: 05/06/24 08:01 Dose: 400 mg Documented By: Admin: 05/05/24 22:24 Dose: 400 mg Documented By: EMMETT Sodium Chloride (Nss) 1,000 mls @ 125 mls/hr IV .Q8H MICHELLE Stop: 05/06/24 16:59 Last Infusion: 01/06/25 06:03 Dose: Infused Documented By: Infusion: 05/05/24 17:29 Dose: 75 mls/hr Documented By: Admin: 05/05/24 17:28 Dose: 125 mls/hr Documented By: JOAN Vancomycin HCl 1,750 mg/ (Sodium Chloride) 535 mls @ 200 mls/hr IV NOW ONE Stop: 05/05/24 20:03 Last Infusion: 05/05/24 20:41 Dose: Infused Documented By: Admin: 05/05/24 18:00 Dose: 200 mls/hr Documented By: JOAN Cefepime HCl (Maxipime 2000mg) 2,000 mg in 20 mls @ 5 mls/min IV NOW STA; Protocol Stop: 05/05/24 17:26 Last Admin: 05/05/24 17:28 Dose: 5 mls/min Documented By: JOAN Cefepime HCl (Maxipime 2000mg) 1,000 mg in 10 mls @ 5 mls/min IV Q12H MICHELLE; Protocol Stop: 05/08/24 05:59 Last Admin: 05/06/24 05:57 Dose: 5 mls/min Documented By: MARQUISE Piperacillin Sod/Tazobactam Sod (Zosyn) 4.5 gm in 100 mls @ 25 mls/hr IV Q12H MICHELLE; Protocol Stop: 05/11/24 23:59 Last Infusion: 05/08/24 12:15 Dose: Infused Documented By: Admin: 05/08/24 08:17 Dose: 25 mls/hr Documented By: Infusion: 05/08/24 00:02 Dose: Infused Documented By: Admin: 05/07/24 20:04 Dose: 25 mls/hr Documented By: Infusion: 05/07/24 16:48 Dose: Infused Documented By: Admin: 05/07/24 13:18 Dose: 25 mls/hr Documented By: Infusion: 05/06/24 23:42 Dose: Infused Documented By: Admin: 05/06/24 20:00 Dose: 25 mls/hr Documented By: SKS Piperacillin Sod/Tazobactam Sod (Zosyn) 4.5 gm in 100 mls @ 200 mls/hr IV ONE ONE; Protocol Stop: 05/06/24 11:44 Last Infusion: 05/06/24 12:17 Dose: Infused Documented By: Admin: 05/06/24 11:47 Dose: 200 mls/hr Documented By: KTS Vancomycin HCl 750 mg/ Sodium (Chloride) 265 mls @ 200 mls/hr IV 1400 ONE Stop: 05/06/24 15:19 Last Infusion: 05/06/24 15:38 Dose: Infused Documented By: Admin: 05/06/24 14:12 Dose: 200 mls/hr Documented By: KTS Vancomycin HCl (Vancomycin Hcl) 1,000 mg in 270 mls @ 200 mls/hr IV TODAY@1600 ONE Stop: 05/07/24 17:20 Last Infusion: 05/07/24 18:24 Dose: Infused Documented By: Admin: 05/07/24 16:36 Dose: 200 mls/hr Documented By: ELOY Thiamine HCl 200 mg/ Sodium (Chloride) 52 mls @ 210 mls/hr IV Q8H MICHELLE Stop: 05/09/24 14:29 Last Infusion: 05/09/24 05:50 Dose: Infused Documented By: Admin: 05/09/24 05:30 Dose: 210 mls/hr Documented By: Infusion: 05/08/24 21:47 Dose: Infused Documented By: Admin: 05/08/24 21:31 Dose: 210 mls/hr Documented By: Infusion: 05/08/24 15:43 Dose: Infused Documented By: Admin: 05/08/24 15:00 Dose: 210 mls/hr Documented By: Infusion: 05/08/24 05:45 Dose: Infused Documented By: Admin: 05/08/24 05:26 Dose: 210 mls/hr Documented By: Infusion: 05/07/24 20:22 Dose: Infused Documented By: Admin: 05/07/24 20:05 Dose: 210 mls/hr Documented By: Infusion: 05/07/24 16:48 Dose: Infused Documented By: Admin: 05/07/24 15:54 Dose: 210 mls/hr Documented By: ELOY Magnesium Sulfate/Dextrose (Magnesium Sulfate / D5w) 1 gm in 100 mls @ 50 mls/hr IV Q2H MICHELLE Stop: 05/12/24 18:29 Last Infusion: 05/12/24 18:21 Dose: Infused Documented By: Admin: 05/12/24 16:31 Dose: 50 mls/hr Documented By: Infusion: 05/12/24 16:31 Dose: Infused Documented By: Admin: 05/12/24 14:54 Dose: 50 mls/hr Documented By: JOHN Ioversol (Optiray 320 100ml) 93 ml IV ONCE ONE Stop: 05/06/24 10:59 Last Admin: 05/06/24 11:00 Dose: 93 ml Documented By: BRM Loperamide HCl (Loperamide Hcl 2 Mg Cap) 2 mg PO NOW PRN PRN Reason: Diarrhea Stop: 06/10/24 10:12 Last Admin: 05/11/24 10:37 Dose: 2 mg Documented By: JOHN Nystatin (Nystatin Susp 500,000 U/5 Ml Udc) 10 ml PO NOW STA Stop: 05/06/24 00:48 Last Admin: 05/06/24 01:32 Dose: 10 ml Documented By: MARQUISE Potassium Chloride (Potassium Chloride Crtab 20 Meq Tabcr) 20 meq PO NOW STA Stop: 05/12/24 14:47 Last Admin: 05/12/24 14:53 Dose: 20 meq Documented By: JOHN Silver Nitrate/Potassium Nitrate (Silver Nitr/Potassium Nitrate Applicator) 1 appl EXT ONCE ONE Stop: 05/09/24 03:12 Last Admin: 05/09/24 03:42 Dose: 1 appl Documented By: SKS Warfarin Sodium (Warfarin Sod 2 Mg Tab) 2 mg PO NOW ONE Stop: 05/08/24 08:59 Last Admin: 05/08/24 10:04 Dose: 2 mg Documented By: PK Description This is a 21 electrode EEG with a single channel dedicated to limited EKG. The electrodes were placed in accordance with the International 10-20 system. REPORT: At the onset of the EEG the patient is awake. The background is disorganized with loss of the normal anterior to posterior gradient w background consisting of mostly theta activity more prominent on the left. The background appears asymmetric with some suppressed focal slowing on the right. Interpretation IMPRESSION: This is an abnormal awake routine EEG in a patient with altered mentation due to 1. Generalized slowing suggestive of non specific encephalopathy , 2. Focal slowing on the right suggestive of underlying structural abnormality or neuronal dysfunction. No epileptiform discharges are noted.
[2024-05-13 08:16] VITALS: RESP 18
[2024-05-13 09:37] LABS: BUN Creatinine Ratio 9.6 (10-20); Calcium 7.5 mg/dl (8.6-10.3); Creatinine Clr Calc Pharmacy 12.3 ml/min; Potassium 3.7 mmol/L (3.5-5.1)
[2024-05-13 09:41] LABS: Prothrombin Time 29.5 Seconds (9.0-12.0)
[2024-05-13 10:21] VITALS: TEMP 97.7
[2024-05-13] MEDS: OPTIRAY 320 100ml IV ONE (13:23)
[2024-05-13] MEDS: HEPARIN SOD (PORCINE) 1000 UNIT/ML IV SCH ×2 (13:30→13:31)
--- NOTE | 2024-05-13 13:31 | Nephrology Progress Note ---
Date of Service May 13, 2024 Assessment & Plan (1) ESRD (end stage renal disease) on dialysis: Plan: currently getting [facility] hemodialysis Monday. potassium in 3's. had HD on 4K bath today; no issues on HD From renal standpoint patient can be discharged w/ next OP HD on 05/15 He wants to have alcaraz removed > see below care coordinated w/ Dr Vipul ellis EEG, timing of next HD, alcaraz catheter dispo via TText; we are in agreement >>>no need for nephro CKD clinic follow up since we will see him at dialysis (2) Multiple myeloma without remission: Plan: > had been on CTX prior to admission; pt asking about resuming this today > explained he'll need to f/u w/ Dr Dyson as OP to discusse next steps Had been on cyclophosphamide 150 mg/m every weekly by mouth (50% dose reduction because of ongoing hemodialysis ) ,Velcade 1.3 mg/m every weekly, Darzalex Faspro every weekly for 8 weeks followed by every 2 weekly for additional x 8 doses and then every 4 weekly and Decadron 40 mg every weekly ( p.o. ). 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 for head CT to f/u abnormal EEG. tolerated HD well w/ 2L UF today; continues w/ 200-725 mL daily UOP; ongoing phantom L limb pain. no sob, no n/v; MS much clearer today than admission; still foggy on some detaiils Review of Systems 2 Review of Systems: All systems reviewed & are unremarkable except as noted in Subjective Physical Exam 2 Constitutional: well developed and well nourished Eyes: EOM intact bilaterally ENMT: Mouth: + dry oral mucous membranes Respiratory: normal respiratory effort Auscultation: + diminished lung sounds Gastrointestinal (Abdomen): Inspection/Auscultation: normal bowel sounds P ercussion/Palpation: abdomen soft; abdomen nontender + fluid wave Musculoskeletal: Extremities: strength 5/5 throughout L AKA stump c/d/i Skin: no rashes, warm and dry Neurologic: mendez, fluent speech, no tremor Results & Data Vital Signs (Past 12 Hours) Vital Signs Temp Pulse Pulse Resp BP BP Pulse Ox 05/13/24 12:00 76 112/62 05/13/24 11:30 75 107/63 05/13/24 11:15 71 05/13/24 11:00 75 95/58 L 05/13/24 10:30 74 84/59 L 05/13/24 10:00 51 L 106/70 05/13/24 09:30 66 120/64 05/13/24 09:10 64 111/57 L 05/13/24 09:06 36.5 C 68 05/13/24 07:59 37.0 C 70 18 108/53 L 95 05/13/24 03:25 36.6 C 61 16 138/64 95 O2 Del Method 05/13/24 12:00 05/13/24 11:30 05/13/24 11:15 05/13/24 11:00 05/13/24 10:30 05/13/24 10:00 05/13/24 09:30 05/13/24 09:10 05/13/24 09:06 05/13/24 07:59 Room Air 05/13/24 03:25 Room Air Laboratory Results 05/11/24 05:45 05/13/24 08:51
[2024-05-13 13:44] VITALS: BP 116/54
--- NOTE | 2024-05-13 13:53 | CT Scan Report ---
CT head/brain wo/w con CLINICAL HISTORY: 74 years-old Male with abnormal EEG. Acutely altered mental status TECHNIQUE: Multiple axial CT images of the head were obtained with and without IV contrast. A dose l owering technique was utilized adhering to the principles of ALARA. CT DOSE: 1279.87 mGy.cm COMPARISON: 05/07/2024 FINDINGS: No acute intracranial hemorrhage, midline shift, intracranial mass, hydrocephalus, territorial ischem ia or abnormal extra-axial collection. No abnormal enhancement. The calvarium is intact. The paranasal sinuses, mastoid air cells, and middle ear cavities are clear . IMPRESSION: 1. No acute intracranial abnormality. 2. No abnormal enhancement. ACT 112: Negative or not required by law. The above report was generated using voice recognition software. It may contain grammatical, syntax o r spelling errors. Electronically signed by: Trevon Veliz M.D. 05/13/2024 1:51 PM
--- NOTE | 2024-05-13 15:03 | Discharge Summary ---
Date of Service May 13, 2024 Admission HPI Per Admitting Provider 74-year-old male with past medical history of IgG kappa multiple myeloma, ESRD, peripheral vascular disease, cirrhosis, Burger's disease, BPH, AL light chain amyloidosis, left knee amputation, history of pulmonary embolism, tobacco use, hyperlipidemia, hypertension who presents for confusion. Collateral provided by and friend. Patient did not participate in gathering of history. states that he received chemotherapy for his multiple myeloma on . On Monday and Monday he showed signs of fatigue and weakness. Today, he became confused more fatigued and weak than normal. His states that he is quite sick at baseline and this is worse since she has seen him. states patient has not expressed signs of chest pain, shortness of shortness of breath, other associated symptoms. Denies any noted neck stiffness. Long discussion regarding CODE STATUS. is unsure on what to do at this time and they would like full code for now. Is open to further discussions regarding CODE STATUS and goals of care as disease progresses. Is open to palliative care consult at discharge For assistance with controlling symptoms. History of prior tobacco use, social alcohol use. Admission Exam Per Admitting Provider Gen: A&O 2 NAD HEENT: NCAT, EOMI, not icteric. External ears normal. No rhinorrhea. Moist mu cous membranes. Neck: Supple, full range of motion, no observable masses, No meningeal sign. No tenderness to palpation or movement Lungs: No Respiratory distress. CV: RRR, no edema. Abdomen: Soft, nondistended, No rebound tenderness. MSK: No joint swelling, no redness. Noted left leg amputation, no tenderness to palpation Skin: No rashes, petechiae, lesions. Normal color per patient. Neuro: moving all 4 extremtieis Psych: quite altered, appears delirius Principal Diagnosis Altered mental status, possibly metabolic encephalopathy Possible sepsis POA-ruled out AL Amyloidosis on chemotherapy Loose stool, likely viral AGE, resolved. Discharge Exam Constitutional: Awake, oriented x3. Respiratory: Bilateral vesicular breath sound. Cardiovascular: RRR, no murmur, no edema Vessels: no JVD or carotid bruit Chest: normal inspection of chest Abdomen: Soft, nontender. Musculoskeletal: left lega AKA Skin: no rashes, warm and dry normal turgor Neurologic: Grossly moves all extremities. Alcaraz catheter in situ, light yellow urine collection noted in the bag. Discharge Data Allergies Allergy/AdvReac Type Severity Reaction Status Date / Time dorzolamide Allergy Severe eyes Verified 05/05/24 20:55 swollen azithromycin Allergy Intermediate Rash Verified 05/05/24 20:55 Consultations 05/05/24 19:02 ED Decision to Admit Stat 05/06/24 07:43 Consult Nephrology Routine 05/07/24 14:19 Consult Neurology Routine 05/07/24 19:56 Consult Infectious Diseases Routine Ordered Studies 05/05/24 17:34 CT head/brain wo con Stat 05/06/24 09:33 CT chest diagnostic w con Urgent 05/06/24 10:48 CT Abd and Pelvis [CT abd pelvis IV con only] Urgent 05/07/24 09:31 CT head/brain wo con Urgent 05/12/24 00:25 US retro bladder ltd Stat 05/13/24 10:39 CT head/brain wo/w con Routine Hospital Course (1) Acute metabolic encephalopathy: (2) Multiple myeloma without remission: (3) Sepsis: (4) Immunocompromised: (5) AL amyloidosis: (6) Myocardial injury: (7) Cirrhosis: (8) ESRD (end stage renal disease) on dialysis: (9) Buerger disease: (10) Amputation above knee: (11) Left leg pain: (12) Hyperlipidemia: Plan Patient is a 74-year-old male with past medical history of ESRD on hemodialysis, IgG kappa multiple myeloma, peripheral vascular disease, liver cirrhosis who was brought to the hospital with altered mental status for 3 days. Altered mental status, possibly metabolic encephalopathy Possible sepsis POA-ruled out AL Amyloidosis on chemotherapy Patient presented with altered mental status and tremors for 3 days; reported to have started on 05/03/2024. Patient had first session of chemotherapy on 05/02/2024 for palliative intent only. Leukocytosis present on admission; seems chronic from 03/2024 Admitting Urinalysis not suggestive of infection Respiratory viral panel negative CTA chest shows small volume PE with no evidence of right heart strain. No previous CTA chest to rule out previous history of PE; patient was recently started on Coumadin. Findings were discussed by prior attending with patient on 05/06/2023; CTA abdomen showed ascites; no source of sepsis Prior attending discussed with Dr. Dyson from oncology on 05/06/2024 whether chemotherapeutic drugs contributed to patient's confusion or not; it is a possibility as per him; mentation is expected to improve in next few days if the source is due to chemotherapy agents. Infectious work up negative so far. ID evaluated 05/08, antibiotic was discontinued, patient's mentation gradually/consistently improved. Patient's reports patient is back to his baseline mentation. EEG came back abnormal 05/13, discussed with neurology, obtained CT head with and without contrast which was negative for any acute finding, rediscussed with neurology and they are okay with discharge. Patient to follow-up with neurology upon discharge. On chronic Alcaraz: Patient and her advised to follow-up with urology in 1 week time of discharge for possible voiding trial and ongoing management/Alcaraz care. Pus noted during alcaraz care, admitting UA neg for UTI, change alcaraz 05/08 was ordered, fu UA 05/09 and UCx was neg. Loose stool, Likely viral gastroenteritis: neg for c diff, stool pcr neg. c/w probiotic, OTC psyllium, OTC loperamide. Loose stool seems to have resolved. Left AKA stump site bleeding: Noted overnight of 05/08 - 05/09. General surgery evaluated, compression bandage applied, bleeding controlled. HnH stable. ESRD on hemodialysis-nephrology consulted for comanagement, Dialysis on MWF Elevated high sensitive troponin in setting of ESRD -troponins elevated to 60s with flat trend. Monitor on telemetry; no complaint of chest pain Cirrhosisascites on CT abdomen/pelvis present. Burergers disease- continue on aspirin. Full code DVT prophylaxis coumadin PT/OT, CM to assist with DC planning. likely should be able to dc in 1-2 days. PT/OT recommends rehab. Patient's was given a phone call, she does not want him to go to rehab and would like him to go to home with home health. Following instructions were communicated to her prior to discharge. Patient is being discharged to home with home health with following instructions at the point of discharge: Follow-up with your primary care physician within a week time and likely you will need labs CBC/CMP/magnesium/phosphorus. You were evaluated by neurology for altered mental status, follow-up with neurology in 2 to 4 weeks time upon discharge. Meningitis was ruled out. You also were noted to have likely viral gastroenteritis, continue to take probiotic and funl-owr-xnoyava psyllium fibers daily to help with bowel movement. Can utilize jdzo-sde-yaxsjib Imodium for loose stools per machine trimmer's recommendation. As discussed at the bedside, follow-up with urology in 1 week time upon discharge for voiding trial and possible removal of Alcaraz catheter. Follow-up with Coumadin clinic in 3 to 5 days time upon discharge for ongoing management of your warfarin doses. Continue your dialysis as prior. Take your medications as prescribed. Please make sure that you are able to get your medications today by calling your pharmacy before you leave the hospital so that your treatment continuity is not broken. Home Health Attestation I certify that this patient is under my care and that I, or a physicians wet process assistant head miller working with me, had a face to-face encounter that meets the home health yqmq-pb-adpi encounter requirements with this patient. The encounter with the patient was in whole, or in part, for the following medi tony condition, which is the primary reason for home health care (list medical condition): I certify that, based on my findings, the following services are medically necessary home health services: My clinical findings support the need for the above services because: Home Safety Assessment Medication Compliance and Monitoring Effective of New Medications Oxygen Safety and Management PT Eval for Safety and Mobility PT Gait and Balance Training, Strengthening and Safety Skilled Nsg Assessment Skilled Nsg Assess Pt Illness, Disease and Sx Monitoring S/S to Report to Provider Teach on Disease Management and Interventions Vital Signs Weekly Labs Further, I certify that my clinical findings support that this patient is homebound (i.e. absences from home require considerable and taxing effort and are for medical reasons or faith services or infrequently or of short duration when for other reasons) because: Assistance of 1 Person for Ambulation/Activities Poor Endurance; SOB Minimal Exertion Supportive Aid - Walker Transportation Assistance/Unable to Leave Home Unassisted Certification for Home Health Services: Based on the above findings, I certify that this patient is confined to the home and needs intermittent shelter care, physical therapy and/or speech therapy or continues to need occupational therapy. The patient is under my care, and I have initiated the establishment of the plan of care. This patient will be followed by a physician who will periodically review the plan of care. Total Time Total Time Spent Total Time Spent (In Minutes): 35 Discharge Plan Discharge Items Patient Disposition: Home - Home Health Services Reason For Visit: CONFUSION Discharge Diagnosis: Altered mental status, possibly metabolic encephalopathy Possible sepsis POA-ruled out AL Amyloidosis on chemotherapy Loose stool, likely viral AGE, resolved. Activity: Resume your previous activity Non-emergency contact: Primary Care Provider Call non-emergency contact if: you have any medication questions and your symptoms worsen Follow-up/Referrals: Rahul Tucker MD [Primary Care Provider] - ( Date & Time 05/20/2024 11:00 AM Provider: Amina Bergman CRNP Department: Family [facility] ) Diet: Regular Diet Texture: Easy to Chew Addtl Attending Provider Instructions: Follow-up with your primary care physician within a week time and likely you will need labs CBC/CMP/magnesium/phosphorus. You were evaluated by neurology for altered mental status, follow-up with neurology in 2 to 4 weeks time upon discharge. Meningitis was ruled out. You also were noted to have likely viral gastroenteritis, continue to take probiotic and gpzc-lvw-cxiktsh psyllium fibers daily to help with bowel movement. Can utilize hbrs-scj-wyemtzz Imodium for loose stools per machine trimmer's recommendation. As discussed at the bedside, follow-up with urology in 1 week time upon discharge for voiding trial and possible removal of Alcaraz catheter. Follow-up with Coumadin clinic in 3 to 5 days time upon discharge for ongoing management of your warfarin doses. Continue your dialysis as prior. Take your medications as prescribed. Please make sure that you are able to get your medications today by calling your pharmacy before you leave the hospital so that your treatment continuity is not broken. Pending Studies at Discharge: No Stand-Alone Forms: My [facility] [employer] PTY, Smoking Cessation Medications and DC Order Prescriptions: New Advanced Probiotic 625 mg (10 billion cell) Capsule 1 cap PO DAILY 7 Days Qty: 7 0RF folic acid 1 mg Tablet 1 mg PO QAM Qty: 30 0RF thiamine HCl (vitamin B1) 100 mg Tablet 100 mg PO QAM Qty: 30 0RF Continued midodrine 10 mg tablet 10 mg PO TID Qty: 60 5RF Hold Instructions: until further recommendations oxycodone 5 mg tablet 5 mg PO HS PRN (Reason: Pain) aspirin [Aspir-81] 81 mg Tablet,Delayed Release (Dr/Ec) 81 mg PO QAM Demadex tablet 100 mg PO .QPM/UD Rx Instructions: 05/05/24 : SKIP THIS MED ON EACH EVENING BEFORE DIALYSIS. latanoprost 0.005 % Drops 1 drp OPB DAILY finasteride 5 mg Tablet 5 mg PO DAILY Changed warfarin 5 mg tablet 5 mg PO DAILY Qty: 30 0RF Rx Instructions: DIRECTED BY [facility] Discontinued warfarin 2.5 mg Tablet 2.5 mg PO UD Rx Instructions: DIRECTED BY [facility] Discharge Orders: Discharge Order (Routine); Ordered 05/13/24 Ordered By: Pearl Matthew Admission Data Admit Date/Time: 05/05/24 19:54 Attending Provider: Pearl Matthew Admit Provider: Kermit Gomez Primary Care Provider: Rahul Tucker Other Providers: Kermit Gomez; Darby Mayorga; Madi Persaud; Arvin Swann; Chrissy Ferraro; Erna Covarrubias; Wander Mari [facility]; Austin Mabry; Terrence Moore; Hilario Shannon; Brice Calderon I.; Antonio Anand II; Erna Santamaria; Benedicto Land; Meet Landeros; Mareclino Camara
[2024-05-13 15:44] VITALS: PULSE 66
--- NOTE | 2024-05-14 07:56 | Coding Query ---
CODING QUERY To promote full compliance with coding requirements relating to patient care, provider participation is requested in all cases of demi chef uncertainty. Please assist us with the question(s) below: Coding Question(s): The following documentation is present throughout the chart, including as a principal diagnosis at discharge: "Possible sepsis POA-ruled out" Could you please clarify the status of sepsis by placing an 'x' in the applicable parenthesis? Sepsis, POA ( ) Sepsis, ruled out (x ) Other, please specify ( ) Physician's Response(s): Thank you Elizabet Rai Principal Diagnosis: "that condition established after study, to be chiefly responsible for occasioning the admission of the patient to the hospital for care." Co-Existing Principal Diagnosis: "when two or more diagnoses equally meet the criteria for principal diagnosis as determined by the circumstances of admission, diagnostic work up, and/or therapy provided, and the Alphabetic Index, Tabular List, or another coding guideline does not provide sequencing direction, any one of the diagnoses may be sequenced first." "When the physician has documented what appears to be a current diagnosis in the body of the record, but has not included the diagnosis in the final diagnostic statement, the physician should be asked whether the diagnosis should be added." (Source Coding [facility] 2 QTR90. p3-4) GONZALEZ
== END 2024-05-13 16:18 | disposition home health service (06) | DRG 70 ==
LOC: ED 16:35 → SUATTDRO 19:54 → EDINP 19:54 → 2S 21:12

== ENCOUNTER 2024-05-31 11:48 | Inpatient (IN) ==
[2024-05-31 12:47] LABS: Basophils # (auto) 0.01 K/uL (0.00-0.20); Basophils % (auto) 0.2 %; Hemoglobin 10.7 g/dl (14.0-18.0); Immature Granulocytes # (auto) 0.03 K/uL (0.01-0.20); Immature Granulocytes % (auto) 0.7 %; Lymphocytes # (auto) 0.83 K/uL (1.20-3.40); Lymphocytes % (auto) 18.8 %; Mean Corpuscular Hemoglobin 31.9 pg (25.0-34.0); Mean Corpuscular Hgb Conc 33.4 g/dL (32.0-36.0); Mean Corpuscular Volume 95.5 fL (80.0-100.0); Mean Platelet Volume 12.4 fL (9.4-12.4); Monocytes % (auto) 22.6 %; Neutrophils # (auto) 2.55 K/uL (1.40-6.50); Neutrophils % (auto) 57.7 %; Nucleated RBC # (auto) 0.17 K/uL (0.00-0.12); Nucleated RBC % (auto) 3.8 %; Platelet Count 454 K/uL (130-400); RDW Coefficient of Variation 21.2 % (11.5-14.5); RDW Standard Deviation 71.1 fL (36.4-46.3); Red Blood Count 3.35 M/uL (4.70-6.10); White Blood Count 4.42 K/ul (4.8-10.8)
--- NOTE | 2024-05-31 12:54 | XRay Report ---
XR chest 1V portable CLINICAL HISTORY: Chest pain, nonspecific COMPARISON STUDY: 05/05/2024 FINDINGS: Stable right dialysis catheter. Stable mild cardiomegaly with mild pulmonary vascular conge stion. Inspiration is shallow. No effusion, consolidation, or pneumothorax. IMPRESSION: Stable exam. ACT 112: Negative or not required by law. Electronically signed by: Benjamin Gomez M.D. 05/31/2024 12:52 PM
[2024-05-31 13:01] LABS: Albumin Globulin Ratio 0.7 (0.9-2); BUN Creatinine Ratio 18.4 (10-20); Bilirubin,Total 0.3 mg/dl (0.2-1.0); Calcium 8.1 mg/dl (8.6-10.3); Creatinine Clr Calc Pharmacy 18.6 ml/min; Globulin 2.8 gm/dl (2.5-4.0); Potassium 3.4 mmol/L (3.5-5.1); Total Protein 4.8 gm/dl (6.0-8.3)
[2024-05-31 13:10] LABS: INR 1.9 (0.9-1.1); Partial Thromboplastin Ratio 1.6; Partial Thromboplastin Time 43 Seconds (21-31); Prothrombin Time 19.9 Seconds (9.0-12.0)
[2024-05-31 13:11] LABS: Troponin I High Sensitivity 98.4 pg/ml (0-20)
[2024-05-31 13:12] LABS: Anisocytosis Present; Dohle Bodies 2+; Polychromasia 1+; Target Cells 1+; Toxic Granulation 1+
--- NOTE | 2024-05-31 14:03 | Emergency Department Note ---
Impression & Plan Acute metabolic encephalopathy, Syncope, Acute dehydration ED Provider Note Name: BETY CUI Age: 74 Sex: Male Arrives Via: Ambulance Informant: Patient (poor historian), ED Provider: Saleem Tejada MD Chief Complaint: Syncope and weakness Impression: As per impressions above Medical Decision Making: Medically complicated 74-year-old male arrives for evaluation following acute altered mental status/syncope at dialysis this morning. Patient with multiple myeloma and has received a second dose of chemotherapy about a week ago. He has not been tolerating this well with worsening confusion following these and severe weakness. Was reportedly a bit dehydrated the other day at dialysis. Today symptoms occurred prior to initiating dialysis. On arrival patient does look a bit dehydrated he is somewhat encephalopathic. He has some bruising on his face and while on anticoagulant I did opt to get a CT scan of the head which is fortunately unremarkable. 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 At the moment does not require emergent dialysis. Hospitalist consulted for further management. At the moment I do not see any clear evidence of sepsis or infection at this point Triage/Nursing Notes reviewed by Me Differential:Infection, dehydration, metabolic abnormality, hypo/hyperglycemia, electrolyte disturbance, anemia, hypoxia, cardiac sources, intracerebral event, toxicologic, neurologic, as well as other pathologies. Vital Signs: reviewed and remarkable for no significant abnormalities Interventions: nss bolus 500ml IV Labs:ED labs Reviewed by me and remarkable for chronic findings Imaging:X ray results are stated below per my interpretation: Chest: 1 view: No infiltrate, no effusion, normal cardiac border. ct head, per my interpretation, no acute ich nor mass appreciated EKG: As per my interpretation. Indication altered mental status. Normal sinus rhythm at 70 bpm no ectopy no ischemia acute. Left anterior fascicular block. No significant change from May 05, 2024 EKG. Cardiac/Tele Monitoring: Cardiac Monitoring: An Order was placed for continuous cardiac monitoring. The monitor shows a rate of 70 with a normal sinus rhythm. Consults:Dr. Leigh of nephrology discussed case with her as well as discussed with hospitalist will bring in for further management. Plan: Disposition:Hospitalization. Condition: Good History of Present Illness: 74-year-old male arrives for evaluation of syncope. Patient was at dialysis this morning and just prior to starting dialysis he had a syncopal event. Unclear how long but there is no reported head injury or fall. Patient reportedly has been quite confused over the last week following his chemotherapy for multiple myeloma 8 days ago. notes that he is significantly improved the last 2 days which is typical postchemotherapy. She denies any falls, trauma, injuries. She notes he is on Coumadin and oftentimes scratches himself or bumps into things. She does not believe he fell and hit his head at any time though. Patient has received chemotherapy twice now over the last 2 months and each time has apparently had significant issues with it. Past Medical History:See Below Home Medications:See Below Allergies:See Below Vitals:Blood Pressure: 100/57, Pulse 72, RR 19, T 36.9C, O2 98% on RA Physical Exam: GENERAL: Patient is tired/somnolent/dehydrated appearing and in minimal distress. RESPIRATORY: No dyspnea. Clear to auscultation and equal bilaterally. CARDIOVASCULAR: Regular rate and rhythm.No murmur appreciated. GASTROINTESTINAL: Abdomen soft, non-tender, no peritonitis. EXTREMITIES: No weakness no swelling of lower extremity no swelling in hands NEUROLOGIC: Somnolent opens eyes to questions simple one-word answers.. No focal neurologic deficits appreciated SKIN: No rash, no jaundice, no diaphoresis. Some slight bruising of the right side of face and on arms ED Course: Times/Reassessments: Patient remains somewhat encephalopathic/somnolent but does answer questions when pressed. Saleem Tejdaa MD Past Med/Surg History Problem List (Updated 06/01/24 @ 13:29 by Saleem Tejada MD) Acute dehydration (Acute) Syncope (Acute) Hypercoagulable state Leg wound, left Chronic indwelling Sousa catheter (Acute) Elevated troponin (Acute) Anemia (Acute) CKD (chronic kidney disease) (Acute) AMS (altered mental status) (Acute) Cirrhosis Myocardial injury Acute metabolic encephalopathy (Acute) Sepsis Multiple myeloma without remission Immunocompromised AL amyloidosis ESRD (end stage renal disease) on dialysis Buerger disease Amputation above knee Left leg pain (Acute) Hyperlipidemia Hypertension hx-no current meds; "has low blood pressure now" Medical History AMS (altered mental status) Plasma cell neoplasm Occlusion of artery of lower extremity Ischemic leg Abdominal ascites History of COVID-19 03/2023, not hosp; still has low blood pressure now w/orthostatice hypotension PVCs (premature ventricular contractions) PAC (premature atrial contraction) Fall Rectal bleeding Rotator cuff arthropathy of right shoulder Perforation of tympanic membrane of left ear due to otitis media Degenerative disc disease GERD (gastroesophageal reflux disease) no current meds Monoclonal gammopathy work up underway March 2024 Acute on chronic renal insufficiency Hypoalbuminemia Orthostatic hypotension Syncope Sensorineural hearing loss (SNHL) of left ear with restricted hearing of right ear Seizure Grand mal (most recent 1978) Migraine History of palpitations BPH (benign prostatic hyperplasia) Bulging disc Osteoarthritis Glaucoma Restless leg syndrome Pulmonary embolism 1985 post-op (back surgery) Surgical History History of reverse total replacement of right shoulder joint right History of sinus surgery Endoscopic sinus surgery (08/09/18): [place] [facility] [place] issues noted per post-op anesthesia progress note. H/O eye surgery Detached retina repairs-bilateral H/O sinus surgery History of repair of rotator cuff R/L History of carpal tunnel release R/L History of discectomy Lumbar History of colonoscopy Dr. Richards with polypectomy History of tooth extraction History of cataract surgery R/L Family History Father Family hx of colon cancer Cancer Colorectal cancer Heart disease Grandfather (Maternal) Family hx of colon cancer Grandfather Colorectal cancer Social History Smoking Status: Former smoker Tobacco Type: Cigarettes Second Hand Exposure: Yes; Do You Dip or Chew Tobacco: No; Tobacco Cessation Education Requested by Patient: No Hx Alcohol Use: No Hx Substance Use: No Preferred Language: Estonian Communication Ability: Impaired Communication Ability Comment: pt is currently confused and disoriented Inside Sales Manager Required: No Beliefs That Will Affect Care: None marital status: Current Living Situation: Spouse Other Information That Helps Us Care for You: No Feels Safe at Home: Yes Safety Concerns: Feels Safe At This Time Diet: regular Assistive Devices: Prosthesis Allergies Allergies Allergy/AdvReac Type Severity Reaction Status Date / Time dorzolamide Allergy Severe eyes Verified 05/05/24 20:55 swollen azithromycin Allergy Intermediate Rash Verified 05/05/24 20:55 Home Meds Home Medications Medication Instructions Recorded Confirmed finasteride 5 mg tablet 5 mg PO DAILY 03/13/24 05/31/24 latanoprost 0.005 % eye drops 1 drp OPB DAILY 03/13/24 05/31/24 aspirin 81 mg tablet,delayed 81 mg PO QAM 05/05/24 05/31/24 release diphenoxylate-atropine 2.5 1 tab PO QID PRN Diarrhea 05/31/24 05/31/24 mg-0.025 mg tablet (Lomotil) midodrine 10 mg tablet 15 mg PO UD 05/31/24 05/31/24 torsemide 100 mg tablet 100 mg PO UD 05/31/24 05/31/24 warfarin 5 mg tablet 5 mg PO UD 05/31/24 05/31/24 Previous Rx's Medication Instructions Recorded folic acid 1 mg tablet 1 mg PO QAM #30 tabs 05/13/24 thiamine HCl (vitamin B1) 100 mg 100 mg PO QAM #30 tabs 05/13/24 tablet midodrine 10 mg tablet 10 mg PO TID #270 tabs 05/24/24 Results & Data (ED) Vital Signs Vital Signs - 24 hr 05/31/24 15:06 05/31/24 15:33 05/31/24 15:33 Pulse Rate 75 71 Pulse Rate from SpO2 Sensor 73 Respiratory Rate 18 14 Blood Pressure 120/68 Blood Pressure Mean 89 Pulse Oximetry 94 Oxygen Delivery Method Oxygen Flow Rate - Titration Pulse Oximetry Post Tiitration 05/31/24 15:51 Pulse Rate Pulse Rate from SpO2 Sensor Respiratory Rate Blood Pressure Blood Pressure Mean Pulse Oximetry 70 L Oxygen Delivery Method Room Air Oxygen Flow Rate - Titration 3 Pulse Oximetry Post Tiitration 97 Laboratory Data 06/01/24 06:26 06/01/24 06:26 Lab Results 05/31/24 05/31/24 Range/Units 12:05 14:50 WBC 4.42 L (4.8-10.8) K/ul RBC 3.35 L (4.70-6.10) M/uL Hgb 10.7 L (14.0-18.0) g/dl Hct 32.0 L (42.0-52.0) % MCV 95.5 (80.0-100.0) fL MCH 31.9 (25.0-34.0) pg MCHC 33.4 (32.0-36.0) g/dL RDW Std Deviation 71.1 H (36.4-46.3) fL RDW Coeff of Vince 21.2 H (11.5-14.5) % Plt Count 454 H (130-400) K/uL MPV 12.4 (9.4-12.4) fL Immature Gran % (Auto) 0.7 % Neut % (Auto) 57.7 % Lymph % (Auto) 18.8 % Foster % (Auto) 22.6 % Eos % (Auto) 0.0 % Baso % (Auto) 0.2 % Neut # (Auto) 2.55 (1.40-6.50) K/uL Lymph # (Auto) 0.83 L (1.20-3.40) K/uL Foster # (Auto) 1.00 H (0.11-0.59) K/uL Eos # (Auto) 0.00 (0.00-0.50) K/uL Baso # (Auto) 0.01 (0.00-0.20) K/uL Immature Gran # (Auto) 0.03 (0.01-0.20) K/uL Absolute Nucleated RBC 0.17 H (0.00-0.12) K/uL Nucleated RBC % (auto) 3.8 % Toxic Granulation 1+ Dohle Bodies 2+ Polychromasia 1+ Anisocytosis Present Target Cells 1+ PT 19.9 H (9.0-12.0) Seconds INR 1.9 H (0.9-1.1) APTT 43 H (21-31) Seconds PTT Ratio 1.6 Sodium 138 (136-145) mmol/L Potassium 3.4 L (3.5-5.1) mmol/L Chloride 98 (98-107) mmol/L Carbon Dioxide 33 H (21-32) mmol/L Anion Gap 7 (3-11) BUN 71 H (6-23) mg/dl Creatinine 3.85 H (0.6-1.4) mg/dl Est Cr Clr Drug Dosing 18.6 ml/min eGFR 15.57 BUN/Creatinine Ratio 18.4 (10-20) Glucose 89 (70-99(Fasting)) mg/dl Calcium 8.1 L (8.6-10.3) mg/dl Total Bilirubin 0.3 (0.2-1.0) mg/dl AST 41 H (13-39) U/L ALT 35 (7-52) U/L Alkaline Phosphatase 504 H (34-104) U/L Troponin I High Sens 98.4 H* 88.9 H* (0-20) pg/ml Total Protein 4.8 L (6.0-8.3) gm/dl Albumin 2.0 L (3.4-5.0) gm/dl Globulin 2.8 (2.5-4.0) gm/dl Albumin/Globulin Ratio 0.7 L (0.9-2) Administered Medications [facility]ir[facility] (Aspirin 81 Mg Ectab) [facility] [place]: 07/01/24 08:59 Last Admin: 06/01/24 08:15 Dose: 81 mg Documented By: RAFFAELE Finasteride (Finasteride 5 Mg Tab) 5 mg PO DAILY [facility] Stop: 07/01/24 08:59 Last Admin: 06/01/24 08:15 Dose: 5 mg Documented By: RAFFAELE Folic Acid (Folic Acid 1 Mg Tab) [facility] [place]: 07/01/24 08:59 Last Admin: 06/01/24 08:15 Dose: 1 mg Documented By: RAFFAELE Latanoprost (Latanoprost 0.005% Op Soln 2.5 Ml Btl) 1 drops OPB DAILY [facility] Stop: 07/01/24 08:59 Last Admin: 06/01/24 08:15 Dose: 1 drops Documented By: RAFFAELE Midodrine (Midodrine Hcl 10 Mg Tab) 10 mg PO 0700,1200,1500 [facility] Stop: 06/30/24 21:14 Last Admin: 06/01/24 11:19 Dose: 10 mg Documented By: Admin: 06/01/24 08:15 Dose: 10 mg Documented By: Admin: 05/31/24 21:55 Dose: 10 mg Documented By: KINGSLEY Thiamine HCl (Thiamine Hcl 100 Mg Tab) [facility] [place]: 07/01/24 08:59 Last Admin: 06/01/24 08:15 Dose: 100 mg Documented By: RAFFAELE Warfarin Sodium (Warfarin Sod 5 Mg Tab) 5 mg PO TODAY@1600 [facility] Stop: 06/30/24 20:59 Last Admin: 05/31/24 21:55 Dose: 5 mg Documented By: KINGSLEY Discontinued Medications Heparin Sodium (Porcine) (Heparin Sod (Porcine) 1000 Unit/Ml) 1,500 units IV ONE ONE Stop: 06/01/24 07:55 Last Admin: 06/01/24 11:18 Dose: Not Given Documented By: CC Heparin Sodium (Porcine) (Heparin Sod (Porcine) 1000 Unit/Ml) 800 units IV Q1H [facility] Stop: 06/01/24 10:01 Last Admin: 06/01/24 11:18 Dose: Not Given Documented By: Admin: 06/01/24 11:18 Dose: Not Given Documented By: Admin: 06/01/24 11:18 Dose: Not Given Documented By: CC Sodium Chloride (Nss) 500 mls @ 999 mls/hr IV .Q31M ONE Stop: 05/31/24 15:17 Last Infusion: 05/31/24 16:41 Dose: Infused Documented By: Admin: 05/31/24 15:34 Dose: 999 mls/hr Documented By: TNK Imaging Data Radiologist's Impression: Chest X-Ray 05/31/24 12:14 XR chest 1V portable CLINICAL HISTORY: Chest pain, nonspecific COMPARISON STUDY: 05/05/2024 FINDINGS: Stable right dialysis catheter. Stable mild cardiomegaly with mild pulmonary vascular congestion. Inspiration is shallow. No effusion, consolidation, or pneumothorax. IMPRESSION: Stable exam. ACT 112: Negative or not required by law. Electronically signed by: Benjamin Gomez M.D. 05/31/2024 12:52 PM Discharge Plan Visit Data Chief Complaint: Syncope ED Provider: Saleem Tejada Discharge Problem: Acute metabolic encephalopathy, Syncope, Acute dehydration Patient Disposition: Admitted As Inpatient Discharge Instructions Interventions: ED Discharge Assessment Last Done: 05/31/24 17:44 Discharge Problem: Syncope Qualifiers: Syncope type: unspecified Qualified Code(s): R55 - Syncope and collapse
--- NOTE | 2024-05-31 14:46 | Electrocardiogram Report ---
Test Reason : Blood Pressure : */* mmHG Vent. Rate : 70 BPM Atrial Rate : 70 BPM P-R Int : 166 ms QRS Dur : 104 ms QT Int : 438 ms P-R-T Axes : 47 -64 84 degrees QTcB Int : 473 ms Normal sinus rhythm Left anterior fascicular block Possible Anterolateral infarct (cited on or before 15-Mar-2024) When compared with ECG of 05-May-2024 17:20, Significant changes have occurred Confirmed by Nikos Underwood ([id number]) on 05/31/2024 2:45:52 PM Referred By: Confirmed By: Nikos Underwood
[2024-05-31] MEDS: SODIUM CHLORIDE 0.9% 500 ML IV ONE (15:34)
--- NOTE | 2024-05-31 15:47 | CT Scan Report ---
CT head/brain wo con CLINICAL HISTORY: 74 years-old Male with encephalopy. Acute altered mental status with syncope TECHNIQUE: Multiple axial CT images of the head were obtained without contrast. A dose lowering tech nique was utilized adhering to the principles of ALARA. CT DOSE: 625.8 mGy.cm COMPARISON: 05/13/2024 FINDINGS: No acute intracranial hemorrhage, midline shift, intracranial mass, hydrocephalus, territorial ischem ia or abnormal extra-axial collection. Involutional changes. White matter hypodensities suggestive of probable mild chronic microvascular ischemic disease. Study is minimally motion degraded. The calvarium is intact. Prior bilateral lens repair. The paranasal sinuses, mastoid air cells, and m iddle ear cavities are clear. IMPRESSION: No acute intracranial abnormality. ACT 112: Negative or not required by law. The above report was generated using voice recognition software. It may contain grammatical, syntax o r spelling errors. Electronically signed by: Trevon Veliz M.D. 05/31/2024 3:45 PM
--- NOTE | 2024-05-31 15:48 | History & Physical Report ---
Date of Service May 31, 2024 Assessment & Plan (1) AMS (altered mental status): (2) Syncope: (3) Multiple myeloma without remission: Plan: #AMS #Possible metabolic encephalopathy #Syncopal episode #History Hypotension #Multiple myeloma #Generalized weakness #Ambulatory dysfunction Patient is 74 year old male with PMH ESRD on HD, multiple myeloma, cirrhosis, Buerger disease, PVD, Burger's disease, BPH, AL light chain amyloidosis, history left above knee amputation, history of pulmonary embolism presented to ER with c/o reported syncope and hypotension at dialysis today. Recent hospitalization for AMS after chemo which reports mental status returned to baseline. Repeat chemo 8 days ago and since with AMS, generalized weakness, bedbound and poor oral intake. reports mental status improving over past 2 days. In ER afebrile, vitals stable. WBC: 4.4, H/H: 10/32, INR: 1.9, potassium: 3.4 CT head: No acute intracranial abnormality CXR: No acute infiltrate Obtain ammonia level Obtain stool studies, c-diff if recurrent diarrhea Pt with infectious workup recently which was unremarkable. prefers holding on further workup including forgoing Biofire respiratory panel at this time. If would develop fever plan to pursue infectious workup including including blood cultures. Suspect AMS/encephalopathy secondary to chemo Monitor vitals Continue home midodrine Hold home torsemide at this time and monitor PT/OT eval. Previously deferred rehab but states would be open to it now if needed CBC, BMP in am #Elevated troponin Trop downtrending 98-->88 EKG: Sinus rhythm, LAFB Trend troponin, if uptrending consider echo and/or cardiology consult. prefers minimal further workup if possible #ESRD On HD on MWF schedule Nephrology consult for assistance with HD #Cirrhosis Noted on prior abdominal imaging Ammonia level WNL Monitor #Buerger Disease #History PVD #History prior PE Continue aspirin, warfarin INR: 1.9 Monitor INR #BPH History requiring Sousa cath in past. No current Sousa cath. Requires self cath by (who prior nurse) typically once daily Bladder scan as needed DVT Prophylaxis On warfarin, monitor INR Admit med tele Full Code as per discussion with pt's . She states will have ongoing conve rsation and consideration in the future Follows with Dr Tucker for routine care Pt was seen and care coordinated with Dr Lopez. See addendum I spent a total of 73 minutes reviewing notes, outpatient records, labs, medication, coordinating, documenting and providing care for this patient excluding time spent in the performance of separately billed services and excluding time spent by another provider/QHP. History of Present Illness Chief Complaint: Syncope Primary Care Provider: Rahul Tucker MD Patient is 74 year old male with PMH ESRD on HD, multiple myeloma, cirrhosis, Buerger disease, PVD, Burger's disease, BPH, AL light chain amyloidosis, history left above knee amputation, history of pulmonary embolism presented to ER with c/o syncope. History obtained from and inpatient chart review. reports patient states at home has near syncopal episodes and when that occurs they have him get supine before he actually passes out. he is on midodrine for history hypotension. Recent hospital admission 05/05/2024-05/13/2024 for altered mental status, possible metabolic encephalopathy thought possible secondary to receiving chemo. At that time had unremarkable infectious workup. CT head normal. Had abnormal EEG, neurology was consulted and had recommended MRI if able however MRI unable to be obtained. reports patient's mental status returned to his baseline. States he has been weak. Rehab was suggested but patient's wanted to trial home care. reports had 2nd round of chemo 8 days ago and reports since he has been bed bound and confused. He had not eating and drinking after chemo. States 2 days ago started eating and drinking and then had some loose BM's and his mental status was improving. He is still very weak. It is reported today patient had syncopal episode at dialysis and was hypotensive and was sent to ER. denies any noted cough, wheezing, noted SOB, vomiting. She states Sousa catheter is out. She will straight cath him as needed, usually once a day. Denies any known fever or chills. Allergies Allergy/AdvReac Type Severity Reaction Status Date / Time dorzolamide Allergy Severe eyes Verified 05/05/24 20:55 swollen azithromycin Allergy Intermediate Rash Verified 05/05/24 20:55 Home Medications Medication Instructions Recorded Confirmed Type finasteride 5 mg tablet 5 mg PO DAILY 03/13/24 05/31/24 History latanoprost 0.005 % eye drops 1 drp OPB DAILY 03/13/24 05/31/24 History aspirin 81 mg tablet,delayed 81 mg PO QAM 05/05/24 05/31/24 History release folic acid 1 mg tablet 1 mg PO QAM #30 tabs 05/13/24 05/31/24 Rx thiamine HCl (vitamin B1) 100 mg 100 mg PO QAM #30 tabs 05/13/24 05/31/24 Rx tablet midodrine 10 mg tablet 10 mg PO TID #270 tabs 05/24/24 05/31/24 Rx diphenoxylate-atropine 2.5 1 tab PO QID PRN Diarrhea 05/31/24 05/31/24 History mg-0.025 mg tablet (Lomotil) midodrine 10 mg tablet 15 mg PO UD 05/31/24 05/31/24 History torsemide 100 mg tablet 100 mg PO UD 05/31/24 05/31/24 History warfarin 5 mg tablet 5 mg PO UD 05/31/24 05/31/24 History Past Med/Surg History Problem List (Updated 05/31/24 @ 16:37 by Karen Kraft PA-C) Syncope Hypercoagulable state Leg wound, left Chronic indwelling Sousa catheter (Acute) Elevated troponin (Acute) Anemia (Acute) CKD (chronic kidney disease) (Acute) AMS (altered mental status) (Acute) Cirrhosis Myocardial injury Acute metabolic encephalopathy Sepsis Multiple myeloma without remission Immunocompromised AL amyloidosis ESRD (end stage renal disease) on dialysis Buerger disease Amputation above knee Left leg pain (Acute) Hyperlipidemia Hypertension hx-no current meds; "has low blood pressure now" Medical History AMS (altered mental status) Plasma cell neoplasm Occlusion of artery of lower extremity Ischemic leg Abdominal ascites History of COVID-19 03/2023, not hosp; still has low blood pressure now w/orthostatice hypotension PVCs (premature ventricular contractions) PAC (premature atrial contraction) Fall Rectal bleeding Rotator cuff arthropathy of right shoulder Perforation of tympanic membrane of left ear due to otitis media Degenerative disc disease GERD (gastroesophageal reflux disease) no current meds Monoclonal gammopathy work up underway March 2024 Acute on chronic renal insufficiency Hypoalbuminemia Orthostatic hypotension Syncope Sensorineural hearing loss (SNHL) of left ear with restricted hearing of right ear Seizure Grand mal (most recent 1978) Migraine History of palpitations BPH (benign prostatic hyperplasia) Bulging disc Osteoarthritis Glaucoma Restless leg syndrome Pulmonary embolism 1985 post-op (back surgery) Surgical History History of reverse total replacement of right shoulder joint right History of sinus surgery Endoscopic sinus surgery (08/09/18): [place] [facility] [place] No issues noted per post-op anesthesia progress note. H/O eye surgery Detached retina repairs-bilateral H/O sinus surgery History of repair of rotator cuff R/L History of carpal tunnel release R/L History of discectomy Lumbar History of colonoscopy Dr. Richards with polypectomy History of tooth extraction History of cataract surgery R/L Family History Father Family hx of colon cancer Cancer Colorectal cancer Heart disease Grandfather (Maternal) Family hx of colon cancer Grandfather Colorectal cancer Social History Smoking Status: Former smoker Tobacco Type: Cigarettes Second Hand Exposure: Yes; Do You Dip or Chew Tobacco: No; Tobacco Cessation Education Requested by Patient: No Hx Alcohol Use: No Hx Substance Use: No Preferred Language: Hong Konger Communication Ability: Impaired Communication Ability Comment: pt is currently confused and disoriented Sweatband Drummer Required: No Beliefs That Will Affect Care: None marital status: Current Living Situation: Spouse Other Information That Helps Us Care for You: No Feels Safe at Home: Yes Safety Concerns: Feels Safe At This Time Diet: regular Assistive Devices: Prosthesis Review of Systems Review of Systems: Unobtainable due to cognitive status Physical Exam Physical Exam: PE per Dr Graff Results & Data Results & Data Vital Signs (Past 12 Hours) Vital Signs Temp Pulse Pulse Resp BP BP Pulse Ox 05/31/24 14:00 80 17 131/74 95 05/31/24 12:15 72 05/31/24 12:14 98 05/31/24 12:00 36.9 C 71 19 100/57 L 97 05/31/24 12:00 97 05/31/24 12:00 36.9 C 71 17 100/57 L 97 O2 Del Method 05/31/24 14:00 Room Air 05/31/24 12:15 05/31/24 12:14 Room Air 05/31/24 12:00 Room Air 05/31/24 12:00 Room Air 05/31/24 12:00 Room Air Laboratory Results Short CBC 05/31/24 Range/Units 12:05 WBC 4.42 L (4.8-10.8) K/ul Hgb 10.7 L (14.0-18.0) g/dl Hct 32.0 L (42.0-52.0) % Plt Count 454 H (130-400) K/uL BMP 05/31/24 12:05 Sodium 138 Potassium 3.4 L Chloride 98 Carbon Dioxide 33 H BUN 71 H Creatinine 3.85 H Glucose 89 Calcium 8.1 L Liver Function 05/31/24 Range/Units 12:05 Total Bilirubin 0.3 (0.2-1.0) mg/dl AST 41 H (13-39) U/L ALT 35 (7-52) U/L Alkaline Phosphatase 504 H (34-104) U/L Albumin 2.0 L (3.4-5.0) gm/dl Diagnostic Findings Chest X-Ray 05/31/24 12:14 XR chest 1V portable CLINICAL HISTORY: Chest pain, nonspecific COMPARISON STUDY: 05/05/2024 FINDINGS: Stable right dialysis catheter. Stable mild cardiomegaly with mild pulmonary vascular congestion. Inspiration is shallow. No effusion, consolidation, or pneumothorax. IMPRESSION: Stable exam. ACT 112: Negative or not required by law. Electronically signed by: Benjamin Gomez M.D. 05/31/2024 12:[address] 05/31/24 14:47 CT head/brain wo con CLINICAL HISTORY: 74 years-old Male with encephalopy. Acute altered mental status with syncope TECHNIQUE: Multiple axial CT images of the head were obtained without contrast. A dose lowering technique was utilized adhering to the principles of ALARA. CT DOSE: 625.8 mGy.cm COMPARISON: 05/13/2024 FINDINGS: No acute intracranial hemorrhage, midline shift, intracranial mass, hydrocephalus, territorial ischemia or abnormal extra-axial collection. Involutional changes. White matter hypodensities suggestive of probable mild chronic microvascular ischemic disease. Study is minimally motion degraded. The calvarium is intact. Prior bilateral lens repair. The paranasal sinuses, mastoid air cells, and middle ear cavities are clear. IMPRESSION: No acute intracranial abnormality. ACT 112: Negative or not required by law. The above report was generated using voice recognition software. It may contain grammatical, syntax or spelling errors. Electronically signed by: Trevon Veliz M.D. 05/31/2024 3:45 PM Supervising Physician Co-Signing Physician Notes Patient seen and examined independently. Discussed with above provider. Patient was brought from the dialysis unit for concern of syncopal episode. His was at bedside who provided most of the history. As per her, patient is at baseline at the present time. She reports that patient has not been tolerating chemotherapy well and has episodes of confusion after the chemotherapy. His functional Status has significantly declined over the course of last few months. He is on midodrine for hypotension which will continue. Monitor for any fever/chill; will obtain blood culture if any suspicion for infectious source. His did not want him to be tested for COVID. Discussed CODE STATUS; she acknowledges that patient has significant decline in her condition and she understands that the disease is progressive. She wants him to be full code for now and will reassess his CODE STATUS down the road depending on his clinical condition. On physical examination; Constitutional: Closing his eyes; opens intermittently with his name. Does not follow commands. Bruising present on right cheek Respiratory: Bilateral vesicular breath sound. Cardiovascular: RRR, no murmur, no edema Vessels: no JVD or carotid bruit Chest: normal inspection of chest Abdomen: normal bowel sounds, soft, nontender, no hepatosplenomegaly Musculoskeletal: Right knee BKA. No joints Neurologic: PERRL, EOMI, grossly moves all extremities. I have reviewed the advanced practitioner's documentation, and I agree with, and take responsibility for the plan of care I spent a total of 30 minutes coordinating, documenting, and providing care for this patient excluding time spent in the performance of separately billed services. All of the aforementioned completed while collaborating with the assigned advanced practitioner for a full treatment plan
[2024-05-31] MEDS ORDERED: ACETAMINOPHEN 325 MG TAB PO PRN (18:34)
[2024-05-31] MEDS ORDERED: ONDANSETRON INJ 2 MG/ML 2 ML VIAL IV PRN (18:34)
--- OUTSIDE RECORDS SUMMARY | 2024-05-31 20:14 | External Medical Summary | Summary of Care ---
Author Name Unknown Organization [facility] Address [address] [place] [address] Phone [phone] Care Team Providers Care Hatch Tender Name Role Phone Rahul Tucker MD Primary Care Provide r Reason for Visit * Reason Onset Date Comments Advice 05/30/2024 Encounter Details Date Type Department Care Team (Late st Contact Info) Description 05/30/2024 Telephone Family Medicine [address] [address] Rahul Tucker MD [address] [place] [address] [place] [address] Advice Allergies Active Allergy Reactions Criticality Noted Date Comments Azithromycin Hives 12/10/2010 documented as of this encounter (statuses as of 05/31/2024) Medications Finasteride 5 MG Oral Tablet (Proscar) [...] (morning, before bedtime). 238 g 03/29/20 Active Additional Information Patient not taking.Reported on 05/21/2024 Sennosides-Docu sate Sodium 8.6-50 MG Oral Tablet [...] bedtime. 180 Tablet 1 04/11/20 24 Active Additional Information Patient not taking.Reported on 05/21/2024 Omeprazole 20 MG Oral Capsule Delayed Release [...] bedtime. 90 Capsule 3 04/26/20 24 Active Additional Information Patient not taking.Reported on 05/21/2024 Torsemide 20 MG Oral Tablet (Demadex) Take [...] Pain, Severe. 20 Tablet 04/30/20 24 Active Additional Information Patient not taking.Reported on 05/21/2024 Advanced Probiotic Oral Capsule Take by mouth. Activ e Diphenoxylate-A tropine 2.5-0.025 MG Oral Tablet (Lomotil)Indica tions:Light chain (AL) amyloidosis (HCC),Diarrhea, unspecified type Take 1 Tablet by mouth 4 times a day as needed for Diarrhea. 30 Tablet 05/21/19 25 Active Folic Acid 1 MG Oral Tablet Take 1 Tablet by mouth in the morning. 90 Tablet 1 05/30/19 25 Active Thiamine HCl 100 MG Oral Tablet (vitamin B-1) Take 1 Tablet by mouth in the morning. 90 Tablet 1 05/30/19 25 Active documented as of this encounter (statuses as of 05/31/2024) Active Problems Problem Noted Date Diagnosed Date [...] as of this encounter (statuses as of 05/31/2024) Resolved Problems Problem Noted Date Diagnosed Date Resolved Date CKD (chronic kidney disease) stage 5, GFR less than 15 ml/min 03/28/2024 04/22/2024 Carpal tunnel syndrome 06/17/201402/08 Allergic rhinitis 06/17/2014 02/08/2018 Adjustment disorder with depressed mood 12/10/2013 07/20/2017 Eczema 06/22/2012 07/20/2017 Epileptic seizure 12/10/2010 08/16/2018 documented as of this encounter (statuses as of 05/31/2024) Immunizations Name Administration Dates Next Due Pneumococcal Conjugate Vacc, 13 Valent (Prevnar) 06/17/2014 Pneumococcal Conjugate Vacci ne, 20-valent ([id number]) 02/15/2022 Pneumococcal Polysaccharide PPV23 (Pneumovax) 05/19/2016 Seasonal [...] encounter Miscellaneous Notes * Telephone Encounter - Adry Lopez LPN - 05/30/2024 4:06 PM EST Spoke with pt's Bina. States that she was trying to get in contact with Brittney from the coag clinic to find out what dose of warfarin the pt should take tonight since the pt didn't have lab work done. Attempted transferring call to coumadin clinic by received stating that their clinic is closed. Reached out to Brittney Villela, [facility], PharmD and she recommended that the pt takes his usual 5 mg dose. Bina aware and has no further questions. * Telephone Encounter - Megan Cosme OSA - 05/30/2024 4:04 PM EST Requested to talk to nurse documented in this encounter Plan of Treatment Upcoming Encounters Date Type Department Care Team (Late st Contact Info) Description 05/31/2024 7:05 AM EST Laboratory Lab Mobile Phlebotomy [facility] [address] [place] [address] [facility], Gml Mobile Home Draw [address] [place] [address] Arrived 05/31/2024 5:30 PM EST Anticoagulation Pharmacy, [address] [place] [address] [place] [address] 06/06/2024 9:00 AM EST Pharmacy Pharmacy Hematology Oncology [facility] [address] [place] [address] [facility] Hem/Onc [address] [place] [address] 06/06/2024 12:30 PM EST Office Visit Hematology/Oncology [facility] [place] [address] [place] [address] Brian Dyson MD [address] [place] [address] 07/17/2024 11:15 AM EDT Procedure Only Urology, [facility] [address] [place] [address] Duglas Tadeo MD [address] [place] [address] [...] Advance Directives occurred with: Patient Care Teams Hatch Tender Relationship Specialty Start Date End Date Rahul Tucker MD [address] [place] [address] [place] [address] PCP - General Family Medicine 08/03/18 documented as of this encounter
--- OUTSIDE RECORDS SUMMARY | 2024-05-31 20:14 | External Medical Summary | Summary of Care ---
Author Name Unknown Organization [facility] [address] [facility] [address] Phone [phone] Care Team Providers Care Glove Brusher Name Role Phone Rahul Tucker MD Primary Care Provide r Reason for Visit * Reason Comments Appointment Encounter Details Date Type Department Care Team (Latest Contact Info) Description 05/30/2024 5:30 PM [facility] Anticoagulation Pharmacy, [address] [place] [address] [place] [address] Anticoagulation management encounter*; GARY (acute kidney injury) ([facility]); Light chain (AL) amyloidosis ([facility]) Allergies Active Allergy Reactions Criticality Noted Date Comments Azithromycin Hives 12/10/2010 documented as of this encounter (statuses as of 05/30/2024) Medications Finasteride 5 MG Oral Tablet (Proscar) [...] before bedtime). 238 g 03/29/20 24 Active Additional Information Patient not [...] as of this encounter (statuses as of 05/30/2024) Active Problems Problem Noted Date Diagnosed Date Portal hypertension 04/22/2024 Amyloidosis, unspecified 04/17/2024 GAYR (acute kidney injury) 03/29/2024 Light chain (AL) [...] as of this encounter (statuses as of 05/30/2024) Resolved Problems Problem Noted Date Diagnosed Date Resolved Date CKD (chronic kidney disease) stage 5, GFR less than 15 ml/min 03/28/2024 04/22/2024 Carpal tunnel syndrome 06/17/201402/08 Allergic rhinitis 06/17/2014 02/08/2018 Adjustment disorder with depressed mood 12/10/2013 07/20/2017 Eczema 06/22/2012 07/20/2017 Epileptic seizure 12/10/2010 08/16/2018 documented as of this encounter (statuses as of 05/30/2024) Immunizations Name Administration Dates Next Due Pneumococcal Conjugate Vacc, 13 Valent (Prevnar) 06/17/2014 Pneumococcal Conjugate Vacci ne, 20-valent ([id number]) 02/15/2022 Pneumococcal Polysaccharide PPV23 (Pneumovax) 05/19/2016 Seasonal [...] this encounter Progress Notes * Brittney Villela, [facility] - 05/30/2024 2:12 PM EST Medication Therapy Disease Management - Anticoagulation Patient: Dre Hitchcock Jody | : 1950 Subjective Contacts Contact Date/Time Type Contact Phone/Fax 05/30/2024 11:20 AM EST Phone (Incoming) Bina Vera (Emergency Contact) [phone] (M) 05/30/2024 03:56 PM EST Phone (Outgoing) Bina Vera (Emergency Contact) [phone] (M) INR rescheduled for tomorrow. GML to obtain, call placed. Per chart review, patient has not been eating or drinking the last week. Declined ER eval. Concerns regarding variability of INR due to thesefactors. [place] text sent to referring provider, Dr Dyson, to discuss. At this time, recommended continued anticoagulation due to recent PE and underlying amyloid disease. Will plan to continue to monitor closely utilizing GML services and home health as able. Called and spoke to Bina to make aware. Inquiring on additional thyroid workup to be ordered for GML to obtain tomorrow. Message sent to PCP. Brittney Villela [facility], PharmD Clinical Pharmacist - Director Of Patient Care Medication Therapy [facility] 05/30/2024, 3:55 PM [phone] * Elli Tate CPhT - 05/30/2024 11:20 AM EST Caller's name: Bina Preferred call back number(OFFICE NUMBER FOR ): [phone] Reason for call: Pts said their was a mix up with GML and they are coming tomorrow instead, pts would still like a return call from the [facility] today in regards to labs. She wouldn't specify, Idid place call on for tomorrow as well. Thank you, Elli Tate Hvac Estimator [facility] 05/30/2024,11:20 AM documented in this encounter Plan of Treatment Upcoming Encounters Date Type Department Care Team (Late st Contact Info) Description 05/31/2024 7:05 AM EST Laboratory Lab Mobile Phlebotomy [facility] [address] [place] [address] M[facility], Gml Mobile Home Draw [address] [place] [address] 05/31/2024 5:30 PM EST Anticoagulation Pharmacy, [address] [place] [address] [place] [address] 06/06/2024 9:00 AM EST Pharmacy Pharmacy Hematology Oncology [facility] [address] [place] [address] [facility] Hem/Onc [address] [place] [address] 06/06/2024 12:30 PM EST Office Visit Hematology/Oncology [facility] [address] [place] [id number] Brian Dyson MD [address] [facility] [place] [address] 07/17/2024 11:15 AM EDT Procedure Only Urology, [facility] [address] [facility] [place] [address] Duglas Tadeo MD [address] [place] [address] Scheduled Procedures Name Priority Associated Diagnoses Date/Ti [...] Advance Directives occurred with: Patient Care Teams Glove Brusher Relationship Specialty Start Date End Date Rahul Tucker MD [address] [place] [address] [place] [address] PCP - General Family Medicine 08/03/18 documented as of this encounter"
--- OUTSIDE RECORDS SUMMARY | 2024-05-31 20:14 | External Medical Summary | Summary of Care ---
Author Name Unknown Organization [facility] Address [address] [place] [address] Phone [phone] Care Team Providers Care Vp Delivery Name Role Phone Rahul Tucker MD Primary Care Provide r Reason for Visit * Reason Onset Date Comments Hospital Follow-Up 05/13/2024 Encounter Details Date Type Department Care Team (Late st Contact Info) Description 05/13/2024 Telephone Urology Geo Larios [address] [place] [address] Duglas Tadeo MD [address] [place] [address] Hospital Follow-Up Allergies Active Allergy Reactions Criticality Noted Date Comments Azithromycin Hives 12/10/2010 documented as of this encounter (statuses as of 05/24/2024) Medications Finasteride 5 MG Oral Tablet (Proscar) [...] mouth at bedtime. 90 Capsule 3 04/26/20 Active Additional Information Patient not taking.Reported on [...] needed for Pain, Severe. 20 Tablet 04/30/20 Active Additional Information Patient not taking.Reported on 05/21/2024 documented as of this encounter (statuses as of 05/24/2024) Active Problems Problem Noted Date Diagnosed Date [...] as of this encounter (statuses as of 05/24/2024) Resolved Problems Problem Noted Date Diagnosed Date Resolved Date CKD (chronic kidney disease) stage 5, GFR less than 15 ml/min 03/28/2024 04/22/2024 Carpal tunnel syndrome 06/17/201402/08 Allergic rhinitis 06/17/2014 02/08/2018 Adjustment disorder with depressed mood 12/10/2013 07/20/2017 Eczema 06/22/2012 07/20/2017 Epileptic seizure 12/10/2010 08/16/2018 documented as of this encounter (statuses as of 05/24/2024) Immunizations Name Administration Dates Next Due Pneumococcal Conjugate Vacc, 13 Valent (Prevnar) 06/17/2014 Pneumococcal Conjugate Vacci ne, 20-valent ([id number]) 02/15/2022 Pneumococcal Polysaccharide PPV23 (Pneumovax) 05/19/2016 Seasonal [...] 03/17/2024 6:46 PM Genoveva Vidal, RN * Are you blind or do [...] encounter Miscellaneous Notes * Telephone Encounter - Joelle Langley LPN - 05/24/2024 9:02 AM EST Duplicate encounter * Telephone Encounter - Duglas Tadeo MD - 05/14/2024 11:41 AM EST If wants to perform CIC the patient is bothered with the catheter she can proceed. Thanks, HM * Telephone Encounter - Libby De La Cruz LPN - 05/14/2024 11:33 AM EST Thank you. Keep catheter in until seen and schedule cysto within 1 month? Thank you Yelena * Telephone Encounter - Duglas Tadeo MD - 05/14/2024 11:26 AM EST Noted. Patient was to be scheduled for cystoscopy at his last visit in January. It seems appointment in March was canceled. Would recommend cystoscopy at the time of the patient's upcoming appointment with our service. Thanks, HM * Telephone Encounter - Libby De La Cruz LPN - 05/14/2024 11:[address] Tadeo: Spoke with Monica, pt's nurse. Patient's is stating patient is very uncomfortable from indewlling catheter and would like HH to remove today. 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 Monica is asking for an order to remove catheter during her visit withthem today. Please place order if agreeable. She will be with patient today [phone]. Thank you, Yelena Anderson: [phone] Kamaljit : [phone] * Telephone Encounter - Libby De La Cruz LPN - 05/14/2024 9:29 AM EST Current pt of Dr Tadeo. Should be seen within 1 month of catheter placement by provider or PA for hospital follow up and catheter discussion / removal. Thank you Yelena * Telephone Encounter - Katie Nicole RN - 05/13/2024 3:14 PM EST Dre Vera was discharged from [facility] on 05/13/24. Please see the following recommendations for follow up care. As discussed at the bedside, follow-up with urology in 1 week time upon discharge for voiding trialand possible removal of Sousa catheter. documented in this encounter Plan of Treatment Upcoming Encounters Date Type Department Care Team (Late st Contact Info) Description 05/30/2024 10:00 AM EST Laboratory [facility] [place] [address] [place] [phone] Shima, Lab Scenery [address] [place] [address] 05/30/2024 11:00 AM EST Office Visit Hematology/Oncology [facility] [place] [address] [place] [phone] Rebeca Aguillon CRNP [address] [facility] [place] [address] 05/30/2024 11:30 AM EST Hem/Onc Treatment Hematology/Oncology Treatment, [place] [address] [place] [phone] Shima, Chair 8 Hem Onc Scenery [address] [place] [address] 05/30/2024 5:30 PM EST Anticoagulation Pharmacy, [address] [place] [address] [place] [address] 06/06/2024 9:00 AM EST Pharmacy Pharmacy Hematology Oncology [facility] [address] [place] [address] [facility] Hem/Onc [address] [place] [address] 07/17/2024 11:15 AM EDT Procedure Only Urology, [facility] [address] [facility] [place] [address] Duglas Tadeo MD [address] [place] [phone] Scheduled Procedures Name Priority Associated Diagnoses Date/Ti [...] Advance Directives occurred with: Patient Care Teams Vp Delivery Relationship Specialty Start Date End Date Rahul Tucker MD [address] [place] [address] [place] [address] PCP - General Family Medicine 08/03/18 documented as of this encounter
--- OUTSIDE RECORDS SUMMARY | 2024-05-31 20:14 | External Medical Summary | Summary of Care ---
Author Name Unknown Organization [facility] Address [address] [place] [address] Phone [phone] Care Team Providers Care Poultry Boner Name Role Phone Rahul Tucker MD Primary Care Provide r Reason for Visit * Reason Comments Chemotherapy C1/D8 - DaraVRD * Episode Based Medications (Routine) - Authorized Specialty Diagnoses / Procedures Referred By Contrajendra t Referred To Contact Diagnoses Light chain (AL) amyloidosis (HCC) Procedures AK DARATUMUMAB, HYALURONIDASE AK INJECTION, BORTEZOMIB, 0.1MG Brian Dyson MD [address] [place] [address], [place] [address] Phone: tel: fax: Hematology/Oncology Treatment, [address] [address] Phone: tel: fax: Referral ID Status Reason Start Date Expiration Date V isits Requested Visits Authorized [id number] Authorized 04/11/2024 04/30/[phone] Encounter Details Date Type Department Care Team (Latest Contact Info) Description 05/23/2024 10:30 AM EST Hem/Onc Treatment Hematology/Oncolog y Treatment, [address] [address] Shima, Chair 1 Hem Onc [address] [place] [address] Light chain (AL) amyloidosis (HCC)*; Encounter for antineoplastic chemotherapy Allergies Active Allergy Reactions Criticality Noted Date Comments Azithromycin Hives 12/10/2010 documented as of this encounter (statuses as of 05/23/2024) Medications Finasteride 5 MG Oral Tablet (Proscar) [...] Additional Information Patient not taking.Reported on 05/21/2024 Thiamine 100 MG OR Tablet Take 1 Tablet by mouth in the morning. Active Folic Acid 1 MG Oral Tablet Take 1 Tablet by mouth in the morning. Active Advanced Probiotic Oral Capsule Take by mouth. Activ e Diphenoxylate-A tropine 2.5-0.025 MG Oral Tablet (Lomotil)Indica tions:Light chain (AL) amyloidosis (HCC),Diarrhea, unspecified type Take 1 Tablet by mouth 4 times a day as needed for Diarrhea. 30 Tablet 05/21/19 25 Active documented as of this encounter (statuses as of 05/23/2024) Active Problems Problem Noted Date Diagnosed Date [...] as of this encounter (statuses as of 05/23/2024) Resolved Problems Problem Noted Date Diagnosed Date Resolved Date CKD (chronic kidney disease) stage 5, GFR less than 15 ml/min 03/28/2024 04/22/2024 Carpal tunnel syndrome 06/17/201402/08 Allergic rhinitis 06/17/2014 02/08/2018 Adjustment disorder with depressed mood 12/10/2013 07/20/2017 Eczema 06/22/2012 07/20/2017 Epileptic seizure 12/10/2010 08/16/2018 documented as of this encounter (statuses as of 05/23/2024) Immunizations Name Administration Dates Next Due Pneumococcal Conjugate Vacc, 13 Valent (Prevnar) 06/17/2014 Pneumococcal Conjugate Vacci ne, 20-valent ([id number]) 02/15/2022 Pneumococcal Polysaccharide PPV23 (Pneumovax) 05/19/2016 Seasonal [...] Sign Reading Time Taken Comments Blood Pressure 90/49 05/23/2024 10:33 AM EST Pulse 74 05/23/2024 10:33 AM EST Temperature 36.9 C (98.4 F) 05/23/2024 10:[address] Respiratory Rate 16 05/23/2024 10:33 AM EST Oxygen Saturation 92% 05/23/2024 10:33 AM EST Inhaled Oxygen Concentration - - Weight 83.5 kg (184 lb) 05/23/2024 10:33 AM EST Height - - Body Mass Index 26.4 03/17/2024 6:46 PM EST documented in this [...] 03/17/2024 6:46 PM EST Genoveva Cardona, YOHAN * Because of a physical, mental, [...] Nursing Notes * Kavita Andrade RN - 05/23/2024 3:56 PM EST Goals: Patient will remain free from injury. Possible barriers to meeting goals: ambulating with IV pole, IVP Benadryl, L AKA, fatigue and weakness Stability of the patient: Moderately stable - low risk of patient condition declining or worsening Summary regarding today's goals: Met: pt remained free of harm today Patient tolerated treatment well without any acute issues or problems. Pt stayed for 2 hour observation post Darzalex injection. Patient left facility in stable condition and denied any further needs. * Kavita Andrade RN - 05/23/2024 3:44 PM EST Chair 7. Patient here for C1/D8 - Darzalex Faspro and Velcade, holding PO Cytoxan at this time per Dr. Dyson. Patient just saw Dr. Dyson 05/21 - see OV note for further details. Patient is feeling fatigued and weak today but had recently gotten out of the hospital and did alsohave HD yesterday, continues on HD MWF. Patient is currently not taking PO Cytoxan or acyclovir at this time. He is not taking any pain meds or gabapentin at this time either d/t possible altered mental status with oxycodone and gabapentinwas not helping his L AKA phantom pain. Taking Tylenol PRN at this time but this does not help much. Dr. Dyson had discussed possible options with Dr. Matamoros. At this time, continuing with Tylenol and needing to get chemo. Patient would not be able to establish with Dr. Matamoros at this time since HD is on MWF and HD is usually from 10-04 pm, would not beable to come here earlier in morning. Will CTM. Patient taking Midodrine TID. BP today 90/49, accompanied by . Chemotherapy/Immunotherapy agents: DARZALEX and VELCADE Consent for chemotherapy drug treatment complete, dated, and signed? 04/10/2024 Treatment lab parameters met? No, ANC is 1.33 - okay to tx with Dr. Dyson, all other labs reviewed with Dr. Dyson, stable for patient and okay for tx today Has treatment weight changed > than 10%? Yes - no change in Velcade dose at this time per Dr. Dyson, on HD also which can fluctuate weight Treatment preauthorized? Yes VITALS Filed Vitals: 05/23/24 1033 BP: 90/49 Pulse: 74 Resp: 16 Temp: 36.9 C (98.4 F) TempSrc: Tympanic SpO2: 92% Weight: 83.5 kg (184 lb) BP Readings from Last 2 Encounters: 05/23/24 90/49 05/21/24 71/46 Pulse Readings from Last 2 Encounters: 05/23/24 74 05/21/24 72 Resp Readings from Last 2 Encounters: 05/23/24 16 05/02/24 18 SpO2 Readings from Last 2 Encounters: 05/23/24 92% 05/21/24 93% Temp Readings from Last 2 Encounters: 05/23/24 36.9 C (98.4 F) (Tympanic) 05/21/24 36.2 C (97.2 F) (Tympanic) Urine protein: N/A Patient education completed for treatment? Yes Blood transfusion consent signed and complete? NA Return appointment scheduled? Yes Patient had provider visit today? No - If no provider visit must complete Pretreatment Assessment Functional Status: Functional status at today's visit: Capable of only limited selfcare, confined to bed or chair more than 50% of waking hours The [...] using the heat function. PRE-TREATMENT ASSESSMENT: NEURO: fatigue:ongoing, see above CV/RESP: denies symptoms GI/: denies symptoms and OTHER: diarrhea has resolves, Sousa catheter in place OTHER: denies any additional symptoms PAIN: 3-4 pain location : L stump AKA pain, phantom pain, see above Safety and Risk for Injury Patient will remain free from injury. Ensure appropriate safety devices are available. Provide and maintain safe environment. documented in this encounter Plan of Treatment Upcoming Encounters Date Type Department Care Team (Latest Contact Info) Description 05/23/2024 5:40 PM EST Anticoagulation Pharmacy, [address] [place] [address] [place] [address] [place] [address] Anticoagulation management encounter*; GARY (acute kidney injury) (HCC); Light chain (AL) amyloidosis (HCC) 05/24/2024 9:00 AM EST Pharmacy Pharmacy Hematology Oncology [facility] [address] [place] [address] [facility] Hem/Onc [address] [place] [address] Light chain (AL) amyloidosis (HCC)* 05/30/2024 10:00 AM EST Laboratory Laboratory [facility] Yasmin Ronquillo [address] [place] [phone] Shima, Lab Scenery [address] [place] [address] 05/30/2024 11:00 AM EST Office Visit Hematology/Oncolog y [facility] [place] [address] [place] [phone] Rebeca Aguillon CRNP [address] [place] [address] 05/30/2024 11:30 AM EST Hem/Onc Treatment Hematology/Oncolog y Treatment, [place] [address] [place] [address] Shima, Chair 8 Hem Onc Scenery [address] [place] [address] 05/30/2024 5:30 PM EST Anticoagulation Pharmacy, [address] [place] [address] [place] [address] [place] [address] 06/06/2024 9:00 AM EST Pharmacy Pharmacy Hematology Oncology [facility] [address] [place] [address] [facility] Hem/Onc [address] [place] [address] 07/17/2024 11:15 AM EDT Procedure Only Urology, [facility] [address] [facility] [place] [address] Duglas Tadeo MD [address] [place] [address] Scheduled Procedures Name Priority Associated Diagnoses Date/Ti [...] amyloidosis (HCC)- Primary documented in this encounter Administered Medications Active Administered Medications - up to 3 most recent administrations Medication Order MAR Action Action Date Dose Rate Site diphenhydrAMINE (Benadryl) inj 50 mg 50 mg, IV Push, ONCE PRN Other, Hypersensitivity Reaction, Starting on Mon05/23/24 at 1128, Until Mon05/24/24 at 1127, For 24 hoursIndications:Light chain (AL) amyloidosis (HCC) EPINEPHrine 1 MG/ML inj 0.3 mg 0.3 mg, Intramuscular, ONCE PRN Other, Hypersensitivity Reaction or Anaphylaxis, Starting on Mon05/23/24 at 1128, Until Mon05/24/24 at 1127, For 24 hoursIndications:Light chain (AL) amyloidosis (HCC) Hydrocortisone Sod Suc (PF) (Solu-Cortef) inj 100 mg 100 mg, IV Push, ONCE PRN Other, Hypersensitivity Reaction, Starting on Mon05/23/24 at 1128, Until Mon05/24/24 at 1127, For 24 hoursIndications:Light chain (AL) amyloidosis (HCC) meperidine (Demerol) 25 MG/ML inj 25 mg 25 mg, Intramuscular, ONCE PRN Shivering, Chills/Rigors from acute infusion reaction, Starting on Mon05/23/24 at 1128, Until Mon05/24/24 at 1127, For 24 hoursIndications:Light chain (AL) amyloidosis (HCC) meperidine (Demerol) 25 MG/ML inj 25 mg 25 mg, IV Push, ONCE PRN Shivering, Starting on Mon05/23/24 at 1128, Until DiscontinuedIndications:Light chain (AL) amyloidosis (HCC) oxygen GAS Inhalation, OXYGEN, First dose on Mon05/23/24 at 1600, Until Discontinued, Device/Managed by: Low [...] 650 mg 650 mg, Oral, ONCE, On Mon05/23/24 at 1230, For 1 dose, Maximum of 4 grams (4000 mg) per day.Indications:Light chain (AL) amyloidosis (HCC) Given 05/23/2024 11:37 AM EST 325 mg Bortezomib (Velcade) 2.5 mg/mL subQ inj 2.75 mg 2.75 mg (rounded from 2.821 mg = 1.3 mg/m2 2.17 m2 Treatment Plan BSA from Recorded weight), Subcutaneous, ONCE, On Mon05/23/24 at 1300, For 1 dose, Administer subcutaneously in thigh or abdomen-rotate siteIndications:Light chain (AL) amyloidosis (HCC) Given 05/23/2024 12:07 PM EST 2.75 mg Abdomen Right Lower Daratumumab-hyaluronidase- fihj (Darzalex Faspro) 1800 mg-88095 units/ 15 ml subcut inj 15 mL, Subcutaneous, ONCE, On Sabrina 05/23/24 at 1330, For 1 dose, Inject subcutanteously into abdomen over 3 to 5 minutesIndications:Light chain (AL) amyloidosis (HCC) Given 05/23/2024 12:08 PM EST 15 mL Abdomen Left Lower dexAMETHasone (Decadron) tab 20 mg 20 mg, Oral, ONCE, On Sabrina 05/23/24 at 1230, For 1 doseIndications:Light chain (AL) amyloidosis (HCC) Given 05/23/2024 11:37 AM EST 20 mg diphenhydrAMINE (Benadryl) inj 25 mg 25 mg, IV Push, ONCE, On Sabrina 05/23/24 at 1200, For 1 doseIndications:Light chain (AL) amyloidosis (HCC) Given 05/23/2024 11:36 AM EST 25 mg documented in this encounter Advance Directives * Full Code (Latest Code Status on File) Date Activated Date Inactivated Comments 03/17/2024 7:37 PM 03/29/2024 7:58 PM This order reflects the patients wishes and were consensually agreed upon. Question Answer Comments Discussion of Advance Directives occurred with: Patient Care Teams Poultry Boner Relationship Specialty Start Date End Date Rahul Tucker MD [address] [place] [address] [place] [phone] PCP - General Family Medicine 08/03/18 documented as of this encounter
--- OUTSIDE RECORDS SUMMARY | 2024-05-31 20:14 | External Medical Summary | Summary of Care ---
Author Name Unknown Organization [facility] [address] [facility] [address] Phone [phone] Care Team Providers Care Supervisor Forming Department Name Role Phone Rahul Tucker MD Primary Care Provide r Reason for Visit * Reason Comments Appointment Encounter Details Date Type Department Care Team (Latest Contact Info) Description 05/30/2024 5:30 PM [facility] Anticoagulation Pharmacy, [address] [place] [address] [place] [address] Anticoagulation management encounter*; GARY (acute kidney injury) ([facility]); Light chain (AL) amyloidosis ([facility]) Allergies Active Allergy Reactions Criticality Noted Date [...] (Prevnar) 06/17/2014 Pneumococcal Conjugate Vacci ne, 20-valent ([id number]) 02/15/2022 Pneumococcal Polysaccharide PPV23 (Pneumovax) 05/19/2016 Seasonal [...] this encounter Progress Notes * Brittney Villela, [facility] - 05/30/2024 2:12 PM EST Medication Therapy Disease Management - Anticoagulation Patient: Dre Hitchcock Jody | : 1950 Subjective Contacts Contact Date/Time Type Contact Phone/Fax 05/30/2024 11:20 AM EST Phone (Incoming) Bina Vera (Emergency Contact) [phone] (M) 05/30/2024 03:56 PM EST Phone (Outgoing) Bina Vera (Emergency Contact) [phone] (M) INR rescheduled for tomorrow. GML to obtain, call placed. Per chart review, patient has not been eating or drinking the last week. Declined ER eval. Concerns regarding variability of INR due to thesefactors. [place] text sent to referring provider, Dr Dyson, [...] tomorrow. Message sent to PCP. Brittney Villela [facility], PharmD Clinical Pharmacist - [place] Machine Setup Operator Medication Therapy Disease Management [facility] 05/30/2024, 3:55 PM [phone] * Elli Tate CPhT - 05/30/2024 11:20 AM EST Caller's name: Bina Preferred call back number(OFFICE NUMBER FOR ): [phone] Reason for call: Pts said their was a mix up with GML and they are coming tomorrow instead, pts would still like a return call from the [facility] today in regards to labs. She wouldn't specify, Idid place call on for tomorrow as well. Thank you, Elli Tate Mobile Application Development Lead Centralized Clinical Pharmacy Services 05/30/2024,11:20 AM documented in this encounter Plan of Treatment Upcoming Encounters Date Type Department Care Team (Late st Contact Info) Description 05/31/2024 7:05 AM EST Laboratory Lab Mobile Phlebotomy [facility] [address] [place] [address] [facility] Draw [address] [place] [address] 05/31/2024 5:30 PM EST Anticoagulation Pharmacy, [address] [place] [address] [place] [address] 06/06/2024 9:00 AM EST Pharmacy Pharmacy Hematology Oncology [facility] [address] [place] [address] [facility] Hem/Onc [address] [place] [address] 06/06/2024 12:30 PM EST Office Visit Hematology/Oncology [facility] [address] [place] [phone] Brian Dyson MD [address] [facility] [place] [address] 07/17/2024 11:15 AM EDT Procedure Only Urology, [facility] [address] [facility] [place] [address] Duglas Tadeo MD [address] [place] [address] Scheduled Procedures Name Priority Associated Diagnoses Date/Ti [...] Directives occurred with: Patient Care Teams Supervisor Forming Department Relationship Specialty Start Date End Date Rahul Tucker MD [address] [place] [address] [place] [address] PCP - General Family Medicine 08/03/18 documented as of this encounter"
--- OUTSIDE RECORDS SUMMARY | 2024-05-31 20:14 | External Medical Summary | Summary of Care ---
Author Name Unknown Organization [facility] Address [address] [place] [address] Phone [phone] Care Team Providers Care Data Architect Name Role Phone Rahul Tucker MD Primary Care Provide r Reason for Visit * Reason Comments Chemotherapy C1/D8 - DaraVRD * Episode Based Medications (Routine) - Authorized Specialty Diagnoses / Procedures Referred By Contrajendra t Referred To Contact Diagnoses Light chain (AL) amyloidosis (HCC) Procedures SC DARATUMUMAB, HYALURONIDASE SC INJECTION, BORTEZOMIB, 0.1MG Brian Dyson MD [address] [place] [address], [place] [address] Phone: tel: fax: Hematology/Oncology Treatment, [address] [address] Phone: tel: fax: Referral ID Status Reason Start Date Expiration Date V isits Requested Visits Authorized [id number] Authorized 04/11/2024 04/30/2099 [id number] Encounter Details Date Type Department Care Team (Latest Contact Info) Description 05/23/2024 10:30 AM EST Hem/Onc Treatment Hematology/Oncolog y Treatment, [address] [address] Shima, Chair 1 Hem Onc [address] [place] [address] Light chain (AL) amyloidosis (HCC)*; Encounter [...] (Prevnar) 06/17/2014 Pneumococcal Conjugate Vacci ne, 20-valent ([id number]) 02/15/2022 Pneumococcal Polysaccharide PPV23 (Pneumovax) 05/19/2016 Seasonal [...] Description 05/30/2024 10:00 AM EST Laboratory Laboratory [facility] [address] [facility] [place] [phone] [place], Lab [facility] [address] [facility] [place] [address] 05/30/2024 11:00 AM EST Office Visit Hematology/Oncology [facility] [place] [address] [facility] [place] [phone] Rebeca Aguillon CRNP [address] [place], [place] [address] [address] 05/30/2024 11:30 AM EST Hem/Onc Treatment Hematology/Oncology Treatment, [place] [address] [place] [phone] Shima, Chair 8 Hem Onc [facility] [address] [facility] [place] [address] 05/30/2024 5:30 PM EST Anticoagulation Pharmacy, [address] [place] [address] [place] [address] 06/06/2024 9:00 AM [facility] Pharmacy Pharmacy Hematology Oncology [facility] [address] [place] [address] [facility] Hem/Onc [address] [place] [address] 07/17/2024 11:15 AM EDT Procedure Only Urology, [facility] [address] [facility] [place] [address] Duglas Tadeo MD [address] [place] [address] Scheduled Procedures Name Priority Associated Diagnoses Date/Ti [...] amyloidosis (HCC)- Primary Encounter for antineoplastic chemotherapy documented in this encounter Administered Medications Inactive Administered Medications - up to 3 most recent administrations Medication Order MAR Action Action Date Dose Rate Site Acetaminophen (Tylenol) tab 650 mg 650 mg, Oral, ONCE, On Sabrina 05/23/24 at 1230, For 1 dose, Maximum of 4 grams (4000 mg) per day.Indications:Light chain (AL) amyloidosis (HCC) Given 05/23/2024 11:37 AM EST 325 mg Bortezomib (Velcade) 2.5 mg/mL subQ inj 2.75 mg 2.75 mg (rounded from 2.821 mg = 1.3 mg/m2 2.17 m2 Treatment Plan BSA from Recorded weight), Subcutaneous, ONCE, On Sabrina 05/23/24 at 1300, For 1 dose, Administer subcutaneously in thigh or abdomen-rotate siteIndications:Light chain (AL) amyloidosis (HCC) Given 05/23/2024 12:07 PM EST 2.75 mg Abdomen Right Lower Daratumumab-hyaluronidase- fihj (Darzalex Faspro) 1800 mg-90108 units/ 15 ml subcut inj 15 mL, [...] Advance Directives occurred with: Patient Care Teams Data Architect Relationship Specialty Start Date End Date Rahul Tucker MD [address] [place] [address] [place] [address] PCP - General Family Medicine 08/03/18 documented as of this encounter
--- OUTSIDE RECORDS SUMMARY | 2024-05-31 20:14 | External Medical Summary | Summary of Care ---
Author Name Unknown Organization [facility] Address [address] [place] [facility] [facility] [place] [address] Phone [phone] Care Team Providers Care Awning Craftsman Name Role Phone Rahul Tucker MD Primary Care Provide r Reason for Visit * Reason Comments Dosage Adjustment Via Phone (anticoag Cl inic) Encounter Details Date Type Department Care Team (Latest Contact Info) Description 05/23/2024 5:40 PM [facility] Anticoagulation Pharmacy, [address] [place] [address] [place] [address] Anticoagulation management encounter*; GARY (acute kidney injury) (HCC); Light chain (AL) amyloidosis ([facility]) Allergies Active Allergy Reactions Criticality [...] (Prevnar) 06/17/2014 Pneumococcal Conjugate Vacci ne, 20-valent ([id number]) 02/15/2022 Pneumococcal Polysaccharide PPV23 (Pneumovax) 05/19/2016 Seasonal [...] this encounter Progress Notes * Brittney Villela, [facility] - 05/23/2024 2:56 PM EST Images from the original note were not included. Medication Therapy Disease Management - Anticoagulation Patient: Dre Hitchcock Joyd | : 1950 Subjective Contacts Contact Date/Time Type Contact Phone/Fax 05/23/2024 03:00 PM EST Phone (Outgoing) Bina Vera (Emergency Contact) [phone] (M) 05/23/2024 03:43 PM EST Phone (Outgoing) Bina Vera (Emergency Contact) [phone] (M) Patient-Reported Symptoms: Patient Findings Negatives: Signs/symptoms of thrombosis, Signs/symptoms of bleeding, Change in health, Change in alcohol use, Change in activity, Upcoming invasive procedure, Missed doses, Extra doses, Change in medications, Change in diet/appetite, Bruising Objective Current Warfarin Dose As of 05/23/2024 Warfarin maintenance plan: No maintenance plan INR Result As of 05/23/2024 INR goal: 2.0-3.0 INR used for dosin.7 (05/23/2024) Assessment & Plan Warfarin Plan As of 05/23/2024 Full warfarin instructions: 2.5 mg every Mon, Wed, Fri; 5 mg all other days Next INR check: 05/30/2024 Repeat PT/INR in 1 week(s) Weekly dose: established Additional Dosing Information: Description Pt would like to consider a home INR machine -- advised can try to submit paperwork after ~1 month of therapy (per most insurance requirements) I spent a total of 10-19 minutes (exact time 15 mins) on the date of service in preparation, delivery, and documentation of the care provided to Dre Vera excluding any time spent in the performance of separately billed services or time spent by another provider/QHP. Brittney Villela [facility] Clinical Pharmacist 05/23/2024, 2:56 PM documented in this encounter Plan of Treatment Upcoming Encounters Date Type Department Care Team (Latest Contact Info) Description 05/24/2024 9:00 AM EST Pharmacy Pharmacy Hematology Oncology [facility] [address] [place] [address] [facility] Hem/Onc [address] [place] [address] Light chain (AL) amyloidosis (HCC)* 05/30/2024 10:00 AM EST Laboratory [facility] [place] [address] [place] [phone] Shima [facility] [place] [address] 05/30/2024 11:00 AM EST Office Visit Hematology/Oncology [facility] [address] [place] [phone] Rebeca Aguillon CRNP [address] [place] [address] 05/30/2024 11:30 AM EST Hem/Onc Treatment [facility]ematology[facility]Oncology Treatment, [place] [facility] [phone] Shima, Chair 8 Hem Onc [facility] [place] [address] 05/30/2024 5:30 PM EST Anticoagulation Pharmacy, [address] [place] [address] [place] [address] 06/06/2024 9:00 AM EST Pharmacy Pharmacy Hematology Oncology [facility] [address] [place] [address] [facility] Hem/Onc [address] [place] [address] 07/17/2024 11:15 AM EDT Procedure Only Urology, [facility] [address] [facility] [place] [address] Duglas Tadeo MD [address] [place] [address] Scheduled Procedures Name Priority Associated Diagnoses Date/Ti [...] Advance Directives occurred with: Patient Care Teams Awning Craftsman Relationship Specialty Start Date End Date Rahul Tucker MD [address] [place] [address] [place] [address] PCP - General Family Medicine 08/03/18 documented as of this encounter"
--- OUTSIDE RECORDS SUMMARY | 2024-05-31 20:14 | External Medical Summary | Summary of Care ---
Author Name Unknown Organization [facility] Address [address] [place] [address] Phone [phone] Care Team Providers Care Returned Goods Inspector Name Role Phone Rahul Tucker MD Primary Care Provide r Reason for Visit * Reason Onset Date Comments Medication Refill 05/30/2024 Encounter Details Date Type Department Care Team (Late st Contact Info) Description 05/30/2024 Refill Family Medicine [address] [address] Torres Castro MD [address] [place] [phone] Allergies Active Allergy Reactions Criticality Noted Date [...] 4 11:58 AM EST 04/18/20 24 Active Gabapentin 100 MG Oral Capsule [...] for Diarrhea. 30 Tablet 05/21/19 25 Active Warfarin Sodium 5 MG Oral Tablet (Coumadin) Take up to 1 tablet by mouth daily as directed by anticoagulation clinic. 30 Tablet 4 05/31/19 25 Active Warfarin Sodium 5 MG Oral Tablet (Coumadin) Take up to 1 tablet by mouth daily as directed by anticoagulation clinic. 30 Tablet 5 04/19/20 24 025 Discontin ued(Refil l) documented as of this [...] (Prevnar) 06/17/2014 Pneumococcal Conjugate Vacci ne, 20-valent ([id number]) 02/15/2022 Pneumococcal Polysaccharide PPV23 (Pneumovax) 05/19/2016 Seasonal [...] encounter Miscellaneous Notes * Telephone Encounter - Stephanie Daniels, [facility] - 05/31/2024 5:45 AM ESTSigned Prescriptions: Disp Refills Warfarin Sodium 5 MG Oral Tablet (Coumadin)30 Tab*4 Sig: Take up to 1 tablet by mouth daily as directed by anticoagulation clinic. Authorizing Provider: TORRES CASTRO Ordering User: STEPHANIE DANIELS * Telephone Encounter - Deisy Logan PHARM Tech - 05/30/2024 9:04 AM EST Please reroute Rx to [facility] Pending Prescriptions: Disp Refills Warfarin Sodium 5 MG Oral Tablet (Coumadi*30 Tab*5 Sig: Take up to 1 tablet by mouth daily as directed by anticoagulation clinic. Last Visit: 04/22/2024 (in office), Visit date not found (telemedicine) Visit date not found If no future appointments scheduled, and last appointment is greater than a year ago, please schedule patient for a follow-up appointment Last date the medication was ordered: 04-19-24 Patient Phone Numbers Labs: Lab Results Component Value Date/Time CREAT 3.8 (H) 05/23/2024 10:06 AM CREAT 1.03 04/02/2019 12:00 AM CREAT 1.2 12/06/2017 12:26 PM POTASSIUM 3.6 05/23/2024 10:06 AM POTASSIUM 4.5 04/02/2019 12:00 AM POTASSIUM 4.7 08/03/2018 09:26 AM LDL 221 (H) 03/17/2024 10:16 PM LDL 76 02/04/2013 12:00 AM LDL 87 09/13/2012 08:40 AM LDLCALC 95 02/27/2018 12:00 AM ALT 28 05/23/2024 10:06 AM ALT 21 03/01/2017 12:00 AM HGBA1C 5.1 04/02/2019 12:00 AM documented in this encounter Plan of Treatment Upcoming Encounters Date Type Department Care Team (Latest Contact Info) Description 05/31/2024 7:05 AM EST Laboratory Lab [facility] [address] [place] [address] [facility] [address] [place] [address] Light chain (AL) amyloidosis (HCC); GARY (acute kidney injury) (HCC); Anticoagulation management encounter; HTN, goal below 140/90 05/31/2024 5:30 PM EST Anticoagulation Pharmacy, [address] [place] [address] [place] [address] 06/06/2024 9:00 AM EST Pharmacy Pharmacy Hematology Oncology [facility] [address] [place] [address] [facility] Hem/Onc [address] [place] [address] 06/06/2024 12:30 PM EST Office Visit Hematology/Oncology [facility] [address] [place] [address] Brian Dyson MD [address] [place] [address] 07/17/2024 11:15 AM EDT Procedure Only Urology, [facility] 132 [facility] [place] [id number] Duglas Tadeo MD [address] [place] [address] Scheduled Procedures Name Priority Associated Diagnoses [...] Advance Directives occurred with: Patient Care Teams Returned Goods Inspector Relationship Specialty Start Date End Date Rahul Tucker MD [address] [place] [address] [place] [address] PCP - General Family Medicine 08/03/18 documented as of this encounter
--- OUTSIDE RECORDS SUMMARY | 2024-05-31 20:14 | External Medical Summary | Summary of Care ---
Author Name Unknown Organization [facility] Address [address] [facility] [address] Phone [phone] Care Team Providers Care Associate Civil Engineer Name Role Phone Rahul Tucker MD Primary Care Provide r Encounter Details Date Type Department Care Team (Late st Contact Info) Description 05/30/2024 Orders Only PATIENT PORTAL DO NOT DELETE THIS DEPT USED BY [place] [address] Allergies Active Allergy Reactions Criticality Noted Date [...] clinic. 30 Tablet 5 04/19/20 Active Gabapentin 100 MG Oral Capsule (Neurontin) Take 1 capsule in AM and 1 capsule in afternoon. 04/22/20 24 Active Gabapentin 300 MG Oral Capsule (Neurontin) Take 1 Capsule by mouth at bedtime. 90 Capsule 3 04/26/20 Active Additional Information Patient not taking.Reported on 05/21/2024 Torsemide 20 MG Oral Tablet (Demadex) Take 3 Tablets by mouth in the morning. 90 Tablet 5 04/29/20 Active Midodrine HCl 10 MG Oral Tablet (Proamatine) Take 1 Tablet by mouth in the morning and 1 Tablet at noon and 1 Tablet in the evening. 60 Tablet 3 04/29/20 Active oxyCODONE HCl 5 MG Oral Tablet [...] (Prevnar) 06/17/2014 Pneumococcal Conjugate Vacci ne, 20-valent ([id number]) 02/15/2022 Pneumococcal Polysaccharide PPV23 (Pneumovax) 05/19/2016 Seasonal [...] Team (Late st Contact Info) Description 05/30/2024 5:30 PM EST Anticoagulation Pharmacy, [address] [place] [address] [place] [address] 05/31/2024 7:05 AM EST Laboratory Lab [facility] [address] [place] [address] [facility], [facility] Mobile [facility] Draw [address] [place] [address] [address] 06/06/2024 9:00 AM EST Pharmacy Pharmacy Hematology Oncology [address] [address] [facility] Hem/Onc [facility] [address] 06/06/2024 12:30 PM EST Office Visit Hematology/Oncology [facility] [address] [place] [address] Brian Dyson MD [address] [place] [address] 07/17/2024 11:15 AM EDT Procedure Only Urology, [facility] [address] [place] [address] Duglas Tadeo MD [address] [place] [...] Advance Directives occurred with: Patient Care Teams Associate Civil Engineer Relationship Specialty Start Date End Date Rahul Tucker MD [address] [place] [address] [place] [address] PCP - General Family Medicine 08/03/18 documented as of this encounter
--- OUTSIDE RECORDS SUMMARY | 2024-05-31 20:14 | External Medical Summary | Summary of Care ---
Author Name Unknown Organization [facility] Address [address] [place] [address] Phone [phone] Care Team Providers Care Sample Maker Name Role Phone Rahul Tucker MD Primary Care Provide r Reason for Visit * Reason Onset Date Comments Order Request 05/23/2024 Encounter Details Date Type Department Care Team (Late st Contact Info) Description 05/23/2024 Telephone Family Medicine [address] [address] Rahul Tucker MD [address] [place] [address] [place] [address] Order Request Allergies Active Allergy Reactions Criticality [...] (Prevnar) 06/17/2014 Pneumococcal Conjugate Vacci ne, 20-valent ([id number]) 02/15/2022 Pneumococcal Polysaccharide PPV23 (Pneumovax) 05/19/2016 Seasonal [...] Encounter - Joelle Langley LPN - 05/24/2024 8:32 AM EST I called and spoke with patients made her aware OK to dc alcaraz and resume CIC. She would like to keep appt as scheduled due to patients health status. Aware to proceed to ED with worsening symptoms. * Telephone Encounter - Duglas Tadeo MD - 05/23/2024 2:34 PM EST OK to remove alcaraz and resume CIC. Nursing order placed. Would ensure foreskin is reduced if botherwith redness and swelling. Patient has an upcoming visit for cystoscopy, we can look for sooner visit for exam any provider. Recommend proceeding to ER with worsening symptoms. Thanks, HM * Telephone Encounter - Rahul Tucker MD - 05/23/2024 11:47 AM EST Would recommend having urology weigh in on this request before having home health take out the Alcaraz. * Telephone Encounter - Rebecca Kaba RN - 05/23/2024 9:57 AM EST [place]. Spoke with patients Bina. The alcaraz catheter is driving patient melissa. His penis is red and irritated and its very sore and painful. She states that no one will take it out without him seeing urology. He does have the urge to go. She states she can't take him to another appointment and is wondering if PCP will send order to home health to remove alcaraz. Patient used to straight cath himself so patients states they have all the supplies they need for that. His urine output has been better as well. 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 Home health is coming tomorrow. Thank you! documented in this encounter Plan of Treatment Upcoming Encounters Date Type Department Care Team (Latest Contact Info) Description 05/24/2024 9:00 AM EST Pharmacy Pharmacy Hematology Oncology [facility] [address] [place] [address] [facility] Hem/Onc [address] [place] [address] Light chain (AL) amyloidosis (HCC)* 05/30/2024 10:00 AM EST Laboratory Laboratory Derrell Ronquillo [place] [address] [place] [address] [place], Lab [address] [place] [address] 05/30/2024 11:00 AM EST Office Visit Hematology/Oncology [facility] [address] [place] [phone] Rebeca Aguillon, INJECTION MOLDING PROCESS TECHNICIAN [address] [facility] [place] [phone] 05/30/2024 11:30 AM EST Hem/Onc Treatment Hematology/Oncology Treatment, [place] [address] [place] [phone] Shima, Chair [address] [facility] [address] [facility] [place] [address] 05/30/2024 5:30 PM EST Anticoagulation Pharmacy, [address] [place] [address] [place] [address] 06/06/2024 9:00 AM EST Pharmacy Pharmacy Hematology Oncology [address] [address] [facility] Hem/Onc [facility] [place] [address] 07/17/2024 11:15 AM EDT Procedure Only Urology, [facility] 132 [facility] [place] [address] Duglas Tadeo MD [address] [place] [address] [place] [address] Scheduled Procedures Name Priority [...] as of this encounter Visit Diagnoses Diagnosis Retention of urine- Primary Retention of urine, unspecified Light chain (AL) amyloidosis (HCC)- Primary documented in this encounter Advance Directives * Full Code (Latest Code Status on File) Date Activated Date Inactivated Comments 03/17/2024 7:37 PM 03/29/2024 7:58 PM This order reflects the patients wishes and were consensually agreed upon. Question Answer Comments Discussion of Advance Directives occurred with: Patient Care Teams Sample Maker Relationship Specialty Start Date End Date Rahul Tucker MD [address] [place] [address] [place] [address] PCP - General Family Medicine 08/03/18 documented as of this encounter
--- OUTSIDE RECORDS SUMMARY | 2024-05-31 20:15 | External Medical Summary | Summary of Care ---
Author Name Unknown Organization [facility] Address [address] [place] [address] Phone [phone] Care Team Providers Care Cut Lace Machine Operator Name Role Phone Rahul Tucker MD Primary Care Provide r Reason for Visit * Reason Onset Date Comments Home Health 05/16/2024 Encounter Details Date Type Department Care Team (Late st Contact Info) Description 05/16/2024 Telephone Family Medicine [address] [phone] Rahul Tucker MD [address] [place] [address] [place] [address] Home Health Allergies Active Allergy Reactions Criticality Noted Date Comments Azithromycin Hives 12/10/2010 documented as of this encounter (statuses as of 05/22/2024) Medications Finasteride 5 MG Oral Tablet (Proscar) [...] Oral Capsule Take by mouth. Activ e documented as of this encounter (statuses as of 05/22/2024) Active Problems Problem Noted Date Diagnosed Date [...] as of this encounter (statuses as of 05/22/2024) Resolved Problems Problem Noted Date Diagnosed Date Resolved Date CKD (chronic kidney disease) stage 5, GFR less than 15 ml/min 03/28/2024 04/22/2024 Carpal tunnel syndrome 06/17/201402/08 Allergic rhinitis 06/17/2014 02/08/2018 Adjustment disorder with depressed mood 12/10/2013 07/20/2017 Eczema 06/22/2012 07/20/2017 Epileptic seizure 12/10/2010 08/16/2018 documented as of this encounter (statuses as of 05/22/2024) Immunizations Name Administration Dates Next Due Pneumococcal Conjugate Vacc, 13 Valent (Prevnar) 06/17/2014 Pneumococcal Conjugate Vacci ne, 20-valent ([id number]) 02/15/2022 Pneumococcal Polysaccharide PPV23 (Pneumovax) 05/19/2016 Seasonal [...] Telephone Encounter - Ivania Tenorio CMA - 05/22/2024 6:18 PM EST Faxed DME order and OV to [facility] * Telephone Encounter - Rahul Tucker MD - 05/16/2024 9:55 AM EST Signed * Telephone Encounter - Emilia Lara LPN - 05/16/2024 9:35 AM EST Ed, PT calling from [facility]. Asking for an order for: Wheeled Walker [facility] in [place] Above knee amputation on left side DME Pended [facility] * Telephone Encounter - Bev Cunningham OSA - 05/16/2024 9:33 AM EST Reason for patient's call: Ed with [facility] is calling in to discuss getting orders placed for a wheel walker for this patient. Caller was transferred to Emilia at the nurse line. documented in this encounter Plan of Treatment Upcoming Encounters Date Type Department Care Team (Latest Contact Info) Description 05/23/2024 10:00 AM EST Laboratory Laboratory [facility] [place] [address] [place] [phone] Shima, Lab Scenery [address] [place] [address] 05/23/2024 10:30 AM EST Hem/Onc Treatment Hematology/Oncology Treatment, [place] [address] [place] [phone] Shima, Chair 1 Hem Onc Scenery [address] [place] [address] 05/23/2024 5:40 PM EST Anticoagulation Pharmacy, [address] [place] [address] [place] [address] 05/24/2024 9:00 AM EST Pharmacy Pharmacy Hematology Oncology [facility] [address] [place] [address] [facility] Hem/Onc [address] [place] [address] Light chain (AL) amyloidosis (HCC)* 05/30/2024 10:00 AM EST Laboratory Laboratory Scenery [place] [address] [place] [phone] Park, Lab Scenery [address] [place] [address] 05/30/2024 11:00 AM EST Office Visit Hematology/Oncology [facility] [address] [place] [phone] Rebeca Aguillon, NICOLE [address] [place] [address] 05/30/2024 11:30 AM EST Hem/Onc Treatment Hematology/Oncology Treatment, [place] [address] [facility] [address] [address] [place], [place] [phone] Shima, Chair 8 Hem Onc [facility] [address] [facility] [place] [address] 06/06/2024 9:00 AM EST Pharmacy Pharmacy Hematology Oncology [facility] [address] [place] [address] [facility] Hem/Onc [address] [place] [address] 07/17/2024 11:15 AM EDT Procedure Only Urology, [facility] [address] [facility] [place] [address] Duglas Tadeo MD [address] [facility] [place] [id number] Scheduled Procedures Name Priority Associated Diagnoses Date/Ti [...] as of this encounter Visit Diagnoses Diagnosis 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 Question Answer Comments Discussion of Advance Directives occurred with: Patient Care Teams Cut Lace Machine Operator Relationship Specialty Start Date End Date Rahul Tucker MD [address] [place] [address] [place] [address] PCP - General Family Medicine 08/03/18 documented as of this encounter
--- OUTSIDE RECORDS SUMMARY | 2024-05-31 20:15 | External Medical Summary ---
Author Name Unknown Address Unknown Organization K09[facility] [place] [address] Laboratory Report Ordering Provider Test Date Status YOLA CHURCH 05/23/2024 10:06:02 Final Observation Date Value Abnormality Reference (Units ) Status SYNC LEUKOCYTES IN BLOOD BY AUTOMATED COUNT 05/23/2024 10:06:02 1.65 Below low normal 4.00-10.80 (K/uL) Final Segs 05/23/2024 10:06:02 80.6 Above high normal 40.0-75.0 (%) Final Lymphs % 05/23/2024 10:06:02 15.2 Below low normal 18.0-42.0 (%) Final Monos 05/23/2024 10:06:02 3.6 1.0-11.0 (%) Final Eosinophils 05/23/2024 10:06:02 0.0 0.0-6.0 (%) Final Basos 05/23/2024 10:06:02 0.6 0.0-2.0 (%) Final Absolute Segs 05/23/2024 10:06:02 1.33 Below low normal 1.80-7.70 (K/uL) Final Lymphs, absolute 05/23/2024 10:06:02 0.25 Below low normal 1.00-4.80 (K/ul) Final Monos, Abs 05/23/2024 10:06:02 0.06 0.00-1.10 (K/uL) Final Eos, Abs 05/23/2024 10:06:02 0.00 0.00-0.70 (K/uL) Final Basos, Abs 05/23/2024 10:06:02 0.01 0.00-0.20 (K/uL) Final Performing Location [facility] [place] [address]
--- OUTSIDE RECORDS SUMMARY | 2024-05-31 20:15 | External Medical Summary ---
Author Name Unknown Address Unknown Organization K01:[facility] - [address] [facility] [address] Laboratory Report Ordering Provider Test Date Status YOLA CHURCH 05/23/2024 10:06:02 Final Observation Date Value Abnormality Reference (Units) Status PARAPROTEIN NORMAL/ABNORMAL 05/23/2024 10:06:02 Abnormal Abnormal Normal Final Protein 05/23/2024 10:06:02 4.8 Below low normal 6.0-8.3 (g/dL) Final Albumin/Protein.total [Pure mass fraction] in Serum or Plasma by Electrophoresis 05/23/2024 10:06:02 1.52 Below low normal 3.30-4.40 (g/dL) Final Alpha 1 globulin/Protein.tota l [Pure mass fraction] in Serum or Plasma by Electrophoresis 05/23/2024 10:06:02 0.30 0.10-0.30 (g/dL) Final Alpha 2 globulin/Protein.tota l [Pure mass fraction] in Serum or Plasma by Electrophoresis 05/23/2024 10:06:02 1.06 Above high normal 0.60-1.00 (g/dL) Final Beta globulin/Protein.tota l [Pure mass fraction] in Serum or Plasma by Electrophoresis 05/23/2024 10:06:02 0.88 0.80-1.30 (g/dL) Final Gamma globulin/Protein.tota l [Pure mass fraction] in Serum or Plasma by Electrophoresis 05/23/2024 10:06:02 1.05 0.70-1.70 (g/dL) Final Monoclonal protein 05/23/2024 10:06:02 0.82 (g/dL) Final Protein Fractions [Interpretation] in Serum or Plasma by Electrophoresis Narrative 05/23/2024 10:06:02 Abnormal. 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 Final Performing Location [facility] - [address] [facility] [address]
--- OUTSIDE RECORDS SUMMARY | 2024-05-31 20:15 | External Medical Summary ---
Author Name Unknown Address Unknown Organization K09:[facility] [place] [address] Laboratory Report Ordering Provider Test Date Status YOLA CHURCH 05/23/2024 10:06:02 Final Observation Date Value Abnormality Reference (Units ) Status WBC, Total 05/23/2024 10:06:02 1.65 Below low normal 4. 00-10.80 (K/uL) Final RBC 05/23/2024 10:06:02 3.10 4.50-5.25 (M/uL) Final Hemoglobin 05/23/2024 10:06:02 9.9 Below low normal 14 .0-16.8 (g/dL) Final HCT 05/23/2024 10:06:02 30.4 Below low normal 40. 0-48.4 (%) Final MCV 05/23/2024 10:06:02 98.1 82.0-99.5 (fL) Final MCH 05/23/2024 10:06:02 31.9 27.0-34.0 (pg) Final MCHC 05/23/2024 10:06:02 32.6 32.0-36.0 (g/dL) Final RDW 05/23/2024 10:06:02 19.6 11.5-15.5 (%) Final Platelets 05/23/2024 10:06:02 544 Above high normal 14 0-400 (K/uL) Final MPV 05/23/2024 10:06:02 10.2 6.6-11.1 ( fL) Final Performing Location [facility] [place] [address]
--- OUTSIDE RECORDS SUMMARY | 2024-05-31 20:15 | External Medical Summary ---
Author Name Unknown Address Unknown Organization K09:[facility] [place] [place] [address] Laboratory Report Ordering Provider Test Date Status CL S[place]IN 05/23/2024 10:06:02 Final Warfarin Therapy
INR: 2 .0-3.0 conventional anticoagulation
INR: 2.5- 3.5 high intensity anticoagulation Observation Date Value Abnormality Reference (Units ) Status PT 05/23/2024 10:06:02 19.7 Above high normal 11 .6-15.2 (seconds) Final INR 05/23/2024 10:06:02 1.7 Above high normal 0. 8-1.2 Final Performing Location [facility] [place] [address]
--- OUTSIDE RECORDS SUMMARY | 2024-05-31 20:15 | External Medical Summary | Summary of Care ---
Author Name Unknown Organization [facility] Address [address] [place] [address] Phone [phone] Care Team Providers Care Architectural Draftsman Name Role Phone Rahul Tucker MD Primary Care Provide r Reason for Visit * Reason Comments Medication Management Encounter Details Date Type Department Care Team (Late st Contact Info) Description 05/24/2024 9:00 AM [facility] Pharmacy Pharmacy Hematology Oncology [facility] [address] [place] [address] [facility] Hem/Onc [address] [place], [place] [id number] Light chain (AL) amyloidosis (HCC)* Allergies Active [...] (Prevnar) 06/17/2014 Pneumococcal Conjugate Vacci ne, 20-valent ([id number]) 02/15/2022 Pneumococcal Polysaccharide PPV23 (Pneumovax) 05/19/2016 Seasonal [...] this encounter Progress Notes * Eulalia Lawrence, [facility] - 05/22/2024 3:00 PM EST MEDICATION THERAPY MANAGEMENT CYCLOPHOSPHAMIDE TREATMENT PROGRESS NOTE Dre Vera [phone] Patient Phone Numbers Preferred Lab: [facility] Specialty Pharmacy: [facility] Communication: Chart review Treatment: Medication: Cyclophosphamide (Cytoxan) Indication/Staging/Diagnosis Code: 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 Jeane Dyson Additional Therapy: Bortezomib Daratumumab Dexamethasone Supportive Care Meds: Ondansetron Prochlorperazine Prophylactic Meds: Acyclovir Bisacodyl Miralax Senokot Docusate Relevant Chronic Medications: Category Medications Pertinent Notes Antihypertensives Torsemide 40mg daily Per PCP Anticoagulation ASA 81mg daily Pt hx Treatment History: none Treatment Dose Adjustment/Hold History: 05/05/24-05/22/24: treatment held for hospital admission 05/05/24: cyclophosphamide held Interval History: Admitted to [facility] 05/05 - 05/13 for fatigue, weakness, confusion Per OV 05/21/24, HOLD cyclophosphamide for 2nd cycle Changes to medication list since last visit? No Drug interaction assessment: Treatment plan and current medication list evaluated for drug-drug interactions. No clinically significant drug interaction identified Assessment and Plan: MTM to follow up after next OV to assess treatment plan Assessment of compliance: compliant Assessment of adverse effects attributed to drug therapy: N/A Dose adjustment needed based on lab or adverse drug reaction? Yes, HOLD Follow up: 05/30 OV/labs; 06/06 MTM [place], PharmD, BCOP Clinical Pharmacist, [facility] Oral Chemotherapy [facility] 05/22/2024, 3:03 PM Monitoring Parameters: Estimated CrCl ESRD - [...] Urinalysis Date Protein result Next Due 03/20/24 2323 (24 hour urine);' 929 Treatment Parameters Per PI Pertinent labs: N/A Time Spent on Encounter: 6 - 10 minutes Encounter Group: Hematology Encounter Interventions Item Category: Oral Chemotherapy Cyclophosphamide Problem/Rationale: Safety: Needs additional monitoring - Medication Requires monitoring Pharmacist Intervention(s): Medication held Magnitude of Intervention: Monitoring with no interventions (Level 0) documented in this encounter Plan of Treatment Upcoming Encounters Date Type Department Care Team (Late st Contact Info) Description 05/23/2024 10:00 AM EST Laboratory Laboratory Scenery [place] [facility] [address] [place] [phone] Shima, Lab Scenery [address] [place] [address] 05/23/2024 10:30 AM EST Hem/Onc Treatment Hematology/Oncology Treatment, [place] [address] [facility] [place] [phone] Shima, Chair 1 Hem Onc Scenery [address] [place] [address] 05/23/2024 5:40 PM EST Anticoagulation Pharmacy, [address] [place] [address] [place] [address] 05/30/2024 10:00 AM EST Laboratory Laboratory [facility] [place] [facility] [address] [place] [phone] Shima, Lab Scenery [address] [place] [address] 05/30/2024 11:00 AM EST Office Visit Hematology/Oncology [facility] [place] Yasmin Ronquillo [address] [place] [phone] Rebeca Aguillon CRNP [address] [facility] [place] [address] 05/30/2024 11:30 AM EST Hem/Onc Treatment Hematology/Oncology Treatment, [place] [address] [facility] [place] [phone] Shima, Chair 8 Hem Onc Scenery [address] [place] [address] 06/06/2024 9:00 AM EST Pharmacy Pharmacy Hematology Oncology [facility] [address] [place] [address] [facility] Hem/Onc [address] [place] [address] 07/17/2024 11:15 AM EDT Procedure Only Urology, [facility] [address] [facility] [place] [address] Duglas Tadeo MD [address] [place] [address] Scheduled Procedures Name Priority Associated Diagnoses Date/Ti [...] Advance Directives occurred with: Patient Care Teams Architectural Draftsman Relationship Specialty Start Date End Date Rahul Tucker MD [address] [place] [address] [place] [address] PCP - General Family Medicine 08/03/18 documented as of this encounter
--- OUTSIDE RECORDS SUMMARY | 2024-05-31 20:15 | External Medical Summary | Summary of Care ---
Author Name Unknown Organization [facility] Address [address] [place] [address] Phone [phone] Care Team Providers Care Machine Stapler Name Role Phone Rahul Tucker MD Primary Care Provide r Reason for Visit * Reason Comments Follow Up Appointment Encounter Details Date Type Department Care Team (Late st Contact Info) Description 05/21/2024 9:00 AM EST Office Visit Hematology/Oncology [facility] [address] [facility] [place] [phone] Brian Dyson MD [address] [place] [address] Light chain (AL) amyloidosis (HCC)*; Diarrhea, unspecified type Allergies Active Allergy Reactions Criticality Noted Date Comments Azithromycin Hives 12/10/2010 documented as of this encounter (statuses as of 05/21/2024) Medications Finasteride 5 MG Oral Tablet (Proscar) [...] as of this encounter (statuses as of 05/21/2024) Active Problems Problem Noted Date Diagnosed Date [...] as of this encounter (statuses as of 05/21/2024) Resolved Problems Problem Noted Date Diagnosed Date Resolved Date CKD (chronic kidney disease) stage 5, GFR less than 15 ml/min 03/28/2024 04/22/2024 Carpal tunnel syndrome 06/17/201402/08 Allergic rhinitis 06/17/2014 02/08/2018 Adjustment disorder with depressed mood 12/10/2013 07/20/2017 Eczema 06/22/2012 07/20/2017 Epileptic seizure 12/10/2010 08/16/2018 documented as of this encounter (statuses as of 05/21/2024) Immunizations Name Administration Dates Next Due Pneumococcal Conjugate Vacc, 13 Valent (Prevnar) 06/17/2014 Pneumococcal Conjugate Vacci ne, 20-valent ([id number]) 02/15/2022 Pneumococcal Polysaccharide PPV23 (Pneumovax) 05/19/2016 Seasonal [...] Sign Reading Time Taken Comments Blood Pressure 71/46 05/21/2024 8:50 AM EST Pulse 72 05/21/2024 8:50 AM EST Temperature 36.2 C (97.2 F) 05/21/2024 8:50 AM ES T Respiratory Rate - - Oxygen Saturation 93% 05/21/2024 8:50 AM EST Inhaled Oxygen Concentration - - Weight 87.7 kg (193 lb 5.5 oz) 05/21/2024 8:50 A M EST Height - - Body Mass Index 27.74 03/17/2024 6:46 PM EST documented in this [...] Progress Notes * Brian Dyson MD - 05/21/2024 9:00 AM EST Hematology/Oncology Outpatient Consult Note [facility] [place] [address] [facility] [place] [address] BETY VERA MR # [id number] :1950 73 years old male, Date of [...] possible autonomic neuropathy, liver involvement CURRENT TREATMENT: - systemic chemotherapy with Velcade, cyclophosphamide, Darzalex Faspro and the Decadron. ( startedon 05/02/2024). He will have treatment on the following day of the dialysis. ( he is on dialysis 3 days a week, Monday, Monday, Monday). He was on heparin prophylaxis, now he is on oral Coumadin prophylaxis as he is at high-risk for thrombotic complications. He was also on acyclovir physis but because of mantle status, planning to discontinue acyclovir prophylaxis at this time. DIAGNOSTIC WORKUP: He says that he had a COVID-19 infection earlier in March of 2023 and he is not feeling quite well since then. In June of 2023, he had low blood pressure, he was passing out, he was seen at [facility] ER, CT head was unremarkable, CT chest with PE protocol on 06/14/2023: Unremarkable, normal cardiac size noted, no pericardial effusion. No PE. Subcentimeter mediastinal lymph nodes noted. Once again he was admitted in October 2023 for increasing leg edema, there was no evidence of DVT on Doppler evaluation CT scan of the abdomen pelvis with contrast on 11/19/2023 at [facility] showed findings suggestive of nodular counter of the liver consistent with cirrhosis, no liver or spleen masses. Blood workup showed normal WBC, normal hemoglobin level, Platelet count is slightly higher side around 450 to 274172 range. Urine showed significant protein. (4+). 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 (earlier he had unsuccessful revascularization with atherectomy, WIRE TECHNICIAN, stentingand the tPA infusion ) - Subsequently he was transferred at [facility] because of worsening renal failure, underwent kidney biopsy, it showed findings suggestive of AL amyloidosis He is admitted at [facility] in early and mid- May 2023 for altered Mental status, reviewed [facility] records, brain imaging was negative for any acute findings, EEG was somewhat abnormal, seen by Neurology, infection workup was negative, gradual improvementof the Mental status noted. CT chest showed small volume pulmonary embolism noted ( 05/06/2024). INTERVAL HISTORY: He has come the clinic for the follow-up, came to clinic in a wheelchair, his main problem is left ambulated foot local pain, he was on gabapentin which was discontinued earlier because of poor Mental status, he took oxycodone without much benefit, feels nauseous, no vomiting, no fever at this time, feeling quite weak and tired, previously noted leg edema has improved. He is having hemodialysis 3 days a week, yesterday he could not go because he was not feeling quitewell and his could not transferred him to the dialysis center. Past Medical History: Diagnosis Date Buerger's disease [...] TUNNEL SURGERY 2011 right 2011 COLONOSCOPY 06/03/2015 MI--polyps--benign DENTAL SURGERY PROCEDURE NEC [place] teeth removed EGD, FLEXIBLE, DIAGNOSTIC 12/11/2023 mild portal hypertensive gastropathy/recall 2 years/ESOPHAGOGASTRODUODENOSCOPY (EGD), FLEXIBLE, TRANSORAL, DIAGNOSTIC performed by Dolores Edmonds MD at ENDOSCOPY [facility] IR BIOPSY 03/21/2024 IR VENOUS ACCESS NON-MEDIPORT 03/21/2024 PATIENT EDU, LUMBAR LAMINECTOMY 1986 Back surgery at [facility] [place] ARTHROPLASTY GLENOHUMERAL JOINT TOTAL SHOULDER Right 11/2021 [...] by mouth in the morning. 30Capsule 1 cycloPHOSphamide 50 MG Oral Capsule (Cytoxan) Take 6 capsules by mouth once a week. 24 Capsule 5 Warfarin Sodium 5 MG Oral Tablet (Coumadin) Take up to 1 tablet by mouth daily as directed by anticoagulation clinic. 30 Tablet 5 Gabapentin 100 MG Oral Capsule (Neurontin) Take 1 capsule in AM and 1 capsule in afternoon. Gabapentin 300 MG Oral Capsule (Neurontin) Take 1 Capsule by mouth at bedtime. 90 Capsule 3 Torsemide 20 MG Oral Tablet (Demadex) Take 3 Tablets by mouth in the morning. 90 Tablet 5 Midodrine HCl 10 MG Oral Tablet (Proamatine) Take 1 Tablet by mouth in the morning and 1 Tablet at noon and 1 Tablet in the evening. 60 Tablet 3 oxyCODONE HCl 5 MG Oral Tablet (Oxy IR) Take 1 Tablet by mouth at bedtime as needed for Pain, Severe. 20 Tablet 0 Thiamine 100 MG OR Tablet Take 1 Tablet by mouth in the morning. Folic Acid 1 MG Oral Tablet Take 1 Tablet by mouth in the morning. Advanced Probiotic Oral Capsule Take by mouth. No current facility-administered medications for this visit. [...] Stability Do you currently live in a fpc or have no steady place to sleep [...] years): Not on file On Exam: BP 71/46 (BP Site: Left Arm, BP Position: Sitting, BP Cuff Size: Large) | Pulse 72 | Temp 36.2 C (97.2 F) (Tympanic) | Wt 87.7 kg (193 lb 5.5 oz) | SpO2 93% | BMI 27.74 kg/m | BSA 2.08 m Constitutional: Patient is alert, cooperative and oriented x 3. Thin built man, Patient is in no acute [...] Reviewed blood workup done on 04/19/2024: -WBC 03393, Hemoglobin and hematocrit - 9.1/27.9, Platelet count of 719435 -MCV 94 -BUN/Creat: 27/2.8, AST 104, ALT 44, alkaline phosphatase > 1200, bilirubin level 0.6. Blood workup done on 05/21/2024: -WBC 2700, Hemoglobin and hematocrit - 10.5/32, MCV 96, Platelet count 225110 -BUN/Creat: 96/5.7, Calcium 8.2, AST 58, ALT 28, alkaline phosphatase 791, bilirubin level 0.2. IMAGING: Echocardiogram done on 03/26/2024: -LV ejection [...] worseningrenal function test, he was transferred at [facility], had kidney biopsy which confirmed the diagnosis of AL amyloidosis, reviewed the bone marrow findings with him and his . He had left leg [id number] amputation for arterial clot. I reviewed with them regarding the diagnostic workup, has significantly elevated pro BNP around 10,000 range, currently on hemodialysis 3 days a week. Now started him on following chemotherapy, received 1 cycle on 05/02/2024. -cyclophosphamide 150 mg/m every weekly by mouth (50% dose reduction because of ongoing hemodialysis ) -Velcade 1.3 mg/m every weekly -Darzalex Faspro every weekly for 8 weeks followed by every 2 weekly for additional x 8 doses and then every 4 weekly - Decadron 40 mg every weekly ( p.o. ). Few days after that, he had altered Mental status, he was admitted at [facility],brain imaging was negative, had evidence of pulmonary embolism on CT chest, currently he is on oralCoumadin. I reviewed his blood workup done today, improvement of hemoglobin level noted, Planning for 2nd cycle of treatment this week on , would like to hold cyclophosphamide during that time, will continue Velcade, Darzalex Faspro and Decadron. He would like to hold acyclovir at this time Diarrhea present, he is using Imodium. I would like to start Lomotil for the symptomatic treatment. he will continue Coumadin for recent pulmonary embolism. I am planning to see him in about [address] Brian Dyson Hem/Onc (This note was [...] Notes * Emilia Rai MED ASSIST - 05/21/2024 8:57 AM EST Patient identifed by name and birthdate Do you have any concerns about pain management for today's visit? Yes. Patient instructed to discuss pain concerns with provider during the visit today Living Will or Advance Directive for Health Care as noted on the problem list. [facility] is a way you can talk to your provider on line through e-mail. Would you like to sign up? I can activate it for you? ALREADY ACTIVE Filed Vitals: 05/21/24 0850 BP: 71/46 Pulse: 72 Temp: 36.2 C (97.2 F) TempSrc: Tympanic SpO2: 93% Weight: 87.7 kg (193 lb 5.5 oz) Patient was instructed to not get up on the exam table/exam chair until directed and assisted by their provider; patient is to remain seated in the chair/ wheelchair/ exam table/ exam chair for fall prevention and safety reasons. Patient is aware to have assistance to step down off exam table/exam chair with personnel. Patient voiced full comprehension of instructions. Pt was admitted to the hospital two weeks ago for tremors,confusion,diarrhea,dehydration. Pt stayedfor one week. Pt stated he was in significant pain daily and nothing helps it. documented in this encounter Plan of Treatment Upcoming Encounters Date Type Department Care Team (Latest Contact Info) Description 05/21/2024 5:30 PM EST Anticoagulation Pharmacy, [address] [place] [address] [place] [address] Anticoagulation management encounter*; GARY (acute kidney injury) (HCC); Light chain (AL) amyloidosis (HCC) 05/23/2024 10:00 AM EST Laboratory Laboratory [facility] [place] [address] [place] [phone] [place], Lab Scenery 05/23/2024 10:30 AM EST Hem/Onc Treatment Hematology/Oncolog y Treatment, [place] [address] [place] [phone] [place], Chair 1 Hem Onc Scenery [address] [place] [address] 05/23/2024 5:40 PM EST Anticoagulation Pharmacy, [address] [place] [address] [place] [address] 05/24/2024 9:00 AM EST Pharmacy Pharmacy Hematology Oncology [facility] [address] [place] [address] [facility] Hem/Onc [facility] [place] [address] 05/30/2024 10:00 AM EST Laboratory Laboratory [facility] [place] [address] [place] [phone] [place], Lab Scenery 05/30/2024 11:00 AM EST Office Visit [facility] [place] [address] [place] [phone] Rebeca Aguillon CRNP [address] [place] [address] 05/30/2024 11:30 AM EST Hem/Onc Treatment Hematology/Oncolog y Treatment, [place] [address] [facility] [address] [place] [phone] [place], Chair 8 Hem Onc Scenery [address] [place] [address] 07/17/2024 11:15 AM EDT Procedure Only Urology, [facility], [place] [address] [facility] [place] [address] Duglas Tadeo MD [address] [facility] [place] [id number] Scheduled Procedures Name Priority Associated Diagnoses Date/Ti [...] Diagnosis Light chain (AL) amyloidosis (HCC)- Primary Diarrhea, unspecified type Anticoagulation management encounter- Primary Encounter for therapeutic [...] Advance Directives occurred with: Patient Care Teams Machine Stapler Relationship Specialty Start Date End Date Rahul Tucker MD [address] [place] [address] [place] [address] PCP - General Family Medicine 08/03/18 documented as of this encounter"
--- OUTSIDE RECORDS SUMMARY | 2024-05-31 20:15 | External Medical Summary ---
Author Name Unknown Address Unknown Organization K09:[facility] [place] [address] Laboratory Report Ordering Provider Test Date Status YOLA CHURCH 05/23/2024 10:06:02 Final Observation Date Value Abnormality Reference (Units ) Status BUN 05/23/2024 10:06:02 64 Above high normal 6-20 (mg/dL) Final Creatinine 05/23/2024 10:06:02 3.8 Above high normal 0.6-1.2 (mg/dL) Final Glomerular filtration rate/1.73 sq M.predicted [Volume Rate/Area] in Serum, Plasma or Blood by Creatinine-based formula (CKD-EPI) 05/23/2024 10:06:02 16 Below low normal >=60 (mL/min) Final eGFR is calculated based on the CKD-EPI 2020 equation. Sodium 05/23/2024 10:06:02 138 135-146 (m mol/L) Final Potassium 05/23/2024 10:06:02 3.6 3.5-5.1 (m mol/L) Final Cl 05/23/2024 10:06:02 98 98-107 (mm ol/L) Final CO2 05/23/2024 10:06:02 25 22-32 (mmo l/L) Final Anion gap 05/23/2024 10:06:02 15 7-15 (mmol /L) Final Glucose 05/23/2024 10:06:02 146 Above high normal 70 -120 (mg/dL) Final Albumin 05/23/2024 10:06:02 1.9 Below low normal 3.8 -5.0 (g/dL) Final AST (Aspartate aminotransferase) 05/23/2024 10:06:02 54 Above high normal 10-50 (U/L) Final Alk Phos 05/23/2024 10:06:02 847 Above high normal 35 -130 (U/L) Final Bilirubin, Total 05/23/2024 10:06:02 0.2 <=1 .2 (mg/dL) Final Calcium 05/23/2024 10:06:02 8.3 Below low normal 8.4 -10.2 (mg/dL) Final Protein 05/23/2024 10:06:02 5.3 Below low normal 6.0 -8.3 (g/dL) Final ALT (Alanine aminotransferase) 05/23/2024 10:06:02 28 10-50 (U/L) Sarthak baez Performing Location [facility] [address] [place] [address]
--- OUTSIDE RECORDS SUMMARY | 2024-05-31 20:15 | External Medical Summary | Summary of Care ---
Author Name Unknown Organization [facility] Address [address] [place] [address] Phone [phone] Care Team Providers Care Ingredient Mixer Name Role Phone Rahul Tucker MD Primary Care Provide r Reason for Visit * Reason Comments Outpatient Testing Encounter Details Date Type Department Care Team (Late st Contact Info) Description 05/23/2024 10:00 AM EST Laboratory Laboratory [facility] [place] [address] [place] [phone] [facility] Lab Scenery [address] [place] [address] Light chain (AL) amyloidosis ([facility]); GARY (acute kidney injury) ([facility]); Anticoagulation management encounter Allergies Active Allergy Reactions [...] Tablet before bedtime. 180 Tablet 1 04/11/20 Active Additional Information Patient not taking.Reported on [...] (Prevnar) 06/17/2014 Pneumococcal Conjugate Vacci ne, 20-valent ([id number]) 02/15/2022 Pneumococcal Polysaccharide PPV23 (Pneumovax) 05/19/2016 Seasonal [...] Description 05/23/2024 10:30 AM EST Hem/Onc Treatment Hematology/Oncology Treatment, [place] [address] [place] [phone] [place], Chair 1 Hem Onc Scenery [address] [place] [address] Arrived 05/23/2024 5:40 PM EST Anticoagulation Pharmacy, [address] [place] [address] [place] [address] 05/24/2024 9:00 AM EST Pharmacy Pharmacy Hematology Oncology [address] [address] [facility] Hem/Onc [address] [place] [address] Light chain (AL) amyloidosis (HCC)* 05/30/2024 10:00 AM EST Laboratory Laboratory [facility] [address] [place] [phone] [place], Lab [facility] 200 [facility] [place], [place] [address] 05/30/2024 11:00 AM EST Office Visit Hematology/Oncology [facility] [address] [place] [phone] Rebeca Aguillon CRNP [address] [facility] [place] [address] 05/30/2024 11:30 AM EST [facility] [address] [facility], [place] [address] [place], Chair [address] Hem Onc [address] [place], [place] [address] 06/06/2024 9:00 AM EST Pharmacy Pharmacy Hematology Oncology [address] [address] [facility] Hem/Onc [address] [place] [address] 07/17/2024 11:15 AM EDT Procedure Only Urology, [facility] 132 [facility] [place] [address] Duglas Tadeo MD [address] [place] [address] Pending Results Name Type Priority Associated Diagnoses Date /Time CBC WITH WBC DIFFERENTIAL Lab STAT Light chain (AL) amyloidosis (HCC) 05/23/2024 10:06 AM EST COMPREHENSIVE METABOLIC PANEL Lab STAT Light chain (AL) amyloidosis (HCC) 05/23/2024 10:06 AM EST IMMUNOGLOBULIN QUANTITATIVE Lab STAT Light chain (AL) amyloidosis (HCC) 05/23/2024 10:06 AM EST SERUM FREE LIGHT CHAINS Lab STAT Light chain (AL) amyloidosis (HCC) 05/23/2024 10:06 AM EST SERUM PROTEIN ELECTROPHORESIS REFLEX PROFILE Lab STAT Light chain (AL) amyloidosis (HCC) 05/23/2024 10:06 AM EST PT INR Lab Routine GARY (acute kidney injury) (HCC) Anticoagulation management encounter 05/23/2024 10:06 AM EST CBC Lab STAT Light chain (AL) amyloidosis (HCC) 05/23/2024 10:06 AM EST DIFFERENTIAL, AUTOMATED Lab STAT Light chain (AL) amyloidosis (HCC) 05/23/2024 10:06 AM EST Scheduled Procedures Name Priority Associated [...] management encounter Encounter for therapeutic drug monitoring Light chain (AL) amyloidosis (HCC)- Primary documented in this encounter Advance Directives * Full Code (Latest Code Status on File) Date Activated Date Inactivated Comments 03/17/2024 7:37 PM 03/29/2024 7:58 PM This order reflects the patients wishes and were consensually agreed upon. Question Answer Comments Discussion of Advance Directives occurred with: Patient Care Teams Ingredient Mixer Relationship Specialty Start Date End Date Rahul Tucker MD [address] [place] [address] [place] [address] PCP - General Family Medicine 08/03/18 documented as of this encounter
--- OUTSIDE RECORDS SUMMARY | 2024-05-31 20:15 | External Medical Summary ---
Author Name Unknown Address Unknown Organization K09[facility] [address] Laboratory Report Ordering Provider Test Date Status YOLA CHURCH 05/23/2024 10:06:02 Final Observation Date Value Abnormality Reference (Units ) Status Nucleated erythrocytes/100 leukocytes [Ratio] in Blood by Automated count 05/23/2024 10:06:02 Final Schistocytes 05/23/2024 10:06:02 Few Abnormal None Seen Final Target cells [Presence] in Blood by Light microscopy 05/23/2024 10:06:02 Moderate Abnormal None Seen Final Giant platelets [Presence] in Blood by Light microscopy 05/23/2024 10:06:02 Present Abnormal None Seen Final Performing Location [facility] [address]
--- OUTSIDE RECORDS SUMMARY | 2024-05-31 20:15 | External Medical Summary ---
Author Name Unknown Address Unknown Organization K01:[facility] [address] [place] [address] Laboratory Report Ordering Provider Test Date Status YOLA CHURCH 05/23/2024 10:06:02 Final Observation Date Value Abnormality Reference (Units ) Status IgG 05/23/2024 10:06:02 0040 446-9410 ( mg/dL) Final IgA 05/23/2024 10:06:02 112 70-400 (mg /dL) Final IgM 05/23/2024 10:06:02 71 40-230 (mg /dL) Final Performing Location [facility] - [address] [place] [address]
--- OUTSIDE RECORDS SUMMARY | 2024-05-31 20:15 | External Medical Summary | Summary of Care ---
Author Name Unknown Organization [facility] Address [address] [place] [address] Phone [phone] Care Team Providers Care Circuit Court Magistrate Name Role Phone Rahul Tucker MD Primary Care Provide r Reason for Visit * Reason Onset Date Comments Hospital Follow-Up 05/13/2024 Encounter Details Date Type Department Care Team (Late st Contact Info) Description 05/13/2024 Telephone Urology Geo Larios [address] [place] [address] Duglas Tadeo MD 27 [place] [phone] Hospital Follow-Up Allergies Active Allergy Reactions Criticality [...] (Prevnar) 06/17/2014 Pneumococcal Conjugate Vacci ne, 20-valent ([id number]) 02/15/2022 Pneumococcal Polysaccharide PPV23 (Pneumovax) 05/19/2016 Seasonal [...] encounter Miscellaneous Notes * Telephone Encounter - Duglas Tadeo MD - 05/14/2024 11:41 AM EST If wants to perform CIC the patient is bothered with the catheter she can proceed. Thanks, LAURENCE * Telephone Encounter - Libby De La [...] 11:[address] Tadeo: Spoke with Monica pt's nurse. Patient's is stating patient is very uncomfortable from indewlling catheter and would like HH to remove today. 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 Monica is asking for an order to remove catheter during her visit withthem today. Please place order if agreeable. She will be with patient today [phone]. Thank you, Yelenashorty Anderson: [phone] Sammymijaneen : [phone] * Telephone Encounter - Libby De La Cruz LPN - 05/14/2024 9:29 AM EST Current pt of Dr Tadeo. Should be seen within 1 month of catheter placement by provider or PA for hospital follow up and catheter discussion / removal. Thank you Yelena * Telephone Encounter - Katie Nicole RN - 05/13/2024 3:14 PM EST Dre Vera was discharged from [facility] on 05/13/24. Please see the following recommendations for follow up care. As discussed at the bedside, follow-up with urology in 1 week time upon discharge for voiding trialand possible removal of Sousa catheter. documented in this encounter Plan of Treatment Upcoming Encounters Date Type Department Care Team (Late st Contact Info) Description 05/23/2024 10:00 AM EST Laboratory Laboratory Scenery State Yasmin Ronquillo [address] [place] [phone] Tej Ronquillo Scenery [address] [place] [address] 05/23/2024 10:30 AM EST Hem/Onc Treatment [place]ology[place] 200 [facility] [place] [phone] Shima, Chair 1 Hem Onc Scenery [address] [place] [address] 05/23/2024 5:40 PM EST Anticoagulation Pharmacy, [address] [place] [address] [place] [address] 05/24/2024 9:00 AM EST Pharmacy Pharmacy Hematology Oncology [place] [address] [place] [address] [facility] Hem/Onc [facility] [place] [address] 05/30/2024 10:00 AM EST Laboratory Laboratory [facility] [place] [address] [place] [phone] Shima, Lab Scene 200 [facility] [place] [address] 05/30/2024 11:00 AM EST Office Visit Hematology/Oncology [facility] [place] [address] [place] [phone] Rebeca Aguillon CRNP 400 [facility] [address] 05/30/2024 11:30 AM EST Hem/Onc Treatment [place]ology/[place]cology [place] [address] [place] [phone] Shima, Chair 8 Hem Onc Scenery [address] [place] [address] 07/17/2024 11:15 AM EDT Procedure Only Urology, [facility] 132 [facility] [place] [address] Duglas Tadeo MD 27 [place] [address] Scheduled Procedures Name Priority Associated Diagnoses Date/Ti [...] Advance Directives occurred with: Patient Care Teams Circuit Court Magistrate Relationship Specialty Start Date End Date Rahul Tucker MD [address] [place] [address] [place] [phone] PCP - General Family Medicine 08/03/18 documented as of this encounter
--- OUTSIDE RECORDS SUMMARY | 2024-05-31 20:15 | External Medical Summary | Summary of Care ---
Author Name Unknown Organization [facility] Address [address] [place] [facility] [place] [address] Phone [phone] Care Team Providers Care Heat And Vent Aircraft Mechanic Name Role Phone Rahul Tucker MD Primary Care Provide r Reason for Visit * Reason Comments Dosage Adjustment Via Phone (anticoag Cl inic) Encounter Details Date Type Department Care Team (Latest Contact Info) Description 05/21/2024 5:30 PM [facility] Anticoagulation Pharmacy, [address] [place] [address] [place] [address] Anticoagulation management encounter*; GARY (acute kidney injury) (HCC); Light chain (AL) amyloidosis ([facility]) Allergies Active Allergy Reactions Criticality Noted Date [...] (Prevnar) 06/17/2014 Pneumococcal Conjugate Vacci ne, 20-valent ([id number]) 02/15/2022 Pneumococcal Polysaccharide PPV23 (Pneumovax) 05/19/2016 Seasonal [...] this encounter Progress Notes * Brittney Villela, [facility] - 05/21/2024 3:23 PM EST Images from the original note were not included. Medication Therapy Disease Management - Anticoagulation Patient: Dre Hitchcock Jody | : 1950 Subjective Contacts Contact Date/Time Type Contact Phone/Fax 05/21/2024 03:24 PM EST Phone (Outgoing) Bina Vera (Emergency Contact) [phone] (M) Patient-Reported Symptoms: Patient Findings Negatives: Signs/symptoms of thrombosis, Signs/symptoms of bleeding, Change in health, Change in alcohol use, Change in activity, Upcoming invasive procedure, Missed doses, Extra doses, Change in medications, Change in diet/appetite, Bruising Objective Current Warfarin Dose As of 05/21/2024 Warfarin maintenance plan: No maintenance plan INR Result As of 05/21/2024 INR goal: 2.0-3.0 INR used for dosin.5 (05/21/2024) Assessment & Plan Warfarin Plan As of 05/21/2024 Full warfarin instructions: 05/21: 5 mg; 05/22: 5 mg Next INR check: 05/23/2024 Repeat PT/INR in 2 day(s) Weekly dose: establishing Additional Dosing Information: Called and spoke with Rosie NUNO. Canceled upcoming INR draw for 05/23 as patient will plan to complete labs at prior to treatment. Description Pt would like to consider a home INR machine -- advised can try to submit paperwork after ~1 month of therapy (per most insurance requirements) I spent a total of 20-29 minutes (exact time 20 mins) on the date of service in preparation, delivery, and documentation of the care provided to Dre Vera excluding any time spent in the performance of separately billed services or time spent by another provider/QHP. Brittney Villela [facility] Clinical Pharmacist 05/21/2024, 3:23 PM documented in this encounter Plan of Treatment Upcoming Encounters Date Type Department Care Team (Late st Contact Info) Description 05/23/2024 10:00 AM EST Laboratory [facility] [address] [place] [phone] Shima, Lab Scenery 05/23/2024 10:30 AM EST Hem/Onc Treatment Hematology/Oncology Treatment, [place] 200 [facility] [place] [phone] Shima, Chair 1 Hem Onc [facility] 200 [facility] [place] [address] 05/23/2024 5:40 PM EST Anticoagulation Pharmacy, [address] [place] [address] [place] [address] 05/24/2024 9:00 AM EST Pharmacy Pharmacy Hematology Oncology [facility] [place] [address] [place] [address] [facility] Hem/Onc [address] [place] [address] 05/30/2024 10:00 AM EST Laboratory Laboratory [facility] [place] [address] [place] [phone] [place], Lab Scenery 05/30/2024 11:00 AM EST Office Visit Hematology/Oncology [facility] [place] [address] [place] [phone] Rebeca Aguillon CRNP 400 [facility] [place] [address] 05/30/2024 11:30 AM EST Hem/Onc Treatment Hematology/Oncology Treatment, [place] [address] [place] [phone] Shima, Chair 8 Hem Onc Scenery [address] [place] [address] 07/17/2024 11:15 AM EDT Procedure Only Urology, [facility] 132 [facility] [place] [address] Duglas Tadeo MD 27 [facility] [place] [address] Scheduled Procedures Name Priority Associated Diagnoses Date/Ti [...] Advance Directives occurred with: Patient Care Teams Heat And Vent Aircraft Mechanic Relationship Specialty Start Date End Date Rahul Tucker MD [address] [place] [address] [place] [address] PCP - General Family Medicine 08/03/18 documented as of this encounter"
--- OUTSIDE RECORDS SUMMARY | 2024-05-31 20:15 | External Medical Summary ---
Author Name Unknown Address Unknown Organization K01:[facility]ORY [facility] - [address] [facility] [address] [facility] [address] Laboratory Report Ordering Provider Test Date Status YOLA CHURCH 05/23/2024 10:06:02 Final Observation Date Value Abnormality Reference (Units ) Status Cesar Chavez light chains, Free, Serum 05/23/2024 10:06:02 79.68 Above high normal 3.30-19.40 (mg/L) Final Decreased kidney function ca n cause an increase in serum Cesar Chavez Free Light Chains. For individuals with decreased kidney function, the following reference intervals apply:

eGFR 45-59: 7.8-83.6 mg/L
eGFR 30-44: 8.8-103.3 mg/L
eGFR <30: 11.7-265.1 mg/L Lambda light chains, free, Serum 05/23/2024 10:06:02 29.27 Above high normal 5.71-26.30 (mg/L ) Final Decreased kidney function ca n cause an increase in serum Lambda Free Light Chains. For individuals with decreased kidney function, the following reference intervals apply:

eGFR 45-59: 7.3-65.1 mg/L
eGFR 30-44: 8.2-73.2 mg/L
eGFR <30: 12.6-150.9 mg/L KAPPA LAMBDA F[facility] RATIO 05/23/2024 10:06:02 2.72 Above h igh normal 0.26-1.65 Final Decreased kidney function ca n cause an increase in serum Free Light Chain Ratio. For individuals with decreased kidney function, the following reference intervals apply:
eGFR 45-59: 0.46-2.62
eGFR 30-44: 0.48-3.38
eGFR <30: 0.54-3.30 Performing Location [facility] [address] [facility] [place] [address]
--- OUTSIDE RECORDS SUMMARY | 2024-05-31 20:16 | External Medical Summary | Summary of Care ---
Author Name Unknown Organization [facility] Address [address] [place] [address] Phone [phone] Care Team Providers Care Tamping Machine Operator Road Forms Name Role Phone Rahul Tucker MD Primary Care Provide r Reason for Visit * Reason Onset Date Comments Information 05/16/2024 Encounter Details Date Type Department Care Team (Late st Contact Info) Description 05/16/2024 Telephone Hematology/Oncology Treatment, [place] [address] [facility] [place] [phone] Brian Dyson MD 200 [place] [address] Information Allergies Active Allergy Reactions Criticality Noted Date Comments Azithromycin Hives 12/10/2010 documented as of this encounter (statuses as of 05/20/2024) Medications Finasteride 5 MG Oral Tablet (Proscar) [...] Pain, Severe. 20 Tablet 04/30/20 24 Active Thiamine 100 MG OR Tablet Take 1 Tablet by mouth in the morning. Active Folic Acid 1 MG Oral Tablet Take 1 Tablet by mouth in the morning. Active Advanced Probiotic Oral Capsule Take by mouth. Activ e documented as of this encounter (statuses as of 05/20/2024) Active Problems Problem Noted Date Diagnosed Date [...] as of this encounter (statuses as of 05/20/2024) Resolved Problems Problem Noted Date Diagnosed Date Resolved Date CKD (chronic kidney disease) stage 5, GFR less than 15 ml/min 03/28/2024 04/22/2024 Carpal tunnel syndrome 06/17/201402/08 Allergic rhinitis 06/17/2014 02/08/2018 Adjustment disorder with depressed mood 12/10/2013 07/20/2017 Eczema 06/22/2012 07/20/2017 Epileptic seizure 12/10/2010 08/16/2018 documented as of this encounter (statuses as of 05/20/2024) Immunizations Name Administration Dates Next Due Pneumococcal Conjugate Vacc, 13 Valent (Prevnar) 06/17/2014 Pneumococcal Conjugate Vacci ne, 20-valent ([id number]) 02/15/2022 Pneumococcal Polysaccharide PPV23 (Pneumovax) 05/19/2016 Seasonal [...] Telephone Encounter - Genoveva Diez RN - 05/17/2024 4:14 PM EST Patient discharged from [facility] 05/13/24. Called patients . She confirmed patient is HOLDING oral chemotherapy. She is concerned about patient getting future treatment. Offered appt with OUTSIDE SALES EXECUTIVE day of treatment- she states that she would really like him to see Dr Dyson. Reviewed schedule- Dr Negro only opening next week is Sunday 05/21 at 9am. Patients states that she would like to take this spot as she feels it is important for patientto talk to Dr Dyson about chemotherapy before proceeding. Advised I would ask PCP's office if they are able to reschedule appt. FP: is patients appt 05/21 able to be moved? He has dialysis Mon, Mon, Mon, but could do either Monday later in the day or . Thank you! documented in this encounter Plan of Treatment Upcoming Encounters Date Type Department Care Team (Late st Contact Info) Description 05/21/2024 8:30 AM EST Laboratory Laboratory Derrell Ronquillo [place] [address] [place] [phone] [place], Lab Scenery [address] [place] [address] 05/21/2024 9:00 AM EST Office Visit Hematology/Oncology Scenery [place] [address] [place] [phone] Brian Dyson MD [address] [place] [address] 05/21/2024 2:40 PM EST Office Visit Family Medicine [address] [phone] Merry Uriostegui MD [address] [place] [address] [place] [phone] 05/23/2024 10:00 AM EST Laboratory Laboratory Scenery [place] [address] [place] [phone] Shima, Lab Scenery 200 Scene [facility] [place] [address] 05/23/2024 10:30 AM EST Hem/Onc Treatment Hematology/Oncology Treatment, [place] [address] [place] [phone] Shima, Chair 1 Hem Onc Scenery 200 [facility] [place] [address] 05/23/2024 5:40 PM EST Anticoagulation Pharmacy, [address] [place] [address] [place] [address] 05/24/2024 9:00 AM EST Pharmacy Pharmacy Hematology Oncology [address] [address] [facility] Hem/Onc [address] [place] [address] 05/30/2024 10:00 AM EST Laboratory Laboratory [facility] [address] [place] [phone] [place], Lab Scenery 200 [facility] [place] [address] 05/30/2024 11:00 AM EST Office Visit Hematology/Oncology [facility] [place] [address] [place] [phone] Rebeca Aguillon CRNP 400 [facility] [place] [phone] 05/30/2024 11:30 AM EST Hem/Onc Treatment Hematology/Oncology Treatment, [place] [address] [place] [phone] Shima, Chair 8 Hem Onc [facility] 200 [facility] [place] [address] 07/17/2024 11:15 AM EDT Procedure Only Urology, [facility] 132 [facility] [place] [address] Duglas Tadeo MD [address] [facility] [place] [address] Scheduled Procedures Name Priority Associated Diagnoses Date/Ti [...] Advance Directives occurred with: Patient Care Teams Tamping Machine Operator Road Forms Relationship Specialty Start Date End Date Rahul Tucker MD [address] [place] [address] [place] [address] PCP - General Family Medicine 08/03/18 documented as of this encounter
--- OUTSIDE RECORDS SUMMARY | 2024-05-31 20:16 | External Medical Summary | Summary of Care ---
Author Name Unknown Organization [facility] Address [address] [place] [facility] [place] [facility] [place] [address] Phone [phone] Care Team Providers Care Rn Visiting Name Role Phone Rahul Tucker MD Primary Care Provide r Reason for Visit * Reason Comments Outpatient Testing Encounter Details Date Type Department Care Team (Late st Contact Info) Description 05/21/2024 8:30 AM EST Laboratory Laboratory [facility] [place] [address] [place] [phone] [facility] Light chain (AL) amyloidosis ([facility]); GARY (acute kidney injury) ([facility]); Anticoagulation management encounter Allergies Active [...] (Prevnar) 06/17/2014 Pneumococcal Conjugate Vacci ne, 20-valent ([id number]) 02/15/2022 Pneumococcal Polysaccharide PPV23 (Pneumovax) 05/19/2016 Seasonal [...] Team (Late st Contact Info) Description 05/21/2024 2:00 PM EST Office Visit Family Medicine [address] [place] [phone] Merry Uriostegui MD [address] [place] [address] [place] [phone] 05/21/2024 5:30 PM EST Anticoagulation Pharmacy, [address] [place] [address] [place] [address] 05/23/2024 10:00 AM EST Laboratory Laboratory Scenery [place] 200 [facility] [place] [phone] Shima, Lab Scenery 05/23/2024 10:30 AM EST Hem/Onc Treatment Hematology/Oncology Treatment, [place] 200 [facility] [place] [phone] Shima, Chair 1 Hem Onc Scenery 200 Scene [place] [address] 05/23/2024 5:40 PM EST Anticoagulation Pharmacy, [address] [place] [address] [place] [address] 05/24/2024 9:00 AM EST Pharmacy Pharmacy Hematology Oncology [facility] [address] [place] [address] [facility] Hem/Onc [address] [place] [address] 05/30/2024 10:00 AM EST Laboratory Laboratory [facility] [place] [address] [place] [phone] [place], Lab Scenery 05/30/2024 11:00 AM EST Office Visit Hematology/Oncology [facility] [place] [address] [place] [phone] Rebeca Aguillon CRNP 400 [place] [address] 05/30/2024 11:30 AM EST Hem/Onc Treatment Hematology/Oncology Treatment, [place] [address] [place] [address] Shiam, Chair 8 Hem Onc Scenery [address] [place] [address] 07/17/2024 11:15 AM EDT Procedure Only Urology, [facility] 132 [facility] [place] [address] Duglas Tadeo MD 27 [facility] [place] [address] Scheduled Procedures Name Priority Associated Diagnoses Date/Ti [...] Date/Time Associated Diagnosis Comments DIFFERENTIAL, AUTOMATED STAT 05/21/2024 8:44 AM EST Light chain (AL) amyloidosis (HCC) COMPREHENSIVE METABOLIC PANEL STAT 05/21/2024 8:44 AM EST Light chain (AL) amyloidosis (HCC) CBC STAT 05/21/2024 8:44 AM EST Light chain (AL) amyloidosis (HCC) PT INR Routine 05/21/2024 8:44 AM EST GARY (acute kidney injury) (HCC) Anticoagulation management encounter CBC STAT 05/21/2024 8:44 AM EST Light chain (AL) amyloidosis (HCC) documented in this encounter Results * (ABNORMAL) DIFFERENTIAL, AUTOMATED (05/21/2024 8:44 AM EST) WBC 2.77(L) 4.00 - 10.80 K/uL 05/21/2024 8:49 AM [facility] 56-02 Neutrophils % 49.1 40.0 - 75.0 % 05/21/2024 8:49 AM [facility] 56-02 Lymphocytes % 37.9 18.0 - 42.0 % 05/21/2024 8:49 AM [facility] 56-02 Monocytes % 12.6(H) 1.0 - 11.0 % 05/21/2024 8:49 AM [facility] 56-02 Eosinophils % 0.0 0.0 - 6.0 % 05/21/2024 8:49 AM [facility] 56-02 Basophils % 0.4 0.0 - 2.0 % 05/21/2024 8:49 AM [facility] 56-02 Absolute Neutrophils 1.36(L) 1.80 - 7.70 K/uL 05/21/2024 8:49 AM [facility] 56-02 Absolute Lymphocytes 1.05 1.00 - 4.80 K/ul 05/21/2024 8:49 AM [facility] 56-02 Absolute Monocytes 0.35 0.00 - 1.10 K/uL 05/21/2024 8:49 AM [facility] 56-02 Absolute Eosinophils 0.00 0.00 - 0.70 K/uL 05/21/2024 8:49 AM [facility] 56-02 Absolute Basophils 0.01 0.00 - 0.20 K/uL 05/21/2024 8:49 AM [facility] 56-02 Blood Venous blood specimen / Unknown Venipuncture / Unknown 05/21/2024 8:44 AM EST 05/21/2024 8:45 AM EST us Brian Dyson MD LAB BLOOD ORDERABLES Final Res ult [facility] 56-[address] [place] [address] * (ABNORMAL) CBC (05/21/2024 8:44 AM EST) WBC 2.77(L) 4.00 - 10.80 K/uL 05/21/2024 8:49 AM [facility] 56 RBC 3.32 4.50 - 5.25 M/uL 05/21/2024 8:49 AM [facility] 56- HGB 10.5(L) 14.0 - 16.8 g/dL 05/21/2024 8:49 AM [facility] 56 HCT 32.0(L) 40.0 - 48.4 % 05/21/2024 8:49 AM [facility] 56 MCV 96.4 82.0 - 99.5 fL 05/21/2024 8:49 AM [facility] 56 MCH 31.6 27.0 - 34.0 pg 05/21/2024 8:49 AM [facility] 56 MCHC 32.8 32.0 - 36.0 g/dL 05/21/2024 8:49 AM [facility] 56 RDW 18.8 11.5 - 15.5 % 05/21/2024 8:49 AM [facility] 56 PLT 492(H) 140 - 400 K/uL 05/21/2024 8:49 AM [facility] 56 MPV 10.2 6.6 - 11.1 fL 05/21/2024 8:49 AM [facility] Blood Venous blood specimen / Unknown Venipuncture / Unknown 05/21/2024 8:44 AM EST 05/21/2024 8:45 AM EST us Brian Dyson MD LAB BLOOD ORDERABLES Final Res ult [facility] [address] [place] [address] * (ABNORMAL) PT INR (05/21/2024 8:44 AM EST) Prothrombin Time 18.7(H) 11.6 - 15.2 seconds 05/21/2024 9:05 AM [facility] 56 INR 1.5(H) 0.8 - 1.2 05/21/2024 9:05 AM [facility] 56 Blood Venous blood specimen / Unknown Venipuncture / Unknown 05/21/2024 8:44 AM EST 05/21/2024 8:45 AM EST Narrative [facility] 56- - 05/21/2024 9:05 AM EST Warfarin Therapy INR: 2.0-3.0 conventional anticoagulation INR: 2.5-3.5 high intensity anticoagulation Brittney Villela [facility] LAB BLOOD ORDERABLES Final Result [facility] [address] [place], [place] [phone] * (ABNORMAL) COMPREHENSIVE METABOLIC PANEL (05/21/2024 8:44 AM EST) BUN 96(H) 6 - 20 mg/dL 05/21/2024 9:36 AM [facility] Comment:Results rechecked. CREATININE 5.7(H) 0.6 - 1.2 mg/dL 05/21/2024 9:36 AM [facility] Comment:Results rechecked. EGFR 10(L) >=60 mL/min 05/21/2024 9:36 AM [facility] Comment:eGFR is calculated b ased on the CKD-EPI 2020 equation. SODIUM 140 135 - 146 mmol/L 05/21/2024 9:36 AM [facility] POTASSIUM 3.2(L) 3.5 - 5.1 mmol/L 05/21/2024 9:36 AM [facility] CHLORIDE 100 98 - 107 mmol/L 05/21/2024 9:36 AM [facility] 56 CO2 24 22 - 32 mmol/L 05/21/2024 9:36 AM [facility] 56 ANION GAP 16(H) 7 - 15 mmol/L 05/21/2024 9:36 AM [facility] GLUCOSE 99 70 - 120 mg/dL 05/21/2024 9:36 AM [facility] 56 Albumin 1.7(L) 3.8 - 5.0 g/dL 05/21/2024 9:36 AM [facility] 56 Comment:Results rechecked. AST 58(H) 10 - 50 U/L 05/21/2024 9:36 AM EST [facility] 56- Alkaline Phosphatase 791(H) 35 - 130 U/L 05/21/2024 9:36 AM EST [facility] 56- Bilirubin, Total 0.2 <=1.2 mg/dL 05/21/2024 9:36 AM EST [facility] 56- CALCIUM 8.2(L) 8.4 - 10.2 mg/dL 05/21/2024 9:36 AM EST [facility] 56- Protein 5.2(L) 6.0 - 8.3 g/dL 05/21/2024 9:36 AM [facility] 56- Comment:Results rechecked. ALT 28 10 - 50 U/L 05/21/2024 9:36 AM [facility] 56 Blood Venous blood specimen / Unknown Venipuncture / Unknown 05/21/2024 8:44 AM EST 05/21/2024 8:45 AM EST us Brian Dyson MD LAB BLOOD ORDERABLES Final Res ult [facility] 56- [address] [place] [address] documented in this encounter Visit Diagnoses Diagnosis [...] Advance Directives occurred with: Patient Care Teams Rn Visiting Relationship Specialty Start Date End Date Rahul Tucker MD [address] [place] [address] [place] [address] PCP - General Family Medicine 08/03/18 documented as of this encounter
--- OUTSIDE RECORDS SUMMARY | 2024-05-31 20:16 | External Medical Summary ---
Author Name Unknown Address Unknown Organization [id number]:[facility] [place] [address] Laboratory Report Ordering Provider Test Date Status CL SPAIN 05/21/2024 08:44:59 Final Warfarin Therapy
INR: 2 .0-3.0 conventional anticoagulation
INR: 2.5- 3.5 high intensity anticoagulation Observation Date Value Abnormality Reference (Units ) Status PT 05/21/2024 08:44:59 18.7 Above high normal 11 .6-15.2 (seconds) Final INR 05/21/2024 08:44:59 1.5 Above high normal 0. 8-1.2 Final Performing Location [facility] [place] [address]
--- OUTSIDE RECORDS SUMMARY | 2024-05-31 20:16 | External Medical Summary | Summary of Care ---
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[facility]); GARY (acute kidney injury) ([facility]); Anticoagulation management encounter Allergies Active [...] (Prevnar) 06/17/2014 Pneumococcal Conjugate Vacci ne, 20-valent ([id number]) 02/15/2022 Pneumococcal Polysaccharide PPV23 (Pneumovax) 05/19/2016 Seasonal [...] Billheim, Genoveva, RN * Do you have serious difficulty [...] 2:00 PM EST Office Visit Family Medicine [address] [address] Merry Uriostegui MD [address] [place] [address] [place] [address] 05/21/2024 5:30 PM EST Anticoagulation Pharmacy, [address] [place] [address] [place] [address] 05/23/2024 10:00 AM EST Laboratory Laboratory Sc[place]ery [place] [address] [place] [phone] Park, Lab Scene [address] [place] [address] 05/23/2024 10:30 AM EST Hem/Onc Treatment Hematology/Oncology Treatment, [place] 200 [facility] [place] [address] Shima, Chair 1 Hem Onc Scenery [address] [place] [address] 05/23/2024 5:40 PM EST Anticoagulation Pharmacy, [address] [place] [address] [place] [address] 05/24/2024 9:00 AM EST Pharmacy Pharmacy Hematology Oncology [facility] [address] [place] [address] [facility] Hem/Onc [address] [place] [address] 05/30/2024 10:00 AM EST Laboratory Laboratory [facility] [place] [address] [place] [phone] Shima, Lab Scenery [address] [place] [address] 05/30/2024 11:00 AM EST Office Visit Hematology/Oncology [facility] [place] [address] [place] [phone] Rebeca Aguillon CRNP 400 [facility] [place] [address] 05/30/2024 11:30 AM EST Hem/Onc Treatment Hematology/Oncology Treatment, [place] [address] [place] [phone] Shima, Chair 8 Hem Onc Scenery [address] [place] [address] 07/17/2024 11:15 AM EDT Procedure Only Urology, [facility] 132 [facility] [place] [address] Duglas Tadeo MD 27 [facility] [place] [id number] Pending Results Name Type Priority Associated Diagnoses Date /Time COMPREHENSIVE METABOLIC PANEL Lab STAT Light chain (AL) amyloidosis (HCC) 05/21/2024 8:44 AM EST PT INR Lab Routine GARY (acute kidney injury) (HCC) Anticoagulation management encounter 05/21/2024 8:44 AM EST Scheduled Procedures Name Priority Associated [...] 4.00 - 10.80 K/uL 05/21/2024 8:49 AM EST [facility] [place] 56-02 Neutrophils % 49.1 40.0 - 75.0 % 05/21/2024 8:49 AM EST [facility] [place] 56-02 Lymphocytes % 37.9 18.0 - 42.0 % 05/21/2024 8:49 AM EST [facility] [place] 56-02 Monocytes % 12.6(H) 1.0 - 11.0 % 05/21/2024 8:49 AM EST [facility] [place] 56-02 Eosinophils % 0.0 0.0 - 6.0 % 05/21/2024 8:49 AM EST [facility] [place] 56-02 Basophils % 0.4 0.0 - 2.0 % 05/21/2024 8:49 AM EST [facility] [place] 56-02 Absolute Neutrophils 1.36(L) 1.80 - 7.70 K/uL 05/21/2024 8:49 AM EST [facility] [place] 56-02 Absolute Lymphocytes 1.05 1.00 - 4.80 K/ul 05/21/2024 8:49 AM EST [facility] [place] 56-02 Absolute Monocytes 0.35 0.00 - 1.10 K/uL 05/21/2024 8:49 AM EST [facility] [place] 56-02 Absolute Eosinophils 0.00 0.00 - 0.70 K/uL 05/21/2024 8:49 AM EST [facility] [place] 56-02 Absolute Basophils 0.01 0.00 - 0.20 K/uL 05/21/2024 8:49 AM EST [facility] [place] 56-02 Blood Venous blood specimen / Unknown Venipuncture / Unknown 05/21/2024 8:44 AM EST 05/21/2024 8:45 AM EST Brian Dyson MD LAB BLOOD ORDERABLES Final Res ult Performing Organization Address City/State[facility] Co [facility] Phone Number [facility] [address] [place] [address] * (ABNORMAL) CBC (05/21/2024 8:44 AM EST) WBC 2.77(L) 4.00 - 10.80 K/uL 05/21/2024 8:49 AM EST [facility] 56- RBC 3.32 4.50 - 5.25 M/uL 05/21/2024 8:49 AM EST [facility] 56- HGB 10.5(L) 14.0 - 16.8 g/dL 05/21/2024 8:49 AM EST [facility] 56- HCT 32.0(L) 40.0 - 48.4 % 05/21/2024 8:49 AM [facility] 56 MCV 96.4 82.0 - 99.5 fL 05/21/2024 8:49 AM EST [facility] 56- MCH 31.6 27.0 - 34.0 pg 05/21/2024 8:49 AM EST [facility] 56- MCHC 32.8 32.0 - 36.0 g/dL 05/21/2024 8:49 AM [facility] 56- RDW 18.8 11.5 - 15.5 % 05/21/2024 8:49 AM [facility] 56- PLT 492(H) 140 - 400 K/uL 05/21/2024 8:49 AM [facility] 56- MPV 10.2 6.6 - 11.1 fL 05/21/2024 8:49 AM [facility] 56- Blood Venous blood specimen / Unknown Venipuncture / Unknown 05/21/2024 8:44 AM EST 05/21/2024 8:45 AM EST us Brian Dyson MD LAB BLOOD ORDERABLES Final Res ult [facility] [address] [place] [address] documented in this encounter Visit Diagnoses Diagnosis Light chain (AL) amyloidosis (HCC) AGRY (acute kidney injury) (HCC) Acute kidney failure, [...] Directives occurred with: Patient Care Teams Composite Bond Technician Relationship Specialty Start Date End Date Rahul Tucker MD [address] [place] [address] [place] [address] PCP - General Family Medicine 08/03/18 documented as of this encounter
--- OUTSIDE RECORDS SUMMARY | 2024-05-31 20:16 | External Medical Summary ---
Author Name Unknown Address Unknown Organization K09:[facility] [place] [address] Laboratory Report Ordering Provider Test Date Status YOLA CHURCH 05/21/2024 08:44:59 Final Observation Date Value Abnormality Reference (Units ) Status WBC, Total 05/21/2024 08:44:59 2.77 Below low normal 4. 00-10.80 (K/uL) Final RBC 05/21/2024 08:44:59 3.32 4.50-5.25 (M/uL) Final Hemoglobin 05/21/2024 08:44:59 10.5 Below low normal 14 .0-16.8 (g/dL) Final HCT 05/21/2024 08:44:59 32.0 Below low normal 40. 0-48.4 (%) Final MCV 05/21/2024 08:44:59 96.4 82.0-99.5 (fL) Final MCH 05/21/2024 08:44:59 31.6 27.0-34.0 (pg) Final MCHC 05/21/2024 08:44:59 32.8 32.0-36.0 (g/dL) Final RDW 05/21/2024 08:44:59 18.8 11.5-15.5 (%) Final Platelets 05/21/2024 08:44:59 492 Above high normal 14 0-400 (K/uL) Final MPV 05/21/2024 08:44:59 10.2 6.6-11.1 ( fL) Final Performing Location [facility] [place] [address]
--- OUTSIDE RECORDS SUMMARY | 2024-05-31 20:16 | External Medical Summary ---
Author Name Unknown Address Unknown Organization K09:[facility] [place] 56 [address] [place] [address] Laboratory Report Ordering Provider Test Date Status YOLA CHURCH 05/21/2024 08:44:59 Final Observation Date Value Abnormality Reference (Units ) Status BUN 05/21/2024 08:44:59 96 Above high normal 6- 20 (mg/dL) Final Results rechecked. Creatinine 05/21/2024 08:44:59 5.7 Above high normal 0 .6-1.2 (mg/dL) Final Results rechecked. Glomerular filtration rate/1.73 sq M.predicted [Volume Rate/Area] in Serum, Plasma or Blood by Creatinine-based formula (CKD-EPI) 05/21/2024 08:44:59 10 Below low normal >=60 (mL/min) Fin al eGFR is calculated based on the CKD-EPI 2020 equation. Sodium 05/21/2024 08:44:59 140 135-146 (m mol/L) Final Potassium 05/21/2024 08:44:59 3.2 Below low normal 3.5 -5.1 (mmol/L) Final Cl 05/21/2024 08:44:59 100 98-107 (mm ol/L) Final CO2 05/21/2024 08:44:59 24 22-32 (mmo l/L) Final Anion gap 05/21/2024 08:44:59 16 Above high normal 7- 15 (mmol/L) Final Glucose 05/21/2024 08:44:59 99 70-120 (mg /dL) Final Albumin 05/21/2024 08:44:59 1.7 Below low normal 3.8 -5.0 (g/dL) Final Results rechecked. AST (Aspartate aminotransferase) 05/21/2024 08:44:59 58 Above high normal 10-50 (U/L) Final Alk Phos 05/21/2024 08:44:59 791 Above hi gh normal 35-130 (U/L) Final Bilirubin, Total 05/21/2024 08:44:59 0.2 <=1 .2 (mg/dL) Final Calcium 05/21/2024 08:44:59 8.2 Below lo w normal 8.4-10.2 (mg/dL) Final Protein 05/21/2024 08:44:59 5.2 Below lo w normal 6.0-8.3 (g/dL) Final Results rechecked. ALT (Alanine aminotransferase) 05/21/2024 08:44:59 28 10-50 (U/L) Final Performing Location [facility] [place] [address] [place] [address]
--- OUTSIDE RECORDS SUMMARY | 2024-05-31 20:16 | External Medical Summary | Summary of Care ---
Author Name Unknown Organization [facility] Address [address] [place] [address] Phone [phone] Care Team Providers Care Manager Telemarketing Name Role Phone Rahul Tucker MD Primary Care Provide r Reason for Visit * Reason Onset Date Comments Appointment 05/20/2024 Keren Encounter Details Date Type Department Care Team (Late st Contact Info) Description 05/20/2024 Telephone Hematology/Oncology [facility] 200 [facility] [place] [phone] Brian Dyson MD 200 [place] [address] Appointment (Keren) Allergies Active Allergy Reactions Criticality Noted Date [...] (Prevnar) 06/17/2014 Pneumococcal Conjugate Vacci ne, 20-valent ([id number]) 02/15/2022 Pneumococcal Polysaccharide PPV23 (Pneumovax) 05/19/2016 Seasonal [...] Description 05/21/2024 8:30 AM EST Laboratory Laboratory [facility] [address] [place] [phone] Shima, Lab Scenery 200 Derrell Aquino [place] [address] 05/21/2024 9:00 AM EST Office Visit Hematology/Oncology [facility] [place] [address] [place] [address] Brian Dyson MD [address] [place] [address] 05/23/2024 10:00 AM EST Laboratory Laboratory [facility] [place] [address] [place] [address] Shima, Lab Scenery [address] [facility] [place] [address] 05/23/2024 10:30 AM EST Hem/Onc Treatment Hematology/Oncology Treatment, [place] [address] [place] [phone] Shima, Chair 1 Hem Onc Scenery [address] [place] [address] 05/23/2024 5:40 PM EST Anticoagulation Pharmacy, [address] [place] [address] [place] [address] 05/24/2024 9:00 AM EST Pharmacy Pharmacy Hematology Oncology [facility] [address] [place] [address] [facility] Hem/Onc [address] [place] [address] 05/30/2024 10:00 AM EST Laboratory Laboratory [facility] Shima [place] [address] [place] [phone] Shima, Lab Scenery [address] [place] [address] 05/30/2024 11:00 AM EST Office Visit Hematology/Oncology [facility] [place] [address] [place] [phone] Rebeca Aguillon CRNP 400 [facility] [place] [id number] 05/30/2024 11:30 AM EST Hem/Onc Treatment Hematology/Oncology Treatment, [place] [address] [place] [phone] Shima, Chair 8 Hem Onc Scenery [address] [place] [address] 07/17/2024 11:15 AM EDT Procedure Only Urology, [facility], [place] 132 [facility] [place] [address] Duglas Tadeo MD [address] [place] [address] Scheduled Procedures Name Priority [...] Advance Directives occurred with: Patient Care Teams Manager Telemarketing Relationship Specialty Start Date End Date Rahul Tucker MD [address] [place] [address] [place] [address] PCP - General Family Medicine 08/03/18 documented as of this encounter
--- OUTSIDE RECORDS SUMMARY | 2024-05-31 20:16 | External Medical Summary | Summary of Care ---
Author Name Unknown Organization [facility] Address [address] [place] [address] Phone [phone] Care Team Providers Care Band Presser Name Role Phone Rahul Tucker MD Primary Care Provide r Reason for Visit * Reason Onset Date Comments Information 05/16/2024 Encounter Details Date Type Department Care Team (Late st Contact Info) Description 05/16/2024 Telephone Hematology/Oncology Treatment, [place] 200 [facility] [place] [phone] Brian Dyson MD 200 [place] [address] Information Allergies Active Allergy Reactions Criticality Noted [...] (Prevnar) 06/17/2014 Pneumococcal Conjugate Vacci ne, 20-valent ([id number]) 02/15/2022 Pneumococcal Polysaccharide PPV23 (Pneumovax) 05/19/2016 Seasonal [...] 05/17/2024 4:14 PM EST Patient discharged from [facility] 05/13/24. Called patients . She confirmed patient is HOLDING oral chemotherapy. She is concerned about patient getting future treatment. Offered appt with DUST PULLER day of treatment- she states that she [...] 8:30 AM EST Laboratory Laboratory [place] [address] [place] [phone] Park, Lab Scenery [address] [place] [address] 05/21/2024 9:00 AM EST Office Visit Family Medicine [address] [place] [phone] Merry Uriostegui MD [address] [place] [address] [place] [phone] 05/21/2024 9:00 AM EST Office Visit Hematology/Oncology [facility] [place] [address] [place] [phone] Brian Dyson MD [address] [place] [address] 05/23/2024 10:00 AM EST Laboratory Laboratory Scenery [place] Yasmin Ronqu[place] [address] [place] [phone] Shima, Lab Scenery [address] [place] [address] 05/23/2024 10:30 AM EST Hem/Onc Treatment Hematology/Oncology Treatment, [place] [address] [place] [phone] Shima, Chair 1 Hem Onc Scenery [address] [place] [address] 05/23/2024 5:40 PM EST Anticoagulation Pharmacy, [address] [place] [address] [place] [address] 05/24/2024 9:00 AM EST Pharmacy Pharmacy Hematology Oncology [address] [address] [facility] Hem/Onc [address] [place] [address] 05/30/2024 10:00 AM EST Laboratory Laboratory [facility] [address] [place] [phone] Shima, Lab Scenery 200 [facility] [place] [address] 05/30/2024 11:00 AM EST Office Visit Hematology/Oncology [facility] [place] [address] [place] [phone] Rebeca Aguillon CRNP 400 [facility] [place] [id number] 05/30/2024 11:30 AM EST Hem/Onc Treatment Hematology/Oncology Treatment, [place] [address] [place] [address] Shima, Chair 8 Hem Onc [facility] 200 [facility] [place] [address] 07/17/2024 11:15 AM EDT Procedure Only Urology, [facility] 132 [facility] [place] [address] Duglas Tadeo MD 27 [facility] [place] [address] Scheduled Procedures Name Priority Associated Diagnoses Date/Ti [...] Advance Directives occurred with: Patient Care Teams Band Presser Relationship Specialty Start Date End Date Rahul Tucker MD [address] [place] [address] [place] [address] PCP - General Family Medicine 08/03/18 documented as of this encounter
--- OUTSIDE RECORDS SUMMARY | 2024-05-31 20:16 | External Medical Summary | Summary of Care ---
Author Name Unknown Organization [facility] [address] [facility] [address] Phone [phone] Care Team Providers Care Maintenance Man Name Role Phone Rahul Tucker MD Primary Care Provide r Encounter Details Date Type Department Care Team (Late st Contact Info) Description 05/20/2024 Orders Only Hematology/Oncology [place] 200 [facility] [place] [phone] Brian Dyson MD 200 [facility] [place] [address] Allergies Active Allergy Reactions Criticality Noted Date [...] (Prevnar) 06/17/2014 Pneumococcal Conjugate Vacci ne, 20-valent ([id number]) 02/15/2022 Pneumococcal Polysaccharide PPV23 (Pneumovax) 05/19/2016 Seasonal [...] Description 05/21/2024 8:30 AM EST Laboratory Laboratory [facility] [place] [address] [place] [phone] Shima [facility] 200 [facility] [place] [address] 05/21/2024 9:00 AM EST Office Visit Hematology/Oncology [facility] [place] [address] [place] [phone] Brian Dyson MD 200 [facility] [place] [address] 05/21/2024 2:40 PM EST Office Visit Family Medicine [address] [phone] Merry Uriostegui MD [address] [place] [address] [place] [phone] 05/23/2024 10:00 AM EST Laboratory Laboratory [facility] Shima [place] [address] [place] [phone] Shima Lab [facility] 200 [facility] [place] [address] 05/23/2024 10:30 AM EST Hem/Onc Treatment [facility]ology[facility] [address] [place] [phone] Shima, Chair 1 Hem Onc Scenery [address] [place] [address] 05/23/2024 5:40 PM EST Anticoagulation Pharmacy, [address] [place] [address] [place] [address] 05/24/2024 9:00 AM EST Pharmacy Pharmacy Hematology Oncology [place] [address] [place] [address] [facility] Hem/Onc [facility] [place] [address] 05/30/2024 10:00 AM EST Laboratory Laboratory [facility] [place] [address] [place] [phone] Shima, Lab Scenery 200 [facility] [place] [address] 05/30/2024 11:00 AM EST Office Visit Hematology/Oncology [facility] State [place] [address] [place] [phone] Rebeca Aguillon CRNP 400 [facility] [address] 05/30/2024 11:30 AM EST Hem/Onc Treatment [facility]ology[facility] [address] [place] [phone] Shima, Chair 8 Hem Onc Scenery [address] [place] [address] 07/17/2024 11:15 AM EDT Procedure Only Urology, [facility] [address] [place] [address] Duglas Tadeo MD 27 [...] Advance Directives occurred with: Patient Care Teams Maintenance Man Relationship Specialty Start Date End Date Rahul Tucker MD [address] [place] [address] [place] [address] PCP - General Family Medicine 08/03/18 documented as of this encounter
--- OUTSIDE RECORDS SUMMARY | 2024-05-31 20:16 | External Medical Summary ---
Author Name Unknown Address Unknown Organization K09:[facility] [place] [address] Laboratory Report Ordering Provider Test Date Status YOLA CHURCH 05/21/2024 08:44:59 Final Observation Date Value Abnormality Reference (Units ) Status SYNC LEUKOCYTES IN BLOOD BY AUTOMATED COUNT 05/21/2024 08:44:59 2.77 Below low normal 4.00-10.80 (K/uL) Final Segs 05/21/2024 08:44:59 49.1 40.0-75.0 (%) Final Lymphs % 05/21/2024 08:44:59 37.9 18.0-42.0 (%) Final Monos 05/21/2024 08:44:59 12.6 Above high normal 1.0-11.0 (%) Final Eosinophils 05/21/2024 08:44:59 0.0 0.0-6.0 (%) Final Basos 05/21/2024 08:44:59 0.4 0.0-2.0 (%) Final Absolute Segs 05/21/2024 08:44:59 1.36 Below low normal 1.80-7.70 (K/uL) Final Lymphs, absolute 05/21/2024 08:44:59 1.05 1.00-4.80 (K/ul) Final Monos, Abs 05/21/2024 08:44:59 0.35 0.00-1.10 (K/uL) Final Eos, Abs 05/21/2024 08:44:59 0.00 0.00-0.70 (K/uL) Final Basos, Abs 05/21/2024 08:44:59 0.01 0.00-0.20 (K/uL) Final Performing Location [facility] [place] [address]
--- OUTSIDE RECORDS SUMMARY | 2024-05-31 20:16 | External Medical Summary | Summary of Care ---
Author Name Unknown Organization [facility] Address [address] [place] [address] Phone [phone] Care Team Providers Care Cryolite Recovery Operator Name Role Phone Rahul Tucker MD Primary Care Provide r Reason for Visit * Reason Onset Date Comments Information 05/16/2024 Encounter Details Date Type Department Care Team (Late st Contact Info) Description 05/16/2024 Telephone Hematology/Oncology Treatment, [place] [address] [place] [phone] Brian Dyson MD [address] [place] [address] Information Allergies Active Allergy Reactions Criticality Noted [...] (Prevnar) 06/17/2014 Pneumococcal Conjugate Vacci ne, 20-valent ([id number]) 02/15/2022 Pneumococcal Polysaccharide PPV23 (Pneumovax) 05/19/2016 Seasonal [...] encounter Miscellaneous Notes * Telephone Encounter - Shantal Gage OSA - 05/20/2024 12:33 PM EST The pt is already scheduled for 05/21 in Hem onc See the note about FP * Telephone Encounter - Genoveva Diez RN - 05/17/2024 4:14 PM EST Patient discharged from [facility] 05/13/24. Called patients . She confirmed patient is HOLDING oral chemotherapy. She is concerned about patient getting future treatment. Offered appt with NICOLE day of treatment- she states that she [...] to be moved? He has dialysis Mon, Wed, Mon, but could do either Monday later in the day or . Thank you! documented in this encounter Plan of Treatment Upcoming Encounters Date Type Department Care Team (Late st Contact Info) Description 05/21/2024 8:30 AM EST Laboratory [facility] [place] [address] [place] [phone] [place] [address] [place] [address] 05/21/2024 9:00 AM EST Office Visit Hematology/Oncology [facility] [place] [address] [place] [phone] Brian Dyson MD [address] [place] [address] 05/21/2024 2:40 PM EST Office Visit Family Medicine [address] [place] [phone] Merry Uriostegui MD [address] [place] [address] [place] [phone] 05/23/2024 10:00 AM EST Laboratory Laboratory [facility] [place] [address] [place] [phone] Shima, Lab Scenery [address] [place] [address] 05/23/2024 10:30 AM EST Hem/Onc Treatment Hematology/Oncology Treatment, [place] [address] [facility] [place] [phone] Shima, Chair 1 Hem Onc [facility] [address] [place] [address] 05/23/2024 5:40 PM EST Anticoagulation Pharmacy, [address] [place] [address] [place] [address] 05/24/2024 9:00 AM EST Pharmacy Pharmacy Hematology Oncology [facility] [address] [place] [address] [facility] Hem/Onc [address] [place] [address] 05/30/2024 10:00 AM EST Laboratory Laboratory Scenery [facility] [place] [address] [place] [phone] hSima, Lab Scenery [address] [place] [address] 05/30/2024 11:00 AM EST Office Visit Hematology/Oncology [facility] [place] [address] [place] [phone] Rebeca Aguillon CRNP 400 [facility] [place] [address] 05/30/2024 11:30 AM EST Hem/Onc Treatment Hematology/Oncology Treatment, [place] [address] [place] [phone] Shima, Chair 8 Hem Onc Scenery [address] [place] [address] 07/17/2024 11:15 AM EDT Procedure Only Urology, [facility] 132 [facility] [place] [address] Duglas Tadeo MD 27 [facility] [place] [address] Scheduled Procedures Name Priority Associated Diagnoses Date/Ti [...] Advance Directives occurred with: Patient Care Teams Cryolite Recovery Operator Relationship Specialty Start Date End Date Rahul Tucker MD [address] [place] [address] [place] [address] PCP - General Family Medicine 08/03/18 documented as of this encounter
--- OUTSIDE RECORDS SUMMARY | 2024-05-31 20:17 | External Medical Summary | Summary of Care ---
Author Name Unknown Organization [facility] Address [address] [place] [address] Phone [phone] Care Team Providers Care Warehousing Technician Name Role Phone Rahul Tucker MD Primary Care Provide r Reason for Visit * Reason Onset Date Comments Information 05/16/2024 Encounter Details Date Type Department Care Team (Late st Contact Info) Description 05/16/2024 Telephone Hematology/Oncology Treatment, [place] [address] [facility] [place] [phone] Brian Dyson MD 200 [place] [address] Information Allergies Active Allergy Reactions Criticality Noted [...] (Prevnar) 06/17/2014 Pneumococcal Conjugate Vacci ne, 20-valent ([id number]) 02/15/2022 Pneumococcal Polysaccharide PPV23 (Pneumovax) 05/19/2016 Seasonal [...] patient getting future treatment. Offered appt with BUILDING CODE ADMINISTRATOR day of treatment- she states that she [...] 8:30 AM EST Laboratory Laboratory Derrell Ronquillo [place] [address] [place] [phone] [place], Lab Scenery [address] [place] [address] 05/21/2024 9:00 AM EST Office Visit Family Medicine [address] [place] [phone] Merry Uriostegui MD [address] [place] [address] [place] [phone] 05/21/2024 9:00 AM EST Office [facility] [place] [address] [place] [phone] Brian Dyson MD [address] [place] [address] 05/23/2024 10:00 AM EST Laboratory Laboratory Scenery [place] Yasmin Ronquillo [address] [place] [phone] Shima, Lab Scenery [address] [place] [address] 05/23/2024 10:30 AM EST Hem/Onc Treatment Hematology/Oncology Treatment, [place] [address] [place] [phone] Shima, Chair 1 Hem Onc Scenery [address] [place] [address] 05/23/2024 5:40 PM EST Anticoagulation Pharmacy, [address] [place] [address] [place] [address] 05/24/2024 9:00 AM EST Pharmacy Pharmacy Hematology Oncology [address] [address] [facility] Hem/Onc [address] [place] [address] 05/30/2024 10:00 AM EST Laboratory Laboratory [facility] [address] [place] [phone] Shima, Lab Scenery [address] [facility] [place] [address] 05/30/2024 11:00 AM EST Office Visit Hematology/Oncology [facility] [place] [address] [place] [phone] Rebeca Aguillon CRNP 400 [facility] [place] [phone] 05/30/2024 11:30 AM EST Hem/Onc Treatment Hematology/Oncology Treatment, [place] [address] [place] [phone] Shima, Chair 8 Hem Onc [facility] [address] [facility] [place] [address] 07/17/2024 11:15 AM EDT Procedure Only Urology, [facility] 132 [facility] [place] [address] Duglas Tadeo MD 27 [facility] [place] [address] Scheduled Procedures Name Priority Associated Diagnoses Date/Ti [...] Advance Directives occurred with: Patient Care Teams Warehousing Technician Relationship Specialty Start Date End Date Rahul Tucker MD [address] [place] [address] [place] [address] PCP - General Family Medicine 08/03/18 documented as of this encounter
--- OUTSIDE RECORDS SUMMARY | 2024-05-31 20:17 | External Medical Summary | Summary of Care ---
Author Name Unknown Organization [facility] Address [address] [place] [address] Phone [phone] Care Team Providers Care Content Producer Name Role Phone Rahul Tucker MD Primary Care Provide r Reason for Visit * Reason Comments Outpatient Testing Encounter Details Date Type Department Care Team (Late st Contact Info) Description 05/16/2024 12:20 PM EST Laboratory Laboratory [address] [place] [phone] , Specimen Drop Off [address] [place] [address] Amyloidosis, unspecified type (HCC); ESRD (end stage renal disease) (HCC); Light chain (AL) amyloidosis (HCC); Amyloidosis, unspecified (HCC); Hypertensive heart disease, malignant, with ESRD, acute management (HCC); 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[facility]) Allergies Active Allergy Reactions Criticality Noted Date Comments Azithromycin Hives 12/10/2010 documented as of this encounter (statuses as of 05/16/2024) Medications Finasteride 5 MG Oral Tablet (Proscar) [...] as of this encounter (statuses as of 05/16/2024) Active Problems Problem Noted Date Diagnosed Date [...] as of this encounter (statuses as of 05/16/2024) Resolved Problems Problem Noted Date Diagnosed Date Resolved Date CKD (chronic kidney disease) stage 5, GFR less than 15 ml/min 03/28/2024 04/22/2024 Carpal tunnel syndrome 06/17/201402/08 Allergic rhinitis 06/17/2014 02/08/2018 Adjustment disorder with depressed mood 12/10/2013 07/20/2017 Eczema 06/22/2012 07/20/2017 Epileptic seizure 12/10/2010 08/16/2018 documented as of this encounter (statuses as of 05/16/2024) Immunizations Name Administration Dates Next Due Pneumococcal Conjugate Vacc, 13 Valent (Prevnar) 06/17/2014 Pneumococcal Conjugate Vacci ne, 20-valent ([id number]) 02/15/2022 Pneumococcal Polysaccharide PPV23 (Pneumovax) 05/19/2016 Seasonal [...] Department Care Team (Latest Contact Info) Description 05/16/2024 5:40 PM EST Anticoagulation Pharmacy, [address] [place] [address] [place] [address] Anticoagulation management encounter*; GARY (acute kidney injury) (HCC); Light chain (AL) amyloidosis (HCC) 05/21/2024 8:50 AM EST Anticoagulation Pharmacy, [address] [place] [address] [place] [address] 05/21/2024 9:00 AM EST Office Visit Family Medicine [address] [place] [phone] Merry Uriostegui MD [address] [place] [address] [place] [phone] 05/23/2024 10:00 AM EST Laboratory Laboratory Scenery State [place] [address] [place] [phone] Shima, Lab Scenery [address] [place] [address] 05/23/2024 10:30 AM EST Hem/Onc Treatment Hematology/Oncolog y Treatment, [place] [address] [place] [phone] Shima, Chair 1 Hem Onc Scenery [address] [place] [address] 05/23/2024 5:40 PM EST [facility], [address] [place] [address] [place] [address] 05/30/2024 10:00 AM EST Laboratory Laboratory Scenery Shima [place] [address] [place] [phone] Shima, Lab Scenery [address] [place] [address] 05/30/2024 11:00 AM EST Office Visit Hematology/Oncolog y Scenery [place] Yasmin Ronquillo [address] [place] [phone] Rebeca Aguillon CRNP 400 [facility] [place] [address] 05/30/2024 11:30 AM EST Hem/Onc Treatment Hematology/Oncolog y Treatment, [place] [address] [place] [phone] Shima, Chair 8 Hem Onc Scenery [address] [place] [address] 07/17/2024 11:15 AM EDT Procedure Only Urology, [facility] [address] [facility] [place] [address] Duglas Tadeo MD 27 [place] [address] Pending Results Name Type Priority Associated Diagnoses Date /Time CBC WITH WBC DIFFERENTIAL Lab Routine Amyloidosis, unspecified type (HCC) ESRD (end stage renal disease) (HCC) Light chain (AL) amyloidosis (HCC) 05/16/2024 11:44 AM EST COMPREHENSIVE METABOLIC PANEL Lab Routine Amyloidosis, unspecified type (HCC) ESRD (end stage renal disease) (HCC) Light chain (AL) amyloidosis (HCC) 05/16/2024 11:44 AM EST MAGNESIUM Lab Routine Amyloidosis, unspecified type (HCC) ESRD (end stage renal disease) (HCC) Light chain (AL) amyloidosis (HCC) 05/16/2024 11:44 AM EST PHOSPHORUS Lab Routine Amyloidosis, unspecified type (HCC) ESRD (end stage renal disease) (HCC) Light chain (AL) amyloidosis (HCC) 05/16/2024 11:44 AM EST CBC Lab Routine Amyloidosis, unspecified type (HCC) ESRD (end stage renal disease) (HCC) Light chain (AL) amyloidosis (HCC) 05/16/2024 11:44 AM EST DIFFERENTIAL, AUTOMATED Lab Routine Amyloidosis, unspecified type (HCC) ESRD (end stage renal disease) (HCC) Light chain (AL) amyloidosis (HCC) 05/16/2024 11:44 AM EST Scheduled Procedures Name Priority Associated [...] failure, unspecified Light chain (AL) amyloidosis (HCC) Amyloidosis, unspecified type (HCC) ESRD (end stage renal disease) (HCC) End stage renal disease Light chain (AL) amyloidosis (HCC) Hypertensive heart disease, malignant, with ESRD, acute management (HCC) 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 Question Answer Comments Discussion of Advance Directives occurred with: Patient Care Teams Content Producer Relationship Specialty Start Date End Date Rahul Tucker MD [address] [place] [address] [place] [phone] PCP - General Family Medicine 08/03/18 documented as of this encounter
--- OUTSIDE RECORDS SUMMARY | 2024-05-31 20:17 | External Medical Summary | Summary of Care ---
Author Name Unknown Organization [facility] Address [address] [place] [address] Phone [phone] Care Team Providers Care Motor Vehicle Representative Name Role Phone Rahul Tucker MD Primary Care Provide r Reason for Visit * Reason Onset Date Comments Information 05/16/2024 Encounter Details Date Type Department Care Team (Late st Contact Info) Description 05/16/2024 Telephone Hematology/Oncology Treatment, [place] [address] [facility] [place] [phone] Brian Dyson MD 200 [place] [address] Information Allergies Active Allergy Reactions Criticality Noted Date Comments Azithromycin Hives 12/10/2010 documented as of this encounter (statuses as of 05/17/2024) Medications Finasteride 5 MG Oral Tablet (Proscar) [...] as of this encounter (statuses as of 05/17/2024) Active Problems Problem Noted Date Diagnosed Date [...] as of this encounter (statuses as of 05/17/2024) Resolved Problems Problem Noted Date Diagnosed Date Resolved Date CKD (chronic kidney disease) stage 5, GFR less than 15 ml/min 03/28/2024 04/22/2024 Carpal tunnel syndrome 06/17/201402/08 Allergic rhinitis 06/17/2014 02/08/2018 Adjustment disorder with depressed mood 12/10/2013 07/20/2017 Eczema 06/22/2012 07/20/2017 Epileptic seizure 12/10/2010 08/16/2018 documented as of this encounter (statuses as of 05/17/2024) Immunizations Name Administration Dates Next Due Pneumococcal Conjugate Vacc, 13 Valent (Prevnar) 06/17/2014 Pneumococcal Conjugate Vacci ne, 20-valent ([id number]) 02/15/2022 Pneumococcal Polysaccharide PPV23 (Pneumovax) 05/19/2016 Seasonal [...] 05/17/2024 4:14 PM EST Patient discharged from [facility] 05/13/24. Called patients . She confirmed patient is HOLDING oral chemotherapy. She is concerned about patient getting future treatment. Offered appt with RECOVERY MANAGER day of treatment- she states that she [...] appt 05/21 able to be moved? He is dialysis Mon, Wed, Mon, but could do either Monday later in the day or . Thank you! documented in this encounter Plan of Treatment Upcoming Encounters Date Type Department Care Team (Late st Contact Info) Description 05/21/2024 8:30 AM EST Laboratory Laboratory [place] Yasmin [place] [address] [place] [phone] [place], Lab Scenery [address] [place] [address] 05/21/2024 8:50 AM EST Anticoagulation Pharmacy, [address] [place] [address] [place] [address] 05/21/2024 9:00 AM EST Office Visit Family Medicine [address] [place] [phone] Merry Uriostegui MD [address] [place] [address] [place] [phone] 05/21/2024 9:00 AM EST Office Visit Hematology/Oncology [facility] [place] [address] [place] [phone] Brian Dyson MD [address] [place] [address] 05/23/2024 10:00 AM EST Laboratory Laboratory [facility] [place] [address] [place] [phone] Shima, Lab Scenery [address] [place] [address] 05/23/2024 10:30 AM EST Hem/Onc Treatment Hematology/Oncology Treatment, [place] [address] [place] [phone] Shima, Chair 1 Hem Onc Scenery [address] [place] [address] 05/23/2024 5:40 PM EST Anticoagulation Pharmacy, [address] [place] [address] [place] [address] 05/30/2024 10:00 AM EST Laboratory Laboratory [facility] [address] [place] [phone] Shima, Lab Scenery [address] [facility] [place] [address] 05/30/2024 11:00 AM EST Office Visit Hematology/Oncology [facility] [place] [address] [place] [phone] Rebeca Aguillon CRNP 400 [facility] [place] [id number] 05/30/2024 11:30 AM EST Hem/Onc Treatment Hematology/Oncology Treatment, [place] [address] [place] [phone] Shima, Chair 8 Hem Onc [facility] 200 [facility] [place] [address] 07/17/2024 11:15 AM EDT Procedure Only Urology, [facility] [address] [place] [address] [address] Duglas Tadeo MD [address] [place] [address] [place] [id number] Scheduled Procedures Name Priority Associated Diagnoses Date/Ti [...] Advance Directives occurred with: Patient Care Teams Motor Vehicle Representative Relationship Specialty Start Date End Date Rahul Tucker MD [address] [place] [address] [place] [address] PCP - General Family Medicine 08/03/18 documented as of this encounter
--- OUTSIDE RECORDS SUMMARY | 2024-05-31 20:17 | External Medical Summary ---
Author Name Unknown Address Unknown Organization K01:LABORATORY C - [address] [place] [address] Laboratory Report Ordering Provider Test Date Status DEANN LOYD 05/16/2024 11:44:00 Final Observation Date Value Abnormality Reference (Units ) Status Magnesium 05/16/2024 11:44:00 1.7 1.5-2.6 (m g/dL) Final Performing Location [facility] - [address] [place] [address]
--- OUTSIDE RECORDS SUMMARY | 2024-05-31 20:17 | External Medical Summary | Summary of Care ---
Author Name Unknown Organization [facility] Address [address] Care Team Providers Care Programmer Analyst Consultant Name Role Phone Rahul Tucker MD Primary Care Provide r Reason for Visit * Reason Onset Date Comments FYI 05/15/2024 Encounter Details Date Type Department Care Team (Late st Contact Info) Description 05/15/2024 Telephone Pharmacy, [facility] [place] [address] [facility] [place] [address] [place] [address] FY (/) Allergies Active Allergy Reactions Criticality Noted Date Comments Azithromycin Hives 12/10/2010 documented as of this encounter (statuses as of 05/15/2024) Medications Finasteride 5 MG Oral Tablet (Proscar) [...] as of this encounter (statuses as of 05/15/2024) Active Problems Problem Noted Date Diagnosed Date [...] as of this encounter (statuses as of 05/15/2024) Resolved Problems Problem Noted Date Diagnosed Date Resolved Date CKD (chronic kidney disease) stage 5, GFR less than 15 ml/min 03/28/2024 04/22/2024 Carpal tunnel syndrome 06/17/201402/08 Allergic rhinitis 06/17/2014 02/08/2018 Adjustment disorder with depressed mood 12/10/2013 07/20/2017 Eczema 06/22/2012 07/20/2017 Epileptic seizure 12/10/2010 08/16/2018 documented as of this encounter (statuses as of 05/15/2024) Immunizations Name Administration Dates Next Due Pneumococcal Conjugate Vacc, 13 Valent (Prevnar) 06/17/2014 Pneumococcal Conjugate Vacci ne, 20-valent ([id number]) 02/15/2022 Pneumococcal Polysaccharide PPV23 (Pneumovax) 05/19/2016 Seasonal [...] Telephone Encounter - Brittney Villela RPh - 05/15/2024 12:56 PM EST Noted by MTM. Will plan to obtain INR from home health as previously scheduled. Orders already sent. Brittney Villela RPh, PharmD Clinical Pharmacist - Hearing Aid Assembly Supervisor [facility] 05/15/2024, 12:56 PM [phone] * Telephone Encounter - Celeste Liu CPhT - 05/15/2024 12:30 PM EST Caller's name: Mrs. Vera Preferred call back number(OFFICE NUMBER FOR ): [phone] Reason for call: wanted Brittney to know she cancelled the appointment with Dr. Dyson which was scheduled for tomorrow. Celeste Liu CPhT, [place] Automatic Drill Operator II [facility] ([facility]) (formerly Telepharmacy) 58[address] [facility] 38[address] [place] [address] ext [phone] documented in this encounter Plan of Treatment Upcoming Encounters Date Type Department Care Team (Late st Contact Info) Description 05/16/2024 9:00 AM EST Pharmacy Pharmacy Hematology Oncology [facility] [address] [place] [address] [facility] Hem/Onc [address] [place] [address] 05/16/2024 5:40 PM EST Anticoagulation Pharmacy, [address] [place] [address] [place] [address] 05/21/2024 9:00 AM EST Office Visit Family Medicine [address] [place] [phone] Merry Uriostegui MD [address] [place] [address] [place] [phone] 05/23/2024 10:00 AM EST Laboratory Laboratory [facility] [place] [address] [place] [phone] Shima, Lab Scenery [address] [place] [address] 05/23/2024 10:30 AM EST Hem/Onc Treatment Hematology/Oncology Treatment, [place] [address] [place] [phone] Shima, Chair 1 Hem Onc Scenery [address] [place] [address] 05/30/2024 10:00 AM EST Laboratory Laboratory Scenery Shima [place] [address] [place] [phone] Shima, Lab Scenery [address] [place] [address] 05/30/2024 11:00 AM EST Office Visit Hematology/Oncology [facility] [address] [place] [phone] Rebeca Aguillon CRNP 400 [facility] [place] [address] 05/30/2024 11:30 AM EST Hem/Onc Treatment Hematology/Oncology Treatment, [place] [address] [place], [place] [address] Shima, Chair 8 Hem Onc Scenery 200 [facility] [place] [address] 07/17/2024 11:15 AM EDT Procedure Only Urology, [facility] [address] [place] [address] Duglas Tadeo MD 27 [facility] [place] [phone] Scheduled Procedures Name Priority Associated Diagnoses Date/Ti [...] Advance Directives occurred with: Patient Care Teams Programmer Analyst Consultant Relationship Specialty Start Date End Date Rahul Tucker MD [address] [place] [address] [place] [address] PCP - General Family Medicine 08/03/18 documented as of this encounter
--- OUTSIDE RECORDS SUMMARY | 2024-05-31 20:17 | External Medical Summary ---
Author Name Unknown Address Unknown Organization K01:[facility] [address] [facility] [address] [place] [address] Laboratory Report Ordering Provider Test Date Status DEANN LOYD 05/16/2024 11:44:00 Final Observation Date Value Abnormality Reference (Units ) Status WBC, Total 05/16/2024 11:44:00 4.94 4.00-10.80 (K/uL) Final RBC 05/16/2024 11:44:00 2.74 4.50-5.25 (M/uL) Final Hemoglobin 05/16/2024 11:44:00 8.7 Below low normal 14.0-16.8 (g/dL) Final HCT 05/16/2024 11:44:00 27.6 Below low normal 40.0-48.4 (%) Final MCV 05/16/2024 11:44:00 100.7 82.0-99.5 (fL) Final MCH 05/16/2024 11:44:00 31.8 27.0-34.0 (pg) Final MCHC 05/16/2024 11:44:00 31.5 32.0-36.0 (g/dL) Final RDW 05/16/2024 11:44:00 18.8 11.5-15.5 (%) Final Platelets 05/16/2024 11:44:00 402 Above high normal 140-400 (K/uL) Final MPV 05/16/2024 11:44:00 9.9 6.6-11.1 (fL) Final Nucleated erythrocytes/100 leukocytes [Ratio] in Blood by Automated count 05/16/2024 11:44:00 0 <=0 (/100 WBCs) Final Performing Location [facility] [address] [place] [address]
--- OUTSIDE RECORDS SUMMARY | 2024-05-31 20:17 | External Medical Summary | Summary of Care ---
Author Name Unknown Organization [facility] Address [address] [place] [facility] [address] Phone [phone] Care Team Providers Care Wire Inserter Name Role Phone Rahul Tucker MD Primary Care Provide r Reason for Visit * Reason Comments Dosage Adjustment Via Phone (anticoag Cl inic) Encounter Details Date Type Department Care Team (Latest Contact Info) Description 05/14/2024 5:10 PM [facility] Anticoagulation Pharmacy, [address] [place] [address] [place] [address] Anticoagulation management encounter*; GARY (acute kidney injury) (HCC); Light chain (AL) amyloidosis ([facility]) Allergies Active Allergy Reactions Criticality Noted Date Comments Azithromycin Hives 12/10/2010 documented as of this encounter (statuses as of 05/14/2024) Medications Finasteride 5 MG Oral Tablet (Proscar) [...] as of this encounter (statuses as of 05/14/2024) Active Problems Problem Noted Date Diagnosed Date [...] as of this encounter (statuses as of 05/14/2024) Resolved Problems Problem Noted Date Diagnosed Date Resolved Date CKD (chronic kidney disease) stage 5, GFR less than 15 ml/min 03/28/2024 04/22/2024 Carpal tunnel syndrome 06/17/201402/08 Allergic rhinitis 06/17/2014 02/08/2018 Adjustment disorder with depressed mood 12/10/2013 07/20/2017 Eczema 06/22/2012 07/20/2017 Epileptic seizure 12/10/2010 08/16/2018 documented as of this encounter (statuses as of 05/14/2024) Immunizations Name Administration Dates Next Due Pneumococcal Conjugate Vacc, 13 Valent (Prevnar) 06/17/2014 Pneumococcal Conjugate Vacci ne, 20-valent ([id number]) 02/15/2022 Pneumococcal Polysaccharide PPV23 (Pneumovax) 05/19/2016 Seasonal [...] this encounter Progress Notes * Brittney Villela, [facility] - 05/14/2024 9:26 AM EST Medication Therapy Disease Management - Anticoagulation Patient: Dre Hitchcock Jody | : 1950 Subjective Contacts Contact Date/Time Type Contact Phone/Fax 05/14/2024 09:30 AM EST Phone (Outgoing) Dre Vera V (Self) [phone] (M) Left Message 05/14/2024 03:42 PM EST Phone (Outgoing) Bina Vera (Emergency Contact) [phone] (M) Patient-Reported Symptoms: Patient Findings Negatives: Signs/symptoms of thrombosis, Signs/symptoms of bleeding, Change in health, Change in alcohol use, Change in activity, Upcoming invasive procedure, Missed doses, Extra doses, Change in medications, Change in diet/appetite, Bruising Objective Current Warfarin Dose As of 05/14/2024 Warfarin maintenance plan: No maintenance plan INR Result As of 05/14/2024 INR goal: 2.0-3.0 INR used for dosin.0 (05/13/2024) Assessment & Plan Warfarin Plan As of 05/14/2024 Full warfarin instructions: 05/14: 2.5 mg; 05/15: 2.5 mg Next INR check: 05/16/2024 Repeat PT/INR in 2 day(s) Weekly dose: establishing Additional Dosing Information: Called and spoke to spouse. Discharged from [facility] 05/13. She is unsure if patient will have labs/treatment on 05/16. Would like to proceed with utilizing HH for lab draws, she will contact clinic if this changes. Description Pt would like to consider a home INR machine -- advised can try to submit paperwork after ~1 month of therapy (per most insurance requirements) Can use [facility] for INR draws (fax: [phone]) Faxed orders to [facility] Ok to use fingerstick Please fax INR results to [facility] at [phone] [facility] can be reached at [phone] with any questions or problems I spent a total of 20-29 minutes (exact time 20 mins) on the date of service in preparation, delivery, and documentation of the care provided to Dre Vera excluding any time spent in the performance of separately billed services or time spent by another provider/QHP. Brittney Villela [facility] Clinical Pharmacist 05/14/2024, 9:28 AM documented in this encounter Plan of Treatment Upcoming Encounters Date Type Department Care Team (Late st Contact Info) Description 05/16/2024 9:00 AM EST Pharmacy Pharmacy Hematology Oncology [facility] [address] [place] [address] [facility] Hem/Onc [address] [place] [address] 05/16/2024 10:00 AM EST Laboratory Laboratory Derrell Ronquillo [place] [address] [place] [phone] [place], Lab [facility] [address] [place] [address] 05/16/2024 11:00 AM EST Hem/Onc Treatment Hematology/Oncology Treatment, [place] [address] [place], [place] [phone] Shima, Chair 7 Hem Onc Scenery [address] [place] [address] 05/16/2024 5:40 PM EST Anticoagulation Pharmacy, [address] [place] [address] [place] [address] 05/21/2024 9:00 AM EST Office Visit Family Medicine [address] [place] [phone] Merry Uriostegui MD [address] [place] [address] [place] [phone] 05/23/2024 10:00 AM EST Laboratory Laboratory Scenery Shima [place] [address] [place] [phone] Shima, Lab Scenery [address] [place] [address] 05/23/2024 10:30 AM EST Hem/Onc Treatment Hematology/Oncology Treatment, [place] [address] [place] [phone] Shima, Chair 1 Hem Onc Scenery [address] [place] [address] 05/30/2024 10:00 AM EST Laboratory Laboratory Scenery Shima [place] [address] [place] [phone] Shima, Lab Scenery [address] [place] [address] 05/30/2024 11:00 AM EST Office Visit Hematology/Oncology Scenery Shima [place] [address] [place] [phone] Rebeca Aguillon CRNP [address] [place] [address] 05/30/2024 11:30 AM EST Hem/Onc Treatment Hematology/Oncology Treatment, [place] [address] [place] [address] Shima, Chair 8 Hem Onc Scenery [address] [place] [address] 07/17/2024 11:15 AM EDT Procedure Only Urology, [facility] [address] [place] [address] Duglas Tadeo MD [address] [place] [address] Scheduled Procedures Name Priority Associated Diagnoses Date/Ti [...] Date/Time Associated Diagnosis Comments OUTSIDE LAB-PT/INR Routine 05/13/2024 documented in this encounter Results * OUTSIDE LAB-PT/INR (05/13/2024) INR-OUTSIDE LAB 3.0 05/13/2024 Narrative Resulting Agency Comment [facility] us History Per Patient LABORATORY Final Result [...] Advance Directives occurred with: Patient Care Teams Wire Inserter Relationship Specialty Start Date End Date Rahul Tucker MD [address] [place] [address] [place] [address] PCP - General Family Medicine 08/03/18 documented as of this encounter"
--- OUTSIDE RECORDS SUMMARY | 2024-05-31 20:17 | External Medical Summary ---
Author Name Unknown Address Unknown Organization K01:LABORATORY [facility] - [address] [facility] [place] [address] Laboratory Report Ordering Provider Test Date Status DEANN LOYD 05/16/2024 11:44:00 Final Observation Date Value Abnormality Reference (Units ) Status BUN 05/16/2024 11:44:00 31 Above high normal 6-20 (mg/dL) Final Creatinine 05/16/2024 11:44:00 3.2 Above high normal 0.6-1.2 (mg/dL) Final Glomerular filtration rate/1.73 sq M.predicted [Volume Rate/Area] in Serum, Plasma or Blood by Creatinine-based formula (CKD-EPI) 05/16/2024 11:44:00 20 Below low normal >=60 (mL/min) Final eGFR is calculated based on the CKD-EPI 2020 equation. Sodium 05/16/2024 11:44:00 138 135-146 (m mol/L) Final Potassium 05/16/2024 11:44:00 3.7 3.5-5.1 (m mol/L) Final Cl 05/16/2024 11:44:00 99 98-107 (mm ol/L) Final CO2 05/16/2024 11:44:00 28 22-32 (mmo l/L) Final Anion gap 05/16/2024 11:44:00 11 7-15 (mmol /L) Final Glucose 05/16/2024 11:44:00 86 70-120 (mg /dL) Final Albumin 05/16/2024 11:44:00 1.9 Below low normal 3.8 -5.0 (g/dL) Final AST (Aspartate aminotransferase) 05/16/2024 11:44:00 39 10-50 (U/L) Fin al Alk Phos 05/16/2024 11:44:00 637 Above high normal 35 -130 (U/L) Final Bilirubin, Total 05/16/2024 11:44:00 <0.2 <=1 .2 (mg/dL) Final Calcium 05/16/2024 11:44:00 7.3 Below low normal 8.4 -10.2 (mg/dL) Final Protein 05/16/2024 11:44:00 4.0 Below low normal 6.0 -8.3 (g/dL) Final ALT (Alanine aminotransferase) 05/16/2024 11:44:00 34 10-50 (U/L) Sarthak baez Performing Location LABORATORY [facility] - [facility] [address]. [facility] [address]
--- OUTSIDE RECORDS SUMMARY | 2024-05-31 20:17 | External Medical Summary ---
Author Name Unknown Address Unknown Organization K01:LABORATORY [facility] [place] - [address] [facility] [place] [address] Laboratory Report Ordering Provider Test Date Status DEANN LOYD 05/16/2024 11:44:00 Final Observation Date Value Abnormality Reference (Units ) Status SYNC LEUKOCYTES IN BLOOD BY AUTOMATED COUNT 05/16/2024 11:44:00 4.94 4.00-10.80 (K/uL) Final Segs 05/16/2024 11:44:00 66.4 40.0-75.0 (%) Final Lymphs % 05/16/2024 11:44:00 18.2 18.0-42.0 (%) Final Monos 05/16/2024 11:44:00 14.8 Above high normal 1.0-11.0 (%) Final Eosinophils 05/16/2024 11:44:00 0.2 0.0-6.0 (%) Final Basos 05/16/2024 11:44:00 0.0 0.0-2.0 (%) Final Immature Granulocyte, Percent 05/16/2024 11:44:00 0.4 0.0-2.0 (%) Final Absolute Segs 05/16/2024 11:44:00 3.28 1.80-7.70 (K/uL) Final Lymphs, absolute 05/16/2024 11:44:00 0.90 Below low normal 1.00-4.80 (K/ul) Final Monos, Abs 05/16/2024 11:44:00 0.73 0.00-1.10 (K/uL) Final Eos, Abs 05/16/2024 11:44:00 0.01 0.00-0.70 (K/uL) Final Basos, Abs 05/16/2024 11:44:00 0.00 0.00-0.20 (K/uL) Final Immature Granulocytes, Number 05/16/2024 11:44:00 0.02 0.00-0.20 (K/uL) Final Performing Location LABORATORY [facility] [place] - [facility] [address]. [facility] [address]
--- OUTSIDE RECORDS SUMMARY | 2024-05-31 20:17 | External Medical Summary | Summary of Care ---
Author Name Unknown Organization [facility] Address [address] [place] [address] Phone [phone] Care Team Providers Care Washhouse Hand Name Role Phone Rahul Tucker MD Primary Care Provide r Reason for Visit * Reason Comments Medication Management Encounter Details Date Type Department Care Team (Late st Contact Info) Description 05/16/2024 9:00 AM [facility] Pharmacy Pharmacy Hematology Oncology [facility] [address] [place] [address] [facility] [place] Hem/Onc [address] [place], [place] [id number] Light chain (AL) amyloidosis (HCC)* Allergies Active [...] (Prevnar) 06/17/2014 Pneumococcal Conjugate Vacci ne, 20-valent ([id number]) 02/15/2022 Pneumococcal Polysaccharide PPV23 (Pneumovax) 05/19/2016 Seasonal [...] documented in this encounter Progress Notes * Dinora Suarez, [facility] - 05/16/2024 12:22 PM EST MEDICATION THERAPY MANAGEMENT CYCLOPHOSPHAMIDE TREATMENT EDUCATION NOTE Dre Vera [phone] Patient Phone Numbers Preferred Lab: [facility] Specialty Pharmacy: P ([facility] copy below into specialty comments) Treatment consent complete: yes Date: 04/10/24 Precertification complete: yes Date: 04/12/24 Communication: Chart review Treatment: Medication: Cyclophosphamide (Cytoxan) Indication/Staging/Diagnosis Code: 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 Jeane Dyson Additional Therapy: Bortezomib Daratumumab Dexamethasone Supportive Care Meds: Ondansetron Prochlorperazine Prophylactic Meds: Acyclovir Bisacodyl Miralax Senokot Docusate Relevant Chronic Medications: Category Medications Pertinent Notes Antihypertensives Torsemide 40mg daily Per PCP Anticoagulation ASA 81mg daily Pt hx Treatment History: None Interval History: Admitted to [facility] 05/05 - 05/13 for fatigue, weakness, confusion Changes to medication list since last visit? No Upcoming surgeries or procedures? No Does patient rely on caregiver for medication management? no Assessment and plan: Per discussion with Luc Diez RN all treatment on hold at present time. Pt has OV on 05/21 to discusstreatment plan Follow up: 05/21 OV; 05/23 MTM Dinora Suarez, PharmD, BCOP Ambulatory Clinical Pharmacist | Oral Chemotherapy Clinic [facility] 05/17/2024, 5:10 PM Monitoring Parameters: Estimated CrCl ESRD - [...] Urinalysis Date Protein result Next Due 03/20/24 6731 (24 hour urine);' 929 Treatment Parameters Per [...] 1,027 (H) Bilirubin, Total <=1.2 mg/dL 0.3 documented in this encounter Plan of Treatment Upcoming Encounters Date Type Department Care Team (Late st Contact Info) Description 05/21/2024 8:30 AM EST Laboratory Laboratory [facility] [place] Yasmin Ronquillo [address] [place] [phone] Tej Ronquillo [facility] [address] [place] [address] 05/21/2024 8:50 AM EST Anticoagulation Pharmacy, [address] [place] [address] [place] [address] 05/21/2024 9:00 AM EST Office Visit Family Medicine [address] [place] [phone] Merry Uriostegui MD [address] [place] [address] [place] [phone] 05/21/2024 9:00 AM EST Office Visit Hematology/Oncology [facility] [place] Yasmin Ronquillo [address] [place] [phone] Brian Dyson MD [address] [place] [address] 05/23/2024 10:00 AM EST Laboratory Laboratory [facility] [place] Yasmin Ronquillo [address] [place] [phone] Tej Ronquillo [address] [place] [address] 05/23/2024 10:30 AM EST Hem/Onc Treatment Hematology/Oncology Treatment, [place] [address] [place] [phone] Shima, Chair 1 Hem Onc Scenery [address] [place] [address] 05/23/2024 5:40 PM EST Anticoagulation Pharmacy, [address] [place] [address] [place] [address] 05/24/2024 9:00 AM EST Pharmacy Pharmacy Hematology Oncology [facility] [address] [place] [address] [facility] Hem/Onc [address] [place] [address] 05/30/2024 10:00 AM EST Laboratory Laboratory [facility] [place] [address] [place] [phone] Shima, Lab Scenery [address] [place] [address] 05/30/2024 11:00 AM EST Office Visit Hematology/Oncology [facility] [place] [address] [place] [phone] Rebeca Aguillon CRNP [address] [facility] [place] [address] 05/30/2024 11:30 AM EST Hem/Onc Treatment Hematology/Oncology Treatment, [place] [address] [place] [phone] Shima, Chair 8 Hem Onc Scenery [address] [place] [address] 07/17/2024 11:15 AM EDT Procedure Only Urology, [facility] [address] [facility] [place] [address] Duglas Tadeo MD [address] [facility] [place] [id number] Scheduled Procedures Name Priority Associated Diagnoses Date/Ti [...] Advance Directives occurred with: Patient Care Teams Washhouse Hand Relationship Specialty Start Date End Date Rahul Tucker MD [address] [place] [address] [place] [address] PCP - General Family Medicine 08/03/18 documented as of this encounter"
--- OUTSIDE RECORDS SUMMARY | 2024-05-31 20:17 | External Medical Summary | Summary of Care ---
Author Name Unknown Organization [facility] Address [address] [place] [address] Phone [phone] Care Team Providers Care Automatic Dispenser Mechanic Name Role Phone Rahul Tucker MD Primary Care Provide r Reason for Visit * Reason Comments Outpatient Testing Encounter Details Date Type Department Care Team (Late st Contact Info) Description 05/16/2024 12:20 PM EST Laboratory Laboratory [address] [place] [phone] , Specimen Drop Off [address] [place] [address] Amyloidosis, unspecified type (HCC); ESRD (end stage renal disease) (HCC); Light chain (AL) amyloidosis (HCC); Amyloidosis, unspecified (HCC); Hypertensive heart disease, malignant, with ESRD, acute management (HCC); 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[facility]) Allergies Active [...] (Prevnar) 06/17/2014 Pneumococcal Conjugate Vacci ne, 20-valent ([id number]) 02/15/2022 Pneumococcal Polysaccharide PPV23 (Pneumovax) 05/19/2016 Seasonal [...] Description 05/16/2024 5:40 PM EST Anticoagulation Pharmacy, [address] [place] [address] [place] [address] Anticoagulation management encounter*; GARY (acute kidney injury) (HCC); Light chain (AL) amyloidosis (HCC) 05/21/2024 8:50 AM EST Anticoagulation Pharmacy, [address] [place] [address] [place] [address] 05/21/2024 9:00 AM EST Office Visit Family Medicine [address] [place] [phone] Merry Uriostegui MD [address] [place] [address] [place] [address] 05/23/2024 10:00 AM EST Laboratory Laboratory Scenery [place] [address] [place] [phone] Shima, Lab Scenery [address] [place] [address] 05/23/2024 10:30 AM EST Hem/Onc Treatment Hematology/Oncolog y Treatment, [place] [address] [place] [phone] Shima, Chair 1 Hem Onc Scenery [address] [place] [address] 05/23/2024 5:40 PM EST [facility] Pharmacy, [address] [place] [address] [place] [address] 05/30/2024 10:00 AM EST Laboratory Laboratory Scenery Shima [place] [address] [place] [phone] Shima, Lab Scenery [address] [place] [address] 05/30/2024 11:00 AM EST Office Visit Hematology/Oncolog y Scenery [place] Yasmin Ronquillo [address] [place] [phone] Rebeca Aguillon CRNP [address] [facility] [place] [address] 05/30/2024 11:30 AM EST Hem/Onc Treatment Hematology/Oncolog y Treatment, [place] [address] [place] [phone] Shima, Chair 8 Hem Onc Scenery [address] [place] [address] 07/17/2024 11:15 AM EDT Procedure Only Urology, [facility] [place] [address] Duglas Tadeo MD [address] [place] [address] Pending Results Name Type Priority Associated Diagnoses [...] Advance Directives occurred with: Patient Care Teams Automatic Dispenser Mechanic Relationship Specialty Start Date End Date Rahul Tucker MD [address] [place] [address] [place] [phone] PCP - General Family Medicine 08/03/18 documented as of this encounter
--- OUTSIDE RECORDS SUMMARY | 2024-05-31 20:17 | External Medical Summary ---
Author Name Unknown Address Unknown Organization K01:LABORATORY C - [address] [place] [address] Laboratory Report Ordering Provider Test Date Status DEANN LOYD 05/16/2024 11:44:00 Final Observation Date Value Abnormality Reference (Units ) Status Phosphate 05/16/2024 11:44:00 5.2 Above high normal 2. 5-4.8 (mg/dL) Final Performing Location LABORATORY [facility] - [address] [place] [address]
--- OUTSIDE RECORDS SUMMARY | 2024-05-31 20:17 | External Medical Summary | Summary of Care ---
Author Name Unknown Organization [facility] Address [address] [place] [address] Phone [phone] Care Team Providers Care Interventional Tech Name Role Phone Rahul Tucker MD Primary Care Provide r Reason for Visit * Reason Comments Dosage Adjustment Via Phone (anticoag Cl inic) Encounter Details Date Type Department Care Team (Latest Contact Info) Description 05/16/2024 5:40 PM [facility] Anticoagulation Pharmacy, [address] [place] [address] [place] [address] Anticoagulation management encounter*; GARY (acute kidney injury) (HCC); Light chain (AL) amyloidosis ([facility]) Allergies Active Allergy Reactions Criticality Noted Date [...] (Prevnar) 06/17/2014 Pneumococcal Conjugate Vacci ne, 20-valent ([id number]) 02/15/2022 Pneumococcal Polysaccharide PPV23 (Pneumovax) 05/19/2016 Seasonal [...] this encounter Progress Notes * Brittney Villela, [facility] - 05/16/2024 12:12 PM EST Medication Therapy Disease Management - Anticoagulation Patient: Dre Vera | : 1950 Subjective Contacts Contact Date/Time Type Contact Phone/Fax 05/16/2024 11:49 AM EST Phone (Incoming) Dixon Mari [phone] 05/16/2024 12:22 PM EST Phone (Outgoing) Bina Vera (Emergency Contact) [phone] () Spoke to Bina Patient-Reported Symptoms: Patient Findings Negatives: Signs/symptoms of thrombosis, Signs/symptoms of bleeding, Change in health, Change in alcohol use, Change in activity, Upcoming invasive procedure, Missed doses, Extra doses, Change in medications, Change in diet/appetite, Bruising Objective Current Warfarin Dose As of 05/16/2024 Warfarin maintenance plan: No maintenance plan INR Result As of 05/16/2024 INR goal: 2.0-3.0 INR used for dosin.7 (05/16/2024) Assessment & Plan Warfarin Plan As of 05/16/2024 Full warfarin instructions: 05/16: 2.5 mg; 05/17: 5 mg; 05/18: 2.5 mg; 05/19: 5 mg; 05/20: 2.5 mg Next INR check: 05/21/2024 Repeat PT/INR in 5 day(s) Weekly dose: not changed Additional Dosing Information: Description Pt would like to consider a home INR machine -- advised can try to submit paperwork after ~1 month of therapy (per most insurance requirements) [facility] (fax: [phone]) 05/21: INR at clinic before PCP appointment 05/23: INR drawn by [facility] Faxed orders to [facility] Ok to use fingerstick Please fax INR results to [facility] at [phone] [facility] can be reached at [phone] with any questions or problems I spent a total of 20-29 minutes (exact time 20 mins) on the date of service in preparation, delivery, and documentation of the care provided to Dre Vera excluding any time spent in the performance of separately billed services or time spent by another provider/QHP. Brittney Villela [facility] Clinical Pharmacist 05/16/2024, 12:12 PM * Johanne Myers, water pumping station engineer - 05/16/2024 11:50 AM EST Caller's name: [facility] call back number(OFFICE NUMBER FOR ): [phone] Reason for call: nursing facility, [facility], calling with INR results. Result is 2.7 which was drawn on 05/16. Patient is not being discharged. Johanne Myers [facility] [address] [place] [address] Dr. Michele [address] [place] [address] [phone] 05/16/2024,11:50 AM documented in this encounter Plan of Treatment Upcoming Encounters Date Type Department Care Team (Late st Contact Info) Description 05/21/2024 8:50 AM EST Anticoagulation Pharmacy, [address] [place] [address] [place] [address] 05/21/2024 9:00 AM EST Office Visit Family Medicine [address] Donya [place] [phone] Merry Uriostegui MD [address] [place] [address] [place] [phone] 05/23/2024 10:00 AM EST Laboratory [facility] [place] [address] [place] [phone] Shima, Lab Scenery [address] [place] [address] 05/23/2024 10:30 AM EST Hem/Onc Treatment Hematology/Oncology Treatment, [place] [address] [place] [phone] Shima, Chair 1 Hem Onc Scenery [address] [place] [address] 05/23/2024 5:40 PM EST Anticoagulation Pharmacy, [address] [place] [address] [place] [address] 05/30/2024 10:00 AM EST Laboratory Laboratory Scenery [place] [address] [place] [phone] Shima Lab Scenery [address] [place] [address] 05/30/2024 11:00 AM EST Office Visit Hematology/Oncology [facility] [place] [address] [place] [phone] Rebeca Aguillon CRNP [address] [place], [place] [address], [place] [address] 05/30/2024 11:30 AM EST Hem/Onc Treatment Hematology/Oncology Treatment, [place] [address] [place] [address] Shima, Chair 8 Hem Onc Scenery [address] [place] [address] 07/17/2024 11:15 AM EDT Procedure Only Urology, [facility] [address] [place] [address] Duglas Tadeo MD 27 [facility] [place] [address] Scheduled Procedures Name Priority Associated Diagnoses Date/Ti [...] Date/Time Associated Diagnosis Comments OUTSIDE LAB-PT/INR Routine 05/16/2024 documented in this encounter Results * OUTSIDE LAB-PT/INR (05/16/2024) INR-OUTSIDE LAB 2.7 05/16/2024 us History Per Patient LABORATORY Final Result [...] Advance Directives occurred with: Patient Care Teams Interventional Tech Relationship Specialty Start Date End Date Rahul Tucker MD [address] [place] [address] [place] [address] PCP - General Family Medicine 08/03/18 documented as of this encounter"
--- OUTSIDE RECORDS SUMMARY | 2024-05-31 20:17 | External Medical Summary | Summary of Care ---
Author Name Unknown Organization [facility] Address [address] [place] [address] Phone [phone] Care Team Providers Care Primer Inserting Machine Operator Name Role Phone Rahul Tucker MD Primary Care Provide r Reason for Visit * Reason Onset Date Comments Advice 05/13/2024 Kiel Encounter Details Date Type Department Care Team (Late st Contact Info) Description 05/13/2024 Telephone Hematology/Oncology [facility] [address] [place] [facility] [place] [address] Services, Scheduling [address] [place] [address] Advice (Kiel ) Allergies Active Allergy Reactions Criticality Noted Date [...] (Prevnar) 06/17/2014 Pneumococcal Conjugate Vacci ne, 20-valent ([id number]) 02/15/2022 Pneumococcal Polysaccharide PPV23 (Pneumovax) 05/19/2016 Seasonal [...] Telephone Encounter - Hitesh Worthy RN - 05/13/2024 9:37 AM EST Per review of [facility] notes- Pt had runs of asymptomatic Vtach yesterday, placed on IV K and IV Mag. Unable to update ROS "due to cognition" Dr. Olvera - jolene regarding status update from patient . * Telephone Encounter - Shey Richardson OSA - 05/13/2024 8:41 AM EST Patient calling states the patient is having a lot of confusion and tremors since he had his chemo. Was admitted to the hospital, they said he was septic but couldn't find any source of infection, was hoping he would be ready to come home today. had a few episodes of a fib and his electrolyteswere not right. Just wanted to update dr olvera and see what his thoughts are. documented in this encounter Plan of Treatment Upcoming Encounters Date Type Department Care Team (Late st Contact Info) Description 05/16/2024 9:00 AM EST Pharmacy Pharmacy Hematology Oncology [place] [address] [place] [address] [facility] Hem/Onc [address] [place] [address] 05/16/2024 10:00 AM EST Laboratory Laboratory Scenery [place] [address] [place] [phone] Shima, Lab Scenery [address] [place] [address] 05/16/2024 11:00 AM EST Hem/Onc Treatment Hematology/Oncology Treatment, [place] [address] [place] [phone] Shima, Chair 7 Hem Onc Scenery [address] [place] [address] 05/16/2024 5:40 PM EST [facility], [address] [place] [address] [place] [address] 05/21/2024 9:00 AM EST Office Visit Family Medicine [address] [place] [phone] Merry Uriostegui MD [address] [place] [address] [place] [phone] 05/23/2024 10:00 AM EST Laboratory Laboratory Scenery [place] [address] [place] [phone] Shima, Lab Scenery [address] [place] [address] 05/23/2024 10:30 AM EST Hem/Onc Treatment Hematology/Oncology Treatment, [place] [address] [facility] [place] [phone] Shima, Chair 1 Hem Onc Scenery [address] [place] [address] 05/30/2024 10:00 AM EST Laboratory Laboratory Scenery [place] [address] [place] [phone] Shima, Lab Scenery 200 [facility] [place] [address] 05/30/2024 11:00 AM EST Office Visit Hematology/Oncology [facility] [address] [place] [phone] Rebeca Aguillon CRNP 400 [facility] [place] [phone] 05/30/2024 11:30 AM EST Hem/Onc Treatment Hematology/Oncology Treatment, [place] [address] [place] [phone] Shima, Chair 8 Hem Onc [facility] 200 [facility] [place] [address] 07/17/2024 11:15 AM EDT Procedure Only Urology, [facility] 132 [facility] [place] [address] Duglas Tadeo MD 27 [facility] [place] [address] Scheduled Procedures Name Priority Associated Diagnoses Date/Ti [...] Advance Directives occurred with: Patient Care Teams Primer Inserting Machine Operator Relationship Specialty Start Date End Date Rahul Tucker MD [address] [place] [address] [place] [address] PCP - General Family Medicine 08/03/18 documented as of this encounter
--- OUTSIDE RECORDS SUMMARY | 2024-05-31 20:17 | External Medical Summary | Summary of Care ---
Author Name Unknown Organization [facility] Address [address] [place] [address] Phone [phone] Care Team Providers Care Title Supervisor Name Role Phone Rahul Tucker MD Primary Care Provide r Reason for Visit * Reason Comments Outpatient Testing Encounter Details Date Type Department Care Team (Late st Contact Info) Description 05/16/2024 12:20 PM EST Laboratory Laboratory [address] [place] [phone] , Specimen Drop Off [address] [place] [address] Arrived Allergies Active Allergy Reactions Criticality Noted [...] (Prevnar) 06/17/2014 Pneumococcal Conjugate Vacci ne, 20-valent ([id number]) 02/15/2022 Pneumococcal Polysaccharide PPV23 (Pneumovax) 05/19/2016 Seasonal [...] Description 05/16/2024 5:40 PM EST Anticoagulation Pharmacy, [address] [place] [address] [place] [address] Anticoagulation management encounter*; GARY (acute kidney injury) (HCC); Light chain (AL) amyloidosis (HCC) 05/21/2024 8:50 AM EST Anticoagulation Pharmacy, [address] [place] [address] [place] [address] 05/21/2024 9:00 AM EST Office Visit Family Medicine [address] [place] [phone] Merry Uriostegui MD [address] [place] [address] [place] [phone] 05/23/2024 10:00 AM EST Laboratory Laboratory [place] [address] [place] [address] [place] [phone] Shima, Lab Scenery [address] [place] [address] 05/23/2024 10:30 AM EST Hem/Onc Treatment Hematology/Oncolog y Treatment, [place] [address] [place] [phone] Shima, Chair 1 Hem Onc Scenery [address] [place] [address] 05/23/2024 5:40 PM EST [facility], [address] [place] [address] [place] [address] 05/30/2024 10:00 AM EST Laboratory Laboratory Scenery Sh[place] [address] [place] [phone] Shima, Lab Scenery [address] [place] [address] 05/30/2024 11:00 AM EST Office Visit Hematology/Oncolog y [facility] [place] [address] [place] [phone] Rebeca Aguillon CRNP 400 [place] [address] 05/30/2024 11:30 AM EST Hem/Onc Treatment Hematology/Oncolog y Treatment, [place] [address] [place] [phone] Shima, Chair 8 Hem Onc Scenery [address] [place] [address] 07/17/2024 11:15 AM EDT Procedure Only Urology, [facility] 132 [facility] [place] [address] Duglas Tadeo MD 27 [facility] [place] [address] Scheduled Procedures Name Priority Associated Diagnoses Date/Ti [...] Advance Directives occurred with: Patient Care Teams Title Supervisor Relationship Specialty Start Date End Date Rahul Tucker MD [address] [place] [address] [place] [address] PCP - General Family Medicine 08/03/18 documented as of this encounter
--- OUTSIDE RECORDS SUMMARY | 2024-05-31 20:18 | External Medical Summary | Summary of Care ---
Author Name Unknown Organization [facility] Address [address] [place] [facility] [place] [address] Phone [phone] Care Team Providers Care Teletype Operator Name Role Phone Rahul Tucker MD Primary Care Provide r Reason for Visit * Reason Comments Dosage Adjustment Via Phone (anticoag Cl inic) Encounter Details Date Type Department Care Team (Latest Contact Info) Description 05/08/2024 5:10 PM [facility] Anticoagulation Pharmacy, [address] [place] [address] [place] [address] Anticoagulation management encounter*; GARY (acute kidney injury) (HCC); Light chain (AL) amyloidosis ([facility]) Allergies Active Allergy Reactions Criticality Noted Date Comments Azithromycin Hives 12/10/2010 documented as of this encounter (statuses as of 05/08/2024) Medications Finasteride 5 MG Oral Tablet (Proscar) [...] as of this encounter (statuses as of 05/08/2024) Active Problems Problem Noted Date Diagnosed Date [...] as of this encounter (statuses as of 05/08/2024) Resolved Problems Problem Noted Date Diagnosed Date Resolved Date CKD (chronic kidney disease) stage 5, GFR less than 15 ml/min 03/28/2024 04/22/2024 Carpal tunnel syndrome 06/17/201402/08 Allergic rhinitis 06/17/2014 02/08/2018 Adjustment disorder with depressed mood 12/10/2013 07/20/2017 Eczema 06/22/2012 07/20/2017 Epileptic seizure 12/10/2010 08/16/2018 documented as of this encounter (statuses as of 05/08/2024) Immunizations Name Administration Dates Next Due Pneumococcal Conjugate Vacc, 13 Valent (Prevnar) 06/17/2014 Pneumococcal Conjugate Vacci ne, 20-valent ([id number]) 02/15/2022 Pneumococcal Polysaccharide PPV23 (Pneumovax) 05/19/2016 Seasonal [...] Progress Notes * Brittney Villela RPh - 05/08/2024 10:47 AM EST Medication Therapy Disease Management - Anticoagulation Patient: Dre Vera | : 1950 Patient remains admitted at [facility] at this time. No mention of discharge at this time per chart review. Warfarin being continued. Call placed to f/u on possible discharge prior to the weekend. Anticoagulation tracker updated per [facility] records. Brittney Villela RPh, PharmD Clinical Pharmacist - Surgical Technology Instructor Medication Therapy Disease Management Clinic 05/08/2024, 10:49 AM [phone] documented in this encounter Plan of Treatment Upcoming Encounters Date Type Department Care Team (Late st Contact Info) Description 05/09/2024 9:00 AM EST Pharmacy Pharmacy Hematology Oncology [facility] [address] [place] [address] [facility] Hem/Onc [address] [place] [address] 05/09/2024 11:40 AM EST Laboratory Laboratory [place]min [place] [address] [place] [address] [place], Lab Scenery [address] [place], [place] [address] 05/09/2024 12:45 PM EST Hem/Onc Treatment Hematology/Oncology Treatment, [place] [address] [facility] [place], [place] [phone] Shima, Chair 7 Hem Onc Scenery [address] [place], [place] [address] 05/10/2024 5:10 PM EST Anticoagulation Pharmacy, [address] [place] [address] [place] [address] 05/14/2024 3:20 PM EST Office Visit Family Medicine [address] [place] [phone] Rahul Tucker MD [address] [place] [address] [place] [address] 05/16/2024 10:00 AM EST Laboratory Laboratory Scenery Shima [place] [address] [place] [phone] Shima Lab Scenery [address] [place], [place] [address] 05/16/2024 11:00 AM EST Hem/Onc Treatment Hematology/Oncology Treatment [place] 200 [facility] [place], [place] [phone] Shima, Chair 7 Hem Onc Scenery [address] [place], [place] [address] 05/23/2024 10:00 AM EST Laboratory Laboratory Scenery [place] [address] [place] [phone] Shima, Lab Scenery [address] [place], [place] [address] 05/23/2024 10:30 AM EST Hem/Onc Treatment Hematology/Oncology Treatment, [place] 200 [facility], [place] [phone] Shima, Chair 1 Hem Onc [facility] 200 [facility] [place] [address] 05/30/2024 10:00 AM EST Laboratory Laboratory [facility] [place] [address] [place] [phone] Shima, Lab [facility] 200 [facility] [place] [address] 05/30/2024 11:00 AM EST Office Visit Hematology/Oncology [facility] 200 [facility] [place] [phone] Rebeca Aguillon CRNP 400 [place] [address] 05/30/2024 11:30 AM EST [facility] 200 [facility], [place] [phone] Shima, Chair 8 Hem Onc [facility] 200 [facility] [place] [address] 07/17/2024 11:15 AM EDT Procedure Only Urology, [facility] 132 [facility] [place] [address] Duglas Tadeo MD [address] [place] [address] Scheduled Procedures Name Priority Associated Diagnoses Date/Ti [...] Date/Time Associated Diagnosis Comments OUTSIDE LAB-PT/INR Routine 05/08/2024 OUTSIDE LAB-PT/INR Routine 05/07/2024 OUTSIDE LAB-PT/INR Routine 05/06/2024 OUTSIDE LAB-PT/INR Routine 05/05/2024 documented in this encounter Results * OUTSIDE LAB-PT/INR (05/08/2024) INR-OUTSIDE LAB 1.8 05/08/2024 Narrative Resulting Agency Comment [facility] us History Per Patient LABORATORY Final Result * OUTSIDE LAB-PT/INR (05/07/2024) INR-OUTSIDE LAB 1.9 05/07/2024 Narrative Resulting Agency Comment [facility] us History Per Patient LABORATORY Final Result * OUTSIDE LAB-PT/INR (05/06/2024) INR-OUTSIDE LAB 2.2 05/06/2024 Narrative Resulting Agency Comment [facility] us History Per Patient LABORATORY Final Result * OUTSIDE LAB-PT/INR (05/05/2024) INR-OUTSIDE LAB 2.3 05/05/2024 us History Per Patient LABORATORY Final Result [...] Advance Directives occurred with: Patient Care Teams Teletype Operator Relationship Specialty Start Date End Date Rahul Tucker MD [address] [place] [address] [place] [address] PCP - General Family Medicine 08/03/18 documented as of this encounter"
--- OUTSIDE RECORDS SUMMARY | 2024-05-31 20:18 | External Medical Summary | Summary of Care ---
Author Name Unknown Organization [facility] Address [address] [facility] [place] [address] Phone [phone] Care Team Providers Care Skoog Patching Machine Operator Name Role Phone Rahul Tucker MD Primary Care Provide r Reason for Visit * Reason Onset Date Comments Hospital Follow-Up 05/13/2024 Encounter Details Date Type Department Care Team (Late st Contact Info) Description 05/13/2024 Telephone Family Medicine [address] [phone] Rahul Tucker MD [address] [place] [address] [place] [address] Hospital Follow-Up Allergies Active Allergy Reactions Criticality Noted Date Comments Azithromycin Hives 12/10/2010 documented as of this encounter (statuses as of 05/13/2024) Medications Finasteride 5 MG Oral Tablet (Proscar) [...] as of this encounter (statuses as of 05/13/2024) Active Problems Problem Noted Date Diagnosed Date [...] as of this encounter (statuses as of 05/13/2024) Resolved Problems Problem Noted Date Diagnosed Date Resolved Date CKD (chronic kidney disease) stage 5, GFR less than 15 ml/min 03/28/2024 04/22/2024 Carpal tunnel syndrome 06/17/201402/08 Allergic rhinitis 06/17/2014 02/08/2018 Adjustment disorder with depressed mood 12/10/2013 07/20/2017 Eczema 06/22/2012 07/20/2017 Epileptic seizure 12/10/2010 08/16/2018 documented as of this encounter (statuses as of 05/13/2024) Immunizations Name Administration Dates Next Due Pneumococcal Conjugate Vacc, 13 Valent (Prevnar) 06/17/2014 Pneumococcal Conjugate Vacci ne, 20-valent ([id number]) 02/15/2022 Pneumococcal Polysaccharide PPV23 (Pneumovax) 05/19/2016 Seasonal [...] No 04/18/2024 Does the household have a memorial medical centerlar source of income? (Household - [...] encounter Miscellaneous Notes * Telephone Encounter - Jena Akers RN - 05/13/2024 4:07 PM EST Pt cancelled with Dr Tucker for tomorrow, but has an appt on 05/20/24 with Amina Bergman * Telephone Encounter - Katie Nicole RN - 05/13/2024 3:03 PM EST Dre Vera was discharged from [facility] on 05/13/24. Please see the following recommendations for follow up care. Follow-up with your primary care physician within a week time and likely you will need labs CBC/CMP/magnesium/phosphorus. You were evaluated by neurology for altered mental status, follow-up with neurology in 2 to 4 weekstime upon discharge. Meningitis was ruled out. documented in this encounter Plan of Treatment Upcoming Encounters Date Type Department Care Team (Latest Contact Info) Description 05/13/2024 5:10 PM EST Anticoagulation Pharmacy, [address] [place] [address] [place] [address] Anticoagulation management encounter*; GARY (acute kidney injury) (HCC); Light chain (AL) amyloidosis (HCC) 05/15/2024 5:10 PM EST Anticoagulation Pharmacy, [address] [place] [address] [place] [address] 05/16/2024 9:00 AM EST Pharmacy Pharmacy Hematology Oncology [facility] [address] [place] [address] [facility] Hem/Onc [facility] [place] [address] 05/16/2024 10:00 AM EST Laboratory Laboratory Scenery [place] [place] [address] [place] [phone] Shima Lab Scenery [address] [place] [address] 05/16/2024 11:00 AM EST Hem/Onc Treatment Hematology/Oncolog y Treatment, [place] 200 [facility] [place] [phone] Shima, Chair 7 Hem Onc Scene [address] [place] [address] 05/20/2024 11:00 AM EST Office Visit Family Medicine [address] [place] [phone] Amina Bergman [address] [place] [address] 05/23/2024 10:00 AM EST Laboratory Laboratory [place]enery [place] [address] [place] [phone] Shima Lab Scenery [address] [place] [address] 05/23/2024 10:30 AM EST Hem/Onc Treatment Hematology/Oncolog y Treatment, [place] [address]ony[address] [place], [place] [phone] Shima, Chair 1 Hem Onc Scenery [address] [place] [address] 05/30/2024 10:00 AM EST Laboratory Laboratory [facility] [place] [address] [place] [phone] Shima, Lab Scenery 200 [facility] [place], [place] [address] 05/30/2024 11:00 AM EST Office Visit Hematology/Oncolog y [facility] [address] [place], [place] [phone] Rebeca Aguillon CRNP 400 [facility] [place] [address] 05/30/2024 11:30 AM EST Hem/Onc Treatment Hematology/Oncolog y Treatment, [place] 200 [facility] Donya [place], [place] [phone] Shima, Chair 8 Hem Onc [facility] [address] [place], [place] [address] 07/17/2024 11:15 AM EDT Procedure Only Urology, [facility] 132 [facility] [place] [address] Duglas Tadeo MD [address] [place] [address] Scheduled Procedures Name Priority Associated Diagnoses Date/Ti [...] Advance Directives occurred with: Patient Care Teams Skoog Patching Machine Operator Relationship Specialty Start Date End Date Rahul Tucker MD [address] [place] [address] [place] [address] PCP - General Family Medicine 08/03/18 documented as of this encounter
--- OUTSIDE RECORDS SUMMARY | 2024-05-31 20:18 | External Medical Summary | Summary of Care ---
Author Name Unknown Organization [facility] Address [address] [place] [facility] [place] [address] Phone [phone] Care Team Providers Care Fleet Administrative Assistant Name Role Phone Rahul Tucker MD Primary Care Provide r Reason for Visit * Reason Comments Dosage Adjustment Via Phone (anticoag Cl inic) Encounter Details Date Type Department Care Team (Latest Contact Info) Description 05/10/2024 5:10 PM [facility] Anticoagulation Pharmacy, [address] [place] [address] [place] [address] Anticoagulation management encounter*; GARY (acute kidney injury) (HCC); Light chain (AL) amyloidosis ([facility]) Allergies Active Allergy Reactions Criticality Noted Date Comments Azithromycin Hives 12/10/2010 documented as of this encounter (statuses as of 05/10/2024) Medications Finasteride 5 MG Oral Tablet (Proscar) [...] as of this encounter (statuses as of 05/10/2024) Active Problems Problem Noted Date Diagnosed Date [...] as of this encounter (statuses as of 05/10/2024) Resolved Problems Problem Noted Date Diagnosed Date Resolved Date CKD (chronic kidney disease) stage 5, GFR less than 15 ml/min 03/28/2024 04/22/2024 Carpal tunnel syndrome 06/17/201402/08 Allergic rhinitis 06/17/2014 02/08/2018 Adjustment disorder with depressed mood 12/10/2013 07/20/2017 Eczema 06/22/2012 07/20/2017 Epileptic seizure 12/10/2010 08/16/2018 documented as of this encounter (statuses as of 05/10/2024) Immunizations Name Administration Dates Next Due Pneumococcal Conjugate Vacc, 13 Valent (Prevnar) 06/17/2014 Pneumococcal Conjugate Vacci ne, 20-valent ([id number]) 02/15/2022 Pneumococcal Polysaccharide PPV23 (Pneumovax) 05/19/2016 Seasonal [...] Genoveva Vidal, RN * Do you have difficulty dressing [...] Progress Notes * Brittney Villela RPh - 05/10/2024 7:46 AM EST Medication Therapy Disease Management - Anticoagulation Patient: Dre Vera | : 1950 Patient remains admitted at [facility] at this time. No mention of discharge at this time per chart review. Warfarin being continued. Call placed to continue to f/u. Anticoagulation tracker updated per [facility] records. Brittney Villela RPh, PharmD Clinical Pharmacist - Planned Giving Officer Medication Therapy Disease Management [facility] 05/10/2024, 7:46 AM [phone] documented in this encounter Plan of Treatment Upcoming Encounters Date Type Department Care Team (Late st Contact Info) Description 05/13/2024 5:10 PM EST Anticoagulation Pharmacy, [address] [place] [address] [place] [address] 05/14/2024 3:20 PM EST Office Visit Family Medicine [address] [place] [phone] Rahul uTcker MD [address] [place] [address] [place] [address] 05/16/2024 9:00 AM EST Pharmacy Pharmacy Hematology Oncology [facility] [address] [place] [address] [facility] Hem/Onc [address] [place] [address] 05/16/2024 10:00 AM EST Laboratory Laboratory Scenery [facility] [address] [place] [phone] Shima, Lab Scenery [address] [facility] [place] [address] 05/16/2024 11:00 AM EST Hem[facility] [address] [facility] [phone] Shima, Chair 7 Hem Onc Scenery [address] [place] [address] 05/23/2024 10:00 AM EST Laboratory Laboratory [facility] [place] [address] [place] [address] Shima, Lab Scenery [address] [facility] [place], [place] [address] 05/23/2024 10:30 AM EST Hem/Onc Treatment Hematology/Oncology Treatment [place] [address] [place] [phone] Shima, Chair 1 Hem Onc Scenery [address] [place], [place] [address] 05/30/2024 10:00 AM EST Laboratory Laboratory Scenery [place] [address] [place] [phone] Shima, Lab Scenery [address] [facility] [place], [place] [address] 05/30/2024 11:00 AM EST Office Visit Hematology/Oncology Scenery [place] 200 [facility] [place] [phone] Rebeca Aguillon CRNP 400 [facility] [place] [address] 05/30/2024 11:30 AM EST Hem/Onc Treatment Hematology/Oncology Treatment, [place] [address] [facility] [address] [place], [place] [address] Shima, Chair 8 Hem Onc [facility] [place] [address] 07/17/2024 11:15 AM EDT Procedure Only Urology, [facility] [address] [place] [address] Duglas Tadeo MD [address] [place] [id number] Scheduled Procedures Name Priority Associated Diagnoses Date/Ti [...] Date/Time Associated Diagnosis Comments OUTSIDE LAB-PT/INR Routine 05/10/2024 OUTSIDE LAB-PT/INR Routine 05/09/2024 documented in this encounter Results * OUTSIDE LAB-PT/INR (05/10/2024) INR-OUTSIDE LAB 2.2 05/10/2024 Narrative Resulting Agency Comment [facility] us History Per Patient LABORATORY Final Result * OUTSIDE LAB-PT/INR (05/09/2024) INR-OUTSIDE LAB 2.1 05/09/2024 Narrative Resulting Agency Comment [facility] us History Per Patient LABORATORY Final [...] Advance Directives occurred with: Patient Care Teams Fleet Administrative Assistant Relationship Specialty Start Date End Date Rahul Tucker MD [address] [place] [address] [place] [address] PCP - General Family Medicine 08/03/18 documented as of this encounter"
--- OUTSIDE RECORDS SUMMARY | 2024-05-31 20:18 | External Medical Summary | Summary of Care ---
Author Name Unknown Organization [facility] Address [address] [place] [facility] [place] [place] [address] Phone [phone] Care Team Providers Care Estimator Printing Plate Making Name Role Phone Rahul Tucker MD Primary Care Provide r Reason for Visit * Reason Comments Dosage Adjustment Via Phone (anticoag Cl inic) Encounter Details Date Type Department Care Team (Latest Contact Info) Description 05/13/2024 5:10 PM [facility] Anticoagulation Pharmacy, [address] [place] [address] [place] [address] Anticoagulation management encounter*; GARY (acute kidney injury) [...] (Prevnar) 06/17/2014 Pneumococcal Conjugate Vacci ne, 20-valent ([id number]) 02/15/2022 Pneumococcal Polysaccharide PPV23 (Pneumovax) 05/19/2016 Seasonal [...] Progress Notes * Brittney Villela RPh - 05/13/2024 9:20 AM EST Medication Therapy Disease Management - Anticoagulation Patient: Dre Vera | : 1950 Patient remains admitted at [facility] at this time. Warfarin being continued. Call placed to continue tof/u later this week on possible discharge. (SNF vs HH?) Anticoagulation tracker updated per [facility] records. Brittney Villela RPh, PharmD Clinical Pharmacist - Supervisor [employer] Boat [employer] Medication Therapy Disease Management Clinic 05/13/2024, 9:22 AM [phone] documented in this encounter Plan of Treatment Upcoming Encounters Date Type Department Care Team (Late st Contact Info) Description 05/15/2024 5:10 PM EST Anticoagulation Pharmacy, [address] [place] [address] [place] [address] 05/16/2024 9:00 AM EST Pharmacy Pharmacy Hematology Oncology [address] [address] [facility] Hem/[place]c [facility] [place] [address] 05/16/2024 10:00 AM EST Laboratory Laboratory [facility] [address] [place], [place] [phone] Shima, Lab Scenery [address] [place], [place] [address] 05/16/2024 11:00 AM EST Hem[facility] 200 [facility], [place] [address] Shima, Chair 7 Hem Onc Scenery [address] [place], [place] [address] 05/23/2024 10:00 AM EST Laboratory Laboratory [facility] [address] [place], [place] [address] Shima, Lab Scenery [address] [place], [place] [address] 05/23/2024 10:30 AM EST Hem[facility]Onc [facility] 200 [facility], [place] [address] Shima, Chair 1 Hem Onc Scenery 200 [facility] [place], [place] [address] 05/30/2024 10:00 AM EST Laboratory Laboratory [facility] [place] [address] [place], [place] [address] Shima, Lab Scenery [address] [place] [address] 05/30/2024 11:00 AM EST Office Visit Hematology/Oncology [facility] [address] [place], [place] [address] Rebeca Aguillon CRNP 400 [facility] [place] [address] 05/30/2024 11:30 AM EST Hem/Onc Treatment Hematology/Oncology Treatment, [place] [address] [place] [address] Shima, Chair 8 Hem Onc Scenery [address] [place] [address] 07/17/2024 11:15 AM EDT Procedure Only Urology, [facility] [address] [place] [address] Duglas Tadeo MD [address] [place] [address] Scheduled Procedures Name Priority Associated Diagnoses Date/Ti [...] Date/Time Associated Diagnosis Comments OUTSIDE LAB-PT/INR Routine 05/12/2024 documented in this encounter Results * OUTSIDE LAB-PT/INR (05/12/2024) INR-OUTSIDE LAB 2.7 05/12/2024 Narrative Resulting Agency Comment [facility] us History Per Patient LABORATORY Final Result [...] Advance Directives occurred with: Patient Care Teams Estimator Printing Plate Making Relationship Specialty Start Date End Date Rahul Tucker MD [address] [place] [address] [place] [address] PCP - General Family Medicine 08/03/18 documented as of this encounter"
--- OUTSIDE RECORDS SUMMARY | 2024-05-31 20:18 | External Medical Summary | Summary of Care ---
Author Name Unknown Organization [facility] Address [address] [place] [facility] [place] [place] [address] Phone [phone] Care Team Providers Care Field Marketing Director Name Role Phone Rahul Tucker MD Primary Care Provide r Reason for Visit * Reason Comments Dosage Adjustment Via Phone (anticoag Cl inic) Encounter Details Date Type Department Care Team (Latest Contact Info) Description 05/06/2024 5:40 PM [facility] Anticoagulation Pharmacy, [address] [place] [address] [place] [address] Anticoagulation management encounter*; GARY (acute kidney injury) (HCC); Light chain (AL) amyloidosis ([facility]) Allergies Active Allergy Reactions Criticality Noted Date Comments Azithromycin Hives 12/10/2010 documented as of this encounter (statuses as of 05/06/2024) Medications Finasteride 5 MG Oral Tablet (Proscar) [...] as of this encounter (statuses as of 05/06/2024) Active Problems Problem Noted Date Diagnosed Date [...] as of this encounter (statuses as of 05/06/2024) Resolved Problems Problem Noted Date Diagnosed Date Resolved Date CKD (chronic kidney disease) stage 5, GFR less than 15 ml/min 03/28/2024 04/22/2024 Carpal tunnel syndrome 06/17/201402/08 Allergic rhinitis 06/17/2014 02/08/2018 Adjustment disorder with depressed mood 12/10/2013 07/20/2017 Eczema 06/22/2012 07/20/2017 Epileptic seizure 12/10/2010 08/16/2018 documented as of this encounter (statuses as of 05/06/2024) Immunizations Name Administration Dates Next Due Pneumococcal Conjugate Vacc, 13 Valent (Prevnar) 06/17/2014 Pneumococcal Conjugate Vacci ne, 20-valent ([id number]) 02/15/2022 Pneumococcal Polysaccharide PPV23 (Pneumovax) 05/19/2016 Seasonal [...] Assessment Author No 03/17/2024 6:46 PM Genoveva iVdal RN * Do you have difficulty dressing [...] Progress Notes * Brittney Villela RPh - 05/06/2024 4:04 PM EST Medication Therapy Disease Management - Anticoagulation Patient: Dre Vera | : 1950 Subjective Contacts Contact Date/Time Type Contact Phone/Fax 05/06/2024 04:01 PM EST Phone (Outgoing) Bina Vera (Emergency Contact) [phone] (M) Called and spoke with patient's spouse who states patient is currently admitted at [facility]. Presented to emergency room due to altered mental status on 05/05. INR upon admission was therapeutic. Per chartreview, coumadin to be continued at this time. Call placed to f/u later this week on discharge. Brittney Villela RPh, PharmD Clinical Pharmacist - Senior Water/Wastewater Engineer Medication Therapy Disease Management Clinic 05/06/2024, 4:06 PM [phone] * Fabi Raygoza CPhT - 05/06/2024 2:29 PM EST Called [facility] and spoke to Silva Ascencio stated patient is not admitted into any of their [facility] services. Please advise. Thank you, Gonsalo Raygoza Sleep Medicine Physician [facility] 05/06/2024, 2:30 PM documented in this encounter Plan of Treatment Upcoming Encounters Date Type Department Care Team (Late st Contact Info) Description 05/08/2024 5:10 PM EST Anticoagulation Pharmacy, [address] [place] [address] [place] [address] 05/09/2024 9:00 AM EST Pharmacy Pharmacy Hematology Oncology [facility] [address] [place] [address] [facility] Hem/Onc [address] [place] [address] 05/09/2024 11:40 AM EST Laboratory Laboratory Scenery [place] [address] [place] [phone] Shima Lab Scenery [address] [place] [address] 05/09/2024 12:45 PM EST Hem/Onc Treatment Hematology/Oncology Treatment, [place] [address] [place] [phone] Shima, Chair 7 Hem Onc Scenery [address] [place] [address] 05/14/2024 3:20 PM EST Office Visit Family Medicine [address] [place] [phone] Rahul Tucker MD [address] [place] [address] [place] [address] 05/16/2024 10:00 AM EST Laboratory Laboratory Scenery [place] [address] [place] [phone] Shima, Lab Scenery [address] [place] [address] 05/16/2024 11:00 AM EST Hem/Onc Treatment Hematology/Oncology Treatment, [place] 200 [facility], [place] [address] Shima, Chair 7 Hem Onc Scenery [address] [place], [place] [address] 05/23/2024 10:00 AM EST Laboratory Laboratory Scenery [place] [address] [place], [place] [address] Shima, Lab Scenery [address] [facility] [place], [place] [address] 05/23/2024 10:30 AM EST Hem/Onc Treatment Hematology/Oncology Treatment, [place] 200 [facility], [place] [address] Shima, Chair 1 Hem Onc Scenery [address] [place], [place] [address] 05/30/2024 10:00 AM EST [facility] [place] [address] [place], [place] [address] Shima, Lab Scenery [address] [facility] [place], [place] [address] 05/30/2024 11:00 AM EST Office Visit Hematology/Oncology [facility] [place] [address] [place], [place] [address] Rebeca Aguillon CRNP 400 [facility] [address] 05/30/2024 11:30 AM EST Hem/Onc Treatment Hematology/Oncology Treatment, [place] 200 [facility], [place] [address] Shima, Chair 8 Hem Onc Scenery [address] [place], [place] [address] 07/17/2024 11:15 AM EDT Procedure Only Urology, [facility] [address] [place] [id number] Duglas Tadeo MD 27 [place] [address] [...] Advance Directives occurred with: Patient Care Teams Field Marketing Director Relationship Specialty Start Date End Date Rahul Tucker MD [address] [place] [address] [place] [address] PCP - General Family Medicine 08/03/18 documented as of this encounter"
--- OUTSIDE RECORDS SUMMARY | 2024-05-31 20:18 | External Medical Summary | Summary of Care ---
Author Name Unknown Organization [facility] Address [address] [facility] [place] [address] Phone [phone] Care Team Providers Care Work Environment Safety Inspector Name Role Phone Rahul Tucker MD Primary Care Provide r Reason for Visit * Reason Comments Dosage Adjustment Via Phone (anticoag Cl inic) Encounter Details Date Type Department Care Team (Latest Contact Info) Description 05/08/2024 5:[address] [facility] Anticoagulation Pharmacy, [address] [place] [address] [place] [address] Anticoagulation management encounter*; GARY (acute kidney injury) [...] (Prevnar) 06/17/2014 Pneumococcal Conjugate Vacci ne, 20-valent ([id number]) 02/15/2022 Pneumococcal Polysaccharide PPV23 (Pneumovax) 05/19/2016 Seasonal [...] | : 1950 Patient remains admitted at [facility] at this time. No mention of discharge at this time per chart review. Warfarin being continued. Call placed to f/u on possible discharge prior to the weekend. Anticoagulation tracker updated per [facility] records. Brittney Villela RPh, PharmD Clinical Pharmacist - Logistics Analyst [facility] 05/08/2024, 10:49 AM [phone] documented in this encounter Plan of Treatment Upcoming Encounters Date Type Department Care Team (Late st Contact Info) Description 05/09/2024 9:00 AM EST Pharmacy Pharmacy Hematology Oncology [facility] [place] [address] [place] [address] [facility], [facility] Clinic Hem/Onc [address] [place] [address] 05/09/2024 11:40 AM EST Laboratory Laboratory [place] Yasmin Luna [address] [place] [address] [place], Lab Scenery [address] [place], [place] [address] 05/09/2024 12:45 PM EST Hem/Onc Treatment Hematology/Oncology Treatment, [place] [address] [facility] [place], [place] [phone] Shima, Chair 7 Hem Onc Scenery [address] [place], [place] [address] 05/10/2024 5:10 PM EST Anticoagulation Pharmacy, [address] [place] [address] [place] [address] 05/14/2024 3:20 PM EST Office Visit Family Medicine [address] [place] [phone] Rahul Tucker MD [address] [place] [address] [place] [address] 05/16/2024 10:00 AM EST Laboratory Laboratory Scenery Shima [place] [address] [place] [phone] Shima Lab Scenery [address] [place], [place] [address] 05/16/2024 11:00 AM EST Hem/Onc Treatment Hematology/Oncology Treatment [place] 200 [facility] [place], [place] [address] Shima, Chair 7 Hem Onc Scenery [address] [place], [place] [address] 05/23/2024 10:00 AM EST Laboratory Laboratory Scenery [place] [address] [place] [phone] Shima, Lab Scenery [address] [place], [place] [address] 05/23/2024 10:30 AM EST Hem/Onc Treatment Hematology/Oncology Treatment, [place] 200 [facility], [place] [phone] Shima, Chair 1 Hem Onc [facility] [place] [address] 05/30/2024 10:00 AM EST Laboratory Laboratory [facility] [place] [address] [place] [phone] Shima, Lab [facility] [place] [address] 05/30/2024 11:00 AM EST Office Visit Hematology/Oncology [facility] 200 [facility] [place] [phone] Rebeca Aguillon CRNP 400 [facility] [place] [address] 05/30/2024 11:30 AM EST Hem[facility] 200 [facility], [place] [phone] Shima, Chair 8 Hem Onc [facility] 200 [facility] [place] [address] 07/17/2024 11:15 AM EDT Procedure Only Urology, [facility] 132 [facility] [place] [address] Duglas Tadeo MD [address] [place] [address] Scheduled Procedures Name Priority Associated Diagnoses Date/Ti [...] LAB 1.8 05/08/2024 Narrative Resulting Agency Comment [facility] us History Per Patient LABORATORY Final Result * OUTSIDE LAB-PT/INR (05/07/2024) INR-OUTSIDE LAB 1.9 05/07/2024 Narrative Resulting Agency Comment [facility] us History Per Patient LABORATORY Final Result * OUTSIDE LAB-PT/INR (05/06/2024) INR-OUTSIDE LAB 2.2 05/06/2024 Narrative Resulting Agency Comment [facility] us History Per Patient LABORATORY [...] Advance Directives occurred with: Patient Care Teams Work Environment Safety Inspector Relationship Specialty Start Date End Date Rahul Tucker MD [address] [place] [address] [place] [address] PCP - General Family Medicine 08/03/18 documented as of this encounter"
--- OUTSIDE RECORDS SUMMARY | 2024-05-31 20:18 | External Medical Summary | Summary of Care ---
Author Name Unknown Organization [facility] Address [address] [facility] [place] [address] Phone [phone] Care Team Providers Care Marketing Development Specialist Name Role Phone Rahul Tucker MD Primary Care Provide r Reason for Visit * Reason Onset Date Comments Hospital Follow-Up 05/13/2024 Encounter Details Date Type Department Care Team (Late st Contact Info) Description 05/13/2024 Telephone Pharmacy, [address] [place] [address] [place] [address] Hospital Follow-Up Allergies Active Allergy Reactions Criticality [...] (Prevnar) 06/17/2014 Pneumococcal Conjugate Vacci ne, 20-valent ([id number]) 02/15/2022 Pneumococcal Polysaccharide PPV23 (Pneumovax) 05/19/2016 Seasonal [...] Telephone Encounter - Brittney Villela RPh - 05/13/2024 4:36 PM EST [facility] records reviewed, patient remains admitted at this time. Call placed to f/u on discharge tomorrow. Brittney Villela RPh, PharmD Clinical Pharmacist - Owner Operator Medication Therapy Disease Management [facility] 05/13/2024, 4:36 PM [phone] * Telephone Encounter - Katie Nicole RN - 05/13/2024 3:06 PM EST Follow-up with Coumadin clinic in 3 to 5 days time upon discharge for ongoing management of your warfarin doses. Continue your dialysis as prior. Discharge from [facility] 05/13/24 with Home Health. documented in this encounter Plan of Treatment Upcoming Encounters Date Type Department Care Team (Latest Contact Info) Description 05/13/2024 5:10 PM EST Anticoagulation Pharmacy, [address] [place] [address] [place] [address] Anticoagulation management encounter*; GARY (acute kidney injury) (HCC); Light chain (AL) amyloidosis (HCC) 05/14/2024 5:10 PM EST Anticoagulation Pharmacy, [address] [place] [address] [place] [address] 05/16/2024 9:00 AM EST Pharmacy Pharmacy Hematology Oncology [facility] [address] [place] [address] [facility] Hem/Onc [address] [place] [address] 05/16/2024 10:00 AM EST Laboratory Laboratory Scenery [place] [address] [place] [phone] Shima, Lab Scenery [address] [place] [address] 05/16/2024 11:00 AM EST Hem/Onc Treatment Hematology/Oncolog y Treatment, [place] [address] [place] [phone] Shima, Chair 7 Hem Onc Scenery [address] [place] [address] 05/20/2024 11:00 AM EST Office Visit Family Medicine [address] [place] [phone] [place] [address] 05/23/2024 10:00 AM EST Laboratory Laboratory Scenery Shima [place] [address] [place] [phone] Shima Lab Scenery [address] [place] [address] 05/23/2024 10:30 AM EST Hem/Onc Treatment Hematology/Oncolog y Treatment, [place] 200 [facility] [place] [phone] Shima, Chair 1 Hem Onc Scenery 200 [facility] [place] [address] 05/30/2024 10:00 AM EST Laboratory Laboratory [facility] [place] [address] [place] [phone] Sh[place], Lab [facility] 200 [facility] [place] [address] 05/30/2024 11:00 AM EST Office Visit Hematology/Oncolog y [facility] [place] 200 [facility] [place] [phone] Rebeca Aguillon CRNP 400 [facility] [place] [address] 05/30/2024 11:30 AM EST Hem/Onc Treatment Hematology/Oncolog y Treatment, [place] 200 [facility], [place] [phone] Shima, Chair 8 Hem Onc [facility] 200 [facility] [place] [address] 07/17/2024 11:15 AM EDT Procedure Only Urology, [facility] 132 [facility] [place] [address] Duglas Tadeo MD [address] [place] [address] Scheduled Procedures Name Priority Associated Diagnoses Date/Ti [...] Advance Directives occurred with: Patient Care Teams Marketing Development Specialist Relationship Specialty Start Date End Date Rahul Tucker MD [address] [place] [address] [place] [phone] PCP - General Family Medicine 08/03/18 documented as of this encounter
--- OUTSIDE RECORDS SUMMARY | 2024-05-31 20:18 | External Medical Summary | Summary of Care ---
Author Name Unknown Organization [facility] Address [address] [place] [address] Phone [phone] Care Team Providers Care Filling Machine Operator Name Role Phone Rahul Tucker MD Primary Care Provide r Encounter Details Date Type Department Care Team (Late st Contact Info) Description 05/08/2024 Result Scan Unspecified Department Brett Matias, DO [address] [facility] [address] <No scans attached> Allergies Active Allergy Reactions Criticality Noted Date [...] at bedtime. 90 Capsule 3 04/26/20 Active Torsemide 20 MG Oral Tablet (Demadex) [...] for Pain, Severe. 20 Tablet 04/30/20 Active documented as of this encounter (statuses [...] (Prevnar) 06/17/2014 Pneumococcal Conjugate Vacci ne, 20-valent ([id number]) 02/15/2022 Pneumococcal Polysaccharide PPV23 (Pneumovax) 05/19/2016 Seasonal [...] No 04/18/2024 Does the household have a [facility] source of income? (Household - for ages [...] (Latest Contact Info) Description 05/14/2024 5:10 PM EST Anticoagulation Pharmacy, [address] [place] [address] [place] [address] GARY (acute kidney injury) (HCC)*; Light chain (AL) amyloidosis (HCC) 05/16/2024 9:00 AM EST Pharmacy Pharmacy Hematology Oncology [place] [address] [place] [address] [facility] Hem/Onc [facility] [place] [address] 05/16/2024 10:00 AM EST [facility] [place] [address] [place] [phone] Shima, Lab Scenery [address] [place] [address] 05/16/2024 11:00 AM EST Hem/Onc Treatment Hematology/Oncology Treatment, [place] [address] [facility] [place] [phone] Shima, Chair 7 Hem Onc Scenery [address] [place] [address] 05/21/2024 9:00 AM EST Office Visit Family Medicine [address] [place] [phone] Merry Uriostegui MD [address] [place] [address] [place] [phone] 05/23/2024 10:00 AM EST [facility] [address] [place] [phone] Shima, Lab Scenery [address] [place] [address] 05/23/2024 10:30 AM EST Hem[facility]c [facility] [phone] Shima, Chair 1 Hem Onc Scenery [address] [place] [address] 05/30/2024 10:00 AM EST Laboratory Laboratory [facility] [place] [address] [place] [phone] Shiam, Lab Scenery [address] [place] [address] 05/30/2024 11:00 AM EST Office Visit Hematology/Oncology [facility] [address] [place] [phone] Rebeca Aguillon CRNP [address] [facility] [place] [address] 05/30/2024 11:30 AM EST Hem[facility]Onc [facility] [phone] Shima, Chair 8 Hem Onc Scenery [address] [place] [address] 07/17/2024 11:15 AM EDT Procedure Only Urology, [facility] 132 [facility] [place] [address] Duglas Tadeo MD [address] [place] [address] Scheduled Procedures Name Priority Associated Diagnoses Date/Ti [...] Procedure Name Priority Date/Time Associated Diagnosis Comments PROCEDURE SCANNED RESULT 05/08/2024 documented in this encounter Results * PROCEDURE SCANNED RESULT (05/08/2024) 05/08/2024 Brett Matias DO SURGERY Ambreen l Result documented in this encounter Advance Directives * Full Code (Latest Code Status on File) Date Activated Date Inactivated Comments 03/17/2024 7:37 PM 03/29/2024 7:58 PM This order reflects the patients wishes and were consensually agreed upon. Question Answer Comments Discussion of Advance Directives occurred with: Patient Care Teams Filling Machine Operator Relationship Specialty Start Date End Date Rahul Tucker MD [address] [place] [address] [place] [address] PCP - General Family Medicine 08/03/18 documented as of this encounter
--- OUTSIDE RECORDS SUMMARY | 2024-05-31 20:18 | External Medical Summary | Summary of Care ---
Author Name Unknown Organization [facility] Address [address] [place] [address] Phone [phone] Care Team Providers Care Vp Cardiovascular Name Role Phone Rahul Tucker MD Primary Care Provide r Reason for Visit * Reason Onset Date Comments Advice 05/14/2024 Encounter Details Date Type Department Care Team (Late st Contact Info) Description 05/14/2024 Telephone Urology Geo Larios [address] [place] [address] Duglas Tadeo MD [address] [place] [address] Advice Allergies Active Allergy Reactions Criticality Noted [...] (Prevnar) 06/17/2014 Pneumococcal Conjugate Vacci ne, 20-valent ([id number]) 02/15/2022 Pneumococcal Polysaccharide PPV23 (Pneumovax) 05/19/2016 Seasonal [...] of Assessment Author No 03/17/2024 6:46 PM eGnoveva Vidal RN * Are you blind or do you have serious difficulty seeing, even when wearing glasses? Answer Date of Assessment Author No 03/17/2024 6:46 PM Genvoeva Vidal RN * Do you have serious [...] encounter Miscellaneous Notes * Telephone Encounter - Libby De La Cruz LPN - 05/14/2024 11:16 AM EST There is already an encounter in regarding. Will document there. * Telephone Encounter - Fatimah Ng MED ASSIST - 05/14/2024 11:05 AM EST Monica a nurse from [facility] got transferred to [place]. She would like to talk to a nurse about removing pt's cath. Please call her back at [phone]. Thank you! documented in this encounter Plan of Treatment Upcoming Encounters Date Type Department Care Team (Latest Contact Info) Description 05/14/2024 5:10 PM EST Anticoagulation Pharmacy, [address] [place] [address] [place] [address] GARY (acute kidney injury) (HCC)*; Light chain (AL) amyloidosis (HCC) 05/16/2024 9:00 AM EST Pharmacy Pharmacy Hematology Oncology [facility] [address] [place] [address] [facility] Hem/Onc [address] [place] [address] 05/16/2024 10:00 AM EST Laboratory Laboratory Scenery [facility] [address] [place] [phone] Shima, Lab Scenery [address] [facility] [place] [address] 05/16/2024 11:00 AM EST Hem[facility]c [facility] [address] [facility], [place] [phone] Shima, Chair 7 Hem Onc Scenery [address] [place] [address] 05/21/2024 9:00 AM EST Office Visit Family [address] [phone] Merry Uriostegui MD [address] [place] [address] [place] [phone] 05/23/2024 10:00 AM EST Laboratory Laboratory [facility] [place] [address] [place] [phone] Shima, Lab Scenery [address] [facility], [place] [address] 05/23/2024 10:30 AM EST Hem/Onc Treatment Hematology/Oncology Treatment, [place] 200 [facility] [phone] Shima, Chair 1 Hem Onc Scenery [address] [place] [address] 05/30/2024 10:00 AM EST Laboratory Laboratory [facility] [address] [place] [phone] Shima, Lab Scenery [address] [facility] [place] [address] 05/30/2024 11:00 AM EST Office Visit Hematology/Oncology [facility] [place] [address] [place] [phone] Rebeca Aguillon CRNP 400 [facility] [place] [phone] 05/30/2024 11:30 AM EST Hem/Onc Treatment Hematology/Oncology Treatment, [place] [address] [place] [phone] Shima, Chair 8 Hem Onc [facility] 200 [facility] [place] [address] 07/17/2024 11:15 AM EDT Procedure Only Urology, [facility] [address] [place] [address] Duglas Tadeo MD 27 [facility] [place] [phone] Scheduled Procedures Name Priority Associated Diagnoses Date/Ti [...] Directives occurred with: Patient Care Teams Vp Cardiovascular Relationship Specialty Start Date End Date Rahul Tucker MD [address] [place] [address] [place] [address] PCP - General Family Medicine 08/03/18 documented as of this encounter
[2024-05-31] MEDS: WARFARIN SOD 5 MG TAB PO SCH (21:55)
[2024-05-31] MEDS: MIDODRINE HCL 10 MG TAB PO SCH (21:55)
[2024-06-01 06:48] LABS: Basophils # (auto) 0.01 K/uL (0.00-0.20); Basophils % (auto) 0.2 %; Hematocrit (blood only) 30.6 % (42.0-52.0); Hemoglobin 10.3 g/dl (14.0-18.0); Immature Granulocytes # (auto) 0.02 K/uL (0.01-0.20); Immature Granulocytes % (auto) 0.4 %; Lymphocytes # (auto) 0.66 K/uL (1.20-3.40); Lymphocytes % (auto) 12.5 %; Mean Corpuscular Hemoglobin 31.5 pg (25.0-34.0); Mean Corpuscular Hgb Conc 33.7 g/dL (32.0-36.0); Mean Corpuscular Volume 93.6 fL (80.0-100.0); Monocytes # (auto) 1.01 K/uL (0.11-0.59); Monocytes % (auto) 19.1 %; Neutrophils # (auto) 3.58 K/uL (1.40-6.50); Neutrophils % (auto) 67.8 %; Nucleated RBC % (auto) 1.9 %; Platelet Count 477 K/uL (130-400); RDW Coefficient of Variation 21.3 % (11.5-14.5); RDW Standard Deviation 69.4 fL (36.4-46.3); Red Blood Count 3.27 M/uL (4.70-6.10); White Blood Count 5.28 K/ul (4.8-10.8)
[2024-06-01 07:17] LABS: Albumin Globulin Ratio 0.8 (0.9-2); BUN Creatinine Ratio 17.6 (10-20); Bilirubin,Total 0.4 mg/dl (0.2-1.0); Creatinine Clr Calc Pharmacy 16.3 ml/min; Globulin 2.5 gm/dl (2.5-4.0); Potassium 3.4 mmol/L (3.5-5.1); Total Protein 4.5 gm/dl (6.0-8.3)
[2024-06-01 07:28] LABS: INR 1.9 (0.9-1.1); Prothrombin Time 19.3 Seconds (9.0-12.0)
[2024-06-01] MEDS: ASPIRIN 81 MG ECTAB PO SCH (08:15)
[2024-06-01] MEDS: FINASTERIDE 5 MG TAB PO SCH (08:15)
[2024-06-01] MEDS: THIAMINE HCL 100 MG TAB PO SCH (08:15)
[2024-06-01] MEDS: FOLIC ACID 1 MG TAB PO SCH (08:15)
[2024-06-01] MEDS: LATANOPROST 0.005% OP SOLN 2.5 ML BTL OPB SCH (08:15)
[2024-06-01 08:16] LABS: Anisocytosis Present; Dohle Bodies 1+; Polychromasia 1+; Target Cells 1+
[2024-06-01] MEDS: HEPARIN SOD (PORCINE) 1000 UNIT/ML IV SCH (11:18)
[2024-06-01] MEDS: HEPARIN SOD (PORCINE) 1000 UNIT/ML IV ONE (11:18)
--- NOTE | 2024-06-01 14:37 | Hospitalist Progress Note ---
Date of Service June 01, 2024 Assessment & Plan (1) AMS (altered mental status): (2) Syncope: (3) Multiple myeloma without remission: Plan: Patient is 74 year old male with PMH ESRD on HD, multiple myeloma, cirrhosis, Buerger disease, PVD, Burger's disease, BPH, AL light chain amyloidosis, history left above knee amputation, history of pulmonary embolism presented to ER with c/o reported syncope and hypotension at dialysis 05/31. #AMS #Possible metabolic encephalopathy #Syncopal episode #History Hypotension #Multiple myeloma #Generalized weakness #Ambulatory dysfunction Recent hospitalization for AMS after chemo which reports mental status returned to baseline. 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 reports mental status improving over past 2 days. In ER afebrile, vitals stable. WBC: 4.4, H/H: 10/32, INR: 1.9, potassium: 3.4 CT head: No acute intracranial abnormality CXR: No acute infiltrate NH3 level wnl, MRSA neg send infxus w/u, resp biofire, bl cx and UA--- follow up Suspect AMS/encephalopathy secondary to chemo Monitor vitals Continue home midodrine Hold home torsemide at this time and monitor PT/OT eval. Previously deferred rehab but states would be open to it now if needed CBC, BMP in am #Elevated troponin Trop downtrending 98-->88--> 82 EKG: Sinus rhythm, LAFB No chest pain per pt prefers minimal further workup if possible #ESRD On HD on MWF schedule Nephrology consult for assistance with HD #Cirrhosis Noted on prior abdominal imaging Ammonia level WNL Monitor #Buerger Disease #History PVD #History prior PE Continue aspirin, warfarin INR: 1.9 Monitor INR #BPH History requiring Sousa cath in past. No current Sousa cath. Requires self cath by (who prior nurse) typically once daily Bladder scan as needed DVT Prophylaxis: On warfarin, monitor INR Full Code as per discussion with pt's . She states will have ongoing conversation and consideration in the future Follows with Dr Tucker for routine care Admission and Anticipated Discharge Date Admission Date: May 31, 2024 Subjective Patient was seen and examined at bedside. Patient was lying in bed, on 3 L nasal cannula, undergoing hemodialysis. Patient oriented to self, has clear speech when speaking, appears confused, is seen moving his bilateral upper extremity and RLE. Patient denies visual changes and neck pain, ROS not able in detail due to patient's overall drowsy status. Physical Exam Physical Exam: Constitutional: Closing his eyes; opens intermittently with his name. Bruising present on right cheek. follows simple commands Respiratory: Bilateral vesicular breath sound. On 3 L NC O2. Cardiovascular: RRR, no murmur, no edema Vessels: no JVD or carotid bruit Chest: normal inspection of chest Abdomen: normal bowel sounds, soft, nontender, no hepatosplenomegaly Musculoskeletal: Lt knee BKA. No joints Neurologic: PERRL, EOMI, grossly moves all extremities. Results & Data Results & Data Vital Signs (Past 12 Hours) Vital Signs Temp Pulse Pulse Pulse Resp BP BP 06/01/24 13:27 36.4 C L 73 18 99/53 L 06/01/24 13:11 77 06/01/24 13:08 36.5 C 66 06/01/24 13:00 77 79/49 L 06/01/24 12:30 77 94/50 L 06/01/24 12:00 82 100/44 L 06/01/24 11:30 64 80/50 L 06/01/24 11:00 66 77/46 L 06/01/24 10:30 72 84/57 L 06/01/24 10:00 74 98/58 L 06/01/24 09:33 65 113/57 L 06/01/24 09:28 36.4 C L 71 06/01/24 08:00 06/01/24 07:38 36.2 C L 77 16 06/01/24 06:48 89 06/01/24 02:42 36.5 C 74 16 BP Pulse Ox O2 Del Method O2 Flow Rate 06/01/24 13:27 96 Nasal Cannula 3 06/01/24 13:11 06/01/24 13:08 106/57 L 06/01/24 13:00 06/01/24 12:30 06/01/24 12:00 06/01/24 11:30 06/01/24 11:00 06/01/24 10:30 06/01/24 10:00 06/01/24 09:33 06/01/24 09:28 06/01/24 08:00 Nasal Cannula 3 06/01/24 07:38 102/59 L 98 Nasal Cannula 3 06/01/24 06:48 06/01/24 02:42 111/60 98 Room Air (2) Syncope Syncope type: unspecified Qualified Code(s): R55 - Syncope and collapse
[2024-06-01] MEDS: INFLUENZA VACC TS2024-25(65y+)/PF (IIV3) 0.5mL Syr IM ONE (15:10)
--- NOTE | 2024-06-01 16:50 | Nephrology Consultation ---
Date of Consultation June 01, 2024 Assessment & Plan (1) ESRD (end stage renal disease) on dialysis: new to dialysis as of March 2024; after/ as he was starting HD, he was diagnosed w/ AL amyloidosis AND IgG kappa paraproteinemia AND hypercoag state chemistries ok > ran on 3K bath -HD today > tolerated 1L UF; midodrine dependent >reeval for HD Saturday 06/03 >>>he'll need to start coming to HD on a lift pad/ wheelchair after d/c unless dramatic change in functional status >> pls alert case mgt so we can plan; may need jose antonio lift at home (2) Immunocompromised: b/c he's on chemotherapy as well. He saw heme 05/21 > continued on regimen started 1/ of weekly velcade, weekly cyclophosphamide (held after 05/21 heme visit), darzalex faspro weekly, weekly decadron. CYC for now on hold (3) AL amyloidosis: his paraproteinemia/amyloidosis involves the kidneys w/ possible involvement of heart, liver, and autonomic nervous system; oncology does not r/o its contributing to his hypotension and syncope (4) Hypercoagulable state: on coumadin; he lost a leg in March d/t arterial thrombus; also has PE; h/o Buergers (5) Acute metabolic encephalopathy: ? if this is due to chemo or ? stroke or atypical infection; continue supportive care History of Present Illness Reason for Consultation: ESRD on HD Requesting Physician: Dr Lopez Attending Physician: Pearl Matthew MD History of Present Illness 74 y/o M whom I'm asked to see for ESRD on HD was admitted yesterday afternoon for altered mental status and worsening weakness after I sent him from dialysis b/c he presented w/ BP 73/45 and too lethargic to give ROS or help transfer. 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 He started coumadin for hypercoagulability last month. he was admitted here earlier this month for encephalopathy as well. his paraproteinemia/amyloidosis involves the kidneys w/ possible involvement of heart, liver, and autonomic nervous system; oncology does not r/o its contributing to his hypotension and syncope. He saw heme 05/21 > continued on regimen started 1/2 of weekly velcade, weekly cyclophosphamide (held after 05/21 heme visit), darzalex faspro weekly, weekly decadron. since d/c he has seen oncology and is continuing his CTX except CYC for now. He has been restless and confused all day. He had HD today under my orders and tolerated 1L UF. He is awake and alert; he denies dyspnea or nausea; he has minimal appetite. he denies uncontrolled pain. Allergies Allergy/AdvReac Type Severity Reaction Status Date / Time dorzolamide Allergy Severe eyes Verified 05/05/24 20:55 swollen azithromycin Allergy Intermediate Rash Verified 05/05/24 20:55 Home Medications Medication Instructions Recorded Confirmed Type finasteride 5 mg tablet 5 mg PO DAILY 03/13/24 05/31/24 History latanoprost 0.005 % eye drops 1 drp OPB DAILY 03/13/24 05/31/24 History aspirin 81 mg tablet,delayed 81 mg PO QAM 05/05/24 05/31/24 History release folic acid 1 mg tablet 1 mg PO QAM #30 tabs 05/13/24 05/31/24 Rx thiamine HCl (vitamin B1) 100 mg 100 mg PO QAM #30 tabs 05/13/24 05/31/24 Rx tablet midodrine 10 mg tablet 10 mg PO TID #270 tabs 05/24/24 05/31/24 Rx diphenoxylate-atropine 2.5 1 tab PO QID PRN Diarrhea 05/31/24 05/31/24 History mg-0.025 mg tablet (Lomotil) midodrine 10 mg tablet 15 mg PO UD 05/31/24 05/31/24 History torsemide 100 mg tablet 100 mg PO UD 05/31/24 05/31/24 History warfarin 5 mg tablet 5 mg PO UD 05/31/24 05/31/24 History Patient History Medical History AMS (altered mental status) Plasma cell neoplasm Occlusion of artery of lower extremity Ischemic leg Abdominal ascites History of COVID-19 03/2023, not hosp; still has low blood pressure now w/orthostatice hypotension PVCs (premature ventricular contractions) PAC (premature atrial contraction) Fall Rectal bleeding Rotator cuff arthropathy of right shoulder Perforation of tympanic membrane of left ear due to otitis media Degenerative disc disease GERD (gastroesophageal reflux disease) no current meds Monoclonal gammopathy work up underway March 2024 Acute on chronic renal insufficiency Hypoalbuminemia Orthostatic hypotension Sensorineural hearing loss (SNHL) of left ear with restricted hearing of right ear Seizure Grand mal (most recent 1978) Migraine History of palpitations BPH (benign prostatic hyperplasia) Bulging disc Osteoarthritis Glaucoma Restless leg syndrome Pulmonary embolism 1985 post-op (back surgery) Surgical History History of reverse total replacement of right shoulder joint right History of sinus surgery Endoscopic sinus surgery (08/09/18): [place]#5[place] [facility] [place] No issues noted per post-op anesthesia progress note. H/O eye surgery Detached retina repairs-bilateral H/O sinus surgery History of repair of rotator cuff R/L History of carpal tunnel release R/L History of discectomy Lumbar History of colonoscopy Dr. Richards with polypectomy History of tooth extraction History of cataract surgery R/L Family History Father Family hx of colon cancer Cancer Colorectal cancer Heart disease Grandfather (Maternal) Family hx of colon cancer Grandfather Colorectal cancer Social History Smoking Status: Former smoker Tobacco Type: Cigarettes Second Hand Exposure: Yes; Do You Dip or Chew Tobacco: No; Tobacco Cessation Education Requested by Patient: No Hx Alcohol Use: No Hx Substance Use: No Preferred Language: Dutch Communication Ability: Impaired Communication Ability Comment: pt is currently confused and disoriented Halal Meat Packer Required: No Beliefs That Will Affect Care: None marital status: Current Living Situation: Spouse Other Information That Helps Us Care for You: No Feels Safe at Home: Yes Safety Concerns: Feels Safe At This Time Diet: regular Assistive Devices: Prosthesis Review of Systems 2 Review of Systems: All systems reviewed & are unremarkable except as noted in HPI & below Physical Exam 2 Constitutional: well developed, + physical limitations (weak), + frail appearing, cooperative and + malnourished; no acute distress Eyes: EOM intact bilaterally ENMT: Mouth: + dry oral mucous membranes Respiratory: normal respiratory effort Auscultation: + diminished lung sounds Cardiovascular: Rate/Rhythm: regular rate and regular rhythm Extremities: + edema (1+ dependent; minimal distal) Gastrointestinal (Abdomen): Inspection/Auscultation: + abdomen distended, normal bowel sounds and + caput medusae present Percussion/Palpation: abdomen soft and + fluid wave (possible); abdomen nontender Musculoskeletal: Extremities: strength 5/5 throughout Skin: no rashes, warm and dry Neurologic: fluent speech, no tremor Psychiatric: Orientation: alert (needs redirection, reinforcement), oriented to person and cooperative Results & Data Vital Signs (Past 12 Hours) Vital Signs Temp Pulse Pulse Pulse Resp BP BP 06/01/24 15:44 36.4 C L 77 16 128/64 06/01/24 13:27 36.4 C L 73 18 99/53 L 06/01/24 13:11 77 06/01/24 13:08 36.5 C 66 06/01/24 13:00 77 79/49 L 06/01/24 12:30 77 94/50 L 06/01/24 12:00 82 100/44 L 06/01/24 11:30 64 80/50 L 06/01/24 11:00 66 77/46 L 06/01/24 10:30 72 84/57 L 06/01/24 10:00 74 98/58 L 06/01/24 09:33 65 113/57 L 06/01/24 09:28 36.4 C L 71 06/01/24 08:00 06/01/24 07:38 36.2 C L 77 16 06/01/24 06:48 89 BP Pulse Ox O2 Del Method O2 Flow Rate 06/01/24 15:44 96 Nasal Cannula 3 06/01/24 13:27 96 Nasal Cannula 3 06/01/24 13:11 06/01/24 13:08 106/57 L 06/01/24 13:00 06/01/24 12:30 06/01/24 12:00 06/01/24 11:30 06/01/24 11:00 06/01/24 10:30 06/01/24 10:00 06/01/24 09:33 06/01/24 09:28 06/01/24 08:00 Nasal Cannula 3 06/01/24 07:38 102/59 L 98 Nasal Cannula 3 06/01/24 06:48 Laboratory Results 06/01/24 06:26 06/01/24 06:26 Diagnostic Findings cxr > mild plm vasc congestion; no effusion or consolidation head CT > no acute IC process
[2024-06-02 04:12] LABS: Appearance Urine Turbid (Clear); Bacteria Urine Automated 4+ (None Seen); Bilirubin Urine Negative (Negative); Blood Urine 1+ (Negative); Cast Urine Automated >20 /lpf (0-2); Color Urine Yellow; Glucose Urine UA Negative (Negative); Ketones Urine Negative (Negative); Leukocyte Esterase Urine 2+ (Negative); Nitrite Urine Negative (Negative); Protein Urine 4+ (Negative); Urobilinogen Urine Negative (Negative); WBC Urine Automated >50 /hpf (0-5); pH Urine 7.5 (4.5-7.5)
--- NOTE | 2024-06-02 05:25 | Urology Consultation ---
Date of Consultation June 02, 2024 Assessment & Plan (1) Urinary retention: The patient has been admitted on the hospitalist service: Will defer management of patient's altered mental status and other medical problems to their discretion From urologic perspective we recommend the following: At the bedside and with the patient's permission I attempted to (under sterile conditions) placed a Sousa catheter. I did attempt to place a regular 16 [place] Sousa as well as a 16 [place] coud catheter. I was able to place a catheter most of the way into the bladder but however met some resistance with some apparent coiling of the Sousa catheter at the end of insertion. I was unable to obtain any urine with insertion of the catheter despite bladder scan results. I therefore elected not to inflate the Sousa catheter balloon and risk of urethral injury. As the patient has had multiple straight caths at home and by nursing staff and with this new issue of concern perhaps patient has a false passage I will defer further attempts at placing a Sousa catheter until patient can be evaluated by urology attending later this morning. At the conclusion of my visit the patient did not appear to be in any distress History of Present Illness Attending Physician: Pearl Matthew MD History of Present Illness This is a 74-year-old male who has been admitted to [facility] since 05/31/2024 secondary to altered mental status. The patient could not provide any historical information and therefore the HPI portion of this consultation was obtained from review of chart. The patient has been admitted as noted above secondary to altered mental status that was felt to be due to metabolic encephalopathy due to underlying chemotherapy. (He receives chemotherapy for treatment of multiple myeloma). The patient has a history of end-stage renal disease for which she has dialysis on Monday and Monday. It is noteworthy to mention however that the patient does undergo straight catheterizations at home daily. I was asked by nursing staff to see the patient and the hospitalist service as they BladderScan the patient and he was noted to have a full bladder and they were unable to straight catheter. The nurses note that they were previously straight cathing him without difficulty but earlier this evening they tried to straight cath the patient and several blood clots were noted and then they were unable to straight cath the patient further. They did said that the patient said that he did feel the urge to urinate. (At the time of my interview I did asked the patient if he had to urinate which he did not express this urge to me.) the nursing staff also added that the patient's family did not want him to have a permanent Sousa catheter in place. It is noteworthy to mention that the patient does take Coumadin for history of pulmonary emboli. I did attempt to question the patient on additional symptomatology but as noted above he did not provide any additional information and did not report any pain at the time of my exam. While is at the bedside nursing staff did BladderScan the patient. They told me prior to my arrival bladder scan showed that he had 1000 cc of urine. While I was at the bedside they did BladderScan the patient on 2 occasions which showed 250 cc, and 350 cc respectively. Patient's most recent labs and imaging were reviewed and on 05/31/2024 he did have a chest x-ray that showed no evidence of pneumonia and he also had a CT scan of the head that showed no acute intracranial abnormalities. CBC from 06/01/2024 showed white blood cell count was normal. His platelet count was 477,000. Hemoglobin and hematocrit were 10.3 and 30.6. Coagulation studies showed an INR of 1.9. Chemistry profile showed sodium and potassium are 133.4 and his BUN and creatinine were 77 and 4.3. His most recent urinalysis did show turbid urine with pyuria and greater than 50 white blood cells per high-power field and 4+ bacteria. The specimen showed 2+ leukocyte Estrace and was negative for nitrites. At the time of my exam patient did not appear to be in any distress. Allergies Allergy/AdvReac Type Severity Reaction Status Date / Time dorzolamide Allergy Severe eyes Verified 05/05/24 20:55 swollen azithromycin Allergy Intermediate Rash Verified 05/05/24 20:55 Home Medications Medication Instructions Recorded Confirmed Type finasteride 5 mg tablet 5 mg PO DAILY 03/13/24 05/31/24 History latanoprost 0.005 % eye drops 1 drp OPB DAILY 03/13/24 05/31/24 History aspirin 81 mg tablet,delayed 81 mg PO QAM 05/05/24 05/31/24 History release folic acid 1 mg tablet 1 mg PO QAM #30 tabs 05/13/24 05/31/24 Rx thiamine HCl (vitamin B1) 100 mg 100 mg PO QAM #30 tabs 05/13/24 05/31/24 Rx tablet midodrine 10 mg tablet 10 mg PO TID #270 tabs 05/24/24 05/31/24 Rx diphenoxylate-atropine 2.5 1 tab PO QID PRN Diarrhea 05/31/24 05/31/24 History mg-0.025 mg tablet (Lomotil) midodrine 10 mg tablet 15 mg PO UD 05/31/24 05/31/24 History torsemide 100 mg tablet 100 mg PO UD 05/31/24 05/31/24 History warfarin 5 mg tablet 5 mg PO UD 05/31/24 05/31/24 History Patient History Medical History AMS (altered mental status) Plasma cell neoplasm Occlusion of artery of lower extremity Ischemic leg Abdominal ascites History of COVID-19 03/2023, not hosp; still has low blood pressure now w/orthostatice hypotension PVCs (premature ventricular contractions) PAC (premature atrial contraction) Fall Rectal bleeding Rotator cuff arthropathy of right shoulder Perforation of tympanic membrane of left ear due to otitis media Degenerative disc disease GERD (gastroesophageal reflux disease) no current meds Monoclonal gammopathy work up underway March 2024 Acute on chronic renal insufficiency Hypoalbuminemia Orthostatic hypotension Sensorineural hearing loss (SNHL) of left ear with restricted hearing of right ear Seizure Grand mal (most recent 1978) Migraine History of palpitations BPH (benign prostatic hyperplasia) Bulging disc Osteoarthritis Glaucoma Restless leg syndrome Pulmonary embolism 1985 post-op (back surgery) Surgical History History of reverse total replacement of right shoulder joint right History of sinus surgery Endoscopic sinus surgery (08/09/18): LMA#5, atraumatic at [facility] [place]. No issues noted per post-op anesthesia progress note. H/O eye surgery Detached retina repairs-bilateral H/O sinus surgery History of repair of rotator cuff R/L History of carpal tunnel release R/L History of discectomy Lumbar History of colonoscopy Dr. Richards with polypectomy History of tooth extraction History of cataract surgery R/L Family History Father Family hx of colon cancer Cancer Colorectal cancer Heart disease Grandfather (Maternal) Family hx of colon cancer Grandfather Colorectal cancer Social History Smoking Status: Former smoker Tobacco Type: Cigarettes Second Hand Exposure: Yes; Do You Dip or Chew Tobacco: No; Tobacco Cessation Education Requested by Patient: No Hx Alcohol Use: No Hx Substance Use: No Preferred Language: American Communication Ability: Impaired Communication Ability Comment: pt is currently confused and disoriented Geospatial Analyst Required: No Beliefs That Will Affect Care: None marital status: Current Living Situation: Spouse Other Information That Helps Us Care for You: No Feels Safe at Home: Yes Safety Concerns: Feels Safe At This Time Diet: regular Assistive Devices: Prosthesis Review of Systems Review of Systems: Unobtainable due to cognitive status Physical Exam Constitutional: WD/WN, vitals as above Eyes: no conjunctival abnormality Neck: trachea midline Respiratory: normal respiratory effort; no respiratory distress and no labored breathing Gastrointestinal (Abdomen): Abdomen is soft and nondistended. There is no pain noted with palpation, specifically no suprapubic discomfort Genitourinary: No CVA tenderness with percussion bilaterally Results & Data Vital Signs (Past 12 Hours) Vital Signs Temp Pulse Resp BP BP Pulse Ox O2 Del Method 06/02/24 03:22 36.6 C 77 16 124/67 98 Nasal Cannula 06/01/24 22:04 36.5 C 72 16 122/51 L 97 Room Air 06/01/24 22:00 Nasal Cannula 06/01/24 19:39 36.3 C L 72 16 118/66 98 Nasal Cannula O2 Flow Rate 06/02/24 03:22 2 06/01/24 22:04 06/01/24 22:00 3 06/01/24 19:39 3 PG Care Time/CCT Total # of Minutes Spent Total Time Spent with Patient: Total time spent is greater than 50% in coordination of care (as documented) at patient's floor/unit and/or counseling patient: Coding Level of Care Code 83481 INT INP/OBS CARE 2/55MIN Diagnoses Urinary retention R33.9
[2024-06-02 07:24] LABS: Hematocrit (blood only) 32.1 % (42.0-52.0); Hemoglobin 10.8 g/dl (14.0-18.0); Mean Corpuscular Hgb Conc 33.6 g/dL (32.0-36.0); Nucleated RBC # (auto) 0.07 K/uL (0.00-0.12); Nucleated RBC % (auto) 1.1 %; Platelet Count 535 K/uL (130-400); RDW Coefficient of Variation 20.8 % (11.5-14.5); RDW Standard Deviation 71.3 fL (36.4-46.3); Red Blood Count 3.38 M/uL (4.70-6.10); White Blood Count 6.47 K/ul (4.8-10.8)
[2024-06-02 07:58] LABS: BUN Creatinine Ratio 14.7 (10-20); Creatinine Clr Calc Pharmacy 25.1 ml/min; Magnesium 1.6 mg/dl (1.7-2.4); Phosphorus 4.2 mg/dl (2.5-4.9); Potassium 3.6 mmol/L (3.5-5.1)
[2024-06-02] MEDS: cefTRIAXone SODIUM 2,000 MG/50 ML BAG IV SCH (08:18)
[2024-06-02 09:21] LABS: Adenovirus PCR Not Detected (NotDetected); Bordetella parapertussis PCR Not Detected (NotDetected); Bordetella pertussis PCR Not Detected (NotDetected); Chlamydia pneumoniae PCR Not Detected (NotDetected); Coronavirus 229E PCR Not Detected (NotDetected); Coronavirus CoV-2 (COVID19)PCR Not Detected (NotDetected); Coronavirus HKU1 PCR Not Detected (NotDetected); Coronavirus NL63 PCR Not Detected (NotDetected); Coronavirus OC43PCR Not Detected (NotDetected); Human Metapneumovirus PCR Not Detected (NotDetected); Influenza A PCR Not Detected (NotDetected); Influenza B PCR Not Detected (NotDetected); Mycoplasma pneumoniae PCR Not Detected (NotDetected); Parainfluenza Virus 1 PCR Not Detected (NotDetected); Parainfluenza Virus 2 PCR Not Detected (NotDetected); Parainfluenza Virus 3 PCR Not Detected (NotDetected); Parainfluenza Virus 4 PCR Not Detected (NotDetected); Respiratory Syncytial VirusPCR Not Detected (NotDetected); Rhinovirus/Enterovirus PCR Not Detected (NotDetected)
--- NOTE | 2024-06-02 10:33 | Urology Progress Note ---
Date of Service June 02, 2024 Assessment & Plan (1) Urinary retention: Plan Question of urinary retention I did a detailed review of his chart including reviewing his imaging personally He has relatively significant ascites which is almost certainly what is being captured on bladder scan Given his lack of difficulty with catheter placement in the past my strong suspicion is that he has an empty bladder rather than difficulty with catheter placement I would avoid catheterizations unless he develops symptoms He is already on dialysis so there is no renal preservation at issue If symptomatic, straight cath Has had Sousa catheters placed without incident in the past during hospitalizations as evidenced by the presence on imaging studies No bladder scans as the ascites will make these inherently inaccurate Admission and Anticipated Discharge Date Admission Date: May 31, 2024 Subjective Reviewed the patient's situation with Quin[facility] Grey overnight Question of full bladder on bladder scan and inability to place Sousa catheter Interestingly, he has been straight cath during this hospitalization without issue previously He was dialyzed yesterday The patient denies any symptoms of a full bladder No urge to urinate No discomfort in the lower pelvis No incontinence Qualifier to this is that he is quite a poor historian at present Physical Exam Physical Exam: Abdomen with a mild fluid wave Not distended No tenderness in the suprapubic area No palpably distended bladder Results & Data Vital Signs (Past 12 Hours) Vital Signs Temp Pulse Pulse Resp BP Pulse Ox O2 Del Method 06/02/24 07:46 36.9 C 76 18 120/54 L 96 Nasal Cannula 06/02/24 07:01 89 06/02/24 03:22 36.6 C 77 16 124/67 98 Nasal Cannula O2 Flow Rate 06/02/24 07:46 3 06/02/24 07:01 06/02/24 03:22 2 PG Care Time/CCT Total # of Minutes Spent Total Time Spent with Patient: Total time spent is greater than 50% in coordination of care (as documented) at patient's floor/unit and/or counseling patient: Coding Level of Care Code 99709 SUB INP/OBS CARE 2/35MIN Diagnoses Urinary retention R33.9
--- NOTE | 2024-06-02 13:10 | Hospitalist Progress Note ---
Date of Service June 02, 2024 Assessment & Plan (1) AMS (altered mental status): (2) Syncope: (3) Multiple myeloma without remission: Plan: Patient is 74 year old male with PMH ESRD on HD, multiple myeloma, cirrhosis, Buerger disease, PVD, Burger's disease, BPH, AL light chain amyloidosis, history left above knee amputation, history of pulmonary embolism presented to ER with c/o reported syncope and hypotension at dialysis 05/31. #AMS #Possible metabolic encephalopathy #Syncopal episode #History Hypotension #Multiple myeloma #Generalized weakness #Ambulatory dysfunction Recent hospitalization for AMS after chemo which reports mental status returned to baseline. Repeat chemo 8 days ago [employer] and since with AMS, generalized weakness, bedbound and poor oral intake. reports mental status improving over past [address] head: No acute intracranial abnormality CXR: No acute infiltrate NH3 level wnl, MRSA neg Blood cx negative Urine cx negative Suspect AMS/encephalopathy secondary to chemo Monitor vitals Continue home midodrine Hold home torsemide at this time and monitor PT/OT eval. Previously deferred rehab but states would be open to it now if needed #Elevated troponin Trop downtrending 98-->88--> 82 EKG: Sinus rhythm, LAFB No chest pain per pt #ESRD On HD on MWF schedule Nephrology consult for assistance with HD #Cirrhosis Noted on prior abdominal imaging Ammonia level WNL Monitor #Buerger Disease #History PVD #History prior PE Continue aspirin, warfarin INR: 1.9 Monitor INR #BPH History requiring Sousa cath in past. No current Sousa cath. Requires self cath by (who prior nurse) typically once daily DVT Prophylaxis: On warfarin, monitor INR Full Code as per discussion with pt's . She states will have ongoing conversation and consideration in the future Please note the above document was generated using voice recognition software. It may contain grammatical, syntax or spelling errors. Any formal questions or concerns about the content, text or information contained within the body of this dictation should be directly addressed to the provider for clarification Admission and Anticipated Discharge Date Admission Date: May 31, 2024 Subjective Patient seen at bedside He is awake; opens his eyes to voice. Does not answer any questions. Moving all extremities Vital signs are stable Review of Systems Review of Systems: Unobtainable due to cognitive status Physical Exam Physical Exam: Constitutional:Awake, opens his eyes spontaneously; does not appear to be in any distress. Respiratory: Bilateral vesicular breath sound. On 3 L NC O2. Cardiovascular: RRR, no murmur, no edema Vessels: no JVD or carotid bruit Chest: normal inspection of chest Abdomen: normal bowel sounds, soft, nontender, no hepatosplenomegaly Musculoskeletal: Lt knee BKA. Neurologic: PERRL, EOMI, grossly moves all extremities. Results & Data Results & Data Vital Signs (Past 12 Hours) Vital Signs Temp Pulse Pulse Resp BP Pulse Ox O2 Del Method 06/02/24 11:16 36.7 C 68 16 102/62 97 Room Air 06/02/24 07:46 36.9 C 76 18 120/54 L 96 Nasal Cannula 06/02/24 07:45 Nasal Cannula 06/02/24 07:01 89 06/02/24 03:22 36.6 C 77 16 124/67 98 Nasal Cannula O2 Flow Rate 06/02/24 11:16 06/02/24 07:46 3 06/02/24 07:45 3 06/02/24 07:01 06/02/24 03:22 2 (2) Syncope Syncope type: unspecified Qualified Code(s): R55 - Syncope and collapse
[2024-06-02] MEDS: MIDODRINE HCL 10 MG TAB PO SCH (16:27)
[2024-06-02 20:45] LABS: Adenovirus F 40/41 PCR Not Detected (NotDetected); Astrovirus PCR Not Detected (NotDetected); Campylobacter PCR Not Detected (NotDetected); Cryptosporidium PCR Not Detected (NotDetected); Cyclospora cayetanensis PCR Not Detected (NotDetected); Entamoeba histolytica PCR Not Detected (NotDetected); Enteroaggregative E.coli(EAEC) Not Detected (NotDetected); Enteropathogenic E.coli (EPEC) Not Detected (NotDetected); Enterotoxigenic E.coli (ETEC) Not Detected (NotDetected); Giardia lamblia PCR Not Detected (NotDetected); Norovirus GI/GII PCR Not Detected (NotDetected); Plesiomonas shigelloides PCR Not Detected (NotDetected); Rotavirus A PCR Not Detected (NotDetected); Salmonella PCR Not Detected (NotDetected); Sapovirus PCR Not Detected (NotDetected); Shiga-like Toxin E.coli (STEC) Not Detected (NotDetected); Shigella/Enteroinvasive E.coli Not Detected (NotDetected); Vibrio cholerae PCR Not Detected (NotDetected); Vibrio species PCR Not Detected (NotDetected); Yersinia enterocolitica PCR Not Detected (NotDetected)
--- NOTE | 2024-06-02 22:16 | Nephrology Progress Note ---
Date of Service June 02, 2024 Assessment & Plan (1) ESRD (end stage renal disease) on dialysis: Plan: new to dialysis as of March 2024; after/ as he was starting HD, he was diagnosed w/ AL amyloidosis AND IgG kappa paraproteinemia AND hypercoag state chemistries ok > ran on 3K bath -HD 06/01 > tolerated 1L UF; midodrine dependent >reeval for HD Saturday 06/03 >> orders in >>>he'll need to start coming to HD on a lift pad/ wheelchair after d/c unless dramatic change in functional status >> pls alert case mgt so we can plan; may need jose antonio lift at home (2) Immunocompromised: Plan: b/c he's on chemotherapy as well. He saw heme 05/21 > continued on regimen started 1/2 of weekly velcade, weekly cyclophosphamide (held after 05/21 heme visit), darzalex faspro weekly, weekly decadron. 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 if this is due to chemo or ? stroke or atypical infection or chronic hypotension; continue supportive care Admission and Anticipated Discharge Date Admission Date: May 31, 2024 Subjective delayed entry for pt eval 1830; pt unable to give ROS; RN reports confusion most of day; pt unable to feed himself; Review of Systems 2 Review of Systems: Unobtainable due to reduced consciousness Physical Exam 2 Constitutional: well developed, + altered mental status, + physical limitations (weak), + frail appearing and + malnourished; no acute distress Eyes: EOM intact bilaterally ENMT: Mouth: + dry oral mucous membranes Respiratory: normal respiratory effort Auscultation: + diminished lung sounds Cardiovascular: Rate/Rhythm: regular rate and regular rhythm Extremities: + edema (1+ dependent; minimal distal) Gastrointestinal (Abdomen): Inspection/Auscultation: + abdomen distended, normal bowel sounds and + caput medusae present Percussion/Palpation: abdomen soft and + fluid wave (possible); abdomen nontender Musculoskeletal: Extremities: strength 5/5 throughout (mendez, Jag AKA) Skin: no rashes, warm and dry Psychiatric: Orientation: alert (needs redirection, reinforcement), oriented to person and cooperative Results & Data Vital Signs (Past 12 Hours) Vital Signs Temp Pulse Pulse Resp BP Pulse Ox O2 Del Method 06/02/24 19:27 36.7 C 75 18 118/57 L 98 Room Air 06/02/24 16:22 36.8 C 78 18 106/62 95 Room Air 06/02/24 14:13 73 06/02/24 11:16 36.7 C 68 16 102/62 97 Room Air Laboratory Results 06/02/24 06:22 06/02/24 06:22
[2024-06-03 06:29] LABS: INR 2.2 (0.9-1.1); Prothrombin Time 22.6 Seconds (9.0-12.0)
[2024-06-03 06:32] LABS: Calcium 8.1 mg/dl (8.6-10.3); Potassium 3.9 mmol/L (3.5-5.1)
[2024-06-03 06:38] LABS: Creatinine Clr Calc Pharmacy 17.6 ml/min
--- NOTE | 2024-06-03 09:12 | Hospitalist Progress Note ---
Date of Service June 03, 2024 Assessment & Plan (1) AMS (altered mental status): (2) Syncope: (3) Multiple myeloma without remission: Plan: Patient is 74 year old male with PMH ESRD on HD, multiple myeloma, cirrhosis, Buerger disease, PVD, Burger's disease, BPH, AL light chain amyloidosis, history left above knee amputation, history of pulmonary embolism presented to ER with c/o reported syncope and hypotension at dialysis 05/31. #AMS #Possible metabolic encephalopathy #Syncopal episode #History Hypotension #Multiple myeloma #Generalized weakness #Ambulatory dysfunction Acute UTI Recent hospitalization for AMS after chemo which reports mental status returned to baseline. 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 reports mental status improving over past [address] head: No acute intracranial abnormality CXR: No acute infiltrate NH3 level wnl, MRSA neg Blood cx negative Urine cx growing K. pnuemonia Suspect AMS/encephalopathy secondary to chemo/UTI Monitor vitals Continue home midodrine Hold home torsemide at this time and monitor Continue on current antibiotics; follow up on sensitivities Patient's wants him to go to rehab for short-term; appreciate case management assistance #Elevated troponin Trop downtrending 98-->88--> 82 EKG: Sinus rhythm, LAFB No chest pain per pt #ESRD On HD on MWF schedule Nephrology consult for assistance with HD #Cirrhosis Noted on prior abdominal imaging Ammonia level WNL Monitor #Buerger Disease #History PVD #History prior PE Continue aspirin, warfarin INR: 1.9 Monitor INR #BPH History requiring Sousa cath in past. No current Sousa cath. Requires self cath by (who prior nurse) typically once daily DVT Prophylaxis: On warfarin, monitor INR Full Code as per discussion with pt's . She states will have ongoing conversation and consideration in the future Updated at bedside. Answer questions/queries Time spent evaluating patient, direct bedside care, chart review, placing orders, interpretation of diagnostic studies, discussion with consultants, patient, and family members, as well as other required patient management activities is 50 minutes Please note the above document was generated using voice recognition software. It may contain grammatical, syntax or spelling errors. Any formal questions or concerns about the content, text or information contained within the body of this dictation should be directly addressed to the provider for clarification Admission and Anticipated Discharge Date Admission Date: May 31, 2024 Subjective Patient seen and examined at bedside. He is oriented to self; sleepy: Awake to voice intermittently. Does not appear to be any distress. Vital signs are stable Review of Systems Review of Systems: Unobtainable due to cognitive status Physical Exam Physical Exam: Constitutional:Awake, opens his eyes spontaneously; does not appear to be in any distress. Respiratory: Bilateral vesicular breath sound. Cardiovascular: RRR, no murmur, no edema Vessels: no JVD or carotid bruit Chest: normal inspection of chest Abdomen: normal bowel sounds, soft, nontender, no hepatosplenomegaly Musculoskeletal: Lt knee BKA. Neurologic: PERRL, EOMI, grossly moves all extremities. Results & Data Results & Data Vital Signs (Past 12 Hours) Vital Signs Temp Pulse Pulse Resp BP Pulse Ox O2 Del Method 06/03/24 08:18 36.4 C L 86 16 117/63 95 Room Air 06/03/24 07:21 92 H 06/03/24 02:44 36.6 C 83 18 126/68 94 Room Air 06/03/24 00:00 75 06/02/24 22:30 36.3 C L 89 18 110/64 96 Room Air (2) Syncope Syncope type: unspecified Qualified Code(s): R55 - Syncope and collapse
--- NOTE | 2024-06-03 09:41 | Dialysis Progress Note ---
Date of Service June 03, 2024 Assessment & Plan Admission and Anticipated Discharge Date Admission Date: May 31, 2024 Subjective Assessment & Plan (1) ESRD (end stage renal disease) on dialysis: Plan: new to dialysis as of March 2024; after/ as he was starting HD, he was diagnosed w/ AL amyloidosis AND IgG kappa paraproteinemia AND hypercoag state HD 06/01 > tolerated 1L UF; midodrine dependent Dialysis today---3hr 15 mins. and take 1500 ml off. CVC is fine he'll need to start coming to HD on a lift pad/ wheelchair after d/c unless dramatic change in functional status. pls alert case mgt so we can plan he will need jose antonio lift at home (2) Immunocompromised: Plan: b/c he's on chemotherapy as well. He saw heme 05/21 > continued on regimen started 1/2 of weekly velcade, weekly cyclophosphamide (held after 05/21 heme visit), darzalex faspro weekly, weekly decadron. CYC for now on hold (3) AL amyloidosis: Plan: his paraproteinemia/amyloidosis involves the kidneys w/ possible involvement of heart, liver, and autonomic nervous system; oncology does not r/o its contributing to his hypotension and syncope. 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 very weak and barely interactive. Chronically very ill. BP is fine and CVC fine Physical Exam Physical Exam: Constitutional:Awake, very weak and sick. Does not appear to be in any distress. Respiratory: Bilateral vesicular breath sound. On RA now Cardiovascular: RRR, no murmur, no edema Vessels: no JVD or carotid bruit Chest: normal inspection of chest Abdomen: normal bowel sounds, soft, nontender, no hepatosplenomegaly Musculoskeletal: Lt knee BKA. Neurologic: PERRL, EOMI, grossly moves all extremities. Results & Data Vital Signs (Past 12 Hours) Vital Signs Temp Pulse Pulse Resp BP Pulse Ox O2 Del Method 06/03/24 08:18 36.4 C L 86 16 117/63 95 Room Air 06/03/24 07:21 92 H 06/03/24 02:44 36.6 C 83 18 126/68 94 Room Air 06/03/24 00:00 75 02/02/25 22:30 36.3 C L 89 18 110/64 96 Room Air
[2024-06-03 10:28] LABS: Hematocrit (blood only) 31.2 % (42.0-52.0); Hemoglobin 10.4 g/dl (14.0-18.0); Immature Granulocytes # (auto) 0.03 K/uL (0.01-0.20); Immature Granulocytes % (auto) 0.4 %; Lymphocytes # (auto) 1.01 K/uL (1.20-3.40); Lymphocytes % (auto) 13.3 %; Mean Corpuscular Hemoglobin 31.5 pg (25.0-34.0); Mean Corpuscular Hgb Conc 33.3 g/dL (32.0-36.0); Mean Corpuscular Volume 94.5 fL (80.0-100.0); Mean Platelet Volume 11.8 fL (9.4-12.4); Monocytes # (auto) 1.55 K/uL (0.11-0.59); Monocytes % (auto) 20.4 %; Neutrophils # (auto) 4.99 K/uL (1.40-6.50); Neutrophils % (auto) 65.9 %; Nucleated RBC # (auto) 0.04 K/uL (0.00-0.12); Nucleated RBC % (auto) 0.5 %; Platelet Count 609 K/uL (130-400); RDW Coefficient of Variation 20.6 % (11.5-14.5); RDW Standard Deviation 69.7 fL (36.4-46.3); White Blood Count 7.58 K/ul (4.8-10.8)
[2024-06-03] MEDS: HEPARIN SOD (PORCINE) 1000 UNIT/ML IV SCH (10:34)
[2024-06-03] MEDS: HEPARIN SOD (PORCINE) 1000 UNIT/ML IV ONE (10:34)
[2024-06-03 10:58] LABS: Anisocytosis Present; Giant Platelets 1+; Polychromasia 1+; Target Cells 1+
[2024-06-04 08:34] LABS: Basophils # (auto) 0.01 K/uL (0.00-0.20); Basophils % (auto) 0.1 %; Eosinophils # (auto) 0.01 K/uL (0.00-0.50); Eosinophils % (auto) 0.1 %; Hemoglobin 10.4 g/dl (14.0-18.0); Immature Granulocytes # (auto) 0.03 K/uL (0.01-0.20); Immature Granulocytes % (auto) 0.4 %; Lymphocytes # (auto) 0.87 K/uL (1.20-3.40); Lymphocytes % (auto) 11.9 %; Mean Corpuscular Hemoglobin 31.8 pg (25.0-34.0); Mean Corpuscular Hgb Conc 33.5 g/dL (32.0-36.0); Mean Corpuscular Volume 94.8 fL (80.0-100.0); Mean Platelet Volume 11.3 fL (9.4-12.4); Monocytes # (auto) 1.63 K/uL (0.11-0.59); Monocytes % (auto) 22.3 %; Neutrophils # (auto) 4.77 K/uL (1.40-6.50); Neutrophils % (auto) 65.2 %; Nucleated RBC # (auto) 0.02 K/uL (0.00-0.12); Nucleated RBC % (auto) 0.3 %; Platelet Count 588 K/uL (130-400); RDW Coefficient of Variation 20.4 % (11.5-14.5); RDW Standard Deviation 69.4 fL (36.4-46.3); Red Blood Count 3.27 M/uL (4.70-6.10); White Blood Count 7.32 K/ul (4.8-10.8)
[2024-06-04 08:57] LABS: INR 2.2 (0.9-1.1); Prothrombin Time 22.4 Seconds (9.0-12.0)
[2024-06-04 09:01] LABS: BUN Creatinine Ratio 12.1 (10-20); Calcium 8.1 mg/dl (8.6-10.3); Creatinine Clr Calc Pharmacy 20.4 ml/min; Potassium 4.2 mmol/L (3.5-5.1)
[2024-06-04 09:02] LABS: Anisocytosis Present; Target Cells 1+
--- NOTE | 2024-06-04 14:41 | Hospitalist Progress Note ---
Date of Service June 04, 2024 Assessment & Plan (1) AMS (altered mental status): (2) Syncope: (3) Multiple myeloma without remission: Plan: Patient is 74 year old male with PMH ESRD on HD, multiple myeloma, cirrhosis, Buerger disease, PVD, Burger's disease, BPH, AL light chain amyloidosis, history left above knee amputation, history of pulmonary embolism presented to ER with c/o reported syncope and hypotension at dialysis 05/31. #AMS #Possible metabolic encephalopathy #Syncopal episode #History Hypotension #Multiple myeloma #Generalized weakness #Ambulatory dysfunction Acute UTI Recent hospitalization for AMS after chemo which reports mental status returned to baseline. 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 reports mental status improving over past [address] head: No acute intracranial abnormality CXR: No acute infiltrate NH3 level wnl, MRSA neg Blood cx negative Urine cx growing K. pnuemonia UTI possibly contributed to change in mental status; continue on ceftriaxone for now; plan to treat for 5 days Patient's wants him to go to rehab for short-term; appreciate case management assistance #Elevated troponin Trop downtrending 98-->88--> 82 EKG: Sinus rhythm, LAFB No chest pain per pt #ESRD On HD on MWF schedule Nephrology consult for assistance with HD #Cirrhosis Noted on prior abdominal imaging Ammonia level WNL Monitor #Buerger Disease #History PVD #History prior PE Continue aspirin, warfarin Monitor INR #BPH History requiring Sousa cath in past. No current Sousa cath. Requires self cath by (who prior nurse) typically once daily DVT Prophylaxis: On warfarin, monitor INR Full Code as per discussion with pt's . She states will have ongoing conversation and consideration in the future Updated at bedside on 06/03/2024. Answer questions/queries Dispositiondischarge when placement is available Please note the above document was generated using voice recognition software. It may contain grammatical, syntax or spelling errors. Any formal questions or concerns about the content, text or information contained within the body of this dictation should be directly addressed to the provider for clarification Admission and Anticipated Discharge Date Admission Date: May 31, 2024 Subjective Patient seen and examined at bedside Opens his eyes intermittently; did not response to questions appropriately No significant events overnight Review of Systems Review of Systems: All systems reviewed & are unremarkable except as noted in Subjective Physical Exam Physical Exam: Constitutional:Awake, opens his eyes spontaneously; does not appear to be in any distress. Respiratory: Bilateral vesicular breath sound. Cardiovascular: RRR, no murmur, no edema Vessels: no JVD or carotid bruit Chest: normal inspection of chest Abdomen: normal bowel sounds, soft, nontender, no hepatosplenomegaly Musculoskeletal: Lt knee BKA. Neurologic: PERRL, EOMI, grossly moves all extremities. Results & Data Results & Data Vital Signs (Past 12 Hours) Vital Signs Temp Pulse Pulse Resp BP BP Pulse Ox 06/04/24 13:54 77 06/04/24 11:24 36.4 C L 82 16 101/70 96 06/04/24 08:00 06/04/24 07:49 36.7 C 74 16 129/69 96 06/04/24 07:00 77 06/04/24 03:35 36.6 C 87 18 115/63 94 O2 Del Method 06/04/24 13:54 06/04/24 11:24 Room Air 06/04/24 08:00 Room Air 06/04/24 07:49 Room Air 06/04/24 07:00 06/04/24 03:35 Room Air (2) Syncope Syncope type: unspecified Qualified Code(s): R55 - Syncope and collapse
[2024-06-04] MEDS: POLYETHYLENE (MIRALAX) 17 GM PACK PO PRN (15:30)
[2024-06-05 08:11] LABS: Basophils # (auto) 0.01 K/uL (0.00-0.20); Basophils % (auto) 0.1 %; Hematocrit (blood only) 32.2 % (42.0-52.0); Hemoglobin 10.5 g/dl (14.0-18.0); Immature Granulocytes # (auto) 0.03 K/uL (0.01-0.20); Immature Granulocytes % (auto) 0.4 %; Lymphocytes # (auto) 0.97 K/uL (1.20-3.40); Lymphocytes % (auto) 13.1 %; Mean Corpuscular Hemoglobin 30.9 pg (25.0-34.0); Mean Corpuscular Hgb Conc 32.6 g/dL (32.0-36.0); Mean Corpuscular Volume 94.7 fL (80.0-100.0); Monocytes # (auto) 1.35 K/uL (0.11-0.59); Monocytes % (auto) 18.2 %; Neutrophils # (auto) 5.05 K/uL (1.40-6.50); Neutrophils % (auto) 68.2 %; Platelet Count 607 K/uL (130-400); RDW Coefficient of Variation 20.2 % (11.5-14.5); RDW Standard Deviation 68.2 fL (36.4-46.3); White Blood Count 7.41 K/ul (4.8-10.8)
[2024-06-05 08:24] LABS: BUN Creatinine Ratio 12.5 (10-20); Calcium 8.2 mg/dl (8.6-10.3); Creatinine Clr Calc Pharmacy 15.9 ml/min
[2024-06-05 08:37] LABS: Anisocytosis Present; Polychromasia 2+; Target Cells 1+
[2024-06-05 08:38] LABS: Howell-Jolly Bodies Occasional
[2024-06-05 08:42] LABS: INR 2.6 (0.9-1.1); Prothrombin Time 25.7 Seconds (9.0-12.0)
[2024-06-05] MEDS: EPOETIN ALFA 20,000 UNITS/ML VIAL IV ONE (10:38)
--- NOTE | 2024-06-05 10:57 | Dialysis Progress Note ---
Date of Service June 05, 2024 Assessment & Plan Admission and Anticipated Discharge Date Admission Date: May 31, 2024 Subjective Subjective Assessment & Plan (1) ESRD (end stage renal disease) on dialysis: Plan: new to dialysis as of March 2024. after/ as he was starting HD, he was diagnosed w/ AL amyloidosis AND IgG kappa paraproteinemia AND hypercoag state HD 06/01 > tolerated 1L UF; midodrine dependent Dialysis today---3hr 15 mins. and take 1500 ml off. CVC is fine he'll need to start coming to HD on a lift pad/ wheelchair after d/c unless dramatic change in functional status. pls alert case mgt so we can plan he will need jose antonio lift at home (2) Immunocompromised: Plan: b/c he's on chemotherapy as well. He saw heme 05/21 > continued on regimen started 1/2 of weekly velcade, weekly cyclophosphamide (held after 05/21 heme visit), darzalex faspro weekly, weekly decadron. CYC for now on hold (3) AL amyloidosis: Plan: his paraproteinemia/amyloidosis involves the kidneys w/ possible involvement of heart, liver, and autonomic nervous system; oncology does not r/o its contributing to his hypotension and syncope. 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 very weak and barely interactive. Chronically very ill. BP is already low and UF target lowered. fine and CVC fine Physical Exam Physical Exam: Constitutional:Awake, very weak and sick. Does not appear to be in any distress. Respiratory: Bilateral vesicular breath sound. On RA now Cardiovascular: RRR, no murmur, no edema Vessels: no JVD or carotid bruit Chest: normal inspection of chest Abdomen: normal bowel sounds, soft, nontender, no hepatosplenomegaly Musculoskeletal: Lt knee BKA. Neurologic: PERRL, EOMI, grossly moves all extremities. Results & Data Vital Signs (Past 12 Hours) Vital Signs Temp Pulse Pulse Pulse Resp BP BP 06/05/24 10:00 69 101/63 06/05/24 09:36 65 107/63 06/05/24 09:30 36.5 C 69 06/05/24 09:23 06/05/24 07:27 74 06/05/24 07:23 36.6 C 81 20 145/68 H 06/05/24 03:17 36.7 C 77 18 130/76 06/04/24 23:44 36.7 C 73 16 124/62 Pulse Ox O2 Del Method 06/05/24 10:00 06/05/24 09:36 06/05/24 09:30 06/05/24 09:23 Room Air 06/05/24 07:27 06/05/24 07:23 93 Room Air 06/05/24 03:17 96 Room Air 06/04/24 23:44 96 Room Air
--- NOTE | 2024-06-05 16:37 | Hospitalist Progress Note ---
Date of Service June 05, 2024 Assessment & Plan (1) AMS (altered mental status): (2) Syncope: (3) Multiple myeloma without remission: Plan: Patient is 74 yr male with PMH ESRD on HD, multiple myeloma, cirrhosis, Buerger disease, PVD, Burger's disease, BPH, AL light chain amyloidosis, history left above knee amputation, history of pulmonary embolism presented to ER with c/o reported syncope and hypotension at dialysis 05/31. Altered mental status Possible metabolic encephalopathy due to UTI, Chemo Syncopal episode H/O Hypotension Multiple myeloma Generalized weakness Ambulatory dysfunction Acute UTI --Recent hospitalization for AMS after chemo which reports mental status returned to baseline. 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 reports mental status improving over past 2 days. --CT head: No acute intracranial abnormality --CXR: No acute infiltrate --NH3 level wnl, MRSA neg --Blood cx negative to date --Urine cx growing K. pnuemonia -- Continue IV Rocephin -- Reorient frequently to minimize delirium --Patient's family prefers to go to rehab for short-term Case management to help with discharge planning Elevated troponin Trop downtrending 98-->88--> 82 EKG: Sinus rhythm, LAFB Denies chest pain ESRD On HD on MWF schedule Nephrology consult for assistance with HD Continue dialysis as per nephrology Cirrhosis Noted on prior abdominal imaging Ammonia level WNL Monitor Buerger Disease History PVD History prior PE Continue aspirin, warfarin Monitor INR 2.6 today BPH History requiring Sousa cath in past. No current Sousa cath. Requires self cath by (who prior nurse) typically once daily DVT Px warfarin CODE STATUS Full Code Admission and Anticipated Discharge Date Admission Date: May 31, 2024 Subjective Patient is seen and examined at bedside Was having hemodialysis during my encounter today Poor historian No distress on exam Denies any chest pain, dyspnea Review of Systems Review of Systems: All systems reviewed & are unremarkable except as noted in Subjective Physical Exam Physical Exam: Physical Exam: Vitals signs as noted above General Appearance:Moderately built and nourished, no apparent distress Head: normocephalic, Atraumatic Eyes: normal inspection, EOMI Neck: supple, Trachea midline Respiratory/Chest: Normal breath sounds, CTA, No accessory muscle use Cardiovascular: S1, S2, No murmur Abdomen/GI:Soft, Non tender, Bowel sounds present Extremities/Musculoskeletal:normal inspection, no edema, Left AKA Neurologic/Psych:AAOX1, grossly no focal neurological deficits Skin: normal color, warm Results & Data Results & Data Vital Signs (Past 12 Hours) Vital Signs Temp Pulse Pulse Pulse Resp BP BP 06/05/24 15:28 36.5 C 82 16 110/68 06/05/24 13:20 36.4 C L 72 06/05/24 13:00 85 82/48 L 06/05/24 12:30 62 92/45 L 06/05/24 12:00 61 86/48 L 06/05/24 11:40 77 87/47 L 06/05/24 11:30 70 77/50 L 06/05/24 11:00 67 97/55 L 06/05/24 10:30 69 83/56 L 06/05/24 10:00 69 101/63 06/05/24 09:36 65 107/63 06/05/24 09:30 36.5 C 69 06/05/24 09:23 06/05/24 07:27 74 06/05/24 07:23 36.6 C 81 20 145/68 H BP Pulse Ox O2 Del Method 06/05/24 15:28 93 Room Air 06/05/24 13:20 110/51 L 06/05/24 13:00 06/05/24 12:30 06/05/24 12:00 06/05/24 11:40 06/05/24 11:30 06/05/24 11:00 06/05/24 10:30 06/05/24 10:00 06/05/24 09:36 06/05/24 09:30 06/05/24 09:23 Room Air 06/05/24 07:27 06/05/24 07:23 93 Room Air Laboratory Results Short CBC 06/05/24 Range/Units 07:50 WBC 7.41 (4.8-10.8) K/ul Hgb 10.5 L (14.0-18.0) g/dl Hct 32.2 L (42.0-52.0) % Plt Count 607 H (130-400) K/uL BMP 06/05/24 07:50 Sodium 138 Potassium 4.0 Chloride 103 Carbon Dioxide 29 BUN 52 H Creatinine 4.15 H D Glucose 91 Calcium 8.2 L (2) Syncope Syncope type: unspecified Qualified Code(s): R55 - Syncope and collapse
[2024-06-06 07:30] LABS: BUN Creatinine Ratio 10.3 (10-20); Calcium 8.2 mg/dl (8.6-10.3); Creatinine Clr Calc Pharmacy 20.5 ml/min; INR 2.6 (0.9-1.1); Magnesium 1.6 mg/dl (1.7-2.4); Potassium 3.4 mmol/L (3.5-5.1); Prothrombin Time 26.1 Seconds (9.0-12.0)
[2024-06-06] MEDS: POTASSIUM CHLORIDE CRTAB 20 MEQ TABCR PO ONE (09:30)
[2024-06-06] MEDS: MAGNESIUM SULFATE / D5W 1 GM/100 ML BAG IV ONE (09:30)
--- NOTE | 2024-06-06 11:11 | Nephrology Progress Note ---
Date of Service June 06, 2024 Assessment & Plan Admission and Anticipated Discharge Date Admission Date: May 31, 2024 Subjective Assessment & Plan (1) ESRD (end stage renal disease) on dialysis: Plan: new to dialysis as of March 2024. after/ as he was starting HD, he was diagnosed w/ AL amyloidosis AND IgG kappa paraproteinemia AND hypercoag state HD 06/01 > tolerated 1L UF; midodrine dependent Dialysis tomorrow---3hr 15 mins. and take 1500 ml off. CVC is fine. Not eating much and even this might be difficult as he gets low BP he'll need to start coming to HD on a lift pad/ wheelchair after d/c unless dramatic change in functional status. pls alert case mgt so we can plan he will need jose antonio lift at home (2) Immunocompromised: Plan: b/c he's on chemotherapy as well. He saw heme 05/21 > continued on regimen started 1/2 of weekly velcade, weekly cyclophosphamide (held after 05/21 heme visit), darzalex faspro weekly, weekly decadron. CYC for now on hold (3) AL amyloidosis: Plan: his paraproteinemia/amyloidosis involves the kidneys w/ possible involvement of heart, liver, and autonomic nervous system; oncology does not r/o its contributing to his hypotension and syncope. (4) Hypercoagulable state: Plan: on coumadin; he lost a leg in March d/t arterial thrombus; also has PE; h/o Buergers S--Not eating much. BP drops quickly in dialysis. very weak and barely interactive. Chronically very ill. CVC fine Physical Exam Physical Exam: Constitutional:Awake, very weak and sick. Does not appear to be in any distress. Respiratory: Bilateral vesicular breath sound. On RA now Cardiovascular: RRR, no murmur, no edema Vessels: no JVD or carotid bruit Chest: normal inspection of chest Abdomen: normal bowel sounds, soft, nontender, no hepatosplenomegaly Musculoskeletal: Lt knee BKA. Neurologic: PERRL, EOMI, grossly moves all extremities. Results & Data Vital Signs (Past 12 Hours) Vital Signs Temp Pulse Pulse Pulse Resp BP Pulse Ox 06/06/24 07:43 36.8 C 85 16 121/68 94 06/06/24 07:37 06/06/24 07:26 88 06/06/24 04:00 36.9 C 83 18 123/69 94 06/05/24 23:48 36.9 C 87 18 107/65 95 O2 Del Method 06/06/24 07:43 Room Air 06/06/24 07:37 Room Air 06/06/24 07:26 06/06/24 04:00 Room Air 06/05/24 23:48 Room Air
[2024-06-06] MEDS: ADVANCED PROBIOTIC 625 MG CAPSULE PO SCH (12:31)
--- NOTE | 2024-06-06 17:41 | Hospitalist Progress Note ---
Date of Service June 06, 2024 Assessment & Plan (1) AMS (altered mental status): (2) Syncope: (3) Multiple myeloma without remission: Plan: Patient is 74 yr male with PMH ESRD on HD, multiple myeloma, cirrhosis, Buerger disease, PVD, Burger's disease, BPH, AL light chain amyloidosis, history left above knee amputation, history of pulmonary embolism presented to ER with c/o reported syncope and hypotension at dialysis 05/31. Altered mental status Possible metabolic encephalopathy due to UTI, Chemo Syncopal episode H/O Hypotension Multiple myeloma Generalized weakness Ambulatory dysfunction Acute UTI --Recent hospitalization for AMS after chemo which reports mental status returned to baseline. 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 reports mental status improving over past 2 days. --CT head: No acute intracranial abnormality --CXR: No acute infiltrate --NH3 level wnl, MRSA neg --Blood cx negative to date --Urine cx growing K. pnuemonia -- Continue IV Rocephin -- Reorient frequently to minimize delirium --Patient's family prefers to go to rehab for short-term Case management to help with discharge planning Will complete antibiotic course tomorrow Diarrhea Likely due to antibiotics Will check stool for C. difficile if recurrent Added probiotics Elevated troponin Trop downtrending 98-->88--> 82 EKG: Sinus rhythm, LAFB Denies chest pain ESRD On HD on MWF schedule Nephrology consult for assistance with HD Continue dialysis as per nephrology Cirrhosis Noted on prior abdominal imaging Ammonia level WNL Monitor Buerger Disease History PVD History prior PE Continue aspirin, warfarin Monitor INR 2.6 today BPH History requiring Sousa cath in past. No current Sousa cath. Requires self cath by (who prior nurse) typically once daily DVT Px warfarin CODE STATUS Full Code Admission and Anticipated Discharge Date Admission Date: May 31, 2024 Subjective Patient is seen and examined at bedside Mental status seem to be better today States having loose BM today Offers no other complaints Poor historian Denies any chest pain, dyspnea, nausea, vomiting, abdominal pain Review of Systems Review of Systems: All systems reviewed & are unremarkable except as noted in Subjective Physical Exam Physical Exam: Physical Exam: Vitals signs as noted above General Appearance:Moderately built and nourished, no apparent distress Head: normocephalic, Atraumatic Eyes: normal inspection, EOMI Neck: supple, Trachea midline Respiratory/Chest: Normal breath sounds, CTA, No accessory muscle use Cardiovascular: S1, S2, No murmur Abdomen/GI:Soft, Non tender, Bowel sounds present Extremities/Musculoskeletal:normal inspection, no edema, Left AKA Neurologic/Psych:AAOX1, grossly no focal neurological deficits Skin: normal color, warm Results & Data Results & Data Vital Signs (Past 12 Hours) Vital Signs Temp Pulse Pulse Resp BP Pulse Ox O2 Del Method 06/06/24 16:59 73 06/06/24 14:51 36.4 C L 76 16 109/65 94 Room Air 06/06/24 11:48 36.3 C L 75 16 113/65 93 Room Air 06/06/24 07:43 36.8 C 85 16 121/68 94 Room Air 06/06/24 07:37 Room Air 06/06/24 07:26 88 Laboratory Results [facility] 06/06/24 06:24 Sodium 141 Potassium 3.4 L Chloride 103 Carbon Dioxide 31 BUN 33 H Creatinine 3.21 H D Glucose 73 Calcium 8.2 L (2) Syncope Syncope type: unspecified Qualified Code(s): R55 - Syncope and collapse
[2024-06-06] MEDS: MAGNESIUM CHLORIDE W/CALCIUM 64MG DELAYED REL TAB PO SCH (19:51)
[2024-06-06] MEDS: LOPERAMIDE HCL 2 MG CAP PO PRN (19:51)
[2024-06-07 06:24] LABS: Mean Corpuscular Hgb Conc 32.4 g/dL (32.0-36.0); Mean Corpuscular Volume 95.6 fL (80.0-100.0); Mean Platelet Volume 10.4 fL (9.4-12.4); Platelet Count 585 K/uL (130-400); RDW Coefficient of Variation 20.2 % (11.5-14.5); RDW Standard Deviation 69.4 fL (36.4-46.3); Red Blood Count 3.87 M/uL (4.70-6.10)
[2024-06-07 06:44] LABS: BUN Creatinine Ratio 11.8 (10-20); Calcium 8.4 mg/dl (8.6-10.3); Creatinine Clr Calc Pharmacy 16.9 ml/min; Magnesium 1.9 mg/dl (1.7-2.4); Potassium 3.6 mmol/L (3.5-5.1)
[2024-06-07 07:06] LABS: INR 3.1 (0.9-1.1); Prothrombin Time 30.7 Seconds (9.0-12.0)
--- NOTE | 2024-06-07 12:20 | Dialysis Progress Note ---
Date of Service June 07, 2024 Assessment & Plan Admission and Anticipated Discharge Date Admission Date: May 31, 2024 Subjective Assessment & Plan (1) ESRD (end stage renal disease) on dialysis: Plan: new to dialysis as of March 2024. after/ as he was starting HD, he was diagnosed w/ AL amyloidosis AND IgG kappa paraproteinemia AND hypercoag state Dialysis today---3hr 30 mins. and take 1500 ml off. CVC is fine he'll need to start coming to HD on a lift pad/ wheelchair after d/c unless dramatic change in functional status. pls alert case mgt so we can plan he will need jose antonio lift at home. But as of now No Discharge disposition yet. (2) Immunocompromised: Plan: b/c he's on chemotherapy as well. He saw heme 05/21 > continued on regimen started 1/2 of weekly velcade, weekly cyclophosphamide (held after 05/21 heme visit), darzalex faspro weekly, weekly decadron. CYC for now on hold (3) AL amyloidosis: Plan: his paraproteinemia/amyloidosis involves the kidneys w/ possible involvement of heart, liver, and autonomic nervous system; oncology does not r/o its contributing to his hypotension and syncope. 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 very weak and barely interactive. Chronically very ill. BP is already low and UF target lowered. CVC fine Physical Exam Physical Exam: Constitutional:Awake, very weak and sick. Does not appear to be in any distress. Respiratory: Bilateral vesicular breath sound. On RA now Cardiovascular: RRR, no murmur, no edema Vessels: no JVD or carotid bruit Chest: normal inspection of chest Abdomen: normal bowel sounds, soft, nontender, no hepatosplenomegaly Musculoskeletal: Lt knee BKA. Neurologic: PERRL, EOMI, grossly moves all extremitie Results & Data Vital Signs (Past 12 Hours) Vital Signs Temp Pulse Pulse Resp BP BP BP 06/07/24 12:00 71 112/69 06/07/24 11:30 77 113/68 06/07/24 11:00 73 126/74 06/07/24 10:30 81 109/81 06/07/24 10:00 62 137/75 02/07/25 09:31 72 106/52 L 06/07/24 07:24 82 06/07/24 07:24 06/07/24 07:20 36.4 C L 83 18 126/64 06/07/24 04:00 36.8 C 86 18 141/73 H Pulse Ox O2 Del Method 06/07/24 12:00 06/07/24 11:30 06/07/24 11:00 06/07/24 10:30 06/07/24 10:00 06/07/24 09:31 06/07/24 07:24 06/07/24 07:24 Room Air 06/07/24 07:20 96 Room Air 06/07/24 04:00 94 Room Air
[2024-06-07] MEDS: EPOETIN ALFA 10,000 UNITS/ML VIAL IV ONE (12:42)
--- NOTE | 2024-06-07 17:32 | Hospitalist Progress Note ---
Date of Service June 07, 2024 Assessment & Plan (1) AMS (altered mental status): (2) Syncope: (3) Multiple myeloma without remission: Plan: Patient is 74 yr male with PMH ESRD on HD, multiple myeloma, cirrhosis, Buerger disease, PVD, Burger's disease, BPH, AL light chain amyloidosis, history left above knee amputation, history of pulmonary embolism presented to ER with c/o reported syncope and hypotension at dialysis 05/31. Altered mental status Possible metabolic encephalopathy due to UTI, Chemo Syncopal episode H/O Hypotension Multiple myeloma Generalized weakness Ambulatory dysfunction Acute UTI --Recent hospitalization for AMS after chemo which reports mental status returned to baseline. 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 reports mental status improving over past 2 days. --CT head: No acute intracranial abnormality --CXR: No acute infiltrate --NH3 level wnl, MRSA neg --Blood cx negative to date --Urine cx growing K. pneumonia -- Completed IV Rocephin course -- Reorient frequently to minimize delirium --Patient's family prefers to go to rehab for short-term Case management to help with discharge planning Waiting for placement Diarrhea Likely due to antibiotics Will check stool for C. difficile if recurrent Added probiotics No diarrhea today Elevated troponin Trop downtrending 98-->88--> 82 EKG: Sinus rhythm, LAFB Denies chest pain ESRD On HD on MWF schedule Nephrology consult for assistance with HD Continue dialysis as per nephrology Cirrhosis Noted on prior abdominal imaging Ammonia level WNL Monitor Buerger Disease History PVD History prior PE Continue aspirin, warfarin Monitor INR 3.1 today Will need to readjust Coumadin dose tmw based on INR levels BPH History requiring Sousa cath in past. No current Sousa cath. Requires self cath by (who prior nurse) typically once daily DVT Px warfarin CODE STATUS Full Code Admission and Anticipated Discharge Date Admission Date: May 31, 2024 Subjective Patient is seen and examined at bedside Poor historian secondary to memory issues Was having dialysis during my encounter today Denies any diarrhea today Offers no other complaints Also denies any chest pain, dyspnea, nausea, vomiting, abdominal pain Review of Systems Review of Systems: Other Physical Exam Physical Exam: Physical Exam: Vitals signs as noted above General Appearance:Moderately built and nourished, no apparent distress Head: normocephalic, Atraumatic Eyes: normal inspection, EOMI Neck: supple, Trachea midline Respiratory/Chest: Normal breath sounds, CTA, No accessory muscle use Cardiovascular: S1, S2, No murmur Abdomen/GI:Soft, Non tender, Bowel sounds present Extremities/Musculoskeletal:normal inspection, no edema, Left AKA Neurologic/Psych:AAOX1, grossly no focal neurological deficits Skin: normal color, warm Results & Data Results & Data Vital Signs (Past 12 Hours) Vital Signs Temp Pulse Pulse Pulse Resp BP BP 06/07/24 16:08 36.3 C L 85 18 116/64 06/07/24 15:10 77 06/07/24 13:16 36.4 C L 82 06/07/24 12:30 74 113/88 06/07/24 12:00 71 112/69 06/07/24 11:30 77 113/68 06/07/24 11:00 73 126/74 06/07/24 10:30 81 109/81 06/07/24 10:00 62 137/75 06/07/24 09:31 72 106/52 L 06/07/24 07:24 82 06/07/24 07:24 06/07/24 07:20 36.4 C L 83 18 126/64 BP Pulse Ox O2 Del Method 06/07/24 16:08 94 Room Air 06/07/24 15:10 06/07/24 13:16 113/89 06/07/24 12:30 06/07/24 12:00 06/07/24 11:30 06/07/24 11:00 06/07/24 10:30 06/07/24 10:00 06/07/24 09:31 06/07/24 07:24 06/07/24 07:24 Room Air 06/07/24 07:20 96 Room Air Laboratory Results Short CBC 06/07/24 Range/Units 05:23 WBC 8.90 (4.8-10.8) K/ul Hgb 12.0 L (14.0-18.0) g/dl Hct 37.0 L (42.0-52.0) % Plt Count 585 H (130-400) K/uL BMP 06/07/24 05:23 Sodium 142 Potassium 3.6 Chloride 103 Carbon Dioxide 28 BUN 46 H Creatinine 3.89 H D Glucose 77 Calcium 8.4 L (2) Syncope Syncope type: unspecified Qualified Code(s): R55 - Syncope and collapse
[2024-06-08 10:40] LABS: INR 3.1 (0.9-1.1); Prothrombin Time 30.3 Seconds (9.0-12.0)
--- NOTE | 2024-06-08 12:59 | Hospitalist Progress Note ---
Date of Service June 08, 2024 Assessment & Plan (1) AMS (altered mental status): (2) Syncope: (3) Multiple myeloma without remission: Plan: Patient is 74 yr male with PMH ESRD on HD, multiple myeloma, cirrhosis, Buerger disease, PVD, Burger's disease, BPH, AL light chain amyloidosis, history left above knee amputation, history of pulmonary embolism presented to ER with c/o reported syncope and hypotension at dialysis 05/31. Altered mental status Possible metabolic encephalopathy due to UTI, Chemo Syncopal episode H/O Hypotension Multiple myeloma Generalized weakness Ambulatory dysfunction Acute UTI --Recent hospitalization for AMS after chemo which reports mental status returned to baseline. 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 reports mental status improving over past 2 days. --CT head: No acute intracranial abnormality --CXR: No acute infiltrate --NH3 level wnl, MRSA neg --Blood cx negative to date --Urine cx growing K. pneumonia -- Completed IV Rocephin course -- Reorient frequently to minimize delirium -PT OT recommends rehab Case management to help with discharge planning Medically stable, waiting for rehab placement Diarrhea Likely due to antibiotics Will check stool for C. difficile if recurrent Continue probiotics Resolved Elevated troponin Trop downtrending 98-->88--> 82 EKG: Sinus rhythm, LAFB Denies chest pain ESRD On HD on MWF schedule Nephrology consult for assistance with HD Continue dialysis as per nephrology Cirrhosis Noted on prior abdominal imaging Ammonia level WNL Monitor Buerger Disease History PVD History prior PE Continue aspirin, warfarin Monitor INR 3.1 today Adjust Coumadin dose as needed: Decreased to 4 mg today BPH History requiring Sousa cath in past. No current Sousa cath. Requires self cath by (who prior nurse) typically once daily DVT Px warfarin CODE STATUS Full Code Admission and Anticipated Discharge Date Admission Date: May 31, 2024 Subjective Patient is seen and examined at bedside Poor historian secondary to memory issues Discussed with patient's family at bedside and over the phone Patient offers no complaints Denies any chest pain, dyspnea, nausea, vomiting, abdominal pain Waiting for placement Review of Systems Review of Systems: All systems reviewed & are unremarkable except as noted in Subjective Physical Exam Physical Exam: Physical Exam: Vitals signs as noted above General Appearance:Moderately built and nourished, no apparent distress Head: normocephalic, Atraumatic Eyes: normal inspection, EOMI Neck: supple, Trachea midline Respiratory/Chest: Normal breath sounds, CTA, No accessory muscle use Cardiovascular: S1, S2, No murmur Abdomen/GI:Soft, Non tender, Bowel sounds present Extremities/Musculoskeletal:normal inspection, no edema, Left AKA Neurologic/Psych:AAOX1, grossly no focal neurological deficits Skin: normal color, warm Results & Data Results & Data Vital Signs (Past 12 Hours) Vital Signs Temp Pulse Pulse Resp BP Pulse Ox O2 Del Method 06/08/24 11:20 36.8 C 80 16 129/58 L 93 Room Air 06/08/24 10:34 Room Air 06/08/24 07:31 36.7 C 79 16 142/67 H 93 Room Air 06/08/24 07:19 82 06/08/24 02:44 36.5 C 80 18 128/64 93 Room Air (2) Syncope Syncope type: unspecified Qualified Code(s): R55 - Syncope and collapse
[2024-06-08] MEDS: WARFARIN SOD 4 MG TAB PO SCH (15:50)
[2024-06-09 08:01] LABS: Hematocrit (blood only) 33.7 % (42.0-52.0); Hemoglobin 11.1 g/dl (14.0-18.0); Mean Corpuscular Hemoglobin 31.6 pg (25.0-34.0); Mean Corpuscular Hgb Conc 32.9 g/dL (32.0-36.0); Mean Platelet Volume 10.6 fL (9.4-12.4); Nucleated RBC # (auto) 0.04 K/uL (0.00-0.12); Nucleated RBC % (auto) 0.5 %; Platelet Count 498 K/uL (130-400); RDW Coefficient of Variation 20.4 % (11.5-14.5); RDW Standard Deviation 70.1 fL (36.4-46.3); Red Blood Count 3.51 M/uL (4.70-6.10); White Blood Count 8.54 K/ul (4.8-10.8)
[2024-06-09 08:18] LABS: BUN Creatinine Ratio 10.4 (10-20); Calcium 8.5 mg/dl (8.6-10.3); Creatinine Clr Calc Pharmacy 17.2 ml/min; Potassium 4.2 mmol/L (3.5-5.1)
[2024-06-09 08:26] LABS: INR 3.1 (0.9-1.1); Prothrombin Time 30.6 Seconds (9.0-12.0)
--- NOTE | 2024-06-09 14:31 | Hospitalist Progress Note ---
Date of Service June 09, 2024 Assessment & Plan (1) AMS (altered mental status): (2) Syncope: (3) Multiple myeloma without remission: Plan: Patient is 74 yr male with PMH ESRD on HD, multiple myeloma, cirrhosis, Buerger disease, PVD, Burger's disease, BPH, AL light chain amyloidosis, history left above knee amputation, history of pulmonary embolism presented to ER with c/o reported syncope and hypotension at dialysis 05/31. Altered mental status Possible metabolic encephalopathy due to UTI, Chemo Syncopal episode H/O Hypotension Multiple myeloma Generalized weakness Ambulatory dysfunction Acute UTI --Recent hospitalization for AMS after chemo which reports mental status returned to baseline. 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 reports mental status improving over past 2 days. --CT head: No acute intracranial abnormality --CXR: No acute infiltrate --NH3 level wnl, MRSA neg --Blood cx negative to date --Urine cx growing K. pneumonia -- Completed IV Rocephin course -PT OT recommends rehab Case management to help with discharge planning Medically stable, waiting for rehab placement Reorient frequently to minimize delirium Diarrhea Likely due to antibiotics Will check stool for C. difficile if recurrent Continue probiotics Resolved Elevated troponin Trop downtrending 98-->88--> 82 EKG: Sinus rhythm, LAFB Denies chest pain ESRD On HD on MWF schedule Nephrology consult for assistance with HD Continue dialysis as per nephrology Cirrhosis Noted on prior abdominal imaging Ammonia level WNL Monitor Buerger Disease History PVD History prior PE Continue aspirin, warfarin Monitor INR 3.1 today Adjust Coumadin dose as needed: Decreased to 4 mg today BPH History requiring Sousa cath in past. No current Sousa cath. Requires self cath by (who prior nurse) typically once daily DVT Px warfarin CODE STATUS Full Code Admission and Anticipated Discharge Date Admission Date: May 31, 2024 Subjective Patient is seen and examined at bedside Poor historian secondary to memory issues Pleasantly confused during my encounter Denies any chest pain, dyspnea, abdominal pain Waiting for placement Review of Systems Review of Systems: All systems reviewed & are unremarkable except as noted in Subjective Physical Exam Physical Exam: Physical Exam: Vitals signs as noted above General Appearance:Moderately built and nourished, no apparent distress Head: normocephalic, Atraumatic Eyes: normal inspection, EOMI Neck: supple, Trachea midline Respiratory/Chest: Normal breath sounds, CTA, No accessory muscle use Cardiovascular: S1, S2, No murmur Abdomen/GI:Soft, Non tender, Bowel sounds present Extremities/Musculoskeletal:normal inspection, no edema, Left AKA Neurologic/Psych:AAOX1, grossly no focal neurological deficits Skin: normal color, warm Results & Data Results & Data Vital Signs (Past 12 Hours) Vital Signs Temp Pulse Pulse Resp BP BP Pulse Ox 06/09/24 14:03 75 06/09/24 11:23 36.3 C L 82 18 136/79 94 06/09/24 10:26 06/09/24 07:53 36.3 C L 84 18 132/69 93 06/09/24 07:24 76 06/09/24 02:33 36.5 C 85 18 151/76 H 92 O2 Del Method 06/09/24 14:03 06/09/24 11:23 Room Air 06/09/24 10:26 Room Air 06/09/24 07:53 Room Air 06/09/24 07:24 06/09/24 02:33 Room Air Laboratory Results Short CBC 06/09/24 Range/Units 07:20 WBC 8.54 (4.8-10.8) K/ul Hgb 11.1 L (14.0-18.0) g/dl Hct 33.7 L (42.0-52.0) % Plt Count 498 H (130-400) K/uL BMP 06/09/24 07:20 Sodium 141 Potassium 4.2 Chloride 105 Carbon Dioxide 30 BUN 40 H Creatinine 3.84 H Glucose 79 Calcium 8.5 L (2) Syncope Syncope type: unspecified Qualified Code(s): R55 - Syncope and collapse
[2024-06-10 10:40] LABS: BUN Creatinine Ratio 11.4 (10-20); Calcium 7.9 mg/dl (8.6-10.3); Creatinine Clr Calc Pharmacy 14.2 ml/min; Potassium 3.3 mmol/L (3.5-5.1)
[2024-06-10 10:44] LABS: INR 3.3 (0.9-1.1); Prothrombin Time 32.6 Seconds (9.0-12.0)
--- NOTE | 2024-06-10 13:34 | Dialysis Progress Note ---
Date of Service June 10, 2024 Assessment & Plan (1) ESRD (end stage renal disease) on dialysis: Plan: new to dialysis as of March 2024; after/ as he was starting HD, he was diagnosed w/ AL amyloidosis AND IgG kappa paraproteinemia AND hypercoag state > had been started on CTX as OP chemistries notable for K 3.3; started tx on 2K bath before labs posted; changed thereafter to 4K -HD today > tolerated 1.5L UF on 06/07; midodrine dependent and on max dose >next HD 06/12 or as needs dictate >>>he'll need to start coming to HD on a lift pad/ wheelchair after d/c unless dramatic change in functional status >> pls alert case mgt so we can plan; may need jose antonio lift at home >also needs to have second person available at HD to help redirect, reposition in the bed (2) Immunocompromised: Plan: b/c he's on chemotherapy as well. He saw heme 05/21 > continued on regimen started 1/2 of weekly velcade, weekly cyclophosphamide (held after 05/21 heme visit), darzalex faspro weekly, weekly decadron. 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 if this is due to chemo or ? stroke or atypical infection or chronic hypotension; continue supportive care Admission and Anticipated Discharge Date Admission Date: May 31, 2024 Subjective seen and evaluated on dialysis. despite nurses' repeated efforts to redirect, his legs are hannging off bed; has had to be repositioned (takes 2 people) 3X < he doesn't/ can't help w/ that; unable to give ROS except tells me abd does not hurt Review of Systems 2 Review of Systems: Unobtainable due to reduced consciousness (encephalopathy) Physical Exam 2 Constitutional: well developed, + altered mental status, + physical limitations (weak), + frail appearing and + malnourished; no acute distress Eyes: EOM intact bilaterally ENMT: Mouth: + dry oral mucous membranes Respiratory: normal respiratory effort Auscultation: + diminished lung sounds Cardiovascular: Rate/Rhythm: regular rate and regular rhythm Extremities: n o edema Gastrointestinal (Abdomen): Inspection/Auscultation: + abdomen distended, normal bowel sounds and + caput medusae present Percussion/Palpation: + guarding (slight), abdomen soft and + fluid wave (possible); abdomen nontender Musculoskeletal: Extremities: strength 5/5 throughout (mendez, L AKA) Skin: no rashes, warm and dry Psychiatric: Orientation: alert (needs redirection, reinforcement), oriented to person and cooperative Results & Data Vital Signs (Past 12 Hours) Vital Signs Temp Pulse Pulse Resp BP BP Pulse Ox 06/10/24 11:30 71 125/60 06/10/24 11:00 69 125/81 06/10/24 10:30 52 L 110/51 L 06/10/24 10:11 79 06/10/24 10:00 74 128/85 06/10/24 09:34 63 84/65 L 06/10/24 09:30 36.8 C 76 06/10/24 07:41 36.9 C 68 20 148/72 H 94 O2 Del Method 06/10/24 11:30 06/10/24 11:00 06/10/24 10:30 06/10/24 10:11 06/10/24 10:00 06/10/24 09:34 06/10/24 09:30 06/10/24 07:41 Room Air Laboratory Results 06/09/24 07:20 06/10/24 09:42
[2024-06-10] MEDS: POTASSIUM CHLORIDE 20 MEQ/15 ML UDC PO ONE (13:38)
--- NOTE | 2024-06-10 15:45 | Hospitalist Progress Note ---
Date of Service June 10, 2024 Assessment & Plan (1) AMS (altered mental status): (2) Syncope: (3) Multiple myeloma without remission: Plan: Patient is 74 yr male with PMH ESRD on HD, multiple myeloma, cirrhosis, Buerger disease, PVD, Burger's disease, BPH, AL light chain amyloidosis, history left above knee amputation, history of pulmonary embolism presented to ER with c/o reported syncope and hypotension at dialysis 05/31. Altered mental status Possible metabolic encephalopathy due to UTI, Chemo Syncopal episode H/O Hypotension Multiple myeloma Generalized weakness Ambulatory dysfunction Acute UTI --Recent hospitalization for AMS after chemo which reports mental status returned to baseline. Repeat chemo 8 days ago [employer] and since with AMS, generalized weakness, bedbound and poor oral intake. reports mental status improving over past 2 days. --CT head: No acute intracranial abnormality --CXR: No acute infiltrate --NH3 level wnl, MRSA neg --Blood cx negative to date --Urine cx growing K. pneumonia -- Completed IV Rocephin course -PT OT recommends rehab Case management to help with discharge planning Reorient frequently to minimize delirium Patient was refused for acute rehab. Patient's family not interested in SNF placement Family prefers to take patient home Diarrhea Likely due to antibiotics Will check stool for C. difficile if recurrent Continue probiotics Resolved Elevated troponin Trop downtrending 98-->88--> 82 EKG: Sinus rhythm, LAFB Denies chest pain ESRD On HD on MWF schedule Nephrology consult for assistance with HD Continue dialysis as per nephrology Cirrhosis Noted on prior abdominal imaging Ammonia level WNL Monitor Buerger Disease History PVD History prior PE Continue aspirin, warfarin Monitor INR 3.3 today Adjust Coumadin dose as needed: Decreased to 2 mg today Will need follow-up with Coumadin clinic on discharge BPH History requiring Sousa cath in past. No current Sousa cath. Requires self cath by (who prior nurse) typically once daily DVT Px warfarin CODE STATUS Full Code Disposition Home likely tomorrow Admission and Anticipated Discharge Date Admission Date: May 31, 2024 Subjective Patient is seen and examined at bedside Poor historian secondary to memory issues Was having hemodialysis during my encounter this morning Pleasantly confused Unable to obtain ROS Review of Systems Review of Systems: Other Physical Exam Physical Exam: Physical Exam: Vitals signs as noted above General Appearance:Moderately built and nourished, no apparent distress Head: normocephalic, Atraumatic Eyes: normal inspection, EOMI Neck: supple, Trachea midline Respiratory/Chest: Normal breath sounds, CTA, No accessory muscle use Cardiovascular: S1, S2, No murmur Abdomen/GI:Soft, Non tender, Bowel sounds present Extremities/Musculoskeletal:normal inspection, no edema, Left AKA Neurologic/Psych: Alert, awake, grossly no focal neurological deficits Skin: normal color, warm Results & Data Results & Data Vital Signs (Past 12 Hours) Vital Signs Temp Pulse Pulse Resp BP BP BP 06/10/24 15:28 36.7 C 73 20 92/54 L 06/10/24 14:16 73 06/10/24 13:10 36.8 C 75 124/65 06/10/24 13:00 76 98/58 L 06/10/24 12:30 75 103/61 06/10/24 12:00 76 112/63 06/10/24 11:30 71 125/60 06/10/24 11:00 69 125/81 06/10/24 10:30 52 L 110/51 L 06/10/24 10:11 79 06/10/24 10:00 74 128/85 06/10/24 09:34 63 84/65 L 06/10/24 09:30 36.8 C 76 06/10/24 07:41 36.9 C 68 20 148/72 H Pulse Ox O2 Del Method 06/10/24 15:28 96 Room Air 06/10/24 14:16 06/10/24 13:10 06/10/24 13:00 06/10/24 12:30 06/10/24 12:00 06/10/24 11:30 06/10/24 11:00 06/10/24 10:30 06/10/24 10:11 06/10/24 10:00 06/10/24 09:34 06/10/24 09:30 06/10/24 07:41 94 Room Air Laboratory Results BMP 06/10/24 09:42 Sodium 143 Potassium 3.3 L D Chloride 107 Carbon Dioxide 28 BUN 53 H Creatinine 4.64 H* D Glucose 94 Calcium 7.9 L (2) Syncope Syncope type: unspecified Qualified Code(s): R55 - Syncope and collapse
[2024-06-10] MEDS: WARFARIN SOD 2 MG TAB PO SCH (16:52)
[2024-06-11 07:45] VITALS: RESP 16; TEMP 97.3; O2SAT 96
[2024-06-11 08:19] LABS: INR 2.8 (0.9-1.1); Prothrombin Time 27.8 Seconds (9.0-12.0)
[2024-06-11] MEDS: POTASSIUM CHLORIDE CRTAB 20 MEQ TABCR PO ONE (09:52)
[2024-06-11 11:14] VITALS: PULSE 70
--- NOTE | 2024-06-11 11:27 | Hospitalist Progress Note ---
Date of Service June 11, 2024 Assessment & Plan (1) AMS (altered mental status): (2) Syncope: (3) Multiple myeloma without remission: Plan: Patient is 74 yr male with PMH ESRD on HD, multiple myeloma, cirrhosis, Buerger disease, PVD, Burger's disease, BPH, AL light chain amyloidosis, history left above knee amputation, history of pulmonary embolism presented to ER with c/o reported syncope and hypotension at dialysis 05/31. Altered mental status Possible metabolic encephalopathy due to UTI, Chemo Syncopal episode H/O Hypotension Multiple myeloma Generalized weakness Ambulatory dysfunction Acute UTI --Recent hospitalization for AMS after chemo which reports mental status returned to baseline. Repeat chemo 8 days ago [employer] and since with AMS, generalized weakness, bedbound and poor oral intake. reports mental status improving over past 2 days. --CT head: No acute intracranial abnormality --CXR: No acute infiltrate --NH3 level wnl, MRSA neg --Blood cx negative to date --Urine cx growing K. pneumonia -- Completed IV Rocephin course -PT OT recommends rehab Case management to help with discharge planning Reorient frequently to minimize delirium Patient was refused for acute rehab. Patient's family not interested in SNF placement Family prefers to take patient home Plan to discharge home today Diarrhea Likely due to antibiotics Will check stool for C. difficile if recurrent Continue probiotics Resolved Elevated troponin Trop downtrending 98-->88--> 82 EKG: Sinus rhythm, LAFB Denies chest pain ESRD On HD on MWF schedule Nephrology consult for assistance with HD Continue dialysis as per nephrology Cirrhosis Noted on prior abdominal imaging Ammonia level WNL Monitor Buerger Disease History PVD History prior PE Continue aspirin, warfarin Monitor INR 2.8 today Continue Coumadin for anticoagulation Will need follow-up with Coumadin clinic on discharge BPH History requiring Sousa cath in past. No current Sousa cath. Requires self cath by (who prior nurse) typically once daily DVT Px warfarin CODE STATUS Full Code Disposition Home Admission and Anticipated Discharge Date Admission Date: May 31, 2024 Subjective Patient is seen and examined at bedside Poor historian secondary to memory issues No distress on exam Offers no complaints Plan to be discharged home today Review of Systems Review of Systems: Other Physical Exam Physical Exam: Physical Exam: Vitals signs as noted above General Appearance:Moderately built and nourished, no apparent distress Head: normocephalic, Atraumatic Eyes: normal inspection, EOMI Neck: supple, Trachea midline Respiratory/Chest: Normal breath sounds, CTA, No accessory muscle use Cardiovascular: S1, S2, No murmur Abdomen/GI:Soft, Non tender, Bowel sounds present Extremities/Musculoskeletal:normal inspection, no edema, Left AKA Neurologic/Psych: Alert, awake, grossly no focal neurological deficits Skin: normal color, warm Results & Data Results & Data Vital Signs (Past 12 Hours) Vital Signs Temp Pulse Pulse Pulse Resp BP BP 06/11/24 11:12 36.3 C L 70 16 117/57 L 06/11/24 09:30 76 06/11/24 07:43 36.3 C L 81 16 129/62 06/11/24 07:42 06/11/24 03:25 75 06/11/24 00:00 36.8 C 91 H 18 137/72 06/10/24 23:49 Pulse Ox O2 Del Method 06/11/24 11:12 96 Room Air 06/11/24 09:30 06/11/24 07:43 96 Room Air 06/11/24 07:42 Room Air 06/11/24 03:25 06/11/24 00:00 91 Room Air 06/10/24 23:49 Room Air (2) Syncope Syncope type: unspecified Qualified Code(s): R55 - Syncope and collapse
--- NOTE | 2024-06-11 11:31 | Discharge Summary ---
Date of Service June 11, 2024 Admission HPI Per Admitting Provider Patient is 74 year old male with PMH ESRD on HD, multiple myeloma, cirrhosis, Buerger disease, PVD, Burger's disease, BPH, AL light chain amyloidosis, history left above knee amputation, history of pulmonary embolism presented to ER with c/o syncope. History obtained from and inpatient chart review. reports patient states at home has near syncopal episodes and when that occurs they have him get supine before he actually passes out. he is on midodrine for history hypotension. Recent hospital admission 05/05/2024-05/13/2024 for altered mental status, possible metabolic encephalopathy thought possible secondary to receiving chemo. At that time had unremarkable infectious workup. CT head normal. Had abnormal EEG, neurology was consulted and had recommended MRI if able however MRI unable to be obtained. reports patient's mental status returned to his baseline. States he has been weak. Rehab was suggested but patient's wanted to trial home care. reports had 2nd round of chemo 8 days ago and reports since he has been bed bound and confused. He had not eating and drinking after chemo. States 2 days ago started eating and drinking and then had some loose BM's and his mental status was improving. He is still very weak. It is reported today patient had syncopal episode at dialysis and was hypotensive and was sent to ER. denies any noted cough, wheezing, noted SOB, vomiting. She states Sousa catheter is out. She will straight cath him as needed, usually once a day. Denies any known fever or chills. Admission Exam Per Admitting Provider Constitutional: Closing his eyes; opens intermittently with his name. Does not follow commands. Bruising present on right cheek Respiratory: Bilateral vesicular breath sound. Cardiovascular: RRR, no murmur, no edema Vessels: no JVD or carotid bruit Chest: normal inspection of chest Abdomen: normal bowel sounds, soft, nontender, no hepatosplenomegaly Musculoskeletal: Right knee BKA. No joints Neurologic: PERRL, EOMI, grossly moves all extremities. Principal Diagnosis Acute metabolic encephalopathy Syncope Urinary tract infection End-stage renal disease on dialysis Discharge Data Allergies Allergy/AdvReac Type Severity Reaction Status Date / Time dorzolamide Allergy Severe eyes Verified 05/05/24 20:55 swollen azithromycin Allergy Intermediate Rash Verified 05/05/24 20:55 Consultations 05/31/24 15:38 ED Decision to Admit Stat 05/31/24 16:49 Consult Nephrology Routine 06/02/24 04:40 Consult Urology Routine Procedures Performed Laboratory Results WBC 8.54 K/ul (4.8-10.8) 06/09/24 07:20 RBC 3.51 M/uL (4.70-6.10) L 06/09/24 07:20 Hgb 11.1 g/dl (14.0-18.0) L 06/09/24 07:20 Hct 33.7 % (42.0-52.0) L 06/09/24 07:20 MCV 96.0 fL (80.0-100.0) 06/09/24 07:20 MCH 31.6 pg (25.0-34.0) 06/09/24 07:20 MCHC 32.9 g/dL (32.0-36.0) 06/09/24 07:20 RDW Std Deviation 70.1 fL (36.4-46.3) H 06/09/24 07:20 RDW Coeff of Vince 20.4 % (11.5-14.5) H 06/09/24 07:20 Plt Count 498 K/uL (130-400) H 06/09/24 07:20 MPV 10.6 fL (9.4-12.4) 06/09/24 07:20 Immature Gran % (Auto) 0.4 % 06/05/24 07:50 Neut % (Auto) 68.2 % 06/05/24 07:50 Lymph % (Auto) 13.1 % 06/05/24 07:50 [place] % (Auto) 18.2 % 06/05/24 07:50 Eos % (Auto) 0.0 % 06/05/24 07:50 Baso % (Auto) 0.1 % 06/05/24 07:50 Neut # (Auto) 5.05 K/uL (1.40-6.50) 06/05/24 07:50 Lymph # (Auto) 0.97 K/uL (1.20-3.40) L 06/05/24 07:50 [place] # (Auto) 1.35 K/uL (0.11-0.59) H 06/05/24 07:50 Eos # (Auto) 0.00 K/uL (0.00-0.50) 06/05/24 07:50 Baso # (Auto) 0.01 K/uL (0.00-0.20) 06/05/24 07:50 Immature Gran # (Auto) 0.03 K/uL (0.01-0.20) 06/05/24 07:50 Absolute Nucleated RBC 0.04 K/uL (0.00-0.12) 06/09/24 07:20 Nucleated RBC % (auto) 0.5 % 06/09/24 07:20 Neutrophils % (Manual) Cancelled 06/03/24 05:59 Band Neutrophils % Cancelled 06/03/24 05:59 Lymphocytes % (Manual) Cancelled 06/03/24 05:59 Prolymphocyte % Cancelled 06/03/24 05:59 Reactive Lymphs % (Man) Cancelled 06/03/24 05:59 Monocytes % (Manual) Cancelled 06/03/24 05:59 Eosinophils % (Manual) Cancelled 06/03/24 05:59 Basophils % (Manual) Cancelled 06/03/24 05:59 Metamyelocytes % (Man) Cancelled 06/03/24 05:59 Myelocytes % (Man) Cancelled 06/03/24 05:59 Promyelocytes % (Man) Cancelled 06/03/24 05:59 Blast Cells % (Manual) Cancelled 06/03/24 05:59 Plasma Cell % (Manual) Cancelled 06/03/24 05:59 Other Cells % Cancelled 06/03/24 05:59 Nucleated RBC % Cancelled 06/03/24 05:59 Neutrophils # (Manual) Cancelled 06/03/24 05:59 Band Neutrophils # Cancelled 06/03/24 05:59 Total Absolute Neuts Cancelled 06/03/24 05:59 Lymphocytes # (Manual) Cancelled 06/03/24 05:59 Prolymphocyte # Cancelled 06/03/24 05:59 Reactive Lymphs # Cancelled 06/03/24 05:59 Total Abs Lymphocytes Cancelled 06/03/24 05:59 Monocytes # (Manual) Cancelled 06/03/24 05:59 Eosinophils # (Manual) Cancelled 06/03/24 05:59 Basophils # (Manual) Cancelled 06/03/24 05:59 Metamyelocytes # (Man) Cancelled 06/03/24 05:59 Myelocytes # (Manual) Cancelled 06/03/24 05:59 Promyelocytes # (Man) Cancelled 06/03/24 05:59 Blast Cells # (Man) Cancelled 06/03/24 05:59 Plasma Cell # (Manual) Cancelled 06/03/24 05:59 Other Cells # Cancelled 06/03/24 05:59 Nucleated RBCs # (Man) Cancelled 06/03/24 05:59 Hypersegmented Neuts Cancelled 06/03/24 05:59 Hyposegmented Neuts Cancelled 06/03/24 05:59 Hypogranular Neuts Cancelled 06/03/24 05:59 Large Granular Lymphs Cancelled 06/03/24 05:59 # Lrg Granular Lymphs Cancelled 06/03/24 05:59 Hairy Cells Cancelled 06/03/24 05:59 Smudge Cells Cancelled 06/03/24 05:59 Toxic Granulation Cancelled 06/03/24 05:59 Toxic Vacuolation Cancelled 06/03/24 05:59 Dohle Bodies Cancelled 06/03/24 05:59 Dariusz Rods Cancelled 06/03/24 05:59 Platelet Estimate Cancelled 06/03/24 05:59 Hypogranular Platelets Cancelled 06/03/24 05:59 Giant Platelets 1+ 06/03/24 09:43 Platelet Satelliting Cancelled 06/03/24 05:59 RBC Morphology Cancelled 06/03/24 05:59 Polychromasia 2+ 06/05/24 07:50 Hypochromasia Cancelled 06/03/24 05:59 Poikilocytosis Cancelled 06/03/24 05:59 Basophilic Stippling Cancelled 06/03/24 05:59 Anisocytosis Present 06/05/24 07:50 Microcytosis Cancelled 06/03/24 05:59 Macrocytosis Cancelled 06/03/24 05:59 Spherocytes Cancelled 06/03/24 05:59 Pappenheimer Bodies Cancelled 06/03/24 05:59 Sickle Cells Cancelled 06/03/24 05:59 Target Cells 1+ 06/05/24 07:50 Tear Drop Cells Cancelled 06/03/24 05:59 Ovalocytes Cancelled 06/03/24 05:59 Stomatocytes Cancelled 06/03/24 05:59 [place] Bodies Occasional 06/05/24 07:50 Echinocytes Cancelled 06/03/24 05:59 Acanthocytes (Spur) Cancelled 06/03/24 05:59 Rouleaux Cancelled 06/03/24 05:59 RBC Agglutinates Cancelled 06/03/24 05:59 Schistocytes Cancelled 06/03/24 05:59 Sezary Cell Cancelled 06/03/24 05:59 PT 27.8 Seconds (9.0-12.0) H 06/11/24 07:37 INR 2.8 (0.9-1.1) H 06/11/24 07:37 APTT 43 Seconds (21-31) H 05/31/24 12:05 PTT Ratio 1.6 05/31/24 12:05 Sodium 143 mmol/L (136-145) 06/10/24 09:42 Potassium 3.3 mmol/L (3.5-5.1) L D 06/10/24 09:42 Chloride 107 mmol/L (98-107) 06/10/24 09:42 Carbon Dioxide 28 mmol/L (21-32) 06/10/24 09:42 Anion Gap 8 (3-11) 06/10/24 09:42 BUN 53 mg/dl (6-23) H 06/10/24 09:42 Creatinine 4.64 mg/dl (0.6-1.4) H* D 06/10/24 09:42 Est Cr Clr Drug Dosing 14.2 ml/min 06/10/24 09:42 eGFR 12.44 06/10/24 09:42 BUN/Creatinine Ratio 11.4 (10-20) 06/10/24 09:42 Glucose 94 mg/dl (70-99(Fasting)) 06/10/24 09:42 Calcium 7.9 mg/dl (8.6-10.3) L 06/10/24 09:42 Phosphorus 4.2 mg/dl (2.5-4.9) 06/02/24 06:22 Magnesium 1.9 mg/dl (1.7-2.4) 06/07/24 05:23 Total Bilirubin 0.4 mg/dl (0.2-1.0) 06/01/24 06:26 AST 36 U/L (13-39) 06/01/24 06:26 ALT 30 U/L (7-52) 06/01/24 06:26 Alkaline Phosphatase 448 U/L (34-104) H 06/01/24 06:26 Ammonia 23.0 umol/L (18-72) 05/31/24 16:33 Troponin I High Sens 82.4 pg/ml (0-20) H* 05/31/24 21:04 Total Protein 4.5 gm/dl (6.0-8.3) L 06/01/24 06:26 Albumin 2.0 gm/dl (3.4-5.0) L 06/01/24 06:26 Globulin 2.5 gm/dl (2.5-4.0) 06/01/24 06:26 Albumin/Globulin Ratio 0.8 (0.9-2) L 06/01/24 06:26 Urine Color Yellow 06/02/24 03:16 Urine Appearance Turbid (Clear) A 06/02/24 03:16 Urine pH 7.5 (4.5-7.5) 06/02/24 03:16 Ur Specific [place] 1.030 (1.000-1.030) 06/02/24 03:16 Urine Protein 4+ (Negative) H 06/02/24 03:16 Urine Glucose (UA) Negative (Negative) 06/02/24 03:16 Urine Ketones Negative (Negative) 06/02/24 03:16 Urine Blood 1+ (Negative) H 06/02/24 03:16 Urine Nitrite Negative (Negative) 06/02/24 03:16 Urine Bilirubin Negative (Negative) 06/02/24 03:16 Urine Urobilinogen Negative (Negative) 06/02/24 03:16 Ur Leukocyte Esterase 2+ (Negative) H 06/02/24 03:16 Urine WBC (Auto) >50 /hpf (0-5) H 06/02/24 03:16 Urine RBC (Auto) 3-5 /hpf (0-2) H 06/02/24 03:16 U Hyaline Cast (Auto) >20 /lpf (0-2) H 06/02/24 03:16 U Epithel Cells (Auto) 3-5 /hpf (0-2) H 06/02/24 03:16 Urine Bacteria (Auto) 4+ (None Seen) H 06/02/24 03:16 Nasal Screen MRSA (PCR) Negative (Negative) 06/01/24 08:05 Stl C. cayetanensis PCR Not Detected (NotDetected) 06/02/24 19:15 Stool Rotavirus A PCR Not Detected (NotDetected) 06/02/24 19:15 Stl Adenov F 40/41 PCR Not Detected (NotDetected) 06/02/24 19:15 Stool Astrovirus (PCR) Not Detected (NotDetected) 06/02/24 19:15 Stool Campylobacter PCR Not Detected (NotDetected) 06/02/24 19:15 Stl C. diff Tox B Gene Negative Cdiff Gene (Neg) 06/02/24 19:15 Stool Cryptosporidium PCR Not Detected (NotDetected) 06/02/24 19:15 Stl E.coli Shiga Tox PCR Not Detected (NotDetected) 06/02/24 19:15 Stl Enterotoxigenic E PCR Not Detected (NotDetected) 06/02/24 19:15 Stool EPEC (PCR) Not Detected (NotDetected) 06/02/24 19:15 Stool EAEC (PCR) Not Detected (NotDetected) 06/02/24 19:15 Stl E. histolytica PCR Not Detected (NotDetected) 06/02/24 19:15 Stool Giardia Lamblia PCR Not Detected (NotDetected) 06/02/24 19:15 Stool Salmonella PCR Not Detected (NotDetected) 06/02/24 19:15 Stool Sapovirus (PCR) Not Detected (NotDetected) 06/02/24 19:15 Stl P. shigelloides PCR Not Detected (NotDetected) 06/02/24 19:15 Stl Shigella/EIEC PCR Not Detected (NotDetected) 06/02/24 19:15 St Y.enterocolitica PCR Not Detected (NotDetected) 06/02/24 19:15 Stool Vibrio (PCR) Not Detected (NotDetected) 06/02/24 19:15 Stl Vibrio cholerae PCR Not Detected (NotDetected) 06/02/24 19:15 Stl Norovirus GI/GII PCR Not Detected (NotDetected) 06/02/24 19:15 Adenovirus (PCR) Not Detected (NotDetected) 06/02/24 08:20 B. pertussis DNA (PCR) Not Detected (NotDetected) 06/02/24 08:20 B.parapertussis DNA PCR Not Detected (NotDetected) 06/02/24 08:20 C. pneumoniae DNA (PCR) Not Detected (NotDetected) 06/02/24 08:20 Coronavirus OC43 (PCR) Not Detected (NotDetected) 06/02/24 08:20 Coronavirus HKU1 (PCR) Not Detected (NotDetected) 06/02/24 08:20 Coronavirus 229E (PCR) Not Detected (NotDetected) 06/02/24 08:20 SARS-CoV-2 (PCR) Not Detected (NotDetected) 06/02/24 08:20 Coronavirus NL63 (PCR) Not Detected (NotDetected) 06/02/24 08:20 Hep Bs Antigen Negative (Negative) 05/31/24 16:33 Human Metapneumovir PCR Not Detected (NotDetected) 06/02/24 08:20 Influenza Type A (PCR) Not Detected (NotDetected) 06/02/24 08:20 Influenza Type B (PCR) Not Detected (NotDetected) 06/02/24 08:20 M. pneumoniae (PCR) Not Detected (NotDetected) 06/02/24 08:20 Parainfluenza 1 (PCR) Not Detected (NotDetected) 06/02/24 08:20 Parainfluenza 2 (PCR) Not Detected (NotDetected) 06/02/24 08:20 Parainfluenza 3 (PCR) Not Detected (NotDetected) 06/02/24 08:20 Parainfluenza 4 (PCR) Not Detected (NotDetected) 06/02/24 08:20 RSV (PCR) Not Detected (NotDetected) 06/02/24 08:20 Entero/Rhino (PCR) Not Detected (NotDetected) 06/02/24 08:20 Blood Parasites ID Cancelled 06/03/24 05:59 Impressions Chest X-Ray 05/31/24 12:14 XR chest 1V portable CLINICAL HISTORY: Chest pain, nonspecific COMPARISON STUDY: 05/05/2024 FINDINGS: Stable right dialysis catheter. Stable mild cardiomegaly with mild pulmonary vascular congestion. Inspiration is shallow. No effusion, consolidation, or pneumothorax. IMPRESSION: Stable exam. ACT 112: Negative or not required by law. Electronically signed by: Benjamin Gomez M.D. 05/31/2024 12:[address] 05/31/24 14:47 CT head/brain wo con CLINICAL HISTORY: 74 years-old Male with encephalopy. Acute altered mental status with syncope TECHNIQUE: Multiple axial CT images of the head were obtained without contrast. A dose lowering technique was utilized adhering to the principles of ALARA. CT DOSE: 625.8 mGy.cm COMPARISON: 05/13/2024 FINDINGS: No acute intracranial hemorrhage, midline shift, intracranial mass, hydrocephalus, territorial ischemia or abnormal extra-axial collection. Involutional changes. White matter hypodensities suggestive of probable mild chronic microvascular ischemic disease. Study is minimally motion degraded. The calvarium is intact. Prior bilateral lens repair. The paranasal sinuses, mastoid air cells, and middle ear cavities are clear. IMPRESSION: No acute intracranial abnormality. ACT 112: Negative or not required by law. The above report was generated using voice recognition software. It may contain grammatical, syntax or spelling errors. Electronically signed by: Trevon Veliz M.D. 05/31/2024 3:45 PM Ordered Studies 05/31/24 14:47 CT head/brain wo con Stat Hospital Course (1) AMS (altered mental status): (2) Syncope: (3) Multiple myeloma without remission: Patient is 74 yr male with PMH ESRD on HD, multiple myeloma, cirrhosis, Buerger disease, PVD, Burger's disease, BPH, AL light chain amyloidosis, history left above knee amputation, history of pulmonary embolism presented to ER with c/o reported syncope and hypotension at dialysis 05/31. Altered mental status Possible metabolic encephalopathy due to UTI, Chemo Syncopal episode H/O Hypotension Multiple myeloma Generalized weakness Ambulatory dysfunction Acute UTI --Recent hospitalization for AMS after chemo which reports mental status returned to baseline. Repeat chemo 8 days ago [employer] and since with AMS, generalized weakness, bedbound and poor oral intake. reports mental status improving over past 2 days. --CT head: No acute intracranial abnormality --CXR: No acute infiltrate --NH3 level wnl, MRSA neg --Blood cx negative to date --Urine cx growing K. pneumonia -- Completed IV Rocephin course -PT OT recommends rehab Case management to help with discharge planning Reorient frequently to minimize delirium Patient was refused for acute rehab. Patient's family not interested in SNF placement Family prefers to take patient home Plan to discharge home today Diarrhea Likely due to antibiotics Will check stool for C. difficile if recurrent Continue probiotics Resolved Elevated troponin Trop downtrending 98-->88--> 82 EKG: Sinus rhythm, LAFB Denies chest pain ESRD On HD on MWF schedule Nephrology consult for assistance with HD Continue dialysis as per nephrology Cirrhosis Noted on prior abdominal imaging Ammonia level WNL Monitor Buerger Disease History PVD History prior PE Continue aspirin, warfarin Monitor INR 2.8 today Continue Coumadin for anticoagulation Will need follow-up with Coumadin clinic on discharge BPH History requiring Sousa cath in past. No current Sousa cath. Requires self cath by (who prior nurse) typically once daily DVT Px warfarin CODE STATUS Full Code Disposition Home Total Time Total Time Spent Total Time Spent (In Minutes): 49 minutes Discharge Plan Discharge Items Patient Disposition: Home - Self-Care Reason For Visit: SYBCOPE Discharge Diagnosis: Acute metabolic encephalopathy Syncope Urinary tract infection End-stage renal disease on dialysis Activity: Per Instructions section Exercise/Sports: Gradually increase as tolerated Non-emergency contact: Primary Care Provider, Specialist and Wrecker Operator Call non-emergency contact if: you have any medication questions, your symptoms worsen, your pain is concerning for you and you have a fever Follow-up/Referrals: Rahul Tucker MD [Primary Care Provider] - (Date & Time 06/17/2024 9:00 AM Provider: Amina Bergman CRNP Family Medicine [facility] ) Diet: Dialysis Renal Diet Texture: Easy to Chew Addtl Attending Provider Instructions: Follow-up with your primary care physician Dr. Tucker in 1 week Follow-up with Coumadin clinic for monitoring your PT/INR and adjusting Coumadin dose as needed Follow-up with your traveler changer for dialysis --Get blood test PT/INR in 2 days and follow-up with Coumadin clinic for further instructions on Coumadin dosing Your PT/INR is 2.8 today (06/11/2024) Seek immediate medical attention if your symptoms reoccur or worsen Please take all medications as instructed on discharge list below. Please call if you have any questions or problems. You can reach a [facility] hospitalist on duty at [facility] 24 hours a day by calling [phone] Pending Studies at Discharge: No Stand-Alone Forms: My [facility], Smoking Cessation Medications and DC Order Prescriptions: New magnesium chloride [Mag 64] 64 mg Tablet,Delayed Release (Dr/Ec) 64 mg PO BID Qty: 15 0RF Continued midodrine 10 mg tablet 10 mg PO TID Qty: 270 3RF Hold Instructions: until further recommendations aspirin 81 mg Tablet,Delayed Release (Dr/Ec) 81 mg PO QAM folic acid 1 mg Tablet 1 mg PO QAM Qty: 30 0RF thiamine HCl (vitamin B1) 100 mg Tablet 100 mg PO QAM Qty: 30 0RF latanoprost 0.005 % Drops 1 drp OPB DAILY finasteride 5 mg Tablet 5 mg PO DAILY warfarin 5 mg tablet 5 mg PO UD Rx Instructions: 2.5mg on mon, wed, fri. 5mg on sun, tue, thur, sat torsemide 100 mg Tablet 100 mg PO UD Rx Instructions: Sun, Tue, Thur, Sat. Does not take on HD days diphenoxylate-atropine [Lomotil] 2.5-0.025 mg Tablet 1 tab PO QID PRN (Reason: Diarrhea) midodrine 10 mg Tablet 15 mg PO UD Rx Instructions: Takes 15mg on mon, wed, fri prior to HD Discharge Orders: Discharge Order (Routine); Ordered 06/11/24 Ordered By: Munir Hough Admission Data Admit Date/Time: 05/31/24 16:03 Attending Provider: Munir Hough Admit Provider: Zaire Lopez Primary Care Provider: Rahul Tucker Other Providers: Darby Mayorga; Zaire Lopez; Wander Mari [facility]; [facility]
[2024-06-11 12:14] VITALS: BP 137/72
--- NOTE | 2024-06-11 15:57 | Communication Note ---
Date of Service: June 11, 2024 Pt d/c today primarily at 's insistence as he's not a candidate for rehab currently and she does not want palliative discussion or a SNF. Bina had asked me to call yesterday to discuss dialysis; but I was unfortunately unable to find the time to call her yesterday and planned instead to speak w/ her today. Yesterday at dialysis I observed 2 nurses have to reposition the pt 2X in the space of 15 minutes (and they'd done it at least other time before I arrived) b/c he would shift in the bed and hang his feet off the side; pt was not re directable or able to assist w/ reposition. He also kept removing his hospital gown. Discussed w/ OP dialysis which is where he's supposed to dialyze tomorrow. communications administrator at OP unit reports: -prior to admission on the critical access hospital van, pt was undressing himself on the van and did unlatch restraining belt on van at least once. -took 4 staff to transfer him from w/c to dialysis chair on > 1 occasion before admission -he needs frequent redirecting to get through treatment With required transfers and arterial needles involved in dialysis, safety is priority. Spoke w/ Bina for 15 minutes after he had arrived home to tell her that for him to dialyze as OP, we need to : -have him arrive on lift pad -have family come with him to sit with him and redirect patient -she may need to consider/ discuss w/ critical access hospital transport if/whether it's safe to ride critical access hospital vans -we may opt not to do dialysis if the team feels it cannot be safely done -will dialyze 2 days weekly (next tx on 06/14) for next 2 wks to see how he's doing (see below) Bina asked if we could dialyze 2X weekly b/c he's so tired w/ HD treatments; he's been voiding 1-2 diapers daily; prior to recent chemo last month he voided > 1L daily per her report and held his own urinal w/o issues. I told her I don't think that he will tolerate 2 treatments weekly from a fluid standpoint but that we could try it for 2 weeks to see how he does and for everyone to focus on new steps above to keep him safe. if he's becoming dyspneic or overloaded, we could see about extra OP treatment as needed. Bina states "he is coming around (mentally) and I hope in another week or so he will be back to baseline. If he doesn't, I'll just have to deal with it but I don't want to give up hope." She states the chemo messed up his mentation but did recognize this could be the disease as well. Explained there is always hope and will continue to support pt and family as they move through his disease process. Asked hospitalist to work w/ iliana archibaldt to get him a lift pad for 06/14 treatment; they are working on it. Time spent on this today 60 minutes w/ multiple phone calls and coordination of care, formulation of safety needs for OP treatment. Multiple discussions w/ Dr Hough, w/ iliana dickey, with pt's nurse, with outpatient dialysis search manager/ clinical lead.
== END 2024-06-11 14:16 | disposition home or self-care (01) | DRG 91 ==
LOC: ED 11:48 → 2W 16:03 → SUATTDRO 16:03 → 2W 17:44